=== PATIENT | male | born 1950 | race Caucasian/White ===

== ENCOUNTER → 2018-04-09 08:14 | Outpatient (CLI) | payer MEDICARE, SELFPAY ==
[2018-04-09 09:29] LABS: Hemoglobin A1C% w Est Avg Glu 6.9 % (4.0-6.0)
[2018-04-09 09:39] LABS: BUN Creatinine Ratio 12.2 (6-22); Blood Urea Nitrogen 11 mg/dL (9-20); Calcium 8.7 mg/dL (8.4-10.2); Carbon Dioxide 27 mmol/L (22-32); Chloride 101 mmol/L (98-107); Estimated Glomerular Filt Rate > 60.0 mL/min (>60); Glucose 79 mg/dL (80-110); HEMOLYSIS < 15 (0-50); Potassium 4.1 mmol/L (3.4-5.1); Sodium 143 mmol/L (137-145)
== END ==
PROVIDERS: Family Provider Internal Medicine; PCP Internal Medicine; Visit Provider Internal Medicine
DX: E11.65 Type 2 diabetes mellitus with hyperglycemia (principal)
CPT/HCPCS: 36415; 80048; 83036

== ENCOUNTER → 2018-09-01 11:26 | Outpatient (CLI) | payer MEDICARE, SELFPAY ==
[2018-09-01 12:55] LABS: BUN Creatinine Ratio 13.3 (6-22); Blood Urea Nitrogen 12 mg/dL (9-20); Calcium 8.3 mg/dL (8.4-10.2); Carbon Dioxide 25 mmol/L (22-32); Chloride 100 mmol/L (98-107); Estimated Glomerular Filt Rate > 60.0 mL/min (>60); Glucose 186 mg/dL (80-110); HEMOLYSIS < 15 (0-50); Potassium 4.6 mmol/L (3.4-5.1); Sodium 140 mmol/L (137-145)
[2018-09-01 13:03] LABS: Hemoglobin A1C% w Est Avg Glu 9.8 % (4.0-6.0)
[2018-09-01 14:58] LABS: Creatinine Urine Random 202.5 mg/dL
[2018-09-01 15:00] LABS: Microalbumi Creatinin Ratio Ur 30.6 ug/mg CR (<30); Microalbumin Urine Random 6.2 mg/dL (0-1.6)
== END ==
PROVIDERS: PCP Internal Medicine; Visit Provider Internal Medicine
DX: E11.65 Type 2 diabetes mellitus with hyperglycemia (principal); E78.2 Mixed hyperlipidemia; I10 Essential (primary) hypertension; Z79.4 Long term (current) use of insulin
CPT/HCPCS: 36415; 80048; 82043; 82570; 83036

== ENCOUNTER → 2018-09-10 09:29 | Outpatient (CLI) | payer MEDICARE, SELFPAY ==
--- NOTE | 2018-09-10 09:31 | DI.ECHO.S_ITS ---
[facility] +---------+ : : [address] : : : : [id number] : : : : Phone: [phone]---------+ Echocardiogram Report + + :Name: CHRISTOPHE COBOS Study Date: 09/10/2018 Height: 66 in : :[facility] Exam Location: [place] Weight: 205 lb : : Gender: Male BSA: 2.0 m2 : :: 1950 Age: 67 yrs BP: 110/76 mmHg: :Reason For Study: ARRHYTHMIA : :Ordering Physician: Dr. Franco : :Megan Performed By: Dawna Norton : :Referring: DANIELLE TRUJILLO R : + + Interpretation Summary 1) Moderately dilated left ventricle with mildly to moderately reduced systolic function (EF about 40%). 2) Normal right ventricular size and function. 3) Moderate biatrial enlargement. 4) A patent foramen ovale is suspected (apical windows). 5) No significant valvular abnormalities. 6) Aortic root is mildly enlarged at 4.3 cm. The ascending aorta is mild- moderately enlarged at 4.3cm. The aortic arch is mildly enlarged at 3.6cm. 7) Compared to the Echo done 04/04/2015, no significant change. Procedure: A two-dimensional transthoracic echocardiogram with color flow and Doppler was performed. The study quality was technically adequate. Comparison is made with the echocardiogram of 04/04/15. The patient was in normal sinus rhythm during the exam. The patient had frequent PVCs during the exam. Left Ventricle: Proximal septal thickening is noted. The left ventricle is moderately dilated. Left ventricular systolic function is mild to moderately reduced. Left ventricular ejection fraction is estimated to be 40 +/- 5%. There is mild to moderate global hypokinesis of the left ventricle. Diastolic function could not be accurately assessed due to contradictory data. Right Ventricle: The right ventricle is normal in size and function. Atria: The left atrium is moderately dilated. The right atrium is moderately dilated. The atrial septum is aneurysmal. A patent foramen ovale is suspected. Mitral Valve: The mitral valve leaflets appear mildly thickened, but open well. There is mild mitral regurgitation. There are multiple regurgitant jets present. Aortic Valve: The aortic valve is normal in structure and function. There is trace aortic regurgitation. Tricuspid Valve: The tricuspid valve is normal. There is trace tricuspid regurgitation. The right ventricular systolic pressure is estimated to be at least 22 mmHg based on an estimated right atrial pressure of 3 mm Hg. Pulmonic Valve: The pulmonic valve is not well seen, but is grossly normal. There is trace pulmonic regurgitation. Great Vessels: The aortic root is mildly dilated. The ascending aorta is mild-moderately enlarged. The aortic arch is mildly enlarged. The pulmonary artery is normal size. The IVC is of normal diameter and collapses greater than 50% with a sniff. This suggests a low right atrial pressure of 3 mm Hg. Pericardium/ Pleura There is no pericardial effusion. There is no pleural effusion. MMode/2D Measurements & Calculations LVIDd: 6.4 cm LVOT diam: 2.2 cm LVIDs: 5.1 cm Ao root diam: 4.3 cm FS: 19.4 % asc Aorta Diam: 4.3 cm EPSS: 1.6 cm Ao Arch Diam (Prox Trans): 3.6 cm IVSd: 1.1 cm LVPWd: 0.97 cm LV thompson. diameter/BSA (cm/m^2): 3.1 LV sys. diameter/BSA (cm/m^2): 2.5 LA A2 area: 25.9 cm2 RA long axis: 4.8 cm LA A4 area: 23.1 cm2 RA area: 20.9 cm2 LA length (vol): 5.5 cm RA vol: 76.8 ml LA vol: 91.4 ml RA : 38.0 ml/m2 LA vol index: 45.2 ml/m2 IVC diam: 1.9 cm RVD1 (basal): 5.1 cm RVD2 (mid): 2.8 cm TAPSE: 2.3 cm Doppler Measurements & Calculations Ao V2 max: 85.5 cm/sec LVOT Max Ozzie: 73.5 cm/sec Ao V2 mean: 58.1 cm/sec LV V1 max P.2 mmHg Ao max P.9 mmHg LV V1 VTI: 12.4 cm Ao mean P.6 mmHg ADAM(I,D): 3.1 cm2 Ao V2 VTI: 15.1 cm ADAM(V,D): 3.2 cm2 sev ratio: 0.82 ADAM indexed to BSA (cm^2/m^2): 1.5 MV E max ozzie: 94.4 cm/sec TR max ozzie: 218.2 cm/sec TR max P.0 mmHg PA V2 max: 66.1 cm/sec PA V2 mean: 40.6 cm/sec PA mean P.76 mmHg PA pr(Accel): 44.1 mmHg Reading Physician:07:28 PM
== END ==
PROVIDERS: PCP Internal Medicine; Visit Provider Internal Medicine
DX: I34.0 Nonrheumatic mitral (valve) insufficiency (principal); I49.9 Cardiac arrhythmia, unspecified; I77.810 Thoracic aortic ectasia
CPT/HCPCS: 93306

== ENCOUNTER → 2018-09-10 10:17 | Outpatient (CLI) | payer MEDICARE, SELFPAY ==
--- NOTE | 2018-09-28 16:31 | PM.CARDMON.1 ---
[employer] Report Referral & Results Date Patient Seen: 09/10/18 Requesting provider: Salvador Guzman Indication: Arrhythmia Duration of monitoring (days): 4 Diary information: There were 5 diary entries associated with sinus rhythm and PVCs There are 2 patient triggered events associated with sinus rhythm and PVCs Data: Minimum heart rate was 65 beats per minute at 09:42 on 09/11/2018 Maximum heart rate was 132 beats per minute at 23:36 on 09/11/2018 and was sinus tach Less than 1% of identified beats were PVCs however 2.9% of identified beats were PACs Impression: This change agent shows both PACs and PVCs with PACs being more frequent. Patient's symptoms may be attributable to PVCs however based on his diary events and triggered events No other more serious dysrhythmias identified on this study
== END ==
PROVIDERS: PCP Internal Medicine; Visit Provider Internal Medicine
DX: I49.9 Cardiac arrhythmia, unspecified (principal)
CPT/HCPCS: 0296T; 0298T

== ENCOUNTER → 2019-01-15 11:40 | Outpatient (CLI) | payer MEDICARE, SELFPAY ==
[2019-01-15 12:26] LABS: Hemoglobin A1C% w Est Avg Glu 7.8 % (4.0-6.0)
[2019-01-15 12:32] LABS: Alanine Aminotransferase 70 IU/L (21-72); Albumin 4.4 g/dL (3.5-5.0); Albumin Globulin Ratio 1.3 (1.0-2.8); Alkaline Phosphatase 54 U/L (38-126); Aspartate Aminotransferase 63 IU/L (17-59); BUN Creatinine Ratio 10.9 (6-22); Bilirubin Total 0.6 mg/dL (0.2-1.3); Blood Urea Nitrogen 12 mg/dL (9-20); Calcium 8.5 mg/dL (8.4-10.2); Carbon Dioxide 25 mmol/L (22-32); Chloride 102 mmol/L (98-107); Estimated Glomerular Filt Rate > 60.0 mL/min (>60); Globulin 3.3 g/dL (1.7-4.1); Glucose 95 mg/dL (80-110); HEMOLYSIS < 15 (0-50); Potassium 3.9 mmol/L (3.4-5.1); Sodium 140 mmol/L (137-145); Total Protein 7.7 g/dL (6.3-8.2)
== END ==
PROVIDERS: PCP Internal Medicine; Visit Provider Internal Medicine
DX: E11.65 Type 2 diabetes mellitus with hyperglycemia (principal); I10 Essential (primary) hypertension; Z79.4 Long term (current) use of insulin
CPT/HCPCS: 36415; 80053; 83036

== ENCOUNTER → 2019-03-30 15:59 | Outpatient (CLI) | payer MEDICARE, SELFPAY ==
--- NOTE | 2019-03-30 | DI.ECHO.S_ITS ---
[facility]---------+ [facility] +---------+ : : [address] : [address] : : : : [id number] : : : : Phone: [phone]---------+ Echocardiogram Report + + :Name: CHRISTOPHE COBOS Study Date: 03/30/2019 Height: 66 in : :[facility] Exam Location: IS Weight: 203 lb : : Gender: Male BSA: 2.0 m2 : :: 1950 Age: 68 yrs BP: 120/80 mmHg: :Reason For Study: Cardiomyopathy : :Ordering Physician: Armando : :Yasmine Patino Performed By: Michelle Page : :Referring: CASSI CANTU : + + Interpretation Summary Left ventricular ejection fraction is estimated to be 35 +/- 5%. This is unchanged compared to the previous study. There is moderate global hypokinesis of the left ventricle. The best contractility is in the lateral wall. Diastolic parameters suggest a relaxation abnormality of the left ventricle, consistent with probable normal filling pressures. However, the tissue Doppler velocities of the mitral annulus are abnormal. The right ventricle is normal in size and function. Both atria are normal in size. The atrial septum is aneurysmal. There is no Doppler evidence for an interatrial shunt. Pulmonary artery pressures cannot be estimated because of the lack of a measurable TR jet velocity. Comparison is made with the echocardiogram of 09/10/2018. There is no significant change. Procedure: A two-dimensional transthoracic echocardiogram with color flow and Doppler was performed. The study quality was technically adequate. Comparison is made with the echocardiogram of 09/10/2018. The heart rate ranged between 87-104 bpm during the study. Left Ventricle: The left ventricle is normal in size. There is moderate asymmetric left ventricular hypertrophy. This is unchanged compared to the previous study. Left ventricular ejection fraction is estimated to be 35 +/- 5%. There is moderate global hypokinesis of the left ventricle. The best contractility is in the lateral wall. Diastolic parameters suggest a relaxation abnormality of the left ventricle, consistent with probable normal filling pressures. However, the tissue Doppler velocities of the mitral annulus are abnormal. Right Ventricle: The right ventricle is normal in size and function. Atria: Both atria are normal in size. There is no Doppler evidence for an interatrial shunt. The atrial septum is aneurysmal. Mitral Valve: The mitral valve leaflets appear mildly thickened, but open well. There is trace mitral regurgitation. Aortic Valve: The aortic valve is trileaflet. The aortic valve opens well. There is no aortic valve stenosis. There is trace aortic regurgitation. Tricuspid Valve: The tricuspid valve is normal in structure and function. There is trace tricuspid regurgitation. Pulmonary artery pressures cannot be estimated because of the lack of a measurable TR jet velocity. Pulmonic Valve: The pulmonic valve is not well seen, but is grossly normal. There is trace pulmonic regurgitation. Great Vessels: The aortic root is mildly dilated. The ascending aorta is mild-moderately enlarged. This is unchanged compared to the previous study. The pulmonary artery is not well visualized, but is probably normal size. The IVC is of normal diameter and collapses greater than 50% with a sniff. This suggests a low right atrial pressure of 3 mm Hg. Pericardium/ Pleura There is no pericardial effusion. There is no pleural effusion. MMode/2D Measurements & Calculations LVIDd: 5.5 cm Ao root diam: 4.1 cm LVIDs: 4.9 cm asc Aorta Diam: 4.3 cm FS: 11.8 % EPSS: 1.3 cm IVSd: 0.63 cm LVPWd: 1.4 cm LV thompson. diameter/BSA (cm/m^2): 2.8 LV sys. diameter/BSA (cm/m^2): 2.4 LA A2 area: 16.7 cm2 RA long axis: 8.0 cm LA A4 area: 24.4 cm2 RA area: 18.6 cm2 LA length (vol): 5.5 cm RA vol: 36.8 ml LA vol: 62.9 ml RA : 18.3 ml/m2 LA vol index: 31.2 ml/m2 IVC diam: 1.8 cm RVD1 (basal): 4.2 cm LVAd ap4: 34.1 cm2 RVD2 (mid): 3.0 cm LVAs ap4: 26.0 cm2 TAPSE: 2.4 cm LVLs ap4: 7.1 cm LVAd ap2: 22.3 cm2 LVLd ap2: 7.7 cm LVAs ap2: 16.6 cm2 LVLs ap2: 6.4 cm Doppler Measurements & Calculations Ao V2 max: 106.1 cm/sec LVOT Max Ozzie: 41.8 cm/sec Ao V2 mean: 76.3 cm/sec LV V1 max P.70 mmHg Ao max P.5 mmHg LV V1 VTI: 7.6 cm Ao mean P.6 mmHg sev ratio: 0.45 Ao V2 VTI: 16.9 cm MV E max ozzie: 38.7 cm/sec TR max ozzie: 157.9 cm/sec MV A max ozzie: 68.8 cm/sec TR max P.0 mmHg MV E/A: 0.56 PA V2 max: 60.8 cm/sec Med Peak E' Ozzie: 4.3 cm/sec PA V2 mean: 34.7 cm/sec E/E' med: 8.9 PA mean P.59 mmHg Lat Peak E' Ozzie: 4.9 cm/sec PA Accel Time: 0.09 sec E/E' lat: 8.0 E/e' average: 8.4 MV dec time: 0.08 sec Electronically signed by: Armando Underwood M.D. on Reading Physician:03/31/2019 09:01 AM
== END ==
PROVIDERS: PCP Internal Medicine; Visit Provider Internal Medicine Cardiovascular Disease
DX: I42.9 Cardiomyopathy, unspecified (principal); I77.89 Other specified disorders of arteries and arterioles
CPT/HCPCS: 93306

== ENCOUNTER → 2019-04-15 10:27 | Outpatient (CLI) | payer MEDICARE, SELFPAY ==
[2019-04-15 11:44] LABS: Hemoglobin A1C% w Est Avg Glu 7.8 % (4.0-6.0)
[2019-04-15 12:00] LABS: Alanine Aminotransferase 59 IU/L (21-72); Albumin 4.1 g/dL (3.5-5.0); Albumin Globulin Ratio 1.4 (1.0-2.8); Alkaline Phosphatase 64 U/L (38-126); Aspartate Aminotransferase 54 IU/L (17-59); BUN Creatinine Ratio 12.2 (6-22); Bilirubin Total 0.5 mg/dL (0.2-1.3); Blood Urea Nitrogen 11 mg/dL (9-20); Calcium 8.9 mg/dL (8.4-10.2); Carbon Dioxide 26 mmol/L (22-32); Chloride 99 mmol/L (98-107); Estimated Glomerular Filt Rate > 60.0 mL/min (>60); Glucose 110 mg/dL (80-110); HEMOLYSIS < 15 (0-50); Potassium 4.3 mmol/L (3.4-5.1); Sodium 137 mmol/L (137-145); Total Protein 7.1 g/dL (6.3-8.2)
== END ==
PROVIDERS: PCP Internal Medicine; Visit Provider Internal Medicine
DX: E11.65 Type 2 diabetes mellitus with hyperglycemia (principal); E78.2 Mixed hyperlipidemia; I10 Essential (primary) hypertension; Z79.4 Long term (current) use of insulin
CPT/HCPCS: 36415; 80053; 83036

== ENCOUNTER → 2019-07-08 10:39 | Outpatient (CLI) | payer MEDICARE, SELFPAY ==
[2019-07-08 12:24] LABS: Hemoglobin A1C% w Est Avg Glu 8.3 % (4.0-6.0)
[2019-07-08 13:13] LABS: Alanine Aminotransferase 49 IU/L (21-72); Albumin 4.3 g/dL (3.5-5.0); Albumin Globulin Ratio 1.4 (1.0-2.8); Alkaline Phosphatase 59 U/L (38-126); Aspartate Aminotransferase 50 IU/L (17-59); Bilirubin Total 0.7 mg/dL (0.2-1.3); Blood Urea Nitrogen 12 mg/dL (9-20); Calcium 8.6 mg/dL (8.4-10.2); Carbon Dioxide 25 mmol/L (22-32); Chloride 101 mmol/L (98-107); Estimated Glomerular Filt Rate > 60.0 mL/min (>60); Glucose 76 mg/dL (80-110); HEMOLYSIS < 15 (0-50); Sodium 140 mmol/L (137-145); Total Protein 7.3 g/dL (6.3-8.2)
== END ==
PROVIDERS: PCP Internal Medicine; Visit Provider Internal Medicine
DX: E11.65 Type 2 diabetes mellitus with hyperglycemia (principal); I10 Essential (primary) hypertension; Z79.4 Long term (current) use of insulin
CPT/HCPCS: 36415; 80053; 83036

== ENCOUNTER → 2019-09-20 15:45 | Outpatient (CLI) | payer MEDICARE, SELFPAY ==
[2019-09-20 16:49] LABS: BUN Creatinine Ratio 11.1 (6-22); Blood Urea Nitrogen 10 mg/dL (9-20); Calcium 9.5 mg/dL (8.4-10.2); Carbon Dioxide 27 mmol/L (22-32); Chloride 101 mmol/L (98-107); Estimated Glomerular Filt Rate > 60.0 mL/min (>60); Glucose 213 mg/dL (80-110); HEMOLYSIS < 15 (0-50); Potassium 4.6 mmol/L (3.4-5.1); Sodium 138 mmol/L (137-145)
[2019-09-20 17:00] LABS: Erythrocyte Sedimentation Rate 37 MM/HR (0-15)
== END ==
PROVIDERS: PCP Internal Medicine; Visit Provider Internal Medicine
DX: E11.9 Type 2 diabetes mellitus without complications (principal); H49.22 Sixth [abducent] nerve palsy, left eye; R51 Headache
CPT/HCPCS: 36415; 80048; 85651

== ENCOUNTER → 2019-09-22 12:52 | Outpatient (CLI) | payer MEDICARE, SELFPAY ==
--- NOTE | 2019-09-22 12:55 | DI.CT.S_ITS ---
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 After the administration of intravenous contrast, 1 mm thick sections acquired from the aortic arch through the [place] of Krishna. Post-contrast 4.5 mm thick sections then re-acquired from the foramen magnum to the vertex. 3-dimensional dqdsuce-yparphqvt-ijkagvahyr (MIP) and/or volume rendering reformats were acquired of the central intracranial vasculature and neck separately. COMPARISON: [facility], , ANGIO HEAD WITHOUT CONTRAST, 06/03/2012, 11:45. FINDINGS: Image quality: Excellent. BRAIN: CSF spaces: Ventricles are normal in size and shape. Basal cisterns are patent. No extra-axial fluid collections. Brain: No midline shift. No intracranial bleeds or masses. [place]-white matter interface appears intact. Skull and face: Calvarium and facial bones appear intact, without suspicious lesions. Orbits appear normal. Sinuses: Sinuses and mastoids are clear. HEAD CT ANGIOGRAPHY: Anterior circulation: Intracranial internal carotid arteries are normal in size and flow. The flow within the paired anterior cerebral arteries is normal and symmetric. The flow within the middle cerebral arteries is normal and symmetric. The anterior communicating artery is seen. No aneurysms are seen. Posterior circulation: There is focal calcification seen involving the distal left vertebral artery (segment V4) with near complete occlusion. The vertebral arteries join to form a normal appearing basilar artery. There is a prominent right posterior communicating artery seen, with an accompanying diminutive right P1 segment. This is attributed to a type origin of the right posterior cerebral artery, which is considered to be a normal developmental variant of typically no clinical consequence. Flow within the posterior cerebral arteries is normal and symmetric. No aneurysms are seen. NECK CT ANGIOGRAPHY: Carotid system: The great vessels demonstrate a conventional anatomy as they arise from the aortic arch. The origins of the common carotid arteries appear patent. The common carotid arteries demonstrate normal caliber and courses. The bifurcation regions are both widely patent. The internal carotid arteries demonstrate normal calibers and courses. Posterior circulation: The origins of the vertebral arteries both appear widely patent. The more superior extracranial portions of both vertebral arteries also demonstrate normal courses. Narrowing of V4 can be seen, as described above. They join to form a normal appearing basilar artery. Soft tissues: Visualized neck soft tissues demonstrate no suspicious abnormalities. Bones: No suspicious bony lesions. Visualized cervical spine appears normally aligned. Age-appropriate bony degenerative changes are seen, including moderate disc space narrowing at the C5-C6 level. IMPRESSION: No intracranial aneurysms are seen. There is focal prominent calcification seen involving the distal left vertebral artery (segment V4) with subtotal occlusion. Otherwise, no significant narrowings can be seen. Any quantitative measurements of stenosis were performed using NASCET criteria. Dictated by: Moo Gottlieb M.D. on 09/22/2019 at 13:21 Approved by: Moo Gottlieb M.D. on 09/22/2019 at 13:27
== END ==
PROVIDERS: PCP Internal Medicine; Visit Provider Internal Medicine
DX: I65.02 Occlusion and stenosis of left vertebral artery (principal); R51 Headache; H49.22 Sixth [abducent] nerve palsy, left eye; E11.9 Type 2 diabetes mellitus without complications
CPT/HCPCS: 70496; 70498; Q9967

== ENCOUNTER → 2019-10-06 13:15 | Outpatient (CLI) | payer MEDICARE, SELFPAY ==
[2019-10-06 13:47] LABS: BUN Creatinine Ratio 11.1 (6-22); Blood Urea Nitrogen 10 mg/dL (9-20); Calcium 8.4 mg/dL (8.4-10.2); Carbon Dioxide 26 mmol/L (22-32); Chloride 102 mmol/L (98-107); Estimated Glomerular Filt Rate > 60.0 mL/min (>60); Glucose 126 mg/dL (80-110); HEMOLYSIS < 15 (0-50); Potassium 4.3 mmol/L (3.4-5.1); Sodium 138 mmol/L (137-145)
[2019-10-06 15:45] LABS: Hemoglobin A1C% w Est Avg Glu 7.5 % (4.0-6.0)
== END ==
PROVIDERS: PCP Internal Medicine; Visit Provider Internal Medicine
DX: E11.65 Type 2 diabetes mellitus with hyperglycemia (principal); Z79.4 Long term (current) use of insulin
CPT/HCPCS: 36415; 80048; 83036

== ENCOUNTER → 2020-01-05 12:48 | Outpatient (CLI) | payer MEDICARE, SELFPAY ==
[2020-01-05 13:30] LABS: Hemoglobin A1C% w Est Avg Glu 7.6 % (4.0-6.0)
[2020-01-05 13:37] LABS: BUN Creatinine Ratio 16.7 (6-22); Blood Urea Nitrogen 15 mg/dL (9-20); Calcium 9.9 mg/dL (8.4-10.2); Carbon Dioxide 26 mmol/L (22-32); Chloride 99 mmol/L (98-107); Estimated Glomerular Filt Rate > 60.0 mL/min (>60); Glucose 161 mg/dL (80-110); HEMOLYSIS < 15 (0-50); Potassium 4.6 mmol/L (3.4-5.1); Sodium 138 mmol/L (137-145)
== END ==
PROVIDERS: PCP Internal Medicine; Referring Provider Internal Medicine; Visit Provider Internal Medicine
DX: E11.65 Type 2 diabetes mellitus with hyperglycemia (principal); I10 Essential (primary) hypertension; Z79.4 Long term (current) use of insulin
CPT/HCPCS: 36415; 80048; 83036

== ENCOUNTER → 2020-04-12 09:17 | Outpatient (CLI) | payer MEDICARE, SELFPAY ==
[2020-04-12 10:22] LABS: Hemoglobin A1C% w Est Avg Glu 8.3 % (4.0-6.0)
[2020-04-12 10:32] LABS: BUN Creatinine Ratio 14.1 (6-22); Blood Urea Nitrogen 12 mg/dL (9-20); Carbon Dioxide 21 mmol/L (22-32); Chloride 102 mmol/L (98-107); Estimated Glomerular Filt Rate > 60.0 mL/min (>60); Glucose 265 mg/dL (80-110); HEMOLYSIS < 15 (0-50); Potassium 4.4 mmol/L (3.4-5.1); Sodium 136 mmol/L (137-145)
== END ==
PROVIDERS: PCP Internal Medicine; Referring Provider Internal Medicine; Visit Provider Internal Medicine
DX: E11.65 Type 2 diabetes mellitus with hyperglycemia (principal); I10 Essential (primary) hypertension; Z79.4 Long term (current) use of insulin
CPT/HCPCS: 36415; 80048; 83036

== ENCOUNTER → 2020-07-25 10:57 | Outpatient (CLI) | payer MEDICARE, SELFPAY ==
[2020-07-25 11:57] LABS: Hemoglobin A1C% w Est Avg Glu 7.4 % (4.0-6.0)
[2020-07-25 12:08] LABS: BUN Creatinine Ratio 14.6 (6-22); Blood Urea Nitrogen 13 mg/dL (9-20); Calcium 8.9 mg/dL (8.4-10.2); Carbon Dioxide 21 mmol/L (22-32); Chloride 104 mmol/L (98-107); Estimated Glomerular Filt Rate > 60.0 mL/min (>60); Glucose 115 mg/dL (80-110); HEMOLYSIS < 15 (0-50); Potassium 4.5 mmol/L (3.4-5.1); Sodium 138 mmol/L (137-145)
== END ==
PROVIDERS: PCP Internal Medicine; Referring Provider Internal Medicine; Visit Provider Internal Medicine
DX: E11.65 Type 2 diabetes mellitus with hyperglycemia (principal); I42.8 Other cardiomyopathies; Z79.4 Long term (current) use of insulin; Z95.810 Presence of automatic (implantable) cardiac defibrillator
CPT/HCPCS: 36415; 80048; 83036

== ENCOUNTER → 2020-10-18 08:42 | Outpatient (CLI) | payer MEDICARE, SELFPAY ==
[2020-10-18 10:04] LABS: Hemoglobin A1C% w Est Avg Glu 7.8 % (4.0-6.0)
[2020-10-18 10:35] LABS: BUN Creatinine Ratio 16.8 (6-22); Blood Urea Nitrogen 16 mg/dL (9-20); Calcium 8.7 mg/dL (8.4-10.2); Carbon Dioxide 25 mmol/L (22-32); Chloride 102 mmol/L (98-107); Estimated Glomerular Filt Rate > 60.0 mL/min (>60); Glucose 135 mg/dL (80-110); HEMOLYSIS < 15 (0-50); Sodium 138 mmol/L (137-145)
== END ==
PROVIDERS: PCP Internal Medicine; Referring Provider Internal Medicine; Visit Provider Internal Medicine
DX: E11.9 Type 2 diabetes mellitus without complications (principal); E78.2 Mixed hyperlipidemia; I10 Essential (primary) hypertension
CPT/HCPCS: 36415; 80048; 83036

== ENCOUNTER → 2020-10-20 12:15 | Outpatient (CLI) | payer MEDICARE, SELFPAY ==
--- NOTE | 2020-10-20 12:17 | DI.CT.S_ITS ---
PROCEDURE: CT KIDNEY URETER BLADDER (KUB) INDICATIONS: Left Flank Pain TECHNIQUE: Noncontrast 5 mm thick sections acquired from the diaphragms to the symphysis. 5 mm thick coronal and sagittal reformats were then performed. For radiation dose reduction, the following was used: automated exposure control, adjustment of mA and/or kV according to patient size. COMPARISON: None. FINDINGS: Image quality: Excellent. Lung bases: Lung bases are clear. Heart size is normal. Urinary system: Both kidneys are normal in size. No kidney stones. No hydronephrosis or perinephric fat stranding. Both ureters appear non-dilated throughout their expected courses. Bladder wall thickness is normal; no calcified bladder stones. Other solid organs: Liver is normal in size. Gallbladder appears in normal, partially contracted . Pancreas is normal in contours. Spleen is normal in size. No adrenal nodules. Peritoneum and bowel: Unenhanced bowel loops demonstrate normal wall thickness and caliber. No free fluid or air. Nodes and vessels: No retroperitoneal or mesenteric adenopathy by size criteria. Aorta and inferior vena cava are normal in caliber. Abdominal wall: No ventral hernias. Pelvis: No free pelvic fluid. No inguinal hernias or adenopathy. Bones: No suspicious bony lesions. No vertebral body compression fractures. IMPRESSION: No hydronephrosis or nephrolithiasis is found. No inflammatory changes seen along the renal margins or ureters. A source of asymmetric left-sided predominant flank pain is not identified. Diverticulitis also is not seen. Dictated by: Tee Kidd M.D. on 10/20/2020 at 16:32 Approved by: Tee Kidd M.D. on 10/20/2020 at 16:33
== END ==
PROVIDERS: PCP Internal Medicine; Referring Provider Internal Medicine; Visit Provider Internal Medicine
DX: R10.9 Unspecified abdominal pain (principal)
CPT/HCPCS: 74176

== ENCOUNTER → 2020-11-14 11:35 | Outpatient (CLI) | payer MEDICARE, SELFPAY ==
[2020-11-14 13:26] LABS: BUN Creatinine Ratio 18.4 (6-22); Blood Urea Nitrogen 16 mg/dL (9-20); Calcium 9.4 mg/dL (8.4-10.2); Carbon Dioxide 25 mmol/L (22-32); Chloride 100 mmol/L (98-107); Cholesterol 166 mg/dL (140-199); Estimated Glomerular Filt Rate > 60.0 mL/min (>60); Glucose 183 mg/dL (80-110); HDL Cholesterol 34 mg/dL (40-60); HEMOLYSIS 18 (0-50); Magnesium 1.1 mg/dL (1.6-2.3); Potassium 4.2 mmol/L (3.4-5.1); Sodium 136 mmol/L (137-145); Triglycerides 500 mg/dL (35-150)
== END ==
PROVIDERS: PCP Internal Medicine; Referring Provider Nurse Practitioner; Visit Provider Nurse Practitioner
DX: I10 Essential (primary) hypertension (principal); E78.5 Hyperlipidemia, unspecified; I42.0 Dilated cardiomyopathy; Z95.810 Presence of automatic (implantable) cardiac defibrillator; R00.0 Tachycardia, unspecified
CPT/HCPCS: 36415; 80048; 80061; 83735

== ENCOUNTER → 2021-01-12 14:45 | Outpatient (CLI) | payer MEDICARE, SELFPAY ==
[2021-01-12] MEDS: COVID-19 VACC, Ad26(JANSSEN)/PF 0.5 ML IM (14:50)
== END ==
PROVIDERS: PCP Internal Medicine; Visit Provider Internal Medicine
DX: Z23 Encounter for immunization (principal)
CPT/HCPCS: 0031A; 91303

== ENCOUNTER → 2021-01-17 12:19 | Outpatient (CLI) | payer MEDICARE, SELFPAY ==
[2021-01-17 13:30] LABS: Hemoglobin A1C% w Est Avg Glu 8.6 % (4.0-6.0)
[2021-01-17 13:42] LABS: BUN Creatinine Ratio 17.8 (6-22); Blood Urea Nitrogen 13 mg/dL (9-20); Calcium 8.9 mg/dL (8.4-10.2); Carbon Dioxide 21 mmol/L (22-32); Chloride 101 mmol/L (98-107); Estimated Glomerular Filt Rate > 60.0 mL/min (>60); Glucose 95 mg/dL (80-110); HEMOLYSIS 28 (0-50); Potassium 4.3 mmol/L (3.4-5.1); Sodium 135 mmol/L (137-145)
== END ==
PROVIDERS: PCP Internal Medicine; Referring Provider Internal Medicine; Visit Provider Internal Medicine
DX: E11.65 Type 2 diabetes mellitus with hyperglycemia (principal); I10 Essential (primary) hypertension; Z79.4 Long term (current) use of insulin
CPT/HCPCS: 36415; 80048; 83036

== ENCOUNTER → 2021-02-08 10:36 | Outpatient (CLI) | payer MEDICARE, SELFPAY ==
[2021-02-08 11:39] LABS: BUN Creatinine Ratio 15.3 (6-22); Blood Urea Nitrogen 15 mg/dL (9-20); Calcium 9.6 mg/dL (8.4-10.2); Carbon Dioxide 21 mmol/L (22-32); Chloride 101 mmol/L (98-107); Cholesterol 138 mg/dL (140-199); Estimated Glomerular Filt Rate > 60.0 mL/min (>60); Glucose 259 mg/dL (80-110); HDL Cholesterol 31 mg/dL (40-60); HEMOLYSIS < 15 (0-50); LDL Cholesterol Calculated 27 mg/dL (<100); Potassium 4.3 mmol/L (3.4-5.1); Sodium 134 mmol/L (137-145); Triglycerides 400 mg/dL (35-150)
[2021-02-08 12:43] LABS: Magnesium 0.9 mg/dL (1.6-2.3)
== END ==
PROVIDERS: PCP Internal Medicine; Referring Provider Nurse Practitioner; Visit Provider Nurse Practitioner
DX: E78.5 Hyperlipidemia, unspecified (principal); I10 Essential (primary) hypertension; Z95.810 Presence of automatic (implantable) cardiac defibrillator; R00.0 Tachycardia, unspecified
CPT/HCPCS: 36415; 80048; 80061; 83735

== ENCOUNTER → 2021-03-19 12:44 | Outpatient (CLI) | payer MEDICARE, SELFPAY ==
[2021-03-19 13:47] LABS: Hemoglobin A1C% w Est Avg Glu 7.5 % (4.0-6.0)
[2021-03-19 13:52] LABS: BUN Creatinine Ratio 17.8 (6-22); Blood Urea Nitrogen 16 mg/dL (9-20); Calcium 9.5 mg/dL (8.4-10.2); Carbon Dioxide 22 mmol/L (22-32); Chloride 103 mmol/L (98-107); Estimated Glomerular Filt Rate > 60.0 mL/min (>60); Glucose 173 mg/dL (80-110); HEMOLYSIS < 15 (0-50); Potassium 4.5 mmol/L (3.4-5.1); Sodium 136 mmol/L (137-145)
== END ==
PROVIDERS: PCP Internal Medicine; Referring Provider Internal Medicine; Visit Provider Internal Medicine
DX: E11.65 Type 2 diabetes mellitus with hyperglycemia (principal); I10 Essential (primary) hypertension; Z79.4 Long term (current) use of insulin
CPT/HCPCS: 36415; 80048; 83036

== ENCOUNTER → 2021-06-13 11:59 | Outpatient (CLI) | payer MEDICARE, SELFPAY ==
[2021-06-13 13:01] LABS: Hemoglobin A1C% w Est Avg Glu 7.2 % (4.0-6.0)
[2021-06-13 13:40] LABS: BUN Creatinine Ratio 11.5 (6-22); Blood Urea Nitrogen 12 mg/dL (9-20); Calcium 8.9 mg/dL (8.4-10.2); Carbon Dioxide 24 mmol/L (22-32); Chloride 104 mmol/L (98-107); Estimated Glomerular Filt Rate > 60.0 mL/min (>60); Glucose 77 mg/dL (80-110); HEMOLYSIS < 15 (0-50); Magnesium 1.3 mg/dL (1.6-2.3); Potassium 4.5 mmol/L (3.4-5.1); Sodium 137 mmol/L (137-145)
== END ==
PROVIDERS: PCP Internal Medicine; Referring Provider Internal Medicine; Visit Provider Internal Medicine
DX: E83.42 Hypomagnesemia (principal); E11.65 Type 2 diabetes mellitus with hyperglycemia; E78.2 Mixed hyperlipidemia; Z79.4 Long term (current) use of insulin; I10 Essential (primary) hypertension
CPT/HCPCS: 36415; 80048; 83036; 83735

== ENCOUNTER 2021-07-06 00:54 | Observation (INO) | payer MEDICARE, SELFPAY ==
[2021-07-06] VITALS (12 sets, daily range): BP systolic 131–175; BP diastolic 68–100; PULSE 67–96; RESP 16–23; TEMP 36.1–36.6; O2SAT 96–98; BMI 32.2
--- NOTE | 2021-07-06 01:04 | DI.CT.S_ITS ---
PROCEDURE: CT STROKE INDICATIONS: left facial weakness TECHNIQUE: Noncontrast 4.5 mm thick angled axial sections acquired from the foramen magnum to the vertex, with coronal reformats. For radiation dose reduction, the following was used: automated exposure control, adjustment of mA and/or kV according to patient size. COMPARISON: None. FINDINGS: Image quality: Excellent. CSF spaces: Basal cisterns are patent. No extra-axial fluid collections. The ventricles are symmetric in size and shape. Brain: No intracranial bleeds or masses. 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 There is cerebral volume loss for age, with resultant ventricular and sulcal prominence. There are periventricular and deep white matter chronic small vessel ischemic changes. There is intracranial internal carotid artery atherosclerosis. Skull and face: Calvarium and visualized facial bones appear intact, without suspicious lesions. Sinuses: Visualized sinuses and mastoids are clear. IMPRESSION: No acute intracranial disease process. This study fulfills neurological imaging criteria for inclusion or exclusion of acute stroke therapies based on available published neurological guidelines. Dictated by: Mima Reece MD, PhD on 07/06/2021 at 7:14 Approved by: Mima Reece MD, PhD on 07/06/2021 at 7:15
--- NOTE | 2021-07-06 01:05 | DI.CT.S_ITS ---
PROCEDURE: CT ANGIO HEAD AND NECK INDICATIONS: Stroke, left facial weakness TECHNIQUE: After the administration of intravenous contrast, 1 mm thick sections acquired from the aortic arch through the [place] of Krishna. Post-contrast 4.5 mm thick sections then re-acquired from the foramen magnum to the vertex. 3-dimensional cspqdix-txpbruscs-xzmyxcfmid (MIP) and/or volume rendering reformats were acquired of the central intracranial vasculature and neck separately. COMPARISON: [facility], CT, CT STROKE, 07/06/2021, 1:12. FINDINGS: Image quality: Excellent. BRAIN: CSF spaces: Ventricles are normal in size and shape. Basal cisterns are patent. No extra-axial fluid collections. Brain: No midline shift. No intracranial bleeds. Densely calcified 7 x 3 millimeter left temporal extra-axial lesion noted which may represent a dural ossification or less likely calcified meningioma. Chronic right rivas radiata lacunar infarct. There is mild, diffuse cerebral volume loss. There are moderate periventricular and subcortical white matter chronic microvascular ischemic changes. [place]-white matter interface appears intact. Skull and face: Calvarium and facial bones appear intact, without suspicious lesions. Orbits appear normal. Sinuses: Sinuses and mastoids are clear. HEAD CT ANGIOGRAPHY: Anterior circulation: Intracranial internal carotid arteries are normal in size and flow. The flow within the paired anterior cerebral arteries is normal and symmetric. The flow within the middle cerebral arteries is normal and symmetric. The anterior communicating artery is seen. No aneurysms are seen. Posterior circulation: Atherosclerotic calcification noted in the V4 segment of the left vertebral artery which causes high-grade stenosis to near occlusion of the vessel. Intracranial right vertebral artery is fully patent. Normal flow noted in the basilar artery. Flow within the posterior cerebral arteries is normal and symmetric. Right posterior cerebral artery has a origin. No aneurysms are seen. Dural sinuses demonstrate normal postcontrast enhancement. NECK CT ANGIOGRAPHY: Carotid system: The great vessels demonstrate a conventional anatomy as they arise from the aortic arch. The origins of the common carotid arteries appear patent. The common carotid arteries demonstrate normal caliber and courses. Origin of the right internal carotid artery is fully patent. Atherosclerotic plaque noted in the origin of the left internal carotid artery which causes less than 50% stenosis of the vessel. Posterior circulation: Soft atherosclerotic plaque noted in the origin of the right vertebral artery which causes high-grade stenosis to near occlusion of the vessel. There is opacification of the right vertebral artery distal to the stenosis in the origin of the vessel. Origin of the left vertebral artery is fully patent. The more superior extracranial portions of both vertebral arteries also demonstrate normal courses and calibers. They join to form a normal appearing basilar artery. Soft tissues: Visualized neck soft tissues demonstrate no suspicious abnormalities. Left chest wall cardiac pacer. Visualized lungs are clear. Bones: No suspicious bony lesions. Visualized cervical spine appears normally aligned. IMPRESSION: 1. No acute intracranial disease process. 2. No large vessel occlusion, vascular dissection or aneurysm. 3. 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 4. Right internal carotid artery origin fully patent. Less than 50% stenosis of the origin of the left internal carotid artery. Any quantitative measurements of stenosis were performed using NASCET criteria. Dictated by: Mima Reece MD, PhD on 07/06/2021 at 8:08 Approved by: Mima Reece MD, PhD on 07/06/2021 at 8:18
--- NOTE | 2021-07-06 01:14 | ED_ITS ---
HPI - Neuro Symptoms/Deficit General Chief Complaint: Neuro Symptoms/Deficit Stated Complaint: loss of muscular control left side of face Time Seen by Provider: 07/06/21 00:57 Source: patient Mode of arrival: Ambulatory Limitations: no limitations History of Present Illness HPI Narrative: 70-year-old male occasional smoker with history of type 2 diabetes with use of insulin, hypertension, hyperlipidemia, GERD, cardiomyopathy with pacemaker presents with a chief complaint of left-sided facial numbness and weakness that started at 11:30 p.m.. He states that he was in his normal state of health throughout the course of the day and has no other symptoms leading into this. He noticed left-sided facial weakness when he was trying to drink at about 11 30 and was drooling out of his mouth. Additionally his only complaint otherwise is of an inability to close his left eye. He denies any trouble with speech, balance nor extremity numbness, tingling or weakness. He does not take any blood thinners. At registration he was complaining of neck discomfort and talking about its relationship to his facial symptoms and was therefore not recognized as code stroke until brought into the emergency department. He has no chest pain or shortness of breath. He has no nausea, vomiting or diarrhea. Upon arrival in the emergency department quickly was converted to a code stroke and taken to CT for evaluation, images pushed and tele stroke contacted Related Data Home Medications Medication Instructions Recorded Confirmed ivabradine 5 mg tablet 5 mg PO BID 04/12/20 06/19/21 magnesium oxide 400 mg (241.3 mg 400 mg PO DAILY 03/20/21 06/19/21 magnesium) tablet Previous Rx's Medication Instructions Recorded carvedilol 25 mg tablet (Coreg) 25 mg PO BID #180 tab 10/12/19 losartan 100 mg tablet (Cozaar) 100 mg PO QDAY #90 tab 10/12/19 simvastatin 40 mg tablet (Zocor) 20 mg PO DAILY #45 tab 10/12/19 spironolactone 25 mg tablet 25 mg PO QDAY #90 tab 10/12/19 Glucose: Test Strips #500 each 07/28/20 insulin NPH-regular 70-30 U-100 See Rx Instructions SUBCUT 08/30/20 insulin 100 unit/mL subcutaneous .COMPLEX #200 ml pen (Humulin 70/30 U-100 Jeane) tamsulosin 0.4 mg capsule 0.4 mg PO DAILY #90 cap 02/01/21 trazodone 50 mg tablet 50 mg PO HS #90 tabs 12/04/20 glipizide 10 mg tablet 10 mg PO BID #180 tab 01/02/21 metformin 500 mg tablet,extended 1,000 mg PO BID #360 tab 02/05/21 release 24 hr (Glucophage XR) gabapentin 300 mg capsule 300 mg PO BEDTIME #90 cap 04/30/21 nortriptyline 50 mg capsule See Rx Instructions PO HS #180 cap 04/30/21 omeprazole 20 mg capsule,delayed 20 mg PO Q DAY #90 cap 04/30/21 release flash glucose scanning reader #1 ea 06/19/21 (FreeStyle Tara 14 Day [place]) flash glucose sensor (FreeStyle #1 ea 06/19/21 Tara 14 Day Sensor) Allergies Allergy/AdvReac Type Severity Reaction Status Date / Time No Known Allergies Allergy Uncoded 06/19/21 10:28 Review of Systems Review of Systems Narrative: GENERAL: Denies chills, fatigue, malaise, fever, sweats. HEENT: Denies sinus pain, ear pain, sore throat, difficulty swallowing, dizziness. RESPIRATORY: Denies dyspnea, cough, wheezing, hemoptysis, sputum. CARDIOVASCULAR: Denies chest pain, palpitations, orthopnea, edema, GASTROINTESTINAL: Denies nausea, vomiting, abdominal pain, diarrhea, constipation, melena. : Denies dysuria, frequency, incontinence, hematuria, urinary retention. MUSCULOSKELETAL: denies weakness, joint pain, or bony pain SKIN: Denies rash, skin lesions, or other NEUROLOGIC: See HPI PSYCHIATRIC: No concerning psychosocial issues. 12 point review of systems is negative except for those stated above Patient History Medical History Automatic implantable cardiac defibrillator in situ (~07/2019) Degeneration of intervertebral disc of cervical region Diabetic peripheral neuropathy (07/25/15) Essential hypertension retirement current use of insulin (08/20/16) Mixed hyperlipidemia Nonischemic cardiomyopathy (09/09/16) Type 2 diabetes mellitus with hyperglycemia, with long-term current use of insulin Type 2 diabetes mellitus without complication Social History marital status: unmarried,single number of children: 0 household members: none lives independently: Yes caregiver/support person: Yes housing: house pets and animals: Yes education level: other (Bachelor's Degree) occupational status: other (Retired) current occupational exposures/hazards: No 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/yazidi: Religious travel history: recent leisure activities: music, reading and other (Hiking.) Smoking Status: Never smoker quit status: quit date established second hand exposure: No alcohol intake: current (1-2 drinks a day) substance use type: does not use Smoking Status: Never smoker alcohol intake frequency: a few times a month Substance Use Type: does not use Exam Narrative Exam Narrative: GENERAL: [70] year old patient appears stated age. Well- developed patient, in mild distress. HEAD: Atraumatic. Normocephalic. EYES: Pupils equal round and reactive. Extraocular motions intact. No scleral icterus. No injection or drainage. ENT: Nose without bleeding, purulent drainage. Throat without erythema, tonsillar hypertrophy or exudate. Airway patent. NECK: Trachea midline. Non tender CARDIOVASCULAR: Regular rate and rhythm without murmurs, gallops, or rubs. RESPIRATORY: Clear to auscultation. Breath sounds equal bilaterally. No wheezes, rales, or rhonchi. GASTROINTESTINAL: Abdomen soft, non-tender, nondistended. EXTREMITIES: No edema or joint tenderness. BACK: Nontender without deformity or crepitance. No flank tenderness. NEURO: AOx3. SKIN: No rash or erythema of visible areas Initial Vital Signs Initial Vital Signs: Vital Signs Temperature 97.9 F 07/06/21 01:07 Pulse Rate 96 H 07/06/21 01:07 Respiratory Rate 20 07/06/21 01:07 Blood Pressure 175/100 H 07/06/21 01:07 Pulse Oximetry 97 07/06/21 01:07 Scores NIH Stroke Scale Level of Conciousness: Alert, keenly responsive Ask month/age: Answers both questions correctly. Open/close eyes, close hand: Performs both tasks correctly Best gaze horizontal: Normal Visual schneider: No visual loss Facial palsy: Minor paralysis, flattened nasolabial fold, asymmetry on smiling Left arm drift: No drift for full 10 sec Right arm drift: No drift for full 10 sec Left leg drift: No drift for full 5 sec Right leg drift: No drift for full 5 sec Limb ataxia: Absent Sensory on face/arms/legs: Mild to moderate sensory loss, can tell touch Best language: Mild to moderate, slurs some words Dysarthria: Normal Extinction or inattention: No abnormality Total NIH Stroke scale score: 3 Course Orders Ordered: ED Orders 07/06/21 01:04 CT Stroke Stat Urine Drug Screen, Rapid Stat EKG-12 Lead Stat 07/06/21 01:05 CT angio head and neck Stat 07/06/21 01:10 Basic Metabolic Panel Stat Complete Blood Count AUTO DIFF Stat Troponin & CK Cardiac Panel Stat 07/06/21 01:20 Prothrombin Time INR Stat Sodium Chloride (Normal Saline 0.9%) 1,000 mls @ 150 mls/hr IV CONT REINA Discontinued Medications Aspirin (Aspirin 81 Mg Chew Tab) 324 mg PO NOW ONE Stop: 07/06/21 01:58 Consultations Consultation #1: call to TeleStroke. Patient has been evaluated at the bedside and discussed tPA with the patient who after receiving consent refused, stating that he felt the risk of a potential bad outcome from tPA was not worth the potential benefit. He understands that we have up until the 4.5 hour window to intervene and understands that if things worsen or he changes mind we can re visit the situation. Time: 01:13 Consultation #2: Dr. Guzman happy to accept on his service and will write his own orders. Vital Signs Vital signs: Vital Signs - 8 hr 07/06/21 01:07 07/06/21 01:27 07/06/21 01:30 Temperature 97.9 F Pulse Rate 96 H 86 85 Respiratory Rate 20 23 Blood Pressure 175/100 H 164/91 H 172/98 H Pulse Oximetry 97 97 96 MDM - Neuro Symptoms/Deficit Lab Data Result diagrams: 07/06/21 01:10 07/06/21 01:10 Labs: Lab Results 07/06/21 07/06/21 07/06/21 Range/Units 01:10 01:10 01:20 WBC 6.4 (4.5-11.0) X10^3/uL RBC 4.29 L (4.5-5.9) X10^6/uL Hgb 13.5 (13.5-17.5) g/dL Hct 39.5 L (41-53) % MCV 92.2 (80-100) fL MCH 31.5 (26-34) PG MCHC 34.2 (30-36) % RDW 14.0 (11.6-14.8) % Plt Count 157 (150-400) X10^3/uL Neut % (Auto) 50.3 (50-75) % Lymph % (Auto) 35.4 (25-40) % [place] % (Auto) 10.0 (3-14) % Eos % (Auto) 3.7 (2-4) % Baso % (Auto) 0.6 (0-2) % Neut # (Auto) 3200 (0469-8183) /uL Lymph # (Auto) 2300 (7841-8986) /uL [place] # (Auto) 600 (0-900) /uL Eos # (Auto) 200 (0-450) /uL Baso # (Auto) 0 (0-100) /uL PT 12.7 (10.1-12.7) SECONDS INR 1.1 (0.9-1.3) Sodium 138 (137-145) mmol/L Potassium 4.1 (3.4-5.1) mmol/L Chloride 104 (98-107) mmol/L Carbon Dioxide 22 (22-32) mmol/L BUN 11 (9-20) mg/dL Creatinine 0.82 (0.66-1.25) mg/dL Estimated GFR > 60.0 (>60) mL/min BUN/Creatinine Ratio 13.4 (6-22) Glucose 140 H (80-110) mg/dL Calcium 9.1 (8.4-10.2) mg/dL Total Creatine Kinase 278 H (55-170) U/L CK-MB (CK-2) 3.38 H (<2.37) ng/mL CK-MB (CK-2) Rel Index 1.2 L (1.5-5.0) % Troponin I 0.031 (0.01-0.034) ng/mL Point of Care Testing Glucose POC [address] scan - head: Radiologist's Impression: NAP CTA Head/Neck: Radiologist's Impression: No stenosis of right common carotid. No stenosis of left common carotid. Vertebral arteries are codominant. Wide patency of intracranial arterial circulation. MDM Narrative Medical decision making narrative: Patient will require hospitalization for further evaluation of his condition including ongoing neurologic exams, echoca rdiogram, stabilization and evaluation medications including appropriate discharge planning. Patient understands and is in agreement with the plan Discharge Plan Departure Patient Disposition: Admitted as Observation Clinical Impression: Cerebrovascular accident Admit Date/Time: 07/06/21 02:04 Admit Provider: Salvador Guzman
[2021-07-06 01:20] LABS: Add Manual Diff / Slide Review NO; Basophils Absolute Auto 0 /uL (0-100); Basophils Percent Auto 0.6 % (0-2); Eosinophils Absolute Auto 200 /uL (0-450); Eosinophils Percent Auto 3.7 % (2-4); Hematocrit 39.5 % (41-53); Hemoglobin 13.5 g/dL (13.5-17.5); Lymphocytes Absolute Auto 2300 /uL (1100-4500); Lymphocytes Percent Auto 35.4 % (25-40); Mean Corpuscular HGB Conc 34.2 % (30-36); Mean Corpuscular Hemoglobin 31.5 PG (26-34); Mean Corpuscular Volume 92.2 fL (80-100); Monocytes Absolute Auto 600 /uL (0-900); Neutrophils Absolute Auto 3200 /uL (1500-7000); Neutrophils Percent Auto 50.3 % (50-75); Platelet Count 157 X10^3/uL (150-400); Red Blood Cell Count 4.29 X10^6/uL (4.5-5.9); White Blood Cell Count 6.4 X10^3/uL (4.5-11.0)
[2021-07-06 01:30] LABS: BUN Creatinine Ratio 13.4 (6-22); Blood Urea Nitrogen 11 mg/dL (9-20); Calcium 9.1 mg/dL (8.4-10.2); Carbon Dioxide 22 mmol/L (22-32); Chloride 104 mmol/L (98-107); Creatine Kinase 278 U/L (55-170); Estimated Glomerular Filt Rate > 60.0 mL/min (>60); Glucose 140 mg/dL (80-110); Potassium 4.1 mmol/L (3.4-5.1); Sodium 138 mmol/L (137-145)
[2021-07-06 01:35] LABS: INR 1.1 (0.9-1.3); Prothrombin Time 12.7 SECONDS (10.1-12.7)
[2021-07-06 01:42] LABS: Troponin I 0.031 ng/mL (0.01-0.034)
[2021-07-06 01:46] LABS: CKMB % Relative Index 1.2 % (1.5-5.0); Creatine Kinase MB 3.38 ng/mL (<2.37); HEMOLYSIS 15 (0-50)
[2021-07-06] MEDS: ASPIRIN 81 MG CHEW TAB 324 MG PO (02:18)
[2021-07-06] MEDS: SODIUM CHLORIDE 0.9% 1,000 ML 150 ML IV (02:18)
--- NOTE | 2021-07-06 02:55 | DI.ECHO.S_ITS ---
[facility] +---------+ : : [address] : [place] : : : : [id number] : : : : Phone: [phone]+ Echocardiogram Report + + :Name: CHRISTOPHE COBOS Study Date: 07/06/2021 Height: 67 in : :[facility] ReadingLocation: Weight: 206 lb : : Gender: Male BSA: 2.0 m2 : :: 1950 Age: 70 yrs BP: 141/77 mmHg: :Reason For Study: Stroke : :Ordering Physician: CASSANDRA, : :DANIELLE Uribe Performed By: Wilian Mares : :Referring: DANIELLE TRUJILLO : + + Interpretation Summary Normal left ventricle size with ejection fraction 35 +/- 5% There is moderate global hypokinesis of the left ventricle. Grade I diastolic dysfunction. Mild aortic valve sclerosis. Mild mitral regurgitation. Mild tricuspid regurgitation. Mildly dilated aortic root and ascending aorta. Comparison is made with the echocardiogram of 03/30/2019, there has been no significant change. Procedure: A two-dimensional transthoracic echocardiogram with color flow and Doppler was performed. The study quality was technically adequate. Comparison is made with the echocardiogram of 03/30/2019. Left Ventricle: The left ventricle is normal in size and wall thickness. Left ventricular systolic function is moderately reduced. Left ventricular ejection fraction is estimated to be 35 +/- 5%. There is moderate global hypokinesis of the left ventricle. Diastolic parameters suggest a relaxation abnormality of the left ventricle, consistent with probable normal filling pressures. Right Ventricle: The right ventricle is normal in size and function. Atria: Both atria are normal in size. The atrial septum is aneurysmal. There is no Doppler evidence for an interatrial shunt. Mitral Valve: The mitral valve is normal in structure and function. There is mild mitral regurgitation. Aortic Valve: There is mild aortic valve sclerosis. There is trace aortic regurgitation. Tricuspid Valve: The tricuspid valve is normal in structure and function. There is mild tricuspid regurgitation. The right ventricular systolic pressure is estimated to be at least 26 mmHg based on an estimated right atrial pressure of 3 mm Hg. Pulmonic Valve: The pulmonic valve is normal in structure and function. There is no pulmonic valvular regurgitation. Great Vessels: The aortic root is mildly dilated. The ascending aorta is mildly enlarged. The IVC is of normal diameter and collapses greater than 50% with a sniff. This suggests a low right atrial pressure of 3 mm Hg. Pericardium/ Pleura There is no pericardial effusion. There is no pleural effusion. MMode/2D Measurements & Calculations LVIDd: 6.0 cm LVOT diam: 2.1 cm LVIDs: 5.0 cm Ao root diam: 4.0 cm FS: 16.2 % asc Aorta Diam: 4.1 cm IVSd: 1.1 cm LVPWd: 1.1 cm LV thompson. diameter/BSA (cm/m^2): 2.9 LV sys. diameter/BSA (cm/m^2): 2.4 LA A2 area: 14.3 cm2 RA long axis: 4.8 cm LA A4 area: 14.7 cm2 RA area: 15.0 cm2 LA length (vol): 4.9 cm RA vol: 39.9 ml LA vol: 36.2 ml RA : 19.5 ml/m2 LA vol index: 17.7 ml/m2 TAPSE: 1.8 cm Doppler Measurements & Calculations Ao V2 max: 115.4 cm/sec LVOT Max Ozzie: 75.6 cm/sec Ao V2 mean: 83.9 cm/sec LV V1 max P.3 mmHg Ao max P.3 mmHg LV V1 VTI: 12.9 cm Ao mean P.1 mmHg ADAM(I,D): 2.0 cm2 Ao V2 VTI: 22.5 cm ADAM(V,D): 2.3 cm2 sev ratio: 0.57 ADAM indexed to BSA (cm^2/m^2): 0.97 MV E max ozzie: 47.0 cm/sec TR max ozzie: 240.3 cm/sec MV A max ozzie: 81.5 cm/sec TR max P.1 mmHg MV E/A: 0.58 PA pr(Accel): 49.0 mmHg Med Peak E' Ozzie: 3.4 cm/sec E/E' med: 13.7 Lat Peak E' Ozzie: 3.4 cm/sec E/E' lat: 13.9 E/e' average: 13.8 MV dec time: 0.28 sec SV(LVOT): 44.7 ml Electronically signed by: Dimas Snider on Reading Physician:07/06/2021 03:20 PM
[2021-07-06 06:27] LABS: Ur Creatinine Normal (Normal); Ur Specific Gravity Normal (Normal); Urine Tetrahydrocannabinol Negative (Negative); Urine pH Normal (Normal)
[2021-07-06 06:28] LABS: UR Morphine/Opiate cutoff 300 Positive (Negative); Urine Amphetamines Negative (Negative); Urine Barbiturates Negative (Negative); Urine Benzodiazepines Negative (Negative); Urine Cocaine Negative (Negative); Urine MDMA Negative (Negative); Urine Methadone Negative (Negative); Urine Methamphetamines Negative (Negative); Urine Oxycodone Negative (Negative); Urine Phencyclidine Negative (Negative); Urine Tricyclic Antidepressant Positive (Negative)
--- NOTE | 2021-07-06 07:20 | PM.HP.1 ---
History of Present Illness History of Present Illness Date Patient Seen: 07/06/21 Time Patient Seen: 07:21 Chief complaint: loss of muscular control left side of face Narrative: 70-year-old male well known to me as I am his primary care physician. He presented to the emergency department with symptoms of left-sided facial drooping and or weakness beginning at about 23:30 on the 05 of July. Patient was evaluated in the emergency department felt to be having an acute CVA. Initial imaging workup was unremarkable. Tele stroke services were consulted and did recommend tPA but after consultation with patient patient elected to decline the tPA administration feeling as though the possible negative outcomes were worse than his current status. Patient was admitted for continued monitoring knowing the tPA could be administered if he worsened as well as further workup for possible etiology for his CVA Patient with multiple risk factors for stroke including his diabetes of course, his occasional smoking use, also he has a significant cardiomyopathy without evidence of ischemia status post implantable defibrillator placement. Patient is not on any anti-platelet therapy or blood thinners prior to this. Patient History Medical History Automatic implantable cardiac defibrillator in situ (~07/2019) Degeneration of intervertebral disc of cervical region Diabetic peripheral neuropathy (07/25/15) Essential hypertension intermediate frame tender current use of insulin (08/20/16) Mixed hyperlipidemia Nonischemic cardiomyopathy (09/09/16) Type 2 diabetes mellitus with hyperglycemia, with long-term current use of insulin Type 2 diabetes mellitus without complication Family & Social History Social History: household members none Prior Living Arrangements House lives independently Yes caregiver/support person Yes Safety & Behavioral: Feels Safe in Current Yes Environment Suicidal Ideation Description None Suicide Plan Description No Plan Tobacco & Substance use: Smoking Status Never smoker alcohol intake current alcohol intake frequency a few times a month Substance Use Type does not use Meds Home Medications and Allergies Home Medications Medication Instructions Recorded Confirmed Type carvedilol 25 mg tablet (Coreg) 25 mg PO BID #180 tab 10/12/19 06/19/21 Rx losartan 100 mg tablet (Cozaar) 100 mg PO QDAY #90 tab 10/12/19 06/19/21 Rx simvastatin 40 mg tablet (Zocor) 20 mg PO DAILY #45 tab 10/12/19 06/19/21 Rx spironolactone 25 mg tablet 25 mg PO QDAY #90 tab 10/12/19 06/19/21 Rx ivabradine 5 mg tablet 5 mg PO BID 04/12/20 06/19/21 History Glucose: Test Strips #500 each 07/28/20 06/19/21 Rx insulin NPH-regular 70-30 U-100 See Rx Instructions SUBCUT 08/30/20 06/19/21 Rx insulin 100 unit/mL subcutaneous .COMPLEX #200 ml pen (Humulin 70/30 U-100 KwikPen) tamsulosin 0.4 mg capsule 0.4 mg PO DAILY #90 cap 12/04/20 06/19/21 Rx trazodone 50 mg tablet 50 mg PO HS #90 tabs 12/04/20 06/19/21 Rx glipizide 10 mg tablet 10 mg PO BID #180 tab 01/02/21 06/19/21 Rx metformin 500 mg tablet,extended 1,000 mg PO BID #360 tab 02/05/21 06/19/21 Rx release 24 hr (Glucophage XR) magnesium oxide 400 mg (241.3 mg 400 mg PO DAILY 03/20/21 06/19/21 History magnesium) tablet gabapentin 300 mg capsule 300 mg PO BEDTIME #90 cap 04/30/21 06/19/21 Rx nortriptyline 50 mg capsule See Rx Instructions PO HS #180 cap 04/30/21 06/19/21 Rx omeprazole 20 mg capsule,delayed 20 mg PO Q DAY #90 cap 04/30/21 06/19/21 Rx release flash glucose scanning reader #1 ea 06/19/21 06/19/21 Rx (FreeStyle Tara 14 Day [place]) flash glucose sensor (FreeStyle #1 ea 06/19/21 06/19/21 Rx Tara 14 Day Sensor) Allergies Allergy/AdvReac Type Severity Reaction Status Date / Time No Known Allergies Allergy Uncoded 06/19/21 10:28 Review of Systems Constitutional Constitutional: Denies excessive sweating, Denies fever(s), Denies headache(s), Denies weakness, Denies weight gain and Denies weight loss Eyes Eyes: Denies change in vision, Denies itchy eyes, Denies loss of vision and Denies other visual disturbances ENT Ears, Nose, Mouth, and Throat: No change in voice, No dysphagia, No dizziness, No otalgia, No headache(s), No hoarseness, No lip swelling, No neck pain, No sore throat, No throat swelling and No tongue swelling Cardiovascular Cardiovascular: Denies chest pain, Denies syncope, Denies rapid heart rate, Denies irregular heart rhythm, Denies palpitations, Denies dyspnea, Denies dyspnea on exertion and Denies slow heart rate Respiratory Respiratory: Denies chest congestion, Denies cough, Denies hemoptysis, Denies dyspnea, Denies dyspnea on exertion, Denies stridor and Denies wheezing Gastrointestinal Gastrointestinal: Denies abdominal pain, Denies bloating, Denies change in bowel habits, Denies change in stool character, Denies dysphagia, Denies nausea, Denies vomiting and Denies hematemesis Genitourinary Genitourinary: Denies hematuria, Denies difficulty urinating and Denies urinary frequency Musculoskeletal Musculoskeletal: Denies abnormal gait, Denies myalgias, Denies arthralgias, Denies limited range of motion and Denies neck pain Integumentary/Breasts Skin/Breast: Denies bleeding lesions, Denies change in pigmentation, Denies changing lesions, Denies new lesions, Denies rash, Denies skin swelling, Denies sores and Denies jaundice Neurologic Neurologic: Denies abnormal gait, Denies behavioral changes, Denies confusion, Denies dizziness, Denies syncope, Denies headache(s), Denies loss of vision, Denies memory loss and Denies weakness Psychiatric Psychiatric: Denies behavioral changes, Denies change in appetite, Denies confusion, Denies difficulty concentrating, Denies auditory hallucinations, Denies memory loss, Denies mood swings and Denies suicidal ideation Endocrine Endocrine: Denies excessive sweating, Denies flushing, Denies polyuria and Denies palpitations Hematologic/Lymphatic Hematologic/Lymphatic: Denies easy bleeding, Denies easy bruising and Denies lymphadenopathy Allergic/Immunologic Allergic/Immunologic: Denies urticaria, Denies itchy eyes, Denies lip swelling, Denies throat swelling, Denies tongue swelling and Denies wheezing Exam Vital Signs (past 8 hours): - 07/06/21 01:07 07/06/21 01:27 07/06/21 01:30 Temperature 97.9 F Pulse Rate 96 H 86 85 Respiratory Rate 20 23 Blood Pressure 175/100 H 164/91 H 172/98 H Pulse Oximetry 97 97 96 07/06/21 02:55 Temperature 97.0 F L Pulse Rate 82 Respiratory Rate 16 Blood Pressure 144/82 H Pulse Oximetry 97 Oxygen Delivery Method Room Air Oxygen Flow Rate 0 Narrative Exam Narrative: Elderly male in no obvious distress lying in his hospital bed. Has obvious left facial drooping upon immediate inspection HEENT-normocephalic atraumatic PERRLA EOMs intact Neck-no lymphadenopathy no bruits Lungs-clear with good breath sounds Heart-regular rate and rhythm Abdomen-positive bowel tones Neuro-alert and oriented x3, weakness of left periorbital muscles as well as left facial drooping and slurred speech, moves all 4 extremities with 5/5 strength arms and legs bilaterally, no abnormal reflexes in his arms or legs, gait not tested Objective Labs Result Diagrams: 07/06/21 01:10 07/06/21 01:10 Labs: Laboratory Results - last 24 hr 07/06/21 07/06/21 07/06/21 01:10 01:10 01:20 WBC 6.4 RBC 4.29 L Hgb 13.5 Hct 39.5 L MCV 92.2 MCH 31.5 MCHC 34.2 RDW 14.0 Plt Count 157 Neut % (Auto) 50.3 Lymph % (Auto) 35.4 [place] % (Auto) 10.0 Eos % (Auto) 3.7 Baso % (Auto) 0.6 Neut # (Auto) 3200 Lymph # (Auto) 2300 [place] # (Auto) 600 Eos # (Auto) 200 Baso # (Auto) 0 PT 12.7 INR 1.1 Sodium 138 Potassium 4.1 Chloride 104 Carbon Dioxide 22 BUN 11 Creatinine 0.82 Estimated GFR > 60.0 BUN/Creatinine Ratio 13.4 Glucose 140 H Calcium 9.1 Total Creatine Kinase 278 H CK-MB (CK-2) 3.38 H CK-MB (CK-2) Rel Index 1.2 L Troponin I 0.031 U Opiates 300ng/mL cut Ur Oxycodone Screen Urine Methadone Screen Ur Barbiturates Screen U Tricyclic Antidepress Ur Phencyclidine Scrn Ur Amphetamines Screen U Methamphetamines Scrn Ur MDMA Scrn (Ecstasy) U Benzodiazepines Scrn Urine Cocaine Screen U Marijuana (THC) Screen 07/06/21 06:15 WBC RBC Hgb Hct MCV MCH MCHC RDW Plt Count Neut % (Auto) Lymph % (Auto) [place] % (Auto) Eos % (Auto) Baso % (Auto) Neut # (Auto) Lymph # (Auto) [place] # (Auto) Eos # (Auto) Baso # (Auto) PT INR Sodium Potassium Chloride Carbon Dioxide BUN Creatinine Estimated GFR BUN/Creatinine Ratio Glucose Calcium Total Creatine Kinase CK-MB (CK-2) CK-MB (CK-2) Rel Index Troponin I U Opiates 300ng/mL cut Positive H Ur Oxycodone Screen Negative Urine Methadone Screen Negative Ur Barbiturates Screen Negative U Tricyclic Antidepress Positive H Ur Phencyclidine Scrn Negative Ur Amphetamines Screen Negative U Methamphetamines Scrn Negative Ur MDMA Scrn (Ecstasy) Negative U Benzodiazepines Scrn Negative Urine Cocaine Screen Negative U Marijuana (THC) Screen Negative Assessment & Plan Assessment & Plan narrative: 1. Acute CVA-patient's CT angiography through the emergency department failed to show evidence of any intracranial or carotid issues. No evidence of hemorrhage on imaging either. Patient not a candidate for MRI given his implanted defibrillator. It appears patient's last echocardiogram was in 2019 will update that at this time. Also will obtain ultrasound of the carotids for confirmation of lack of disease in that location. I believe patient would benefit from anti-platelet therapy will be started on aspirin 325 mg daily. He would benefit from speech therapy and physical therapy. Unsure if he would benefit from occupational therapy at this point. At this point blood pressure is adequately although not perfectly controlled. No need for intervention for extreme hypertension as his sometime seen in the setting of a CVA. 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 Diabetes-patient takes a tremendous amount of insulin on a daily basis likely secondary to poor dietary compliance as well as his type 2 diabetes. Will go ahead and administer those doses here in the hospital careful monitoring as his diet will be better controlled here in the hospital etcetera. Will use short-acting insulin for hyperglycemia. Also continue his usual oral medications as well 3. Cardiac-continue patient's usual medications for his chronic severe nonischemic cardiomyopathy. 4. VTE prophylaxis-Lovenox has been ordered and will be employed Time Spent With Patient Critical Care time: I spent a total of [] minutes of critical care time on this patient's care today; this time is exclusive of procedural time.
[2021-07-06] MEDS: ASPIRIN EC 325 MG TABLET PO (08:31)
[2021-07-06] MEDS: ATORVASTATIN 20 MG TABLET 10 MG PO (08:31)
[2021-07-06] MEDS: carvediloL 12.5 MG TABLET 25 MG PO (08:32)
[2021-07-06] MEDS: glipiZIDE 5 MG TABLET 10 MG PO (08:33)
[2021-07-06] MEDS: ENOXAPARIN 40 MG/0.4 ML SYRINGE SUBCUT (08:33)
[2021-07-06] MEDS: PANTOPRAZOLE DR 20 MG TABLET PO (08:34)
[2021-07-06] MEDS: SPIRONOLACTONE 25 MG TABLET PO (08:34)
[2021-07-06] MEDS: TAMSULOSIN 0.4 MG CAPSULE PO (08:34)
[2021-07-06] MEDS: METFORMIN XR 500 MG TABLET 1000 MG PO (08:34)
[2021-07-06] MEDS: LOSARTAN 50 MG TABLET 100 MG PO (08:34)
[2021-07-06] MEDS: MAGNESIUM OXIDE 400 MG TABLET PO (08:34)
[2021-07-06 08:42] LABS: COVID19 -Nasal RAPID Negative (Negative)
[2021-07-06] MEDS: INSULIN NPH/REG 70-30 100 UNIT/ML 3ML VIAL 140 UNIT SUBCUT (08:49)
--- NOTE | 2021-07-06 11:35 | PT.IIE ---
Medical History (Last Reviewed 07/06/21 @ 08:17 by Salvador Guzman MD) Automatic implantable cardiac defibrillator in situ (~07/2019) Degeneration of intervertebral disc of cervical region Diabetic peripheral neuropathy (07/25/15) Essential hypertension jail current use of insulin (08/20/16) Mixed hyperlipidemia Nonischemic cardiomyopathy (09/09/16) Type 2 diabetes mellitus with hyperglycemia, with long-term current use of insulin Type 2 diabetes mellitus without complication Physical Therapy Inpatient Evaluation/Re-Eval M1 PT/OT-IP Prior Functional Status Start: 07/06/21 12:57 Freq: NEEDED Status: Active Protocol: Document 07/06/21 11:35 AB (Rec: 07/06/21 13:07 AB [email or web address]) Medical Review Prior Functional Status Medical History Reviewed Yes Communication able to make needs known Mobility and Gait pt stated that he is independent with all mobilities and ambulation without AD Social History Household Members none Living Arrangements House Number of Floors (Floors) Two Floors Number of Stairs To Enter/Railing? no steps to enter 12 steps R rail to 2nd level bedroom Home Environment Standard Height Toilet Home Equipment Crutches Additional Social History Comment pt stated that he does not have a working shower and only has a tub M2 PT-IP Current Condition Start: 07/06/21 12:57 Freq: NEEDED Status: Active Protocol: Document 07/06/21 11:35 AB (Rec: 07/06/21 13:07 AB [email or web address]) Physical Therapy Current Condition Current Condition Evaluation Date 07/06/21 Treatment Diagnosis CVA; weakness Onset Date 07/06/21 M3 PT-IP Subjective Start: 07/06/21 12:57 Freq: NEEDED Status: Active Protocol: Document 07/06/21 11:35 AB (Rec: 07/06/21 13:07 AB [email or web address]) Subjective Physical Therapy Visit Type Type Initial Evaluation Visit Start Time 11:35 Visit Stop Time 11:55 Total Visit Minutes 20 Number of MATERIALS SCHEDULER Visits 0 Physical Therapy Visit Comments Patient Comments pt is agreeable to do PT Therapy Pain Assessment Pain When Pain Assessed During Weight Bearing M4 PT-IP Mobility and Gait Start: 07/06/21 12:57 Freq: NEEDED Status: Active Protocol: Document 07/06/21 11:35 AB (Rec: 07/06/21 13:07 AB [email or web address]) PT-Bed Mobility Assessment Supine to Sit Supine to Sit Independent Sit to Supine Sit to Supine Independent PT-Transfer Assessment Sit to and From Stand Sit to and from Stand Independent Equipment Transfer Assistive Device None,Gait Belt Orthotic/Prosthetic Devices or Brace: No Transfers Transfer Destination Chair Transfer Technique ambulated without AD Transfer Ability Level of Assist Independent Gait Assessment Gait Gait Assistance Required: Standby Assistance Distance (Feet) 250 Able to Maintain Weight Bearing Status Yes During Gait Assistive Devices Assistive Device None,Gait Belt Orthotic/Prosthetic Devices or Brace: No Factors Limiting Gait Function Factors Limiting Gait Function Decreased Activity Tolerance Stair Climbing Assessment Evaluation Level of Assist On Stairs Standby Assistance Devices Stair Climbing Assistive Devices Right Railing Technique/Endurance Stair Climbing Direction Ascend and Descend Stair Climbing Technique Step Over Step Number of Steps Climbed 3 Query Text: Stair Climbing Set # Repetitions (reps) 2 PT-Balance Assessment Sitting Balance and Reactions Static Sitting Balance Ability Normal Dynamic Sitting Balance Ability Normal Standing Balance and Reactions Static Standing Balance Ability Good Dynamic Standing Balance Ability Good Device Used without AD M5 PT-IP Objective Assessments Start: 07/06/21 12:57 Freq: NEEDED Status: Active Protocol: Document 07/06/21 11:35 AB (Rec: 07/06/21 13:07 AB [id number]) Orientation Orientation/Cognition Level of Alertness Alert Orientation Name,Age,Birthday,Month,Date, Year,Day of Week,Place, Situation Language Function Ability No Deficits Noted Safety Awareness Understands Safety Issues Memory Description No Deficits Noted Gross Range of Motion Lower Extremity ROM Assessment Within Functional Limits Strength Lower Extremity Strength Assessment Within Functional Limits Sensation Assessment Comments Sensation Comments stated weakness on L side of face M6 PT-IP Treatment Start: 07/06/21 12:57 Freq: NEEDED Status: Active Protocol: Document 07/06/21 11:35 AB (Rec: 07/06/21 13:07 AB [id number]) Physical Therapy Treatment Education Education Provided Safety M7 PT-IP Assessment and Plan Start: 07/06/21 12:57 Freq: NEEDED Status: Active Protocol: Document 07/06/21 11:35 AB (Rec: 07/06/21 13:07 AB [email or web address]) PT Summary Assessment and Plan Potential Rehabilitation Potential Good Status of Condition at Evaluation Stable Summary Progress Towards Goals Safe For Discharge Assessment Summary PT eval completed and pt is independent with bed mobiity and transfers without AD. SBA provided for long distance ambulation without AD for safety during assessment but pt has no LOB. pt is at PLOF and no further PT intervention indicated at this time. 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 Frequency of Treatment Frequency Of Treatment Discharge Recommendations To Nursing Amount of Assist Needed Independent,Standby Assistance Discharge Recommendations PT Discharge Recommendations Home,Outpatient PT Transportation Needs at Discharge Private Vehicle
--- NOTE | 2021-07-06 12:29 | ST.IPIE ---
Visit Care Team Role Provider Type Khanh Ng DO Emergency Provider Physician Referring Provider Specialty: Emergency Medicine Address: [address] [place] [address], [address] Email: [email or web address] Salvador Guzman MD Admit Provider Physician Attending Provider Primary Care Provider Specialty: Internal Medicine Address: [address] [place] [address], [address], [place], [address] Email: [email or web address] Past Medical History (Last Reviewed 07/06/21 @ 08:17 by Salvador Guzman MD) Automatic implantable cardiac defibrillator in situ (Medical ~07/2019) Jul 19 2019 Degeneration of intervertebral disc of cervical region (Medical) Diabetic peripheral neuropathy (Medical 07/25/15) Essential hypertension (Medical) 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 Guzman Reason for Referral Loss of musculature following CVA. Setting Assessment Location Acute Care Visit Type Note Type Initial evaluation Patient Information Identification Type Name,Wristband History Per medical chart, Randolph is a 70 year old male who presented to the emergency department with symptoms of left-sided facial drooping and or weakness beginning at about 23 :30 on the 05 of July. He was evaluated in the emergency department felt to be having an acute CVA. Initial imaging workup was unremarkable. Tele stroke services were consulted and did recommend tPA but after consultation with patient, patient elected to decline the tPA administration feeling as though the possible negative outcomes were worse than his current status. Randolph presents with multiple risk factors for stroke including his diabetes, his occasional smoking use, and he has a significant cardiomyopathy without evidence of ischemia status post implantable defibrillator placement. Patient is not on any anti- platelet therapy or blood thinners prior to this. Subjective Observations Randolph was awake, alert, cooperative, and finishing breakfast when the clinician arrived. His nurse administered insulin after he finished breakfast. Reported by Patient Comment Randolph reported no difficulty with swallowing and some difficulty with chewing food as he left his partials at home and is currently missing many teeth. Current Diet Regular Baseline Feeding Method Independent in self-feeding Objective Assessment Mental Status Alert,Responsive,Cooperative Oral Integrity WFL Dentition Missing teeth,Upper dentures/ partials,Lower dentures/ partials Lip Function Mild impairment Observation of Lips at Rest Left sided weakness/Drooping Pucker Left sided weakness/drooping Lip Retraction Left sided weakness/Drooping Alternating Pucker/Lip Retraction Within normal limits Tongue Function Within normal limits Observations of Tongue at Rest Within normal limits Tongue Protrusion Within normal limits Tongue Lateralization Within normal limits Jaw Function Within normal limits Observations of Jaw at Rest Within normal limits Jaw Opening Within normal limits Jaw Closing Within normal limits Hard/Soft Palate Function Within normal limits Observations of Hard/Soft Palate Within normal limits Nasality Within normal limits Respiratory Sufficiency Within normal limits Comment Completed oral mechanism exam. Randolph presents with left facial weakness and a mild droop at rest. Left weakness also observed during lip retraction and pucker. Rapid and coordinated movement between lip retraction and pucker despite left weakness. Left weakness does not appear to impact feeding, swallowing, or speech. Missing dentition on top and bottom noted. Randolph stated his partials are at home, which makes it difficult to chew and may impact his speech. Other oral structures and functions appear within normal limits. Food and Liquid Trials Position During Assessment Slightly reclined,In bed Liquids Trialed Thin Solids Trialed Regular Administration Type Straw,Self-feeding Oral Impairment Within functional limits Oral Phase Comments Observed 4 trials with thin liquid (water, coffee) through straw and eating 2 slices of orange from breakfast. Prolonged mastication likely due to missing dentition. No oral residue or anterior loss of bolus. Pharyngeal Impairment Within normal limits Pharyngeal Phase Comments Hyolaryngeal elevation and excursion were timely and WNL. No overt signs/symptoms of aspiration noted and Randolph reported no difficulty while eating breakfast. Fatigue/Endurance Endurance WNL Comment No fatigue noted despite observation taking place after he finished breakfast. Findings Swallowing Function Within functional limits Severity of Swallow Impairment Within functional limits Contributing Factors to Swallow Mastication inefficiency Impairment Comments Mastication inefficiency due to missing partials. Prognosis Good Comment Patient presents with swallow function within normal limits. Speech therapy is not indicated at this time. Impact on Safety and Functioning No limitations Recommendations Instrumental Assessment No Swallowing Treatment No Recommended Solids Regular Recommended Liquids Thin Medication Recommendations As Tolerated Discharge Recommendations Home Education Patient/Caregiver Education Described results of evaluation,Patient expressed understanding of evaluation, Patient expressed agreement with goals & treatment plans, Patient expressed understanding of feeding recommendations
--- NOTE | 2021-07-06 13:51 | PC.NURSE ---
Patient A/O x 3, VSS, denies chest pain, SOB, numbness or tingling in extremities or weakness bilaterally. L facial droop still apparent, patient feels the L eye is improving. Tele on. Refusing SCD's. Up with SBA, denies dizziness. Tolerating diet. Voiding, BS active x 4, reports last BM 07/04. Saline locked in the R AC. ECHO completed bedside. Denies further needs at this time. Call light in reach.
--- NOTE | 2021-07-06 15:38 | CM.IDA ---
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 Patient lives at home , alone, states his brother Roscoe is his primary contact. Patient has neighbors he can call on as needed, but has been indp. and active at baseline and expects no needs from this COTTON DISPATCHER before DC. PT completed assessment and home w/outpatient PT is recommended. No needs expected from DC planning team although will remain available in case this changes before DC. ANGELIQUE Gallagher Discharge Planning/Care Management CM Discharge Assessment Start: 07/06/21 15:36 Freq: Status: Active Protocol: Document 07/06/21 15:36 NAIF (Rec: 07/06/21 15:38 NAIF [id number]) Discharge Planning Assessment Assigned Partner Manager ANGELIQUE Castaneda DPOA/Assigned Designee Name brother Gary Contact Information [phone] Advance Directives? No History Provided By Patient,Medical Record Prior Living Arrangements House Household Members none Type of transporation used prior to Drives own vehicle admit Independent with ADL's Yes Is patient alert and oriented? Yes Barriers to Discharge No Discharge Plan Home Transportation Arrangement Friend Referrals Initiated None needed
[2021-07-06] MEDS: ACETAMINOPHEN 325 MG TABLET 650 MG PO (15:40)
== END 2021-07-06 17:08 | disposition home or self-care (01) ==
LOC: ED 01:58 → AC 02:05
PROVIDERS: Admitting Provider Internal Medicine; Emergency Provider Emergency Medicine; PCP Internal Medicine; Referring Provider Emergency Medicine; Visit Provider Internal Medicine
DX: I63.9 Cerebral infarction, unspecified (principal); R20.0 Anesthesia of skin; R47.81 Slurred speech; R29.810 Facial weakness; R29.703 NIHSS score 3; E11.9 Type 2 diabetes mellitus without complications; Z79.4 Long term (current) use of insulin; I10 Essential (primary) hypertension; E78.5 Hyperlipidemia, unspecified; K21.9 Gastro-esophageal reflux disease without esophagitis; Z95.0 Presence of cardiac pacemaker; I42.8 Other cardiomyopathies; Z20.822 Contact with and (suspected) exposure to COVID-19
CPT/HCPCS: 36415; 36592; 70450; 70496; 70498; 80048; 80305; 82550; 82553; 82962; 84484; 85025; 85610; 87635; 92610; 93005; 93306; 96372; 97161; 99235; 99285; C9803; G0378; Q3014; J1650; J1815; Q9967

== ENCOUNTER 2021-07-30 00:21 | Observation (INO) | payer MEDICARE, SELFPAY ==
[2021-07-06 02:55] VITALS: BMI 32.2
[2021-07-30] VITALS (33 sets, daily range): BP systolic 117–223; BP diastolic 56–117; PULSE 66–123; RESP 13–36; TEMP 35.6–36.9; O2SAT 91–99; BMI 31.9
--- NOTE | 2021-07-30 00:33 | DI.RAD.S_ITS ---
PROCEDURE: XR CHEST 1V INDICATIONS: cough, sob TECHNIQUE: One view of the chest was acquired. COMPARISON: [facility], , CHEST 2 VIEW, 09/09/2016, 17:08. FINDINGS: Surgical changes and devices: Left-sided single lead pacemaker/defibrillator present. Lungs and pleura: Left basilar atelectasis and or infiltrate noted. Low lung volumes accentuate pulmonary interstitium and heart size. Mediastinum: Mediastinal contours appear normal. Heart size is normal. Atherosclerotic vascular calcification noted in the aortic arch. Bones and chest wall: No suspicious bony lesions. Overlying soft tissues appear unremarkable. IMPRESSION: Left basilar atelectasis and infiltrate accentuated by low lung volumes. Left-sided pacemaker/defibrillator without pneumothorax and Aortic atherosclerosis Approved by: Tae Flores M.D. on 07/30/2021 at 0:44
--- NOTE | 2021-07-30 00:35 | ED.SOB ---
HPI - SOB/Dyspnea General Chief Complaint: Shortness of Breath/Dyspnea Stated Complaint: fatigue chest congestion cough headache Time Seen by Provider: 07/30/21 00:25 Source: patient and old records reviewed Mode of arrival: Ambulatory Limitations: no limitations History of Present Illness HPI Narrative: This is a 70-year-old male comes emergency department complaint of feeling fatigued, under the weather as well as having a cough, some mild shortness of breath and chest congestion. Patient has had headache he states for a month with some left side of neck discomfort. He states that the left-sided headache and neck discomfort from a prior stroke or Easley's palsy he is unclear which. And that this has not changed or been new. He is unsure if he has had fevers but believes he may have. He has had some sweaty episodes. He has had some nausea but no vomiting he has had some abdominal discomfort but it states that he has been taking a lot of ibuprofen. He denies any changes to stools. No diarrhea, no black or bloody stools or constipation. No urinary dysuria urgency or frequency. He is not appreciate any swelling in his extremities. Patient states he is up-to-date on his COVID vaccinations. He does have a history of cardiomyopathy with an ICD in place, diabetes, hypertension and dyslipidemia. Patient is on aspirin 325 mg daily. He denies any known long history. He does not use inhalers. No tobacco, occasional alcohol, no illicit. He follows with Dr. 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 On the 06 of July for possible stroke and was admitted. Easley's palsy was in the differential but suspicion was stronger for stroke. Related Data Home Medications Medication Instructions Recorded Confirmed magnesium oxide 400 mg (241.3 mg 400 mg PO DAILY 03/20/21 07/19/21 magnesium) tablet Previous Rx's Medication Instructions Recorded carvedilol 25 mg tablet (Coreg) 25 mg PO BID #180 tab 10/12/19 losartan 100 mg tablet (Cozaar) 100 mg PO QDAY #90 tab 10/12/19 simvastatin 40 mg tablet (Zocor) 20 mg PO DAILY #45 tab 10/12/19 spironolactone 25 mg tablet 25 mg PO QDAY #90 tab 10/12/19 Glucose: Test Strips #500 each 07/28/20 insulin NPH-regular 70-30 U-100 See Rx Instructions SUBCUT 08/30/20 insulin 100 unit/mL subcutaneous .COMPLEX #200 ml pen (Humulin 70/30 U-100 KwikPen) tamsulosin 0.4 mg capsule 0.4 mg PO DAILY #90 cap 12/04/20 trazodone 50 mg tablet 50 mg PO HS #90 tabs 12/04/20 glipizide 10 mg tablet 10 mg PO BID #180 tab 01/02/21 metformin 500 mg tablet,extended 1,000 mg PO BID #360 tab 02/05/21 release 24 hr (Glucophage XR) gabapentin 300 mg capsule 300 mg PO BEDTIME #90 cap 04/30/21 nortriptyline 50 mg capsule See Rx Instructions PO HS #180 cap 04/30/21 omeprazole 20 mg capsule,delayed 20 mg PO Q DAY #90 cap 04/30/21 release flash glucose scanning reader #1 ea 06/19/21 (FreeStyle [place] 14 Day [place]) flash glucose sensor (FreeStyle #1 ea 06/19/21 Tara 14 Day Sensor) aspirin 325 mg tablet,delayed 325 mg PO DAILY #250 tab 07/06/21 release oxycodone 5 mg tablet 5 mg PO Q6H PRN #14 tab 07/16/21 Allergies Allergy/AdvReac Type Severity Reaction Status Date / Time No Known Drug Allergies Allergy Verified 07/19/21 10:18 Review of Systems Review of Systems ROS Unobtainable: All systems reviewed & are unremarkable except as noted in HPI and below Patient History Medical History Automatic implantable cardiac defibrillator in situ (~07/2019) Degeneration of intervertebral disc of cervical region Diabetic peripheral neuropathy (07/25/15) 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/holiness: Jainism travel history: recent leisure activities: music, reading and other (Hiking.) Smoking Status: Never smoker quit status: quit date established second hand exposure: No alcohol intake: current substance use type: does not use Smoking Status: Never smoker alcohol intake frequency: a few times a month Substance Use Type: does not use Exam Narrative Exam Narrative: GEN: chronically ill appearing male, alert and oriented x 3, patient appears to be in to mild distress. Patient is diaphoretic. HEENT: Atraumatic, pupils are equal round reactive to light, extraocular movements are intact, nares are clear, TMs are clear with no fluid, there is no conjunctival pallor. Throat is clear without any exudates, erythema, tonsillar enlargement or uvular deviation, normal speech. HEART: Slightly tachycardic but Regular rhythm without murmur, clicks, rubs. Pulses are equal in upper and lower extremities. No JVD. LUNGS:Lungs clear to auscultation, no wheezes, rales, crackles, chest moves symmetrically, mild tachypnea. Full speech. Dry cough intermittently. ABD:bowel sounds normal, soft, non-tender, no guarding, rebound, rigidity, no masses noted, no hepatosplenomegaly :No CVA tenderness MSCL: Non-tender, no muscle atrophy, muscles strength 5/5 upper and lower extremities, full range of motion, normal gait NEURO:CN 2-12 intact, sensation normal SKIN: Rash, erythema or skin changes noted. Initial Vital Signs Initial Vital Signs: Vital Signs Temperature 98.5 F 07/30/21 00:33 Pulse Rate 114 H 07/30/21 00:33 Respiratory Rate 26 H 07/30/21 00:33 Blood Pressure 223/117 H 07/30/21 00:33 Pulse Oximetry 98 07/30/21 00:33 Course Orders Ordered: ED Orders 07/30/21 00:33 XR chest 1V Stat EKG-12 Lead Stat 07/30/21 00:35 COVID19 -Nasal swab/Pre-Proc Stat 07/30/21 00:40 Complete Blood Count AUTO DIFF Stat Comprehensive Metabolic Panel Stat Lactate (Lactic Acid) Stat Lipase Stat NT-proBNP (BNP-Adult 18+) Stat Procalcitonin Stat Troponin & CK Cardiac Panel Stat 07/30/21 00:45 CT head/brain wo con Stat 07/30/21 01:00 Blood Culture Stat 07/30/21 01:23 CT angio chest PE protocol Stat 07/30/21 02:45 Troponin I Stat 07/30/21 02:50 Urine Culture Stat Urine Microscopic Stat 07/30/21 03:29 RT Consult Eval and Treat NOW Acetaminophen (Acetaminophen 325 Mg Tablet) 650 mg PO Q6HR PRN PRN Reason: Fever/Mild Pain (1-3) Dextrose (Dextrose 50 % In Water 25 Gm/50 Ml Syringe) 25 gm IV PRN PRN PRN Reason: Hypoglycemia Sodium Chloride (Normal Saline 0.9%) 1,000 mls @ 150 mls/hr IV CONT REINA Last Admin: 07/30/21 04:45 Dose: 150 mls/hr Documented by: Infusion: 07/30/21 04:05 Dose: 0 mls/hr Documented by: Admin: 07/30/21 00:58 Dose: 150 mls/hr Documented by: VIANNEY Insulin Human Lispro (Insulin Lispro 100 Unit/Ml 3ml Vial) 0 unit SUBCUT ACHS REINA; Protocol Nitroglycerin (Nitroglycerin 0.4 Mg Sl Tab) 0.4 mg SL [id number] PRN PRN Reason: Chest Pain Last Admin: 07/30/21 00:58 Dose: 0.4 mg Documented by: VIANNEY Ondansetron HCl (Ondansetron 4 Mg/2 Ml Inj) 4 mg IV Q4HR PRN PRN Reason: Nausea And Vomiting Discontinued Medications Albuterol (Albuterol 2.5 Mg/3 Ml Neb (Adult)) 2.5 mg INH NOW ONE Stop: 07/30/21 03:54 Last Admin: 07/30/21 03:58 Dose: 2.5 mg Documented by: PRANAV Aspirin (Aspirin 81 Mg Chew Tab) 324 mg PO NOW ONE Stop: 07/30/21 00:33 Last Admin: 07/30/21 00:58 Dose: 324 mg Documented by: VIANNEY Sodium Chloride (Normal Saline 0.9%) 1,000 mls @ 1,000 mls/hr IV BOLUS ONE Stop: 07/30/21 02:22 Last Admin: 07/30/21 04:05 Dose: Not Given Documented by: VIANNEY Metoprolol Tartrate (Metoprolol Tartrate 5 Mg/5 Ml Inj) 5 mg IV Q5M REINA Stop: 07/30/21 01:41 Last Admin: 07/30/21 04:32 Dose: Not Given Documented by: Admin: 07/30/21 04:32 Dose: Not Given Documented by: Admin: 07/30/21 04:32 Dose: Not Given Documented by: VIANNEY Reevaluation(s) Reevaluation #1: Patient felt better after nitro SL. He appears more comfortable. Time: 01:30 Reevaluation #2: Patient continues to have cough. On recheck he is not wheezy but attempted albuterol neb. patient does feel better than when he arrived but still feels somewhat unwell. After discussion his imaging and labs have improved as well as his hypertension but he still looks generally unwell and plan for observation. Time: 03:32 Consultations Consultation #1: Dr. Khalil, accepts for observation for Dr. Guzman. Plan for bridging orders. Vital Signs Vital signs: Vital Signs - 8 hr 07/30/21 00:33 07/30/21 00:48 07/30/21 01:00 Temperature 98.5 F Pulse Rate 114 H 104 H 111 H Respiratory Rate 26 H Blood Pressure 223/117 H Pulse Oximetry 98 96 96 07/30/21 01:03 07/30/21 01:06 07/30/21 01:10 Temperature Pulse Rate 123 H 123 H 119 H Respiratory Rate 24 Blood Pressure 139/77 150/84 H 166/77 H Pulse Oximetry 92 93 92 07/30/21 01:16 07/30/21 01:20 07/30/21 01:25 Temperature Pulse Rate 108 H 107 H 104 H Respiratory Rate 20 36 H Blood Pressure 180/89 H 182/89 H 169/85 H Pulse Oximetry 93 92 92 07/30/21 01:30 07/30/21 01:36 07/30/21 01:40 Temperature Pulse Rate 106 H 105 H 106 H Respiratory Rate Blood Pressure 175/84 H 164/92 H 190/91 H Pulse Oximetry 93 93 95 07/30/21 01:45 07/30/21 01:58 07/30/21 02:00 Temperature Pulse Rate 100 H 99 H 100 H Respiratory Rate Blood Pressure 117/56 L 183/90 H Pulse Oximetry 95 95 94 07/30/21 02:06 07/30/21 02:30 07/30/21 03:00 Temperature Pulse Rate 100 H 94 H 99 H Respiratory Rate 20 27 H Blood Pressure 171/91 H 178/89 H 189/91 H Pulse Oximetry 95 91 95 MDM - SOB/Dyspnea Lab Data Result diagrams: 07/30/21 00:40 07/30/21 00:40 Labs: Lab Results 07/30/21 07/30/21 07/30/21 Range/Units 00:35 00:40 00:40 WBC (4.5-11.0) X10^3/uL RBC (4.5-5.9) X10^6/uL Hgb (13.5-17.5) g/dL Hct (41-53) % MCV (80-100) fL MCH (26-34) PG MCHC (30-36) % RDW (11.6-14.8) % Plt Count (150-400) X10^3/uL Neut % (Auto) (50-75) % Lymph % (Auto) (25-40) % Barber % (Auto) (3-14) % Eos % (Auto) (2-4) % Baso % (Auto) (0-2) % Neut # (Auto) (7521-9931) /uL Lymph # (Auto) (0026-1055) /uL Barber # (Auto) (0-900) /uL Eos # (Auto) (0-450) /uL Baso # (Auto) (0-100) /uL Sodium (137-145) mmol/L Potassium (3.4-5.1) mmol/L Chloride (98-107) mmol/L Carbon Dioxide (22-32) mmol/L BUN (9-20) mg/dL Creatinine (0.66-1.25) mg/dL Estimated GFR (>60) mL/min BUN/Creatinine Ratio (6-22) Glucose (80-110) mg/dL Lactate 3.3 H (0.7-2.1) mmol/L Calcium (8.4-10.2) mg/dL Total Bilirubin (0.2-1.3) mg/dL AST (17-59) IU/L ALT (<50) IU/L Alkaline Phosphatase (38-126) U/L Total Creatine Kinase (55-170) U/L CK-MB (CK-2) (<2.37) ng/mL CK-MB (CK-2) Rel Index (1.5-5.0) % Troponin I (0.01-0.034) ng/mL NT-Pro-B Natriuret Pep 323 H (<125) pg/mL Total Protein (6.3-8.2) g/dL Albumin (3.5-5.0) g/dL Globulin (1.7-4.1) g/dL Albumin/Globulin Ratio (1.0-2.8) Lipase (23-300) U/L Procalcitonin 0.15 (<0.5) ng/mL Urine RBC (0-5/HPF) Urine WBC (0-5/HPF) Ur Squamous Epith Cells (0-5/HPF) Urine Bacteria (None) Ur Culture Indicated? SARS-CoV-2 (PCR) Negative (Negative) 07/30/21 07/30/21 07/30/21 Range/Units 00:40 00:40 02:45 WBC 7.2 (4.5-11.0) X10^3/uL RBC 4.29 L (4.5-5.9) X10^6/uL Hgb 13.3 L (13.5-17.5) g/dL Hct 39.5 L (41-53) % MCV 92.1 (80-100) fL MCH 31.1 (26-34) PG MCHC 33.7 (30-36) % RDW 13.8 (11.6-14.8) % Plt Count 146 L (150-400) X10^3/uL Neut % (Auto) 68.7 (50-75) % Lymph % (Auto) 20.1 L (25-40) % Barber % (Auto) 9.1 (3-14) % Eos % (Auto) 1.6 L (2-4) % Baso % (Auto) 0.5 (0-2) % Neut # (Auto) 4900 (9398-1476) /uL Lymph # (Auto) 1400 (4250-9818) /uL Barber # (Auto) 700 (0-900) /uL Eos # (Auto) 100 (0-450) /uL Baso # (Auto) 0 (0-100) /uL Sodium 135 L (137-145) mmol/L Potassium 3.7 (3.4-5.1) mmol/L Chloride 99 (98-107) mmol/L Carbon Dioxide 22 (22-32) mmol/L BUN 10 (9-20) mg/dL Creatinine 0.85 (0.66-1.25) mg/dL Estimated GFR > 60.0 (>60) mL/min BUN/Creatinine Ratio 11.8 (6-22) Glucose 298 H (80-110) mg/dL Lactate (0.7-2.1) mmol/L Calcium 9.6 (8.4-10.2) mg/dL Total Bilirubin 0.5 (0.2-1.3) mg/dL AST 34 (17-59) IU/L ALT 34 (<50) IU/L Alkaline Phosphatase 82 (38-126) U/L Total Creatine Kinase 303 H (55-170) U/L CK-MB (CK-2) 5.02 H (<2.37) ng/mL CK-MB (CK-2) Rel Index 1.7 (1.5-5.0) % Troponin I 0.030 0.031 (0.01-0.034) ng/mL NT-Pro-B Natriuret Pep (<125) pg/mL Total Protein 7.7 (6.3-8.2) g/dL Albumin 4.6 (3.5-5.0) g/dL Globulin 3.1 (1.7-4.1) g/dL Albumin/Globulin Ratio 1.5 (1.0-2.8) Lipase 393 H (23-300) U/L Procalcitonin (<0.5) ng/mL Urine RBC (0-5/HPF) Urine WBC (0-5/HPF) Ur Squamous Epith Cells (0-5/HPF) Urine Bacteria (None) Ur Culture Indicated? SARS-CoV-2 (PCR) (Negative) 07/30/21 07/30/21 Range/Units 02:48 02:50 WBC (4.5-11.0) X10^3/uL RBC (4.5-5.9) X10^6/uL Hgb (13.5-17.5) g/dL Hct (41-53) % MCV (80-100) fL MCH (26-34) PG MCHC (30-36) % RDW (11.6-14.8) % Plt Count (150-400) X10^3/uL Neut % (Auto) (50-75) % Lymph % (Auto) (25-40) % Barber % (Auto) (3-14) % Eos % (Auto) (2-4) % Baso % (Auto) (0-2) % Neut # (Auto) (3287-5033) /uL Lymph # (Auto) (7879-6990) /uL Barber # (Auto) (0-900) /uL Eos # (Auto) (0-450) /uL Baso # (Auto) (0-100) /uL Sodium (137-145) mmol/L Potassium (3.4-5.1) mmol/L Chloride (98-107) mmol/L Carbon Dioxide (22-32) mmol/L BUN (9-20) mg/dL Creatinine (0.66-1.25) mg/dL Estimated GFR (>60) mL/min BUN/Creatinine Ratio (6-22) Glucose (80-110) mg/dL Lactate 1.7 (0.7-2.1) mmol/L Calcium (8.4-10.2) mg/dL Total Bilirubin (0.2-1.3) mg/dL AST (17-59) IU/L ALT (<50) IU/L Alkaline Phosphatase (38-126) U/L Total Creatine Kinase (55-170) U/L CK-MB (CK-2) (<2.37) ng/mL CK-MB (CK-2) Rel Index (1.5-5.0) % Troponin I (0.01-0.034) ng/mL NT-Pro-B Natriuret Pep (<125) pg/mL Total Protein (6.3-8.2) g/dL Albumin (3.5-5.0) g/dL Globulin (1.7-4.1) g/dL Albumin/Globulin Ratio (1.0-2.8) Lipase (23-300) U/L Procalcitonin (<0.5) ng/mL Urine RBC None seen (0-5/HPF) Urine WBC None seen (0-5/HPF) Ur Squamous Epith Cells 1-5 /hpf (0-5/HPF) Urine Bacteria Few (2-10) H (None) Ur Culture Indicated? Culture not indicate SARS-CoV-2 (PCR) (Negative) Point of Care Testing Glucose POC 298 Urine Dip Bedside Urine Glucose 1000 mg/dl Bedside Urine Bilirubin - Negative Bedside Urine Ketone + 15 Urine Specific [place] 1.020 Bedside Urine Occult Blood ++ Bedside Urine pH 6.0 Bedside Urine Protein +++ 300 Bedside Urine Urobilinogen - Negative Bedside Urine Nitrite - Negative Bedside Urine Leukocytes - Negative Esterase Imaging Data Chest x-ray: Radiologist's Impression: [address] [address] XRay Report Signed Patient: Randolph Cisneros MR#: [id number] : 1950 Acct:[id number] Age/Sex: 70 / M Date of Service: 07/30/21 Loc: ED Accession Number: [id number] ?? Procedure: XR chest 1V Ordering Provider: Leela Lan D.O. PROCEDURE:? XR CHEST 1V ? INDICATIONS:? cough, sob ? TECHNIQUE:? One view of the chest was acquired.? ? COMPARISON:? [facility], , CHEST 2 VIEW, 09/09/2016, 17:08. ? FINDINGS:? ? Surgical changes and devices:? Left-sided single lead pacemaker/defibrillator present. ? Lungs and pleura:? Left basilar atelectasis and or infiltrate noted.? Low lung volumes accentuate pulmonary interstitium and heart size. ? Mediastinum:? Mediastinal contours appear normal.? Heart size is normal.? Atherosclerotic vascular calcification noted in the aortic arch. ? Bones and chest wall:? No suspicious bony lesions.? Overlying soft tissues appear unremarkable.? ? IMPRESSION:? ? Left basilar atelectasis and infiltrate accentuated by low lung volumes. Left-sided pacemaker/defibrillator without pneumothorax and Aortic atherosclerosis ? ? Approved by: Tae Flores M.D. on 07/30/2021 at 0:44? CT scan - chest: Radiologist's Impression: Launch?Image [address] [address] [address] Scan Report Signed Patient: Randolph Cisneros MR#: [id number] : 1950 Acct:[id number] Age/Sex: 70 / M Date of Service: 07/30/21 Loc: ED Accession Number: [id number] ?? Procedure: CT angio chest PE protocol Ordering Provider: Leela Lan D.O. PROCEDURE:? CT ANGIO CHEST PE PROTOCOL ? INDICATIONS:? chest pain, tachycardia ? TECHNIQUE:? After the administration of intravenous contrast, 2 mm thick sections acquired from the pulmonary apices to the posterior costophrenic angles.? For radiation dose reduction, the following was used:? automated exposure control, adjustment of mA and/or kV according to patient size.? ? COMPARISON:? [facility], CT, CT KIDNEY URETER BLADDER (KUB), 10/20/2020, 12:22.? [facility], CT, CT ANGIO HEAD AND NECK, 07/06/2021, 1:12.? [facility], CT, CT ANGIO HEAD AND NECK, 09/22/2019, 13:06. ? FINDINGS:? Image quality:? Excellent.? ? Pulmonary arteries:? Pulmonary arteries are normal in size, and demonstrate no intraluminal filling defects to suggest central pulmonary embolism.? ? Lungs and pleura:? Lungs are clear.? No pleural effusions or pneumothorax.? Central and peripheral airways are patent.? ? Mediastinum:? Heart size is normal, without pericardial effusion.? No mediastinal or hilar adenopathy.? Thoracic aorta is normal in caliber and enhancement.? Ring distal esophageal wall thickening and moderate hiatal hernia noted. ? Bones and chest wall:? No suspicious bony lesions.? Ribs and thoracic spine appear intact throughout.? Thyroid gland unremarkable as visualized.? No axillary or supraclavicular adenopathy.? ? Abdomen:? Unremarkable ? IMPRESSION:? ? 1. No evidence of pulmonary embolism, aortic dissection or aneurysm. ? 2. Moderate hiatal hernia with evidence of wall thickening of the hernia sac as well as distal esophagus consistent with esophagitis/gastritis ? Approved by: Tae Flores M.D. on 07/30/2021 at 1:09? CT scan - head: Radiologist's Impression: [address] [address] [address] Scan Report Signed Patient: Randolph Cisneros MR#: [id number] : 1950 Acct:[id number] Age/Sex: 70 / M Date of Service: 07/30/21 Loc: ED Accession Number: [id number] ?? Procedure: CT head/brain wo con Ordering Provider: Leela Lan D.O. PROCEDURE:? CT HEAD/BRAIN WO CON ? INDICATIONS:? headache, ? stroke 3 weeks ago, hypertension ? TECHNIQUE:? Noncontrast 4.5 mm thick angled axial sections acquired from the foramen magnum to the vertex, with coronal and sagittal reformats.? For radiation dose reduction, the following was used:? automated exposure control, adjustment of mA and/or kV according to patient size.? ? COMPARISON:? None. ? FINDINGS: ? Cerebrum, Cerebellum and Brainstem:? Moderate cerebral and cerebellar volume loss as well as moderate multifocal hypoattenuation in the deep and subcortical white matter present.? No acute hemorrhage or mass effect.? Lazcano-white distinction is preserved throughout the exam.? Basal cisterns and foramen magnum are clear. ? Ventricles:? Appropriate in size and position given the amount of cerebral atrophy.? No evidence of hydrocephalus. ? Skull Base:? The bony sella, pituitary gland and infundibulum are unremarkable.? Clivus and craniovertebral relationships are appropriate.? Visualized portions of external auditory canals and tympanic cavities are within normal limits. ? Calvarium and Scalp:? No scalp soft tissue swelling.? The underlying calvarium is intact without skull fracture or lytic lesion. ? Paranasal Sinuses:? Unremarkable as visualized.? No mucosal thickening or retention cyst noted. ? Mastoids:? Unremarkable as visualized.? No mastoid effusion present. ? Other:? Atherosclerotic calcification in the cavernous portions of the distal internal carotid and dense calcification intradural vertebral arteries are noted.? Bilateral intraocular lens replacements noted. ? IMPRESSION:? Moderate atrophy and multifocal white matter chronic ischemic change without acute hemorrhage or mass effect. ? ? ? Approved by: Tae Flores M.D. on 07/30/2021 at 1:02? ECG Data Attestation: I personally reviewed and interpreted this ECG as follows: Prior ECG tracings: available for review Interpretation: Determined rhythm, rate of 109 OH 176 QRS of 104 and QTC of 500. Likes axis deviation. Patient has prior EKG from 07/06/2021 with no acute EKG changes today. [facility] Narrative Medical decision making narrative: Is a 70-year-old male with complaint of cough chest congestion fatigue and headache that states he has just not been improving. Patient was quite hypertensive when he arrived. He had some improvement with nitro sublingual but did not resolve. Troponin x2 is negative, no acute EKG changes, BNP is only very mildly elevated. Chest x-ray shows possible atelectasis, CT of head and chest do not show any acute changes. Patient has chronic baseline anemia, platelets appear to be chronically low intermittently and he does not have a leukocytosis. Procalcitonin is negative. Blood cultures are pending. 3.3 and has normalized here in the department to 1.7 with minimal fluids. He does have slightly elevated glucose, ketones in his urine but CO2 is 22 but anion gap does calculated 14. Patient's lipase is slightly elevated at 393. Patient initial rapid COVID swab was negative. He hyper intention has improved in the seem to somewhat improve his symptoms but he does still have a significant cough. But does sound clear on exam. Patient was given 1 breathing treatment in the department and discussion with hospitalist about observing. Bridging orders were written for. Respiratory panel was sent as this will include PCR COVID for admission as well checking for other possible viral upper respiratory causes. Discharge Plan Departure Patient Disposition: Admitted as Observation Clinical Impression: Hypertensive urgency, Dyspnea, Cough Admit Date/Time: 07/30/21 03:32 Admit Provider: Sourav Khalil
--- NOTE | 2021-07-30 00:45 | DI.CT.S_ITS ---
PROCEDURE: CT HEAD/BRAIN WO CON INDICATIONS: headache, ? stroke 3 weeks ago, hypertension TECHNIQUE: Noncontrast 4.5 mm thick angled axial sections acquired from the foramen magnum to the vertex, with coronal and sagittal reformats. For radiation dose reduction, the following was used: automated exposure control, adjustment of mA and/or kV according to patient size. COMPARISON: None. FINDINGS: Cerebrum, Cerebellum and Brainstem: Moderate cerebral and cerebellar volume loss as well as moderate multifocal hypoattenuation in the deep and subcortical white matter present. No acute hemorrhage or mass effect. Lazcano-white distinction is preserved throughout the exam. Basal cisterns and foramen magnum are clear. Ventricles: Appropriate in size and position given the amount of cerebral atrophy. No evidence of hydrocephalus. Skull Base: The bony sella, pituitary gland and infundibulum are unremarkable. Clivus and craniovertebral relationships are appropriate. Visualized portions of external auditory canals and tympanic cavities are within normal limits. Calvarium and Scalp: No scalp soft tissue swelling. The underlying calvarium is intact without skull fracture or lytic lesion. Paranasal Sinuses: Unremarkable as visualized. No mucosal thickening or retention cyst noted. Mastoids: Unremarkable as visualized. No mastoid effusion present. Other: Atherosclerotic calcification in the cavernous portions of the distal internal carotid and dense calcification intradural vertebral arteries are noted. Bilateral intraocular lens replacements noted. IMPRESSION: Moderate atrophy and multifocal white matter chronic ischemic change without acute hemorrhage or mass effect. Approved by: Tae Flores M.D. on 07/30/2021 at 1:02
[2021-07-30 00:52] LABS: COVID19 -Nasal RAPID Negative (Negative)
[2021-07-30 00:56] LABS: Add Manual Diff / Slide Review NO; Basophils Absolute Auto 0 /uL (0-100); Basophils Percent Auto 0.5 % (0-2); Eosinophils Absolute Auto 100 /uL (0-450); Eosinophils Percent Auto 1.6 % (2-4); Hematocrit 39.5 % (41-53); Hemoglobin 13.3 g/dL (13.5-17.5); Lymphocytes Absolute Auto 1400 /uL (1100-4500); Lymphocytes Percent Auto 20.1 % (25-40); Mean Corpuscular HGB Conc 33.7 % (30-36); Mean Corpuscular Hemoglobin 31.1 PG (26-34); Mean Corpuscular Volume 92.1 fL (80-100); Monocytes Absolute Auto 700 /uL (0-900); Monocytes Percent Auto 9.1 % (3-14); Neutrophils Absolute Auto 4900 /uL (1500-7000); Neutrophils Percent Auto 68.7 % (50-75); Platelet Count 146 X10^3/uL (150-400); Red Blood Cell Count 4.29 X10^6/uL (4.5-5.9); Red Cell Distribution Width 13.8 % (11.6-14.8); White Blood Cell Count 7.2 X10^3/uL (4.5-11.0)
[2021-07-30] MEDS: ASPIRIN 81 MG CHEW TAB 324 MG PO (00:58)
[2021-07-30] MEDS: SODIUM CHLORIDE 0.9% 1,000 ML 150 ML IV ×2 (00:58→04:45)
[2021-07-30] MEDS: NITROGLYCERIN 0.4 MG SL TAB SL (00:58)
[2021-07-30 01:06] LABS: Alanine Aminotransferase 34 IU/L (<50); Albumin 4.6 g/dL (3.5-5.0); Albumin Globulin Ratio 1.5 (1.0-2.8); Alkaline Phosphatase 82 U/L (38-126); Aspartate Aminotransferase 34 IU/L (17-59); BUN Creatinine Ratio 11.8 (6-22); Bilirubin Total 0.5 mg/dL (0.2-1.3); Blood Urea Nitrogen 10 mg/dL (9-20); Calcium 9.6 mg/dL (8.4-10.2); Carbon Dioxide 22 mmol/L (22-32); Chloride 99 mmol/L (98-107); Creatine Kinase 303 U/L (55-170); Estimated Glomerular Filt Rate > 60.0 mL/min (>60); Globulin 3.1 g/dL (1.7-4.1); Glucose 298 mg/dL (80-110); HEMOLYSIS < 15 (0-50); Lipase 393 U/L (23-300); Potassium 3.7 mmol/L (3.4-5.1); Sodium 135 mmol/L (137-145); Total Protein 7.7 g/dL (6.3-8.2)
[2021-07-30 01:15] LABS: NT-proBNP (BNP-Adult 18+) 323 pg/mL (<125)
[2021-07-30 01:17] LABS: Lactate (Lactic Acid) 3.3 mmol/L (0.7-2.1)
[2021-07-30 01:22] LABS: CKMB % Relative Index 1.7 % (1.5-5.0); Creatine Kinase MB 5.02 ng/mL (<2.37)
[2021-07-30 01:23] LABS: Procalcitonin 0.15 ng/mL (<0.5)
--- NOTE | 2021-07-30 01:23 | DI.CT.S_ITS ---
PROCEDURE: CT ANGIO CHEST PE PROTOCOL INDICATIONS: chest pain, tachycardia TECHNIQUE: After the administration of intravenous contrast, 2 mm thick sections acquired from the pulmonary apices to the posterior costophrenic angles. For radiation dose reduction, the following was used: automated exposure control, adjustment of mA and/or kV according to patient size. COMPARISON: [facility], CT, CT KIDNEY URETER BLADDER (KUB), 10/20/2020, 12:22. [facility], CT, CT ANGIO HEAD AND NECK, 07/06/2021, 1:12. [facility], CT, CT ANGIO HEAD AND NECK, 09/22/2019, 13:06. FINDINGS: Image quality: Excellent. Pulmonary arteries: Pulmonary arteries are normal in size, and demonstrate no intraluminal filling defects to suggest central pulmonary embolism. Lungs and pleura: Lungs are clear. No pleural effusions or pneumothorax. Central and peripheral airways are patent. Mediastinum: Heart size is normal, without pericardial effusion. No mediastinal or hilar adenopathy. Thoracic aorta is normal in caliber and enhancement. Ring distal esophageal wall thickening and moderate hiatal hernia noted. Bones and chest wall: No suspicious bony lesions. Ribs and thoracic spine appear intact throughout. Thyroid gland unremarkable as visualized. No axillary or supraclavicular adenopathy. Abdomen: Unremarkable IMPRESSION: 1. No evidence of pulmonary embolism, aortic dissection or aneurysm. 2. Moderate hiatal hernia with evidence of wall thickening of the hernia sac as well as distal esophagus consistent with esophagitis/gastritis Approved by: Tae Flores M.D. on 07/30/2021 at 1:09
[2021-07-30 03:06] LABS: Reflexed Lactate in 2 Hours Y
[2021-07-30 03:15] LABS: Bacteria Urine Few (2-10); RBC Urine None Seen (0-5/HPF); Squamous Epithelial Cell Urine 1-5 /HPF (0-5/HPF); WBC Urine None Seen (0-5/HPF)
[2021-07-30 03:18] LABS: Troponin I 0.031 ng/mL (0.01-0.034)
[2021-07-30 03:18] LABS: Lactate 2HR (Lactic Acid Rflx) 1.7 mmol/L (0.7-2.1)
[2021-07-30] MEDS: ALBUTEROL 2.5 MG/3 ML NEB (ADULT) INH (03:58)
[2021-07-30 04:46] LABS: Adenovirus Not Detected (Not Detect); SARS- CoV-2 Not Detected (Not Detecte)
[2021-07-30 04:47] LABS: B. parapertussis Not Detected (Not Detecte); Bordetella pertussis Not Detected (Not Detecte); Chlamydophila pneumoniae Not Detected (Not Detect); Coronavirus 229E Not Detected (Not Detect); Coronavirus HKU1 Not Detected (Not Detect); Coronavirus NL 63 Not Detected (Not Detect); Coronavirus OC43 Not Detected (Not Detect); Human Metapneumovirus Not Detected (Not Detect); Human Rhinovirus/Enterovirus Not Detected (Not Detect); Influenza A Not Detected (Not Detect); Influenza B Not Detected (Not Detect); Mycoplasma pneumoniae Not Detected (Not Detect); Parainfluenza Virus 1 Not Detected (Not Detect); Parainfluenza Virus 2 Not Detected (Not Detect); Parainfluenza Virus 3 Not Detected (Not Detect); Parainfluenza Virus 4 Not Detected (Not Detect); Respiratory Syncytial Virus Not Detected (Not Detect)
--- NOTE | 2021-07-30 05:34 | PC.ADMIT ---
Addendum entered by Salvador Madrid R.N. 07/30/21 05:42: CBG 298 on admission to . Original Note: [email or web address] Admission Note: Patient admitted with hypertensive emergency. BP on admit 192/108, RR 22, HR 107, 95% on RA. Incentive spirometer up to 2500. Hacking cough present with scant, clear sputum; subsiding as admission progresses. Patient reports pain 5/10 at left head and neck, patient states they have been experiencing this for 1 month. Patient reports feeling anxiety following respiratory treatments, declines further treatments until they are able to have something to calm down. Post void residuals ~180 mL. Placed on Tele #10, sinus tach. Patient states they have been out of home medications for roughly one week, including carvedilol. Awaiting orders to further plan of care. The patient,Randolph Cisneros,70 y/o, was given written information regarding hospital policies, unit procedures and contact persons.
--- NOTE | 2021-07-30 06:28 | PC.NURSE ---
notified Sourav Khalil MD for orders for continued HTN and patient care needs: VS BP 190/104 MAP 104, HR 102, RR 20, 97% RA, C/O piN 5/10 Left head and neck, pt reports anxiety. Orders received 1 time Hydralazine 50 mg PO now and await further orders from Dr Guzman at 0700.
[2021-07-30] MEDS: HYDRALAZINE 25 MG TABLET 50 MG PO (06:40)
--- NOTE | 2021-07-30 07:43 | DI.ECHO.S_ITS ---
[facility]---------+ [facility] +---------+ : : [address] : [place] : : : : [id number] : : : : Phone: [phone]---------+ Echocardiogram Report + + :Name: CHRISTOPHE COBOS Study Date: 07/30/2021 Height: 67 in : :[facility]: Weight: 204 lb : : Gender: Male BSA: 2.0 m2 : :: 1950 Age: 70 yrs BP: 190/104 mmHg: :Referring: DANIELLE TRUJILLO R : + + Interpretation Summary Limited study. Mild concentric left ventricular hypertrophy with ejection fraction 35-40%. Comparison is made with the echocardiogram of 07/06/2021, there has been no significant change. Procedure: A two-dimensional transthoracic echocardiogram with color flow and Doppler was performed in limited views only to assess ejection fraction. The study quality was technically adequate. Comparison is made with the echocardiogram of 07/06/2021. Left Ventricle: There is mild concentric left ventricular hypertrophy. The estimated left ventricular end diastolic volume is 117 ml. The ejection fraction is estimated to be 35-40%. Right Ventricle: There is a pacemaker lead in the right ventricle. Atria: Both atria are normal in size. Great Vessels: The IVC is of normal diameter and collapses greater than 50% with a sniff. This suggests a low right atrial pressure of 3 mm Hg. Pericardium/ Pleura There is no pericardial effusion. There is no pleural effusion. MMode/2D Measurements & Calculations LVIDd: 6.0 cm LA A2 area: 21.7 cm2 LVIDs: 4.9 cm LA A4 area: 15.0 cm2 FS: 18.7 % LA length (vol): 4.3 cm IVSd: 1.3 cm LA vol: 64.1 ml LVPWd: 0.96 cm LA vol index: 31.4 ml/m2 LV thompson. diameter/BSA (cm/m^2): 2.9 LV sys. diameter/BSA (cm/m^2): 2.4 RA long axis: 5.2 cm RA area: 12.7 cm2 RA vol: 26.3 ml RA : 12.9 ml/m2 IVC diam: 1.3 cm Electronically signed by: Dimas Snider on Reading Physician:07/30/2021 05:50 PM
--- NOTE | 2021-07-30 07:46 | P.HP_ITS ---
History of Present Illness History of Present Illness Date Patient Seen: 07/30/21 Time Patient Seen: 07:47 Chief complaint: fatigue chest congestion cough headache Narrative: 70-year-old male recently hospitalized with probable stroke admitted by the emergency department after presenting early in the morning with symptoms of fatigue cough maybe some mild shortness of breath and symptomatic chest congestion. Also had a persistent headache with some left-sided neck discomfort which is been ongoing. Unsure about fevers but has felt sweaty at times. Some vague abdominal symptoms as well without specific nausea or vomiting. No change in stools. Denies any urinary tract symptoms such as frequency blood in the urine pain or burning with urination. In the ER he was found to be quite hypertensive and somewhat tachycardic with a sinus rhythm on EKG. Pulmonary workup was unremarkable including chest CT. EKG other than the tachycardia was unremarkable. His white blood cell count was normal, CPK and troponin normal. BNP minimally elevated. Procalcitonin normal but lactate was elevated at 3.3. Head CT was unremarkable including specific look at sinuses and mastoids. No source of infection in the area of his head and neck discomfort was noted. Some chronic white matter changes but no acute hemorrhage or mass effect noted either. This was done without contrast. He was admitted for control of blood pressure and continued evaluation. As I see him this morning he is having some mild nausea. Coughing seems to have made things worse. In addition he tells me that he did not get a refill of his carvedilol from his mail order pharmacy and has gone without that for least 2 days maybe longer. All of his other meds did arrive and he has been taking them without fail. Patient History Medical History Automatic implantable cardiac defibrillator in situ (~07/2019) Degeneration of intervertebral disc of cervical region Diabetic peripheral neuropathy (07/25/15) Essential hypertension [facility]CI current use of insulin (08/20/16) Mixed hyperlipidemia Nonischemic cardiomyopathy (09/09/16) Type 2 diabetes mellitus with hyperglycemia, with long-term current use of insulin Type 2 diabetes mellitus without complication Family & Social History Social History: household members none lives independently Yes caregiver/support person Yes Safety & Behavioral: Feels Safe in Current Yes Environment Tobacco & Substance use: Smoking Status Never smoker alcohol intake current alcohol intake frequency a few times a month Substance Use Type does not use Meds Home Medications and Allergies Home Medications Medication Instructions Recorded Confirmed Type carvedilol 25 mg tablet (Coreg) 25 mg PO BID #180 tab 10/12/19 07/19/21 Rx losartan 100 mg tablet (Cozaar) 100 mg PO QDAY #90 tab 10/12/19 07/19/21 Rx simvastatin 40 mg tablet (Zocor) 20 mg PO DAILY #45 tab 10/12/19 07/19/21 Rx spironolactone 25 mg tablet 25 mg PO QDAY #90 tab 10/12/19 07/19/21 Rx Glucose: Test Strips #500 each 07/28/20 07/19/21 Rx insulin NPH-regular 70-30 U-100 See Rx Instructions SUBCUT 08/30/20 07/19/21 Rx insulin 100 unit/mL subcutaneous .COMPLEX #200 ml pen (Humulin 70/30 U-100 KwikPen) tamsulosin 0.4 mg capsule 0.4 mg PO DAILY #90 cap 12/04/20 07/19/21 Rx trazodone 50 mg tablet 50 mg PO HS #90 tabs 12/04/20 07/19/21 Rx glipizide 10 mg tablet 10 mg PO BID #180 tab 01/02/21 07/19/21 Rx metformin 500 mg tablet,extended 1,000 mg PO BID #360 tab 02/05/21 07/19/21 Rx release 24 hr (Glucophage XR) magnesium oxide 400 mg (241.3 mg 400 mg PO DAILY 03/20/21 07/19/21 History magnesium) tablet gabapentin 300 mg capsule 300 mg PO BEDTIME #90 cap 04/30/21 07/19/21 Rx nortriptyline 50 mg capsule See Rx Instructions PO HS #180 cap 04/30/21 07/19/21 Rx omeprazole 20 mg capsule,delayed 20 mg PO Q DAY #90 cap 04/30/21 07/19/21 Rx release flash glucose scanning reader #1 ea 06/19/21 07/19/21 Rx (FreeStyle Tara 14 Day [place]) flash glucose sensor (FreeStyle #1 ea 06/19/21 07/19/21 Rx Tara 14 Day Sensor) aspirin 325 mg tablet,delayed 325 mg PO DAILY #250 tab 07/06/21 07/19/21 Rx release oxycodone 5 mg tablet 5 mg PO Q6H PRN #14 tab 07/16/21 07/19/21 Rx Allergies Allergy/AdvReac Type Severity Reaction Status Date / Time No Known Drug Allergies Allergy Verified 07/19/21 10:18 Review of Systems Constitutional Constitutional: Reports difficulty sleeping, Denies excessive sweating, Reports fever(s) ([place] sweaty anyway), Reports headache(s) (Left neck and ear behind ear), Reports weakness, Denies weight gain and Denies weight loss Eyes Eyes: Denies change in vision, Denies itchy eyes, Denies loss of vision and Denies other visual disturbances ENT Ears, Nose, Mouth, and Throat: No change in voice, No dysphagia, No dizziness, No otalgia, Yes headache(s) (Left neck and ear behind ear), No hoarseness, No lip swelling, Yes neck pain, No sore throat, No throat swelling and No tongue swelling Cardiovascular Cardiovascular: Denies chest pain, Denies syncope, Denies rapid heart rate, Denies irregular heart rhythm, Denies palpitations, Reports dyspnea, Reports dyspnea on exertion and Denies slow heart rate Respiratory Respiratory: Reports chest congestion, Reports cough, Denies hemoptysis, Reports dyspnea, Reports dyspnea on exertion, Denies stridor and Denies wheezing Gastrointestinal Gastrointestinal: Reports abdominal pain, Denies bloating, Denies change in bowel habits, Denies change in stool character, Denies dysphagia, Reports nausea, Denies vomiting and Denies hematemesis Genitourinary Genitourinary: Denies hematuria, Denies difficulty urinating and Denies urinary frequency Musculoskeletal Musculoskeletal: Denies abnormal gait, Denies myalgias, Denies arthralgias, Denies limited range of motion and Reports neck pain Integumentary/Breasts Skin/Breast: Denies bleeding lesions, Denies change in pigmentation, Denies changing lesions, Denies new lesions, Denies rash, Denies skin swelling, Denies sores and Denies jaundice Neurologic Neurologic: Denies abnormal speech, Denies abnormal gait, Denies behavioral changes, Denies confusion, Denies dizziness, Denies syncope, Reports headache(s) (Left neck and ear behind ear), Denies loss of vision, Denies memory loss, Denies seizure-like activity, Denies paresthesias and Reports weakness Psychiatric Psychiatric: Denies behavioral changes, Denies change in appetite, Denies confusion, Denies difficulty concentrating, Denies auditory hallucinations, Denies memory loss, Denies mood swings and Denies suicidal ideation Endocrine Endocrine: Denies excessive sweating, Denies flushing, Denies polyuria and Denies palpitations Hematologic/Lymphatic Hematologic/Lymphatic: Denies easy bleeding, Denies easy bruising and Denies lymphadenopathy Allergic/Immunologic Allergic/Immunologic: Denies urticaria, Denies itchy eyes, Denies lip swelling, Denies throat swelling, Denies tongue swelling and Denies wheezing Exam Vital Signs (past 8 hours): - 07/30/21 00:33 07/30/21 00:48 07/30/21 01:00 Temperature 98.5 F Pulse Rate 114 H 104 H 111 H Respiratory Rate 26 H Blood Pressure 223/117 H Pulse Oximetry 98 96 96 07/30/21 01:03 07/30/21 01:06 07/30/21 01:10 Temperature Pulse Rate 123 H 123 H 119 H Respiratory Rate 24 Blood Pressure 139/77 150/84 H 166/77 H Pulse Oximetry 92 93 92 07/30/21 01:16 07/30/21 01:20 07/30/21 01:25 Temperature Pulse Rate 108 H 107 H 104 H Respiratory Rate 20 36 H Blood Pressure 180/89 H 182/89 H 169/85 H Pulse Oximetry 93 92 92 07/30/21 01:30 07/30/21 01:36 07/30/21 01:40 Temperature Pulse Rate 106 H 105 H 106 H Respiratory Rate Blood Pressure 175/84 H 164/92 H 190/91 H Pulse Oximetry 93 93 95 07/30/21 01:45 07/30/21 01:58 07/30/21 02:00 Temperature Pulse Rate 100 H 99 H 100 H Respiratory Rate Blood Pressure 117/56 L 183/90 H Pulse Oximetry 95 95 94 07/30/21 02:06 07/30/21 02:30 07/30/21 03:00 Temperature Pulse Rate 100 H 94 H 99 H Respiratory Rate 20 27 H Blood Pressure 171/91 H 178/89 H 189/91 H Pulse Oximetry 95 91 95 07/30/21 03:59 07/30/21 04:00 07/30/21 04:02 Temperature Pulse Rate 106 H 110 H 104 H Respiratory Rate 13 Blood Pressure 197/108 H Pulse Oximetry 99 99 97 07/30/21 04:04 07/30/21 04:05 07/30/21 05:00 Temperature 96.1 F L Pulse Rate 102 H 100 H 107 H Respiratory Rate 19 22 22 Blood Pressure 206/96 H 192/108 H Pulse Oximetry 97 99 95 07/30/21 05:45 07/30/21 06:40 Temperature Pulse Rate 100 H 102 H Respiratory Rate 24 Blood Pressure 190/104 H Pulse Oximetry 99 Oxygen Delivery Method Room Air Narrative Exam Narrative: Elderly male in no obvious distress sitting on the edge of his bed. He looks to be at baseline with some low-level element of sort of looking disheveled, which is his baseline HEENT-normocephalic atraumatic PERRLA EOMs intact Neck-no lymphadenopathy no bruits Lungs-clear with good breath sounds although coughing interrupts an adequate exam Heart-regular rate and rhythm minimally tachycardic Abdomen-benign, positive bowel tones soft nontender nondistended Extremities-no cyanosis clubbing or edema Neuro-moves all 4 extremities. Able to stand without difficulty. Gait not specifically tested Objective Labs Result Diagrams: 07/30/21 00:40 07/30/21 00:40 Labs: Laboratory Results - last 24 hr 07/30/21 07/30/21 07/30/21 00:35 00:40 00:40 WBC RBC Hgb Hct MCV MCH MCHC RDW Plt Count Neut % (Auto) Lymph % (Auto) [place] % (Auto) Eos % (Auto) Baso % (Auto) Neut # (Auto) Lymph # (Auto) [place] # (Auto) Eos # (Auto) Baso # (Auto) Sodium Potassium Chloride Carbon Dioxide BUN Creatinine Estimated GFR BUN/Creatinine Ratio Glucose Lactate 3.3 H Calcium Total Bilirubin AST ALT Alkaline Phosphatase Total Creatine Kinase CK-MB (CK-2) CK-MB (CK-2) Rel Index Troponin I NT-Pro-B Natriuret Pep 323 H Total Protein Albumin Globulin Albumin/Globulin Ratio Lipase Procalcitonin 0.15 Urine RBC Urine WBC Ur Squamous Epith Cells Urine Bacteria Ur Culture Indicated? Chlamy pneumoniae PCR Adenovirus (PCR) B. pertussis DNA (PCR) B.parapertussis DNA PCR Coronavirus OC43 (PCR) Coronavirus HKU1 (PCR) Coronavirus 229E (PCR) SARS-CoV-2 (PCR) Negative Coronavirus NL63 (PCR) Human Metapneumovir PCR Influenza Type A (PCR) Influenza Type B (PCR) M. pneumoniae (PCR) Parainfluenza 1 (PCR) Parainfluenza 2 (PCR) Parainfluenza 3 (PCR) Parainfluenza 4 (PCR) RSV (PCR) Entero/Rhino (PCR) 07/30/21 07/30/21 07/30/21 00:40 00:40 02:45 WBC 7.2 RBC 4.29 L Hgb 13.3 L Hct 39.5 L MCV 92.1 MCH 31.1 MCHC 33.7 RDW 13.8 Plt Count 146 L Neut % (Auto) 68.7 Lymph % (Auto) 20.1 L [place] % (Auto) 9.1 Eos % (Auto) 1.6 L Baso % (Auto) 0.5 Neut # (Auto) 4900 Lymph # (Auto) 1400 [place] # (Auto) 700 Eos # (Auto) 100 Baso # (Auto) 0 Sodium 135 L Potassium 3.7 Chloride 99 Carbon Dioxide 22 BUN 10 Creatinine 0.85 Estimated GFR > 60.0 BUN/Creatinine Ratio 11.8 Glucose 298 H Lactate Calcium 9.6 Total Bilirubin 0.5 AST 34 ALT 34 Alkaline Phosphatase 82 Total Creatine Kinase 303 H CK-MB (CK-2) 5.02 H CK-MB (CK-2) Rel Index 1.7 Troponin I 0.030 0.031 NT-Pro-B Natriuret Pep Total Protein 7.7 Albumin 4.6 Globulin 3.1 Albumin/Globulin Ratio 1.5 Lipase 393 H Procalcitonin Urine RBC Urine WBC Ur Squamous Epith Cells Urine Bacteria Ur Culture Indicated? Chlamy pneumoniae PCR Adenovirus (PCR) B. pertussis DNA (PCR) B.parapertussis DNA PCR Coronavirus OC43 (PCR) Coronavirus HKU1 (PCR) Coronavirus 229E (PCR) SARS-CoV-2 (PCR) Coronavirus NL63 (PCR) Human Metapneumovir PCR Influenza Type A (PCR) Influenza Type B (PCR) M. pneumoniae (PCR) Parainfluenza 1 (PCR) Parainfluenza 2 (PCR) Parainfluenza 3 (PCR) Parainfluenza 4 (PCR) RSV (PCR) Entero/Rhino (PCR) 07/30/21 07/30/21 07/30/21 02:48 02:50 03:40 WBC RBC Hgb Hct MCV MCH MCHC RDW Plt Count Neut % (Auto) Lymph % (Auto) [place] % (Auto) Eos % (Auto) Baso % (Auto) Neut # (Auto) Lymph # (Auto) [place] # (Auto) Eos # (Auto) Baso # (Auto) Sodium Potassium Chloride Carbon Dioxide BUN Creatinine Estimated GFR BUN/Creatinine Ratio Glucose Lactate 1.7 Calcium Total Bilirubin AST ALT Alkaline Phosphatase Total Creatine Kinase CK-MB (CK-2) CK-MB (CK-2) Rel Index Troponin I NT-Pro-B Natriuret Pep Total Protein Albumin Globulin Albumin/Globulin Ratio Lipase Procalcitonin Urine RBC None seen Urine WBC None seen Ur Squamous Epith Cells 1-5 /hpf Urine Bacteria Few (2-10) H Ur Culture Indicated? Culture not indicate Chlamy pneumoniae PCR Not detected Adenovirus (PCR) Not detected B. pertussis DNA (PCR) Not detected B.parapertussis DNA PCR Not detected Coronavirus OC43 (PCR) Not detected Coronavirus HKU1 (PCR) Not detected Coronavirus 229E (PCR) Not detected SARS-CoV-2 (PCR) Not detected Coronavirus NL63 (PCR) Not detected Human Metapneumovir PCR Not detected Influenza Type A (PCR) Not detected Influenza Type B (PCR) Not detected M. pneumoniae (PCR) Not detected Parainfluenza 1 (PCR) Not detected Parainfluenza 2 (PCR) Not detected Parainfluenza 3 (PCR) Not detected Parainfluenza 4 (PCR) Not detected RSV (PCR) Not detected Entero/Rhino (PCR) Not detected Assessment & Plan Assessment & Plan narrative: 1. Hypertension-patient with hypertension and tachycardia likely secondary to his sudden discontinuation of his carvedilol. I put him back on it at a slightly higher dose. In addition I have added amlodipine to the regimen. For tunately his troponin and CPK were normal. Given his persistent tachycardia lack of other findings and his known cardiomyopathy I think it is worth performing at least in limited echocardiogram knowing that he had a full echocardiogram done on the 06 of July with his previous admission for his CVA. 2. Infectious disease-no clear evidence of an infectious disease at this point. Patient with negative respiratory panel for viral etiology negative procalcitonin although did have elevated lactate. I think we can explain his abnormal vitals on the basis of his sudden discontinuation of his beta-whitley therapy. Does have some minor GI symptoms and for the sake being thorough incomplete I am going to order an abdominal CT to look for evidence of an infectious etiology or other etiology within his abdomen to explain his symptoms 3. Respiratory-patient with some prominent respiratory symptoms but frankly he is not hypoxic he had a normal CT angiogram of the chest without evidence of infiltrate or pulmonary embolism. Normal white blood cell count and he is afebrile. There is perhaps a cardiac source of symptoms again a reason to do at least a limited echocardiogram I believe. Do not have any other particular etiology for patient's respiratory symptoms or his cough etcetera. 4. Neuro-patient's seems to have improved weakness of the left side of his face even beyond where was when I saw him in the office on the 19 of July. 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 Unable to perform MRI at this institution given his pacemaker/ICD. I am not sure that would change his current outcome. I can not really explain his ongoing left-sided head and neck symptoms. Specifically there is no evidence of infectious etiology on CT imaging in any of the usual locations including his sinuses and mastoids. Time of admission on the 06 of July with his CVA and no significant abnormality of the left carotid system was identified. Probable significant occlusion of the left vertebral. I am not sure again how to explain his symptoms in the face of lack of findings 5. Diabetes-continue patient's usual insulin and oral meds, and cover with sliding scale insulin as necessary 6. VTE prophylaxis-Lovenox makes sense and will initiate that 7. Code status-patient should be a full code in the event of sudden cardiac or respiratory arrest as per his request. Time Spent With Patient Critical Care time: I spent a total of [] minutes of critical care time on this patient's care today; this time is exclusive of procedural time.
[2021-07-30] MEDS: ASPIRIN EC 325 MG TABLET PO (08:17)
[2021-07-30] MEDS: AMLODIPINE 5 MG TABLET 7.5 MG PO (08:17)
[2021-07-30] MEDS: glipiZIDE 5 MG TABLET 10 MG PO (08:18)
[2021-07-30] MEDS: LOSARTAN 50 MG TABLET 100 MG PO (08:18)
[2021-07-30] MEDS: TAMSULOSIN 0.4 MG CAPSULE PO (08:18)
[2021-07-30] MEDS: carvediloL 12.5 MG TABLET 50 MG PO ×2 (08:18→21:45)
[2021-07-30] MEDS: SPIRONOLACTONE 25 MG TABLET PO (08:18)
[2021-07-30] MEDS: INSULIN LISPRO 100 UNIT/ML 3ML VIAL SUBCUT ×2 (08:19→11:56)
[2021-07-30] MEDS: MAGNESIUM OXIDE 400 MG TABLET PO (08:19)
[2021-07-30] MEDS: METFORMIN XR 500 MG TABLET 1000 MG PO (08:19)
--- NOTE | 2021-07-30 08:21 | DI.CT.S_ITS ---
PROCEDURE: CT ABDOMEN PELVIS W CON INDICATIONS: abd pain TECHNIQUE: After the administration of oral and intravenous contrast, axial sections were acquired from the lung bases to the pubic symphysis. Coronal and sagittal reformats were performed. For radiation dose reduction, the following was used: automated exposure control, adjustment of mA and/or kV according to patient size. COMPARISON:None. FINDINGS: Image quality: Excellent. Lung bases: Moderate to market circumferential wall thickening of the distal esophagus and mild hyperemia of the mucosa. No hiatal hernia. Lung bases are clear. Heart: Mild cardiomegaly with pacemaker leads present. ABDOMEN: Liver: Moderate hepatomegaly measuring 22.4 cm in length. Mild diffuse hepatic steatosis. No focal masses or cysts. Gallbladder: No wall thickening or calcified stones. Biliary ducts: Nondilated. Pancreas: Occasional scattered punctate calcifications. No ductal dilatation or pancreatic enlargement. Spleen: Normal. Adrenal Glands: No nodules. Kidneys and Ureters: Unremarkable. Stomach and Bowel: Stomach is distended, filled with ingested contrast material. The 2nd portion of the duodenum demonstrates mild circumferential wall thickening. Remainder of the small bowel and colon are normal. Normal appendix. Peritoneum: No abnormal intraperitoneal fluid. No free air. Ventral Wall: No hernia. Abdominal Nodes: No retroperitoneal or mesenteric adenopathy by size criteria. Vessels: Aorta and inferior vena cava are normal in size. Mild abdominal aortic atherosclerotic calcification. PELVIS: Pelvic Organs: Moderate prostatomegaly. Bladder: Mild urinary bladder wall thickening. Pelvic Nodes: No enlarged lymph nodes. Miscellaneous: No inguinal hernias are seen. Bones: Moderate degenerative changes in both hip joints. IMPRESSION: 1. Findings of distal esophagitis and duodenitis. 2. Hepatomegaly and hepatic steatosis. 3. Prostatomegaly and probable urinary bladder wall thickening secondary to chronic outlet obstruction. Dictated by: Lucrecia Tapia M.D. on 07/30/2021 at 10:09 Approved by: Lucrecia Tapia M.D. on 07/30/2021 at 10:18
[2021-07-30] MEDS: PANTOPRAZOLE DR 20 MG TABLET PO (08:38)
[2021-07-30] MEDS: ONDANSETRON 4 MG/2 ML INJ IV ×3 (08:38→21:56)
[2021-07-30] MEDS: OXYCODONE IR 5 MG TABLET PO (08:38)
[2021-07-30] MEDS: ENOXAPARIN 40 MG/0.4 ML SYRINGE SUBCUT (08:53)
[2021-07-30] MEDS: INSULIN NPH/REG 70-30 100 UNIT/ML 3ML VIAL 140 UNIT SUBCUT (08:53)
--- NOTE | 2021-07-30 16:42 | CM.DANOTE ---
DCP/Assessment: Reviewed chart. Patient is a 70yr old male admitted [facility] with Chest fatigue. PCP is Dr. Guzman. Primary payor is 1)Medicare 2)[facility]. Met with patient this afternoon, explained CM/SW role. Patient alert and oriented at time of visit with flat affect. Patient reports that he resides alone in [place] and plans to return home when medically stable. Patient reports that he is completely I with all ADL's. Patient does drive at baseline and reports that his car is in the parking lot. Notified patient that CM team would continue to follow if d/c planning needs were to arise. P: Home when stable. ANGELIQUE Cabrera Discharge Planning/Care Management CM Discharge Assessment Start: 07/30/21 16:38 Freq: Status: Active Protocol: Document 07/30/21 16:38 KJS (Rec: 07/30/21 16:41 [id number]) Discharge Planning Assessment Assigned Therapy Teacher ANGELIQUE Cabrera Contact Information Roscoe Cisneros (brother) ph# [phone] Advance Directives? No History Provided By Patient,Medical Record Prior Living Arrangements House Household Members none Type of transporation used prior to Drives own vehicle admit Independent with ADL's Yes Is patient alert and oriented? Yes Caregiver for Another No Barriers to Discharge No Discharge Plan Home Transportation Arrangement Patient reports that he has automobile in [facility] parking lot . Referrals Initiated None needed Whiteboard Updated in Patient Room with Yes name and ext. # of Therapy Teacher Review Status In Process Next Review Type Continued Stay Review
[2021-07-30] MEDS: MAGNESIUM HYDROXIDE 30 ML UDC PO (17:04)
[2021-07-30] MEDS: NORTRIPTYLINE HCL 25 MG CAPSULE 50 MG PO (21:45)
[2021-07-30] MEDS: GABAPENTIN 300 MG CAPSULE PO (21:46)
[2021-07-30] MEDS: DOCUSATE 100 MG CAPSULE 200 MG PO (21:46)
[2021-07-30] MEDS: ATORVASTATIN 20 MG TABLET 10 MG PO (21:47)
[2021-07-30] MEDS: SENNOSIDES 8.6 MG TABLET PO (21:47)
[2021-07-30] MEDS: TRAZODONE 50 MG TABLET PO (21:47)
[2021-07-30] MEDS: PANTOPRAZOLE DR 20 MG TABLET 40 MG PO (21:51)
[2021-07-31 00:20] VITALS: BP 119/57; PULSE 76; RESP 18; TEMP 37; O2SAT 98
[2021-07-31 03:17] VITALS: BMI 31.9
[2021-07-31 04:24] VITALS: BP 131/69; PULSE 88; RESP 18; TEMP 37.3; O2SAT 95
[2021-07-31 05:35] LABS: Add Manual Diff / Slide Review NO; Basophils Absolute Auto 0 /uL (0-100); Basophils Percent Auto 0.2 % (0-2); Eosinophils Absolute Auto 100 /uL (0-450); Eosinophils Percent Auto 1.1 % (2-4); Hematocrit 34.6 % (41-53); Hemoglobin 11.6 g/dL (13.5-17.5); Lymphocytes Absolute Auto 1400 /uL (1100-4500); Lymphocytes Percent Auto 17.2 % (25-40); Mean Corpuscular HGB Conc 33.6 % (30-36); Mean Corpuscular Hemoglobin 31.4 PG (26-34); Mean Corpuscular Volume 93.5 fL (80-100); Monocytes Absolute Auto 800 /uL (0-900); Monocytes Percent Auto 9.2 % (3-14); Neutrophils Absolute Auto 6000 /uL (1500-7000); Neutrophils Percent Auto 72.3 % (50-75); Platelet Count 138 X10^3/uL (150-400); Red Blood Cell Count 3.69 X10^6/uL (4.5-5.9); Red Cell Distribution Width 14.1 % (11.6-14.8); White Blood Cell Count 8.4 X10^3/uL (4.5-11.0)
[2021-07-31 05:41] LABS: Alanine Aminotransferase 25 IU/L (<50); Albumin 3.7 g/dL (3.5-5.0); Albumin Globulin Ratio 1.3 (1.0-2.8); Alkaline Phosphatase 57 U/L (38-126); Aspartate Aminotransferase 25 IU/L (17-59); BUN Creatinine Ratio 13.7 (6-22); Bilirubin Total 0.4 mg/dL (0.2-1.3); Blood Urea Nitrogen 13 mg/dL (9-20); Calcium 8.3 mg/dL (8.4-10.2); Carbon Dioxide 25 mmol/L (22-32); Chloride 102 mmol/L (98-107); Estimated Glomerular Filt Rate > 60.0 mL/min (>60); Globulin 2.8 g/dL (1.7-4.1); Glucose 192 mg/dL (80-110); HEMOLYSIS 17 (0-50); Potassium 3.7 mmol/L (3.4-5.1); Sodium 134 mmol/L (137-145); Total Protein 6.5 g/dL (6.3-8.2)
[2021-07-31] MEDS: PANTOPRAZOLE DR 20 MG TABLET 40 MG PO (06:13)
[2021-07-31 08:00] VITALS: BP 131/71; PULSE 80; RESP 20; TEMP 38.1; O2SAT 93
--- NOTE | 2021-07-31 08:15 | P.DS_ITS ---
History of Present Illness History of Present Illness Date Patient Seen: 07/31/21 Time Patient Seen: 08:15 Chief complaint: fatigue chest congestion cough headache Narrative: 70-year-old male recently hospitalized with probable stroke admitted by the emergency department after presenting early in the morning with symptoms of fatigue cough maybe some mild shortness of breath and symptomatic chest congestion. Also had a persistent headache with some left-sided neck discomfort which is been ongoing. Unsure about fevers but has felt sweaty at times. Some vague abdominal symptoms as well without specific nausea or vomiting. No change in stools. Denies any urinary tract symptoms such as frequency blood in the urine pain or burning with urination. In the ER he was found to be quite hypertensive and somewhat tachycardic with a sinus rhythm on EKG. Pulmonary workup was unremarkable including chest CT. EKG other than the tachycardia was unremarkable. His white blood cell count was normal, CPK and troponin normal. BNP minimally elevated. Procalcitonin normal but lactate was elevated at 3.3. Head CT was unremarkable including specific look at sinuses and mastoids. No source of infection in the area of his head and neck discomfort was noted. Some chronic white matter changes but no acute hemorrhage or mass effect noted either. This was done without contrast. He was admitted for control of blood pressure and continued evaluation. As I see him this morning he is having some mild nausea. Coughing seems to have made things worse. In addition he tells me that he did not get a refill of his carvedilol from his mail order pharmacy and has gone without that for least 2 days maybe longer. All of his other meds did arrive and he has been taking them without fail. Discharge Providers Provider Date of admission: 07/30/21 03:32 Discharge Date: 07/31/21 Primary care physician: Salvador Guzman MD Discharge provider: Salvador Guzman MD Summary Hospital Course Discharge Diagnosis: 1. Hypertensive urgency 2. Had pain 3. Type 2 diabetes, controlled 4. Cardiomyopathy, nonischemic 5. Mixed hyperlipidemia 6. Status post CVA Hospital Course: Patient was admitted to the hospital as noted in his history and physical. With reinstitution of his beta-whitley therapy at higher doses well as institution of amlodipine patient's blood pressure immediately became very well controlled heart rate was much much improved. CT of the abdomen was performed which revealed evidence of some esophagitis and possible duodenitis which may explain his very mild GI symptoms. Patient was started on appropriate high-dose proton pump inhibitor therapy. Patient had resolution of his GI symptoms in fact had an appetite. Patient was able to sleep with some additional medication and felt much improved by morning of discharge Repeat labs morning of discharge showed continued normal white blood cell count, vital signs were stable although perhaps very low-grade fever with most recent temperature noted at 99.2. Patient was completely asymptomatic. Very mild head pain. Overall patient was felt to be stable and ready for discharge. This hypertensive urgency was corrected in part by re-initiation of his beta-whitley therapy as well as additional medication. Patient already has an appointment to be seen in the outpatient clinic Status at Discharge Cognitive/behavioral status at discharge: at baseline, oriented Functional status at discharge: independent ambulation Overall status at discharge: patient is back to baseline Time Spent with Patient Time spent: Less than 30 minutes Exam Vital Signs (past 8 hours): - 07/31/21 00:20 07/31/21 04:24 Temperature 98.6 F 99.2 F Pulse Rate 76 88 Respiratory Rate 18 18 Blood Pressure 119/57 L 131/69 Pulse Oximetry 98 95 Oxygen Delivery Method Room Air Oxygen Flow Rate 0 Objective Labs Result Diagrams: 07/31/21 04:09 07/31/21 04:09 Labs: Laboratory Results - last 24 hr 07/31/21 07/31/21 04:09 04:09 WBC 8.4 RBC 3.69 L Hgb 11.6 L Hct 34.6 L MCV 93.5 MCH 31.4 MCHC 33.6 RDW 14.1 Plt Count 138 L Neut % (Auto) 72.3 Lymph % (Auto) 17.2 L [place] % (Auto) 9.2 Eos % (Auto) 1.1 L Baso % (Auto) 0.2 Neut # (Auto) 6000 Lymph # (Auto) 1400 [place] # (Auto) 800 Eos # (Auto) 100 Baso # (Auto) 0 Sodium 134 L Potassium 3.7 Chloride 102 Carbon Dioxide 25 BUN 13 Creatinine 0.95 Estimated GFR > 60.0 BUN/Creatinine Ratio 13.7 Glucose 192 H D Calcium 8.3 L Total Bilirubin 0.4 AST 25 ALT 25 Alkaline Phosphatase 57 Total Protein 6.5 Albumin 3.7 Globulin 2.8 Albumin/Globulin Ratio 1.3 [facility] Medical History Automatic implantable cardiac defibrillator in situ (~07/2019) Degeneration of intervertebral disc of cervical region Diabetic peripheral neuropathy (07/25/15) Essential hypertension [facility] current use of insulin (08/20/16) Mixed hyperlipidemia Nonischemic cardiomyopathy (09/09/16) Type 2 diabetes mellitus with hyperglycemia, with long-term current use of insulin Type 2 diabetes mellitus without complication Social History marital status: unmarried,single number of children: 0 household members: none lives independently: Yes caregiver/support person: Yes housing: house pets and animals: Yes education level: other (Bachelor's Degree) occupational status: other (Retired) current occupational exposures/hazards: No 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/caodaism: Buddhist travel history: recent leisure activities: music, reading and other (Hiking.) Smoking Status: Never smoker quit status: quit date established second hand exposure: No alcohol intake: current substance use type: does not use Discharge Assessment & Plan Assessment and Plan Plan of Treatment: Patient will keep his appointment to be seen by Dr. Guzman at [facility] on August 10, 2021 Patient will continue on change medication which includes a higher dose of carvedilol, the addition of amlodipine which required a switch to a atorvastatin from simvastatin. Patient also continue with limited numbers of oxycodone and meds for his GI tract including omeprazole at 40 mg b.i.d. plus senna due to the opiate narcotics. Discharge Plan Discharge Plan Patient Disposition: Home Discharge orders & Medications Prescriptions: New carvedilol 25 mg tablet 50 mg PO BID Qty: 120 RF: 4 omeprazole 40 mg capsule,delayed release(DR/EC) 40 mg PO BID Qty: 60 RF: 3 amlodipine 5 mg tablet 5 mg PO DAILY Qty: 30 RF: 3 atorvastatin 20 mg tablet 20 mg PO DAILY Qty: 30 RF: 3 sennosides [senna] 8.6 mg Tablet 8.6 mg PO BEDTIME Qty: 30 RF: 0 Continued Humulin 70/30 U-100 KwikPen 100 unit/mL (70-30) insulin pen See Rx Instructions SUBCUT .COMPLEX Qty: 200 RF: 10 trazodone 50 mg tablet 50 mg PO HS Qty: 90 RF: 3 tamsulosin 0.4 mg capsule 0.4 mg PO DAILY Qty: 90 RF: 3 glipizide 10 mg tablet 10 mg PO BID Qty: 180 RF: 3 metformin [Glucophage XR] 500 mg tablet extended release 24 hr 1,000 mg PO BID Qty: 360 RF: 3 nortriptyline 50 mg capsule See Rx Instructions PO HS Qty: 180 RF: 3 gabapentin 300 mg capsule 300 mg PO BEDTIME Qty: 90 RF: 3 magnesium oxide 400 mg (241.3 mg magnesium) tablet 400 mg PO DAILY RF: 0 losartan [Cozaar] 100 mg tablet 100 mg PO QDAY Qty: 90 RF: 3 spironolactone 25 mg tablet 25 mg PO QDAY Qty: 90 RF: 3 aspirin 325 mg Tablet,Delayed Release (Dr/Ec) 325 mg PO DAILY Qty: 250 RF: 0 oxycodone 5 mg tablet 5 mg PO Q6H PRN (Reason: pain) Qty: 30 RF: 0 Discontinued omeprazole 20 mg capsule,delayed release(DR/EC) 20 mg PO Q DAY Qty: 90 RF: 3 carvedilol [Coreg] 25 mg tablet 25 mg PO BID Qty: 180 RF: 3 simvastatin [Zocor] 40 mg tablet 20 mg PO DAILY Qty: 45 RF: 3 No Action (DME) Glucose: Test Strips 0 .Route .MEDSUPPLY Qty: 500 RF: 11 (DME) FreeStyle Tara 14 Day Sensor Kit See Rx Instructions .ROUTE .MEDSUPPLY Qty: 1 RF: 12 (DME) FreeStyle Tara 14 Day Bentley Misc See Rx Instructions .ROUTE .MEDSUPPLY Qty: 1 RF: 0 Follow up/Referrals: Salvador Guzman MD [Primary Care Provider] - (Keep August 10 2021 appointment) Discharge Health Status Multidrug resistant organism: No MDRO Diet/Activity/Treatments Diet: Diet as Tolerated, Regular and Carb-consistent/Diabetic Discharge Data Primary Care Provider: Salvador Guzman Attending Provider: Salvador Guzman
[2021-07-31] MEDS: INSULIN NPH/REG 70-30 100 UNIT/ML 3ML VIAL 140 UNIT SUBCUT (08:26)
[2021-07-31] MEDS: INSULIN LISPRO 100 UNIT/ML 3ML VIAL SUBCUT (08:26)
[2021-07-31 08:27] VITALS: TEMP 38.1
[2021-07-31] MEDS: LOSARTAN 50 MG TABLET 100 MG PO (08:27)
[2021-07-31] MEDS: ENOXAPARIN 40 MG/0.4 ML SYRINGE SUBCUT (08:27)
[2021-07-31] MEDS: DOCUSATE 100 MG CAPSULE 200 MG PO (08:27)
[2021-07-31] MEDS: ACETAMINOPHEN 325 MG TABLET 650 MG PO (08:27)
[2021-07-31] MEDS: carvediloL 12.5 MG TABLET 50 MG PO (08:27)
[2021-07-31] MEDS: METFORMIN XR 500 MG TABLET 1000 MG PO (08:27)
[2021-07-31] MEDS: TAMSULOSIN 0.4 MG CAPSULE PO (08:28)
[2021-07-31] MEDS: glipiZIDE 5 MG TABLET 10 MG PO (08:28)
[2021-07-31] MEDS: SPIRONOLACTONE 25 MG TABLET PO (08:28)
[2021-07-31] MEDS: ASPIRIN EC 325 MG TABLET PO (08:28)
[2021-07-31] MEDS: AMLODIPINE 5 MG TABLET 7.5 MG PO (08:28)
[2021-07-31] MEDS: MAGNESIUM OXIDE 400 MG TABLET PO (08:29)
[2021-07-31] MEDS: polyethylene glycoL 3350 17 GM POWD.PACK PO (08:29)
[2021-07-31 09:30] VITALS: TEMP 37.3
--- NOTE | 2021-07-31 11:45 | CM.DANOTE ---
Patient discharged home. Accompanied by ROMELIA Pardo, via wheelchair to private vehicle. All discharge instructions and information given to patient including new medications (Amlodipine, Senna, and Atorvastatin). Patient verbalized all understanding and denied any further questions. All belongings sent with patient.
== END 2021-07-31 11:47 | disposition home or self-care (01) ==
LOC: ED 00:32 → AC 03:33
PROVIDERS: Admitting Provider Family Medicine; Emergency Provider Emergency Medicine; PCP Internal Medicine; Visit Provider Internal Medicine
DX: I16.0 Hypertensive urgency (principal); R06.02 Shortness of breath; R00.0 Tachycardia, unspecified; R29.810 Facial weakness; R05 Cough; R51.9 Headache, unspecified; Z79.82 Long term (current) use of aspirin; E11.9 Type 2 diabetes mellitus without complications; Z79.4 Long term (current) use of insulin; I42.9 Cardiomyopathy, unspecified; Z95.0 Presence of cardiac pacemaker; E78.2 Mixed hyperlipidemia; Z20.822 Contact with and (suspected) exposure to COVID-19
CPT/HCPCS: 36415; 70450; 71045; 71275; 74177; 80053; 81003; 81015; 82550; 82553; 82962; 83605; 83690; 83880; 84145; 84484; 85025; 87040; 87070; 87077; 87086; 87147; 87186; 87205; 87633; 87635; 93005; 93010; 93307; 94640; 94762; 96361; 96372; 96374; 96376; 99217; 99219; 99285; C9803; G0378; J1650; J1815; J2405; J7613; Q9967

== ENCOUNTER 2021-08-15 01:39 | Inpatient (IN) | payer MEDICARE, SELFPAY ==
[2021-08-15] VITALS (10 sets, daily range): BP systolic 127–157; BP diastolic 66–87; PULSE 65–81; RESP 16–18; TEMP 36.1–36.6; O2SAT 95–97; BMI 31.1
--- NOTE | 2021-08-15 | DI.CT.S_ITS ---
PROCEDURE: CT ANGIO HEAD AND NECK INDICATIONS: WEAKNESS, SLURRED SPEECH TECHNIQUE: After the administration of intravenous contrast, 1 mm thick sections acquired from the aortic arch through the [place] of [place]. Post-contrast 4.5 mm thick sections then re-acquired from the foramen magnum to the vertex. 3-dimensional yujcowf-okmwiagrb-efsqalcyyo (MIP) and/or volume rendering reformats were acquired of the central intracranial vasculature and neck separately. COMPARISON: [facility], CT, CT HEAD/BRAIN WO CON, 08/15/2021, 1:48. [facility], CT, CT HEAD/BRAIN WO CON, 07/30/2021, 1:03. [facility], CT, CT STROKE, 07/06/2021, 1:12. [facility], CT, CT ANGIO HEAD AND NECK, 07/06/2021, 1:12. [facility], CT, CT ANGIO HEAD AND NECK, 09/22/2019, 13:06. FINDINGS: Image quality: Excellent. BRAIN: CSF spaces: Ventricles are normal in size and shape. Basal cisterns are patent. No extra-axial fluid collections. Brain: No midline shift. No intracranial bleeds. Small 9 millimeter in maximum diameter calcified left frontal-temporal convexity extra-axial mass is stable compared to prior examinations. Lazcano-white matter interface appears intact. Skull and face: Calvarium and facial bones appear intact, without suspicious lesions. Orbits appear normal. Sinuses: Sinuses and mastoids are clear. HEAD CT ANGIOGRAPHY: Anterior circulation: Intracranial internal carotid arteries are normal in flow. Atherosclerotic calcifications noted in the cavernous and clinoid segments of the left internal carotid artery which causes mild stenosis of the vessels. The flow within the paired anterior cerebral arteries is normal and symmetric. The flow within the middle cerebral arteries is normal and symmetric. The anterior communicating artery is seen. No aneurysms are seen. Posterior circulation: Atherosclerotic calcification noted in the V4 segment of the left vertebral artery which causes short segment, high-grade stenosis. Intracranial right vertebral artery is fully patent. There is normal flow in the basilar artery. Flow within the posterior cerebral arteries is normal and symmetric. No aneurysms are seen. NECK CT ANGIOGRAPHY: Carotid system: The great vessels demonstrate a conventional anatomy as they arise from the aortic arch. The origins of the common carotid arteries appear patent. The common carotid arteries demonstrate normal caliber and courses. Right internal carotid artery is fully patent. Mild plaque noted in the origin of the left internal carotid artery which causes less than 50% stenosis of the vessel. Posterior circulation: Atherosclerotic plaque noted in the origin of the right vertebral artery is causes high-grade stenosis. The origin left vertebral artery appears widely patent. The more superior extracranial portions of both vertebral arteries also demonstrate normal courses and calibers. They join to form a normal appearing basilar artery. Soft tissues: Visualized neck soft tissues demonstrate no suspicious abnormalities. Left-sided cardiac pacer is stable. Bones: No suspicious bony lesions. Spine degenerative disc disease and facet arthropathy. Visualized cervical spine appears normally aligned. IMPRESSION: 1. No acute intracranial disease process. 2. No large vessel occlusion, vascular dissection or aneurysm. 3. High-grade stenosis of the origin of the right vertebral artery and the V4 segment of the left vertebral artery. 4. No hemodynamically significant stenosis involving the internal carotid arteries. Any quantitative measurements of stenosis were performed using NASCET criteria. Dictated by: Mima Reece MD, PhD on 08/15/2021 at 8:16 Approved by: Mima Reece MD, PhD on 08/15/2021 at 8:20
--- NOTE | 2021-08-15 01:39 | DI.CT.S_ITS ---
PROCEDURE: CT HEAD/BRAIN WO CON INDICATIONS: weakness, slurred speech TECHNIQUE: Noncontrast 4.5 mm thick angled axial sections acquired from the foramen magnum to the vertex, with coronal and sagittal reformats. For radiation dose reduction, the following was used: automated exposure control, adjustment of mA and/or kV according to patient size. COMPARISON: [facility], CT, CT ANGIO HEAD AND NECK, 09/22/2019, 13:06. [facility], CT, CT STROKE, 07/06/2021, 1:12. [facility], CT, CT ANGIO HEAD AND NECK, 07/06/2021, 1:12. FINDINGS: Image quality: Excellent. CSF spaces: Basal cisterns are patent. No extra-axial fluid collections. The ventricles are symmetric in size and shape. Brain: No intracranial bleeds. 1.9 centimeter calcified right frontal temporal convexity extra-axial mass is stable compared to prior exams. Small chronic right rivas radiata lacunar infarct is stable. There is cerebral volume loss for age, with resultant ventricular and sulcal prominence. There are periventricular and deep white matter chronic small vessel ischemic changes. There is intracranial internal carotid artery and vertebral artery atherosclerosis. Skull and face: Calvarium and visualized facial bones appear intact, without suspicious lesions. Sinuses: Visualized sinuses and mastoids are clear. IMPRESSION: No acute intracranial disease process. Dictated by: iMma Reece MD, PhD on 08/15/2021 at 7:45 Approved by: Mima Reece MD, PhD on 08/15/2021 at 7:47
[2021-08-15] MEDS: ONDANSETRON 4 MG/2 ML INJ IV (02:05)
--- NOTE | 2021-08-15 02:06 | ED_ITS ---
HPI - Altered Mental Status General Chief Complaint: Neuro Symptoms/Deficit Stated Complaint: Alt LOC Time Seen by Provider: 08/15/21 01:45 History of Present Illness HPI narrative: 70-year-old male occasional smoker with history of type 2 diabetes with use of insulin, hypertension, hyperlipidemia, GERD, cardiomyopathy with pacemaker?presents by EMS for evaluation of altered mental status and weakness. He states that he went to bed it probably 7:00 p.m. and woke up just prior to his arrival and found that he could not move, he states it was his entire body, not one side or the other. He was recently seen and evaluated for left-sided stroke and admitted at our facility. He states that his symptoms never really resolved after that stroke. He states that he has largely been in his normal state of health including when he went to sleep last night. He denies any changes medications or diet. On arrival EMS found his blood sugar to be 67, he was given an amp of dextrose and by his arrival here there is very little if any change. Related Data Home Medications Medication Instructions Recorded Confirmed magnesium oxide 400 mg (241.3 mg 400 mg PO DAILY 03/20/21 08/10/21 magnesium) tablet Previous Rx's Medication Instructions Recorded losartan 100 mg tablet (Cozaar) 100 mg PO QDAY #90 tab 10/12/19 spironolactone 25 mg tablet 25 mg PO QDAY #90 tab 10/12/19 Glucose: Test Strips #500 each 07/28/20 insulin NPH-regular 70-30 U-100 See Rx Instructions SUBCUT 08/30/20 insulin 100 unit/mL subcutaneous .COMPLEX #200 ml pen (Humulin 70/30 U-100 AbhijitikPen) tamsulosin 0.4 mg capsule 0.4 mg PO DAILY #90 cap 12/04/20 trazodone 50 mg tablet 50 mg PO HS #90 tabs 12/04/20 glipizide 10 mg tablet 10 mg PO BID #180 tab 01/02/21 metformin 500 mg tablet,extended 1,000 mg PO BID #360 tab 02/05/21 release 24 hr (Glucophage XR) gabapentin 300 mg capsule 300 mg PO BEDTIME #90 cap 04/30/21 nortriptyline 50 mg capsule See Rx Instructions PO HS #180 cap 04/30/21 flash glucose scanning reader #1 ea 06/19/21 (FreeStyle Tara 14 Day [place]) flash glucose sensor (FreeStyle #1 ea 06/19/21 Tara 14 Day Sensor) aspirin 325 mg tablet,delayed 325 mg PO DAILY #250 tab 07/06/21 release sennosides 8.6 mg tablet (senna) 8.6 mg PO BEDTIME #30 tab 07/31/21 amlodipine 5 mg tablet 5 mg PO DAILY #90 tab 08/02/21 atorvastatin 20 mg tablet 20 mg PO DAILY #90 tab 08/02/21 carvedilol 25 mg tablet 50 mg PO BID #360 tab 08/02/21 omeprazole 40 mg capsule,delayed 40 mg PO BID #180 cap 08/02/21 release oxycodone 5 mg tablet 5 mg PO Q6H PRN #60 tab 08/10/21 Allergies Allergy/AdvReac Type Severity Reaction Status Date / Time No Known Drug Allergies Allergy Verified 08/10/21 14:38 Review of Systems Review of Systems Narrative: GENERAL: Denies chills, fatigue, malaise, fever, sweats. HEENT: Denies sinus pain, ear pain, sore throat, difficulty swallowing, dizziness. RESPIRATORY: Denies dyspnea, cough, wheezing, hemoptysis, sputum. CARDIOVASCULAR: Denies chest pain, palpitations, orthopnea, edema, GASTROINTESTINAL: Denies nausea, vomiting, abdominal pain, diarrhea, constipation, melena. : Denies dysuria, frequency, incontinence, hematuria, urinary retention. MUSCULOSKELETAL: denies weakness, joint pain, or bony pain SKIN: Denies rash, skin lesions, or other NEUROLOGIC: Denies weakness, headache, numbness, change in speech, confusion, seizures, incoordination. PSYCHIATRIC: No concerning psychosocial issues. 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/church: [employer] travel history: recent leisure activities: music, reading and other (Hiking.) Smoking Status: Never smoker quit status: quit date established second hand exposure: No alcohol intake: current substance use type: does not use Smoking Status: Never smoker alcohol intake frequency: a few times a month Substance Use Type: does not use Exam Narrative Exam Narrative: GENERAL: [70] year old patient appears stated age. Well- developed patient, in mild distress. HEAD: Atraumatic. Normocephalic. EYES: Pupils equal round and reactive. Extraocular motions intact. No scleral icterus. No injection or drainage. ENT: Nose without bleeding, purulent drainage. Throat without erythema, tonsillar hypertrophy or exudate. Airway patent. NECK: Trachea midline. Non tender CARDIOVASCULAR: Regular rate and rhythm without murmurs, gallops, or rubs. RESPIRATORY: Clear to auscultation. Breath sounds equal bilaterally. No wheezes, rales, or rhonchi. GASTROINTESTINAL: Abdomen soft, non-tender, nondistended. EXTREMITIES: No edema or joint tenderness. BACK: Nontender without deformity or crepitance. No flank tenderness. NEURO: AOx3. SKIN: No rash or erythema of visible areas Initial Vital Signs Initial Vital Signs: Vital Signs Temperature 97.5 F L 08/15/21 01:41 Pulse Rate 65 08/15/21 01:41 Respiratory Rate 18 08/15/21 01:41 Blood Pressure 157/67 H 08/15/21 01:41 Pulse Oximetry 97 08/15/21 01:41 Scores NIH Stroke Scale Level of Conciousness: Alert, keenly responsive Ask month/age: Answers both questions correctly. Open/close eyes, close hand: Performs both tasks correctly Best gaze horizontal: Normal Visual schneider: No visual loss Facial palsy: Minor paralysis, flattened nasolabial fold, asymmetry on smiling Left arm drift: Drifts down, not to bed Right arm drift: No drift for full 10 sec Left leg drift: Some effort against gravity, cannot maintain, drifts down to bed Right leg drift: No drift for full 5 sec Limb ataxia: Absent Sensory on face/arms/legs: Mild to moderate sensory loss, can tell touch Best language: No aphasia, normal Dysarthria: Mild to mod,some slurring Extinction or inattention: No abnormality Total NIH Stroke scale score: 6 Course Orders Ordered: ED Orders 08/15/21 CT angio head and neck Stat 08/15/21 01:15 Basic Metabolic Panel Stat Complete Blood Count AUTO DIFF Stat 08/15/21 01:39 CT head/brain wo con Stat 08/15/21 02:01 Urine Drug Screen, Rapid Stat EKG-12 Lead Stat Sodium Chloride (Normal Saline 0.9%) 1,000 mls @ 150 mls/hr IV CONT REINA Last Infusion: 08/15/21 05:29 Dose: 150 mls/hr Documented by: Admin: 08/15/21 02:24 Dose: 150 mls/hr Documented by: PRINCE Discontinued Medications Ondansetron HCl (Ondansetron 4 Mg/2 Ml Inj) 4 mg IV NOW ONE Stop: 08/15/21 02:02 Last Admin: 08/15/21 02:05 Dose: 4 mg Documented by: CASTRO Vital Signs Vital signs: Vital Signs - 8 hr 08/15/21 01:41 Temperature 97.5 F L Pulse Rate 65 Respiratory Rate 18 Blood Pressure 157/67 H Pulse Oximetry 97 MDM - Altered Mental Status Lab Data Result diagrams: 08/15/21 01:15 08/15/21 01:15 Labs: Lab Results 08/15/21 08/15/21 Range/Units 01:15 01:15 WBC 6.3 (4.5-11.0) X10^3/uL RBC 4.30 L (4.5-5.9) X10^6/uL Hgb 13.3 L (13.5-17.5) g/dL Hct 40.2 L (41-53) % MCV 93.4 (80-100) fL MCH 30.9 (26-34) PG MCHC 33.0 (30-36) % RDW 13.5 (11.6-14.8) % Plt Count 203 (150-400) X10^3/uL Neut % (Auto) 77.7 H (50-75) % Lymph % (Auto) 12.1 L (25-40) % [place] % (Auto) 7.0 (3-14) % Eos % (Auto) 2.7 (2-4) % Baso % (Auto) 0.5 (0-2) % Neut # (Auto) 4900 (4832-3287) /uL Lymph # (Auto) 800 L (0477-6685) /uL [place] # (Auto) 400 (0-900) /uL Eos # (Auto) 200 (0-450) /uL Baso # (Auto) 0 (0-100) /uL Sodium 139 (137-145) mmol/L Potassium 4.4 (3.4-5.1) mmol/L Chloride 103 (98-107) mmol/L Carbon Dioxide 23 (22-32) mmol/L BUN 30 H (9-20) mg/dL Creatinine 1.24 (0.66-1.25) mg/dL Estimated GFR 57.5 L (>60) mL/min BUN/Creatinine Ratio 24.2 H (6-22) Glucose 75 L (80-110) mg/dL Calcium 9.6 (8.4-10.2) mg/dL Point of Care Testing Glucose POC [address] scan - head: Radiologist's Impression: no hemorrhage or mass effect MDM Narrative Medical decision making narrative: Patient with relatively recent left-sided stroke had been at home for the past month or so in doing quite well. He is normally ambulatory and had some residual symptoms from stroke but could care for himself. He went to bed in his normal state of health at about 7 or 8:00 p.m. and arrived to the emergency department at about 140 a.m.. Patient was not activated as a code stroke given his symptoms outside of any tPA window and LAMS score of 3. Patient has been hypoglycemic and denies any change in his diabetic regimen. This does not seem to be the single contributor to his weakness tonight as his left leg is certainly more weak than the right and did not seem to have any symptoms earlier today. Patient will require hospitalization for further evaluation Discharge Plan Departure Patient Disposition: Admitted as Observation Clinical Impression: Stroke, Hypoglycemia Admit Date/Time: 08/15/21 03:35 Admit Provider: Salvador Guzman
[2021-08-15 02:08] LABS: Add Manual Diff / Slide Review NO; Basophils Absolute Auto 0 /uL (0-100); Basophils Percent Auto 0.5 % (0-2); Eosinophils Absolute Auto 200 /uL (0-450); Eosinophils Percent Auto 2.7 % (2-4); Hematocrit 40.2 % (41-53); Hemoglobin 13.3 g/dL (13.5-17.5); Lymphocytes Absolute Auto 800 /uL (1100-4500); Lymphocytes Percent Auto 12.1 % (25-40); Mean Corpuscular Hemoglobin 30.9 PG (26-34); Mean Corpuscular Volume 93.4 fL (80-100); Monocytes Absolute Auto 400 /uL (0-900); Neutrophils Absolute Auto 4900 /uL (1500-7000); Neutrophils Percent Auto 77.7 % (50-75); Platelet Count 203 X10^3/uL (150-400); Red Cell Distribution Width 13.5 % (11.6-14.8); White Blood Cell Count 6.3 X10^3/uL (4.5-11.0)
[2021-08-15 02:13] LABS: BUN Creatinine Ratio 24.2 (6-22); Blood Urea Nitrogen 30 mg/dL (9-20); Calcium 9.6 mg/dL (8.4-10.2); Carbon Dioxide 23 mmol/L (22-32); Chloride 103 mmol/L (98-107); Estimated Glomerular Filt Rate 57.5 mL/min (>60); Glucose 75 mg/dL (80-110); HEMOLYSIS 27 (0-50); Potassium 4.4 mmol/L (3.4-5.1); Sodium 139 mmol/L (137-145)
[2021-08-15] MEDS: SODIUM CHLORIDE 0.9% 1,000 ML 150 ML IV (02:24)
[2021-08-15 05:12] LABS: COVID19 - ADMIT (NP swab/PCR) Negative (Negative)
--- NOTE | 2021-08-15 07:00 | P.HP_ITS ---
History of Present Illness History of Present Illness Date Patient Seen: 08/15/21 Time Patient Seen: 07:00 Chief complaint: Alt LOC Narrative: 70-year-old, well known to me, with diabetes, who was recently admitted with stroke-like symptoms resulting in left-sided facial drooping as well as some left hand changes followed by an admission for a hypertensive emergency likely due to sudden discontinuation of his beta-whitley therapy now presents with increased left-sided weakness particularly of his leg. Patient reports he woke up after falling asleep in his chair and could not move his body. He somehow managed to get his cellphone out of his pocket after he falling remembered that he had in his pocket. Somehow was able to dial 911. He said his speech was very difficult slurred but the absorber operator understood him in sent medics. By the time medics arrived he was improved still could not really move or stand. They had to break the door down to get into his home. He was evaluated found to have a blood sugar of 67 given some IV dextrose with really n o subjective change. He was helped down stairs by medics and then put on a gurney and transported to the hospital. By the time he arrived at the hospital his speech was much better he was able to least move everything although still globally weak and difficulty with coordination with his hands etcetera He was evaluated in our ER felt to have progression of stroke and admitted for further evaluation. CT scan of the head and CT angiography of the head neck were unremarkable unchanged from previous showing a right vertebral stenosis/occlusion but really nothing new. In addition patient had been evaluated by his dentist on Friday the found to have a fractured tooth with evidence of infection was started on amoxicillin and Flagyl apparently per the dentist and given tramadol to take instead of oxycodone apparently took 1 tramadol on the but none on the 12th day of admission. Has been using oxycodone for his pain instead Patient is not a candidate for MRI given of implanted defibrillator. CT imaging is thus far been unremarkable including angiography. Patient was started on aspirin during last admission which he has not been taking previously. 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 (08/20/16) Mixed hyperlipidemia Nonischemic cardiomyopathy (09/09/16) Type 2 diabetes mellitus with hyperglycemia, with long-term current use of insulin Type 2 diabetes mellitus without complication Family & Social History Social History: household members none Prior Living Arrangements House lives independently Yes caregiver/support person Yes Safety & Behavioral: Feels Safe in Current Yes Environment Been Physically Hurt or No Threatened By a Person Suicidal Ideation Description None Suicide Plan Description No Plan Tobacco & Substance use: Smoking Status Never smoker alcohol intake current alcohol intake frequency a few times a week Substance Use Type does not use Meds Home Medications and Allergies Home Medications Medication Instructions Recorded Confirmed Type losartan 100 mg tablet (Cozaar) 100 mg PO QDAY #90 tab 10/12/19 08/10/21 Rx spironolactone 25 mg tablet 25 mg PO QDAY #90 tab 10/12/19 08/10/21 Rx Glucose: Test Strips #500 each 07/28/20 08/10/21 Rx insulin NPH-regular 70-30 U-100 See Rx Instructions SUBCUT 08/30/20 08/10/21 Rx insulin 100 unit/mL subcutaneous .COMPLEX #200 ml pen (Humulin 70/30 U-100 KwikPen) tamsulosin 0.4 mg capsule 0.4 mg PO DAILY #90 cap 12/04/20 08/10/21 Rx trazodone 50 mg tablet 50 mg PO HS #90 tabs 12/04/20 08/10/21 Rx glipizide 10 mg tablet 10 mg PO BID #180 tab 01/02/21 08/10/21 Rx metformin 500 mg tablet,extended 1,000 mg PO BID #360 tab 02/05/21 08/10/21 Rx release 24 hr (Glucophage XR) magnesium oxide 400 mg (241.3 mg 400 mg PO DAILY 03/20/21 08/10/21 History magnesium) tablet gabapentin 300 mg capsule 300 mg PO BEDTIME #90 cap 04/30/21 08/10/21 Rx nortriptyline 50 mg capsule See Rx Instructions PO HS #180 cap 04/30/21 08/10/21 Rx flash glucose scanning reader #1 ea 06/19/21 08/10/21 Rx (FreeStyle Tara 14 Day [place]) flash glucose sensor (FreeStyle #1 ea 06/19/21 08/10/21 Rx Tara 14 Day Sensor) aspirin 325 mg tablet,delayed 325 mg PO DAILY #250 tab 07/06/21 08/10/21 Rx release sennosides 8.6 mg tablet (senna) 8.6 mg PO BEDTIME #30 tab 07/31/21 08/10/21 Rx amlodipine 5 mg tablet 5 mg PO DAILY #90 tab 08/02/21 08/10/21 Rx atorvastatin 20 mg tablet 20 mg PO DAILY #90 tab 08/02/21 08/10/21 Rx carvedilol 25 mg tablet 50 mg PO BID #360 tab 08/02/21 08/10/21 Rx omeprazole 40 mg capsule,delayed 40 mg PO BID #180 cap 08/02/21 08/10/21 Rx release oxycodone 5 mg tablet 5 mg PO Q6H PRN #60 tab 08/10/21 08/10/21 Rx Allergies Allergy/AdvReac Type Severity Reaction Status Date / Time No Known Drug Allergies Allergy Verified 08/10/21 14:38 Review of Systems Constitutional Constitutional: Denies excessive sweating, Denies fever(s), Denies headache(s), Reports weakness, Denies weight gain and Denies weight loss Eyes Eyes: Denies change in vision, Denies itchy eyes, Denies loss of vision and Denies other visual disturbances ENT Ears, Nose, Mouth, and Throat: No change in voice, No dysphagia, No dizziness, No otalgia, No headache(s), No hoarseness, No lip swelling, No neck pain, No sore throat, No throat swelling and No tongue swelling Cardiovascular Cardiovascular: Denies chest pain, Denies syncope, Denies rapid heart rate, Denies irregular heart rhythm, Denies palpitations, Denies dyspnea, Denies dyspn ea on exertion and Denies slow heart rate Respiratory Respiratory: Denies chest congestion, Denies cough, Denies hemoptysis, Denies dyspnea, Denies dyspnea on exertion, Denies stridor and Denies wheezing Gastrointestinal Gastrointestinal: Denies abdominal pain, Denies bloating, Denies change in bowel habits, Denies change in stool character, Denies dysphagia, Denies nausea, Denies vomiting and Denies hematemesis Genitourinary Genitourinary: Denies hematuria, Denies difficulty urinating and Denies urinary frequency Musculoskeletal Musculoskeletal: Denies abnormal gait, Denies myalgias, Denies arthralgias, Denies limited range of motion and Denies neck pain Neurologic Neurologic: Denies abnormal gait, Denies behavioral changes, Denies confusion, D enies dizziness, Denies syncope, Denies headache(s), Denies loss of vision, Denies memory loss and Reports weakness Psychiatric Psychiatric: Denies behavioral changes, Denies change in appetite, Denies confusion, Denies difficulty concentrating, Denies auditory hallucinations, Denies memory loss, Denies mood swings and Denies suicidal ideation Endocrine Endocrine: Denies excessive sweating and Denies palpitations Hematologic/Lymphatic Hematologic/Lymphatic: Denies easy bleeding, Denies easy bruising and Denies lymphadenopathy Allergic/Immunologic Allergic/Immunologic: Denies itchy eyes, Denies lip swelling, Denies throat swelling, Denies tongue swelling and Denies wheezing Exam Vital Signs (past 8 hours): - 08/15/21 01:41 08/15/21 05:49 Temperature 97.5 F L 97.2 F L Pulse Rate 65 81 Respiratory Rate 18 16 Blood Pressure 157/67 H 155/87 H Pulse Oximetry 97 97 Oxygen Delivery Method Room Air Narrative Exam Narrative: Non acutely ill-appearing male who appears his normal self with continued improvement in his left facial droop lying in his hospital bed HEENT-normocephalic atraumatic. Left facial droop unchanged from when seen as an outpatient on the 10 of August Lungs-clear with good breath sounds Heart-regular rate and rhythm Abdomen-benign Extremities-no cyanosis clubbing or edema Neuro-moves all 4 extremities, 3/5 strength left hand, 4/5 strength right hand, no dysdiadochokinesis, 5/5 strength at the feet did not stand or test gait on patient, no abnormal reflexes Objective Labs Result Diagrams: 08/15/21 01:15 08/15/21 01:15 Labs: Laboratory Results - last 24 hr 08/15/21 08/15/21 08/15/21 01:15 01:15 04:13 WBC 6.3 RBC 4.30 L Hgb 13.3 L Hct 40.2 L MCV 93.4 MCH 30.9 MCHC 33.0 RDW 13.5 Plt Count 203 Neut % (Auto) 77.7 H Lymph % (Auto) 12.1 L [place] % (Auto) 7.0 Eos % (Auto) 2.7 Baso % (Auto) 0.5 Neut # (Auto) 4900 Lymph # (Auto) 800 L [place] # (Auto) 400 Eos # (Auto) 200 Baso # (Auto) 0 Sodium 139 Potassium 4.4 Chloride 103 Carbon Dioxide 23 BUN 30 H Creatinine 1.24 Estimated GFR 57.5 L BUN/Creatinine Ratio 24.2 H Glucose 75 L Calcium 9.6 SARS-CoV-2 (PCR) Negative Assessment & Plan Assessment & Plan narrative: 1. Weakness- patient with possible progression of stroke probably related to the same distribution of his previous stroke. His symptoms really are quite atypical he has got symptoms in all 4 extremities at some point including some persistent symptoms in both right arm and hand as well as left arm and hand which are more greatly affected. This does not really fit a neurologic distrib ution. I do not believe this is related to his medication either the antibiotics or the tramadol he took once at least 24 hours prior to his admission. I do not find any better etiology then progression of stroke. He is Not a candidate for advanced imaging but seems unlikely we would find anything based on lack of findings over a series of CT scan images, as has already been done. This does not appear to be large vessel process (such as MCA infarct) or I would assume we would have seen something by now on CT imaging. Patient will continue with anti-platelet therapy and have clopidogrel added to his regimen of aspirin as well. Do not believe that more aggressive anticoagulation would be appropriate at this time unless we find some cardiac dysrhythmia such as atrial fibrillation. Patient had echocardiogram during previous admission for CVA that will not need to be repeated at this time. Patient has not had to head and neck CT angiography exam is performed I do not believe there would be benefit to performing carotid ultrasound in addition to this. Patient will need physical therapy occupational therapy and speech therapy evaluations and discharge planning based on patient's ability or disabilities. Hopefully he will be able to return home 2. Diabetes-patient with rather poor control. Patient obviously was some dietary indiscretion requiring rather large doses of insulin for management. I doubt that his modest hypoglycemia had any role in any of this but is possible. I will continue his long-acting insulin at a slightly lower dose discontinue his glipizide which may be contributing factor to the hypoglycemia but continue his metformin. Obviously needs to continue on diabetic diet and will have dietary see him as well. 3. Hypertension-patient's blood pressure actually fairly well controlled for him at this time. Continue his usual antihypertensives 4. Hyperlipidemia-continue with atorvastatin for vascular risk reduction 5. Cardiomyopathy, nonischemic- asymptomatic at this time. Continue usual medications. This is why he has a defibrillator placed which is preventing an MRI as above 6. Code status-patient should be full code in the event of sudden cardiac or respiratory arrest per his request 7. 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 GI-patient presented with some prominent GI symptoms during his last admission. Found to have evidence maybe esophagitis and duodenitis. Has been on proton pump inhibitor sense with improvement in GI symptoms. Not complaining of anything at this time. Continue with proton pump inhibitors for now. 9. Dental infection-I will continue patient on oral antibiotics. I am going to choose penicillin without the Flagyl at this time. I suppose patient could be having a reaction to the Flagyl which is a common antibiotic for reactions to occur with although I have never seen or heard of this particular kind of reaction. He will need to have a visit with an oral surgeon to definitively address this issue of course in the future. Overall patient deserves inpatient hospitalization for evaluation of his stroke syndrome. He has had a stuttering course over the last several weeks. Unfortunately and not sure there is anything more definitive we can do to reverse this course at this time. He will likely be in the hospital greater than 48 hours to span 2 separate midnights as we evaluate and treat. Time Spent With Patient Critical Care time: I spent a total of [] minutes of critical care time on this patient's care today; this time is exclusive of procedural time.
[2021-08-15] MEDS: METFORMIN XR 500 MG TABLET 1000 MG PO ×2 (08:16→20:58)
[2021-08-15] MEDS: TAMSULOSIN 0.4 MG CAPSULE PO (08:16)
[2021-08-15] MEDS: ATORVASTATIN 20 MG TABLET PO (08:17)
[2021-08-15] MEDS: OXYCODONE IR 5 MG TABLET PO ×3 (08:17→20:57)
[2021-08-15] MEDS: AMLODIPINE 5 MG TABLET PO (08:17)
[2021-08-15] MEDS: carvediloL 12.5 MG TABLET 50 MG PO ×2 (08:17→20:57)
[2021-08-15] MEDS: ASPIRIN EC 325 MG TABLET PO (08:17)
[2021-08-15] MEDS: LOSARTAN 50 MG TABLET 100 MG PO (08:17)
[2021-08-15] MEDS: CLOPIDOGREL 75 MG TABLET PO (08:17)
[2021-08-15] MEDS: ENOXAPARIN 40 MG/0.4 ML SYRINGE SUBCUT (08:18)
[2021-08-15] MEDS: SPIRONOLACTONE 25 MG TABLET PO (08:18)
[2021-08-15] MEDS: MAGNESIUM OXIDE 400 MG TABLET PO (08:18)
[2021-08-15] MEDS: PANTOPRAZOLE DR 40 MG TABLET PO (09:06)
[2021-08-15] MEDS: INSULIN NPH/REG 70-30 100 UNIT/ML 3ML VIAL 120 UNIT SUBCUT (10:00)
--- NOTE | 2021-08-15 10:47 | PT.IIE ---
Medical History (Last Reviewed 08/15/21 @ 07:02 by Salvador Guzman MD) Automatic implantable cardiac defibrillator in situ (~07/2019) Degeneration of intervertebral disc of cervical region Diabetic peripheral neuropathy (07/25/15) Essential hypertension USP current use of insulin (08/20/16) Mixed hyperlipidemia Nonischemic cardiomyopathy (09/09/16) Type 2 diabetes mellitus with hyperglycemia, with long-term current use of insulin Type 2 diabetes mellitus without complication Physical Therapy Inpatient Evaluation/Re-Eval M1 PT/OT-IP Prior Functional Status Start: 08/15/21 11:57 Freq: NEEDED Status: Active Protocol: Document 08/15/21 10:47 AB (Rec: 08/15/21 12:09 AB [email or web address]) Medical Review Prior Functional Status Medical History Reviewed Yes Communication able to make needs known Mobility and Gait pt stated that he is independent with all mobilities and ambulation without AD Social History Household Members none Living Arrangements House Number of Floors (Floors) Two Floors Number of Stairs To Enter/Railing? no steps to enter but has 12 steps R rail ascending to get to main level of the house Home Environment Standard Height Toilet Additional Social History Comment pt does not have a shower but uses his tub to take a bath M2 PT-IP Current Condition Start: 08/15/21 11:57 Freq: NEEDED Status: Active Protocol: Document 08/15/21 10:47 AB (Rec: 08/15/21 12:09 AB [email or web address]) Physical Therapy Current Condition Current Condition Evaluation Date 08/15/21 Treatment Diagnosis hypoglycemia; CVA; weakness Onset Date 08/15/21 Precautions Other Precautions falls M3 PT-IP Subjective Start: 08/15/21 11:57 Freq: NEEDED Status: Active Protocol: Document 08/15/21 10:47 AB (Rec: 08/15/21 12:09 AB [email or web address]) Subjective Physical Therapy Visit Type Type Initial Evaluation Visit Start Time 10:47 Visit Stop Time 11:25 Total Visit Minutes 38 Number of VERIFICATION MANAGER Visits 0 Physical Therapy Visit Comments Patient Comments agreeable to do PT; continues to c/o weakness M4 PT-IP Mobility and Gait Start: 08/15/21 11:57 Freq: NEEDED Status: Active Protocol: Document 08/15/21 10:47 AB (Rec: 08/15/21 12:09 AB [email or web address]) PT-Bed Mobility Assessment Supine to Sit Supine to Sit Standby Assistance PT-Transfer Assessment Sit to and From Stand Sit to and from Stand Minimal Assistance,1 Person Assistance,Use of Upper Extremities Equipment Transfer Assistive Device Gait Belt,Front Wheeled Walker Orthotic/Prosthetic Devices or Brace: No Transfers Transfer Destination Chair Transfer Technique ambulated using FWW Transfer Ability Level of Assist Moderate Assistance,1 Person Assistance,Use of Upper Extremities Comments Mobility Comments completed supine to sit SBA. able to sit on EOB SBA. completed sit to stand min A and cues and ambulated in room using FWW mod A ~ 50 ft. presents with unsteady gait with narrow BRISEIDA. pt tends to tense up UE/trunk affecting balance and use of FWW. pt agreed to sit on chair. positioned on chair. call light and table placed within reach. Gait Assessment Gait Gait Assistance Required: Moderate Assistance Distance (Feet) 50 Able to Maintain Weight Bearing Status Yes During Gait Assistive Devices Assistive Device Gait Belt,Front Wheeled Walker Orthotic/Prosthetic Devices or Brace: No Gait Deviations General Gait Pattern Ataxic,Decreased Stride Length ,Decreased Feet Clearance, Narrow Based Gait Factors Limiting Gait Function Factors Limiting Gait Function Decreased Activity Tolerance, Decreased Sensation,Decreased Strength,Poor Balance,Poor Safety Awareness PT-Balance Assessment Sitting Balance and Reactions Static Sitting Balance Ability Good Dynamic Sitting Balance Ability Good Standing Balance and Reactions Static Standing Balance Ability Fair Dynamic Standing Balance Ability Poor Device Used FWW M5 PT-IP Objective Assessments Start: 08/15/21 11:57 Freq: NEEDED Status: Active Protocol: Document 08/15/21 10:47 AB (Rec: 08/15/21 12:09 [email or web address]) Orientation Orientation/Cognition Level of Alertness Alert Orientation Name,Place,Situation Language Function Ability No Deficits Noted Safety Awareness Understands Safety Issues Memory Description No Deficits Noted Gross Range of Motion Lower Extremity ROM Assessment Within Functional Limits Strength Comments Strength Comments L hip: 3+/5 L knee: 4-/5 R hip 4-/5 R knee: 3+/5 Sensation Assessment Sensation Gross Sensation Right LE Impaired,Left LE Impaired Light Touch Impaired Proprioception (Position) Impaired Sensation Description Burning Comments Sensation Comments chronic neuropathyon B feet with burning sensation Muscle Tone Muscle Tone WNL Yes M6 PT-IP Treatment Start: 08/15/21 11:57 Freq: NEEDED Status: Active Protocol: Document 08/15/21 10:47 AB (Rec: 08/15/21 12:09 AB [id number]) Physical Therapy Treatment Education Education Provided Safety M7 PT-IP Assessment and Plan Start: 08/15/21 11:57 Freq: NEEDED Status: Active Protocol: Document 08/15/21 10:47 AB (Rec: 08/15/21 12:09 AB [id number]) PT Summary Assessment and Plan Potential Rehabilitation Potential Fair Status of Condition at Evaluation Evolving Summary Impairments Pain,ROM,Strength,Balance, Coordination,Sensation,Tone, Cognition,Bed Mobility, Transfers,Gait,Activity Tolerance Assessment Summary pt requiring mod A with mobility and ambulation using FWW. presents with unsteady gait. pt will require 24/7 assist at this time and will benefit from SNF rehab. will continue to assess progress. Goals Bed Mobility Goal Independent Transfer Goal Standby Assistance,Front Wheeled Walker Gait Goal Standby Assistance,Front Wheel Walker Gait Distance 150 Other Goals ambulation without AD 150 ft SBA up/down 12 steps R rail SBA Days to Meet Goals 10 Frequency of Treatment Frequency Of Treatment Once a Day Treatment Plan Physical Therapy Treatment Plan Bed Mobility Training,Transfer Training,Gait Training, Therapeutic Exercise,Balance Retraining,Discharge Planning, Hot or Cold Pack,Neuromuscular Re-ed,Coordination Retraining Precautions Other Precautions falls Recommendations To Nursing Amount of Assist Needed 1 Person Assist Discharge Recommendations PT Discharge Recommendations SNF Rehab Transportation Needs at Discharge Wheelchair/Cabulance
--- NOTE | 2021-08-15 11:13 | ST.IPSCREEN ---
Order for speech and swallowing secondary to CVA. Saw pt in his room in his bed. Introduced self and purpose for visit. Pt denied speech and swallowing difficulties. Pt observed to drink water without s/sx aspiration. He reported no difficulty with breakfast today. He stated that chewing has not been a problem and that he has made dietary adjustments at home on his own (i.e., taking smaller bites, chewing longer etc.). Pt was able to hold air in cheeks against pressure and diadochokinetics was WNL. Very slight slur observed; intelligibility was @ 100%. No ST indicated at this time. will s/c order.
--- NOTE | 2021-08-15 11:41 | CM.DANOTE ---
DCP: Case received, EMR reviewed and met with patient. Introduced self and role. Was able to obtain information regarding patient's baseline activity status prior to his hospitalization. DCP assessment completed with information currently available. Patient is a 70 year old male who admitted early this morning to the care of the hospitalist team. PCP: Dr. Guzman. Payer: confirmed: Medicare/[employer]. Patient came to the hospital via ambulance secondary to having some weakness, and some difficulty with some numbness, and facial droop. Patient had been here recently with left sided CVA, and returned home with no issues. Patient can't have MRI due to his having a defibrillator. He was also noted to have hypoglycemia, patient has history of diabetes. Spoke to patient in his room. He was sitting up in bed, alert and oriented, pleasant. He confirmed that he resides alone here in [place]. At his baseline, he indicated that he has not used any DME, and is driving. He indicated that he was taking a nap, woke up, and had difficulty standing and talking. He was able to call 911. He currently indicated, he can't walk now. He has not yet worked with the therapy team. Confirmed with UR that patient should make inpatient status. Went ahead and placed a referral to [facility] for April to review, in case he needs shelter. Will also see how he does with P.T. P: DCP to continue to follow for needs. Yari Kapadia RN/Excellence Consultant Discharge Planning/Care Management CM Discharge Assessment Start: 08/15/21 11:36 Freq: Status: Active Protocol: Document 08/15/21 11:37 (Rec: 08/15/21 11:40 [id number]) Discharge Planning Assessment Assigned Corporate Planning Manager Yari Kapadia RN/Excellence Consultant Advance Directives? No History Provided By Patient,Medical Record Prior Living Arrangements House Household Members none Type of transporation used prior to Drives own vehicle admit Independent with ADL's Yes Is patient alert and oriented? Yes Caregiver for Another No Barriers to Discharge Yes Comment Lives alone, will see how he does with P.T. Discharge Plan Home Transportation Arrangement Self or facility, if he goes to skilled facility Referrals Initiated None needed Whiteboard Updated in Patient Room with Yes name and ext. # of Corporate Planning Manager Review Status In Process Next Review Type Continued Stay Review
--- NOTE | 2021-08-15 12:16 | OT.IP.EVAL ---
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 (08/20/16) Mixed hyperlipidemia Nonischemic cardiomyopathy (09/09/16) Type 2 diabetes mellitus with hyperglycemia, with long-term current use of insulin Type 2 diabetes mellitus without complication Occupational Therapy Inpatient Evaluation/Re-Eval M1 PT/OT-IP Prior Functional Status Start: 08/15/21 11:57 Freq: NEEDED Status: Active Protocol: Document 08/15/21 14:02 [facility] (Rec: 08/15/21 14:30 [facility] [id number]) Medical Review Prior Functional Status Medical History Reviewed Yes Communication able to make needs known Mobility and Gait pt stated that he is independent with all mobilities and ambulation without AD Activities of Daily Living and IADL's Completely independent for all ADl , IADl's, drives and takes care of his elderly pets who are 17 years old. Social History Household Members none Living Arrangements House Number of Floors (Floors) Two Floors Number of Stairs To Enter/Railing? no steps to enter but has 12 steps R rail ascending to get to main level of the house Home Environment Standard Height Toilet Additional Social History Comment pt does not have a shower but uses his tub to take a bath M2 OT-IP Current Condition Start: 08/15/21 14:01 Freq: Status: Active Protocol: Document 08/15/21 14:02 [facility] (Rec: 08/15/21 14:30 [facility] [id number]) Occupational Therapy Current Condition Current Condition Evaluation Date 08/15/21 Treatment Diagnosis CVA, decreased mobility Diagnosis Onset Date 08/15/21 M3 OT- IP Subjective and Pain Start: 08/15/21 14:01 Freq: Status: Active Protocol: Document 08/15/21 14:02 [facility] (Rec: 08/15/21 14:30 [facility] [id number]) OT- Subjective Occupational Therapy Visit Type Type Initial Evaluation Visit Start Time 11:23 Visit Stop Time 12:16 Total Visit Minutes 53 Occupational Therapy Visit Comments Patient Comments Pt agreed to work with OT. Patient/Caregiver Goals To go home. OT Pain Assessment Pain When Pain Assessed At Rest Pain Present Pain Present Denied Pain M4 OT- IP ADL's Start: 08/15/21 14:01 Freq: Status: Active Protocol: Document 08/15/21 14:02 [facility] (Rec: 08/15/21 14:30 [facility] [id number]) OT [id number] Comments OT Self-Feeding Comments Pt relies on his right hand more to assist for set-up needs. OT ADL-Grooming General Evaluation Grooming Ability Standby Assistance OT ADL-Dressing General Eval Lower Body Dressing Ability Moderate Assistance Comments OT Dressing Comments MODA for balance and safety while standing and leaning on the bed to socorro/doff his socks . OT ADL-Toileting Comments OT Toileting Comments Pt did not have to go. OT ADL-Bathing Comments OT Bathing Comments NOt at this time. M5 OT- IP IADL's Start: 08/15/21 14:01 Freq: Status: Active Protocol: Document 08/15/21 14:02 [facility] (Rec: 08/15/21 14:30 [facility] [id number]) OT-Instrumental Activities of Daily Living Deficits IADL Deficits Identified Deficits Home Safety Awareness Awareness of Need for Assistance at Home Good Awareness Ability to Problem Solve Emergency Able to Problem Solve Situations Medication Management Medication Management Comments Pt states has multiple pill bottles that he lines up and take his medications at home. Money Management Money Management Comments Pt states does automatic bill payment. Meal Preparation Meal Preparation Comments Pt states mainly just microwaves his meals. Cemetery Laborer Cemetery Laborer Comments At this time due to his decreased static and dynamic balance, pt will need assist for IADL needs as pt is a high risk of falls at this time. Driving Driving Comments Suggested not at this time. M6 OT- IP Functional Cognition Start: 08/15/21 14:01 Freq: Status: Active Protocol: Document 08/15/21 14:02 [facility] (Rec: 08/15/21 14:30 [facility] [id number]) Cognitive Factors Limiting Selfcare Function Cognitive Ability Level of Alertness Alert Patient Orientation Name,Age,Birthday,Month,Date, Year,Day of Week,Place, Situation Attention Span Ability Capable of Focused Attention, Capable of Sustained Attention Ability to Follow Commands Able to Follow Multi-Step Commands Problem Solving Ability No deficits Noted Cognitive Comments Cognitive Assessment Comments Pt scored 128seconds on [place] Making Part B which implies significant impairments for visual attention, task switching, speed of processing , executive functioning, and mental flexibility and suggested that pt not drive at this time. Pt able to recall the instructions but having a hard time to find and scan the numbers and letters. To assess pt with SLUMS/ACL tomorrow. OT- Vision and Hearing OT- Hearing Assessment OT- Hearing Assessment WFL OT- Vision Assessment Vision History Blurred Vision Visual Attentiveness WFL Occular Pursuits WFL Visual Andersen WFL Diplopia Present Vision Assessment Comments Pt states has blurred vision at time with left eye, especially when he is tired. Pt's left eye lags slightly during visual scanning. M7 OT- IP Mobility and Balance Start: 08/15/21 14:01 Freq: Status: Active Protocol: Document 08/15/21 14:02 [facility] (Rec: 08/15/21 14:30 [facility] [id number]) OT-Transfer Assessment Sit to and From Stand Sit to and from Stand Contact Guard Assistance Transfers Transfer Ability Minimal Assistance,Moderate Assistance Technique Transfer Destination Bed,Chair Transfer Technique Stand Step Pivot Devices Transfer Assistive Devices Gait Belt,Front Wheeled Walker Comments Mobility Comments Pt tend to lean to the left when up on his feet with FWW and needing DAREN for balance. Had pt take a few steps to the bed and needing MODA for balance. OT- Gait Assessment Comments Gait Ability Comments DAREN with FWW. OT- Balance Assessment Sitting Balance and Reactions Static Sitting Balance Ability Good Dynamic Sitting Balance Ability Fair Standing Balance and Reactions Static Standing Balance Ability Fair Dynamic Standing Balance Ability Poor M8 OT- IP Objective Assessments Start: 08/15/21 14:01 Freq: Status: Active Protocol: Document 08/15/21 14:02 [facility] (Rec: 08/15/21 14:30 [facility] [id number]) OT Gross Range of Motion Upper Extremity Range of Motion Assessment Within Functional Limits OT Strength Upper Extremity Strength Assessment Left Impaired Shoulder 4-/5 Elbow 4-/5 Hand 4/5 Comments Strength Comments RUE 4/5 OT- Coordination Assessment Upper Extremity Finger to Nose Test Within Functional Limits Comments Coordination Comments Right hand 25 seconds for 9 hole peg approx 75% for his age and Left hand approx 25% for his age. Pt states has difficulty with buttons and zippers with his hands. OT-Muscle Tone Assessment Muscle Tone WNL Yes OT Sensation Assessment Comments Summary Comments Intact for sensation however increased time and processing for left arm kinesthesia and proprioception. M9 OT- IP Assessment and Plan Start: 08/15/21 14:01 Freq: Status: Active Protocol: Document 08/15/21 14:02 [facility] (Rec: 08/15/21 14:30 [facility] [id number]) OT Summary Assessment and Plan Potential Rehabilitation Potential Excellent Analytic Complexity at Evaluation Moderate Summary OT Impairments Balance,Coordination, Functional Cognition, Functional Mobility,Grooming, Dressing,Toileting,Bathing, Toilet Transfers,Shower Transfers Progress Towards Goals Progressing Toward Goals Assessment Summary Pt MOD compexity and here due to possible progression of CVA probably related to the same distribution of his previous CVA, per Dr Guzman. Pt main barriers are steps, balance, decreased coordination and weakness in left hand, decreased executive functioning, left eye blurred vision and now needing use of FWW and assist for mobility needs. Prior pt lives alone and was completely independent for all needs. Pt is very motivated, cooperative and is a good candidate for acute rehab to work on increasing his balance, coordination, speed of processing ,and left eye vision so able to get back to taking care of his elderly pets at home. Goals Self-Feeding Goal Independent Grooming Goal Independent Dressing Goal Independent Toileting Goal Independent Bathing Goal Independent Toilet Transfer Goal Independent Shower Transfer Goal Independent Days to Meet Goals 15 Frequency of Treatment Frequency Of Treatment Once a Day Treatment Plan OT Treatment Plan ADL Training,Functional Cognition Training,Functional Mobility,Vision Retraining, Patient/Family Education, Discharge Planning Other Treatment Recommendations and Next ACL/SLUMS, shower Treatment Focus Discharge Recommendations OT Discharge Recommendations SNF vs Acute Rehab Home Equipment Needs FWW Transportation Needs at Discharge Private Vehicle,Wheelchair/ Cabulance
[2021-08-15] MEDS: PENICILLIN VK 250 MG TABLET 500 MG PO ×3 (12:57→21:39)
[2021-08-15] MEDS: INSULIN LISPRO 100 UNIT/ML 3ML VIAL SUBCUT (12:57)
--- NOTE | 2021-08-15 15:22 | CM.DPNOTE ---
Faxed initial referral packet per Elana to inpt rehab and received fax conf. Sara Cordova CM Asst.
[2021-08-15] MEDS: DEXTROSE 50 % IN WATER 25 GM/50 ML SYRINGE IV (17:11)
[2021-08-15 17:33] LABS: Glucose 37 mg/dL (80-110)
--- NOTE | 2021-08-15 19:29 | PC.NURSE ---
at 1615 pt reports feeling slightly nauseated but refused treatment. Patient is a&o x4 and very talkative. Patient reports at 1630 he believes his blood sugar is getting low. Patient's CBG was checked by aid and machine read Lower then 38. Patient was given 2 orange juices with sugar packets with peanut butter and crackers. Patient denies any hypoglycemic sxs. Call placed to Dr. Duarte Stat blood draw was ordered, NPH was held, but cont. with sliding scale insulin. Critical lab reported for 37, provider aware. 1/2 ampule of glucose given. B 30 min post admin. Patient cont. to deny sxs of hypoglycemia.
[2021-08-15] MEDS: NORTRIPTYLINE HCL 25 MG CAPSULE 50 MG PO (20:57)
[2021-08-15] MEDS: GABAPENTIN 300 MG CAPSULE PO (20:58)
[2021-08-15] MEDS: SENNOSIDES 8.6 MG TABLET PO (21:38)
[2021-08-15] MEDS: TRAZODONE 50 MG TABLET PO (21:39)
[2021-08-16] VITALS (10 sets, daily range): BP systolic 105–137; BP diastolic 63–76; PULSE 59–80; RESP 16; TEMP 36–36.8; O2SAT 93–97
[2021-08-16 00:44] LABS: UR Morphine/Opiate cutoff 300 Negative (Negative); Ur Creatinine 20 (Normal); Ur Specific Gravity 1.015 (Normal); Urine Amphetamines Negative (Negative); Urine Barbiturates Negative (Negative); Urine Cocaine Negative (Negative); Urine MDMA Negative (Negative); Urine Methamphetamines Negative (Negative); Urine Phencyclidine Negative (Negative); Urine Tetrahydrocannabinol Negative (Negative); Urine pH 5 (Normal)
[2021-08-16 00:45] LABS: Urine Benzodiazepines Negative (Negative); Urine Methadone Negative (Negative); Urine Oxycodone Positive (Negative); Urine Tricyclic Antidepressant Positive (Negative)
[2021-08-16] MEDS: PANTOPRAZOLE DR 40 MG TABLET PO (06:13)
--- NOTE | 2021-08-16 08:13 | PM.PN.1 ---
Subjective Subjective Date Patient Seen: 08/16/21 Time Patient Seen: 08:13 Interval history: Patient asleep this morning. I will come up. Low bit of slurred speech that rapidly resolved once he became more awake Struggle with some hypoglycemia yesterday including a low of 87. His evening dose insulin was held Was seen by PT an OT both of whom recommend either custodial placement or inpatient rehabilitation Struggle to walk with a walker but was able to do so. No issues from speech therapy Blood pressure has been well controlled. No dysrhythmias on telemetry Exam Vital Signs (past 8 hours): - 08/16/21 00:30 08/16/21 04:14 Temperature 97.6 F 97.5 F L Pulse Rate 59 L 72 Respiratory Rate 16 16 Blood Pressure 129/67 137/76 Pulse Oximetry 97 95 Oxygen Delivery Method Room Air Oxygen Flow Rate 0 Objective Labs Result Diagrams: 08/15/21 01:15 08/15/21 17:05 Labs: Laboratory Results - last 24 hr 08/15/21 08/16/21 17:05 00:15 Glucose 37 L* U Opiates 300ng/mL cut Negative Ur Oxycodone Screen Positive H Urine Methadone Screen Negative Ur Barbiturates Screen Negative U Tricyclic Antidepress Positive H Ur Phencyclidine Scrn Negative Ur Amphetamines Screen Negative U Methamphetamines Scrn Negative Ur MDMA Scrn (Ecstasy) Negative U Benzodiazepines Scrn Negative Urine Cocaine Screen Negative U Marijuana (THC) Screen Negative [facility] Medical History Automatic implantable cardiac defibrillator in situ (~07/2019) Degeneration of intervertebral disc of cervical region Diabetic peripheral neuropathy (07/25/15) Essential hypertension 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 Weakness-at this point I have to assume CVA is the source of his weakness. No evidence of an infectious process or other abnormality noted. Continue with skilled therapies and I agree patient would certainly benefit from placement in inpatient rehab verses maybe as a 2nd choice custodial. 2. Diabetes-patient with rather dramatic hypoglycemia here despite the fact that I reduced his insulin dose from his home dose. I think this illustrates the degree of dietary indiscretion patient has at home. While the concept does not surprising the degree of hypoglycemia despite cutting back on insulin is fairly surprising. I further reduced his insulin to 50% of his normal home doses and we will continue to monitor carefully. 3. Hypertension-patient's blood pressure very well controlled no active issues here no change in medication 4. GI-patient continues to report no active GI symptoms. Continue with proton pump inhibitors 5. Dental infection-continue with oral penicillin Overall patient is stable I do believe he has probably had progression of a stroke the maybe was in more of a stuttering fashion causing his global weakness at this point. Do not have a different etiology at this point. Continue to work with skilled therapies and work on placement either to custodial or in-patient rehab unless there some sort of dramatic improvement in his functional ability through the course of the next 24-48 hours Note: Greater than 30 minutes total time was spent on day of service, evaluating the patient on the floor, including examining the patient, discussing clinical course with clinical and nursing staff, reviewing clinical course in the computer, preparing documentation and writing orders for continued management of care, discussing status with family as appropriate, reviewing plans for the next 24 hours with both patient/family and nursing staff as appropriate. Time Spent With Patient Critical Care time: I spent a total of [] minutes of critical care time on this patient's care today; this time is exclusive of procedural time.
[2021-08-16] MEDS: TAMSULOSIN 0.4 MG CAPSULE PO (08:48)
[2021-08-16] MEDS: METFORMIN XR 500 MG TABLET 1000 MG PO ×2 (08:48→21:00)
[2021-08-16] MEDS: PENICILLIN VK 250 MG TABLET 500 MG PO ×4 (08:48→20:57)
[2021-08-16] MEDS: ENOXAPARIN 40 MG/0.4 ML SYRINGE SUBCUT (08:48)
[2021-08-16] MEDS: CLOPIDOGREL 75 MG TABLET PO (08:48)
[2021-08-16] MEDS: LOSARTAN 50 MG TABLET 100 MG PO (08:48)
[2021-08-16] MEDS: ATORVASTATIN 20 MG TABLET PO (08:48)
[2021-08-16] MEDS: MAGNESIUM OXIDE 400 MG TABLET PO (08:49)
[2021-08-16] MEDS: OXYCODONE IR 5 MG TABLET PO ×3 (08:49→20:54)
[2021-08-16] MEDS: AMLODIPINE 5 MG TABLET PO (08:49)
[2021-08-16] MEDS: ASPIRIN EC 325 MG TABLET PO (08:49)
[2021-08-16] MEDS: SPIRONOLACTONE 25 MG TABLET PO (08:50)
[2021-08-16] MEDS: carvediloL 12.5 MG TABLET 50 MG PO ×2 (08:50→20:55)
--- NOTE | 2021-08-16 10:47 | DIET.PN1 ---
Dietary Progress Note [facility] Retail Pharmacist to see patient today for consult. Ht: 170.18 cm Wt: 90 kg BMI: 31.1 UBW: Last BM: 08/15/21 (08/15/21 16:00) MNA: 9 Ashok Score: 22 Diet: 08/15/21 Breakfast Carbohydrate Consistent Diet Diet Modifications: Carbohydrate level: Large (4 CHO) Bedtime snack: Yes Nutrition Percent Meal Consumed 100% 08/16/21 10:29 Percent Meal Consumed 100% 08/15/21 18:22 Percent Meal Consumed 100% 08/15/21 09:42 Labs: RBC 4.30 X10^6/uL (4.5-5.9) L 08/15/21 01:15 Hgb 13.3 g/dL (13.5-17.5) L 08/15/21 01:15 Hct 40.2 % (41-53) L 08/15/21 01:15 Creatinine 1.24 mg/dL (0.66-1.25) 08/15/21 01:15 Electronically Signed by: Kiki Otoole 08/16/21 10:47 Clinical Diet[address] [address]
--- NOTE | 2021-08-16 11:14 | OT.IP.TRT ---
Current Diagnoses Cerebral infarction, unspecified (08/15/21) Occupational Therapy Treatment Note M2 OT-IP Current Condition Start: 08/15/21 14:01 Freq: Status: Active Protocol: Document 08/15/21 14:02 [facility] (Rec: 08/15/21 14:30 [facility] [id number]) Occupational Therapy Current Condition Current Condition Evaluation Date 08/15/21 Treatment Diagnosis CVA, decreased mobility Diagnosis Onset Date 08/15/21 M3 OT- IP Subjective and Pain Start: 08/15/21 14:01 Freq: Status: Active Protocol: Document 08/16/21 12:21 [facility] (Rec: 08/16/21 12:33 [facility] [id number]) OT- Subjective Occupational Therapy Visit Type Type Treatment Note Visit Start Time 10:25 Visit Stop Time 11:14 Total Visit Minutes 49 Occupational Therapy Visit Comments Patient Comments Pt agreed to shower. Patient/Caregiver Goals Pt wanting to go home to care for elderly pets but realizes that he is unsteady on his feet. OT Pain Assessment Pain When Pain Assessed At Rest Pain Present Pain Present Denied Pain M4 OT- IP ADL's Start: 08/15/21 14:01 Freq: Status: Active Protocol: Document 08/16/21 12:21 [facility] (Rec: 08/16/21 12:33 [facility] [id number]) OT [id number] Comments OT Self-Feeding Comments Not at meal time. OT ADL-Grooming Comments OT Grooming Comments NOt performed. OT ADL-Dressing General Eval Lower Body Dressing Ability Contact Guard Assistance Comments OT Dressing Comments CGA for balance while donning the brief over his hips. Pt having to sit initially to don his clothing. OT ADL-Toileting General Evaluation Toileting Ability Independent OT ADL-Bathing Bathing Type Bathing Type Shower General Evaluation Bathing Ability Minimal Assistance Areas Needing Assistance Wash/Dry Back Comments OT Bathing Comments Pt having to use grab bar for some steadying while washing pericare needs. Pt gets into his tub for bathes at home. M5 OT- IP IADL's Start: 08/15/21 14:01 Freq: Status: Active Protocol: Document 08/15/21 14:02 [facility] (Rec: 08/15/21 14:30 [facility] [id number]) OT-Instrumental Activities of Daily Living Deficits IADL Deficits Identified Deficits Home Safety Awareness Awareness of Need for Assistance at Home Good Awareness Ability to Problem Solve Emergency Able to Problem Solve Situations Medication Management Medication Management Comments Pt states has multiple pill bottles that he lines up and take his medications at home. Money Management Money Management Comments Pt states does automatic bill payment. Meal Preparation Meal Preparation Comments Pt states mainly just microwaves his meals. Director Quality Assurance Director Quality Assurance Comments At this time due to his decreased static and dynamic balance, pt will need assist for IADL needs as pt is a high risk of falls at this time. Driving Driving Comments Suggested not at this time. M6 OT- IP Functional Cognition Start: 08/15/21 14:01 Freq: Status: Active Protocol: Document 08/16/21 12:21 [facility] (Rec: 08/16/21 12:33 [facility] [id number]) Cognitive Factors Limiting Selfcare Function Cognitive Ability Level of Alertness Alert Patient Orientation Name,Age,Birthday,Month,Date, Year,Day of Week,Place, Situation Attention Span Ability Capable of Focused Attention, Capable of Sustained Attention Ability to Follow Commands Able to Follow Multi-Step Commands Problem Solving Ability Needs Assist to Identify Solutions Cognitive Comments Cognitive Assessment Comments Pt needing assist to help figure out how to turn off the water of the shower and also needing cues how to adjust the 4ww handle height. Pt trying to raise the handle higher versus lowering it. To continue to assess pt for higher level problem solving needs. M7 OT- IP Mobility and Balance Start: 08/15/21 14:01 Freq: Status: Active Protocol: Document 08/16/21 12:21 [facility] (Rec: 08/16/21 12:33 [facility] [id number]) OT-Transfer Assessment Sit to and From Stand Sit to and from Stand Standby Assistance Transfers Transfer Ability Contact Guard Assistance, Minimal Assistance Technique Transfer Destination Bed,Chair,Shower Stall,Toilet Transfer Technique Stand Step Pivot Devices Transfer Assistive Devices None,Gait Belt,Front Wheeled Walker,4 Wheeled Walker Comments Mobility Comments Pt still lean to the left with FWW and 4ww. Pt states feel the 4ww in too unsteady for him. Pt will need to have assist to be able to carry items and assist to take care of his pets if going home. Pt needing DAREN to take a few steps without the FWW. OT- Gait Assessment Comments Gait Ability Comments CGA with FWW especially when he tires. OT- Balance Assessment Sitting Balance and Reactions Static Sitting Balance Ability Normal Dynamic Sitting Balance Ability Good Standing Balance and Reactions Static Standing Balance Ability Fair Dynamic Standing Balance Ability Poor M8 OT- IP Objective Assessments Start: 08/15/21 14:01 Freq: Status: Active Protocol: Document 08/15/21 14:02 [facility] (Rec: 08/15/21 14:30 [facility] [id number]) OT Gross Range of Motion Upper Extremity Range of Motion Assessment Within Functional Limits OT Strength Upper Extremity Strength Assessment Left Impaired Shoulder 4-/5 Elbow 4-/5 Hand 4/5 Comments Strength Comments RUE 4/5 OT- Coordination Assessment Upper Extremity Finger to Nose Test Within Functional Limits Comments Coordination Comments Right hand 25 seconds for 9 hole peg approx 75% for his age and Left hadn approx 25% for his age. Pt states has difficulty with buttons and zippers with his hands. OT-Muscle Tone Assessment Muscle Tone WNL Yes OT Sensation Assessment Comments Summary Comments Intact for sensation however increased time andn processing for left arm kinesthesia and proprioception. M9 OT- IP Assessment and Plan Start: 08/15/21 14:01 Freq: Status: Active Protocol: Document 08/16/21 12:21 [facility] (Rec: 08/16/21 12:33 [facility] [id number]) OT Summary Assessment and Plan Potential Rehabilitation Potential Excellent Analytic Complexity at Evaluation Moderate Summary OT Impairments Balance,Coordination, Functional Cognition, Functional Mobility,Grooming, Dressing,Toileting,Bathing, Toilet Transfers,Shower Transfers Progress Towards Goals Progressing Toward Goals Assessment Summary Pt able to tolerate showering today but still having difficulty with dynamic balance and if going home would be a high fall risk to be able to take his dog out, do laundry, get his mail, etc... Pt now relies on the FWW for balance. Pt still needing some cues for high level problem solving. Pt would benefit from short acute rehab stay versus skilled rehab at this time. Goals Self-Feeding Goal Independent Grooming Goal Independent Dressing Goal Independent Toileting Goal Independent Bathing Goal Independent Toilet Transfer Goal Independent Shower Transfer Goal Independent Days to Meet Goals 14 Frequency of Treatment Frequency Of Treatment Once a Day Treatment Plan OT Treatment Plan ADL Training,Functional Cognition Training,Functional Mobility,Vision Retraining, Patient/Family Education, Discharge Planning Other Treatment Recommendations and Next ACL, redo Voltaire Making Part B Treatment Focus Discharge Recommendations OT Discharge Recommendations SNF vs Acute Rehab Home Equipment Needs FWW Transportation Needs at Discharge Private Vehicle,Wheelchair/ Cabulance
--- NOTE | 2021-08-16 11:56 | PT.IPTN ---
Current Diagnoses Cerebral infarction, unspecified (08/15/21) Physical Therapy Treatment Note M2 PT-IP Current Condition Start: 08/15/21 11:57 Freq: NEEDED Status: Active Protocol: Document 08/15/21 10:47 [facility] (Rec: 08/15/21 12:09 [facility] [id number]) Physical Therapy Current Condition Current Condition Evaluation Date 08/15/21 Treatment Diagnosis hypoglycemia; CVA; weakness Onset Date 08/15/21 Precautions Other Precautions falls M3 PT-IP Subjective Start: 08/15/21 11:57 Freq: NEEDED Status: Active Protocol: Document 08/16/21 11:36 [facility] (Rec: 08/16/21 13:09 [facility] [id number]) Subjective Physical Therapy Visit Type Type Treatment Note Visit Start Time 11:36 Visit Stop Time 11:56 Total Visit Minutes 20 Number of ESTIMATOR BINDING Visits 1 Physical Therapy Visit Comments Patient Comments agreeablet to do PT Therapy Pain Assessment Pain When Pain Assessed At Rest Pain Present Pain Present Denied Pain M4 PT-IP Mobility and Gait Start: 08/15/21 11:57 Freq: NEEDED Status: Active Protocol: Document 08/16/21 11:36 [facility] (Rec: 08/16/21 13:09 [facility] [id number]) PT-Transfer Assessment Sit to and From Stand Sit to and from Stand Contact Guard Assistance,1 Person Assistance,Use of Upper Extremities Equipment Transfer Assistive Device Gait Belt,Front Wheeled Walker Orthotic/Prosthetic Devices or Brace: No Transfers Transfer Destination Chair Transfer Technique ambulated using FWW Transfer Ability Level of Assist Standby Assistance,Contact Guard Assistance,1 Person Assistance,Use of Upper Extremities Comments Mobility Comments Pt stood from chair CGA and performed standing balance exercises. Pt ambulated in hills to therapy stairs climbing three stairs three times with bilateral hand rails SBA. Pt ambulated around [facility] before returning to room. Pt ambulated in room w/o AD CGA with unsteady gait and LOB, pt will benefit from continued use of FWW, pt states his neighbor Brad will get a walker from [facility] tomorrow. Pt returned to chair. Pt left in chair with all needs within reach. Gait Assessment Gait Gait Assistance Required: Standby Assistance,Contact Guard Assist,1 Person Assist Distance (Feet) 300 Able to Maintain Weight Bearing Status Yes During Gait Assistive Devices Assistive Device Gait Belt,Front Wheeled Walker Orthotic/Prosthetic Devices or Brace: No Gait Deviations General Gait Pattern Ataxic,Decreased Stride Length ,Decreased Feet Clearance, Narrow Based Gait Factors Limiting Gait Function Factors Limiting Gait Function Decreased Activity Tolerance, Decreased Sensation,Decreased Strength,Poor Balance,Poor Safety Awareness Comments Gait Comments Pt requiring SBA for gait with FWW. W/O AD pt was unsteady and would continue to benefit from use of FWW. Stair Climbing Assessment Evaluation Level of Assist On Stairs Standby Assistance,1 Person Assistance Devices Stair Climbing Assistive Devices Left Railing,Right Railing Technique/Endurance Stair Climbing Direction Ascend and Descend Stair Climbing Technique Step Over Step Number of Steps Climbed 3 Stair Climbing Set # Repetitions (reps) 3 Comments Stair Climbing Comments Pt able to climb steps SBA with use of bilateral rails. Pt kitchen is downstairs and bedroom and living room are upstairs, pt would benefit from FWW on each floor of home . PT-Balance Assessment Sitting Balance and Reactions Static Sitting Balance Ability Good Dynamic Sitting Balance Ability Good Standing Balance and Reactions Static Standing Balance Ability Fair Dynamic Standing Balance Ability Poor Device Used FWW M5 PT-IP Objective Assessments Start: 08/15/21 11:57 Freq: NEEDED Status: Active Protocol: Document 08/15/21 10:47 [facility] (Rec: 08/15/21 12:09 [facility] [id number]) Orientation Orientation/Cognition Level of Alertness Alert Orientation Name,Place,Situation Language Function Ability No Deficits Noted Safety Awareness Understands Safety Issues Memory Description No Deficits Noted Gross Range of Motion Lower Extremity ROM Assessment Within Functional Limits Strength Comments Strength Comments L hip: 3+/5 L knee: 4-/5 R hip 4-/5 R knee: 3+/5 Sensation Assessment Sensation Gross Sensation Right LE Impaired,Left LE Impaired Light Touch Impaired Proprioception (Position) Impaired Sensation Description Burning Comments Sensation Comments chronic neuropathyon B feet with burning sensation Muscle Tone Muscle Tone WNL Yes M6 PT-IP Treatment Start: 08/15/21 11:57 Freq: NEEDED Status: Active Protocol: Document 08/16/21 11:36 [facility] (Rec: 08/16/21 13:09 [facility] [id number]) Physical Therapy Treatment Other Treatments Other Treatment Performed Standing Balance: WBOS/NBOS EO ,EC Semi tandem stance EO, pt unable to stand tandem w/o UE support M7 PT-IP Assessment and Plan Start: 08/15/21 11:57 Freq: NEEDED Status: Active Protocol: Document 08/16/21 11:36 [facility] (Rec: 08/16/21 13:09 [facility] [id number]) PT Summary Assessment and Plan Potential Rehabilitation Potential Fair Status of Condition at Evaluation Evolving Summary Impairments Pain,ROM,Strength,Balance, Coordination,Sensation,Tone, Cognition,Bed Mobility, Transfers,Gait,Activity Tolerance Progress Towards Goals Progressing Toward Goals,Slow Progress due to Activity Tolerance Assessment Summary Pt improving with all mobility able to ambulate in hills ~ 300ft w/FWW/SBA but unable to ambulate SBA w/o AD. Pt able to climb stairs SBA with bilateral rails and would benefit from FWW on both floors of home for safety. Pt will require 24/7 assist for safety and will benefit from SNF rehab before returning home. Goals Bed Mobility Goal Independent Transfer Goal Standby Assistance,Front Wheeled Walker Gait Goal Standby Assistance,Front Wheel Walker Gait Distance 150 Other Goals ambulation without AD 150 ft SBA up/down 12 steps R rail SBA Days to Meet Goals 10 Frequency of Treatment Frequency Of Treatment Once a Day Treatment Plan Physical Therapy Treatment Plan Bed Mobility Training,Transfer Training,Gait Training, Therapeutic Exercise,Balance Retraining,Discharge Planning, Hot or Cold Pack,Neuromuscular Re-ed,Coordination Retraining Precautions Other Precautions falls Recommendations To Nursing Amount of Assist Needed 1 Person Assist Discharge Recommendations PT Discharge Recommendations SNF Rehab Transportation Needs at Discharge Private Vehicle,Wheelchair/ Cabulance
--- NOTE | 2021-08-16 11:57 | CM.DPC ---
Addendum entered by Yari Kapadia R.N. 08/16/21 13:57: Day at [facility] has received referral and is reviewing. She will update discharge planning if she can accept. Original Note: DCP Cont: Checked in with patient this morning. Mentioned skilled rehab before going home. Let him know that [facility] next door to the hospital can accept him, there is also a referral sent over to [facility]. Patient is reluctant to go to a skilled facility. He has obligations to his pets, and has to cancel a trip that he was going to do. Encouraged patient to consider skilled for safety purposes, for he lives alone, and would benefit with therapy needs. Have already spoken to Sarah at [facility] who confirmed acceptance. [facility], she will review patient as well. P: DCP to continue to follow for any needs. If patient goes to [facility], he would be eligible by Medicare standards by Friday. If he goes to [facility], and he is accepted, they could possibly take him tomorrow, but patient would have to be willing to go. Other option for him is home health P.T. Yari Kapadia RN/Repair Mechanic
[2021-08-16] MEDS: INSULIN NPH/REG 70-30 100 UNIT/ML 3ML VIAL 70 UNIT SUBCUT ×2 (12:43→21:13)
[2021-08-16] MEDS: INSULIN LISPRO 100 UNIT/ML 3ML VIAL SUBCUT ×2 (12:43→17:24)
--- NOTE | 2021-08-16 16:02 | DIET.PN1 ---
Dietary Progress Note Assessment: 70 y/o M c diabetes. Hypoglycemia of 38 mg/dL yesterday. Most fastings since admit <90 mg/dL. Glipizide was discontinued when admitted and NPH has been recently decreased by 50% appropriately. Elpidio reports a meal plan with mostly 30-60g CHO per meal plus 15-45g CHO for snacks at home. Given recent lows, he may be under reporting his intake-- endorses the possibility of eating more carbs at home than at the hospital. Currently on a 60g per meal diet here and has been having low blood sugars. Reports hypoglycemia 1-2 x per month at home. States he checks his blood sugars 3-4 x per day and readings often in range 100-150 mg/dL. Recent HgA1c 7.2% Seems likely that his carb intake and frequency is lower since admitted, resulting in hypoglycemia while admitted. Elpidio does not seem open to discussing this further today. He would like some rest before dinner. States he last had DM ed in the late . Was diagnosed in 1997. May be open to OP diabetes education refresher. Usual Diet Recall: 11a: breakfast bowl pre-made 1p: small bag chips or fruit 3p: sandwich with apple or orange 530p: frozen dinner or cooks eggs wit potatoes, sometimes pasta dinner HS snack: pretzels, depending on BG maybe a sandwich Beverages: water, unsweetened iced tea, ETOH 1-2 x per week Recent Blood glucose: 08/15: 87, 71, 109, 38, 87, 101 08/16: 80, 82, 204 H Current DM medications: Metformin 1000 mg BID NPH 70/30 70 u BID Lispro per protocol Home DM medications: NPH 70/30 140 u BID Metformin 1000 mg BID Glipizide 10 mg BID Ht: 170.18 cm Wt: 90 kg BMI: 31.1 Last BM: 08/15/21 (08/15/21 16:00) MNA: 9 Ashok Score: 22 Diet: 08/15/21 Breakfast Carbohydrate Consistent Diet Diet Modifications: Carbohydrate level: Large (4 CHO) Bedtime snack: Yes Nutrition Percent Meal Consumed 100% 08/16/21 14:03 Percent Meal Consumed 100% 08/16/21 10:29 Percent Meal Consumed 100% 08/15/21 18:22 Percent Meal Consumed 100% 08/15/21 09:42 Labs: RBC 4.30 X10^6/uL (4.5-5.9) L 08/15/21 01:15 Hgb 13.3 g/dL (13.5-17.5) L 08/15/21 01:15 Hct 40.2 % (41-53) L 08/15/21 01:15 Creatinine 1.24 mg/dL (0.66-1.25) 08/15/21 01:15 Nutrition Diagnosis: Predicted excessive CHO intake at home r/t stage of change and/or needing DM/nutrition education refresher aeb insulin dose from home causing hypoglycemia on 60g meal plan while admitted. Interventions: Discussed potential cause of lows and OP DM education as an option. Provided him my card. Provided him handout discussing how to treat a low blood sugar at home. Monitoring/Evaluations: BG, PO Electronically Signed by: Jhoana Knight 08/16/21 16:02 Clinical Dietitian [address] [address]
--- NOTE | 2021-08-16 17:56 | PC.NURSE ---
1645-Patient is in bed resting. He is alert and oriented to person, place, situation, date of and month. NIH is 0. He has slight drooping of the lower left lip which he reports was due to his prior stroke in July. He did report facial twitching in the left check, which is new as of earlier this week. He reports no pain in his teeth or anywhere else. Lung sounds are clear and equal throughout all bilateral schneider. Patient reports an AICD. Equal and strong radial and posterior tibial pulses. This student nurse and RN Shania assisted the patient up to the bathroom. Gait belt was applied. He walked without the use of a FWW and was steady on his feet with no apparent difficulty in ambulation. Oral care was performed independently and he went to the chair for dinner. Call light is within in reach.
--- NOTE | 2021-08-16 19:41 | PC.NURSE ---
Addendum entered by Shania Delgado R.N. 08/16/21 22:39: Majority of shift spent up in recliner watching television. Up to bathroom with standby assistance. Steady gait. No change in neurological status this evening shift. Returned to bed and bed alarm set. Has refused scd's. Dental pain managed with medications as per emar. Original Note: Pt awake, alert resting quietly in bed @ beginning of shift. NIH zero as pt reports left visual field deficit and left facial mouth droop present following stroke five weeks ago, not new with this event/hospitalization. Pt demonstrates steady gait when ambulatory to bathroom with staff attending and witnessing. Up in recliner for evening meal. Appropriate mentation and conversation. No focal deficits noted. Provides own oral care @ sink prior to dinner. Telemetry in place.
[2021-08-16] MEDS: GABAPENTIN 300 MG CAPSULE PO (20:54)
[2021-08-16] MEDS: NORTRIPTYLINE HCL 25 MG CAPSULE 50 MG PO (20:54)
[2021-08-16] MEDS: SENNOSIDES 8.6 MG TABLET PO (20:54)
[2021-08-16] MEDS: TRAZODONE 50 MG TABLET PO (20:57)
[2021-08-16] MEDS: SODIUM CHLORIDE 0.9% FLUSH 10 ML IV (20:58)
[2021-08-17] VITALS (12 sets, daily range): BP systolic 98–135; BP diastolic 48–79; PULSE 64–85; RESP 14–18; TEMP 36.1–36.3; O2SAT 92–97
[2021-08-17] MEDS: DEXTROSE 50 % IN WATER 25 GM/50 ML SYRINGE IV (03:44)
[2021-08-17] MEDS: OXYCODONE IR 5 MG TABLET PO ×3 (03:56→20:12)
--- NOTE | 2021-08-17 07:31 | PC.NURSE ---
At 0342 pt glucose checked, returned 32 mg/dL. Asymptomatic. Given OJ and amp of d50 per protocol. Rechecked at 0348, 258 mg/dL. Both machines testing WNL, recalibrated. Rechecked at 0412, GLU 157 mg/dL. Pt remains asymptomatic.
--- NOTE | 2021-08-17 07:51 | CM.DPNOTE ---
Faxed [facility] 08/16 PN and received fax conf. Sara Cordova CM Asst.
--- NOTE | 2021-08-17 08:33 | P.PN_ITS ---
Subjective Subjective Date Patient Seen: 08/17/21 Time Patient Seen: 08:33 Interval history: Patient reports feeling much stronger. He has been up with out a walker in his room he says. Had low blood sugar again overnight. 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 alondra/anabaptism: Islam travel history: recent leisure activities: music, reading and other (Hiking.) Smoking Status: Never smoker quit status: quit date established second hand exposure: No alcohol intake: current substance use type: does not use Assessment & Plan Assessment & Plan narrative: 1. CVA-continue with dual anti-platelet therapy and skilled therapies regarding his weakness etcetera. By report he is much improved. I hope that is true and if so he would be okay to go home with home health services. If he is not then he will need to think about either long-term placement for rehabilitation or true inpatient rehab. Both these options are still open to him. Will see what physical therapy and occupational therapy think about his progress today. 2. Diabetes-obviously patient's diet is nothing like a diabetic diet at home. That is why he is on such tremendous amounts of insulin as well as the oral meds. I have cut back his insulin significantly here to better match what his caloric intake looks like. We will decrease evening insulin because of the overnight hypoglycemia on 2 occasions now 3. Cardiomyopathy-stable no active issues their 4. Hypertension-stable no active issues there continue current meds 5. Dental infection-continue with penicillin including upon discharge Overall patient does appear to be improved. He looks like he is better feels stronger etcetera. If that proves true when working with physical and occupational therapy today than he likely be able to go home with home health services potentially as early as tomorrow the 18 of August Note: Greater than 30 minutes total time was spent on day of service, evaluating the patient on the floor, including examining the patient, discussing clinical course with clinical and nursing staff, reviewing clinical course in the computer, preparing documentation and writing orders for continued management of care, discussing status with family as appropriate, reviewing plans for the next 24 hours with both patient/family and nursing staff as appropriate. Time Spent With Patient Critical Care time: I spent a total of [] minutes of critical care time on this patient's care today; this time is exclusive of procedural time.
[2021-08-17] MEDS: carvediloL 12.5 MG TABLET 50 MG PO ×2 (09:02→20:43)
[2021-08-17] MEDS: CLOPIDOGREL 75 MG TABLET PO (09:02)
[2021-08-17] MEDS: ATORVASTATIN 20 MG TABLET PO (09:02)
[2021-08-17] MEDS: MAGNESIUM OXIDE 400 MG TABLET PO (09:02)
[2021-08-17] MEDS: SPIRONOLACTONE 25 MG TABLET PO (09:02)
[2021-08-17] MEDS: LOSARTAN 50 MG TABLET 100 MG PO (09:02)
[2021-08-17] MEDS: TAMSULOSIN 0.4 MG CAPSULE PO (09:03)
[2021-08-17] MEDS: AMLODIPINE 5 MG TABLET PO (09:03)
[2021-08-17] MEDS: PANTOPRAZOLE DR 40 MG TABLET PO (09:03)
[2021-08-17] MEDS: METFORMIN XR 500 MG TABLET 1000 MG PO ×2 (09:03→20:43)
[2021-08-17] MEDS: PENICILLIN VK 250 MG TABLET 500 MG PO ×4 (09:03→20:43)
[2021-08-17] MEDS: ENOXAPARIN 40 MG/0.4 ML SYRINGE SUBCUT (09:03)
[2021-08-17] MEDS: ASPIRIN EC 325 MG TABLET PO (09:03)
[2021-08-17] MEDS: INSULIN NPH/REG 70-30 100 UNIT/ML 3ML VIAL 70 UNIT SUBCUT (09:18)
[2021-08-17] MEDS: SODIUM CHLORIDE 0.9% FLUSH 10 ML IV ×2 (09:21→20:46)
--- NOTE | 2021-08-17 11:47 | CM.DPC ---
Addendum entered by Yari Kapadia R.N. 08/17/21 15:38: Spoke to Day at [facility], and she confirmed that they can accept patient. She is not sure if they can accept over the week-end due to staffing, but hope to have this resolved, and may be able to accept tomorrow. Patient is not wanting to go to skilled rehab or acute inpatient due to his concerns over his pets at home. Will keep referral in case patient changes his mind tomorrow. Will need to arrange transportation for patient if he does go to [facility]. Addendum entered by Yari Kapadia R.N. 08/17/21 12:37: Went ahead and completed a PASSR in case patient changes his mind and will go to [facility]. Will see how he does with P.T. today. Original Note: DCP Cont: Spoke to patient today about longterm/Acute Inpatient Rehab. Patient indicated, he does not want to go to any rehab, he wants to go home. [facility] could have taken him tomorrow. He is semi-opened to home health. He has not had home health before, and would have no preferences upon agencies. [facility] is on the calendar for today. Had Dr Guzman sign face to face today. P: Will go ahead and fax over orders to [facility], and will update Shahida at [facility] about discharge tomorrow. Will send over H&P, P.T. notes, orders and face to face. Upon discharge, they will just need DC Summary. Did get in touch with Shahida at [facility] and let her know about referral. P: Patient will discharge with [facility] most likely tomorrow, for he refuses longterm or acute inpatient rehab. He has mentioned, he has a neighbor to look in on him. [facility] can still accept him as well. Yari Kapadia RN/[employer]
--- NOTE | 2021-08-17 11:50 | OT.IP.TRT ---
Current Diagnoses Cerebral infarction, unspecified (08/15/21) Occupational Therapy Treatment Note M2 OT-IP Current Condition Start: 08/15/21 14:01 Freq: Status: Active Protocol: Document 08/15/21 14:02 [facility] (Rec: 08/15/21 14:30 [facility] [id number]) Occupational Therapy Current Condition Current Condition Evaluation Date 08/15/21 Treatment Diagnosis CVA, decreased mobility Diagnosis Onset Date 08/15/21 M3 OT- IP Subjective and Pain Start: 08/15/21 14:01 Freq: Status: Active Protocol: Document 08/17/21 11:10 [facility] (Rec: 08/17/21 13:32 [facility] [id number]) OT- Subjective Occupational Therapy Visit Type Type Treatment Note Visit Start Time 11:10 Visit Stop Time 11:50 Total Visit Minutes 40 Occupational Therapy Visit Comments Patient Comments Pt wanting to go home and not open to going to skilled rehab or acute rehab if authorized. Pt also not keen on having any home health at this time as well. Patient/Caregiver Goals To go home. OT Pain Assessment Pain When Pain Assessed At Rest Pain Present Pain Present Denied Pain M5 OT- IP IADL's Start: 08/15/21 14:01 Freq: Status: Active Protocol: Document 08/15/21 14:02 [facility] (Rec: 08/15/21 14:30 [facility] [id number]) OT-Instrumental Activities of Daily Living Deficits IADL Deficits Identified Deficits Home Safety Awareness Awareness of Need for Assistance at Home Good Awareness Ability to Problem Solve Emergency Able to Problem Solve Situations Medication Management Medication Management Comments Pt states has multiple pill bottles that he lines up and take his medications at home. Money Management Money Management Comments Pt states does automatic bill payment. Meal Preparation Meal Preparation Comments Pt states mainly just microwaves his meals. Data Processing Mechanic Data Processing Mechanic Comments At this time due to his decreased static and dynamic balance, pt will need assist for IADL needs as pt at risk of falls at this time. Driving Driving Comments Suggested not at this time. M6 OT- IP Functional Cognition Start: 08/15/21 14:01 Freq: Status: Active Protocol: Document 08/17/21 11:10 [facility] (Rec: 08/17/21 13:32 [facility] [id number]) Cognitive Factors Limiting Selfcare Function Cognitive Ability Level of Alertness Alert Patient Orientation Name,Age,Birthday,Month,Date, Year,Day of Week,Place, Situation Attention Span Ability Capable of Focused Attention, Capable of Sustained Attention Ability to Follow Commands Able to Follow One Step Commands Memory Description Short Term Impaired Safety Awareness Underestimates Need for Assistance Problem Solving Ability Needs Assist to Identify Solutions Executive Function Ability Unable to Remember Details Cognitive Tests ACL Pt scored 4.4 out of 6.0 which implies pt should live with someone who does a daily check on the environment and remove any safety hazzards and solves any new problems. Pt may be alone for part of the day with procedure to obtain assist as needed. May need daily medication provided and assist with finances. A score on 5.[address] Cognitive Comments Cognitive Assessment Comments Pt scored 163 second on [place] Making Part B which is slower than his 128 seconds in Friday which still implies which implies significant impairments for visual attention, task switching, speed of processing, executive functioning, and mental flexibility and suggested that pt not drive at this time. Pt having trouble to convert 2 minutes and 43 seconds into seconds and thought that 60 seconds were is a minute. During ACL, pt not recalling the directions and needing to point out his mistakes before pt able to make corrections. Pt agrees that he is not thinking as well but insistent that he will go home to take care of his elderly pets. M7 OT- IP Mobility and Balance Start: 08/15/21 14:01 Freq: Status: Active Protocol: Document 08/17/21 11:10 [facility] (Rec: 08/17/21 13:32 [facility] [id number]) OT-Transfer Assessment Sit to and From Stand Sit to and from Stand Independent Transfers Transfer Ability Standby Assistance Technique Transfer Destination Bed,Chair Devices Transfer Assistive Devices None,Gait Belt Comments Mobility Comments Pt SBA to close SBA to be able to walk without a device but occasionally leans to the left and able to self correct on level surfaces. Pt will still benefit from a device FWW/4ww for dynamic balance and to be able to help carry items. OT- Balance Assessment Sitting Balance and Reactions Static Sitting Balance Ability Normal Dynamic Sitting Balance Ability Normal Standing Balance and Reactions Static Standing Balance Ability Good Dynamic Standing Balance Ability Poor M9 OT- IP Assessment and Plan Start: 08/15/21 14:01 Freq: Status: Active Protocol: Document 08/17/21 11:10 [facility] (Rec: 08/17/21 13:32 [facility] [id number]) OT Summary Assessment and Plan Potential Rehabilitation Potential Excellent Analytic Complexity at Evaluation Moderate Summary OT Impairments Balance,Coordination, Functional Cognition, Functional Mobility,Grooming, Dressing,Toileting,Bathing, Toilet Transfers,Shower Transfers Progress Towards Goals Progressing Toward Goals Assessment Summary Pt still having difficulty with higher level cognitive needs however has improved with his mobility and able to walk without a device on level surfaces in the room with SBA , however still leans outside of his base of support at times. Pt still far from his baseline of completely independent with any devices. Pt insistent on going home and not wanting to go to skilled rehab or acute rehab. If pt going home suggest will benefit from / available assist and home health. Goals Dressing Goal Independent Toileting Goal Independent Bathing Goal Independent Toilet Transfer Goal Independent Shower Transfer Goal Independent OT-Other Goals All goals without a device used. Days to Meet Goals 14 Frequency of Treatment Frequency Of Treatment Once a Day Treatment Plan OT Treatment Plan ADL Training,Functional Cognition Training,Functional Mobility,Vision Retraining, Patient/Family Education, Discharge Planning Discharge Recommendations OT Discharge Recommendations Home with 24/ Assist Available,Home Health,SNF Rehab,Acute Rehab Home Equipment Needs FWW/4ww Transportation Needs at Discharge Private Vehicle,Wheelchair/ Cabulance
--- NOTE | 2021-08-17 12:15 | PT.IPTN ---
Current Diagnoses Cerebral infarction, unspecified (08/15/21) Physical Therapy Treatment Note M2 PT-IP Current Condition Start: 08/15/21 11:57 Freq: NEEDED Status: Active Protocol: Document 08/15/21 10:47 [facility] (Rec: 08/15/21 12:09 [facility] [id number]) Physical Therapy Current Condition Current Condition Evaluation Date 08/15/21 Treatment Diagnosis hypoglycemia; CVA; weakness Onset Date 08/15/21 Precautions Other Precautions falls M3 PT-IP Subjective Start: 08/15/21 11:57 Freq: NEEDED Status: Active Protocol: Document 08/17/21 11:56 [facility] (Rec: 08/17/21 12:36 [facility] [id number]) Subjective Physical Therapy Visit Type Type Treatment Note Visit Start Time 11:56 Visit Stop Time 12:15 Total Visit Minutes 19 Number of [place] Visits 2 Physical Therapy Visit Comments Patient Comments agreeablet to do PT Therapy Pain Assessment Pain When Pain Assessed At Rest Pain Present Pain Present Denied Pain M4 PT-IP Mobility and Gait Start: 08/15/21 11:57 Freq: NEEDED Status: Active Protocol: Document 08/17/21 11:56 [facility] (Rec: 08/17/21 12:36 [facility] [id number]) PT-Transfer Assessment Sit to and From Stand Sit to and from Stand Standby Assistance,1 Person Assistance Equipment Transfer Assistive Device None,Gait Belt Orthotic/Prosthetic Devices or Brace: No Transfers Transfer Destination Chair Transfer Technique Stand Step Pivot Transfer Ability Level of Assist Standby Assistance,1 Person Assistance Comments Mobility Comments Pt stood and GB donned. Pt ambulated in hills ~ 250ft w/o AD/CGA with initial LOB with turning right out of room but able to self correct. Pt able to climb stairs SBA with bilateral rails. Pt will benefit from use of FWW during mobility if home alone but would recommend / for safety at this time. Gait Assessment Gait Gait Assistance Required: Contact Guard Assist,1 Person Assist Distance (Feet) 250 Able to Maintain Weight Bearing Status Yes During Gait Assistive Devices Assistive Device None,Gait Belt Gait Deviations General Gait Pattern Ataxic,Decreased Stride Length ,Decreased Feet Clearance, Narrow Based Gait Factors Limiting Gait Function Factors Limiting Gait Function Decreased Activity Tolerance, Decreased Sensation,Decreased Strength,Poor Balance,Poor Safety Awareness Comments Gait Comments Pt requiring CGA for gait w/o AD and would benefit from use of FWW if home alone. Stair Climbing Assessment Evaluation Level of Assist On Stairs Standby Assistance,1 Person Assistance Devices Stair Climbing Assistive Devices Left Railing,Right Railing Technique/Endurance Stair Climbing Direction Ascend and Descend Stair Climbing Technique Step Over Step Number of Steps Climbed 3 Stair Climbing Set # Repetitions (reps) 3 PT-Balance Assessment Sitting Balance and Reactions Static Sitting Balance Ability Good Dynamic Sitting Balance Ability Good Standing Balance and Reactions Static Standing Balance Ability Fair Dynamic Standing Balance Ability Poor Device Used FWW M5 PT-IP Objective Assessments Start: 08/15/21 11:57 Freq: NEEDED Status: Active Protocol: Document 08/15/21 10:47 [facility] (Rec: 08/15/21 12:09 [facility] [id number]) Orientation Orientation/Cognition Level of Alertness Alert Orientation Name,Place,Situation Language Function Ability No Deficits Noted Safety Awareness Understands Safety Issues Memory Description No Deficits Noted Gross Range of Motion Lower Extremity ROM Assessment Within Functional Limits Strength Comments Strength Comments L hip: 3+/5 L knee: 4-/5 R hip 4-/5 R knee: 3+/5 Sensation Assessment Sensation Gross Sensation Right LE Impaired,Left LE Impaired Light Touch Impaired Proprioception (Position) Impaired Sensation Description Burning Comments Sensation Comments chronic neuropathyon B feet with burning sensation Muscle Tone Muscle Tone WNL Yes M6 PT-IP Treatment Start: 08/15/21 11:57 Freq: NEEDED Status: Active Protocol: Document 08/16/21 11:36 [facility] (Rec: 08/16/21 13:09 [facility] [id number]) Physical Therapy Treatment Other Treatments Other Treatment Performed Standing Balance: WBOS/NBOS EO ,EC Semi tandem stance EO, pt unable to stand tandem w/o UE support M7 PT-IP Assessment and Plan Start: 08/15/21 11:57 Freq: NEEDED Status: Active Protocol: Document 08/17/21 11:56 [facility] (Rec: 08/17/21 12:36 [facility] [id number]) PT Summary Assessment and Plan Potential Rehabilitation Potential Fair Status of Condition at Evaluation Evolving Summary Impairments Pain,ROM,Strength,Balance, Coordination,Sensation,Tone, Cognition,Bed Mobility, Transfers,Gait,Activity Tolerance Progress Towards Goals Progressing Toward Goals Assessment Summary Pt will benefit from use of FWW as pt requires CGA during ambulation w/o AD. Pt wants to return home and understands he would benefit from assist at home and need to use FWW. Pt states his neighbor will assist him in purchasing FWW and did not want one dispensed to him upon d/c. Pt will benefit from 26/05 assist and HH but pt does not want HH services. Goals Bed Mobility Goal Independent Transfer Goal Standby Assistance,Front Wheeled Walker Gait Goal Standby Assistance,Front Wheel Walker Gait Distance 150 Other Goals ambulation without AD 150 ft SBA up/down 12 steps R rail SBA Days to Meet Goals 10 Frequency of Treatment Frequency Of Treatment Once a Day Treatment Plan Physical Therapy Treatment Plan Bed Mobility Training,Transfer Training,Gait Training, Therapeutic Exercise,Balance Retraining,Discharge Planning, Hot or Cold Pack,Neuromuscular Re-ed,Coordination Retraining Precautions Other Precautions falls Recommendations To Nursing Amount of Assist Needed 1 Person Assist Discharge Recommendations PT Discharge Recommendations Home with 24/7 Assist Available,Home Health Transportation Needs at Discharge Private Vehicle
[2021-08-17] MEDS: INSULIN LISPRO 100 UNIT/ML 3ML VIAL SUBCUT (13:14)
--- NOTE | 2021-08-17 16:59 | DIET.PN1 ---
Dietary Progress Note Assessment: Another low last night <50 mg/dL. Low of 32 mg/dL at 342am today. Another low at 8am of 61 mg/dL. MAR indicates NPH after meals. May benefit from taking NPH prior to meals. NPH dose currently 70u BID. Discussed with Elpidio treatment of lows in detail today for home education. Also reviewed impact of diet on BG and amount of insulin he is needing. Reviewed how lifestyle changes could potentially decrease insulin needs and therefore amt he spends on insulin. Discussed the role of an HS snack prn, but not to eat to perpetually keep BG up. If inconsistencies continue with NPH, would likely benefit from Basal/bolus. Ht: 170.18 cm Wt: 90.5 kg BMI: 31.1 UBW: Last BM: 08/17/21 (08/17/21 13:00) MNA: 9 Ashok Score: 20 Diet: 08/15/21 Breakfast Carbohydrate Consistent Diet Diet Modifications: Carbohydrate level: Large (4 CHO) Bedtime snack: Yes Nutrition Percent Meal Consumed 100% 08/17/21 13:00 Percent Meal Consumed 75% 08/17/21 09:00 Percent Meal Consumed 100% 08/16/21 18:00 Percent Meal Consumed 100% 08/16/21 14:03 Percent Meal Consumed 100% 08/16/21 10:29 Percent Meal Consumed 100% 08/15/21 18:22 Labs: RBC 4.30 X10^6/uL (4.5-5.9) L 08/15/21 01:15 Hgb 13.3 g/dL (13.5-17.5) L 08/15/21 01:15 Hct 40.2 % (41-53) L 08/15/21 01:15 Creatinine 1.24 mg/dL (0.66-1.25) 08/15/21 01:15 Nutrition Diagnosis: Nutrition and food related knowledge deficit r/t high carb intake hx aeb 60g meals resulting in lows. Interventions: Hypoglycemia education, Diabetes education around carb intake and insulin needs, encouraged DM ed OP Monitoring/Evaluations: consult prn Electronically Signed by: Jhoana Knight 08/17/21 16:59 Clinical Dietitian [address] [id number]
[2021-08-17] MEDS: GABAPENTIN 300 MG CAPSULE PO (17:54)
[2021-08-17] MEDS: NORTRIPTYLINE HCL 25 MG CAPSULE 50 MG PO (20:43)
[2021-08-17] MEDS: TRAZODONE 50 MG TABLET PO (20:43)
[2021-08-18 00:43] VITALS: BP 141/51; PULSE 75; RESP 14; TEMP 36.1; O2SAT 95
--- NOTE | 2021-08-18 03:38 | PC.NURSE ---
Patient is alert and oriented with NIH of 0. Breath sounds CTA with RA sat of 95%. HRR with telemetry reading of SR w/1st degree AVB. Denies nausea. BT present and abdomen is soft. Voided per urinal; urine clear marjorie; denies dysuria, frequency or urgency. Is able to move himself in bed. Ambulated to bathroom with SBA and no assistive device; appears steady on feet and denies weakness. Declines to wear SCD's so reminded to ankle wave. Denied pain. Fall risk score is moderate and bed alarm is activated. CBG was 178.
[2021-08-18 05:44] VITALS: BP 139/66; PULSE 76; RESP 12; TEMP 36.3; O2SAT 95
[2021-08-18] MEDS: OXYCODONE IR 5 MG TABLET PO (05:50)
[2021-08-18] MEDS: PANTOPRAZOLE DR 40 MG TABLET PO (06:20)
[2021-08-18 07:35] VITALS: O2SAT 96
--- NOTE | 2021-08-18 08:58 | OT.IP.TRT ---
Current Diagnoses Cerebral infarction, unspecified (08/15/21) Occupational Therapy Treatment Note M2 OT-IP Current Condition Start: 08/15/21 14:01 Freq: Status: Active Protocol: Document 08/15/21 14:02 [facility] (Rec: 08/15/21 14:30 [facility] [id number]) Occupational Therapy Current Condition Current Condition Evaluation Date 08/15/21 Treatment Diagnosis CVA, decreased mobility Diagnosis Onset Date 08/15/21 M3 OT- IP Subjective and Pain Start: 08/15/21 14:01 Freq: Status: Active Protocol: Document 08/18/21 09:10 [facility] (Rec: 08/18/21 09:17 [facility] [id number]) OT- Subjective Occupational Therapy Visit Type Type Treatment Note Visit Start Time 08:45 Visit Stop Time 08:59 Total Visit Minutes 14 Occupational Therapy Visit Comments Patient Comments Pt not open to doing anymore cognitive testing and agree to do Dupree Balance test. Patient/Caregiver Goals To go home. OT Pain Assessment Pain When Pain Assessed At Rest Pain Present Pain Present Denied Pain M7 OT- IP Mobility and Balance Start: 08/15/21 14:01 Freq: Status: Active Protocol: Document 08/18/21 09:10 [facility] (Rec: 08/18/21 09:17 [facility] [id number]) OT-Transfer Assessment Sit to and From Stand Sit to and from Stand Independent Transfers Transfer Ability Independent Technique Transfer Destination Bed,Chair Transfer Technique Stand Step Pivot Devices Transfer Assistive Devices None Comments Mobility Comments Pt is independent in the room without a device. OT- Gait Assessment Comments Gait Ability Comments Independent in the room without a device. OT- Balance Assessment Sitting Balance and Reactions Static Sitting Balance Ability Normal Dynamic Sitting Balance Ability Normal Standing Balance and Reactions Static Standing Balance Ability Normal Dynamic Standing Balance Ability Fair Comments Other Balance Tests/Deviations/Treatment Pt score 48/56 on the Dupree : Functional Balance Scale which implies safe ambulation no assistive device/less likely to fall , However needing a score of 50 for outdoors and community- therefore may benefit from possible a walking stick that he has or 4WW. M9 OT- IP Assessment and Plan Start: 08/15/21 14:01 Freq: Status: Active Protocol: Document 08/18/21 09:10 [facility] (Rec: 08/18/21 09:17 [facility] [id number]) OT Summary Assessment and Plan Potential Rehabilitation Potential Excellent Analytic Complexity at Evaluation Moderate Summary OT Impairments Balance,Coordination, Functional Cognition, Functional Mobility,Grooming, Dressing,Toileting,Bathing, Toilet Transfers,Shower Transfers Progress Towards Goals Progressing Toward Goals Assessment Summary Pt improving with mobility needs and not wanting to do anymore cognitive needs and states wanting to go home to his elderly pets. Pt would still benefit from home health . and assist as needed for higher level cognitive needs. Goals Bathing Goal Independent OT-Other Goals Pt to be able to carry his laundry with good balance. Days to Meet Goals 10 Frequency of Treatment Frequency Of Treatment Once a Day Treatment Plan OT Treatment Plan ADL Training,Functional Cognition Training,Functional Mobility,Vision Retraining, Patient/Family Education, Discharge Planning Discharge Recommendations OT Discharge Recommendations Home with 24/7 Assist Available,Home Health Home Equipment Needs 4ww/walking stick Transportation Needs at Discharge Private Vehicle
[2021-08-18 08:59] VITALS: BP 126/66; PULSE 62
[2021-08-18] MEDS: MAGNESIUM OXIDE 400 MG TABLET PO (08:59)
[2021-08-18] MEDS: TAMSULOSIN 0.4 MG CAPSULE PO (08:59)
[2021-08-18] MEDS: SPIRONOLACTONE 25 MG TABLET PO (08:59)
[2021-08-18] MEDS: carvediloL 12.5 MG TABLET 50 MG PO (08:59)
[2021-08-18] MEDS: CLOPIDOGREL 75 MG TABLET PO (08:59)
[2021-08-18] MEDS: ASPIRIN EC 325 MG TABLET PO (08:59)
[2021-08-18 09:00] VITALS: BP 126/66; PULSE 62; RESP 12; TEMP 35.9; O2SAT 95
[2021-08-18] MEDS: ATORVASTATIN 20 MG TABLET PO (09:00)
[2021-08-18] MEDS: LOSARTAN 50 MG TABLET 100 MG PO (09:00)
[2021-08-18] MEDS: ENOXAPARIN 40 MG/0.4 ML SYRINGE SUBCUT (09:01)
[2021-08-18] MEDS: PENICILLIN VK 250 MG TABLET 500 MG PO (09:01)
[2021-08-18] MEDS: METFORMIN XR 500 MG TABLET 1000 MG PO (09:01)
[2021-08-18] MEDS: AMLODIPINE 5 MG TABLET PO (09:01)
[2021-08-18 09:25] VITALS: O2SAT 94
[2021-08-18] MEDS: INSULIN LISPRO 100 UNIT/ML 3ML VIAL SUBCUT (09:30)
[2021-08-18] MEDS: INSULIN NPH/REG 70-30 100 UNIT/ML 3ML VIAL 70 UNIT SUBCUT (09:31)
[2021-08-18] MEDS: SODIUM CHLORIDE 0.9% FLUSH 10 ML IV (09:59)
--- NOTE | 2021-08-18 10:24 | P.DS_ITS ---
History of Present Illness History of Present Illness Date Patient Seen: 08/18/21 Time Patient Seen: 09:30 Chief complaint: Alt LOC Narrative: 70-year-old, well known to me, with diabetes, who was recently admitted with stroke-like symptoms resulting in left-sided facial drooping as well as some left hand changes followed by an admission for a hypertensive emergency likely due to sudden discontinuation of his beta-whitley therapy now presents with increased left-sided weakness particularly of his leg. Patient reports he woke up after falling asleep in his chair and could not move his body. He somehow managed to get his cellphone out of his pocket after he falling remembered that he had in his pocket. Somehow was able to dial 911. He said his speech was very difficult slurred but the head end desizing machine operator understood him in sent medics. By the time medics arrived he was improved still could not really move or stand. They had to break the door down to get into his home. He was evaluated found to have a blood sugar of 67 given some IV dextrose with really no subjective change. He was helped down stairs by medics and then put on a gurney and transported to the hospital. By the time he arrived at the hospital his speech was much better he was able to least move everything although still globally weak and difficulty with coordination with his hands etcetera He was evaluated in our ER felt to have progression of stroke and admitted for further evaluation. CT scan of the head and CT angiography of the head neck were unremarkable unchanged from previous showing a right vertebral stenosis/occlusion but really nothing new. In addition patient had been evaluated by his dentist on Friday the found to have a fractured tooth with evidence of infection was started on amoxicillin and Flagyl apparently per the dentist and given tramadol to take instead of oxycodone apparently took 1 tramadol on the but none on the 12th day of admission. Has been using oxycodone for his pain instead Patient is not a candidate for MRI given of implanted defibrillator. CT imaging is thus far been unremarkable including angiography. Patient was started on aspirin during last admission which he has not been taking previously. Patient had improved but not return to baseline prior to the onset of these new symptoms Discharge Providers Provider Date of admission: 08/15/21 03:35 Discharge Date: 08/18/21 Primary care physician: Salvador Guzman MD Consults: 08/15/21 06:53 Consult to Discharge Planning Routine Comment: Consult to Occupational Therapy Evaluate & Treat Comment: Physician Instructions: Evaluate and treat Consult to Physical Therapy Evaluate & Treat Comment: Physician Instructions: Evaluate and Treat Consult to Speech Therapy Evaluate & Treat Comment: Physician Instructions: Evaluate and treat 08/15/21 06:55 Consult to Dietitian, Adult Routine Comment: Reason For Exam: DM, poor control 08/17/21 11:57 Consult to Home Health Routine Comment: Reason For Exam: Home Health RN, P.T, O.T. Discharge provider: Ashley Duarte MD Summary Hospital Course Discharge Diagnosis: Weakness CVA DM Type 2 Hypertension GERD Dental infection Hospital Course: The patient presented with weakness, particularly of his left leg. He had recently been admitted for stroke-like symptoms in addition to hypertensive emergency. CT was negative an MRI could not be obtained due to an implanted defibrillator. His symptoms at presentation were thought to be due to progression of his stroke. Physical and occupational therapy met with the patient while he is in the hospital, and the patient regained his normal level of strength. While in the hospital, the patient did have significant hypog lycemia on his normal insulin regimen. This was thought to be due to dietary indiscretion when the patient is at home. His insulin levels were decreased significantly while he was in the hospital. These were increased slightly at discharge due to the likely dietary changes at home, however were not returned to their prior level. He will be discharged on 70 units of 70/30 twice a day. At the time of discharge, the patient was ambulating with a walker. SNF and rehab were discussed with the patient, but he declined both. He will be discharged with home health services. The patient was started on Plavix while he was in the hospital and will continue on such at home. He is already on a s tatin medication. Status at Discharge Cognitive/behavioral status at discharge: oriented Functional status at discharge: uses cane/walker Overall status at discharge: patient is back to baseline Exam Vital Signs (past 8 hours): - 08/18/21 05:44 08/18/21 07:35 08/18/21 08:59 Temperature 97.3 F L Pulse Rate 76 62 Respiratory Rate 12 Blood Pressure 139/66 126/66 Pulse Oximetry 95 96 08/18/21 09:00 08/18/21 09:25 Temperature Pulse Rate Respiratory Rate Blood Pressure 126/66 Pulse Oximetry 94 Oxygen Delivery Method Room Air Oxygen Flow Rate 0 Narrative Exam Narrative: General: No acute distress, sitting comfortably in bed, appears well, pleasantly conversant. CV: Regular rate and rhythm no murmurs Respiratory: Clear to auscultation bilaterally no wheezes or crackles Abdomen: Soft, nontender, nondistended, normoactive bowel sounds Objective Labs Result Diagrams: 08/15/21 01:15 08/15/21 17:05 [facility] Medical History Automatic implantable cardiac defibrillator in situ (~07/2019) Degeneration of intervertebral disc of cervical region Diabetic peripheral neuropathy (07/25/15) Essential hypertension emt intermediate current use of insulin (08/20/16) Mixed hyperlipidemia Nonischemic cardiomyopathy (09/09/16) Type 2 diabetes mellitus with hyperglycemia, with long-term current use of insulin Type 2 diabetes mellitus without complication Social History marital status: unmarried,single number of children: 0 household members: none lives independently: Yes caregiver/support person: Yes housing: house pets and animals: Yes education level: other (Bachelor's Degree) occupational status: other (Retired) current occupational exposures/hazards: No 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/hoahaoism: Taoist travel history: recent leisure activities: music, reading and other (Hiking.) Smoking Status: Never smoker quit status: quit date established second hand exposure: No alcohol intake: current substance use type: does not use Discharge Plan Discharge Plan Patient Disposition: Home Health Service Discharge orders & Medications Prescriptions: New penicillin V potassium 250 mg Tablet 500 mg PO ACHS Qty: 40 RF: 0 clopidogrel 75 mg Tablet 75 mg PO DAILY Qty: 30 RF: 3 pantoprazole 40 mg Tablet,Delayed Release (Dr/Ec) 40 mg PO DAILY@0700 Qty: 30 RF: 2 Continued trazodone 50 mg tablet 50 mg PO HS Qty: 90 RF: 3 tamsulosin 0.4 mg capsule 0.4 mg PO DAILY Qty: 90 RF: 3 metformin [Glucophage XR] 500 mg tablet extended release 24 hr 1,000 mg PO BID Qty: 360 RF: 3 nortriptyline 50 mg capsule See Rx Instructions PO HS Qty: 180 RF: 3 gabapentin 300 mg capsule 300 mg PO BEDTIME Qty: 90 RF: 3 amlodipine 5 mg tablet 5 mg PO DAILY Qty: 90 RF: 1 carvedilol 25 mg tablet 50 mg PO BID Qty: 360 RF: 1 atorvastatin 20 mg tablet 20 mg PO DAILY Qty: 90 RF: 1 (DME) Glucose: Test Strips 0 .Route .MEDSUPPLY Qty: 500 RF: 11 magnesium oxide 400 mg (241.3 mg magnesium) tablet 400 mg PO DAILY RF: 0 oxycodone 5 mg tablet 5 mg PO Q6H PRN (Reason: pain) Qty: 60 RF: 0 losartan [Cozaar] 100 mg tablet 100 mg PO QDAY Qty: 90 RF: 3 spironolactone 25 mg tablet 25 mg PO QDAY Qty: 90 RF: 3 (DME) FreeStyle Tara 14 Day Sensor Kit See Rx Instructions .ROUTE .MEDSUPPLY Qty: 1 RF: 12 (DME) FreeStyle Tara 14 Day [place] Misc See Rx Instructions .ROUTE .MEDSUPPLY Qty: 1 RF: 0 aspirin 325 mg Tablet,Delayed Release (Dr/Ec) 325 mg PO DAILY Qty: 250 RF: 0 sennosides [senna] 8.6 mg Tablet 8.6 mg PO BEDTIME Qty: 30 RF: 0 Changed Humulin 70/30 U-100 KwikPen 100 unit/mL (70-30) insulin pen 70 unit SUBCUT BID Qty: 200 RF: 10 Discontinued glipizide 10 mg tablet 10 mg PO BID Qty: 180 RF: 3 omeprazole 40 mg capsule,delayed release(DR/EC) 40 mg PO BID Qty: 180 RF: 1 Follow up/Referrals: Salvador Guzman MD [Primary Care Provider] - 2 Weeks Diet/Activity/Treatments Diet: Diet as Tolerated, Carb-consistent/Diabetic and Low-sodium Visit Report/Discharge Packet Instructions: Progress in Stroke Prevention, Strokes: Prevention (Alternative Therapy), How to Prevent Falls Visit Report Forms: Patient Portal/API, Stroke Signs & Symptoms Discharge Data Primary Care Provider: Salvador Guzman
--- NOTE | 2021-08-18 11:30 | PT.IPTN ---
Current Diagnoses Cerebral infarction, unspecified (08/15/21) Physical Therapy Treatment Note M2 PT-IP Current Condition Start: 08/15/21 11:57 Freq: NEEDED Status: Discharge Protocol: Document 08/15/21 10:47 [facility] (Rec: 08/15/21 12:09 [facility] Physical Therapy Current Condition Current Condition Evaluation Date 08/15/21 Treatment Diagnosis hypoglycemia; CVA; weakness Onset Date 08/15/21 Precautions Other Precautions falls M3 PT-IP Subjective Start: 08/15/21 11:57 Freq: NEEDED Status: Discharge Protocol: Document 08/18/21 11:30 [facility] (Rec: 08/18/21 13:00 [facility] Subjective Physical Therapy Visit Type Type Treatment Note Visit Start Time 11:30 Visit Stop Time 11:40 Total Visit Minutes 10 Number of SENIOR VICE PRESIDENT AND CHIEF INFORMATION OFFICER Visits 0 Physical Therapy Visit Comments Patient Comments agreeable to do PT M4 PT-IP Mobility and Gait Start: 08/15/21 11:57 Freq: NEEDED Status: Discharge Protocol: Document 08/18/21 11:30 [facility] (Rec: 08/18/21 13:00 [facility] PT-Transfer Assessment Sit to and From Stand Sit to and from Stand Standby Assistance Equipment Transfer Assistive Device None Orthotic/Prosthetic Devices or Brace: No Transfer Ability Level of Assist Independent Comments Mobility Comments pt stated that he is feeling much better and ambulating better. agreed to do PT. completed sit to stand SBA and ambulated ~ 150 ft without AD SBA. presents with antalgic gait but without LOB. completed up/down steps using B rails SBA and ambulated back to his room. pt stated that he feels good walking without AD but will borrow a FWW when he gets home for outdoor mobility. Pt is independent for indoor mobility and SBA for outdoor for safety. Gait Assessment Gait Gait Assistance Required: Standby Assistance Distance (Feet) 150 Able to Maintain Weight Bearing Status Yes During Gait Assistive Devices Assistive Device None Orthotic/Prosthetic Devices or Brace: No Gait Deviations General Gait Pattern Antalgic Stair Climbing Assessment Evaluation Level of Assist On Stairs Standby Assistance Devices Stair Climbing Assistive Devices Left Railing,Right Railing Technique/Endurance Stair Climbing Direction Ascend and Descend Stair Climbing Technique Step Over Step Number of Steps Climbed 3 M5 PT-IP Objective Assessments Start: 08/15/21 11:57 Freq: NEEDED Status: Discharge Protocol: Document 08/15/21 10:47 [facility] (Rec: 08/15/21 12:09 [facility] [id number]) Orientation Orientation/Cognition Level of Alertness Alert Orientation Name,Place,Situation Language Function Ability No Deficits Noted Safety Awareness Understands Safety Issues Memory Description No Deficits Noted Gross Range of Motion Lower Extremity ROM Assessment Within Functional Limits Strength Comments Strength Comments L hip: 3+/5 L knee: 4-/5 R hip 4-/5 R knee: 3+/5 Sensation Assessment Sensation Gross Sensation Right LE Impaired,Left LE Impaired Light Touch Impaired Proprioception (Position) Impaired Sensation Description Burning Comments Sensation Comments chronic neuropathyon B feet with burning sensation Muscle Tone Muscle Tone WNL Yes M6 PT-IP Treatment Start: 08/15/21 11:57 Freq: NEEDED Status: Discharge Protocol: Document 08/18/21 11:30 [facility] (Rec: 08/18/21 13:00 [facility] [id number]) Physical Therapy Treatment Education Education Provided Safety M7 PT-IP Assessment and Plan Start: 08/15/21 11:57 Freq: NEEDED Status: Discharge Protocol: Document 08/18/21 11:30 [facility] (Rec: 08/18/21 13:00 [facility] [id number]) PT Summary Assessment and Plan Potential Rehabilitation Potential Good Summary Impairments Pain,ROM,Strength,Balance, Coordination,Sensation,Tone, Cognition,Bed Mobility, Transfers,Gait,Activity Tolerance Progress Towards Goals Progressing Toward Goals Assessment Summary pt is doing well with mobility and is independent with ambulation without AD indoors, SBA for outdoor mobility for safety. pt plans to go home today. Frequency of Treatment Frequency Of Treatment Discharge Recommendations To Nursing Amount of Assist Needed Independent Discharge Recommendations PT Discharge Recommendations Home
--- NOTE | 2021-08-18 11:34 | PC.NURSE ---
Day shift: Paperwork signed and all questions answered. Pt has all personal belongings. scripts sent to Pt's pharmacy electronic. Pt taken to car that his friend is driving in a WC at approx 1200.
--- NOTE | 2021-08-18 16:30 | CM.DPNOTE ---
DC Note Patient DC home today, friend to transport. Patient agreeable to HH. Confirmed w/ [facility] and faxed patient's DC Summary JW
== END 2021-08-18 12:10 | disposition home health service (06) | DRG 65 ==
LOC: ED 02:42 → AC 08:22
PROVIDERS: Admitting Provider Internal Medicine; Emergency Provider Emergency Medicine; PCP Internal Medicine; Referring Provider Emergency Medicine; Visit Provider Internal Medicine
DX: I63.9 Cerebral infarction, unspecified (principal); I42.9 Cardiomyopathy, unspecified; K04.7 Periapical abscess without sinus; E11.649 Type 2 diabetes mellitus with hypoglycemia without coma; G83.14 Monoplegia of lower limb affecting left nondominant side; I10 Essential (primary) hypertension; E78.5 Hyperlipidemia, unspecified; K21.9 Gastro-esophageal reflux disease without esophagitis; R29.705 NIHSS score 5; R29.700 NIHSS score 0; Z20.822 Contact with and (suspected) exposure to COVID-19; Z95.810 Presence of automatic (implantable) cardiac defibrillator; Z79.4 Long term (current) use of insulin; Z79.84 Long term (current) use of oral hypoglycemic drugs
CPT/HCPCS: 36415; 70450; 70496; 70498; 80048; 80305; 82947; 82962; 85025; 87635; 93005; 93010; 94760; 96361; 96374; 97116; 97129; 97130; 97162; 97166; 97530; 97535; 99223; 99233; 99238; 99284; 99285; C9803; J1650; J1815; J2405; Q9967

== ENCOUNTER → 2021-09-12 11:19 | Outpatient (CLI) | payer MEDICARE, SELFPAY ==
[2021-08-15 05:54] VITALS: BMI 31.1
[2021-09-12 12:35] LABS: Hemoglobin A1C% w Est Avg Glu 6.7 % (4.0-6.0)
[2021-09-12 13:43] LABS: Alanine Aminotransferase 20 IU/L (<50); Albumin 4.5 g/dL (3.5-5.0); Albumin Globulin Ratio 1.6 (1.0-2.8); Alkaline Phosphatase 70 U/L (38-126); Aspartate Aminotransferase 33 IU/L (17-59); BUN Creatinine Ratio 13.1 (6-22); Bilirubin Total 0.7 mg/dL (0.2-1.3); Blood Urea Nitrogen 17 mg/dL (9-20); Calcium 9.2 mg/dL (8.4-10.2); Carbon Dioxide 25 mmol/L (22-32); Chloride 100 mmol/L (98-107); Cholesterol 105 mg/dL (140-199); Estimated Glomerular Filt Rate 54.4 mL/min (>60); Globulin 2.8 g/dL (1.7-4.1); Glucose 194 mg/dL (80-110); HDL Cholesterol 32 mg/dL (40-60); HEMOLYSIS < 15 (0-50); LDL Cholesterol Calculated 12 mg/dL (<100); Potassium 4.3 mmol/L (3.4-5.1); Sodium 136 mmol/L (137-145); Total Protein 7.3 g/dL (6.3-8.2); Triglycerides 306 mg/dL (35-150)
== END ==
PROVIDERS: PCP Internal Medicine; Referring Provider Internal Medicine; Visit Provider Internal Medicine
DX: E11.65 Type 2 diabetes mellitus with hyperglycemia (principal); E78.2 Mixed hyperlipidemia; I10 Essential (primary) hypertension; Z79.4 Long term (current) use of insulin
CPT/HCPCS: 36415; 80053; 80061; 83036

== ENCOUNTER → 2021-11-19 11:50 | Outpatient (CLI) | payer MEDICARE, SELFPAY ==
[2021-08-15 05:54] VITALS: BMI 31.1
[2021-11-19 13:31] LABS: Alanine Aminotransferase 19 IU/L (<50); Albumin 4.4 g/dL (3.5-5.0); Albumin Globulin Ratio 1.5 (1.0-2.8); Alkaline Phosphatase 90 U/L (38-126); Aspartate Aminotransferase 25 IU/L (17-59); Bilirubin Total 0.7 mg/dL (0.2-1.3); Blood Urea Nitrogen 13 mg/dL (9-20); Carbon Dioxide 24 mmol/L (22-32); Chloride 102 mmol/L (98-107); Glucose 243 mg/dL (80-110); HEMOLYSIS < 15 (0-50); Potassium 4.6 mmol/L (3.4-5.1); Sodium 136 mmol/L (137-145); Total Protein 7.4 g/dL (6.3-8.2)
[2021-11-19 13:32] LABS: BUN Creatinine Ratio 12.3 (6-22); Estimated Glomerular Filt Rate > 60.0 mL/min (>60)
== END ==
PROVIDERS: PCP Internal Medicine; Referring Provider Nurse Practitioner; Visit Provider Nurse Practitioner
DX: I42.0 Dilated cardiomyopathy (principal); I10 Essential (primary) hypertension
CPT/HCPCS: 36415; 80053

== ENCOUNTER → 2021-12-13 11:39 | Outpatient (CLI) | payer MEDICARE, SELFPAY ==
[2021-08-15 05:54] VITALS: BMI 31.1
[2021-12-13 13:07] LABS: Hemoglobin A1C% w Est Avg Glu 9.5 % (4.0-6.0)
[2021-12-13 13:36] LABS: Alanine Aminotransferase 19 IU/L (<50); Albumin 4.1 g/dL (3.5-5.0); Albumin Globulin Ratio 1.4 (1.0-2.8); Alkaline Phosphatase 80 U/L (38-126); Aspartate Aminotransferase 19 IU/L (17-59); BUN Creatinine Ratio 17.5 (6-22); Bilirubin Total 0.6 mg/dL (0.2-1.3); Blood Urea Nitrogen 21 mg/dL (9-20); Calcium 9.4 mg/dL (8.4-10.2); Carbon Dioxide 22 mmol/L (22-32); Chloride 102 mmol/L (98-107); Estimated Glomerular Filt Rate 59.5 mL/min (>60); Globulin 2.9 g/dL (1.7-4.1); Glucose 273 mg/dL (80-110); HEMOLYSIS < 15 (0-50); Potassium 4.3 mmol/L (3.4-5.1); Sodium 135 mmol/L (137-145)
== END ==
PROVIDERS: PCP Internal Medicine; Referring Provider Internal Medicine; Visit Provider Internal Medicine
DX: E11.9 Type 2 diabetes mellitus without complications (principal); E78.2 Mixed hyperlipidemia; I10 Essential (primary) hypertension; Z79.4 Long term (current) use of insulin
CPT/HCPCS: 36415; 80053; 83036

== ENCOUNTER → 2022-03-14 09:32 | Outpatient (CLI) | payer MEDICARE, SELFPAY ==
[2021-08-15 05:54] VITALS: BMI 31.1
[2022-03-14 10:57] LABS: BUN Creatinine Ratio 16.7 (6-22); Blood Urea Nitrogen 13 mg/dL (9-20); Estimated Glomerular Filt Rate > 60 mL/min (>60)
[2022-03-14 10:58] LABS: Hemoglobin A1C% w Est Avg Glu 6.8 % (4.0-6.0)
== END ==
PROVIDERS: PCP Internal Medicine; Referring Provider Internal Medicine; Visit Provider Internal Medicine
DX: E11.65 Type 2 diabetes mellitus with hyperglycemia (principal); I10 Essential (primary) hypertension; Z79.4 Long term (current) use of insulin
CPT/HCPCS: 36415; 82565; 83036; 84520

== ENCOUNTER 2022-05-16 12:07 | Inpatient (IN) | payer MEDICARE, SELFPAY ==
[2021-08-15 05:54] VITALS: BMI 31.1
[2022-05-16] VITALS (23 sets, daily range): BP systolic 103–144; BP diastolic 42–70; PULSE 52–68; RESP 15–26; TEMP 35.9–36.8; O2SAT 95–100; BMI 29.2
--- NOTE | 2022-05-16 12:31 | ED.GIBLEED ---
HPI - GI Bleed General Chief complaint: GI Bleed Stated complaint: stomache problems, diarrhea, sent by clinic Time Seen by Provider: 05/16/22 12:10 Source: patient Mode of arrival: Wheelchair History of Present Illness HPI Narrative: 71-year-old male nonsmoker with history of hypertension hyperlipidemia presents from the walk-in clinic for evaluation of dark and tarry stools for about the past 2 weeks. He occasionally has generalized abdominal pain but denies any specific location, obvious provocation or palliation. He is not a big drinker and has never had any issues with withdrawals, or blood in his vomit. He is never been told he has liver failure and denies any history of endoscopy or abnormal colonoscopy. He does not take any blood thinners but does take aspirin daily. He feels dizzy, weak and lightheaded and become short of breath with exertion. Related Data Home Medications Medication Instructions Recorded Confirmed magnesium oxide 400 mg (241.3 mg 400 mg PO DAILY 03/20/21 03/19/22 magnesium) tablet carvedilol 25 mg tablet 25 mg PO BID 03/19/22 03/19/22 sacubitril 24 mg-valsartan 26 mg 1 tab PO BID 03/19/22 03/19/22 tablet (Entresto) Previous Rx's Medication Instructions Recorded spironolactone 25 mg tablet 25 mg PO QDAY #90 tabs 10/12/19 nortriptyline 50 mg capsule See Rx Instructions PO HS #180 caps 04/30/21 flash glucose scanning reader #1 ea 06/19/21 (FreeStyle Tara 14 Day [place]) flash glucose sensor (FreeStyle #1 ea 06/19/21 Tara 14 Day Sensor kit) aspirin 325 mg tablet,delayed 325 mg PO DAILY #250 tabs 07/06/21 release sennosides 8.6 mg tablet (senna) 8.6 mg PO BEDTIME #30 tabs 07/31/21 amlodipine 5 mg tablet 5 mg PO DAILY #90 tabs 08/02/21 atorvastatin 20 mg tablet 20 mg PO DAILY #90 tabs 08/02/21 penicillin V potassium 250 mg 500 mg PO ACHS #40 tabs 08/17/21 tablet Glucose: Test Strips #500 ea 08/27/21 blood-glucose meter (Blood Glucose #1 ea 08/27/21 Monitoring kit) insulin NPH-regular 70-30 U-100 70 unit (0.7 mL) SUBCUT BID #200 mL 09/24/21 insulin 100 unit/mL subcutaneous pen (Humulin 70/30 U-100 KwikPen) ivabradine 5 mg tablet 5 mg PO BID #180 tabs 11/05/21 metformin 500 mg tablet,extended 1,000 mg PO BID #360 tabs 12/03/21 release 24 hr tamsulosin 0.4 mg capsule 0.4 mg PO DAILY #90 caps 12/03/21 clopidogrel 75 mg tablet 75 mg PO DAILY #90 tabs 01/02/22 oxycodone 5 mg tablet 5 mg PO Q6H PRN pain #60 tabs 02/15/22 pantoprazole 40 mg tablet,delayed 40 mg PO DAILY@0700 #90 tabs 02/28/22 release gabapentin 300 mg capsule 300 mg PO BEDTIME #90 caps 05/07/22 Allergies Allergy/AdvReac Type Severity Reaction Status Date / Time No Known Drug Allergies Allergy Verified 05/16/22 12:17 Review of Systems Review of Systems Narrative: GENERAL: See HPI HEENT: Denies sinus pain, ear pain, sore throat, difficulty swallowing, dizziness. RESPIRATORY: Denies dyspnea, cough, wheezing, hemoptysis, sputum. CARDIOVASCULAR: Denies chest pain, palpitations, orthopnea, edema, GASTROINTESTINAL: See HPI : Denies dysuria, frequency, incontinence, hematuria, urinary retention. MUSCULOSKELETAL: denies weakness, joint pain, or bony pain SKIN: Denies rash, skin lesions, or other NEUROLOGIC: Denies weakness, headache, numbness, change in speech, confusion, seizures, incoordination. PSYCHIATRIC: No concerning psychosocial issues. 12 point review of systems is negative except for those stated above Patient History Medical History Automatic implantable cardiac defibrillator in situ (~07/2019) Cerebrovascular accident Degeneration of intervertebral disc of cervical region Diabetic peripheral neuropathy (07/25/15) Essential hypertension FDC current use of insulin (08/20/16) Mixed hyperlipidemia Nonischemic cardiomyopathy (09/09/16) Type 2 diabetes mellitus with hyperglycemia, with long-term current use of insulin Type 2 diabetes mellitus without complication Social History marital status: unmarried,single number of children: 0 household members: none lives independently: Yes caregiver/support person: Yes housing: house pets and animals: Yes education level: other (Bachelor's Degree) occupational status: other (Retired) current occupational exposures/hazards: No 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/sikhism: Zoroastrianism travel history: recent leisure activities: music, reading and other (Hiking.) Smoking Status: Never smoker quit status: quit date established second hand exposure: No alcohol intake: current substance use type: does not use Smoking Status: Never smoker alcohol intake frequency: 3 or more drinks per day Alcohol type: hard liquor Substance Use Type: does not use Exam Narrative Exam Narrative: GENERAL: [71] year old patient appears stated age. Well-developed patient, in mild distress. HEAD: Atraumatic. Normocephalic. EYES: Pupils equal round and reactive. Extraocular motions intact. No scleral icterus. No injection or drainage. ENT: Nose without bleeding, purulent drainage. Throat without erythema, tonsillar hypertrophy or exudate. Airway patent. NECK: Trachea midline. Non tender CARDIOVASCULAR: Regular rate and rhythm without murmurs, gallops, or rubs. RESPIRATORY: Clear to auscultation. Breath sounds equal bilaterally. No wheezes, rales, or rhonchi. GASTROINTESTINAL: Abdomen soft, non-tender, nondistended. EXTREMITIES: No edema or joint tenderness. BACK: Nontender without deformity or crepitance. No flank tenderness. NEURO: AOx3. 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 Guzman happy to accept on his service, requests we notify Gen Surg Consultation #2: Dr. Estrada happy to be involved in consultation Vital Signs Vital signs: Vital Signs - 8 hr 05/16/22 12:13 05/16/22 12:12 05/16/22 12:13 Temperature 98.2 F Pulse Rate 61 64 64 Respiratory Rate 18 Blood Pressure 123/59 L Pulse Oximetry 98 98 98 Oxygen Delivery Method Room Air 05/16/22 12:13 05/16/22 12:15 05/16/22 12:15 Temperature Pulse Rate 62 Respiratory Rate 19 Blood Pressure 123/59 L 131/63 Pulse Oximetry 99 Oxygen Delivery Method 05/16/22 12:30 05/16/22 12:30 05/16/22 12:45 Temperature Pulse Rate 60 Respiratory Rate 15 Blood Pressure 109/57 L 111/57 L Pulse Oximetry 98 Oxygen Delivery Method 05/16/22 12:45 05/16/22 13:39 05/16/22 13:59 Temperature 98.0 F 97.6 F Pulse Rate 57 L 56 L 56 L Respiratory Rate 17 26 H 16 Blood Pressure 120/59 L 124/59 L Pulse Oximetry 99 Oxygen Delivery Method 05/16/22 13:00 05/16/22 13:01 05/16/22 13:01 Temperature Pulse Rate 58 L 56 L Respiratory Rate 18 16 Blood Pressure 116/59 L Pulse Oximetry 99 99 Oxygen Delivery Method 05/16/22 13:15 05/16/22 13:15 05/16/22 13:30 Temperature Pulse Rate 57 L Respiratory Rate 20 Blood Pressure 113/55 L 120/59 L Pulse Oximetry 98 Oxygen Delivery Method 05/16/22 13:30 05/16/22 13:39 05/16/22 13:39 Temperature Pulse Rate 57 L 56 L Respiratory Rate 18 19 Blood Pressure 138/63 Pulse Oximetry 97 98 Oxygen Delivery Method 05/16/22 13:45 05/16/22 13:45 05/16/22 14:00 Temperature Pulse Rate 68 Respiratory Rate 20 Blood Pressure 144/70 H 124/59 L Pulse Oximetry 99 Oxygen Delivery Method 05/16/22 14:00 05/16/22 14:15 05/16/22 14:15 Temperature Pulse Rate 54 L 54 L Respiratory Rate 15 15 Blood Pressure 120/58 L Pulse Oximetry 99 98 Oxygen Delivery Method MDM - GI Bleed Lab Data Result diagrams: 05/16/22 12:26 05/16/22 12:26 Labs: Lab Results 05/16/22 05/16/22 05/16/22 Range/Units 12:26 12:26 12:26 WBC 5.6 (4.5-11.0) X10^3/uL RBC 2.40 L (4.5-5.9) X10^6/uL Hgb 7.2 L (13.5-17.5) g/dL Hct 20.7 L* (41-53) % MCV 86.3 (80-100) fL MCH 29.9 (26-34) PG MCHC 34.7 (30-36) % RDW 15.3 H (11.6-14.8) % Plt Count 224 (150-400) X10^3/uL Neut % (Auto) 68.8 (50-75) % Lymph % (Auto) 19.9 L (25-40) % [place] % (Auto) 10.2 (3-14) % Eos % (Auto) 0.8 L (2-4) % Baso % (Auto) 0.3 (0-2) % Neut # (Auto) 3800 (4444-3295) /uL Lymph # (Auto) 1100 (2872-4504) /uL [place] # (Auto) 600 (0-900) /uL Eos # (Auto) 0 (0-450) /uL Baso # (Auto) 0 (0-100) /uL PT 14.2 H (10.1-12.7) SECONDS INR 1.3 (0.9-1.3) Sodium 138 (137-145) mmol/L Potassium 3.1 L (3.4-5.1) mmol/L Chloride 107 (98-107) mmol/L Carbon Dioxide 21 L (22-32) mmol/L BUN 17 (9-20) mg/dL Creatinine 0.96 (0.66-1.25) mg/dL Estimated GFR > 60 (>60) mL/min BUN/Creatinine Ratio 17.7 (6-22) Glucose 65 L (80-110) mg/dL Lactate (0.7-2.1) mmol/L Calcium 9.5 (8.4-10.2) mg/dL Magnesium (1.6-2.3) mg/dL Total Bilirubin 0.7 (0.2-1.3) mg/dL AST 29 (17-59) IU/L ALT 23 (<50) IU/L Alkaline Phosphatase 73 (38-126) U/L Total Creatine Kinase (55-170) U/L CK-MB (CK-2) CK-MB (CK-2) Rel Index Troponin I (0.01-0.034) ng/mL NT-Pro-B Natriuret Pep (<125) pg/mL Total Protein 6.9 (6.3-8.2) g/dL Albumin 4.1 (3.5-5.0) g/dL Globulin 2.8 (1.7-4.1) g/dL Albumin/Globulin Ratio 1.5 (1.0-2.8) Lipase (23-300) U/L SARS-CoV-2 (PCR) (Negative) Blood Type Antibody Screen Crossmatch 05/16/22 05/16/22 05/16/22 Range/Units 12:26 12:26 12:26 WBC (4.5-11.0) X10^3/uL RBC (4.5-5.9) X10^6/uL Hgb (13.5-17.5) g/dL Hct (41-53) % MCV (80-100) fL MCH (26-34) PG MCHC (30-36) % RDW (11.6-14.8) % Plt Count (150-400) X10^3/uL Neut % (Auto) (50-75) % Lymph % (Auto) (25-40) % [place] % (Auto) (3-14) % Eos % (Auto) (2-4) % Baso % (Auto) (0-2) % Neut # (Auto) (9535-8639) /uL Lymph # (Auto) (5981-3997) /uL [place] # (Auto) (0-900) /uL Eos # (Auto) (0-450) /uL Baso # (Auto) (0-100) /uL PT (10.1-12.7) SECONDS INR (0.9-1.3) Sodium (137-145) mmol/L Potassium (3.4-5.1) mmol/L Chloride (98-107) mmol/L Carbon Dioxide (22-32) mmol/L BUN (9-20) mg/dL Creatinine (0.66-1.25) mg/dL Estimated GFR (>60) mL/min BUN/Creatinine Ratio (6-22) Glucose (80-110) mg/dL Lactate 1.3 (0.7-2.1) mmol/L Calcium (8.4-10.2) mg/dL Magnesium 1.6 (1.6-2.3) mg/dL Total Bilirubin (0.2-1.3) mg/dL AST (17-59) IU/L ALT (<50) IU/L Alkaline Phosphatase (38-126) U/L Total Creatine Kinase 42 L (55-170) U/L CK-MB (CK-2) TNP CK-MB (CK-2) Rel Index TNP Troponin I < 0.012 (0.01-0.034) ng/mL NT-Pro-B Natriuret Pep 187 H (<125) pg/mL Total Protein (6.3-8.2) g/dL Albumin (3.5-5.0) g/dL Globulin (1.7-4.1) g/dL Albumin/Globulin Ratio (1.0-2.8) Lipase 66 (23-300) U/L SARS-CoV-2 (PCR) (Negative) Blood Type O Positive Antibody Screen Negative Crossmatch See Detail 05/16/22 Range/Units 12:40 WBC (4.5-11.0) X10^3/uL RBC (4.5-5.9) X10^6/uL Hgb (13.5-17.5) g/dL Hct (41-53) % MCV (80-100) fL MCH (26-34) PG MCHC (30-36) % RDW (11.6-14.8) % Plt Count (150-400) X10^3/uL Neut % (Auto) (50-75) % Lymph % (Auto) (25-40) % [place] % (Auto) (3-14) % Eos % (Auto) (2-4) % Baso % (Auto) (0-2) % Neut # (Auto) (2087-2101) /uL Lymph # (Auto) (3115-7753) /uL [place] # (Auto) (0-900) /uL Eos # (Auto) (0-450) /uL Baso # (Auto) (0-100) /uL PT (10.1-12.7) SECONDS INR (0.9-1.3) Sodium (137-145) mmol/L Potassium (3.4-5.1) mmol/L Chloride (98-107) mmol/L Carbon Dioxide (22-32) mmol/L BUN (9-20) mg/dL Creatinine (0.66-1.25) mg/dL Estimated GFR (>60) mL/min BUN/Creatinine Ratio (6-22) Glucose (80-110) mg/dL Lactate (0.7-2.1) mmol/L Calcium (8.4-10.2) mg/dL Magnesium (1.6-2.3) mg/dL Total Bilirubin (0.2-1.3) mg/dL AST (17-59) IU/L ALT (<50) IU/L Alkaline Phosphatase (38-126) U/L Total Creatine Kinase (55-170) U/L CK-MB (CK-2) CK-MB (CK-2) Rel Index Troponin I (0.01-0.034) ng/mL NT-Pro-B Natriuret Pep (<125) pg/mL Total Protein (6.3-8.2) g/dL Albumin (3.5-5.0) g/dL Globulin (1.7-4.1) g/dL Albumin/Globulin Ratio (1.0-2.8) Lipase (23-300) U/L SARS-CoV-2 (PCR) Negative (Negative) Blood Type Antibody Screen Crossmatch Imaging Data US - abdomen: Radiologist's Impression: [address] [id number] ReportSigned Patient: Angela Lyon CMR#: [id number]: 7Acct:[id number]/Sex: 64 / FDate of Service: 05/16/22Loc: EDAccession Number: [id number] Procedure: XR chest 1V Ordering Provider: Khanh Ng D.O. PROCEDURE: XR CHEST 1V INDICATIONS: chest pain TECHNIQUE: One view of the chest was acquired. COMPARISON: None. FINDINGS: Surgical changes and devices: None. Lungs and pleura: There is mild right hemidiaphragm elevation. Mildly increased pulmonary vascularity. No pleural effusions or pneumothorax. Mediastinum: Mediastinal contours appear normal. Heart size is normal. Bones and chest wall: No suspicious bony lesions. Overlying soft tissues appear unremarkable. IMPRESSION: 1. Mildly increased pulmonary vascularity may be secondary to inadequate expansion or mild pulmonary edema. Command clinical correlation. Dictated by: Nicole Parada M.D. on 05/16/2022 at 12:39 Approved by: Nicole Parada M.D. on 05/16/2022 at 12:41 Discharge Plan Departure Patient Disposition: Admitted As Inpatient Clinical Impression: Acute GI bleeding, Anemia
[2022-05-16 12:38] LABS: Add Manual Diff / Slide Review NO; Basophils Absolute Auto 0 /uL (0-100); Basophils Percent Auto 0.3 % (0-2); Eosinophils Absolute Auto 0 /uL (0-450); Eosinophils Percent Auto 0.8 % (2-4); Hemoglobin 7.2 g/dL (13.5-17.5); Lymphocytes Absolute Auto 1100 /uL (1100-4500); Lymphocytes Percent Auto 19.9 % (25-40); Mean Corpuscular HGB Conc 34.7 % (30-36); Mean Corpuscular Hemoglobin 29.9 PG (26-34); Mean Corpuscular Volume 86.3 fL (80-100); Monocytes Absolute Auto 600 /uL (0-900); Monocytes Percent Auto 10.2 % (3-14); Neutrophils Absolute Auto 3800 /uL (1500-7000); Neutrophils Percent Auto 68.8 % (50-75); Platelet Count 224 X10^3/uL (150-400); Red Cell Distribution Width 15.3 % (11.6-14.8); White Blood Cell Count 5.6 X10^3/uL (4.5-11.0)
[2022-05-16] MEDS: PANTOPRAZOLE 40 MG VIAL IV ×2 (12:40→20:54)
--- NOTE | 2022-05-16 12:44 | DI.US.S_ITS ---
PROCEDURE: US ABDOMEN LIMITED INDICATIONS: epigastric and RUQ pain TECHNIQUE: Real-time focused scanning was performed of the abdomen, with image documentation. COMPARISON: [facility], CT, CT ABDOMEN PELVIS W CON, 07/30/2021, 9:44. FINDINGS: The liver demonstrates enlarged size. The liver demonstrates generalized mildly increased echogenicity. This decreases ultrasound sensitivity for detection of hepatic masses. The main portal vein demonstrates normal size and demonstrates normal appearing, hepatopetal flow. No findings of gallstones or sludge are seen. The gallbladder wall is not thickened, measuring 3 mm or less. No specific pericholecystic fluid is seen. The sonographic Steward sign is negative. The common bile duct is mildly enlarged at 8 mm. No obstructing stones are seen. The pancreas is not seen, secondary overlying bowel gas. IMPRESSION: Normal appearing gallbladder. The common bile duct is mildly enlarged at 8 mm. No stones or other cause of obstruction can be seen. If clinically appropriate, an MRCP could be considered for further evaluation (assuming that there is no contraindication to MRI). Enlarged, fatty liver. Dictated by: Moo Gottlieb M.D. on 05/16/2022 at 13:18 Approved by: Moo Gottlieb M.D. on 05/16/2022 at 13:19
[2022-05-16 12:46] LABS: INR 1.3 (0.9-1.3); Prothrombin Time 14.2 SECONDS (10.1-12.7)
[2022-05-16 12:48] LABS: Hematocrit 20.7 % (41-53)
[2022-05-16 12:53] LABS: Creatine Kinase 42 U/L (55-170); Lactate (Lactic Acid) 1.3 mmol/L (0.7-2.1); Lipase 66 U/L (23-300); Magnesium 1.6 mg/dL (1.6-2.3)
[2022-05-16 12:54] LABS: Alanine Aminotransferase 23 IU/L (<50); Albumin 4.1 g/dL (3.5-5.0); Albumin Globulin Ratio 1.5 (1.0-2.8); Alkaline Phosphatase 73 U/L (38-126); Aspartate Aminotransferase 29 IU/L (17-59); BUN Creatinine Ratio 17.7 (6-22); Bilirubin Total 0.7 mg/dL (0.2-1.3); Blood Urea Nitrogen 17 mg/dL (9-20); Calcium 9.5 mg/dL (8.4-10.2); Carbon Dioxide 21 mmol/L (22-32); Chloride 107 mmol/L (98-107); Estimated Glomerular Filt Rate > 60 mL/min (>60); Globulin 2.8 g/dL (1.7-4.1); Glucose 65 mg/dL (80-110); HEMOLYSIS < 15 (0-50); Potassium 3.1 mmol/L (3.4-5.1); Sodium 138 mmol/L (137-145); Total Protein 6.9 g/dL (6.3-8.2)
[2022-05-16 13:01] LABS: COVID19 -Nasal RAPID Negative (Negative)
[2022-05-16 13:05] LABS: NT-proBNP (BNP-Adult 18+) 187 pg/mL (<125); Troponin I < 0.012 ng/mL (0.01-0.034)
--- NOTE | 2022-05-16 14:01 | CM.IDA ---
Initial Discharge Assessment Patient is 71 y/o male who present to ED via [facility] due to GI concerns. Patient has hx of Hypertension, type 2 diabetes, and mixed hyperlipidemia Patient's PCP is Dr. Salvador Guzman, patient has upcoming f/u appt on 06/18/22. Patient has Medicare and AARP insurance. SCOW CAPTAIN enters room to meet with patient. Patient presents as A/Ox3. Patient endorses independence with ADLs at home, states he lives alone in [place]. Patient was brought in by his neighbor, it is reported that he has neighbors, friends and family as supports. Patient denies concerns at home. Neighbor Brad endorses that she can plan to picker and packer patient upon d/c to home (Ph. # [phone]). In EMR, patient's next of kin is his brother in [place]. Patient endorses he used a cane for walking when he had hip pain but states he can walk independently. Patient denies need for HH referral and denies DCP needs upon d/c at this time. Patient endorses interest in knowing how long his hospital stay will be, patient is informed by RN that it is undetermined at this time. Per ED provider Dr. Ng, patient is in need of blood transfusion and further medical observation to identify to cause of patient's GI symptoms (black tarry stools). Plan: patient to be admitted to acute care, DCP to f/u with POC. 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 No History Provided By Patient,Medical Record Has Patient been admitted in last 30 No days? Prior Living Arrangements House Household Members none Type of transporation used prior to Drives own vehicle admit Comment Patient's neighbor drove him to Walk in clinic which led to ED visit. Neighbor states she can pick patient up upon discharge Independent with ADL's Yes Is patient alert and oriented? Yes DME Already Rented / Owned Cane Comment Patient states that he used a cane when he was having hip pain and now he no longer uses it. Comment Patient declines interest in Home Health Discharge Plan Home Transportation Arrangement Self or facility, if he goes to skilled facility Referrals Initiated None needed Review Status In Process Please Provide Date Initial DC 05/16/22 Assessment Was Performed Next Review Type Continued Stay Review
--- NOTE | 2022-05-16 15:06 | PM.HP.1 ---
History of Present Illness History of Present Illness Date Patient Seen: 05/16/22 Time Patient Seen: 15:07 Chief complaint: stomache problems, diarrhea, sent by clinic Narrative: Patient has had some vague abdominal symptoms mostly in the upper abdomen for the last couple of weeks. He is had some diminished appetite as well. Just not feeling himself. He had some diarrhea that was not frankly bloody or dark to begin with although in the last couple of days that is changed over to dark-colored stool. He presented initially to the walk-in clinic send him to the emergency department and we have subsequently admitted him No cold or flu symptoms, No real shortness of breath no chest pain no other associated symptoms feeling kind of run down and weak perhaps when closely question ER evaluation revealed his anemia and obvious guaiac-positive melanotic stool. He was hemodynamically stable and is admitted for transfusion and evaluation for source of bleeding presumably upper GI based on his symptoms and clinical picture Patient is on Plavix and aspirin for prevention of stroke with a positive history of a stroke in the past. He is also diabetic hypertensive and has an idiopathic cardiomyopathy, with a defibrillator in place because of risk of sudden cardiac . When he was seen by his bibliographic services specialist on the 08 of May was found to be modestly hypotensive and so had his amlodipine discontinued. It was after that that he began to have black-colored stool. 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 (08/20/16) Mixed hyperlipidemia Nonischemic cardiomyopathy (09/09/16) Type 2 diabetes mellitus with hyperglycemia, with long-term current use of insulin Type 2 diabetes mellitus without complication Family & Social History Social History: household members none Prior Living Arrangements House lives independently Yes caregiver/support person Yes Safety & Behavioral: Feels Safe in Current Yes Environment Been Physically Hurt or No Threatened By a Person Tobacco & Substance use: Smoking Status Never smoker alcohol intake current alcohol intake frequency 3 or more drinks per day Substance Use Type does not use Meds Home Medications and Allergies Home Medications Medication Instructions Recorded Confirmed Type spironolactone 25 mg tablet 25 mg PO QDAY #90 tabs 10/12/19 03/19/22 Rx magnesium oxide 400 mg (241.3 mg 400 mg PO DAILY 03/20/21 03/19/22 History magnesium) tablet nortriptyline 50 mg capsule See Rx Instructions PO HS #180 caps 04/30/21 03/19/22 Rx flash glucose scanning reader #1 ea 06/19/21 03/19/22 Rx (FreeStyle Tara 14 Day [place]) flash glucose sensor (FreeStyle #1 ea 06/19/21 03/19/22 Rx Tara 14 Day Sensor kit) aspirin 325 mg tablet,delayed 325 mg PO DAILY #250 tabs 07/06/21 03/19/22 Rx release sennosides 8.6 mg tablet (senna) 8.6 mg PO BEDTIME #30 tabs 07/31/21 03/19/22 Rx amlodipine 5 mg tablet 5 mg PO DAILY #90 tabs 08/02/21 03/19/22 Rx atorvastatin 20 mg tablet 20 mg PO DAILY #90 tabs 08/02/21 03/19/22 Rx penicillin V potassium 250 mg 500 mg PO ACHS #40 tabs 08/17/21 03/19/22 Rx tablet Glucose: Test Strips #500 ea 08/27/21 03/19/22 Rx blood-glucose meter (Blood Glucose #1 ea 08/27/21 03/19/22 Rx Monitoring kit) insulin NPH-regular 70-30 U-100 70 unit (0.7 mL) SUBCUT BID #200 mL 09/24/21 03/19/22 Rx insulin 100 unit/mL subcutaneous pen (Humulin 70/30 U-100 [place]) ivabradine 5 mg tablet 5 mg PO BID #180 tabs 11/05/21 03/19/22 Rx metformin 500 mg tablet,extended 1,000 mg PO BID #360 tabs 12/03/21 03/19/22 Rx release 24 hr tamsulosin 0.4 mg capsule 0.4 mg PO DAILY #90 caps 12/03/21 03/19/22 Rx clopidogrel 75 mg tablet 75 mg PO DAILY #90 tabs 01/02/22 03/19/22 Rx oxycodone 5 mg tablet 5 mg PO Q6H PRN pain #60 tabs 02/15/22 03/19/22 Rx pantoprazole 40 mg tablet,delayed 40 mg PO DAILY@0700 #90 tabs 02/28/22 03/19/22 Rx release carvedilol 25 mg tablet 25 mg PO BID 03/19/22 03/19/22 History sacubitril 24 mg-valsartan 26 mg 1 tab PO BID 03/19/22 03/19/22 History tablet (Entresto) gabapentin 300 mg capsule 300 mg PO BEDTIME #90 caps 05/07/22 Rx Allergies Allergy/AdvReac Type Severity Reaction Status Date / Time No Known Drug Allergies Allergy Verified 05/16/22 12:17 Review of Systems Review of Systems ROS: Yes All systems reviewed with the patient and are negative except as otherwise documented Exam Vital Signs (past 8 hours): - 05/16/22 12:13 05/16/22 12:12 05/16/22 12:13 Temperature 98.2 F Pulse Rate 61 64 64 Respiratory Rate 18 Blood Pressure 123/59 L Pulse Oximetry 98 98 98 Oxygen Delivery Method Room Air 05/16/22 12:13 05/16/22 12:15 05/16/22 12:15 Temperature Pulse Rate 62 Respiratory Rate 19 Blood Pressure 123/59 L 131/63 Pulse Oximetry 99 Oxygen Delivery Method 05/16/22 12:30 05/16/22 12:30 05/16/22 12:45 Temperature Pulse Rate 60 Respiratory Rate 15 Blood Pressure 109/57 L 111/57 L Pulse Oximetry 98 Oxygen Delivery Method 05/16/22 12:45 05/16/22 13:39 05/16/22 13:59 Temperature 98.0 F 97.6 F Pulse Rate 57 L 56 L 56 L Respiratory Rate 17 26 H 16 Blood Pressure 120/59 L 124/59 L Pulse Oximetry 99 Oxygen Delivery Method 05/16/22 13:00 05/16/22 13:01 05/16/22 13:01 Temperature Pulse Rate 58 L 56 L Respiratory Rate 18 16 Blood Pressure 116/59 L Pulse Oximetry 99 99 Oxygen Delivery Method 05/16/22 13:15 05/16/22 13:15 05/16/22 13:30 Temperature Pulse Rate 57 L Respiratory Rate 20 Blood Pressure 113/55 L 120/59 L Pulse Oximetry 98 Oxygen Delivery Method 05/16/22 13:30 05/16/22 13:39 05/16/22 13:39 Temperature Pulse Rate 57 L 56 L Respiratory Rate 18 19 Blood Pressure 138/63 Pulse Oximetry 97 98 Oxygen Delivery Method 05/16/22 13:45 05/16/22 13:45 05/16/22 14:00 Temperature Pulse Rate 68 Respiratory Rate 20 Blood Pressure 144/70 H 124/59 L Pulse Oximetry 99 Oxygen Delivery Method 05/16/22 14:00 05/16/22 14:15 05/16/22 14:15 Temperature Pulse Rate 54 L 54 L Respiratory Rate 15 15 Blood Pressure 120/58 L Pulse Oximetry 99 98 Oxygen Delivery Method Oxygen Delivery Method Room Air Narrative Exam Narrative: Elderly male in no obvious distress lying in hospital bed HEENT unremarkable Lungs-clear with good breath sounds Heart-regular rate and rhythm Abdomen-positive bowel tones soft minimal tenderness to deep palpation midepigastrium without rebound or guarding no organomegaly Extremities-no cyanosis clubbing or edema Neuro-alert and oriented x3 no focal findings Objective Labs Result Diagrams: 05/17/22 05:26 05/17/22 05:26 Labs: Laboratory Results - last 24 hr 05/16/22 05/16/22 05/16/22 12:26 12:26 12:26 WBC 5.6 RBC 2.40 L Hgb 7.2 L Hct 20.7 L* MCV 86.3 MCH 29.9 MCHC 34.7 RDW 15.3 H Plt Count 224 Neut % (Auto) 68.8 Lymph % (Auto) 19.9 L [place] % (Auto) 10.2 Eos % (Auto) 0.8 L Baso % (Auto) 0.3 Neut # (Auto) 3800 Lymph # (Auto) 1100 [place] # (Auto) 600 Eos # (Auto) 0 Baso # (Auto) 0 PT 14.2 H INR 1.3 Sodium 138 Potassium 3.1 L Chloride 107 Carbon Dioxide 21 L BUN 17 Creatinine 0.96 Estimated GFR > 60 BUN/Creatinine Ratio 17.7 Glucose 65 L Lactate Calcium 9.5 Magnesium Total Bilirubin 0.7 AST 29 ALT 23 Alkaline Phosphatase 73 Total Creatine Kinase CK-MB (CK-2) CK-MB (CK-2) Rel Index Troponin I NT-Pro-B Natriuret Pep Total Protein 6.9 Albumin 4.1 Globulin 2.8 Albumin/Globulin Ratio 1.5 Lipase SARS-CoV-2 (PCR) Blood Type Antibody Screen Crossmatch 05/16/22 05/16/22 05/16/22 12:26 12:26 12:26 WBC RBC Hgb Hct MCV MCH MCHC RDW Plt Count Neut % (Auto) Lymph % (Auto) [place] % (Auto) Eos % (Auto) Baso % (Auto) Neut # (Auto) Lymph # (Auto) [place] # (Auto) Eos # (Auto) Baso # (Auto) PT INR Sodium Potassium Chloride Carbon Dioxide BUN Creatinine Estimated GFR BUN/Creatinine Ratio Glucose Lactate 1.3 Calcium Magnesium 1.6 Total Bilirubin AST ALT Alkaline Phosphatase Total Creatine Kinase 42 L CK-MB (CK-2) TNP CK-MB (CK-2) Rel Index TNP Troponin I < 0.012 NT-Pro-B Natriuret Pep 187 H Total Protein Albumin Globulin Albumin/Globulin Ratio Lipase 66 SARS-CoV-2 (PCR) Blood Type O Positive Antibody Screen Negative Crossmatch See Detail 05/16/22 12:40 WBC RBC Hgb Hct MCV MCH MCHC RDW Plt Count Neut % (Auto) Lymph % (Auto) [place] % (Auto) Eos % (Auto) Baso % (Auto) Neut # (Auto) Lymph # (Auto) [place] # (Auto) Eos # (Auto) Baso # (Auto) PT INR Sodium Potassium Chloride Carbon Dioxide BUN Creatinine Estimated GFR BUN/Creatinine Ratio Glucose Lactate Calcium Magnesium Total Bilirubin AST ALT Alkaline Phosphatase Total Creatine Kinase CK-MB (CK-2) CK-MB (CK-2) Rel Index Troponin I NT-Pro-B Natriuret Pep Total Protein Albumin Globulin Albumin/Globulin Ratio Lipase SARS-CoV-2 (PCR) Negative Blood Type Antibody Screen Crossmatch Assessment & Plan Assessment & Plan narrative: 1. Acute GI bleeding with acute blood loss anemia-at this point does seem like patient more than likely than not has an upper GI bleed. Is given Protonix IV in the emergency department. Patient is chronically on Protonix orally. Will continue with parental Protonix for now until he can be evaluated with upper endoscopy. If that is negative that would pursue lower endoscopy although that seems less likely to be necessary Need to have his aspirin and Plavix held until we can establishes source of bleeding. Patient to be kept NPO until he can be seen by General surgery although I anticipate upper endoscopy probably will not happen till tomorrow. He can probably be on a liquid diet of some sort overnight, but I will leave that to surgery 2. Diabetes-patient will be kept NPO will limit his insulin for now use some IV fluids if necessary to support blood sugars while evaluating him for source of bleeding as above. 3. Nonischemic cardiomyopathy-continue patient's usual medications including his Entresto etcetera. He will need to stay off aspirin. 4. History of stroke-patient will need to be off his Plavix and aspirin until we can identify a source of bleeding in determine if it would be safe or not to resume some sort of anti-platelet therapy for stroke risk reduction 5. VTE prophylaxis-sequential compression devices appropriate any sort of anticoagulation contraindicated given his GI bleeding 6. Code status-patient appropriate for full code status 7. Hypokalemia-patient minimally hypokalemic. Will recheck after his blood transfusion which should help to raise it some Patient deserves inpatient hospitalization will likely be in the hospital greater than 48 hours to include 2 separate midnights he has significant anemia and evidence of significant GI bleeding with significant comorbidities including diabetes and is significant cardiomyopathy that increase his risk related to his bleeding and anemia. He is best monitored in hospital inpatient setting Time Spent With Patient Critical Care time: I spent a total of [] minutes of critical care time on this patient's care today; this time is exclusive of procedural time.
--- NOTE | 2022-05-16 15:26 | PC.NURSE ---
RBCs running at time of transport to inpatient rm 216. Report given to Kristin.
[2022-05-16] MEDS: DEXTROSE 10 % IN WATER 250 ML 999 ML IV (16:45)
--- NOTE | 2022-05-16 18:52 | PC.NURSE ---
Unable to complete med req, pt states, does not know what medications he takes at home and does not have a list, lives alone and doesn't have anyone that keeps track of what he takes.
--- NOTE | 2022-05-16 18:54 | PC.NURSE ---
16:05 Pt states feeling dizzy and has not had anything to eat all day, pt has history of type 2 diabetes mellitus. 16:10 Blood glucose finger stick 48 mg/dl. 16:26 Blood glucose finger stick rechecked 68 mg/dl. Dextrose IV started per provider Dr Megan das, see JAN.
--- NOTE | 2022-05-16 19:37 | PC.NURSE ---
Addendum entered by Kristin Kwon R.N. 05/17/22 17:54: Pt states, neighbor confirmed with him that she has his watch. Original Note: 15:45 Pt states that, he had a gold and silver watch when he was in the emergency room that he thinks they removed from him and gave to his neighbor. Pt does not have watch with his when he arrived to acute care unit now. Spoke to Vinicius from ED to see if they have his watch he states, checked with nurse and they have not seen it.
[2022-05-16] MEDS: METFORMIN XR 500 MG TABLET 1000 MG PO (20:43)
[2022-05-16] MEDS: GABAPENTIN 300 MG CAPSULE PO (20:43)
[2022-05-17] VITALS (17 sets, daily range): BP systolic 120–156; BP diastolic 56–73; PULSE 57–79; RESP 16–18; TEMP 35.9–36.3; O2SAT 96–99
[2022-05-17 06:21] LABS: Hematocrit 22.4 % (41-53); Hemoglobin 7.5 g/dL (13.5-17.5)
[2022-05-17 06:58] LABS: BUN Creatinine Ratio 14.8 (6-22); Blood Urea Nitrogen 13 mg/dL (9-20); Calcium 8.2 mg/dL (8.4-10.2); Carbon Dioxide 20 mmol/L (22-32); Chloride 109 mmol/L (98-107); Estimated Glomerular Filt Rate > 60 mL/min (>60); Glucose 78 mg/dL (80-110); HEMOLYSIS < 15 (0-50); Potassium 3.2 mmol/L (3.4-5.1); Sodium 139 mmol/L (137-145)
--- NOTE | 2022-05-17 07:57 | PM.PN.1 ---
Subjective Subjective Date Patient Seen: 05/17/22 Time Patient Seen: 07:57 Interval history: Patient with uneventful night Seen by General surgery this morning with plans for early afternoon endoscopy Repeat hemoglobin hematocrit show improvement but only minimal. Blood sugars have been okay Patient has remained NPO overnight Exam Vital Signs (past 8 hours): - 05/17/22 00:00 05/17/22 04:00 Temperature 96.6 F L 97.1 F L Pulse Rate 57 L 59 L Respiratory Rate 16 18 Blood Pressure 120/56 L 135/72 Pulse Oximetry 98 97 Oxygen Flow Rate 0 0 Oxygen Delivery Method Room Air Oxygen Flow Rate 0 Objective Labs Result Diagrams: 05/17/22 05:26 05/17/22 05:26 Labs: Laboratory Results - last 24 hr 05/16/22 05/16/22 05/16/22 12:26 12:26 12:26 WBC 5.6 RBC 2.40 L Hgb 7.2 L Hct 20.7 L* MCV 86.3 MCH 29.9 MCHC 34.7 RDW 15.3 H Plt Count 224 Neut % (Auto) 68.8 Lymph % (Auto) 19.9 L [place] % (Auto) 10.2 Eos % (Auto) 0.8 L Baso % (Auto) 0.3 Neut # (Auto) 3800 Lymph # (Auto) 1100 [place] # (Auto) 600 Eos # (Auto) 0 Baso # (Auto) 0 PT 14.2 H INR 1.3 Sodium 138 Potassium 3.1 L Chloride 107 Carbon Dioxide 21 L BUN 17 Creatinine 0.96 Estimated GFR > 60 BUN/Creatinine Ratio 17.7 Glucose 65 L Lactate Calcium 9.5 Magnesium Total Bilirubin 0.7 AST 29 ALT 23 Alkaline Phosphatase 73 Total Creatine Kinase CK-MB (CK-2) CK-MB (CK-2) Rel Index Troponin I NT-Pro-B Natriuret Pep Total Protein 6.9 Albumin 4.1 Globulin 2.8 Albumin/Globulin Ratio 1.5 Lipase SARS-CoV-2 (PCR) Blood Type Antibody Screen Crossmatch 05/16/22 05/16/22 05/16/22 12:26 12:26 12:26 WBC RBC Hgb Hct MCV MCH MCHC RDW Plt Count Neut % (Auto) Lymph % (Auto) [place] % (Auto) Eos % (Auto) Baso % (Auto) Neut # (Auto) Lymph # (Auto) [place] # (Auto) Eos # (Auto) Baso # (Auto) PT INR Sodium Potassium Chloride Carbon Dioxide BUN Creatinine Estimated GFR BUN/Creatinine Ratio Glucose Lactate 1.3 Calcium Magnesium 1.6 Total Bilirubin AST ALT Alkaline Phosphatase Total Creatine Kinase 42 L CK-MB (CK-2) TNP CK-MB (CK-2) Rel Index TNP Troponin I < 0.012 NT-Pro-B Natriuret Pep 187 H Total Protein Albumin Globulin Albumin/Globulin Ratio Lipase 66 SARS-CoV-2 (PCR) Blood Type O Positive Antibody Screen Negative Crossmatch See Detail 05/16/22 05/17/22 05/17/22 12:40 05:26 05:26 WBC RBC Hgb 7.5 L Hct 22.4 L MCV MCH MCHC RDW Plt Count Neut % (Auto) Lymph % (Auto) [place] % (Auto) Eos % (Auto) Baso % (Auto) Neut # (Auto) Lymph # (Auto) [place] # (Auto) Eos # (Auto) Baso # (Auto) PT INR Sodium 139 Potassium 3.2 L Chloride 109 H Carbon Dioxide 20 L BUN 13 Creatinine 0.88 Estimated GFR > 60 BUN/Creatinine Ratio 14.8 Glucose 78 L Lactate Calcium 8.2 L Magnesium Total Bilirubin AST ALT Alkaline Phosphatase Total Creatine Kinase CK-MB (CK-2) CK-MB (CK-2) Rel Index Troponin I NT-Pro-B Natriuret Pep Total Protein Albumin Globulin Albumin/Globulin Ratio Lipase SARS-CoV-2 (PCR) Negative Blood Type Antibody Screen Crossmatch [facility] Medical History Automatic implantable cardiac defibrillator in situ (~07/2019) Cerebrovascular accident Degeneration of intervertebral disc of cervical region Diabetic peripheral neuropathy (07/25/15) Essential hypertension 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 Presumed upper GI bleed with acute blood loss anemia-I think patient needs additional 2 units of packed red cells. Plan for endoscopy as noted. Continue with IV proton pump inhibitor until results of endoscopy available. Fortunately patient is minimally symptomatic and continues to be hemodynamically quite stable 2. Diabetes-patient's blood sugars adequately controlled. Has received smaller amounts of insulin because of his NPO status. Continue to monitor. 3. Nutrition/fluids-I am going to start some IV fluids given his extended duration of being NPO. I had intended actually probably to give him clear liquids overnight anticipation of a endoscopy early afternoon but does not appear surgery saw him until this morning 4. Hypokalemia-IV fluids will contain potassium and be receiving additional packed red cells. I anticipate this will drive his potassium up to some degree. Plan to recheck this as well 5. Cardiomyopathy-continue patient's usual medications Note: Greater than 30 minutes total time was spent on day of service, evaluating the patient on the floor, including examining the patient, discussing clinical course with clinical and nursing staff, reviewing clinical course in the computer, preparing documentation and writing orders for continued management of care, discussing status with family as appropriate, reviewing plans for the next 24 hours with both patient/family and nursing staff as appropriate. Quality VTE Deep Vein Thrombosis/Pulmonary Embolism Present on Admission: No
--- NOTE | 2022-05-17 09:18 | CM.DPC ---
DCP Cont: DCP spoke with pt this morning to discuss discharge needs. Pt initial assessment was done by ANGELIQUE Cooper in the ED yesterday. Per pt, pt lives in a 2 story home alone and has a neighbor, Brad, who assists him. Pt denies walker or cane and states that he still currently drives. Pt states that he has no needs at this time but will call DCP if any arise. White board updated with DCP contact information. Pt states that he had a gold watch with him when he arrived yesterday but now he is not sure where it went. DCP inquired about any one who assisted him to the ED. Pt states his neighbor, Brad, was there with him. DCP instructed to call neighbor to inquire if they may have it in their possession. RN aware and has been in contact with ED team. P: When pt medically stable for discharge, pt to discharge home via neighbor POV. Teagan Lopez RN/DCP
--- NOTE | 2022-05-17 09:28 | P.CONS_ITS ---
History of Present Illness Consult details Date Patient Seen: 05/17/22 Time Patient Seen: 09:28 Chief complaint: stomache problems, diarrhea, sent by clinic Reason for consult: severe anemia, postitive hemacult test Requesting provider: Khanh Ng Narrative: Weak and light headed. Labs show severe anemia and +hemacult of stool. No recall of blood in stool. Meds Home Medications and Allergies Home Medications Medication Instructions Recorded Confirmed Type spironolactone 25 mg tablet 25 mg PO QDAY #90 tabs 10/12/19 03/19/22 Rx magnesium oxide 400 mg (241.3 mg 400 mg PO DAILY 03/20/21 03/19/22 History magnesium) tablet nortriptyline 50 mg capsule See Rx Instructions PO HS #180 caps 04/30/21 Rx flash glucose scanning reader #1 ea 06/19/21 03/19/22 Rx (FreeStyle Tara 14 Day [place]) flash glucose sensor (FreeStyle #1 ea 06/19/21 03/19/22 Rx Tara 14 Day Sensor kit) aspirin 325 mg tablet,delayed 325 mg PO DAILY #250 tabs 07/06/21 03/19/22 Rx release sennosides 8.6 mg tablet (senna) 8.6 mg PO BEDTIME #30 tabs 07/31/21 03/19/22 Rx amlodipine 5 mg tablet 5 mg PO DAILY #90 tabs 08/02/21 03/19/22 Rx atorvastatin 20 mg tablet 20 mg PO DAILY #90 tabs 08/02/21 03/19/22 Rx penicillin V potassium 250 mg 500 mg PO ACHS #40 tabs 08/17/21 03/19/22 Rx tablet Glucose: Test Strips #500 ea 08/27/21 03/19/22 Rx blood-glucose meter (Blood Glucose #1 ea 08/27/21 03/19/22 Rx Monitoring kit) insulin NPH-regular 70-30 U-100 70 unit (0.7 mL) SUBCUT BID #200 mL 09/24/21 03/19/22 Rx insulin 100 unit/mL subcutaneous pen (Humulin 70/30 U-100 KwikPen) ivabradine 5 mg tablet 5 mg PO BID #180 tabs 11/05/21 03/19/22 Rx metformin 500 mg tablet,extended 1,000 mg PO BID #360 tabs 12/03/21 03/19/22 Rx release 24 hr tamsulosin 0.4 mg capsule 0.4 mg PO DAILY #90 caps 12/03/21 03/19/22 Rx clopidogrel 75 mg tablet 75 mg PO DAILY #90 tabs 01/02/22 03/19/22 Rx oxycodone 5 mg tablet 5 mg PO Q6H PRN pain #60 tabs 02/15/22 03/19/22 Rx pantoprazole 40 mg tablet,delayed 40 mg PO DAILY@0700 #90 tabs 02/28/22 03/19/22 Rx release carvedilol 25 mg tablet 25 mg PO BID 03/19/22 03/19/22 History sacubitril 24 mg-valsartan 26 mg 1 tab PO BID 03/19/22 03/19/22 History tablet (Entresto) gabapentin 300 mg capsule 300 mg PO BEDTIME #90 caps 05/07/22 Rx Allergies Allergy/AdvReac Type Severity Reaction Status Date / Time No Known Drug Allergies Allergy Verified 05/16/22 12:17 Review of Systems Review of Systems ROS: Yes All systems reviewed with the patient and are negative except as otherwise documented Exam Vital Signs (past 8 hours): - 05/17/22 04:00 05/17/22 08:00 05/17/22 08:30 Temperature 97.1 F L 97.2 F L 97.2 F L Pulse Rate 59 L 62 62 Respiratory Rate 18 17 17 Blood Pressure 135/72 123/57 L 123/57 L Pulse Oximetry 97 99 Oxygen Flow Rate 0 0 05/17/22 08:34 05/17/22 08:49 Temperature 97.2 F L 97.0 F L Pulse Rate 62 62 Respiratory Rate 17 18 Blood Pressure 123/57 L 120/63 Pulse Oximetry Oxygen Flow Rate Oxygen Delivery Method Room Air Oxygen Flow Rate 0 Const General: cooperative and disheveled Nutritional Appearance: average body habitus Orientation: alert and oriented x3 HENMT Head: normocephalic and atraumatic Eyes Alignment and Position: alignment normal Sclera: sclerae normal Neck Neck: trachea midline Chest Chest: normal inspection of the chest Resp Effort & Inspection: normal respiratory effort and able to speak in complete sentences Cardio Rate: regular rate Rhythm: regular rhythm GI Inspection: normal to inspection Palpation: soft Skin General: no rashes or lesions noted and turgor normal Neuro General: patient alert, patient awake and patient oriented x3 Extrem General: normal to inspection Psych Appearance: grossly normal Attitude: cooperative Judgment: judgment good Objective Labs Result Diagrams: 05/17/22 05:26 05/17/22 05:26 Labs: Laboratory Results - last 24 hr 05/16/22 05/16/22 05/16/22 12:26 12:26 12:26 WBC 5.6 RBC 2.40 L Hgb 7.2 L Hct 20.7 L* MCV 86.3 MCH 29.9 MCHC 34.7 RDW 15.3 H Plt Count 224 Neut % (Auto) 68.8 Lymph % (Auto) 19.9 L [place] % (Auto) 10.2 Eos % (Auto) 0.8 L Baso % (Auto) 0.3 Neut # (Auto) 3800 Lymph # (Auto) 1100 [place] # (Auto) 600 Eos # (Auto) 0 Baso # (Auto) 0 PT 14.2 H INR 1.3 Sodium 138 Potassium 3.1 L Chloride 107 Carbon Dioxide 21 L BUN 17 Creatinine 0.96 Estimated GFR > 60 BUN/Creatinine Ratio 17.7 Glucose 65 L Lactate Calcium 9.5 Magnesium Total Bilirubin 0.7 AST 29 ALT 23 Alkaline Phosphatase 73 Total Creatine Kinase CK-MB (CK-2) CK-MB (CK-2) Rel Index Troponin I NT-Pro-B Natriuret Pep Total Protein 6.9 Albumin 4.1 Globulin 2.8 Albumin/Globulin Ratio 1.5 Lipase SARS-CoV-2 (PCR) Blood Type Antibody Screen Crossmatch 05/16/22 05/16/22 05/16/22 12:26 12:26 12:26 WBC RBC Hgb Hct MCV MCH MCHC RDW Plt Count Neut % (Auto) Lymph % (Auto) [place] % (Auto) Eos % (Auto) Baso % (Auto) Neut # (Auto) Lymph # (Auto) [place] # (Auto) Eos # (Auto) Baso # (Auto) PT INR Sodium Potassium Chloride Carbon Dioxide BUN Creatinine Estimated GFR BUN/Creatinine Ratio Glucose Lactate 1.3 Calcium Magnesium 1.6 Total Bilirubin AST ALT Alkaline Phosphatase Total Creatine Kinase 42 L CK-MB (CK-2) TNP CK-MB (CK-2) Rel Index TNP Troponin I < 0.012 NT-Pro-B Natriuret Pep 187 H Total Protein Albumin Globulin Albumin/Globulin Ratio Lipase 66 SARS-CoV-2 (PCR) Blood Type O Positive Antibody Screen Negative Crossmatch See Detail 05/16/22 05/17/22 05/17/22 12:40 05:26 05:26 WBC RBC Hgb 7.5 L Hct 22.4 L MCV MCH MCHC RDW Plt Count Neut % (Auto) Lymph % (Auto) [place] % (Auto) Eos % (Auto) Baso % (Auto) Neut # (Auto) Lymph # (Auto) [place] # (Auto) Eos # (Auto) Baso # (Auto) PT INR Sodium 139 Potassium 3.2 L Chloride 109 H Carbon Dioxide 20 L BUN 13 Creatinine 0.88 Estimated GFR > 60 BUN/Creatinine Ratio 14.8 Glucose 78 L Lactate Calcium 8.2 L Magnesium Total Bilirubin AST ALT Alkaline Phosphatase Total Creatine Kinase CK-MB (CK-2) CK-MB (CK-2) Rel Index Troponin I NT-Pro-B Natriuret Pep Total Protein Albumin Globulin Albumin/Globulin Ratio Lipase SARS-CoV-2 (PCR) Negative Blood Type Antibody Screen Crossmatch [facility] Medical History Automatic implantable cardiac defibrillator in situ (~07/2019) Cerebrovascular accident Degeneration of intervertebral disc of cervical region Diabetic peripheral neuropathy (07/25/15) Essential hypertension residential current use of insulin (08/20/16) Mixed hyperlipidemia Nonischemic cardiomyopathy (09/09/16) Type 2 diabetes mellitus with hyperglycemia, with long-term current use of insulin Type 2 diabetes mellitus without complication Social History marital status: unmarried,single number of children: 0 household members: none lives independently: Yes caregiver/support person: Yes housing: house pets and animals: Yes education level: other (Bachelor's Degree) occupational status: other (Retired) current occupational exposures/hazards: No 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 will do EGD COVID-19 COVID-19 status: Negative Time Spent With Patient Time with patient: less than 30 minutes Critical Care time: I spent a total of [] minutes of critical care time on this patient's care today; this time is exclusive of procedural time.
--- NOTE | 2022-05-17 09:44 | PM.OP.COLON ---
Operative Date/Time/Diagnoses Date of procedure: 05/17/22 Time of procedure: 09:45 Pre-op diagnosis: Colon cancer screening Post-op diagnosis: same Procedure & Clinicians Study performed: Colonoscopy with moderate sedation Same procedure as scheduled: Yes Indications: Colon cancer screening Surgeon: Jenny Estrada Procedure Notes SCOAP/Timeout: Done Procedure in detail: Preop diagnosis: Colon cancer screening Postop diagnosis: Same Operative procedure: Colonoscopy with moderate sedation Anesthetic: Versed 5 mg, fentanyl 125 mcg Findings: Normal colonoscopy. No polyps no diverticuli Procedure: Patient placed in lateral position. Rectal exam performed showing normal tone no masses. Colonoscope inserted into the rectum and advanced to ileocecal valve with minimal difficulty. Insufflation extraction scope and the above findings. Retroflex was included in the rectum. Impression: Normal colonoscopy. Plan: Repeat colonoscopy in 10 years unless otherwise indicated by change in family history or clinical condition Sedation minutes: 14 Specimen(s): none sent Complications: none Impression: Normal colon. Post-procedure Recommendations: Colonoscopy in 10 years Follow up: as needed Disposition: PACU
[2022-05-17] MEDS: PANTOPRAZOLE 40 MG VIAL IV ×2 (11:01→20:48)
[2022-05-17] MEDS: SODIUM CHLORIDE 0.9% FLUSH 10 ML IV (11:01)
[2022-05-17] MEDS: ONDANSETRON 4 MG/2 ML INJ IV (11:44)
--- NOTE | 2022-05-17 11:55 | PM.EVENT ---
Event Note Date Patient Seen: 05/17/22 Time Patient Seen: 11:55 Event Note (Rapid Response, Code, or fall): Will postpone EGD until blood transfusions are complete and he has a good response. Plan now is Friday
--- NOTE | 2022-05-17 13:11 | PC.NURSE ---
Spoke to Dr. Guzman via phone, notified that pt is having increased nausea and unable to take his morning oral medications today. Per Dr. Guzman hold pts morning oral medications today.
[2022-05-17] MEDS: POTASSIUM CHLORIDE 30 MEQ in SODIUM CHLORIDE 0.45% 1,000 ML 100 MEQ IV (14:09)
[2022-05-17] MEDS: INSULIN LISPRO 100 UNIT/ML 3ML VIAL SUBCUT ×2 (17:06→20:59)
[2022-05-17 17:45] LABS: Hematocrit 30.2 % (41-53); Hemoglobin 10.5 g/dL (13.5-17.5)
[2022-05-17] MEDS: carvediloL 12.5 MG TABLET 25 MG PO (20:46)
[2022-05-17] MEDS: GABAPENTIN 300 MG CAPSULE PO (20:48)
[2022-05-17] MEDS: METFORMIN XR 500 MG TABLET 1000 MG PO (20:59)
[2022-05-17] MEDS: INSULIN NPH/REG 70-30 100 UNIT/ML 3ML VIAL 50 UNIT SUBCUT (21:01)
[2022-05-18] VITALS (12 sets, daily range): BP systolic 107–145; BP diastolic 44–73; PULSE 52–64; RESP 16–25; TEMP 35.6–36.4; O2SAT 94–99; BMI 28.5
--- NOTE | 2022-05-18 | PATH_ITS ---
[facility] Accession Number: [id number] . 01 Material submitted: . gastrointestinal site - ANTRAL BIOPSY . 01 Clinical history: . ANTRAL BIOPSY FOR H. PYLORI . 01 Diagnosis: Stomach, Antrum, Biopsy: Antral mucosa with no diagnostic abnormality. Negative for Helicobacter by immunohistochemistry. Negative for intestinal metaplasia. Negative for dysplasia and malignancy. [facility] 05/22/2022 0905 Local . 01 Electronically signed: . Magi Zapata MD, Pathologist NPI- [id number] . 01 Gross description: . ANTRAL BIOPSY: Received in formalin are 2 fragment(s) of merida, soft tissue measuring 0.2 x 0.2 x 0.1 cm to 0.3 x 0.2 x 0.2 cm submitted entirely in 1 cassette(s) /KARTHIKEYAN 05/20/2022 2014 Local . 01 Microscopic: . An immunohistochemical stain was performed to evaluate for Helicobacter organisms and is negative. The control stain showed appropriate reactivity. . * This test was developed and its performance characteristics determined by [facility]. It has not been cleared or approved by the U.S. Food and Drug Administration. The FDA has determined that such clearance or approval is not necessary. This test is used for clinical purposes. It should not be regarded as investigational or for research. . 01 Pathologist provided ICD-10: R10.9 . 01 CPT . 469151, P89781 Specimen Comment: A courtesy copy of this report has been sent to [phone] Performed at: 01 [facility] [address] [place] [address] [address], [place], [place] [id number] MD Yariel Jensen MD Phone: [phone]
[2022-05-18] MEDS: POTASSIUM CHLORIDE 30 MEQ in SODIUM CHLORIDE 0.45% 1,000 ML 100 MEQ IV (01:23)
[2022-05-18 06:36] LABS: Hematocrit 27.8 % (41-53); Hemoglobin 9.8 g/dL (13.5-17.5)
[2022-05-18 06:46] LABS: Blood Urea Nitrogen 10 mg/dL (9-20); Calcium 7.9 mg/dL (8.4-10.2); Carbon Dioxide 20 mmol/L (22-32); Chloride 111 mmol/L (98-107); Estimated Glomerular Filt Rate > 60 mL/min (>60); HEMOLYSIS < 15 (0-50); Potassium 3.5 mmol/L (3.4-5.1); Sodium 138 mmol/L (137-145)
[2022-05-18 07:06] LABS: Glucose 45 mg/dL (80-110)
[2022-05-18] MEDS: DEXTROSE 10 % IN WATER 250 ML 999 ML IV (07:11)
[2022-05-18] MEDS: PANTOPRAZOLE 40 MG VIAL IV (08:04)
--- NOTE | 2022-05-18 08:07 | PM.PN.1 ---
Subjective Subjective Date Patient Seen: 05/18/22 Time Patient Seen: 08:08 Interval history: Patient with no pain. Overall feeling well. Somewhat weak. Was given blood yesterday. Had 1 episode of pretty significant abdominal pain which has been not present since he got admitted. Did have persistent epigastric pain prior to admission. His sat had a bowel movement. Does not know if he has had black stool which he had prior to been admitted. Blood sugar was 45 this morning. Given juice now 150. Exam Vital Signs (past 8 hours): - 05/18/22 03:37 05/18/22 07:45 Temperature 97.5 F L 96.8 F L Pulse Rate 61 58 L Respiratory Rate 17 17 Blood Pressure 125/61 129/61 Pulse Oximetry 96 97 Oxygen Flow Rate 0 Oxygen Delivery Method Room Air Oxygen Flow Rate 0 Narrative Exam Narrative: Alert male mildly fatigued no acute distress. Bulbar conjunctiva was pink. Lungs are clear heart regular rate and rhythm abdomen is soft positive bowel sounds nontender Objective Labs Result Diagrams: 05/18/22 06:25 05/18/22 06:25 Labs: Laboratory Results - last 24 hr 05/16/22 05/17/22 05/18/22 12:26 17:24 06:25 Hgb 10.5 L 9.8 L Hct 30.2 L 27.8 L Sodium Potassium Chloride Carbon Dioxide BUN Creatinine Estimated GFR BUN/Creatinine Ratio Glucose Calcium Blood Type O Positive Antibody Screen Negative Crossmatch See Detail 05/18/22 06:25 Hgb Hct Sodium 138 Potassium 3.5 Chloride 111 H Carbon Dioxide 20 L BUN 10 Creatinine 0.83 Estimated GFR > 60 BUN/Creatinine Ratio 12.0 Glucose 45 L* Calcium 7.9 L Blood Type Antibody Screen Crossmatch [facility] Medical History Automatic implantable cardiac defibrillator in situ (~07/2019) Cerebrovascular accident Degeneration of intervertebral disc of cervical region Diabetic peripheral neuropathy (07/25/15) 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 hypertension 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 Probable upper. Given melanotic stools and upper abdominal pain. Patient with acute blood given yesterday. Hematocrit is at least stable at this point. EGD today appreciate surgeons input. Depending on that may be discharged today although I think safest would be for evaluation through the day and make sure stable over 24 hours. Will see what happens with EGD. Type 2 diabetes. Low blood sugar this morning. Will hold usual insulin. Probably secondary to NPO. Restart usual insulin this evening. Once he is taking food. Has been stable otherwise. Will follow. Continue sliding scale. Nutrition/fluids. Patient has been NPO. Will has been on fluid. Will continue with fluid until after procedure. Hypokalemia. 3.5 this morning. Recheck a.m.. Cardiomyopathy. Stable. Note: Greater than 30 minutes total time was spent on day of service, evaluating the patient on the floor, including examining the patient, discussing clinical course with clinical and nursing staff, reviewing clinical course in the computer, preparing documentation and writing orders for continued management of care, discussing status with family as appropriate, reviewing plans for the next 24 hours with both patient/family and nursing staff as appropriate. Time Spent With Patient Critical Care time: I spent a total of [] minutes of critical care time on this patient's care today; this time is exclusive of procedural time. Quality VTE Deep Vein Thrombosis/Pulmonary Embolism Present on Admission: No
--- NOTE | 2022-05-18 08:48 | PM.PREOP ---
Pre-operative Note COVID-19 COVID-19 status: Negative Criteria for continued procedure: Delay expected to result in less-positive ultimate med/surg outcome Interval Note History & Physical reviewed/Exam performed by Physician: Yes Changes to H&P: No
--- NOTE | 2022-05-18 10:42 | PM.OP.EGD ---
Operative Date/Time/Diagnoses Date of procedure: 05/18/22 Time of procedure: 10:43 Pre-op diagnosis: Upper GI bleed Post-op diagnosis: same Procedure & Clinicians Study performed: EGD with mucosal biopsy using cold forceps Same procedure as scheduled: Yes Indications: Upper GI bleed Surgeon: Jenny Estrada Procedure Notes SCOAP/Timeout: Done Procedure in detail: Prep diagnosis: Upper GI bleed Postop diagnosis: Same Operative procedure: EGD with MAC and mucosal biopsy of cold forceps Findings: Duodenal ulcer 1st portion without active bleeding. Mild gastritis, normal esophagus no hiatal hernia Anesthetic: Mac Procedure: Patient placed in a supine position. Scope inserted into the esophagus advanced to the stomach I identified the pylorus intubated and the duodenum. Insufflation extraction of the scope and the above findings. Retroflex was included in the stomach. Impression: Duodenal ulcer 1st portion posterior wall, not actively bleeding. Mild gastritis. Plan: Continue on PPI b.i.d. minimum of 8 weeks. Follow-up path findings for H.pylori and treat appropriately. Patient still needs a colonoscopy which can be done in the outpatient setting Findings: duodenal ulcer and gastritis Specimen(s): other (Antral mucosal biopsies for H pylori) Complications: none Impression: Duodenal ulcer Post-procedure Follow up: as needed Disposition: PACU
--- NOTE | 2022-05-18 11:24 | PC.NURSE ---
pt came back from OR, no pain. tolerating clear liquids.
--- NOTE | 2022-05-22 08:23 | PM.DS.1 ---
History of Present Illness History of Present Illness Date Patient Seen: 05/22/22 Time Patient Seen: 08:23 Chief complaint: stomache problems, diarrhea, sent by clinic Narrative: Admitted for severe anemia, weakness and dark stools. Discharge Providers Provider Date of admission: 05/16/22 14:46 Discharge Date: 05/18/22 Primary care physician: Salvador Guzman MD Consults: 05/16/22 12:37 Consult to POOL TABLE OPERATOR - Pharmacy Director Stat Comment: 05/16/22 16:27 Consult to Physician Routine Comment: Consulting Provider: Jenny Estrada Reason for consultation: gi bleed Has provider been notified: Yes Discharge provider: Jenny Estrada MD Summary Hospital Course Discharge Diagnosis: Transfused, placed on MVI with iron and underwent EGD and colonoscopy. No source found however dark stool at the ileocecal valve indicates UGI source. Stable for discharge with follow up at [facility] for further workup Status at Discharge Cognitive/behavioral status at discharge: at baseline, oriented Overall status at discharge: patient is back to baseline Time Spent with Patient Time spent: Less than 30 minutes Exam Vital Signs (past 8 hours): Oxygen Delivery Method Room Air Oxygen Flow Rate 0 Objective Labs Result Diagrams: 05/18/22 06:25 05/18/22 06:25 [facility] Medical History Automatic implantable cardiac defibrillator in situ (~07/2019) Cerebrovascular accident Degeneration of intervertebral disc of cervical region Diabetic peripheral neuropathy (07/25/15) Essential hypertension longterm current use of insulin (08/20/16) Mixed hyperlipidemia Nonischemic cardiomyopathy (09/09/16) Type 2 diabetes mellitus with hyperglycemia, with long-term current use of insulin Type 2 diabetes mellitus without complication Social History marital status: unmarried,single number of children: 0 household members: none lives independently: Yes caregiver/support person: Yes housing: house pets and animals: Yes education level: other (Bachelor's Degree) occupational status: other (Retired) current occupational exposures/hazards: No 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 You need an outpatient colonoscopy as well Discharge orders & Medications Prescriptions: New acetaminophen 325 mg Tablet 650 mg PO Q6HR PRN (Reason: Fever/Mild Pain (1-3)) Qty: 60 0RF oxycodone 5 mg Tablet 5 mg PO Q6H PRN (Reason: pain) Qty: 20 0RF pantoprazole [Protonix] [address] for susp in packet 40 mg PO BID Qty: 3 0RF Continued nortriptyline 50 mg capsule See Rx Instructions PO HS Qty: 180 3RF Dose Instruction: 1-2 caps PO HS; Rx Instructions: 1-2 caps PO HS; amlodipine 5 mg tablet 5 mg PO DAILY Qty: 90 1RF atorvastatin 20 mg tablet 20 mg PO DAILY Qty: 90 1RF Humulin 70/30 U-100 KwikPen 100 unit/mL (70-30) insulin pen 70 unit SUBCUT BID Qty: 200 10RF Rx Instructions: 70 units twice daily, SUBCUT ; tamsulosin 0.4 mg capsule 0.4 mg PO DAILY Qty: 90 3RF metformin 500 mg tablet extended release 24 hr 1,000 mg PO BID Qty: 360 3RF clopidogrel 75 mg tablet 75 mg PO DAILY Qty: 90 3RF oxycodone 5 mg tablet 5 mg PO Q6H PRN (Reason: pain) Qty: 60 0RF pantoprazole 40 mg tablet,delayed release (DR/EC) 40 mg PO DAILY@0700 Qty: 90 3RF gabapentin 300 mg capsule 300 mg PO BEDTIME Qty: 90 3RF Rx Instructions: patient requests this w/ dinner instead of HS magnesium oxide 400 mg (241.3 mg magnesium) tablet 400 mg PO DAILY ivabradine 5 mg tablet 5 mg PO BID Qty: 180 3RF Rx Instructions: must administer with a meal/food spironolactone 25 mg tablet 25 mg PO QDAY Qty: 90 3RF (DME) FreeStyle Tara 14 Day Sensor Kit See Rx Instructions .ROUTE .MEDSUPPLY Qty: 1 12RF Rx Instructions: As directed (DME) FreeStyle Tara 14 Day [place] Misc See Rx Instructions .ROUTE .MEDSUPPLY Qty: 1 0RF Rx Instructions: As directed (DME) blood-glucose meter [Blood Glucose Monitoring] Kit See Rx Instructions .ROUTE .MEDSUPPLY Qty: 1 0RF Rx Instructions: As directed (DME) Glucose: Test Strips 0 .Route .MEDSUPPLY Qty: 500 11RF Rx Instructions: Use as directed to check blood sugar up to 4 times daily Entresto 24-26 mg tablet 1 tab PO BID carvedilol 25 mg tablet 25 mg PO BID Rx Instructions: must administer with a meal/food penicillin V potassium 250 mg Tablet 500 mg PO ACHS Qty: 40 0RF aspirin 325 mg Tablet,Delayed Release (Dr/Ec) 325 mg PO DAILY Qty: 250 0RF sennosides [senna] 8.6 mg Tablet 8.6 mg PO BEDTIME Qty: 30 0RF Follow up/Referrals: Salvador Guzman MD [Primary Care Provider] - Diet/Activity/Treatments Diet: Diet as Tolerated Visit Report/Discharge Packet Instructions: Duodenal Ulcer, Upper GI Endoscopy, DI for Gastritis, DI for Gastric Ulcer, DI for Prescription Opioid Use, EGD Discharge Instructions Stand Alone Forms: EGD Result: [place] Surg Discharge Data Primary Care Provider: Salvador Guzman Quality VTE Deep Vein Thrombosis/Pulmonary Embolism Present on Admission: No
== END 2022-05-18 14:54 | disposition home or self-care (01) | DRG 378 ==
LOC: ED 14:38 → AC 14:47
PROVIDERS: Surgery; Admitting Provider Internal Medicine; Emergency Provider Emergency Medicine; PCP Internal Medicine; Referring Provider Emergency Medicine; Visit Provider Internal Medicine
PROC: 0DJ08ZZ Inspection of Upper Intestinal Tract, Via Natural or Artificial Opening Endoscopic (ICD-10-PCS; CPT 43235; principal; 2022-05-18 09:00)
DX: K26.4 Chronic or unspecified duodenal ulcer with hemorrhage (principal); D62 Acute posthemorrhagic anemia; I42.8 Other cardiomyopathies; E87.6 Hypokalemia; E11.9 Type 2 diabetes mellitus without complications; K29.70 Gastritis, unspecified, without bleeding; E78.5 Hyperlipidemia, unspecified; I10 Essential (primary) hypertension; Z20.822 Contact with and (suspected) exposure to COVID-19; Z86.73 Personal history of transient ischemic attack (TIA), and cerebral infarction without residual deficits; Z79.01 Long term (current) use of anticoagulants; Z79.84 Long term (current) use of oral hypoglycemic drugs; Z79.4 Long term (current) use of insulin
CPT/HCPCS: 36415; 36430; 43239; 76705; 80048; 80053; 82550; 82962; 83605; 83690; 83735; 83880; 84484; 85014; 85018; 85025; 85610; 86850; 86900; 86901; 87635; 93005; 93010; 96374; 99223; 99232; 99233; 99238; 99284; C9803; P9016; C9113; J1815; J2250; J2405; J2704; J3010; J3480; J7050

== ENCOUNTER → 2022-06-13 10:42 | Outpatient (CLI) | payer MEDICARE, SELFPAY ==
[2022-05-16 15:42] VITALS: BMI 29.2
[2022-06-13 12:32] LABS: BUN Creatinine Ratio 16.3 (6-22); Blood Urea Nitrogen 14 mg/dL (9-20); Calcium 8.5 mg/dL (8.4-10.2); Carbon Dioxide 23 mmol/L (22-32); Chloride 106 mmol/L (98-107); Estimated Glomerular Filt Rate > 60 mL/min (>60); Glucose 91 mg/dL (80-110); HEMOLYSIS < 15 (0-50); Potassium 4.3 mmol/L (3.4-5.1); Sodium 139 mmol/L (137-145)
[2022-06-13 12:33] LABS: Microalbumin Urine Random 6.2 mg/dL (0-1.6)
[2022-06-13 12:35] LABS: Creatinine Urine Random 162.7 mg/dL; Microalbumi Creatinin Ratio Ur 38.1 ug/mg CR (<30)
== END ==
PROVIDERS: PCP Internal Medicine; Referring Provider Internal Medicine; Visit Provider Internal Medicine
DX: E11.65 Type 2 diabetes mellitus with hyperglycemia (principal); I10 Essential (primary) hypertension; Z79.4 Long term (current) use of insulin
CPT/HCPCS: 36415; 80048; 82043; 82570; 83036

== ENCOUNTER → 2022-06-18 12:07 | Outpatient (CLI) | payer MEDICARE, SELFPAY ==
[2022-05-16 15:42] VITALS: BMI 29.2
--- NOTE | 2022-06-18 12:21 | DI.RAD.S_ITS ---
PROCEDURE: XR CHEST 2V INDICATIONS: DEFIBRILLATOR TECHNIQUE: 2 views of the chest were acquired. COMPARISON: Located Within [facility], , XR CHEST 1V, 07/30/2021, 1:01. FINDINGS: Surgical changes and devices: Single lead defibrillator is redemonstrated. Lungs and pleura: Lungs are clear. No pleural effusions or pneumothorax. Mediastinum: Mediastinal contours are normal. Heart size is normal. Bones and chest wall: No suspicious bony abnormalities. Soft tissues appear unremarkable. IMPRESSION: No acute cardiopulmonary findings. Dictated by: Taty Carvalho M.D. on 06/18/2022 at 16:44 Approved by: Taty Carvalho M.D. on 06/18/2022 at 16:44
== END ==
PROVIDERS: PCP Internal Medicine; Referring Provider Orthopaedic Surgery; Visit Provider Orthopaedic Surgery
DX: Z95.810 Presence of automatic (implantable) cardiac defibrillator (principal); Z09 Encounter for follow-up examination after completed treatment for conditions other than malignant neoplasm
CPT/HCPCS: 71046

== ENCOUNTER → 2022-09-12 11:48 | Outpatient (CLI) | payer MEDICARE, SELFPAY ==
[2022-05-16 15:42] VITALS: BMI 29.2
[2022-09-12 13:40] LABS: Hematocrit 33.2 % (41-53); Hemoglobin 10.9 g/dL (13.5-17.5)
[2022-09-12 14:01] LABS: Hemoglobin A1C% w Est Avg Glu 9.2 % (4.0-6.0)
[2022-09-12 14:15] LABS: Alanine Aminotransferase 17 IU/L (<50); Albumin Globulin Ratio 1.2 (1.0-2.8); Alkaline Phosphatase 72 U/L (38-126); Aspartate Aminotransferase 23 IU/L (17-59); BUN Creatinine Ratio 13.3 (6-22); Bilirubin Total 0.6 mg/dL (0.2-1.3); Blood Urea Nitrogen 11 mg/dL (9-20); Calcium 7.5 mg/dL (8.4-10.2); Carbon Dioxide 23 mmol/L (22-32); Chloride 100 mmol/L (98-107); Estimated Glomerular Filt Rate > 60 mL/min (>60); Globulin 3.3 g/dL (1.7-4.1); Glucose 189 mg/dL (80-110); HEMOLYSIS < 15 (0-50); Potassium 3.2 mmol/L (3.4-5.1); Sodium 135 mmol/L (137-145); Total Protein 7.3 g/dL (6.3-8.2)
== END ==
PROVIDERS: PCP Internal Medicine; Referring Provider Internal Medicine; Visit Provider Internal Medicine
DX: E11.65 Type 2 diabetes mellitus with hyperglycemia (principal); E78.2 Mixed hyperlipidemia; I10 Essential (primary) hypertension; Z79.4 Long term (current) use of insulin
CPT/HCPCS: 36415; 80053; 83036; 85014; 85018

== ENCOUNTER 2022-10-15 12:40 | Observation (INO) | payer MEDICARE, SELFPAY ==
[2022-05-16 15:42] VITALS: BMI 29.2
[2022-10-15] VITALS (15 sets, daily range): BP systolic 115–148; BP diastolic 58–71; PULSE 67–82; RESP 15–23; TEMP 35.8–36.7; O2SAT 94–99; BMI 29.0; BMI 29.8
--- NOTE | 2022-10-15 12:53 | DI.CT.S_ITS ---
PROCEDURE: CT HEAD/BRAIN WO CON INDICATIONS: tingling in arm/leg,slurred speech possible TECHNIQUE: Noncontrast 4.5 mm thick angled axial sections acquired from the foramen magnum to the vertex, with coronal and sagittal reformats. For radiation dose reduction, the following was used: automated exposure control, adjustment of mA and/or kV according to patient size. COMPARISON: [facility], CT, CT HEAD/BRAIN WO CON, 08/15/2021, 1:48. FINDINGS: Image quality: Excellent. CSF spaces: Basal cisterns are patent. No extra-axial fluid collections. Ventricles are normal in size and shape. Brain: No midline shift. No intracranial masses or hemorrhage. No area of hypodensity in a large vascular distribution to suggest acute infarction. Periventricular hypodensity consistent with chronic microvascular ischemic change. Atherosclerotic calcification within the V4 vertebral arteries. Terminal ICA atherosclerotic calcifications. Age-related parenchymal loss. Skull and face: Calvarium and visualized facial bones are intact, without suspicious lesions. Sinuses: Extensive mucosal thickening in the right maxillary sinus. Minimal mucosal thickening in the ethmoid sinuses. Mastoids are clear. IMPRESSION: No acute intracranial abnormality. Right maxillary sinusitis. Dictated by: Hugo Noland M.D. on 10/15/2022 at 13:41 Approved by: Hugo Noland M.D. on 10/15/2022 at 13:44
--- NOTE | 2022-10-15 12:54 | DI.US.S_ITS ---
PROCEDURE: US PERIPH VENOUS UP EXTREM LT INDICATIONS: swelling/tingling left extremities. TECHNIQUE: Real-time imaging, as well as color and pulse Doppler interrogation, was performed of the left upper extremity deep veins from the inferior neck to the antecubital fossa. COMPARISON: None. FINDINGS: The internal jugular vein, visualized portions of the subclavian vein, axillary, and brachial veins are free of intraluminal thrombus. Where physically possible, the veins are normally compressible. Color and pulse Doppler demonstrate normal intraluminal flow, with expected phasicity and pulsatility. Additional scanning of the cephalic and basilic veins of the superficial system demonstrate normal compressibility, without thrombus. IMPRESSION: No evidence of deep vein thrombosis involving the left upper extremity. Dictated by: Mima Reece MD, PhD on 10/15/2022 at 14:34 Approved by: Mima Reece MD, PhD on 10/15/2022 at 14:34
--- NOTE | 2022-10-15 12:54 | DI.US.S_ITS ---
PROCEDURE: US PERIPH VENOUS LOW EXTREM LT INDICATIONS: swelling/tingling left extremities. TECHNIQUE: Real-time imaging, as well as color and pulse Doppler interrogation, were performed of the left lower extremity deep veins from the inguinal ligament to the popliteal fossa. COMPARISON: None. FINDINGS: The common femoral, femoral and popliteal veins are normally compressible, and free of intraluminal thrombus. Color and pulse Doppler demonstrate normal phasic intraluminal flow. There is normal augmentation response to distal compression maneuver. IMPRESSION: No evidence of deep vein thrombosis involving the left lower extremity. Dictated by: Mima Reece MD, PhD on 10/15/2022 at 14:35 Approved by: Mima Reece MD, PhD on 10/15/2022 at 14:35
--- NOTE | 2022-10-15 12:54 | DI.RAD.S_ITS ---
PROCEDURE: XR CHEST 1V INDICATIONS: chest pain TECHNIQUE: One view of the chest was acquired. COMPARISON: [facility], CR, XR CHEST 1V, 07/30/2021, 1:01. FINDINGS: Surgical changes and devices: Stable cardiac pacer. Lungs and pleura: Lungs are clear. No pleural effusions or pneumothorax. Mediastinum: Mediastinal contours appear normal. Heart size is normal. Bones and chest wall: No suspicious bony lesions. Overlying soft tissues appear unremarkable. IMPRESSION: No acute cardiopulmonary disease process. Dictated by: Mima Reece MD, PhD on 10/15/2022 at 13:24 Approved by: Mima Reece MD, PhD on 10/15/2022 at 13:24
[2022-10-15 13:13] LABS: Add Manual Diff / Slide Review NO; Basophils Absolute Auto 0 /uL (0-100); Basophils Percent Auto 0.3 % (0-2); Eosinophils Absolute Auto 200 /uL (0-450); Eosinophils Percent Auto 4.5 % (2-4); Hematocrit 30.7 % (41-53); Hemoglobin 10.1 g/dL (13.5-17.5); Lymphocytes Absolute Auto 900 /uL (1100-4500); Lymphocytes Percent Auto 18.4 % (25-40); Mean Corpuscular Hemoglobin 26.3 PG (26-34); Mean Corpuscular Volume 79.8 fL (80-100); Monocytes Absolute Auto 400 /uL (0-900); Monocytes Percent Auto 8.6 % (3-14); Neutrophils Absolute Auto 3300 /uL (1500-7000); Neutrophils Percent Auto 68.2 % (50-75); Platelet Count 162 X10^3/uL (150-400); Red Blood Cell Count 3.85 X10^6/uL (4.5-5.9); Red Cell Distribution Width 16.1 % (11.6-14.8); White Blood Cell Count 4.8 X10^3/uL (4.5-11.0)
[2022-10-15 13:26] LABS: INR 1.1 (0.9-1.3); Prothrombin Time 12.6 SECONDS (10.1-12.7)
[2022-10-15 13:28] LABS: PTT Partial Thromboplastin Tim 29 SECONDS (26-36)
[2022-10-15 13:30] LABS: Alanine Aminotransferase 19 IU/L (<50); Albumin 4.1 g/dL (3.5-5.0); Albumin Globulin Ratio 1.3 (1.0-2.8); Alkaline Phosphatase 65 U/L (38-126); Aspartate Aminotransferase 25 IU/L (17-59); BUN Creatinine Ratio 16.7 (6-22); Bilirubin Total 0.4 mg/dL (0.2-1.3); Blood Urea Nitrogen 12 mg/dL (9-20); Calcium 7.7 mg/dL (8.4-10.2); Carbon Dioxide 18 mmol/L (22-32); Chloride 108 mmol/L (98-107); Creatine Kinase 201 U/L (55-170); Estimated Glomerular Filt Rate > 60 mL/min (>60); Globulin 3.1 g/dL (1.7-4.1); Glucose 108 mg/dL (80-110); HEMOLYSIS < 15 (0-50); Lipase 159 U/L (23-300); Potassium 3.8 mmol/L (3.4-5.1); Sodium 138 mmol/L (137-145); Total Protein 7.2 g/dL (6.3-8.2)
[2022-10-15 13:32] LABS: Magnesium 0.8 mg/dL (1.6-2.3)
[2022-10-15 13:42] LABS: Troponin I < 0.012 ng/mL (0.01-0.034)
[2022-10-15 13:46] LABS: CKMB % Relative Index 0.1 % (1.5-5.0); Creatine Kinase MB < 0.22 ng/mL (<2.37)
[2022-10-15] MEDS: MAGNESIUM SULFATE 2 GM/50 ML PIGGYBACK IV (17:01)
--- NOTE | 2022-10-15 19:46 | ED.NEUROSD ---
HPI - Neuro Symptoms/Deficit General Chief Complaint: Neuro Symptoms/Deficit Stated Complaint: thinks he is having a stroke Time Seen by Provider: 10/15/22 16:10 Source: patient Mode of arrival: Wheelchair History of Present Illness HPI Narrative: Patient here with neighbor. Neighbor brought patient here. At noon time today last well known 12:00 p.m.. Patient had sudden onset left-sided numbness weakness and arm and leg swelling. He called his neighbor and neighbor did notice some slow slurred speech for an hour and a half duration. This has resolved. Patient denies any headache. Chest pain palpitations. Patient states over the course the afternoon symptoms have resolved. Patient was here many hours prior to my arrival of starting my shift in seeing the patient. Patient has history of stroke in July 2021. Can not have MRI due to pacemaker. Patient is on aspirin and Plavix at home On Anticoagulants: No Related Data Home Medications Medication Instructions Recorded Confirmed magnesium oxide 400 mg (241.3 mg 400 mg PO DAILY 03/20/21 10/15/22 magnesium) tablet sacubitril 24 mg-valsartan 26 mg 1 tab PO BID 03/19/22 10/15/22 tablet (Entresto) pantoprazole 40 mg tablet,delayed 40 mg PO DAILY 09/17/22 10/15/22 release trazodone 50 mg tablet 50 mg PO BEDTIME 09/17/22 10/15/22 Previous Rx's Medication Instructions Recorded nortriptyline 50 mg capsule See Rx Instructions PO HS #180 caps 04/30/21 aspirin 325 mg tablet,delayed 325 mg PO DAILY #250 tabs 07/06/21 release Glucose: Test Strips #500 ea 08/27/21 blood-glucose meter (Blood Glucose #1 ea 08/27/21 Monitoring kit) insulin NPH-regular 70-30 U-100 70 unit (0.7 mL) SUBCUT BID #200 mL 09/24/21 insulin 100 unit/mL subcutaneous pen (Humulin 70/30 U-100 Jeane) ivabradine 5 mg tablet 5 mg PO BID #180 tabs 11/05/21 metformin 500 mg tablet,extended 1,000 mg PO BID #360 tabs 12/03/21 release 24 hr clopidogrel 75 mg tablet 75 mg PO DAILY #90 tabs 01/02/22 acetaminophen 325 mg tablet 650 mg PO Q6HR PRN Fever/Mild Pain 05/18/22 (1-3) #60 tabs amlodipine 5 mg tablet 5 mg PO DAILY #90 tabs 05/31/22 atorvastatin 20 mg tablet 20 mg PO DAILY #90 tabs 05/31/22 flash glucose scanning reader #1 ea 06/20/22 (FreeStyle Tara 14 Day Hector) flash glucose sensor (FreeStyle #1 ea 06/20/22 Tara 14 Day Sensor kit) blood-glucose meter,continuous #1 ea 06/26/22 (Dexcom G6 Degreaser misc) blood-glucose sensor (Dexcom G6 #3 ea 06/26/22 Sensor device) blood-glucose transmitter (Dexcom #1 ea 06/26/22 G6 Transmitter device) carvedilol 25 mg tablet 25 mg PO BID #180 tabs 09/02/22 gabapentin 300 mg capsule 600 mg PO QPM #180 caps 09/17/22 oxycodone 5 mg tablet 5 mg PO Q6H PRN pain #60 tabs 09/17/22 tamsulosin 0.4 mg capsule 0.4 mg PO DAILY #90 caps 10/14/22 Allergies Allergy/AdvReac Type Severity Reaction Status Date / Time No Known Drug Allergies Allergy Verified 10/15/22 12:45 Review of Systems Review of Systems Narrative: GENERAL: negative chills, fatigue, malaise, fever, sweats. HEENT: negative sinus pain, ear pain, sore throat RESPIRATORY: negative dyspnea, cough CARDIOVASCULAR: negative chest pain, palpitations GASTROINTESTINAL: negative nausea, vomiting, abdominal pain : negative dysuria, frequency, hematuria MUSCULOSKELETAL: negative muscle or bony pain SKIN: negative rash, skin lesions NEUROLOGIC: Positive weakness, numbness, slurred speech, negative facial droop ROS Unobtainable: All systems reviewed & are unremarkable except as noted in HPI and below Hematologic/Lymphatic On Anticoagulants: No Patient History Medical History Acute GI bleeding Automatic implantable cardiac defibrillator in situ (~07/2019) Cerebrovascular accident Degeneration of intervertebral disc of cervical region Diabetic peripheral neuropathy (07/25/15) Essential hypertension senior care current use of insulin (08/20/16) Mixed hyperlipidemia Nonischemic cardiomyopathy (09/09/16) Type 2 diabetes mellitus with hyperglycemia, with long-term current use of insulin Type 2 diabetes mellitus without complication Social History marital status: unmarried,single number of children: 0 household members: none lives independently: Yes caregiver/support person: Yes housing: house pets and animals: Yes education level: other (Bachelor's Degree) occupational status: other (Retired) current occupational exposures/hazards: No 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/yazdanism: Zoroastrian travel history: recent leisure activities: music, reading and other (Hiking.) Smoking Status: Never smoker quit status: quit date established second hand exposure: No alcohol intake: current substance use type: does not use Smoking Status: Never smoker alcohol intake frequency: a few times a week Alcohol type: hard liquor Substance Use Type: does not use Exam Narrative Exam Narrative: GENERAL: in no distress, not toxic not dyspneic HEAD: Normocephalic. EYES: Pupils equal round No scleral icterus. ENT: Mucous membranes moist. NECK: Trachea midline. CARDIOVASCULAR: Regular rate and rhythm without murmurs RESPIRATORY: Clear to auscultation. Breath sounds equal bilaterally. No wheezes, rales, or rhonchi. GASTROINTESTINAL: Abdomen soft, non-tender EXTREMITIES: No gross deformities. Slightly edematous left hand. BACK: No flank tenderness. NEURO: AOx4. Clear speech no facial droop light touch intact bilateral face and hands and legs. 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 Negative pronator drift. Finger-nose intact. SKIN: Warm and dry PSYCH: Not anxious, is cooperative Initial Vital Signs Initial Vital Signs: Vital Signs Temperature 96.4 F L 10/15/22 12:45 Pulse Rate 72 10/15/22 12:45 Respiratory Rate 15 10/15/22 12:45 Blood Pressure 115/59 L 10/15/22 12:45 Pulse Oximetry 98 10/15/22 12:45 Oxygen Delivery Method 10/15/22 12:45 Scores NIH Stroke Scale Level of Conciousness: Alert, keenly responsive Ask month/age: Answers both questions correctly. Open/close eyes, close hand: Performs both tasks correctly Best gaze horizontal: Normal Visual schneider: No visual loss Facial palsy: Normal symetrical movement Left arm drift: No drift for full 10 sec Right arm drift: No drift for full 10 sec Left leg drift: No drift for full 5 sec Right leg drift: No drift for full 5 sec Limb ataxia: Absent Sensory on face/arms/legs: Normal, no sensory loss Best language: No aphasia, normal Dysarthria: Normal Extinction or inattention: No abnormality Total NIH Stroke scale score: 0 Course Course Course Narrative: No new issues during course of stay Decision to Admit Date: 10/15/22 Decision to Admit time: 19:53 Orders Ordered: Acetaminophen (Acetaminophen 325 Mg Tablet) 650 mg PO Q6H PRN PRN Reason: Fever/Mild Pain (1-3) Amlodipine Besylate (Amlodipine 5 Mg Tablet) 5 mg PO DAILY [facility] Aspirin (Aspirin Ec 325 Mg Tablet) 325 mg PO DAILY [facility] Atorvastatin Calcium (Atorvastatin 20 Mg Tablet) 20 mg PO DAILY [facility] Carvedilol (Carvedilol 12.5 Mg Tablet) 25 mg PO BID [facility] Clopidogrel Bisulfate (Clopidogrel 75 Mg Tablet) 75 mg PO DAILY [facility] Dextrose (Dextrose 50 % In Water 25 Gm/50 Ml Syringe) 25 gm IV PRN PRN PRN Reason: Hypoglycemia Enoxaparin Sodium (Enoxaparin 40 Mg/0.4 Ml Syringe) 40 mg SUBCUT DAILY [facility] Gabapentin (Gabapentin 300 Mg Capsule) 600 mg PO QPM [facility] Influenza Virus Vaccine (Influenza Hd Vaccine 0.7 Ml Syringe) 0.7 ml IM .ONCE ONE Stop: 10/16/22 09:01 Insulin Human Isoph/Insulin Regular (Insulin Nph/Reg 70-30 100 Unit/Ml 3ml Vial) 70 unit SUBCUT BID [facility] Insulin Human Lispro (Insulin Lispro 100 Unit/Ml 3ml Vial) 0 unit SUBCUT [facility]; Protocol Last Admin: 10/15/22 21:57 Dose: Not Given Documented By: [facility] Magnesium Oxide (Magnesium Oxide 400 Mg Tablet) 400 mg PO BID [facility] Last Admin: 10/15/22 22:05 Dose: 400 mg Documented By: [facility] Metformin HCl (Metformin Xr 500 Mg Tablet) 1,000 mg PO BID [facility] Last Admin: 10/15/22 22:05 Dose: 1,000 mg Documented By: [facility] Naloxone HCl (Naloxone 0.4 Mg/Ml Vial) 0.2 mg IV Q2MIN PRN PRN Reason: Opiate Reversal Non-Formulary Medication (Ivabradine) 5 mg PO BID [facility] Last Admin: 10/15/22 21:58 Dose: Not Given Documented By: [facility] Non-Formulary Medication (Sacubitril-Valsartan [Entresto]) 1 tab PO BID [facility] Last Admin: 10/15/22 21:58 Dose: Not Given Documented By: RIMA Nortriptyline HCl (Nortriptyline Hcl 25 Mg Capsule) 50 mg PO BEDTIME [facility] Last Admin: 10/15/22 22:05 Dose: 50 mg Documented By: RIMA Oxycodone HCl (Oxycodone Ir 5 Mg Tablet) 5 mg PO Q6H PRN PRN Reason: pain Last Admin: 10/16/22 04:26 Dose: 5 mg Documented By: RIMA Pantoprazole Sodium (Pantoprazole Dr 40 Mg Tablet) 40 mg PO DAILY [facility] Sennosides (Sennosides 8.6 Mg Tablet) 8.6 mg PO BEDTIME [facility] Last Admin: 10/15/22 21:58 Dose: Not Given Documented By: RIMA Sodium Chloride (Sodium Chloride 0.9% Flush) 10 ml IV PRN PRN PRN Reason: Flush Sodium Chloride (Sodium Chloride 0.9% Flush) 10 ml IV BID [facility] Spironolactone (Spironolactone 25 Mg Tablet) 25 mg PO DAILY [facility] Tamsulosin HCl (Tamsulosin 0.4 Mg Capsule) 0.4 mg PO DAILY [facility] Trazodone HCl (Trazodone 50 Mg Tablet) 50 mg PO DAILY [facility] Discontinued Medications Magnesium Sulfate (Magnesium Sulfate) 2 gm in 50 mls @ 25 mls/hr IV NOW ONE Stop: 10/15/22 18:46 Last Infusion: 10/15/22 19:21 Dose: 0 mls/hr Documented By: RB Co-signed By: AP Admin: 10/15/22 17:01 Dose: 25 mls/hr Documented By: RB Co-signed By: ANN Sodium Chloride (Normal Saline 0.9%) 500 mls @ 1,000 mls/hr IV BOLUS ONE Stop: 10/15/22 20:17 Last Infusion: 10/15/22 20:55 Dose: 0 mls/hr Documented By: Admin: 10/15/22 20:19 Dose: 1,000 mls/hr Documented By: RB Reevaluation(s) Reevaluation #1: Reviewed results with patient. Patient understands he likely had a TIA/mini stroke. Symptoms resolved. Time: 19:56 Consultations Consultation #1: Spoke with Dr. Guzman, primary care on-call. He will admit patient. Agrees no neuro consult this time as symptoms have resolved. Time: 19:56 Vital Signs Vital signs: Vital Signs - 8 hr 10/15/22 12:45 10/15/22 15:15 10/15/22 16:12 Temperature 96.4 F L 97.8 F Pulse Rate 72 82 77 Respiratory Rate 15 Blood Pressure 115/59 L 117/59 L 120/62 Pulse Oximetry 98 98 99 Oxygen Delivery Method Room Air Room Air Room Air 10/15/22 16:08 10/15/22 16:10 10/15/22 16:10 Temperature Pulse Rate 82 71 Respiratory Rate 22 Blood Pressure 120/62 Pulse Oximetry 98 Oxygen Delivery Method 10/15/22 16:30 10/15/22 16:30 10/15/22 17:00 Temperature Pulse Rate 76 Respiratory Rate Blood Pressure 116/58 L 145/69 H Pulse Oximetry 97 Oxygen Delivery Method 10/15/22 17:00 10/15/22 17:30 10/15/22 17:30 Temperature Pulse Rate 79 67 Respiratory Rate 20 Blood Pressure 136/63 Pulse Oximetry 98 95 Oxygen Delivery Method 10/15/22 18:00 10/15/22 18:00 Temperature Pulse Rate 70 Respiratory Rate 20 Blood Pressure 125/59 L Pulse Oximetry 95 Oxygen Delivery Method MDM - Neuro Symptoms/Deficit Lab Data Result diagrams: 10/15/22 13:00 10/15/22 13:00 Labs: Lab Results 10/15/22 10/15/22 10/15/22 Range/Units 13:00 13:00 13:00 WBC 4.8 (4.5-11.0) X10^3/uL RBC 3.85 L (4.5-5.9) X10^6/uL Hgb 10.1 L (13.5-17.5) g/dL Hct 30.7 L (41-53) % MCV 79.8 L (80-100) fL MCH 26.3 (26-34) PG MCHC 33.0 (30-36) % RDW 16.1 H (11.6-14.8) % Plt Count 162 (150-400) X10^3/uL Neut % (Auto) 68.2 (50-75) % Lymph % (Auto) 18.4 L (25-40) % Brooks % (Auto) 8.6 (3-14) % Eos % (Auto) 4.5 H (2-4) % Baso % (Auto) 0.3 (0-2) % Neut # (Auto) 3300 (5263-2736) /uL Lymph # (Auto) 900 L (2341-7645) /uL Brooks # (Auto) 400 (0-900) /uL Eos # (Auto) 200 (0-450) /uL Baso # (Auto) 0 (0-100) /uL PT 12.6 (10.1-12.7) SECONDS INR 1.1 (0.9-1.3) APTT 29 (26-36) SECONDS Sodium 138 (137-145) mmol/L Potassium 3.8 (3.4-5.1) mmol/L Chloride 108 H (98-107) mmol/L Carbon Dioxide 18 L (22-32) mmol/L BUN 12 (9-20) mg/dL Creatinine 0.72 (0.66-1.25) mg/dL Estimated GFR > 60 (>60) mL/min BUN/Creatinine Ratio 16.7 (6-22) Glucose 108 (80-110) mg/dL Calcium 7.7 L (8.4-10.2) mg/dL Magnesium 0.8 L* (1.6-2.3) mg/dL Total Bilirubin 0.4 (0.2-1.3) mg/dL AST 25 (17-59) IU/L ALT 19 (<50) IU/L Alkaline Phosphatase 65 (38-126) U/L Total Creatine Kinase 201 H (55-170) U/L CK-MB (CK-2) < 0.22 (<2.37) ng/mL CK-MB (CK-2) Rel Index 0.1 L (1.5-5.0) % Troponin I < 0.012 (0.01-0.034) ng/mL Total Protein 7.2 (6.3-8.2) g/dL Albumin 4.1 (3.5-5.0) g/dL Globulin 3.1 (1.7-4.1) g/dL Albumin/Globulin Ratio 1.3 (1.0-2.8) Lipase 159 (23-300) U/L SARS-CoV-2 (PCR) (Negative) 10/15/22 Range/Units 19:49 WBC (4.5-11.0) X10^3/uL RBC (4.5-5.9) X10^6/uL Hgb (13.5-17.5) g/dL Hct (41-53) % MCV (80-100) fL MCH (26-34) PG MCHC (30-36) % RDW (11.6-14.8) % Plt Count (150-400) X10^3/uL Neut % (Auto) (50-75) % Lymph % (Auto) (25-40) % Brooks % (Auto) (3-14) % Eos % (Auto) (2-4) % Baso % (Auto) (0-2) % Neut # (Auto) (0256-1686) /uL Lymph # (Auto) (7582-4371) /uL Brooks # (Auto) (0-900) /uL Eos # (Auto) (0-450) /uL Baso # (Auto) (0-100) /uL PT (10.1-12.7) SECONDS INR (0.9-1.3) APTT (26-36) SECONDS Sodium (137-145) mmol/L Potassium (3.4-5.1) mmol/L Chloride (98-107) mmol/L Carbon Dioxide (22-32) mmol/L BUN (9-20) mg/dL Creatinine (0.66-1.25) mg/dL Estimated GFR (>60) mL/min BUN/Creatinine Ratio (6-22) Glucose (80-110) mg/dL Calcium (8.4-10.2) mg/dL Magnesium (1.6-2.3) mg/dL Total Bilirubin (0.2-1.3) mg/dL AST (17-59) IU/L ALT (<50) IU/L Alkaline Phosphatase (38-126) U/L Total Creatine Kinase (55-170) U/L CK-MB (CK-2) (<2.37) ng/mL CK-MB (CK-2) Rel Index (1.5-5.0) % Troponin I (0.01-0.034) ng/mL Total Protein (6.3-8.2) g/dL Albumin (3.5-5.0) g/dL Globulin (1.7-4.1) g/dL Albumin/Globulin Ratio (1.0-2.8) Lipase (23-300) U/L SARS-CoV-2 (PCR) Negative (Negative) Imaging Data Chest x-ray: Radiologist's Impression: [address] [address] XRay Report Signed Patient: Randolph Cisneros MR#: [id number] : 1950 Acct:[id number] Age/Sex: 71 / M Date of Service: 10/15/22 Loc: ED Accession Number: [id number] ?? Procedure: XR chest 1V Ordering Provider: Nilda Garcia D.O. PROCEDURE:? XR CHEST 1V ? INDICATIONS:? chest pain ? TECHNIQUE:? One view of the chest was acquired.? ? COMPARISON:? [facility], , XR CHEST 1V, 07/30/2021, 1:01. ? FINDINGS:? ? Surgical changes and devices:? Stable cardiac pacer. ? Lungs and pleura:? Lungs are clear.? No pleural effusions or pneumothorax.? ? Mediastinum:? Mediastinal contours appear normal.? Heart size is normal.? ? Bones and chest wall:? No suspicious bony lesions.? Overlying soft tissues appear unremarkable.? ? IMPRESSION:? No acute cardiopulmonary disease process. ? ? Dictated by: Mima Reece MD, PhD on 10/15/2022 at 13:24 ? ? Approved by: Mima Reece MD, PhD on 10/15/2022 at 13:24 ? CT scan - head: Radiologist's Impression: [address] [address] [address] Scan Report Signed Patient: Randolph Cisneros MR#: [id number] : 1950 Acct:[id number] Age/Sex: 71 / M Date of Service: 10/15/22 Loc: ED Accession Number: [id number] ?? Procedure: CT head/brain wo con Ordering Provider: Nilda Garcia D.O. PROCEDURE:? CT HEAD/BRAIN WO CON ? INDICATIONS:? tingling in arm/leg,slurred speech possible ? TECHNIQUE:? Noncontrast 4.5 mm thick angled axial sections acquired from the foramen magnum to the vertex, with coronal and sagittal reformats.? For radiation dose reduction, the following was used:? automated exposure control, adjustment of mA and/or kV according to patient size.? ? COMPARISON:? [facility], CT, CT HEAD/BRAIN WO CON, 08/15/2021, 1:48. ? FINDINGS:? Image quality:? Excellent.? ? CSF spaces:? Basal cisterns are patent.? No extra-axial fluid collections.? Ventricles are normal in size and shape.? ? Brain:? No midline shift.? No intracranial masses or hemorrhage.? No area of hypodensity in a large vascular distribution to suggest acute infarction. Periventricular hypodensity consistent with chronic microvascular ischemic change.? Atherosclerotic calcification within the V4 vertebral arteries.? Terminal ICA atherosclerotic calcifications.? Age-related parenchymal loss. ? Skull and face:? Calvarium and visualized facial bones are intact, without suspicious lesions.? ? Sinuses:? Extensive mucosal thickening in the right maxillary sinus.? Minimal mucosal thickening in the ethmoid sinuses.? Mastoids are clear. ? IMPRESSION:? No acute intracranial abnormality. ? Right maxillary sinusitis. ? ? Dictated by: Hugo Noland M.D. on 10/15/2022 at 13:41 ? ? Approved by: Hugo Noland M.D. on 10/15/2022 at 13:44 ? US - DVT: Radiologist's Impression: [place] [address] Ultrasound Report Signed Patient: Randolph Cisneros MR#: [id number] : 1950 Acct:[id number] Age/Sex: 71 / M Date of Service: 10/15/22 Loc: ED Accession Number: [id number] ?? Procedure: US periph venous up extrem lt Ordering Provider: Nilda Garcia D.O. PROCEDURE:? US PERIPH VENOUS UP EXTREM LT ? INDICATIONS:? swelling/tingling left extremities. ? TECHNIQUE:? Real-time imaging, as well as color and pulse Doppler interrogation, was performed of the left upper extremity deep veins from the inferior neck to the antecubital fossa.? ? COMPARISON:? None. ? FINDINGS:? The internal jugular vein, visualized portions of the subclavian vein, axillary, and brachial veins are free of intraluminal thrombus.? Where physically possible, the veins are normally compressible.? Color and pulse Doppler demonstrate normal intraluminal flow, with expected phasicity and pulsatility.? Additional scanning of the cephalic and basilic veins of the superficial system demonstrate normal compressibility, without thrombus.? ? IMPRESSION:? No evidence of deep vein thrombosis involving the left upper extremity. ? ? Dictated by: Mima Reece MD, PhD on 10/15/2022 at 14:34 ? ? Approved by: Mima Reece MD, PhD on 10/15/2022 at 14:34 ? Vascular ultrasound: Radiologist's Impression: [address] [address] Ultrasound Report Signed Patient: Randolph Cisneros MR#: [id number] : 1950 Acct:[id number] Age/Sex: 71 / M Date of Service: 10/15/22 Loc: ED Accession Number: [id number] ?? Procedure: periph venous low extrem lt Ordering Provider: Nilda Garcia D.O. PROCEDURE:? US PERIPH VENOUS LOW EXTREM LT ? INDICATIONS:? swelling/tingling left extremities. ? TECHNIQUE:? Real-time imaging, as well as color and pulse Doppler interrogation, were performed of the left lower extremity deep veins from the inguinal ligament to the popliteal fossa.? ? COMPARISON:? None. ? FINDINGS:? The common femoral, femoral and popliteal veins are normally compressible, and free of intraluminal thrombus.? Color and pulse Doppler demonstrate normal phasic intraluminal flow.? There is normal augmentation response to distal compression maneuver. ? ? IMPRESSION:? No evidence of deep vein thrombosis involving the left lower extremity. ? ? Dictated by: Mima Reece MD, PhD on 10/15/2022 at 14:35 ? ? Approved by: Mima Reece MD, PhD on 10/15/2022 at 14:35 ? ECG Data Interpretation: Sinus rhythm with PVC. Rate 67. No ST elevation or depression MDM Narrative Medical decision making narrative: Appropriate for admission. Reviewed with patient and primary care and agrees for admit for balance workup for TIA. Patient can not have MRI due to pacemaker. No neurology consult this time as symptoms have resolved and outside window for any tPA. Stroke Core Measures Exclusion Criteria TPA in CVA: Symptom Onset >3 or 4.5 Hours Discharge Plan Departure Patient Disposition: Admitted as Observation Clinical Impression: Transient cerebral ischemia Admit Date/Time: 10/15/22 20:00 Admit Provider: Salvador Guzman
--- NOTE | 2022-10-15 19:48 | DI.CT.S_ITS ---
PROCEDURE: CT ANGIO HEAD AND NECK INDICATIONS: Left-sided weakness TECHNIQUE: After the administration of intravenous contrast, 1 mm thick sections acquired from the aortic arch through the [place]. Post-contrast 4.5 mm thick sections then re-acquired from the foramen magnum to the vertex. 3-dimensional iewrpeb-svqlelatn-zkpuvfydho (MIP) and/or volume rendering reformats were acquired of the central intracranial vasculature and neck separately. For radiation dose reduction, the following was used: automated exposure control, adjustment of mA and/or kV according to patient size. COMPARISON: [facility], CT, CT HEAD/BRAIN WO CON, 08/15/2021, 1:48. [facility], CT, CT HEAD/BRAIN WO CON, 10/15/2022, 13:23. [facility], CT, CT ANGIO HEAD AND NECK, 08/15/2021, 1:48. FINDINGS: Image quality: There is motion artifact limiting evaluation. Metallic streak artifact from patient's dental hardware is also present limiting evaluation. BRAIN: CSF spaces: Basal cisterns are patent. No extra-axial fluid collections. There is mild cerebral volume loss, with resultant ventricular and sulcal prominence. Brain: No intracranial hemorrhage, mass, or mass effect. There are subcortical, periventricular and deep white matter hypodensities consistent with moderate chronic small vessel ischemic changes. The velez-white matter junction appears preserved. No abnormal intracranial enhancement. Skull and face: Calvarium and facial bones appear intact, without suspicious lesions. Orbits appear normal. Sinuses: There is sinus mucosal thickening within the right maxillary and ethmoid sinuses with an air-fluid level in the right maxillary sinus suggestive of acute sinusitis. Mastoid air cells are clear. HEAD CT ANGIOGRAPHY: Anterior circulation: Intracranial internal carotid arteries are normal in size and appear patent bilaterally. There is mild atherosclerotic calcification along the cavernous segments of the internal carotid arteries. The paired anterior cerebral arteries appear patent bilaterally. The anterior communicating artery also appears patent. The middle cerebral arteries appear patent bilaterally. No high-grade stenosis, occlusion, or filling defects. No cerebral aneurysms identified. Posterior circulation: Visualized portions of the vertebral arteries demonstrate bilateral calcified plaque within the distal vertebral arteries with a short segment of moderate to severe stenosis on the left. There is mild narrowing within the distal right vertebral artery. These join to form a patent basilar artery. There is calcified plaque within the proximal basilar artery with associated moderate to severe narrowing. The posterior cerebral arteries are patent bilaterally. There is persistent circulation on the right, with the right posterior cerebral artery supplied by a posterior communicating artery. NECK CT ANGIOGRAPHY: Carotid system: The great vessels demonstrate a conventional anatomy as they arise from the aortic arch. The origins of the common carotid arteries appear patent. The common carotid arteries demonstrate normal caliber and courses. The bifurcation regions are both widely patent. The internal carotid arteries demonstrate normal calibers and courses. Posterior circulation: The origins of the vertebral arteries both appear patent. The more superior extracranial portions of both vertebral arteries also appear patent with narrowing of the distal vertebral arteries as described above. Soft tissues: Visualized neck soft tissues demonstrate no suspicious abnormalities. Bones: No suspicious bony lesions. Visualized cervical spine demonstrates straightening of the cervical lordosis. There is multilevel degenerative disc disease and facet joint arthropathy. IMPRESSION: 1. No high-grade stenosis or occlusion of the central intracranial arteries. 2. Short segment moderate to severe stenosis within the distal left vertebral artery. Moderate to severe focal narrowing also demonstrated within the proximal basilar artery. 3. Carotid bulbs appear widely patent. Any quantitative measurements of stenosis were performed using NASCET criteria. Dictated by: Yariel Sheppard M.D. on 10/15/2022 at 20:56 Approved by: Yariel Sheppard M.D. on 10/15/2022 at 21:02
[2022-10-15] MEDS: SODIUM CHLORIDE 0.9% 500 ML 1000 ML IV (20:19)
[2022-10-15 20:31] LABS: COVID19 -Nasal RAPID Negative (Negative)
[2022-10-15] MEDS: MAGNESIUM OXIDE 400 MG TABLET PO (22:05)
[2022-10-15] MEDS: NORTRIPTYLINE HCL 25 MG CAPSULE 50 MG PO (22:05)
[2022-10-15] MEDS: METFORMIN XR 500 MG TABLET 1000 MG PO (22:05)
--- NOTE | 2022-10-16 00:48 | PC.ADMIT ---
[email or web address] Admission Note: The patient,Randolph Cisneros,71 y/o, was given written information regarding hospital policies, unit procedures and contact persons. Patient's smoking status: Never smoker. Vital Signs - 8 hr 10/15/22 17:00 10/15/22 17:00 10/15/22 17:30 Temperature Pulse Rate 79 Respiratory Rate Blood Pressure 145/69 H 136/63 Pulse Oximetry 98 Oxygen Delivery Method Oxygen Flow Rate 10/15/22 17:30 10/15/22 18:00 10/15/22 18:00 Temperature Pulse Rate 67 70 Respiratory Rate 20 20 Blood Pressure 125/59 L Pulse Oximetry 95 95 Oxygen Delivery Method Oxygen Flow Rate 10/15/22 18:30 10/15/22 18:30 10/15/22 19:00 Temperature Pulse Rate 76 Respiratory Rate 23 Blood Pressure 141/67 H 148/71 H Pulse Oximetry 97 Oxygen Delivery Method Oxygen Flow Rate 10/15/22 19:00 10/15/22 19:35 10/15/22 20:21 Temperature Pulse Rate 79 74 Respiratory Rate Blood Pressure Pulse Oximetry 97 97 Oxygen Delivery Method Oxygen Flow Rate 10/15/22 20:30 10/15/22 21:33 10/16/22 00:00 Temperature 98.1 F Pulse Rate 76 78 Respiratory Rate 21 19 Blood Pressure 148/70 H Pulse Oximetry 96 94 Oxygen Delivery Method Room Air Oxygen Flow Rate 0 Patient admitted to room 210 from ER per stretcher but ambulated in room to bathroom and then to bed. Is alert and oriented. Breath sounds CTA with RA sat of 94%. HRR; placed on telemetry. Denied nausea. BT present and abdomen is soft; reports having had diarrhea earlier prior to admit. Voided clear yellow urine and denies dysuria, frequency or urgency and is continent. Is able to ambulate with cane but states he has some difficulty related to a diagnosed spinal cyst that is putting pressure in the lumbar area of his spine which causes pain to radiate into left hip/leg. Is able to reposition himself in bed. Instructed to call for SBA when getting out of bed as fall risk score came out as high. CBG was 105; patient was provided sandwich and applesauce as had not eaten since prior to arrival in ER. NIH was 0 and on repeat was again at 0. Does have chronic numbness in bilateral feet. Oriented to orders, activity, call light and bed controls.
[2022-10-16 03:38] VITALS: BP 133/70; PULSE 75; RESP 18; TEMP 36.6; O2SAT 94
[2022-10-16] MEDS: OXYCODONE IR 5 MG TABLET PO ×2 (04:26→10:04)
[2022-10-16 07:00] VITALS: BP 121/81; PULSE 89; RESP 18; TEMP 36.7
--- NOTE | 2022-10-16 07:00 | DI.ECHO.S_ITS ---
[facility]---------+ [facility] +---------+ : : [address] : : : : [id number] : : : : Phone: [phone]+ Echocardiogram Report + + :Name: CHRISTOPHE COBOS Study Date: 10/16/2022 Height: 67 in : :[facility] ReadingLocation: Weight: 190 lb : : Gender: Male BSA: 2.0 m2 : :: 1950 Age: 71 yrs BP: 148/70 mmHg: :Reason For Study: TIA : :Ordering Physician: CASSANDRA, : :DANIELLE Uribe Performed By: Crista Warner : :Referring: DANIELLE TRUJILLO : + + Interpretation Summary 1) Mildly enlarged left ventricular size with mildly to moderately reduced systolic function (EF 40-45%). 2) Mildly enlarged right ventricular size with normal function.There is a pacemaker lead in the right ventricle. 3) No significant valvular abnormalities. 4) The ascending aorta is mildly enlarged at 4.3cm. 5) Compared to the Echo done 07/30/2021, LVEF has improved slightly from 35-40% to 40-45% on this study. Procedure: A two-dimensional transthoracic echocardiogram with color flow and Doppler was performed. The study quality was technically adequate. Comparison is made with the echocardiogram of 07/30/2021. The patient was in sinus rhythm with heart rates between 65-90 bpm during the exam. Left Ventricle: The left ventricle is mildly dilated. There is normal left ventricular wall thickness. The ejection fraction is estimated to be 40-45%. There is mild to moderate global hypokinesis of the left ventricle. Right Ventricle: There is a pacemaker lead in the right ventricle. The right ventricle is mildly dilated. The right ventricular systolic function is normal. Atria: The left atrium is severely dilated. There is a catheter/pacemaker lead seen in the right atrium. The right atrium is moderately dilated. There is no Doppler evidence for an interatrial shunt. The atrial septum is aneurysmal. Mitral Valve: The mitral valve is normal in structure and function. There is mild mitral regurgitation. Aortic Valve: The aortic valve is trileaflet. The aortic valve opens well. There is no aortic valve stenosis. There is mild aortic regurgitation. Tricuspid Valve: The tricuspid valve is normal in structure and function. There is mild tricuspid regurgitation. Pulmonic Valve: The pulmonic valve leaflets are thin and pliable; valve motion is normal. There is trace pulmonic regurgitation. Great Vessels: The aortic root is mildly dilated. The ascending aorta is mildly enlarged. The IVC is of normal diameter and collapses greater than 50% with a sniff. This suggests a low right atrial pressure of 3 mm Hg. Pericardium/ Pleura There is no pericardial effusion. There is no pleural effusion. MMode/2D Measurements & Calculations LVIDd: 5.9 cm LVOT diam: 2.3 cm LVIDs: 4.4 cm Ao root diam: 4.1 cm FS: 25.1 % asc Aorta Diam: 4.3 cm EPSS: 1.3 cm Ao Arch Diam (Prox Trans): 2.6 cm IVSd: 0.94 cm LVPWd: 1.1 cm LV thompson. diameter/BSA (cm/m^2): 3.0 LV sys. diameter/BSA (cm/m^2): 2.2 LA A2 area: 29.9 cm2 RA long axis: 6.0 cm LA A4 area: 23.0 cm2 RA area: 24.3 cm2 LA length (vol): 5.6 cm RA vol: 83.1 ml LA vol: 104.8 ml RA : 42.0 ml/m2 LA vol index: 53.0 ml/m2 IVC diam: 1.4 cm RVD1 (basal): 4.2 cm RVD2 (mid): 3.3 cm TAPSE: 2.3 cm Doppler Measurements & Calculations Ao V2 max: 141.0 cm/sec LVOT Max Ozzie: 80.3 cm/sec Ao V2 mean: 91.0 cm/sec LV V1 max P.6 mmHg Ao max P.0 mmHg LV V1 VTI: 17.4 cm Ao mean P.8 mmHg ADAM(I,D): 2.6 cm2 Ao V2 VTI: 27.7 cm ADAM(V,D): 2.4 cm2 sev ratio: 0.63 ADAM indexed to BSA (cm^2/m^2): 1.3 MV E max ozzie: 66.3 cm/sec TR max ozzie: 250.1 cm/sec MV A max ozzie: 78.2 cm/sec TR max P.0 mmHg MV E/A: 0.85 PA V2 max: 89.1 cm/sec Med Peak E' Ozzie: 7.3 cm/sec PA V2 mean: 63.2 cm/sec E/E' med: 9.1 PA mean P.8 mmHg Lat Peak E' Ozzie: 7.6 cm/sec PA pr(Accel): 49.9 mmHg E/E' lat: 8.7 E/e' average: 8.9 MV dec time: 0.29 sec SV(LVOT): 72.8 ml Reading Physician:08:54 AM
--- NOTE | 2022-10-16 07:00 | DI.US.S_ITS ---
PROCEDURE: US CAROTID DOPPLER BI INDICATIONS: TRANSIENT ISCHEMIC ATTACK TECHNIQUE: Color and pulse Doppler interrogation was performed of both carotid systems, with image documentation and velocity measurements. COMPARISON: [facility], CT, CT ANGIO HEAD AND NECK, 10/15/2022, 20:09. FINDINGS: Stenosis calculations are based on SRU (Society of Radiologists in Ultrasound) criteria. Right side: Brachial blood pressure: 140/72 mm Hg. Common carotid artery peak systolic velocity: 94 cm/sec. Internal carotid artery peak systolic velocity: 76 cm/sec. Internal carotid artery end diastolic velocity: 18 cm/sec. External carotid artery peak systolic velocity: 116 cm/sec. ICA/CCA peak systolic ratio: 0.8. [place]cano scale imaging description: Minimal plaquing Percent internal carotid artery stenosis: Less than 50%. Vertebral artery: Flow direction is antegrade. Left side: Brachial blood pressure: 139/70 mm Hg. Common carotid artery peak systolic velocity: 96 cm/sec. Internal carotid artery peak systolic velocity: 72 cm/sec. Internal carotid artery end diastolic velocity: 17 cm/sec. External carotid artery peak systolic velocity: 95 cm/sec. ICA/CCA peak systolic ratio: 0.8. [place]azcano scale imaging description: Minimal plaquing Percent internal carotid artery stenosis: Less than 50%. Vertebral artery: Flow direction is antegrade. IMPRESSION: 1. Less than 50% internal carotid artery stenosis bilaterally. 2. Antegrade vertebral artery flow. Dictated by: Nicole Parada M.D. on 10/16/2022 at 9:06 Approved by: Nicole Parada M.D. on 10/16/2022 at 9:09
--- NOTE | 2022-10-16 07:15 | P.HP_ITS ---
History of Present Illness History of Present Illness Date Patient Seen: 10/16/22 Time Patient Seen: 07:15 Chief complaint: thinks he is having a stroke Narrative: 71-year-old male diabetic well known to me admitted via emergency department after a TIA Apparently began having symptoms characterized primarily of swelling of his left hand I swelling of his left foot and then some tingling ensued. He thought maybe he was having a reaction to some shrimp that he had just been eating although he would had the same shrimp the night before without any symptoms and has never had a reaction to shrimp or shellfish of any sort. I contacted his neighbor who came over and together they elected to come the emergency department. Apparently neighbor noticed that his speech seemed to be somewhat slurred and altered although patient himself is not aware of that. They came to the ER which was overwhelmed with patient's and there was quite a delay before he could be seen. During that time he developed some numbness in his right foot and then sort of on all of a sudden basis everything seem to get better and resolved and he as not had any additional symptoms since that time ER evaluation was pretty much unremarkable. He was evaluated for possible venous thrombosis in his upper and lower extremity on the left side which was not present based on ultrasound. He was evaluated for new stroke but essentially unremarkable workup He was admitted for continued evaluation and management. Did sustain a stroke with primarily left leg symptoms in August 2021. At that time he also had some significant hypertension. This time he did not have any hypertension and symptoms completely resolved Patient History Medical History Acute GI bleeding Automatic implantable cardiac defibrillator in situ (~07/2019) Cerebrovascular accident Degeneration of intervertebral disc of cervical region Diabetic peripheral neuropathy (07/25/15) Essential hypertension terminal gauger current use of insulin (08/20/16) Mixed hyperlipidemia Nonischemic cardiomyopathy (09/09/16) Type 2 diabetes mellitus with hyperglycemia, with long-term current use of i nsulin Type 2 diabetes mellitus without complication Family & Social History Social History: household members none Prior Living Arrangements House lives independently Yes caregiver/support person Yes Safety & Behavioral: Feels Safe in Current Yes Environment Been Physically Hurt or No Threatened By a Person Tobacco & Substance use: Smoking Status Never smoker alcohol intake current alcohol intake frequency a few times a week Substance Use Type does not use Meds Home Medications and Allergies Home Medications Medication Instructions Recorded Confirmed Type nortriptyline 50 mg capsule See Rx Instructions PO HS #180 caps 04/30/21 10/15/22 Rx aspirin 325 mg tablet,delayed 325 mg PO DAILY #250 tabs 07/06/21 10/15/22 Rx release Glucose: Test Strips #500 ea 08/27/21 10/16/22 Rx blood-glucose meter (Blood Glucose #1 ea 08/27/21 10/16/22 Rx Monitoring kit) insulin NPH-regular 70-30 U-100 70 unit (0.7 mL) SUBCUT BID #200 mL 09/24/21 10/15/22 Rx insulin 100 unit/mL subcutaneous pen (Humulin 70/30 U-100 KwikPen) ivabradine 5 mg tablet 5 mg PO BID #180 tabs 11/05/21 10/15/22 Rx metformin 500 mg tablet,extended 1,000 mg PO BID #360 tabs 12/03/21 10/15/22 Rx release 24 hr clopidogrel 75 mg tablet 75 mg PO DAILY #90 tabs 01/02/22 10/15/22 Rx sacubitril 24 mg-valsartan 26 mg 1 tab PO BID 03/19/22 10/15/22 History tablet (Entresto) acetaminophen 325 mg tablet 650 mg PO Q6HR PRN Fever/Mild Pain 05/18/22 10/15/22 Rx (1-3) #60 tabs amlodipine 5 mg tablet 5 mg PO DAILY #90 tabs 05/31/22 10/15/22 Rx atorvastatin 20 mg tablet 20 mg PO DAILY #90 tabs 05/31/22 10/15/22 Rx flash glucose scanning reader #1 ea 06/20/22 10/16/22 Rx (FreeStyle Tara 14 Day [place]) flash glucose sensor (FreeStyle #1 ea 06/20/22 10/16/22 Rx Tara 14 Day Sensor kit) blood-glucose meter,continuous #1 ea 06/26/22 10/16/22 Rx (Dexcom G6 [employer] misc) blood-glucose sensor (Dexcom G6 #3 ea 06/26/22 10/16/22 Rx Sensor device) blood-glucose transmitter (Dexcom #1 ea 06/26/22 10/16/22 Rx G6 Transmitter device) gabapentin 300 mg capsule 600 mg PO QPM #180 caps 09/17/22 10/15/22 Rx oxycodone 5 mg tablet 5 mg PO Q6H PRN pain #60 tabs 09/17/22 10/15/22 Rx pantoprazole 40 mg tablet,delayed 40 mg PO DAILY 09/17/22 10/15/22 History release trazodone 50 mg tablet 50 mg PO BEDTIME 09/17/22 10/15/22 History tamsulosin 0.4 mg capsule 0.4 mg PO DAILY #90 caps 10/14/22 10/15/22 Rx carvedilol 25 mg tablet 25 mg PO BID #180 tabs 10/16/22 Rx magnesium oxide 400 mg (241.3 mg 400 mg PO BID #180 tabs 10/16/22 Rx magnesium) tablet Allergies Allergy/AdvReac Type Severity Reaction Status Date / Time No Known Drug Allergies Allergy Verified 10/15/22 12:45 Review of Systems Review of Systems ROS: Yes All systems reviewed with the patient and are negative except as otherwise documented Exam Vital Signs (past 8 hours): - 10/16/22 00:00 10/16/22 03:38 Temperature 97.9 F Pulse Rate 75 Respiratory Rate 18 Blood Pressure 133/70 Pulse Oximetry 94 Oxygen Delivery Method Room Air Oxygen Flow Rate 0 Oxygen Delivery Method Room Air Oxygen Flow Rate 0 Narrative Exam Narrative: Older than stated age appearing male in no obvious distress lying in his hospital bed HEENT-unremarkable, normocephalic atraumatic Neck-no lymphadenopathy no bruits Lungs-clear anteriorly and posteriorly no wheezes no crackles good breath sounds Heart-regular rate and rhythm, no murmur, rub, or gallop. normal S1-S2 Abdomen-positive bowel tones, soft, nontender, nondistended, no hepatosplenomegaly, no masses palpable Neuro-normal to screening exam, gait not tested Extremities-no cyanosis clubbing or edema Objective Labs Result Diagrams: 10/15/22 13:00 10/15/22 13:00 Labs: Laboratory Results - last 24 hr 10/15/22 10/15/22 10/15/22 13:00 13:00 13:00 WBC 4.8 RBC 3.85 L Hgb 10.1 L Hct 30.7 L MCV 79.8 L MCH 26.3 MCHC 33.0 RDW 16.1 H Plt Count 162 Neut % (Auto) 68.2 Lymph % (Auto) 18.4 L [place] % (Auto) 8.6 Eos % (Auto) 4.5 H Baso % (Auto) 0.3 Neut # (Auto) 3300 Lymph # (Auto) 900 L [place] # (Auto) 400 Eos # (Auto) 200 Baso # (Auto) 0 PT 12.6 INR 1.1 APTT 29 Sodium 138 Potassium 3.8 Chloride 108 H Carbon Dioxide 18 L BUN 12 Creatinine 0.72 Estimated GFR > 60 BUN/Creatinine Ratio 16.7 Glucose 108 Calcium 7.7 L Magnesium 0.8 L* Total Bilirubin 0.4 AST 25 ALT 19 Alkaline Phosphatase 65 Total Creatine Kinase 201 H CK-MB (CK-2) < 0.22 CK-MB (CK-2) Rel Index 0.1 L Troponin I < 0.012 Total Protein 7.2 Albumin 4.1 Globulin 3.1 Albumin/Globulin Ratio 1.3 Lipase 159 SARS-CoV-2 (PCR) 10/15/22 19:49 WBC RBC Hgb Hct MCV MCH MCHC RDW Plt Count Neut % (Auto) Lymph % (Auto) [place] % (Auto) Eos % (Auto) Baso % (Auto) Neut # (Auto) Lymph # (Auto) [place] # (Auto) Eos # (Auto) Baso # (Auto) PT INR APTT Sodium Potassium Chloride Carbon Dioxide BUN Creatinine Estimated GFR BUN/Creatinine Ratio Glucose Calcium Magnesium Total Bilirubin AST ALT Alkaline Phosphatase Total Creatine Kinase CK-MB (CK-2) CK-MB (CK-2) Rel Index Troponin I Total Protein Albumin Globulin Albumin/Globulin Ratio Lipase SARS-CoV-2 (PCR) Negative Assessment & Plan Assessment & Plan narrative: 1. TIA-patient with presenting symptoms consistent with a TIA. Unable to obtain MRI because of his implanted cardiac device. ER evaluation including CT angiography of the head and neck is essentially unchanged from previous evaluation done in August 2021. Does show some vertebral artery stenosis but his presenting symptoms really are not in that distribution in my opinion. Most likely culprit in this setting is small-vessel disease secondary to a combination of his diabetes and hypertension. Blood pressure has been very well controlled and is okay here today diabetes has been less so over time. He is no lingering deficits that I can identify that are new. He is already on dual anti-platelet therapy and at this point there is no indication for more aggressive anticoagulation in my opinion given lack of findings clear source of thrombotic emboli. He would benefit from repeat echo cardiography does have a known nonischemic cardiomyopathy and last echo was over year ago, just prior to his stroke in August 2021. Repeat carotid ultrasound again looking for source of clot would make sense as well so will have both of those studies obtained during this admission/hospitalization. Continue to monitor for rhythm disturbance as another potential source clot 2. Diabetes-continue patient's usual regimen. Anticipate blood sugar control be far better here in the hospital than at home as likely his diet will be far better controlled here in the hospital than at home 3. Cardiomyopathy-continue patient's chronic medications. He has been relatively asymptomatic from a cardiac standpoint over longer period of time 4. 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 Hypertension-patient's blood pressure is well controlled at this point. Continue patient's chronic medications 6. Hyperlipidemia-patient is chronically on statin therapy continue that in effort to overall reduce his vascular risk etcetera COVID-19 COVID-19 status: Negative Result date/Date tested (Pos, Neg/Pending): 10/15/22 Scores NIHSS Level of Conciousness: Alert, keenly responsive Ask month/age: Answers both questions correctly. Open/close eyes, close hand: Performs both tasks correctly Best gaze horizontal: Normal Visual schneider: No visual loss Facial palsy: Normal symetrical movement Left arm drift: No drift for full 10 sec Right arm drift: No drift for full 10 sec Left leg drift: No drift for full 5 sec Right leg drift: No drift for full 5 sec Limb ataxia: Absent Sensory on face/arms/legs: Normal, no sensory loss Best language: No aphasia, normal Dysarthria: Normal Extinction or inattention: No abnormality Total NIH Stroke scale score: 0
[2022-10-16 08:00] VITALS: O2SAT 95
[2022-10-16 09:10] VITALS: BP 141/78; PULSE 91; RESP 18; TEMP 35.9; O2SAT 95
[2022-10-16] MEDS: METFORMIN XR 500 MG TABLET 1000 MG PO (09:59)
[2022-10-16] MEDS: SPIRONOLACTONE 25 MG TABLET PO (09:59)
[2022-10-16] MEDS: PANTOPRAZOLE DR 40 MG TABLET PO (09:59)
[2022-10-16 10:00] VITALS: BP 141/78; PULSE 91
[2022-10-16] MEDS: CLOPIDOGREL 75 MG TABLET PO (10:00)
[2022-10-16] MEDS: ATORVASTATIN 20 MG TABLET PO (10:00)
[2022-10-16] MEDS: carvediloL 12.5 MG TABLET 25 MG PO (10:00)
[2022-10-16] MEDS: ASPIRIN EC 325 MG TABLET PO (10:00)
[2022-10-16] MEDS: TRAZODONE 50 MG TABLET PO (10:00)
[2022-10-16] MEDS: TAMSULOSIN 0.4 MG CAPSULE PO (10:00)
[2022-10-16] MEDS: ENOXAPARIN 40 MG/0.4 ML SYRINGE SUBCUT (10:00)
[2022-10-16] MEDS: MAGNESIUM OXIDE 400 MG TABLET PO (10:00)
[2022-10-16] MEDS: INFLUENZA HD VACCINE 0.7 ML SYRINGE IM (10:01)
[2022-10-16] MEDS: AMLODIPINE 5 MG TABLET PO (10:01)
== END 2022-10-16 10:44 | disposition home or self-care (01) ==
LOC: ED 20:00 → AC 20:00
PROVIDERS: Emergency Medicine; Admitting Provider Internal Medicine; Emergency Provider Emergency Medicine; PCP Internal Medicine; Visit Provider Internal Medicine
DX: R20.0 Anesthesia of skin (principal); R53.1 Weakness; M79.89 Other specified soft tissue disorders; R29.700 NIHSS score 0; E11.9 Type 2 diabetes mellitus without complications; I42.8 Other cardiomyopathies; M47.892 Other spondylosis, cervical region; I10 Essential (primary) hypertension; E78.5 Hyperlipidemia, unspecified; Z95.0 Presence of cardiac pacemaker; Z86.73 Personal history of transient ischemic attack (TIA), and cerebral infarction without residual deficits; Z79.4 Long term (current) use of insulin; Z79.84 Long term (current) use of oral hypoglycemic drugs; Z20.822 Contact with and (suspected) exposure to COVID-19; Z23 Encounter for immunization
CPT/HCPCS: 36415; 70450; 70496; 70498; 71045; 80053; 82550; 82553; 82962; 83690; 83735; 84484; 85025; 85610; 85730; 87635; 90471; 90662; 93005; 93010; 93306; 93880; 93971; 96365; 96366; 96372; 99284; C9803; G0378; J1650; J3475; Q9967

== ENCOUNTER → 2022-12-17 09:24 | Outpatient (CLI) | payer MEDICARE, SELFPAY ==
[2022-10-15 21:21] VITALS: BMI 29.8
[2022-12-17 10:21] LABS: Hemoglobin A1C% w Est Avg Glu 6.6 % (4.0-6.0)
[2022-12-17 10:30] LABS: BUN Creatinine Ratio 19.4 (6-22); Blood Urea Nitrogen 14 mg/dL (9-20); Calcium 8.9 mg/dL (8.4-10.2); Carbon Dioxide 23 mmol/L (22-32); Chloride 102 mmol/L (98-107); Estimated Glomerular Filt Rate > 60 mL/min (>60); Glucose 165 mg/dL (80-110); HEMOLYSIS < 15 (0-50); Potassium 3.6 mmol/L (3.4-5.1); Sodium 137 mmol/L (137-145)
== END ==
PROVIDERS: PCP Internal Medicine; Referring Provider Internal Medicine Cardiovascular Disease; Visit Provider Internal Medicine Cardiovascular Disease
DX: E11.9 Type 2 diabetes mellitus without complications (principal); I50.22 Chronic systolic (congestive) heart failure; I10 Essential (primary) hypertension; Z79.4 Long term (current) use of insulin
CPT/HCPCS: 36415; 80048; 83036

== ENCOUNTER → 2022-12-20 16:29 | Outpatient (CLI) | payer MEDICARE, SELFPAY ==
[2022-10-15 21:21] VITALS: BMI 29.8
[2022-12-20 17:08] LABS: Add Manual Diff / Slide Review NO; Basophils Absolute Auto 0 /uL (0-100); Basophils Percent Auto 0.2 % (0-2); Eosinophils Absolute Auto 200 /uL (0-450); Eosinophils Percent Auto 3.8 % (2-4); Hematocrit 33.4 % (41-53); Hemoglobin 11.3 g/dL (13.5-17.5); Lymphocytes Absolute Auto 1300 /uL (1100-4500); Lymphocytes Percent Auto 22.7 % (25-40); Mean Corpuscular HGB Conc 33.9 % (30-36); Mean Corpuscular Hemoglobin 27.9 PG (26-34); Mean Corpuscular Volume 82.4 fL (80-100); Monocytes Absolute Auto 500 /uL (0-900); Monocytes Percent Auto 9.7 % (3-14); Neutrophils Absolute Auto 3600 /uL (1500-7000); Neutrophils Percent Auto 63.6 % (50-75); Platelet Count 166 X10^3/uL (150-400); Red Blood Cell Count 4.05 X10^6/uL (4.5-5.9); Red Cell Distribution Width 16.7 % (11.6-14.8); White Blood Cell Count 5.7 X10^3/uL (4.5-11.0)
[2022-12-20 17:14] LABS: Alanine Aminotransferase 26 IU/L (<50); Albumin 4.5 g/dL (3.5-5.0); Albumin Globulin Ratio 1.3 (1.0-2.8); Alkaline Phosphatase 97 U/L (38-126); Aspartate Aminotransferase 27 IU/L (17-59); Bilirubin Total 0.7 mg/dL (0.2-1.3); Bilirubin Unconjugated 0.3 mg/dL (0.0-1.1); Globulin 3.4 g/dL (1.7-4.1); HEMOLYSIS < 15 (0-50); Iron 40 ug/dL (49-181); Total Protein 7.9 g/dL (6.3-8.2)
[2022-12-20 17:24] LABS: Percent Iron Saturation 7 % (20-50); Total Iron Binding Capacity 584 ug/dL (261-462); Transferrin 402 mg/dL (206-381)
[2022-12-20 17:57] LABS: Erythrocyte Sedimentation Rate 17 MM/HR (0-15)
== END ==
PROVIDERS: PCP Internal Medicine; Referring Provider Internal Medicine; Visit Provider Internal Medicine
DX: E78.2 Mixed hyperlipidemia (principal); D64.9 Anemia, unspecified; I10 Essential (primary) hypertension; R63.4 Abnormal weight loss
CPT/HCPCS: 36415; 80076; 83540; 83550; 85025; 85651

== ENCOUNTER → 2023-01-07 11:05 | Outpatient (CLI) | payer MEDICARE, SELFPAY ==
[2022-10-15 21:21] VITALS: BMI 29.8
[2023-01-07 11:55] LABS: BUN Creatinine Ratio 16.4 (6-22); Blood Urea Nitrogen 11 mg/dL (9-20); Calcium 8.9 mg/dL (8.4-10.2); Carbon Dioxide 22 mmol/L (22-32); Chloride 103 mmol/L (98-107); Estimated Glomerular Filt Rate > 60 mL/min (>60); Glucose 116 mg/dL (80-110); HEMOLYSIS < 15 (0-50); Sodium 137 mmol/L (137-145)
== END ==
PROVIDERS: PCP Internal Medicine; Referring Provider Internal Medicine Cardiovascular Disease; Visit Provider Internal Medicine Cardiovascular Disease
DX: I50.22 Chronic systolic (congestive) heart failure (principal)
CPT/HCPCS: 36415; 80048

== ENCOUNTER 2023-01-26 12:11 | Emergency (ER) | payer MEDICARE, SELFPAY ==
[2022-10-15 21:21] VITALS: BMI 29.8
[2023-01-26] VITALS (7 sets, daily range): BP systolic 128–148; BP diastolic 74–76; PULSE 61–72; RESP 16; TEMP 35.9; O2SAT 96–98
[2023-01-26 12:37] LABS: Add Manual Diff / Slide Review NO; Basophils Absolute Auto 0 /uL (0-100); Basophils Percent Auto 0.3 % (0-2); Eosinophils Absolute Auto 100 /uL (0-450); Eosinophils Percent Auto 0.8 % (2-4); Hematocrit 39.4 % (41-53); Hemoglobin 13.3 g/dL (13.5-17.5); Lymphocytes Absolute Auto 1300 /uL (1100-4500); Lymphocytes Percent Auto 20.5 % (25-40); Mean Corpuscular HGB Conc 33.6 % (30-36); Mean Corpuscular Hemoglobin 29.5 PG (26-34); Mean Corpuscular Volume 87.8 fL (80-100); Monocytes Absolute Auto 600 /uL (0-900); Monocytes Percent Auto 9.5 % (3-14); Neutrophils Absolute Auto 4300 /uL (1500-7000); Neutrophils Percent Auto 68.9 % (50-75); Platelet Count 150 X10^3/uL (150-400); Red Blood Cell Count 4.49 X10^6/uL (4.5-5.9); Red Cell Distribution Width 18.7 % (11.6-14.8); White Blood Cell Count 6.3 X10^3/uL (4.5-11.0)
--- NOTE | 2023-01-26 12:37 | ED_ITS ---
HPI - Altered Mental Status General Chief Complaint: Diabetic Problem Stated Complaint: Diabetic, having issues Time Seen by Provider: 01/26/23 12:18 Mode of arrival: Wheelchair History of Present Illness HPI narrative: Patient 72-year-old male history of diabetes, hypertension hyperlipidemia, nonischemic cardiomyopathy presenting today with decrease in appetite weakness and he fell 2 days ago. He reports that he fell 2 days ago going down multiple stairs he is not sure how he fell. Was able to get himself up. He has some knee pain bilaterally but is able to ambulate any difficulty. He is not on any anticoagulation medication he is not had any nausea or vomiting. He thinks that his glucose is low but accu check in ED is 309. He denies any fever or chills. He is no chest pain palpitations shortness of breath. He has had generally decrease in appetite which according to records and his PCP no 12/20/2022 he had had significant decrease in appetite than. He is here with his neighbor who says he is mostly a pretty sharp this week he is noted he is a little bit more confused. His family lives in [place], no one is close by. Related Data Home Medications Medication Instructions Recorded Confirmed sacubitril 24 mg-valsartan 26 mg 1 tab PO BID 03/19/22 12/20/22 tablet (Entresto) pantoprazole 40 mg tablet,delayed 40 mg PO DAILY 09/17/22 12/20/22 release trazodone 50 mg tablet 50 mg PO BEDTIME 09/17/22 12/20/22 Previous Rx's Medication Instructions Recorded nortriptyline 50 mg capsule See Rx Instructions PO HS #180 caps 04/30/21 aspirin 325 mg tablet,delayed 325 mg PO DAILY #250 tabs 07/06/21 release Glucose: Test Strips #500 ea 08/27/21 blood-glucose meter (Blood Glucose #1 ea 08/27/21 Monitoring kit) clopidogrel 75 mg tablet 75 mg PO DAILY #90 tabs 01/02/22 acetaminophen 325 mg tablet 650 mg PO Q6HR PRN Fever/Mild Pain 05/18/22 (1-3) #60 tabs flash glucose scanning reader #1 ea 06/20/22 (FreeStyle Tara 14 Day [place]) flash glucose sensor (FreeStyle #1 ea 06/20/22 Tara 14 Day Sensor kit) blood-glucose meter,continuous #1 ea 06/26/22 (Dexcom G6 Numerical Control Machine Tool Operator) blood-glucose sensor (Dexcom G6 #3 ea 06/26/22 Sensor device) blood-glucose transmitter (Dexcom #1 ea 06/26/22 G6 Transmitter device) gabapentin 300 mg capsule 600 mg PO QPM #180 caps 09/17/22 tamsulosin 0.4 mg capsule 0.4 mg PO DAILY #90 caps 10/14/22 carvedilol 25 mg tablet 25 mg PO BID #180 tabs 10/16/22 magnesium oxide 400 mg (241.3 mg 400 mg PO BID #180 tabs 10/16/22 magnesium) tablet insulin NPH-regular 70-30 U-100 70 unit (0.7 mL) SUBCUT BID #200 mL 11/11/22 insulin 100 unit/mL subcutaneous pen (Humulin 70/30 U-100 KwikPen) amlodipine 5 mg tablet 5 mg PO DAILY #90 tabs 12/19/22 ivabradine 5 mg tablet 5 mg PO BID #180 tabs 12/20/22 oxycodone 5 mg tablet 5 mg PO Q6H PRN pain #60 tabs 12/27/22 atorvastatin 20 mg tablet 20 mg PO DAILY #90 tabs 01/03/23 metformin 500 mg tablet,extended 1,000 mg PO BID #360 tabs 01/06/23 release 24 hr Allergies Allergy/AdvReac Type Severity Reaction Status Date / Time No Known Drug Allergies Allergy Verified 01/26/23 12:25 Review of Systems Review of Systems ROS Unobtainable: All systems reviewed & are unremarkable except as noted in HPI and below Patient History Medical History Acute GI bleeding Automatic implantable cardiac defibrillator in situ (~07/2019) Cerebrovascular accident Degeneration of intervertebral disc of cervical region Diabetic peripheral neuropathy (07/25/15) 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/muslim: Sabianism travel history: recent leisure activities: music, reading and other (Hiking.) Smoking Status: Never smoker quit status: quit date established second hand exposure: No alcohol intake: current substance use type: does not use Smoking Status: Never smoker alcohol intake frequency: a few times a week Alcohol type: hard liquor Substance Use Type: does not use Exam Initial Vital Signs Initial Vital Signs: Vital Signs Temperature 96.6 F L 01/26/23 12:23 Pulse Rate 72 01/26/23 12:23 Respiratory Rate 16 01/26/23 12:23 Blood Pressure 148/76 H 01/26/23 12:23 Pulse Oximetry 97 01/26/23 12:23 Oxygen Delivery Method Room Air 01/26/23 12:23 GENERAL: Alert pleasant 72-year-old male mildly disheveled HEENT: Head atraumatic,EOMI, pupils reactive, face symmetric, moist mucous membranes CARDIOVASCULAR: Regular rate and rhythm without murmurs, rubs or gallops. RESPIRATORY: Breath sounds equal bilaterally, no wheezes rales or rhonchi. ABDOMEN: Soft, nontender. Normoactive bowel sounds all 4 quadrants. No guarding or rebound. EXTREMITIES: Normal range of motion, no clubbing or edema. Neurovascularly intact NEUROLOGICAL: Alert and oriented x4.Normal gait and speech. Cranial nerves II through XII grossly intact. Good [id number], good [id number], strength equal bilaterally, no dysarthria or aphasia, sensation in tact to soft touch bilaterally, no visual changes, no facial droop SKIN: Warm, dry, no laceration, no petechiae, no rashes or lesions. Scores NIH Stroke Scale Level of Conciousness: Alert, keenly responsive Ask month/age: Answers both questions correctly. Open/close eyes, close hand: Performs both tasks correctly Best gaze horizontal: Normal Visual schneider: No visual loss Facial palsy: Normal symetrical movement Left arm drift: No drift for full 10 sec Right arm drift: No drift for full 10 sec Left leg drift: No drift for full 5 sec Right leg drift: No drift for full 5 sec Limb ataxia: Absent Sensory on face/arms/legs: Normal, no sensory loss Best language: No aphasia, normal Dysarthria: Normal Extinction or inattention: No abnormality Total NIH Stroke scale score: 0 Course Orders Ordered: ED Orders 01/26/23 12:20 Acetaminophen Stat CBC Auto Diff [Complete Blood Count AUTO DIFF] Stat CMP [Comprehensive Metabolic Panel] Stat ETOH [Ethanol (ETOH)] Stat Ketones (Beta-Hydroxybutyrate) Stat Lactate (Lactic Acid) Stat Procalcitonin Stat Salicylate Stat Troponin & CK Cardiac Panel Stat UA Complete [Urinalysis and Microscopic] Stat Urine Drug Screen, Rapid Stat 01/26/23 12:22 EKG-12 Lead Stat 01/26/23 12:30 pH VBG Stat 01/26/23 12:45 CT cervical spine wo con Stat CT head/brain wo con Stat 01/26/23 13:09 Chest [XR chest 1V] Stat 01/26/23 13:15 Blood Culture Stat Discontinued Medications Sodium Chloride (Normal Saline 0.9%) 1,000 mls @ 1,000 mls/hr IV BOLUS ONE Stop: 01/26/23 14:29 Last Infusion: 01/26/23 14:37 Dose: 0 mls/hr Documented By: Admin: 01/26/23 13:39 Dose: 1,000 mls/hr Documented By: DANE Vital Signs Vital signs: Vital Signs - 8 hr 01/26/23 12:23 01/26/23 12:27 01/26/23 12:32 Temperature 96.6 F L Pulse Rate 72 71 70 Respiratory Rate 16 Blood Pressure 148/76 H Pulse Oximetry 97 97 98 Oxygen Delivery Method Room Air 01/26/23 13:03 01/26/23 13:30 01/26/23 14:00 Temperature Pulse Rate 61 62 70 Respiratory Rate Blood Pressure Pulse Oximetry 98 96 97 Oxygen Delivery Method 01/26/23 14:30 Temperature Pulse Rate 63 Respiratory Rate Blood Pressure 128/74 Pulse Oximetry 98 Oxygen Delivery Method MDM - Altered Mental Status Lab Data 01/26/23 12:20 01/26/23 12:20 Labs: Lab Results 01/26/23 01/26/23 01/26/23 Range/Units 12:20 12:20 12:20 WBC 6.3 (4.5-11.0) X10^3/uL RBC 4.49 L (4.5-5.9) X10^6/uL Hgb 13.3 L (13.5-17.5) g/dL Hct 39.4 L (41-53) % MCV 87.8 (80-100) fL MCH 29.5 (26-34) PG MCHC 33.6 (30-36) % RDW 18.7 H (11.6-14.8) % Plt Count 150 (150-400) X10^3/uL Neut % (Auto) 68.9 (50-75) % Lymph % (Auto) 20.5 L (25-40) % [place] % (Auto) 9.5 (3-14) % Eos % (Auto) 0.8 L (2-4) % Baso % (Auto) 0.3 (0-2) % Neut # (Auto) 4300 (2261-7953) /uL Lymph # (Auto) 1300 (5093-9895) /uL [place] # (Auto) 600 (0-900) /uL Eos # (Auto) 100 (0-450) /uL Baso # (Auto) 0 (0-100) /uL VBG pH (7.33-7.43) Sodium 133 L (137-145) mmol/L Potassium 4.0 (3.4-5.1) mmol/L Chloride 104 (98-107) mmol/L Carbon Dioxide 19 L (22-32) mmol/L BUN 26 H (9-20) mg/dL Creatinine 0.79 (0.66-1.25) mg/dL Estimated GFR > 60 (>60) mL/min BUN/Creatinine Ratio 32.9 H (6-22) Glucose 330 H (80-110) mg/dL Lactate 1.6 (0.7-2.1) mmol/L Calcium 9.2 (8.4-10.2) mg/dL Total Bilirubin 1.2 (0.2-1.3) mg/dL AST 54 (17-59) IU/L ALT 56 H (<50) IU/L Alkaline Phosphatase 94 (38-126) U/L Total Creatine Kinase 248 H (55-170) U/L CK-MB (CK-2) 0.86 (<2.37) ng/mL CK-MB (CK-2) Rel Index 0.3 L (1.5-5.0) % Troponin I < 0.012 (0.01-0.034) ng/mL Total Protein 7.2 (6.3-8.2) g/dL Albumin 4.1 (3.5-5.0) g/dL Globulin 3.1 (1.7-4.1) g/dL Albumin/Globulin Ratio 1.3 (1.0-2.8) Procalcitonin (<0.5) ng/mL Urine Color Urine Appearance Urine pH (4.5-8.0) Ur Specific [place] (1.000-1.035) Urine Protein (Negative) Urine Glucose (UA) (Negative) g/dL Urine Ketones (NEGATIVE) Urine Occult Blood (Negative) Urine Nitrate (Negative) Urine Bilirubin (NEGATIVE) Urine Urobilinogen (0.2) E.U./dL Ur Leukocyte Esterase (NEGATIVE) Urine RBC (0-5/HPF) Urine WBC (0-5/HPF) Urine Bacteria (None) Urine Mucus (Negative) Ur Culture Indicated? Salicylates (<20) mg/dL U Opiates 300ng/mL cut (Negative) Ur Oxycodone Screen (Negative) Urine Methadone Screen (Negative) Acetaminophen (10-30) ug/mL Ur Barbiturates Screen (Negative) U Tricyclic Antidepress (Negative) Ur Phencyclidine Scrn (Negative) Ur Amphetamines Screen (Negative) U Methamphetamines Scrn (Negative) Ur MDMA Scrn (Ecstasy) (Negative) U Benzodiazepines Scrn (Negative) Urine Cocaine Screen (Negative) U Marijuana (THC) Screen (Negative) Ethyl Alcohol ( - 10) mg/dL Ketones 0.18 (<0.27) mmol/L 01/26/23 01/26/23 01/26/23 Range/Units 12:20 12:20 12:20 WBC (4.5-11.0) X10^3/uL RBC (4.5-5.9) X10^6/uL Hgb (13.5-17.5) g/dL Hct (41-53) % MCV (80-100) fL MCH (26-34) PG MCHC (30-36) % RDW (11.6-14.8) % Plt Count (150-400) X10^3/uL Neut % (Auto) (50-75) % Lymph % (Auto) (25-40) % [place] % (Auto) (3-14) % Eos % (Auto) (2-4) % Baso % (Auto) (0-2) % Neut # (Auto) (7419-1398) /uL Lymph # (Auto) (5874-3759) /uL [place] # (Auto) (0-900) /uL Eos # (Auto) (0-450) /uL Baso # (Auto) (0-100) /uL VBG pH (7.33-7.43) Sodium (137-145) mmol/L Potassium (3.4-5.1) mmol/L Chloride (98-107) mmol/L Carbon Dioxide (22-32) mmol/L BUN (9-20) mg/dL Creatinine (0.66-1.25) mg/dL Estimated GFR (>60) mL/min BUN/Creatinine Ratio (6-22) Glucose (80-110) mg/dL Lactate (0.7-2.1) mmol/L Calcium (8.4-10.2) mg/dL Total Bilirubin (0.2-1.3) mg/dL AST (17-59) IU/L ALT (<50) IU/L Alkaline Phosphatase (38-126) U/L Total Creatine Kinase (55-170) U/L CK-MB (CK-2) (<2.37) ng/mL CK-MB (CK-2) Rel Index (1.5-5.0) % Troponin I (0.01-0.034) ng/mL Total Protein (6.3-8.2) g/dL Albumin (3.5-5.0) g/dL Globulin (1.7-4.1) g/dL Albumin/Globulin Ratio (1.0-2.8) Procalcitonin 0.07 (<0.5) ng/mL Urine Color Yellow Urine Appearance Clear Urine pH 5.5 (4.5-8.0) Ur Specific [place] >=1.030 H (1.000-1.035) Urine Protein 1+ H (Negative) Urine Glucose (UA) 2+ H (Negative) g/dL Urine Ketones Negative (NEGATIVE) Urine Occult Blood Negative (Negative) Urine Nitrate Negative (Negative) Urine Bilirubin Negative (NEGATIVE) Urine Urobilinogen 4.0 H (0.2) E.U./dL Ur Leukocyte Esterase Negative (NEGATIVE) Urine RBC None seen (0-5/HPF) Urine WBC 0-1/hpf (0-5/HPF) Urine Bacteria None seen (None) Urine Mucus 1+ H (Negative) Ur Culture Indicated? Cult not indicated Salicylates < 1.0 (<20) mg/dL U Opiates 300ng/mL cut (Negative) Ur Oxycodone Screen (Negative) Urine Methadone Screen (Negative) Acetaminophen < 10 (10-30) ug/mL Ur Barbiturates Screen (Negative) U Tricyclic Antidepress (Negative) Ur Phencyclidine Scrn (Negative) Ur Amphetamines Screen (Negative) U Methamphetamines Scrn (Negative) Ur MDMA Scrn (Ecstasy) (Negative) U Benzodiazepines Scrn (Negative) Urine Cocaine Screen (Negative) U Marijuana (THC) Screen (Negative) Ethyl Alcohol < 10 ( - 10) mg/dL Ketones (<0.27) mmol/L 01/26/23 01/26/23 Range/Units 12:20 12:30 WBC (4.5-11.0) X10^3/uL RBC (4.5-5.9) X10^6/uL Hgb (13.5-17.5) g/dL Hct (41-53) % MCV (80-100) fL MCH (26-34) PG MCHC (30-36) % RDW (11.6-14.8) % Plt Count (150-400) X10^3/uL Neut % (Auto) (50-75) % Lymph % (Auto) (25-40) % [place] % (Auto) (3-14) % Eos % (Auto) (2-4) % Baso % (Auto) (0-2) % Neut # (Auto) (4117-5539) /uL Lymph # (Auto) (8709-6389) /uL [place] # (Auto) (0-900) /uL Eos # (Auto) (0-450) /uL Baso # (Auto) (0-100) /uL VBG pH 7.47 H (7.33-7.43) Sodium (137-145) mmol/L Potassium (3.4-5.1) mmol/L Chloride (98-107) mmol/L Carbon Dioxide (22-32) mmol/L BUN (9-20) mg/dL Creatinine (0.66-1.25) mg/dL Estimated GFR (>60) mL/min BUN/Creatinine Ratio (6-22) Glucose (80-110) mg/dL Lactate (0.7-2.1) mmol/L Calcium (8.4-10.2) mg/dL Total Bilirubin (0.2-1.3) mg/dL AST (17-59) IU/L ALT (<50) IU/L Alkaline Phosphatase (38-126) U/L Total Creatine Kinase (55-170) U/L CK-MB (CK-2) (<2.37) ng/mL CK-MB (CK-2) Rel Index (1.5-5.0) % Troponin I (0.01-0.034) ng/mL Total Protein (6.3-8.2) g/dL Albumin (3.5-5.0) g/dL Globulin (1.7-4.1) g/dL Albumin/Globulin Ratio (1.0-2.8) Procalcitonin (<0.5) ng/mL Urine Color Urine Appearance Urine pH (4.5-8.0) Ur Specific [place] (1.000-1.035) Urine Protein (Negative) Urine Glucose (UA) (Negative) g/dL Urine Ketones (NEGATIVE) Urine Occult Blood (Negative) Urine Nitrate (Negative) Urine Bilirubin (NEGATIVE) Urine Urobilinogen (0.2) E.U./dL Ur Leukocyte Esterase (NEGATIVE) Urine RBC (0-5/HPF) Urine WBC (0-5/HPF) Urine Bacteria (None) Urine Mucus (Negative) Ur Culture Indicated? Salicylates (<20) mg/dL U Opiates 300ng/mL cut Negative (Negative) Ur Oxycodone Screen Negative (Negative) Urine Methadone Screen Negative (Negative) Acetaminophen (10-30) ug/mL Ur Barbiturates Screen Negative (Negative) U Tricyclic Antidepress Negative (Negative) Ur Phencyclidine Scrn Negative (Negative) Ur Amphetamines Screen Negative (Negative) U Methamphetamines Scrn Negative (Negative) Ur MDMA Scrn (Ecstasy) Negative (Negative) U Benzodiazepines Scrn Negative (Negative) Urine Cocaine Screen Negative (Negative) U Marijuana (THC) Screen Positive H (Negative) Ethyl Alcohol ( - 10) mg/dL Ketones (<0.27) mmol/L Point of Care Testing Glucose POC 309 Imaging Data Chest x-ray: Radiologist's Impression: PROCEDURE:? XR CHEST 1V ? INDICATIONS:? confusion ? TECHNIQUE:? One view of the chest was acquired.? ? COMPARISON:? [facility], CR, XR CHEST 1V, 10/15/2022, 13:08. ? FINDINGS:? ? Surgical changes and devices:? Left-sided pacer. ? Lungs and pleura:? Lungs are clear.? No pleural effusions or pneumothorax.? ? Mediastinum:? Mediastinal contours appear normal.? Heart size is normal.? ? Bones and chest wall:? No suspicious bony lesions.? Overlying soft tissues appear unremarkable.? ? IMPRESSION:? No acute process. ? ? Dictated by: Zia Velázquez M.D. on 01/26/2023 at 13:23 ? CT scan - head: Radiologist's Impression: PROCEDURE:? CT HEAD/BRAIN WO CON ? INDICATIONS:? fall ? TECHNIQUE:? Noncontrast 4.5 mm thick angled axial sections acquired from the foramen magnum to the vertex, with coronal and sagittal reformats.? For radiation dose reduction, the following was used:? automated exposure control, adjustment of mA and/or kV according to patient size.? ? COMPARISON:? [facility], CT, CT HEAD/BRAIN WO CON, 10/15/2022, 13:23. ? FINDINGS:? Image quality:? Excellent.? ? CSF spaces:? Basal cisterns are patent.? No extra-axial fluid collections.? The ventricles are symmetric in size and shape.? ? Brain:? No intracranial bleeds or masses.? There is cerebral volume loss for age, with resultant ventricular and sulcal prominence.? There are periventricular and deep white matter chronic small vessel ischemic changes.? There is intracranial internal carotid artery atherosclerosis.? ? Skull and face:? Calvarium and visualized facial bones appear intact, without suspicious lesions.? ? Sinuses:? Visualized sinuses and mastoids are clear.? ? IMPRESSION:? No acute intracranial abnormalities. ? ? Dictated by: Zia Velázquez M.D. on 01/26/2023 at 13:09 ? ECG Data Interpretation: Normal sinus rhythm rate 69 GA interval 170 QRS [address] changes T-wave inversion persistently noted in lead 3 with Q-waves inferiorly that remain unchanged from previous EKGs MDM Narrative Medical decision making narrative: Patient 72 year old male who presents with possible confusion and hypoglycemia. He is not found to be hypoglycemic or in DKA. Although mildly acidotic with a bicarb of 19. Anion gap 10 pH 7.4, no DKA. Renal function is BUN slightly elevated at 26 previously 11 creatinine 0.79 no significant electrolyte abnormalities no leukocytosis. No evidence of UTI or pneumonia. CT head and neck are also negative they were done secondary to fall. Patient has an NIH stroke scale of 0 he has no slurring of speech he really is able to give me history I do not appreciate any significant confusion, TIA/CVA were considered however I think less likely. He is given 1 L of fluid with slightly elevated BUN and bicarb. He seems alert oriented in with it although neighbor reports that he is slightly slower. At this time I have no indication to keep him in the hospital. Discharge Plan Departure Patient Disposition: Home Clinical Impression: Diabetes Instructions: DI for Diabetes Type 2 Activity Restrictions/Additional Instructions: *You have been diagnosed with diabetes *What to do: At this time no evidence of infection. Increase fluid intake. *Continue to take medications as directed *Follow up with your primary care provider in 2-3 days or call [phone] *Return to ER if you should have increased confusion weakness numbness tingling chest pain or any new, worsening or concerning symptoms Prescriptions: No Action nortriptyline 50 mg capsule See Rx Instructions PO HS Qty: 180 3RF Dose Instruction: 1-2 caps PO HS; Rx Instructions: 1-2 caps PO HS; clopidogrel 75 mg tablet 75 mg PO DAILY Qty: 90 3RF tamsulosin 0.4 mg capsule 0.4 mg PO DAILY Qty: 90 3RF Humulin 70/30 U-100 KwikPen 100 unit/mL (70-30) insulin pen 70 unit SUBCUT BID Qty: 200 10RF Rx Instructions: 85 units twice daily, SUBCUT ; amlodipine 5 mg tablet 5 mg PO DAILY Qty: 90 1RF ivabradine 5 mg tablet 5 mg PO BID Qty: 180 3RF Rx Instructions: must administer with a meal/food oxycodone 5 mg tablet 5 mg PO Q6H PRN (Reason: pain) Qty: 60 0RF atorvastatin 20 mg tablet 20 mg PO DAILY Qty: 90 1RF metformin 500 mg tablet extended release 24 hr 1,000 mg PO BID Qty: 360 3RF (DME) FreeStyle Tara 14 Day [place] Misc See Rx Instructions .ROUTE .MEDSUPPLY Qty: 1 0RF Rx Instructions: USE FOR CONTINUOUS BLOOD GLUCOSE MONITORING. REPLACE EVERY YEAR. (DME) FreeStyle Tara 14 Day Sensor Kit See Rx Instructions .ROUTE .MEDSUPPLY Qty: 1 12RF Rx Instructions: USE FOR CONTINUOUS GLUCOSE MONITORING. REPLACE EVERY 30 DAYS. (DME) Dexcom G6 Sensor Device See Rx Instructions .Route Qty: 3 3RF Rx Instructions: As directed (DME) Dexcom G6 Numerical Control Machine Tool Operator Misc See Rx Instructions .Route Qty: 1 0RF Rx Instructions: As directed ([facility]) Dexcom G6 Transmitter Device See Rx Instructions .Route Qty: 1 0RF Rx Instructions: As directed ([facility]) blood-glucose meter [Blood Glucose Monitoring] Kit See Rx Instructions .ROUTE .MEDSUPPLY Qty: 1 0RF Rx Instructions: As directed ([facility] [place]) Glucose: Test Strips 0 .Route .MEDSUPPLY Qty: 500 11RF Rx Instructions: Use as directed to check blood sugar up to 4 times daily Entresto 24-26 mg tablet 1 tab PO BID pantoprazole 40 mg tablet,delayed release (DR/EC) 40 mg PO DAILY trazodone 50 mg tablet 50 mg PO BEDTIME gabapentin 300 mg capsule 600 mg PO QPM Qty: 180 3RF Rx Instructions: patient requests this w/ dinner instead of HS magnesium oxide 400 mg (241.3 mg magnesium) tablet 400 mg PO BID Qty: 180 3RF carvedilol 25 mg tablet 25 mg PO BID Qty: 180 3RF Rx Instructions: must administer with a meal/food aspirin 325 mg Tablet,Delayed Release (Dr/Ec) 325 mg PO DAILY Qty: 250 0RF acetaminophen 325 mg Tablet 650 mg PO Q6HR PRN (Reason: Fever/Mild Pain (1-3)) Qty: 60 0RF Referrals: Salvador Guzman MD [Primary Care Provider] - Stand Alone Forms: Patient Portal/API
--- NOTE | 2023-01-26 12:45 | DI.CT.S_ITS ---
PROCEDURE: CT CERVICAL SPINE WO CON INDICATIONS: fall TECHNIQUE: Noncontrast 3 mm thick sections acquired from the skull base to the T4 level. Sagittal and coronal reformats were then constructed. For radiation dose reduction, the following was used: automated exposure control, adjustment of mA and/or kV according to patient size. COMPARISON: None. FINDINGS: Image quality: Excellent. Bones: No fractures or dislocations. Visualized superior ribs are intact. Soft tissues: Prevertebral soft tissues are normal in thickness. No paravertebral hematomas. No apical pneumothoraces. IMPRESSION: No fracture. Dictated by: Zia Velázquez M.D. on 01/26/2023 at 13:10 Approved by: Zia Velázquez M.D. on 01/26/2023 at 13:11
--- NOTE | 2023-01-26 12:45 | DI.CT.S_ITS ---
PROCEDURE: CT HEAD/BRAIN WO CON INDICATIONS: fall TECHNIQUE: Noncontrast 4.5 mm thick angled axial sections acquired from the foramen magnum to the vertex, with coronal and sagittal reformats. For radiation dose reduction, the following was used: automated exposure control, adjustment of mA and/or kV according to patient size. COMPARISON: [facility], CT, CT HEAD/BRAIN WO CON, 10/15/2022, 13:23. FINDINGS: Image quality: Excellent. CSF spaces: Basal cisterns are patent. No extra-axial fluid collections. The ventricles are symmetric in size and shape. Brain: No intracranial bleeds or masses. There is cerebral volume loss for age, with resultant ventricular and sulcal prominence. There are periventricular and deep white matter chronic small vessel ischemic changes. There is intracranial internal carotid artery atherosclerosis. Skull and face: Calvarium and visualized facial bones appear intact, without suspicious lesions. Sinuses: Visualized sinuses and mastoids are clear. IMPRESSION: No acute intracranial abnormalities. Dictated by: Zia Velázquez M.D. on 01/26/2023 at 13:09 Approved by: Zia Velázquez M.D. on 01/26/2023 at 13:09
[2023-01-26 12:46] LABS: pH VBG 7.47 (7.33-7.43)
[2023-01-26 12:51] LABS: Appearance Urine UA CLEAR; Bilirubin Urine UA NEGATIVE (NEGATIVE); Color Urine UA YELLOW; Glucose Urine UA 2+ g/dL (Negative); Ketones Urine UA NEGATIVE (NEGATIVE); Leukocyte Esterase Urine UA NEGATIVE (NEGATIVE); Nitrite Urine UA NEGATIVE (Negative); Occult Blood Urine UA NEGATIVE (Negative); Protein Urine UA 1+ (Negative); Specific Gravity Urine UA >=1.030 (1.000-1.035); pH Urine UA 5.5 (4.5-8.0)
[2023-01-26 12:53] LABS: Lactate (Lactic Acid) 1.6 mmol/L (0.7-2.1)
[2023-01-26 12:55] LABS: Alanine Aminotransferase 56 IU/L (<50); Albumin 4.1 g/dL (3.5-5.0); Albumin Globulin Ratio 1.3 (1.0-2.8); Alkaline Phosphatase 94 U/L (38-126); Aspartate Aminotransferase 54 IU/L (17-59); BUN Creatinine Ratio 32.9 (6-22); Bilirubin Total 1.2 mg/dL (0.2-1.3); Blood Urea Nitrogen 26 mg/dL (9-20); Calcium 9.2 mg/dL (8.4-10.2); Carbon Dioxide 19 mmol/L (22-32); Chloride 104 mmol/L (98-107); Creatine Kinase 248 U/L (55-170); Estimated Glomerular Filt Rate > 60 mL/min (>60); Globulin 3.1 g/dL (1.7-4.1); Glucose 330 mg/dL (80-110); Sodium 133 mmol/L (137-145); Total Protein 7.2 g/dL (6.3-8.2)
[2023-01-26 12:57] LABS: Ketones (Beta-Hydroxybutyrate) 0.18 mmol/L (<0.27)
[2023-01-26 13:01] LABS: Bacteria Urine None Seen; Culture Indicated Urine Cult Not Indicated; Mucus Urine 1+ (Negative); RBC Urine None Seen (0-5/HPF); WBC Urine 0-1/HPF (0-5/HPF)
[2023-01-26 13:04] LABS: Acetaminophen < 10 ug/mL (10-30); Ethanol (ETOH) < 10 mg/dL; Salicylate < 1.0 mg/dL (<20)
[2023-01-26 13:09] LABS: Troponin I < 0.012 ng/mL (0.01-0.034)
--- NOTE | 2023-01-26 13:09 | DI.RAD.S_ITS ---
PROCEDURE: XR CHEST 1V INDICATIONS: confusion TECHNIQUE: One view of the chest was acquired. COMPARISON: [facility], CR, XR CHEST 1V, 10/15/2022, 13:08. FINDINGS: Surgical changes and devices: Left-sided pacer. Lungs and pleura: Lungs are clear. No pleural effusions or pneumothorax. Mediastinum: Mediastinal contours appear normal. Heart size is normal. Bones and chest wall: No suspicious bony lesions. Overlying soft tissues appear unremarkable. IMPRESSION: No acute process. Dictated by: Zia Velázquez M.D. on 01/26/2023 at 13:23 Approved by: Zia Velázquez M.D. on 01/26/2023 at 13:23
[2023-01-26 13:10] LABS: CKMB % Relative Index 0.3 % (1.5-5.0); Creatine Kinase MB 0.86 ng/mL (<2.37); HEMOLYSIS 18 (0-50)
[2023-01-26 13:14] LABS: Procalcitonin 0.07 ng/mL (<0.5)
[2023-01-26 13:22] LABS: Ur Creatinine Normal (Normal); Ur Specific Gravity Normal (Normal); Urine pH Normal (Normal)
[2023-01-26 13:23] LABS: UR Morphine/Opiate cutoff 300 Negative (Negative); Urine Amphetamines Negative (Negative); Urine Barbiturates Negative (Negative); Urine Benzodiazepines Negative (Negative); Urine Cocaine Negative (Negative); Urine MDMA Negative (Negative); Urine Methadone Negative (Negative); Urine Methamphetamines Negative (Negative); Urine Oxycodone Negative (Negative); Urine Phencyclidine Negative (Negative); Urine Tetrahydrocannabinol Positive (Negative); Urine Tricyclic Antidepressant Negative (Negative)
[2023-01-26] MEDS: SODIUM CHLORIDE 0.9% 1,000 ML 1000 ML IV (13:39)
== END 2023-01-26 14:45 | disposition home or self-care (01) ==
PROVIDERS: Emergency Provider Emergency Medicine; PCP Internal Medicine
DX: R41.0 Disorientation, unspecified (principal); E11.649 Type 2 diabetes mellitus with hypoglycemia without coma; R07.9 Chest pain, unspecified
CPT/HCPCS: 36415; 70450; 71045; 72125; 80053; 80305; 80320; 80329; 81001; 82009; 82550; 82553; 82962; 83605; 83986; 84145; 84484; 85025; 87040; 93005; 93010; 96360; 99284; G0480

== ENCOUNTER → 2023-01-30 11:37 | Outpatient (CLI) | payer MEDICARE, SELFPAY ==
[2022-10-15 21:21] VITALS: BMI 29.8
[2023-01-30 13:00] LABS: Add Manual Diff / Slide Review NO; Basophils Absolute Auto 0 /uL (0-100); Basophils Percent Auto 0.2 % (0-2); Eosinophils Absolute Auto 100 /uL (0-450); Eosinophils Percent Auto 2.4 % (2-4); Hemoglobin 12.8 g/dL (13.5-17.5); Lymphocytes Absolute Auto 1200 /uL (1100-4500); Lymphocytes Percent Auto 21.3 % (25-40); Mean Corpuscular HGB Conc 33.8 % (30-36); Mean Corpuscular Hemoglobin 29.5 PG (26-34); Mean Corpuscular Volume 87.4 fL (80-100); Monocytes Absolute Auto 500 /uL (0-900); Monocytes Percent Auto 8.2 % (3-14); Neutrophils Absolute Auto 3900 /uL (1500-7000); Neutrophils Percent Auto 67.9 % (50-75); Platelet Count 135 X10^3/uL (150-400); Red Blood Cell Count 4.34 X10^6/uL (4.5-5.9); Red Cell Distribution Width 18.4 % (11.6-14.8); White Blood Cell Count 5.8 X10^3/uL (4.5-11.0)
[2023-01-30 13:05] LABS: Appearance Urine UA CLEAR; Bilirubin Urine UA NEGATIVE (NEGATIVE); Color Urine UA YELLOW; Glucose Urine UA NEGATIVE (Negative); Ketones Urine UA TRACE (NEGATIVE); Leukocyte Esterase Urine UA NEGATIVE (NEGATIVE); Nitrite Urine UA NEGATIVE (Negative); Occult Blood Urine UA NEGATIVE (Negative); Protein Urine UA TRACE (Negative); Specific Gravity Urine UA 1.025 (1.000-1.035)
[2023-01-30 13:18] LABS: RBC Urine None Seen (0-5/HPF); Squamous Epithelial Cell Urine 1-5 /HPF (0-5/HPF); WBC Urine 1-5/HPF (0-5/HPF)
[2023-01-30 13:19] LABS: Bacteria Urine None Seen; Culture Indicated Urine Cult Not Indicated; Mucus Urine 2+ (Negative)
[2023-01-30 13:43] LABS: HEMOLYSIS < 15 (0-50); Potassium 3.9 mmol/L (3.4-5.1)
[2023-01-30 13:44] LABS: Alanine Aminotransferase 66 IU/L (<50); Albumin 3.7 g/dL (3.5-5.0); Albumin Globulin Ratio 1.2 (1.0-2.8); Alkaline Phosphatase 137 U/L (38-126); Aspartate Aminotransferase 42 IU/L (17-59); BUN Creatinine Ratio 14.1 (6-22); Bilirubin Total 0.3 mg/dL (0.2-1.3); Blood Urea Nitrogen 11 mg/dL (9-20); Carbon Dioxide 25 mmol/L (22-32); Chloride 105 mmol/L (98-107); Estimated Glomerular Filt Rate > 60 mL/min (>60); Glucose 142 mg/dL (80-110); Sodium 138 mmol/L (137-145); Total Protein 6.7 g/dL (6.3-8.2)
[2023-01-30 13:57] LABS: Prolactin 12.3 ng/mL (3.7-17.9)
[2023-01-30 14:26] LABS: TSH w/ Reflex to FT4 1.45 uIU/mL (0.47-4.68)
== END ==
PROVIDERS: PCP Internal Medicine; Referring Provider Internal Medicine; Visit Provider Internal Medicine
DX: E11.9 Type 2 diabetes mellitus without complications (principal); I10 Essential (primary) hypertension; R63.4 Abnormal weight loss; R56.9 Unspecified convulsions
CPT/HCPCS: 36415; 80053; 81001; 84146; 84443; 85025

== ENCOUNTER → 2023-02-04 10:56 | Outpatient (CLI) | payer MEDICARE, SELFPAY ==
[2022-10-15 21:21] VITALS: BMI 29.8
--- NOTE | 2023-02-04 13:02 | DI.CT.S_ITS ---
PROCEDURE: CT HEAD/BRAIN WO CON INDICATIONS: Slurred Speech/TIA TECHNIQUE: Noncontrast 4.5 mm thick angled axial sections acquired from the foramen magnum to the vertex, with coronal and sagittal reformats. For radiation dose reduction, the following was used: automated exposure control, adjustment of mA and/or kV according to patient size. COMPARISON: [facility], CT, CT ABDOMEN PELVIS W CON, 02/04/2023, 13:17. [facility], CT, CT HEAD/BRAIN WO CON, 10/15/2022, 13:23. [facility], CT, CT HEAD/BRAIN WO CON, 01/26/2023, 12:54. FINDINGS: Image quality: Excellent. CSF spaces: There is a small amount of low-density fluid seen adjacent to the left frontal lobe, which is best appreciated on coronal images, as on series 4, image 23, measuring 4 mm in thickness. Basal cisterns are patent. The ventricles are symmetric in size and shape. Brain: No intracranial masses. There is cerebral volume loss for age, with resultant ventricular and sulcal prominence. There are periventricular and deep white matter chronic small vessel ischemic changes. There is intracranial internal carotid artery atherosclerosis. Skull and face: Calvarium and visualized facial bones appear intact, without suspicious lesions. Sinuses: Visualized sinuses and mastoids are clear. IMPRESSION: A small amount of low-density, chronic appearing left extra-axial fluid can be seen. No acute features are seen. This has the appearance of a chronic subdural fluid collection. However, it is new compared to the most recent CT dated 01/26/2023. Otherwise, unremarkable noncontrast head CT for age, without a cause of the patient's presenting symptoms identified. If there is strong clinical suspicion for an acute stroke, please consider a brain MRI for further evaluation, as it is more sensitive (assuming that there is no contraindication to MRI). Note: Dr. Guzman was not available to discuss this case at the time of this dictation. Findings relayed to him via his staff, Mell, at 1:21 p.m. [place] time on 02/04/2023. Dr. Guzman will call back if there are any questions. Dictated by: Moo Gottlieb M.D. on 02/04/2023 at 13:12 Approved by: Moo Gottlieb M.D. on 02/04/2023 at 13:22
--- NOTE | 2023-02-04 13:03 | DI.CT.S_ITS ---
PROCEDURE: CT ABDOMEN PELVIS W CON INDICATIONS: Hepatitis TECHNIQUE: After the administration of oral and intravenous contrast, axial sections were acquired from the lung bases to the pubic symphysis. Coronal and sagittal reformats were performed. For radiation dose reduction, the following was used: automated exposure control, adjustment of mA and/or kV according to patient size. COMPARISON:[facility], CT, CT ABDOMEN PELVIS W CON, 07/30/2021, 9:44. FINDINGS: Image quality: Good Lower chest: Scattered scarring/atelectasis. There is fluid is distal esophagus, as well as mild to moderate wall, slightly decreased from prior imaging. Partially seen cardiac electrode leads, coronary calcifications, and biatrial enlargement. Solid organs: Possible hepatic steatosis. Borderline hepatomegaly, measuring 20-21 cm. Gallbladder is unremarkable. No pathologic dilation of the biliary tree or pancreatic duct. No splenomegaly. No adrenal nodules. No hydronephrosis. Bosniak 1 and 2 renal lesions are present, for which no dedicated followup is necessary per 2019 proposed guidelines. Vessels and lymph nodes: No abdominal aortic aneurysm. The main portal vein is patent. No pathologic adenopathy by size criteria. Bowel and peritoneum: No evidence of small bowel obstruction. Moderate colorectal stool burden is present. Body wall: Fat stranding symmetrically in the ventral body wall, similar to prior. Pelvis: Heterogeneous, mildly enlarged prostate. Mild bladder wall thickening. These findings are not well assessed on CT, but are stable. Bones: No acute or suspicious osseous finding. There is scattered degenerative changes. IMPRESSION: Mild, borderline hepatomegaly measuring 20-21 cm, as well as possible hepatic steatosis. No acute changes compared to prior. Esophageal wall thickening partially seen, has decreased, most commonly due to reflux esophagitis, consider endoscopy correlation if needed. Mild bladder wall thickening, commonly due to bladder outlet obstruction in the setting of enlarged prostate, consider also correlation with urinalysis and PSA if necessary. Other findings as above. Dictated by: Miguelito Liriano M.D. on 02/04/2023 at 15:34 Approved by: Miguelito Liriano M.D. on 02/04/2023 at 15:40
== END ==
PROVIDERS: PCP Internal Medicine; Referring Provider Internal Medicine; Visit Provider Internal Medicine
DX: R47.81 Slurred speech (principal); G45.9 Transient cerebral ischemic attack, unspecified; K75.9 Inflammatory liver disease, unspecified; N40.0 Benign prostatic hyperplasia without lower urinary tract symptoms; I25.10 Atherosclerotic heart disease of native coronary artery without angina pectoris
CPT/HCPCS: 70450; 74177; Q9967

== ENCOUNTER → 2023-02-14 06:37 | Outpatient (CLI) | payer MEDICARE, SELFPAY ==
[2022-10-15 21:21] VITALS: BMI 29.8
--- NOTE | 2023-02-14 | DI.ECHO.S_ITS ---
[facility] +---------+ [facility] +---------+ : : [address] [place] : : : : [phone] : : : : Phone: [phone] Echocardiogram Report + + :Name: CHRISTOPHE COBOS Study Date: 02/14/2023 Height: 26.5 in: :[facility] ReadingLocation: Weight: 185 lb : : Gender: Male BSA: 1.00 m2 : :: 1950 Age: 72 yrs BP: 107/57 mmHg: :Reason For Study: Cardiomyopathy : : Performed By: Huong Gary : :Referring: ABDULAZIZ AGUILERA : + + Interpretation Summary The left ventricle is normal in size and wall thickness. The ejection fraction is estimated to be 45-50%. Previous LVEF 40 to 45%. The right ventricle is normal in size and function. There is a pacemaker lead in the right ventricle. There is mild aortic regurgitation. Compared to the prior echo study, there has been no change in the severity of aortic regurgitation. There is mild tricuspid regurgitation. Compared to the prior echo exam, there has been no change in TR severity. The IVC is of normal diameter and collapses greater than 50% with a sniff. This suggests a low right atrial pressure of 3 mm Hg. The ascending aorta is mild-moderately enlarged. 4.2 cm in diameter. Previously 4.3 cm in diameter. The aortic arch is mildly enlarged. Procedure: A two-dimensional transthoracic echocardiogram with color flow and Doppler was performed. The study quality was technically adequate. Comparison is made with the echocardiogram of 10/16/2022. The patient was in normal sinus rhythm during the exam. Left Ventricle: The left ventricle is normal in size and wall thickness. There is no thrombus. The ejection fraction is estimated to be 45-50%. There is mild global hypokinesis of the left ventricle. Diastolic parameters suggest a relaxation abnormality of the left ventricle, consistent with probable normal filling pressures. Right Ventricle: The right ventricle is normal in size and function. There is a pacemaker lead in the right ventricle. Atria: Both atria are severely dilated. The left atrium has remained unchanged in size since the prior echo exam. The right atrium has mildly increased in size since the prior echo exam. There is no Doppler evidence for an interatrial shunt. Mitral Valve: The mitral valve leaflets are slightly calcified. There is trace mitral regurgitation. Previously mild mitral regurgitation. Aortic Valve: The aortic valve is trileaflet. The aortic valve is mildly calcified. There is no aortic valve stenosis. There is mild aortic regurgitation. Compared to the prior echo study, there has been no change in the severity of aortic regurgitation. Tricuspid Valve: The tricuspid valve is normal. There is mild tricuspid regurgitation. The right ventricular systolic pressure is estimated to be at least 19 mmHg based on an estimated right atrial pressure of 3 mm Hg. Compared to the prior echo exam, there has been no change in TR severity. Pulmonic Valve: The pulmonic valve is not well seen, but is grossly normal. There is a trace or physiologic amount of pulmonic regurgitation. Great Vessels: The aortic root is normal size. The ascending aorta is mild- moderately enlarged. The aortic arch is mildly enlarged. The IVC is of normal diameter and collapses greater than 50% with a sniff. This suggests a low right atrial pressure of 3 mm Hg. Pericardium/ Pleura There is no pericardial effusion. MMode/2D Measurements & Calculations LVIDd: 5.3 cm LVOT diam: 2.3 cm LVIDs: 3.5 cm Ao root diam: 3.7 cm FS: 34.7 % asc Aorta Diam: 4.2 cm EPSS: 1.3 cm Ao Arch Diam (Prox Trans): 3.7 cm IVSd: 0.90 cm LVPWd: 1.1 cm LV thompson. diameter/BSA (cm/m^2): 5.3 LV sys. diameter/BSA (cm/m^2): 3.5 LA A2 area: 20.8 cm2 RA long axis: 6.5 cm LA A4 area: 21.6 cm2 RA area: 24.1 cm2 LA length (vol): 5.4 cm RA vol: 76.3 ml LA vol: 70.7 ml RA : 76.7 ml/m2 LA vol index: 71.0 ml/m2 IVC diam: 1.7 cm RVD1 (basal): 3.9 cm TAPSE: 1.7 cm Doppler Measurements & Calculations Ao V2 max: 110.5 cm/sec LVOT Max Ozzie: 63.2 cm/sec Ao V2 mean: 82.1 cm/sec LV V1 max P.6 mmHg Ao max P.9 mmHg LV V1 VTI: 13.9 cm Ao mean P.0 mmHg ADAM(I,D): 2.6 cm2 Ao V2 VTI: 23.4 cm ADAM(V,D): 2.5 cm2 sev ratio: 0.59 ADAM indexed to BSA (cm^2/m^2): 2.6 AI P1/2t: 652.5 msec AI dec slope: 114.0 cm/sec2 MV E max ozzie: 44.3 cm/sec TR max ozzie: 197.8 cm/sec MV A max ozzie: 49.9 cm/sec TR max P.6 mmHg MV E/A: 0.89 PA V2 max: 60.2 cm/sec Med Peak E' Ozzie: 4.2 cm/sec PA V2 mean: 39.1 cm/sec E/E' med: 10.5 PA mean P.71 mmHg Lat Peak E' Ozzie: 6.6 cm/sec PA pr(Accel): 44.7 mmHg E/E' lat: 6.7 E/e' average: 8.6 MV dec time: 0.43 sec SV(LVOT): 59.9 ml Reading Physician:04:23 PM
== END ==
PROVIDERS: PCP Internal Medicine; Referring Provider Internal Medicine Cardiovascular Disease; Visit Provider Internal Medicine Cardiovascular Disease
DX: I77.89 Other specified disorders of arteries and arterioles (principal); I42.8 Other cardiomyopathies; R47.81 Slurred speech; I08.2 Rheumatic disorders of both aortic and tricuspid valves; Z95.0 Presence of cardiac pacemaker
CPT/HCPCS: 93306

== ENCOUNTER 2023-02-25 14:04 | Inpatient (IN) | payer MEDICARE, SELFPAY ==
[2022-10-15 21:21] VITALS: BMI 29.8
[2023-02-25] VITALS (15 sets, daily range): BP systolic 121–166; BP diastolic 59–76; PULSE 69–88; RESP 17–20; TEMP 36.2–36.5; O2SAT 95–100; BMI 27.3; BMI 26.0
[2023-02-25 15:25] LABS: Add Manual Diff / Slide Review NO; Basophils Absolute Auto 0 /uL (0-100); Basophils Percent Auto 0.2 % (0-2); Eosinophils Absolute Auto 0 /uL (0-450); Eosinophils Percent Auto 0.5 % (2-4); Hematocrit 34.3 % (41-53); Hemoglobin 11.9 g/dL (13.5-17.5); Lymphocytes Absolute Auto 1500 /uL (1100-4500); Lymphocytes Percent Auto 19.1 % (25-40); Mean Corpuscular HGB Conc 34.7 % (30-36); Mean Corpuscular Hemoglobin 30.3 PG (26-34); Mean Corpuscular Volume 87.2 fL (80-100); Monocytes Absolute Auto 800 /uL (0-900); Monocytes Percent Auto 10.8 % (3-14); Neutrophils Absolute Auto 5300 /uL (1500-7000); Neutrophils Percent Auto 69.4 % (50-75); Platelet Count 164 X10^3/uL (150-400); Red Blood Cell Count 3.93 X10^6/uL (4.5-5.9); Red Cell Distribution Width 18.7 % (11.6-14.8); White Blood Cell Count 7.7 X10^3/uL (4.5-11.0)
[2023-02-25 15:38] LABS: Alanine Aminotransferase 31 IU/L (<50); Albumin 3.8 g/dL (3.5-5.0); Albumin Globulin Ratio 1.4 (1.0-2.8); Alkaline Phosphatase 83 U/L (38-126); Aspartate Aminotransferase 24 IU/L (17-59); BUN Creatinine Ratio 41.2 (6-22); Bilirubin Total 0.9 mg/dL (0.2-1.3); Blood Urea Nitrogen 35 mg/dL (9-20); Calcium 8.7 mg/dL (8.4-10.2); Carbon Dioxide 21 mmol/L (22-32); Chloride 100 mmol/L (98-107); Estimated Glomerular Filt Rate > 60 mL/min (>60); Globulin 2.8 g/dL (1.7-4.1); Glucose 188 mg/dL (80-110); HEMOLYSIS < 15 (0-50); Lipase 373 U/L (23-300); Potassium 3.4 mmol/L (3.4-5.1); Sodium 131 mmol/L (137-145); Total Protein 6.6 g/dL (6.3-8.2)
--- NOTE | 2023-02-25 18:59 | ED.GENADULT ---
HPI - General Adult General Chief complaint: Diabetic Problem Stated complaint: weakness,P/t is Diabetic had no meds in 3 days Time Seen by Provider: 02/25/23 14:50 Source: patient Mode of arrival: Ambulatory History of Present Illness HPI narrative: Patient is a 72-year-old male. He is an insulin-dependent diabetic. Also has a pacemaker in place. Who is here for evaluation of 3 days of weakness. He states that he does not have chest pain or fevers or shortness of breath or abdominal pain. No nausea. He has been having some loose stools that are black in color. He states he has been so fatigued that he can not get up off the bed. Has not had any of his medicines since yesterday. He states he has been urinating himself because he so fatigued that he could not get up go to the bathroom. Related Data Home Medications Medication Instructions Recorded Confirmed sacubitril 24 mg-valsartan 26 mg 1 tab PO BID 03/19/22 01/30/23 tablet (Entresto) pantoprazole 40 mg tablet,delayed 40 mg PO DAILY 09/17/22 01/30/23 release trazodone 50 mg tablet 50 mg PO BEDTIME 09/17/22 01/30/23 Previous Rx's Medication Instructions Recorded nortriptyline 50 mg capsule See Rx Instructions PO HS #180 caps 04/30/21 aspirin 325 mg tablet,delayed 325 mg PO DAILY #250 tabs 07/06/21 release Glucose: Test Strips #500 ea 08/27/21 blood-glucose meter (Blood Glucose #1 ea 08/27/21 Monitoring kit) clopidogrel 75 mg tablet 75 mg PO DAILY #90 tabs 01/02/22 acetaminophen 325 mg tablet 650 mg PO Q6HR PRN Fever/Mild Pain 05/18/22 (1-3) #60 tabs flash glucose scanning reader #1 ea 06/20/22 (FreeStyle Tara 14 Day Hewitt) flash glucose sensor (FreeStyle #1 ea 06/20/22 Tara 14 Day Sensor kit) blood-glucose meter,continuous #1 ea 06/26/22 (Dexcom G6 Polysilicon Preparation Worker) blood-glucose sensor (Dexcom G6 #3 ea 06/26/22 Sensor device) blood-glucose transmitter (Dexcom #1 ea 06/26/22 G6 Transmitter device) gabapentin 300 mg capsule 600 mg PO QPM #180 caps 09/17/22 tamsulosin 0.4 mg capsule 0.4 mg PO DAILY #90 caps 10/14/22 carvedilol 25 mg tablet 25 mg PO BID #180 tabs 10/16/22 magnesium oxide 400 mg (241.3 mg 400 mg PO BID #180 tabs 10/16/22 magnesium) tablet insulin NPH-regular 70-30 U-100 70 unit (0.7 mL) SUBCUT BID #200 mL 11/11/22 insulin 100 unit/mL subcutaneous pen (Humulin 70/30 U-100 KwikPen) amlodipine 5 mg tablet 5 mg PO DAILY #90 tabs 12/19/22 ivabradine 5 mg tablet 5 mg PO BID #180 tabs 12/20/22 atorvastatin 20 mg tablet 20 mg PO DAILY #90 tabs 01/03/23 metformin 500 mg tablet,extended 1,000 mg PO BID #360 tabs 01/06/23 release 24 hr oxycodone 5 mg tablet 5 mg PO Q6H PRN pain #60 tabs 02/09/23 Allergies Allergy/AdvReac Type Severity Reaction Status Date / Time No Known Drug Allergies Allergy Verified 02/25/23 18:42 Review of Systems Review of Systems ROS Unobtainable: All systems reviewed & are unremarkable except as noted in HPI and below Patient History Medical History Acute GI bleeding Automatic implantable cardiac defibrillator in situ (~07/2019) Cerebrovascular accident Degeneration of intervertebral disc of cervical region Diabetic peripheral neuropathy (07/25/15) Essential hypertension emt intermediate current use of insulin (08/20/16) Mixed hyperlipidemia Nonischemic cardiomyopathy (09/09/16) Type 2 diabetes mellitus with hyperglycemia, with long-term current use of insulin Type 2 diabetes mellitus without complication Social History marital status: unmarried,single number of children: 0 household members: none lives independently: Yes caregiver/support person: Yes housing: house pets and animals: Yes education level: other (Bachelor's Degree) occupational status: other (Retired) current occupational exposures/hazards: No 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 alondra/latter day: Hinduism travel history: recent leisure activities: music, reading and other (Hiking.) Smoking Status: Never smoker quit status: quit date established second hand exposure: No alcohol intake: current substance use type: does not use Smoking Status: Never smoker alcohol intake frequency: a few times a week Alcohol type: hard liquor Substance Use Type: does not use Exam Initial Vital Signs Initial Vital Signs: Vital Signs Temperature 97.7 F 02/25/23 14:22 Pulse Rate 76 02/25/23 14:22 Respiratory Rate 18 02/25/23 14:22 Blood Pressure 121/67 02/25/23 14:22 Pulse Oximetry 98 02/25/23 14:22 Oxygen Delivery Method Room Air 02/25/23 14:22 Const General: cooperative and comfortable HENMT Head: normal to inspection and normocephalic Resp Effort & Inspection: normal respiratory effort Auscultation: clear to auscultation bilaterally Cardio Rate: regular rate Rhythm: regular rhythm GI Inspection: non-distended Skin General: no rashes or lesions noted Neuro General: patient alert, patient awake and moves all extremities Course Orders Ordered: ED Orders 02/25/23 19:00 XR chest 1V Stat EKG-12 Lead Stat 02/25/23 20:00 Ethanol (ETOH) Stat Troponin & CK Cardiac Panel Stat 02/25/23 20:45 Urinalysis and Microscopic Stat 02/25/23 20:59 Hemoglobin and Hematocrit Stat 02/25/23 21:29 Consult to General Surgery Stat 02/25/23 21:50 COVID19 -Nasal RAPID Stat Acetaminophen (Acetaminophen 325 Mg Tablet) 650 mg PO Q6H PRN PRN Reason: Fever/Mild Pain (1-3) Amlodipine Besylate (Amlodipine 5 Mg Tablet) 5 mg PO DAILY [facility] Atorvastatin Calcium (Atorvastatin 20 Mg Tablet) 20 mg PO DAILY [facility] Carvedilol (Carvedilol 12.5 Mg Tablet) 25 mg PO BID [facility] Dextrose (Dextrose 50 % In Water 25 Gm/50 Ml Syringe) 25 gm IV PRN PRN PRN Reason: Hypoglycemia Gabapentin (Gabapentin 300 Mg Capsule) 600 mg PO QPM REINA Lactated Ringer's (Lactated Ringers) 1,000 mls @ 100 mls/hr IV CONT REINA Last Admin: 02/25/23 23:56 Dose: 100 mls/hr Documented By: AGW Insulin Human Lispro (Insulin Lispro 100 Unit/Ml 3ml Vial) 0 unit SUBCUT ACHS REINA; Protocol Magnesium Oxide (Magnesium Oxide 400 Mg Tablet) 400 mg PO BID [facility] Naloxone HCl (Naloxone 0.4 Mg/Ml Vial) 0.2 mg IV Q2MIN PRN PRN Reason: Opiate Reversal Non-Form: Ivabradine (5 Mg Tablet) 5 mg PO BID [facility] Non-Form: Entresto ( Sacubitril-Valsartan 24-26 Mg Tablet) 1 tab PO BID [facility] Oxycodone HCl (Oxycodone Ir 5 Mg Tablet) 5 mg PO Q6H PRN PRN Reason: pain Pantoprazole Sodium (Pantoprazole 40 Mg Vial) 40 mg IV BID [facility] Tamsulosin HCl (Tamsulosin 0.4 Mg Capsule) 0.4 mg PO DAILY [facility] Discontinued Medications Sodium Chloride (Normal Saline 0.9%) 1,000 mls @ 1,000 mls/hr IV BOLUS ONE Stop: 02/25/23 20:40 Last Infusion: 02/25/23 22:43 Dose: 0 mls/hr Documented By: Admin: 02/25/23 19:58 Dose: 1,000 mls/hr Documented By: KALEY Ondansetron HCl (Ondansetron 4 Mg/2 Ml Inj) 4 mg IV NOW PRN PRN Reason: Nausea And Vomiting Last Admin: 02/25/23 20:31 Dose: 4 mg Documented By: SIMEON Pantoprazole Sodium (Pantoprazole 40 Mg Vial) 40 mg IV NOW ONE Stop: 02/25/23 21:31 Last Admin: 02/25/23 21:41 Dose: 40 mg Documented By: SIMEON Vital Signs Vital signs: Vital Signs - 8 hr 02/25/23 18:39 02/25/23 18:40 02/25/23 18:40 Pulse Rate 77 76 Respiratory Rate 18 Blood Pressure 133/67 Pulse Oximetry 97 99 Oxygen Delivery Method Room Air 02/25/23 19:00 02/25/23 19:00 02/25/23 19:30 Pulse Rate 85 Respiratory Rate Blood Pressure 140/76 135/66 Pulse Oximetry 100 Oxygen Delivery Method 02/25/23 19:30 02/25/23 20:00 02/25/23 20:01 Pulse Rate 78 69 72 Respiratory Rate 17 Blood Pressure Pulse Oximetry 98 98 98 Oxygen Delivery Method Room Air 02/25/23 20:01 02/25/23 20:30 02/25/23 20:30 Pulse Rate 77 Respiratory Rate Blood Pressure 135/66 146/75 H Pulse Oximetry 99 Oxygen Delivery Method Room Air 02/25/23 20:47 02/25/23 20:47 02/25/23 21:00 Pulse Rate 80 Respiratory Rate Blood Pressure 166/74 H 127/59 L Pulse Oximetry 97 Oxygen Delivery Method 02/25/23 21:00 Pulse Rate 75 Respiratory Rate Blood Pressure Pulse Oximetry 96 Oxygen Delivery Method Medical Decision Making Lab Data Lab results reviewed: Yes I reviewed the patient's lab results. 02/25/23 20:59 02/25/23 15:08 Labs: Lab Results 02/25/23 02/25/23 02/25/23 Range/Units 15:08 15:08 20:00 WBC 7.7 (4.5-11.0) X10^3/uL RBC 3.93 L (4.5-5.9) X10^6/uL Hgb 11.9 L (13.5-17.5) g/dL Hct 34.3 L (41-53) % MCV 87.2 (80-100) fL MCH 30.3 (26-34) PG MCHC 34.7 (30-36) % RDW 18.7 H (11.6-14.8) % Plt Count 164 (150-400) X10^3/uL Neut % (Auto) 69.4 (50-75) % Lymph % (Auto) 19.1 L (25-40) % [place] % (Auto) 10.8 (3-14) % Eos % (Auto) 0.5 L (2-4) % Baso % (Auto) 0.2 (0-2) % Neut # (Auto) 5300 (0940-8811) /uL Lymph # (Auto) 1500 (5712-9683) /uL [place] # (Auto) 800 (0-900) /uL Eos # (Auto) 0 (0-450) /uL Baso # (Auto) 0 (0-100) /uL Sodium 131 L (137-145) mmol/L Potassium 3.4 (3.4-5.1) mmol/L Chloride 100 (98-107) mmol/L Carbon Dioxide 21 L (22-32) mmol/L BUN 35 H (9-20) mg/dL Creatinine 0.85 (0.66-1.25) mg/dL Estimated GFR > 60 (>60) mL/min BUN/Creatinine Ratio 41.2 H (6-22) Glucose 188 H (80-110) mg/dL Calcium 8.7 (8.4-10.2) mg/dL Total Bilirubin 0.9 (0.2-1.3) mg/dL AST 24 (17-59) IU/L ALT 31 (<50) IU/L Alkaline Phosphatase 83 (38-126) U/L Total Creatine Kinase 88 (55-170) U/L CK-MB (CK-2) TNP CK-MB (CK-2) Rel Index TNP Troponin I < 0.012 (0.01-0.034) ng/mL Total Protein 6.6 (6.3-8.2) g/dL Albumin 3.8 (3.5-5.0) g/dL Globulin 2.8 (1.7-4.1) g/dL Albumin/Globulin Ratio 1.4 (1.0-2.8) Lipase 373 H (23-300) U/L Urine Color Urine Appearance Urine pH (4.5-8.0) Ur Specific [place] (1.000-1.035) Urine Protein (Negative) Urine Glucose (UA) (Negative) g/dL Urine Ketones (NEGATIVE) Urine Occult Blood (Negative) Urine Nitrate (Negative) Urine Bilirubin (NEGATIVE) Urine Urobilinogen (0.2) E.U./dL Ur Leukocyte Esterase (NEGATIVE) Urine RBC (0-5/HPF) Urine WBC (0-5/HPF) Urine Bacteria (None) Ur Culture Indicated? Ethyl Alcohol < 10 ( - 10) mg/dL 02/25/23 02/25/23 Range/Units 20:45 20:59 WBC (4.5-11.0) X10^3/uL RBC (4.5-5.9) X10^6/uL Hgb 11.3 L (13.5-17.5) g/dL Hct 32.2 L (41-53) % MCV (80-100) fL MCH (26-34) PG MCHC (30-36) % RDW (11.6-14.8) % Plt Count (150-400) X10^3/uL Neut % (Auto) (50-75) % Lymph % (Auto) (25-40) % [place] % (Auto) (3-14) % Eos % (Auto) (2-4) % Baso % (Auto) (0-2) % Neut # (Auto) (6824-1892) /uL Lymph # (Auto) (7636-0325) /uL [place] # (Auto) (0-900) /uL Eos # (Auto) (0-450) /uL Baso # (Auto) (0-100) /uL Sodium (137-145) mmol/L Potassium (3.4-5.1) mmol/L Chloride (98-107) mmol/L Carbon Dioxide (22-32) mmol/L BUN (9-20) mg/dL Creatinine (0.66-1.25) mg/dL Estimated GFR (>60) mL/min BUN/Creatinine Ratio (6-22) Glucose (80-110) mg/dL Calcium (8.4-10.2) mg/dL Total Bilirubin (0.2-1.3) mg/dL AST (17-59) IU/L ALT (<50) IU/L Alkaline Phosphatase (38-126) U/L Total Creatine Kinase (55-170) U/L CK-MB (CK-2) CK-MB (CK-2) Rel Index Troponin I (0.01-0.034) ng/mL Total Protein (6.3-8.2) g/dL Albumin (3.5-5.0) g/dL Globulin (1.7-4.1) g/dL Albumin/Globulin Ratio (1.0-2.8) Lipase (23-300) U/L Urine Color Yellow Urine Appearance Clear Urine pH 6.0 (4.5-8.0) Ur Specific [place] 1.020 (1.000-1.035) Urine Protein Negative (Negative) Urine Glucose (UA) Negative (Negative) g/dL Urine Ketones 1+ H (NEGATIVE) Urine Occult Blood Negative (Negative) Urine Nitrate Negative (Negative) Urine Bilirubin Negative (NEGATIVE) Urine Urobilinogen 1.0 (0.2) E.U./dL Ur Leukocyte Esterase Negative (NEGATIVE) Urine RBC None seen (0-5/HPF) Urine WBC None seen (0-5/HPF) Urine Bacteria None seen (None) Ur Culture Indicated? Cult not indicated Ethyl Alcohol ( - 10) mg/dL Imaging Data Chest x-ray: Radiologist's Impression: PROCEDURE:? XR CHEST 1V ? INDICATIONS:? SOB ? TECHNIQUE:? One view of the chest was acquired.? ? COMPARISON:? [facility], CR, XR CHEST 1V, 01/26/2023, 13:07. ? FINDINGS:? ? Surgical changes and devices:? There is a cardiac pacemaker with a single lead in expected position.? ? Lungs and pleura:? Lungs are clear.? No pleural effusions or pneumothorax.? ? Mediastinum:? Mediastinal contours appear normal.? Heart size is normal.? ? Bones and chest wall:? No suspicious bony lesions.? Overlying soft tissues appear unremarkable.? ? IMPRESSION:? No acute cardiopulmonary disease. ECG Data Attestation: I personally reviewed and interpreted this ECG as follows: Interpretation: Sinus rhythm Ventricular rate is 79 Occasional PVC Left axis deviation QRS [address] T wave changes MDM Narrative Medical decision making narrative: Patient does not appear to have an obvious infectious source for his symptoms. He is not in DKA. Low suspicion for ACS. I have low suspicion for CVA as he does not have focal neurologic deficit. Patient has been having dark-colored stools over the past couple days and his H&H today has dropped from approximately 1 month ago. A repeat H&H is somewhat lower than initial. Given his presentation, his lack of ability to stand, his decreasing H&H in the concern for GI bleed patient does require admission to the hospital. I did discuss the case with Dr. Guzman who is the patient's primary doctor who will admit for further evaluation and treatment. I also discussed the case with Dr. Wei on-call for General surgery who states he be happy to see the patient after admission. Discharge Plan Departure Patient Disposition: Admitted as Observation Clinical Impression: Fatigue, GI bleeding Admit Date/Time: 02/25/23 21:29 Admit Provider: Salvador Guzman
--- NOTE | 2023-02-25 19:00 | DI.RAD.S_ITS ---
PROCEDURE: XR CHEST 1V INDICATIONS: SOB TECHNIQUE: One view of the chest was acquired. COMPARISON: [facility], CR, XR CHEST 1V, 01/26/2023, 13:07. FINDINGS: Surgical changes and devices: There is a cardiac pacemaker with a single lead in expected position. Lungs and pleura: Lungs are clear. No pleural effusions or pneumothorax. Mediastinum: Mediastinal contours appear normal. Heart size is normal. Bones and chest wall: No suspicious bony lesions. Overlying soft tissues appear unremarkable. IMPRESSION: No acute cardiopulmonary disease. Dictated by: Nicole Parada M.D. on 02/25/2023 at 20:07 Approved by: Nicole Parada M.D. on 02/25/2023 at 20:07
[2023-02-25] MEDS: SODIUM CHLORIDE 0.9% 1,000 ML 1000 ML IV (19:58)
[2023-02-25] MEDS: ONDANSETRON 4 MG/2 ML INJ IV (20:31)
[2023-02-25 20:38] LABS: Creatine Kinase 88 U/L (55-170); Ethanol (ETOH) < 10 mg/dL
[2023-02-25 20:51] LABS: Troponin I < 0.012 ng/mL (0.01-0.034)
[2023-02-25 21:09] LABS: Hematocrit 32.2 % (41-53); Hemoglobin 11.3 g/dL (13.5-17.5)
[2023-02-25 21:19] LABS: Appearance Urine UA CLEAR; Bilirubin Urine UA NEGATIVE (NEGATIVE); Color Urine UA YELLOW; Glucose Urine UA NEGATIVE (Negative); Ketones Urine UA 1+ (NEGATIVE); Leukocyte Esterase Urine UA NEGATIVE (NEGATIVE); Nitrite Urine UA NEGATIVE (Negative); Occult Blood Urine UA NEGATIVE (Negative); Protein Urine UA NEGATIVE (Negative)
[2023-02-25 21:38] LABS: Bacteria Urine None Seen; Culture Indicated Urine Cult Not Indicated; RBC Urine None Seen (0-5/HPF); WBC Urine None Seen (0-5/HPF)
[2023-02-25] MEDS: PANTOPRAZOLE 40 MG VIAL IV (21:41)
[2023-02-25 22:07] LABS: COVID19 -Nasal RAPID Negative (Negative)
[2023-02-25] MEDS: LACTATED RINGERS 1,000 ML 100 ML IV (23:56)
[2023-02-26] VITALS (10 sets, daily range): BP systolic 116–130; BP diastolic 50–70; PULSE 60–68; RESP 14–19; TEMP 36.3–36.6; O2SAT 94–99
--- NOTE | 2023-02-26 06:33 | PM.HP.1 ---
History of Present Illness History of Present Illness Date Patient Seen: 02/26/23 Time Patient Seen: 06:33 Chief complaint: weakness,P/t is Diabetic had no meds in 3 days Narrative: 72-year-old male, well known to me, presented to the emergency department with several days of weakness to the point where he was unable to get up and take his medications including his insulin, been unable to get up off the bed and in fact has been completely incontinent of urine as he is unable to get to the bathroom because of his global weakness. Patient reports this began with hiccups that have been unrelenting since that time. No other respiratory symptoms does not feel short of breath not coughing. He really has not had anything to eat for at least 2 days he is thinking maybe closer to 4 he is kind of lost track of time. No fever chills. No orthopnea no PND no palpitations No neurologic symptoms per se (been recently admitted a couple of times with neurologic symptoms/TIA). Denies any real shortness of breath abdominal pain chest pain palpitations. He has implanted defibrillator has not had any discharges. Does report some loose stools that been very dark if not black in color. Patient also reports dark-colored emesis ER evaluation was mostly unremarkable. Was minimally anemic with the slowly drifting down hemoglobin/hematocrit. Apparently guaiac positive per ER physician Admitted for possible slow GI bleed Patient was admitted in May of 2022 with evidence of a more active GI bleed. At that time he underwent upper and lower endoscopy that failed to reveal an etiology for his bleed although evidence of blood was seen above the cecum so felt to be an upper GI source of bleeding. His count stabilized and he was subsequently not refer to gastroenterology for further evaluation (given the presentation with his neurologic symptoms etcetera, the GI issues were felt to be less critical). He recently has had his neurologic events as above and has been started on dual anti-platelet therapy with low-dose aspirin and Plavix which may be an etiology to this ongoing bleed Patient also dealing with chronic back pain issues was to have spinal surgery but that has been delayed because of his neurologic events until he can see Neurology which is currently scheduled for March 13 [facility] Medical History Acute GI bleeding Automatic implantable cardiac defibrillator in situ (~07/2019) Cerebrovascular accident Degeneration of intervertebral disc of cervical region Diabetic peripheral neuropathy (07/25/15) Essential hypertension FPC current use of insulin (08/20/16) Mixed hyperlipidemia Nonischemic cardiomyopathy (09/09/16) Type 2 diabetes mellitus with hyperglycemia, with long-term current use of insulin Type 2 diabetes mellitus without complication Social History marital status: unmarried,single number of children: 0 household members: none lives independently: Yes caregiver/support person: Yes housing: house pets and animals: Yes education level: other (Bachelor's Degree) occupational status: other (Retired) current occupational exposures/hazards: No 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 travel history: recent leisure activities: music, reading and other ([employer] Smoking Status: Never smoker quit status: quit date established second hand exposure: No alcohol intake: current substance use type: does not use Meds Home Medications and Allergies Home Medications Medication Instructions Recorded Confirmed Type nortriptyline 50 mg capsule See Rx Instructions PO HS #180 caps 04/30/21 01/30/23 Rx aspirin 325 mg tablet,delayed 325 mg PO DAILY #250 tabs 07/06/21 01/30/23 Rx release Glucose: Test Strips #500 ea 08/27/21 01/30/23 Rx blood-glucose meter (Blood Glucose #1 ea 08/27/21 01/30/23 Rx Monitoring kit) clopidogrel 75 mg tablet 75 mg PO DAILY #90 tabs 01/02/22 01/30/23 Rx sacubitril 24 mg-valsartan 26 mg 1 tab PO BID 03/19/22 01/30/23 History tablet (Entresto) acetaminophen 325 mg tablet 650 mg PO Q6HR PRN Fever/Mild Pain 05/18/22 01/30/23 Rx (1-3) #60 tabs flash glucose scanning reader #1 ea 06/20/22 01/30/23 Rx (FreeStyle Tara 14 Day [place]) flash glucose sensor (FreeStyle #1 ea 06/20/22 01/30/23 Rx Tara 14 Day Sensor kit) blood-glucose meter,continuous #1 ea 06/26/22 01/30/23 Rx (Dexcom G6 [employer]) blood-glucose sensor (Dexcom G6 #3 ea 06/26/22 01/30/23 Rx Sensor device) blood-glucose transmitter (Dexcom #1 ea 06/26/22 01/30/23 Rx G6 Transmitter device) gabapentin 300 mg capsule 600 mg PO QPM #180 caps 09/17/22 01/30/23 Rx pantoprazole 40 mg tablet,delayed 40 mg PO DAILY 09/17/22 01/30/23 History release trazodone 50 mg tablet 50 mg PO BEDTIME 09/17/22 01/30/23 History tamsulosin 0.4 mg capsule 0.4 mg PO DAILY #90 caps 10/14/22 01/30/23 Rx carvedilol 25 mg tablet 25 mg PO BID #180 tabs 10/16/22 01/30/23 Rx magnesium oxide 400 mg (241.3 mg 400 mg PO BID #180 tabs 10/16/22 01/30/23 Rx magnesium) tablet insulin NPH-regular 70-30 U-100 70 unit (0.7 mL) SUBCUT BID #200 mL 11/11/22 01/30/23 Rx insulin 100 unit/mL subcutaneous pen (Humulin 70/30 U-100 KwikPen) amlodipine 5 mg tablet 5 mg PO DAILY #90 tabs 12/19/22 01/30/23 Rx ivabradine 5 mg tablet 5 mg PO BID #180 tabs 12/20/22 01/30/23 Rx atorvastatin 20 mg tablet 20 mg PO DAILY #90 tabs 01/03/23 01/30/23 Rx metformin 500 mg tablet,extended 1,000 mg PO BID #360 tabs 01/06/23 01/30/23 Rx release 24 hr oxycodone 5 mg tablet 5 mg PO Q6H PRN pain #60 tabs 02/09/23 Rx Allergies Allergy/AdvReac Type Severity Reaction Status Date / Time No Known Drug Allergies Allergy Verified 02/25/23 18:42 Review of Systems Review of Systems ROS: Yes All systems reviewed with the patient and are negative except as otherwise documented Exam Vital Signs (past 8 hours): - 02/25/23 23:06 02/26/23 04:16 02/25/23 22:37 Temperature 97.1 F L 97.5 F L Pulse Rate 80 64 Respiratory Rate 20 19 Blood Pressure 127/61 116/50 L Pulse Oximetry 98 95 Oxygen Delivery Method Room Air Oxygen Flow Rate 0 0 Oxygen Delivery Method Room Air Oxygen Flow Rate 0 Narrative Exam Narrative: Older than stated age appearing male who appears somewhat lethargic but in no obvious distress HEENT-unremarkable Lungs-clear good breath sounds Heart-regular rate and rhythm Abdomen-positive bowel tones although rare soft nontender nondistended no guarding or rebound no hepatosplenomegaly Extremities-no cyanosis clubbing or edema Neuro-alert orient x3, no focal findings, muscle strength 5/5 upper and lower extremities gait not tested, no abnormal reflexes noted Objective Labs 02/26/23 07:18 02/26/23 07:18 Labs: Laboratory Results - last 24 hr 02/25/23 02/25/23 02/25/23 15:08 15:08 20:00 WBC 7.7 RBC 3.93 L Hgb 11.9 L Hct 34.3 L MCV 87.2 MCH 30.3 MCHC 34.7 RDW 18.7 H Plt Count 164 Neut % (Auto) 69.4 Lymph % (Auto) 19.1 L Mason % (Auto) 10.8 Eos % (Auto) 0.5 L Baso % (Auto) 0.2 Neut # (Auto) 5300 Lymph # (Auto) 1500 Mason # (Auto) 800 Eos # (Auto) 0 Baso # (Auto) 0 Sodium 131 L Potassium 3.4 Chloride 100 Carbon Dioxide 21 L BUN 35 H Creatinine 0.85 Estimated GFR > 60 BUN/Creatinine Ratio 41.2 H Glucose 188 H Calcium 8.7 Total Bilirubin 0.9 AST 24 ALT 31 Alkaline Phosphatase 83 Total Creatine Kinase 88 CK-MB (CK-2) TNP CK-MB (CK-2) Rel Index TNP Troponin I < 0.012 Total Protein 6.6 Albumin 3.8 Globulin 2.8 Albumin/Globulin Ratio 1.4 Lipase 373 H Urine Color Urine Appearance Urine pH Ur Specific [place] [employer] Urine Protein Urine Glucose (UA) Urine Ketones Urine Occult Blood Urine Nitrate Urine Bilirubin Urine Urobilinogen Ur Leukocyte Esterase Urine RBC Urine WBC Urine Bacteria Ur Culture Indicated? Ethyl Alcohol < 10 SARS-CoV-2 (PCR) 02/25/23 02/25/23 02/25/23 20:45 20:59 21:50 WBC RBC Hgb 11.3 L Hct 32.2 L MCV MCH MCHC RDW Plt Count Neut % (Auto) Lymph % (Auto) Mason % (Auto) Eos % (Auto) Baso % (Auto) Neut # (Auto) Lymph # (Auto) Mason # (Auto) Eos # (Auto) Baso # (Auto) Sodium Potassium Chloride Carbon Dioxide BUN Creatinine Estimated GFR BUN/Creatinine Ratio Glucose Calcium Total Bilirubin AST ALT Alkaline Phosphatase Total Creatine Kinase CK-MB (CK-2) CK-MB (CK-2) Rel Index Troponin I Total Protein Albumin Globulin Albumin/Globulin Ratio Lipase Urine Color Yellow Urine Appearance Clear Urine pH 6.0 Ur Specific [place] 1.020 Urine Protein Negative Urine Glucose (UA) Negative Urine Ketones 1+ H Urine Occult Blood Negative Urine Nitrate Negative Urine Bilirubin Negative Urine Urobilinogen 1.0 Ur Leukocyte Esterase Negative Urine RBC None seen Urine WBC None seen Urine Bacteria None seen Ur Culture Indicated? Cult not indicated Ethyl Alcohol SARS-CoV-2 (PCR) Negative Assessment & Plan Assessment & Plan narrative: 1. GI bleed-based on above evidence seems likely patient has a slow GI bleed ongoing. Perhaps small-bowel source given his previous evidence of more active bleeding and yet failure to find a source. However patient also reporting some coffee-ground like emesis and has been somewhat recently started on dual anti-platelet therapy which included aspirin so a gastric source would seemingly be a bit more likely in my opinion. At this point his blood counts are not low enough for me to consider blood transfusion and frankly not low enough for me to think there responsible for his ongoing generalized weakness etcetera. Whether not he needs repeat endoscopic evaluation does not exactly clear. I guess with the reported coffee-ground emesis and the recent addition of aspirin to his regimen an upper endoscopy to evaluate for the gastric source of bleeding would make sense. I do not believe he needs additional colonoscopy at this time given his negative colonoscopy in May. At some point if we do not find a source I think an evaluation for a small-bowel source of bleeding would be entirely appropriate, done via GI consultation. For now I will of course hold his Plavix, hold his aspirin, continue monitor his blood counts and transfuse if hemoglobin/hematocrit drops low level where hematocrit is 27-28 % or so given his known cardiac disease. 2. Diabetes-patient normally on high dose insulin therapy with 70/30 insulin. Not had much in the way of oral intake given his profound weakness and he is not taking his usual medications. For now will hold off on long-acting insulin and use coverage insulin alone. Hold his oral diabetic medications as well. 3. Neuro-patient with recent neurologic symptoms consistent entirely with a TIA (primarily slurred speech and other cranial nerve findings) but no evidence of any significant vascular disease or actual CVA noted on imaging. However we are unable to obtain an MRI because of his implanted device. Does have an upcoming appointment with Neurology in early March. At this point however given the active bleeding as noted above he will need to have his dual antiplatelet therapy discontinued. Continue to control blood pressure and other factors as able to minimize his risk of future events. Continue with lipid lowering therapy also in effort to lower risk 4. Cardiac-patient with known significant nonischemic cardiomyopathy, status post implantable defibrillator in 2019. No recent evidence of active cardiac disease. Patient is not really giving active symptoms a cardiac source or nature such as orthopnea PND etcetera. At this point continue patient's usual medications as his vital signs are entirely stable etcetera 5. Weakness-unclear as to the etiology of patient's ongoing weakness. Certainly would not expect someone to be bed-bound based on a hemoglobin/hematocrit of 11/32 which is the lowest number we seen at this point. Patient does not have any focal neurologic findings to suggest recurrent CVA etcetera. Evidence of an infectious etiology such as UTI or pneumonia. Will have Physical and Occupational therapy see him for evaluation and initiate care, and he may well require placement in some sort of longterm facility 6. Disposition-patient's home setting is apparently quite chaotic and unorganized which is chronic for him. He has very little in the way of support or actual caregivers. Whether not he is able to take medication appropriately, whether not he has access to appropriate nutrition, etcetera is entirely unclear. He does appear unkempt and disorganized much of the time, however this again is chronic. He may well benefit from evaluation for placement in assisted living if he does not require longterm rehabilitation as above. I have asked care management team to assess his status and provide assistance in this fashion as well 7. VTE prophylaxis-given the evidence of GI bleed above patient not appropriate for any sort of anticoagulation. SCDs will be employed. 8. Code status-patient be entirely appropriate for full code status which is ordered. COVID-19 COVID-19 status: Negative Result date/Date tested (Pos, Neg/Pending): 02/25/23 Quality VTE Deep Vein Thrombosis/Pulmonary Embolism Present on Admission: No
--- NOTE | 2023-02-26 06:54 | PC.NURSE ---
Admit/NOC Shift Note- Patient arrived to room via wheelchair from ER at 2345. Patient alert and oriented and able to make needs known to staff. admit questions done, nedications reviewed as much as possible, physical assessment done, and skin check completed. patient oriented to bed and bed controls, room, lights, phone, menu,and call wilkerson/tv remote. safetuy ,easures in place. bed alarm activated. patient agrees to call for assistance. call wilkerson and phone within reach. will continue to monitor.
[2023-02-26] MEDS: LACTATED RINGERS 1,000 ML 100 ML IV ×2 (06:58→16:03)
[2023-02-26 07:44] LABS: Add Manual Diff / Slide Review NO; Basophils Absolute Auto 0 /uL (0-100); Basophils Percent Auto 0.2 % (0-2); Eosinophils Absolute Auto 0 /uL (0-450); Eosinophils Percent Auto 0.7 % (2-4); Hematocrit 28.2 % (41-53); Hemoglobin 9.9 g/dL (13.5-17.5); Lymphocytes Absolute Auto 1300 /uL (1100-4500); Lymphocytes Percent Auto 23.7 % (25-40); Mean Corpuscular HGB Conc 35.2 % (30-36); Mean Corpuscular Hemoglobin 30.9 PG (26-34); Mean Corpuscular Volume 87.9 fL (80-100); Monocytes Absolute Auto 600 /uL (0-900); Monocytes Percent Auto 10.9 % (3-14); Neutrophils Absolute Auto 3600 /uL (1500-7000); Neutrophils Percent Auto 64.5 % (50-75); Platelet Count 132 X10^3/uL (150-400); Red Blood Cell Count 3.21 X10^6/uL (4.5-5.9); Red Cell Distribution Width 18.5 % (11.6-14.8); White Blood Cell Count 5.6 X10^3/uL (4.5-11.0)
[2023-02-26 07:54] LABS: BUN Creatinine Ratio 32.4 (6-22); Blood Urea Nitrogen 23 mg/dL (9-20); Calcium 8.1 mg/dL (8.4-10.2); Carbon Dioxide 21 mmol/L (22-32); Chloride 104 mmol/L (98-107); Estimated Glomerular Filt Rate > 60 mL/min (>60); Glucose 127 mg/dL (80-110); HEMOLYSIS < 15 (0-50); Potassium 3.4 mmol/L (3.4-5.1); Sodium 133 mmol/L (137-145)
--- NOTE | 2023-02-26 08:29 | PM.CALLCOV.1 ---
Call Coverage Note Note Date of Patient Contact: 02/26/23 Time of Patient Contact: 08:29 Narrative of Care Provided: 72-year-old man admitted with a GI bleed. Coffee-ground emesis. Hemodynamically stable on aspirin and Plavix. Hematocrit 28. Schedule for EGD tomorrow NPO after midnight
--- NOTE | 2023-02-26 08:30 | DI.CT.S_ITS ---
PROCEDURE: CT ANGIO CHEST PE PROTOCOL INDICATIONS: r/o PE sob TECHNIQUE: After the administration of intravenous contrast, 2 mm thick sections acquired from the pulmonary apices to the posterior costophrenic angles. 3-dimensional maximum intensity projection (MIP) coronal and sagittal reformats were then acquired through the thorax. For radiation dose reduction, the following was used: automated exposure control, adjustment of mA and/or kV according to patient size. COMPARISON: [facility], CT, CT ANGIO CHEST PE PROTOCOL, 07/30/2021, 1:03. FINDINGS: Image quality: Good Lungs and pleura: Scattered scarring and atelectasis. No pleural effusions. Mild bronchial wall thickening. Mediastinum, heart, and esophagus: No acute pulmonary embolism. There are coronary calcifications, including the left main. Cardiomegaly. Left chest wall pulse generator with electrode leads in place. No pathologic adenopathy by size criteria. There is moderate esophageal wall thickening, fluid distension, and possible hiatal hernia. Chest wall and thyroid: There is gynecomastia. Upper abdomen: No gross abnormality on these arterial phase images. Borderline splenomegaly at about 12 cm. Bones: No acute or suspicious osseous finding. IMPRESSION: No acute pulmonary embolism identified. No significant airspace disease. Mild bronchial wall thickening, likely bronchitis, with associated atelectasis and scarring downstream. As before, there might be a small hiatal hernia and moderate esophageal wall thickening with fluid distension, correlate with symptoms and if necessary, endoscopy. Dictated by: Miguelito Liriano M.D. on 02/26/2023 at 8:48 Approved by: Miguelito Liriano M.D. on 02/26/2023 at 8:54
[2023-02-26] MEDS: TAMSULOSIN 0.4 MG CAPSULE PO (08:49)
[2023-02-26] MEDS: PANTOPRAZOLE 40 MG VIAL IV ×2 (08:49→20:22)
[2023-02-26] MEDS: AMLODIPINE 5 MG TABLET PO (08:50)
[2023-02-26] MEDS: carvediloL 12.5 MG TABLET 25 MG PO (08:50)
[2023-02-26] MEDS: ATORVASTATIN 20 MG TABLET PO (08:50)
[2023-02-26] MEDS: MAGNESIUM OXIDE 400 MG TABLET PO ×2 (08:50→20:21)
[2023-02-26] MEDS: POTASSIUM CHLORIDE 20 MEQ TAB 40 MEQ PO (09:47)
--- NOTE | 2023-02-26 11:40 | OT.IP.EVAL ---
Past Medical History (Last Reviewed 02/26/23 @ 06:36 by Salvador Guzman MD) Acute GI bleeding Automatic implantable cardiac defibrillator in situ (~07/2019) Cerebrovascular accident Degeneration of intervertebral disc of cervical region Diabetic peripheral neuropathy (07/25/15) Essential hypertension [facility] current use of insulin (08/20/16) Mixed hyperlipidemia Nonischemic cardiomyopathy (09/09/16) Type 2 diabetes mellitus with hyperglycemia, with long-term current use of insulin Type 2 diabetes mellitus without complication Occupational Therapy Inpatient Evaluation/Re-Eval M1 PT/OT-IP Prior Functional Status Start: 02/26/23 12:00 Freq: NEEDED Status: Active Protocol: Document 02/26/23 12:00 ES (Rec: 02/26/23 12:18 ES [id number]) Medical Review Prior Functional Status Medical History Reviewed Yes Communication WFL Mobility and Gait Indep without AD indoors, indep with cane outdoors. Activities of Daily Living and IADL's Indep Social History Household Members none Living Arrangements House Number of Floors (Floors) Two Floors Number of Stairs To Enter/Railing? 0 Home Equipment Straight Cane Employment Status Retired Additional Social History Comment Has full flight of stairs up to bedroom/bathroom. Has supportive neighbors who are available to assist. Has been driving but recently misplaced his keys. M2 OT-IP Current Condition Start: 02/26/23 14:07 Freq: Status: Active Protocol: Document 02/26/23 10:56 [facility] (Rec: 02/26/23 14:46 [facility] [id number]) Occupational Therapy Current Condition Current Condition Evaluation Date 02/26/23 Treatment Diagnosis GI bleed , weakness. M3 OT- IP Subjective and Pain Start: 02/26/23 14:07 Freq: Status: Active Protocol: Document 02/26/23 10:56 [facility] (Rec: 02/26/23 14:46 [facility] [id number]) OT- Subjective Occupational Therapy Visit Type Type Initial Evaluation Visit Start Time 10:56 Visit Stop Time 11:40 Total Visit Minutes 44 Occupational Therapy Visit Comments Patient Comments Pt on trying to walk out of the bathroom on his own when OT came in. Patient/Caregiver Goals TO go home. OT Pain Assessment Pain When Pain Assessed At Rest Pain Present Pain Present Denied Pain M4 OT- IP ADL's Start: 02/26/23 14:07 Freq: Status: Active Protocol: Document 02/26/23 10:56 [facility] (Rec: 02/26/23 14:46 [facility] [id number]) OT [id number] Comments OT Self-Feeding Comments Not at meal time. OT ADL-Grooming General Evaluation Grooming Ability Standby Assistance Areas Needing Assistance Retrieving/Set-up of Grooming Items Comments OT Grooming Comments Pt able to brush his teeth, wash his face and brush his hair while standing the sink with the FWW. OT ADL-Oral Care General Eval Oral Care Ability Independent OT ADL-Dressing General Eval Lower Body Dressing Ability Contact Guard Assistance Comments OT Dressing Comments Pt assist to help get the brief over his feet and up over his hips. OT ADL-Toileting Comments OT Toileting Comments Pt already used the toilet when OT came in. OT ADL-Bathing Comments OT Bathing Comments Pt too tired to perform at this time. M5 OT- IP IADL's Start: 02/26/23 14:07 Freq: Status: Active Protocol: Document 02/26/23 10:56 [facility] (Rec: 02/26/23 14:46 [facility] [id number]) OT-Instrumental Activities of Daily Living Home Safety Awareness Home Safety Comments Pt a very tired and forgetful and states has had more difficulty with his short term memory since his stroke like symptoms on his admit from . Medication Management Medication Management Comments Pt states his neighbor assist with his medications. Money Management Money Management Comments Pt states able to do on his own. Meal Preparation Meal Preparation Comments Pt states mainly just microwaves meals or eats at his neighbor house. Asphalt Patcher Asphalt Patcher Comments Pt states does not really do much at home. Driving Driving Concerns Identified Regarding Safety M6 OT- IP Functional Cognition Start: 02/26/23 14:07 Freq: Status: Active Protocol: Document 02/26/23 10:56 [facility] (Rec: 02/26/23 14:46 [facility] [id number]) Cognitive Factors Limiting Selfcare Function Cognitive Ability Level of Alertness Alert Patient Orientation Name,Place,Situation Attention Span Ability Capable of Focused Attention, Capable of Sustained Attention Ability to Follow Commands Able to Follow One Step Commands Memory Description Short Term Impaired Cognitive Comments Cognitive Assessment Comments Pt able to follow commands but forgetting to use the FWW at times. Pt very tired and states has not been eating for the past few days. OT- Vision and Hearing OT- Hearing Assessment OT- Hearing Assessment WFL OT- Vision Assessment Vision Assessment Comments Pt's left eye slight delay during scanning. Pt appears to have decreased peripheral vision left greater than right side. M7 OT- IP Mobility and Balance Start: 02/26/23 14:07 Freq: Status: Active Protocol: Document 02/26/23 10:56 [facility] (Rec: 02/26/23 14:46 [facility] [id number]) OT- Bed Mobility Assessment Sit to Supine Sit to Supine Assist Minimal Assistance OT-Transfer Assessment Sit to and From Stand Sit to and from Stand Contact Guard Assistance Transfers Transfer Ability Contact Guard Assistance, Minimal Assistance Technique Transfer Destination Bed,Chair Transfer Technique Stand Step Pivot Devices Transfer Assistive Devices Gait Belt,Straight Cane,Front Wheeled Walker Comments Mobility Comments CGA to stand and DAVID for balance when using the cane and CGA with FWW. Pt tends to lean to the right. OT- Balance Assessment Sitting Balance and Reactions Static Sitting Balance Ability Normal Dynamic Sitting Balance Ability Good Standing Balance and Reactions Static Standing Balance Ability Good Dynamic Standing Balance Ability Fair M8 OT- IP Objective Assessments Start: 02/26/23 14:07 Freq: Status: Active Protocol: Document 02/26/23 10:56 [facility] (Rec: 02/26/23 14:46 [facility] [id number]) OT Gross Range of Motion Upper Extremity Range of Motion ROM Impairments RUE decreased due to rotator cuff issues. Pt was to see outpt PT today. OT- Coordination Assessment Upper Extremity Finger to Nose Test Bilateral UE Impaired Comments Coordination Comments both fingers slightly off L > R M9 OT- IP Assessment and Plan Start: 02/26/23 14:07 Freq: Status: Active Protocol: Document 02/26/23 10:56 [facility] (Rec: 02/26/23 14:46 [facility] [id number]) OT Summary Assessment and Plan Potential Rehabilitation Potential Good Analytic Complexity at Evaluation Moderate Summary OT Impairments Strength,Balance,Functional Cognition,Functional Mobility, Dressing,Toileting,Bathing, Toilet Transfers,Shower Transfers,Activity Tolerance Progress Towards Goals Slow Progress due to Pain,Slow Progress due to Medical Issues,Slow Progress due to Activity Tolerance Assessment Summary Pt MOD complexity and main barriers are steps, decreased activity tolerance, strength, and now needing one person assist for ADL and mobility needs as a little unsteady on his feet. Pt pending progress may benefit from home health. Pt lives alone but has supportive neighbors to assist . Goals Self-Feeding Goal Independent Grooming Goal Independent Dressing Goal Independent Toileting Goal Independent Bathing Goal Independent Toilet Transfer Goal Independent Shower Transfer Goal Independent Days to Meet Goals 10 Frequency of Treatment Frequency Of Treatment Once a Day Treatment Plan OT Treatment Plan ADL Training,Functional Cognition Training,Functional Mobility,Patient/Family Education,Discharge Planning Other Treatment Recommendations and Next shower/slums Treatment Focus Discharge Recommendations OT Discharge Recommendations Home with Assistance,Home Health,Home vs SNF Other Discharge Recommendations pending progress and assistance for needs at home home with home health versus possibly SNF Home Equipment Needs FWW Transportation Needs at Discharge Private Vehicle
[2023-02-26] MEDS: INSULIN LISPRO 100 UNIT/ML 3ML VIAL SUBCUT ×3 (12:14→20:22)
--- NOTE | 2023-02-26 12:18 | PT.IIE ---
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 Activities of Daily Living and IADL's Indep Social History Household Members none Living Arrangements House Number of Floors (Floors) Two Floors Number of Stairs To Enter/Railing? 0 Home Equipment Straight Cane Employment Status Retired Additional Social History Comment Has full flight of stairs up to bedroom/bathroom. Has supportive neighbors who are available to assist. Has been driving but recently misplaced his keys. M2 PT-IP Current Condition Start: 02/26/23 12:00 Freq: NEEDED Status: Active Protocol: Document 02/26/23 12:00 ES (Rec: 02/26/23 12:18 ES [id number]) Physical Therapy Current Condition Current Condition Evaluation Date 02/26/23 Treatment Diagnosis GI bleed, weakness Onset Date 02/25/23 M3 PT-IP Subjective Start: 02/26/23 12:00 Freq: NEEDED Status: Active Protocol: Document 02/26/23 12:00 ES (Rec: 02/26/23 12:18 ES [id number]) Subjective Physical Therapy Visit Type Type Initial Evaluation Visit Start Time 11:13 Visit Stop Time 11:30 Total Visit Minutes 17 Physical Therapy Visit Comments Patient Comments Patient reported still feeling weak and tired. Patient had been working with OT prior to visit. Patient agreeable to work with PT. Therapy Pain Assessment Pain Present Pain Present Denied Pain M4 PT-IP Mobility and Gait Start: 02/26/23 12:00 Freq: NEEDED Status: Active Protocol: Document 02/26/23 12:00 ES (Rec: 02/26/23 12:18 ES [id number]) PT-Bed Mobility Assessment Supine to Sit Supine to Sit Minimal Assistance Sit to Supine Sit to Supine Standby Assistance Scooting Scooting to Edge of Bed Standby Assistance Scooting Up and Down in Bed Standby Assistance PT-Transfer Assessment Sit to and From Stand Sit to and from Stand Standby Assistance,Use of Upper Extremities Equipment Transfer Assistive Device Gait Belt,Front Wheeled Walker Transfers Transfer Destination Chair Transfer Technique Stand Step Pivot Transfer Ability Level of Assist Standby Assistance,Use of Upper Extremities Comments Mobility Comments Cued for hand placement for safety with FWW. Gait Assessment Gait Gait Assistance Required: Contact Guard Assist Distance (Feet) 30 Assistive Devices Assistive Device Gait Belt,Front Wheeled Walker Gait Deviations General Gait Pattern Decreased Stride Length, Decreased Feet Clearance, Flexed Trunk,Lateral Trunk Lean,Wide Based Gait Factors Limiting Gait Function Factors Limiting Gait Function Decreased Strength,Pain,Poor Balance Comments Gait Comments Decreased cintia and velocity noted. Denied increased lightheadedness/dizziness. Ambulated in room only due to soft BP. PT-Balance Assessment Sitting Balance and Reactions Static Sitting Balance Ability Good Dynamic Sitting Balance Ability Good Standing Balance and Reactions Static Standing Balance Ability Good Dynamic Standing Balance Ability Fair Device Used FWW M5 PT-IP Objective Assessments Start: 02/26/23 12:00 Freq: NEEDED Status: Active Protocol: Document 02/26/23 12:00 ES (Rec: 02/26/23 12:18 ES [id number]) Orientation Orientation/Cognition Level of Alertness Alert Language Function Ability No Deficits Noted Safety Awareness Understands Safety Issues Memory Description No Deficits Noted Gross Range of Motion Upper Extremity ROM Assessment Within Functional Limits Lower Extremity ROM Assessment Within Functional Limits Strength Lower Extremity Strength Assessment Within Functional Limits Coordination Assessment Gross Coordination Gross Coordination WNL M6 PT-IP Treatment Start: 02/26/23 12:00 Freq: NEEDED Status: Active Protocol: Document 02/26/23 12:00 ES (Rec: 02/26/23 12:18 ES [id number]) Physical Therapy Treatment Education Education Provided Safety M7 PT-IP Assessment and Plan Start: 02/26/23 12:00 Freq: NEEDED Status: Active Protocol: Document 02/26/23 12:00 ES (Rec: 02/26/23 12:18 ES [id number]) PT Summary Assessment and Plan Potential Rehabilitation Potential Good Status of Condition at Evaluation Evolving Summary Impairments Strength,Balance,Bed Mobility, Transfers,Gait,Activity Tolerance Assessment Summary Patient is a 72 year old male who presents with impaired functional mobility due to the above problems. His BP was low with standing though asymptomatic. He was able to transfer and ambulate using FWW with CGA; according to OT patient was unsteady with cane . Patient was returned to bed at end of tx per nursing request. Patient appears to be below his baseline level of function and would benefit from further skilled PT to increase safety and independence with mobility prior to d/c home. Goals Bed Mobility Goal Independent Transfer Goal Independent,Cane,Front Wheeled Walker Gait Goal Independent,Cane,Front Wheel Walker Gait Distance 300 Other Goals Patient will be able to ascend /descend full flight of stairs with LRAD independently. Days to Meet Goals 5 Frequency of Treatment Frequency Of Treatment Once a Day Treatment Plan Physical Therapy Treatment Plan Bed Mobility Training,Transfer Training,Gait Training, Therapeutic Exercise,Balance Retraining,Discharge Planning Other Recommendations and Next Treatment Progress strength, transfers, Focus gait, and stairs with FWW progressing cane if appropriate. Recommendations To Nursing Amount of Assist Needed 1 Person Assist Discharge Recommendations PT Discharge Recommendations Home Health Equipment Needed for Home Before Possibly FWW Discharge Transportation Needs at Discharge Private Vehicle
--- NOTE | 2023-02-26 12:21 | CM.DANOTE ---
Addendum entered by Yari Kapadia R.N. 02/26/23 15:46: Checked in with patient regarding home health, and the services they provide. He does not feel that he needs it. Let him know that DC Supervisor [employer] can check in again with him upon discharge to see if he changes his mind. Addendum entered by Yari Kapadia R.N. 02/26/23 14:57: Spoke to physical therapist, Mitzi, who is currently recommending home health. Was going to discuss with patient, but was on the phone. Patient would benefit with nursing, P.T, and O.T, as long as he is homebound, can add SHORE WORKING SUPERVISOR for any type of in home resources needed, such as meals on wheels, or if patient eventually needs to think about long term care social worker care. Original Note: DCP: Case received, EMR reviewed and met with patient. Introduced self and role. Was able to obtain information regarding patient's baseline activity status prior to hospitalization. DCP assessment completed with information currently available. Patient is a 72 year old male who admitted yesterday evening to the care of the hospitalist team. PCP: Dr. Guzman. Payer: confirmed: Medicare/[employer]. Patient came to the hospital via private vehicle secondary to having 3 days of weakness. Patient is an insulin diabetic. He did complain of some loose stools black in color. He has also been incontinent of urine, too fatigued to use the bathroom. Patient did note decreased H&H, concern for GI bleed. Notes also indicate that patient was scheduled for back surgery, but due to neurological events, has been postponed. His neurology appointment is on March 13. Met with patient in his room. He is alert, flat effect, is alert and oriented. Confirmed that he resides here in [place], alone. He has a brother that resides in [place], and his friend is his neighbot, Ham [place]. Asked him if hs is still driving, nodded his head. He does have a cane for home use if needed. He had noted increased weakness lately. He is to be working with the therapy team today. O.T. did state, patient was having balance issues. May be a candidate for home health versus alf. Will need to check inpatient status. P: DCP to continue to follow for needs. Patient may benefit with home health, will have to see how he does with P.T. as well, and to see if he is a alf candidate. Yari Kapadia RN/Hearing Impaired Itinerant Teacher Discharge Planning/Care Management Advanced directive, confirm from FAMILY Start: 02/25/23 23:34 Freq: Q24H Status: Active Protocol: Document 02/25/23 23:34 AGW (Rec: 02/25/23 23:34 AGW [id number]) Advance Directive, confirm on record Time 23:34 Person contacted patient Copy received No CM Discharge Assessment Start: 02/26/23 12:19 Freq: Status: Active Protocol: Document 02/26/23 12:20 VM (Rec: 02/26/23 12:21 [id number]) Discharge Planning Assessment Assigned Tube Laser Operator Yari Kapadia RN/Hearing Impaired Itinerant Teacher Advance Directives? No Advance Directives on File No History Provided By Patient,Medical Record Prior Living Arrangements House Household Members none Type of transporation used prior to Drives own vehicle admit Independent with ADL's Yes Is patient alert and oriented? Yes Caregiver for Another No DME Already Rented / Owned Other Comment Patient states that he used a cane when he was having hip pain and now he no longer uses it. Patient/Family Preference Fdc Facility,Home with Home Health Barriers to Discharge Yes Comment Lives alone, weakness. Discharge Plan Home Transportation Arrangement Self or facility, if he goes to skilled facility Referrals Initiated Other Additional Comment Will have to check with P.T. Whiteboard Updated in Patient Room with Yes name and ext. # of Tube Laser Operator Review Status In Process Next Review Type Continued Stay Review
[2023-02-26] MEDS: GABAPENTIN 300 MG CAPSULE 600 MG PO (17:13)
[2023-02-26 18:23] LABS: Hematocrit 28.3 % (41-53); Hemoglobin 9.9 g/dL (13.5-17.5)
[2023-02-27] VITALS (24 sets, daily range): BP systolic 80–133; BP diastolic 37–67; PULSE 52–82; RESP 14–23; TEMP 36.1–36.8; O2SAT 95–99; BMI 26.0
--- NOTE | 2023-02-27 | PATH_ITS ---
[facility] Accession Number: [id number] No. of containers..02 Tissue . 01 Material submitted: . PART A: stomach - ANTRUM PART B: esophagus - DISTAL ESOPHAGUS . 01 Diagnosis: A. Antrum, Biopsy: Gastric antral mucosa with mild features of reactive gastropathy. Negative for Helicobacter organisms by immunohistochemistry. Negative for intestinal metaplasia. Negative for dysplasia or malignancy. . B. Distal Esophagus, Biopsy: Proximal gastric-type mucosa with ulcer and specialized intestinal metaplasia, consistent with Vaughn's esophagus. Negative for fungal organisms on AB/PAS stain. Negative for cytomegalovirus or herpes simplex virus inclusions by immunohistochemistry. Negative for dysplasia or malignancy. MRV 03/05/2023 1448 Local . 01 Electronically signed: . Paul Ivy MD, PhD, Pathologist NPI- [id number] . 01 Gross description: . Part A: ANTRUM: Received in formalin are 4 fragment(s) of merida, soft tissue measuring 0.1 x 0.1 x 0.1 cm to 0.3 x 0.3 x 0.2 cm submitted entirely in 1 cassette(s) Part B: DISTAL ESOPHAGUS: Received in formalin are multiple fragment(s) of merida, soft tissue measuring 0.1 x 0.1 x 0.1 cm to 0.3 x 0.2 x 0.2 cm submitted entirely in 1 cassette(s) /KARTHIKEYAN 03/03/2023 2228 Local . 01 Microscopic: . A. An immunohistochemical stain was performed to evaluate for Helicobacter organisms and is negative. The control stain showed appropriate reactivity. . B. An AB/PAS stain is performed to evaluate for fungal organisms and is negative. Immunohistochemical stains are negative for cytomegalovirus or herpes simplex virus inclusions, respectively. Control stains show appropriate reactivity. . * This test was developed and its performance characteristics determined by [facility]. It has not been cleared or approved by the U.S. Food and Drug Administration. The FDA has determined that such clearance or approval is not necessary. This test is used for clinical purposes. It should not be regarded as investigational or for research. . 01 Pathologist provided ICD-10: K29.60, K22.70, K22.10 . 01 CPT . 365953, 911392, E09559, A62688, 004757 Specimen Comment: A courtesy copy of this report has been sent to [phone] Performed at: 01 [facility] [address] [place] [address], [place], [place] [id number] MD Yariel Jensen MD Phone: [phone]
[2023-02-27] MEDS: LACTATED RINGERS 1,000 ML 100 ML IV (00:32)
[2023-02-27 05:46] LABS: Add Manual Diff / Slide Review NO; Basophils Absolute Auto 0 /uL (0-100); Basophils Percent Auto 0.1 % (0-2); Eosinophils Absolute Auto 0 /uL (0-450); Eosinophils Percent Auto 1.1 % (2-4); Hematocrit 26.5 % (41-53); Hemoglobin 9.3 g/dL (13.5-17.5); Lymphocytes Absolute Auto 1000 /uL (1100-4500); Lymphocytes Percent Auto 21.2 % (25-40); Mean Corpuscular Hemoglobin 30.5 PG (26-34); Monocytes Absolute Auto 500 /uL (0-900); Monocytes Percent Auto 10.5 % (3-14); Neutrophils Absolute Auto 3100 /uL (1500-7000); Neutrophils Percent Auto 67.1 % (50-75); Platelet Count 109 X10^3/uL (150-400); Red Blood Cell Count 3.04 X10^6/uL (4.5-5.9); White Blood Cell Count 4.6 X10^3/uL (4.5-11.0)
[2023-02-27 05:50] LABS: BUN Creatinine Ratio 20.3 (6-22); Blood Urea Nitrogen 13 mg/dL (9-20); Calcium 7.9 mg/dL (8.4-10.2); Carbon Dioxide 22 mmol/L (22-32); Chloride 106 mmol/L (98-107); Estimated Glomerular Filt Rate > 60 mL/min (>60); Glucose 169 mg/dL (80-110); HEMOLYSIS 19 (0-50); Potassium 3.5 mmol/L (3.4-5.1); Sodium 134 mmol/L (137-145)
[2023-02-27] MEDS: ATORVASTATIN 20 MG TABLET PO (08:21)
[2023-02-27] MEDS: carvediloL 12.5 MG TABLET 25 MG PO (08:21)
[2023-02-27] MEDS: MAGNESIUM OXIDE 400 MG TABLET PO ×2 (08:21→20:52)
[2023-02-27] MEDS: AMLODIPINE 5 MG TABLET PO (08:21)
[2023-02-27] MEDS: PANTOPRAZOLE 40 MG VIAL IV ×2 (08:22→20:54)
[2023-02-27] MEDS: TAMSULOSIN 0.4 MG CAPSULE PO (08:22)
--- NOTE | 2023-02-27 08:30 | PM.PN.1 ---
Subjective Subjective Date Patient Seen: 02/27/23 Time Patient Seen: 08:31 Interval history: Patient with a pretty good day yesterday. He said by evening he felt like he was doing well feel like it is energy and strength back. Was up with both physical therapy and occupational therapy yesterday both felt like he was actually fairly independent No other additional symptoms Vital signs have been stable Hemoglobin hematocrit have drifted down with hematocrit of 26% this morning Blood sugars have been elevated consistently Exam Vital Signs (past 8 hours): - 02/27/23 03:55 02/27/23 07:35 02/27/23 08:21 Temperature 97.7 F 97.4 F L Pulse Rate 79 82 82 Respiratory Rate 16 18 Blood Pressure 106/58 L 116/59 L 116/59 L Pulse Oximetry 97 98 Oxygen Flow Rate 0 Oxygen Delivery Method Room Air Oxygen Flow Rate 0 Objective Labs 02/27/23 05:07 02/27/23 05:07 Labs: Laboratory Results - last 24 hr 02/26/23 02/27/23 02/27/23 18:10 05:07 05:07 WBC 4.6 RBC 3.04 L Hgb 9.9 L 9.3 L Hct 28.3 L 26.5 L MCV 87.0 MCH 30.5 MCHC 35.0 RDW 18.0 H Plt Count 109 L Neut % (Auto) 67.1 Lymph % (Auto) 21.2 L [place] % (Auto) 10.5 Eos % (Auto) 1.1 L Baso % (Auto) 0.1 Neut # (Auto) 3100 Lymph # (Auto) 1000 L [place] # (Auto) 500 Eos # (Auto) 0 Baso # (Auto) 0 Sodium 134 L Potassium 3.5 Chloride 106 Carbon Dioxide 22 BUN 13 Creatinine 0.64 L Estimated GFR > 60 BUN/Creatinine Ratio 20.3 Glucose 169 H Calcium 7.9 L [facility] Medical History Acute GI bleeding Automatic implantable cardiac defibrillator in situ (~07/2019) Cerebrovascular accident Degeneration of intervertebral disc of cervical region Diabetic peripheral neuropathy (07/25/15) Essential hypertension [facility] current use of insulin (08/20/16) Mixed hyperlipidemia Nonischemic cardiomyopathy (09/09/16) Type 2 diabetes mellitus with hyperglycemia, with long-term current use of insulin Type 2 diabetes mellitus without complication Social History marital status: unmarried,single number of children: 0 household members: none lives independently: Yes caregiver/support person: Yes housing: house pets and animals: Yes education level: other (Bachelor's Degree) occupational status: other (Retired) current occupational exposures/hazards: No 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 GI bleed-patient for upper endoscopy today. I think this is entirely appropriate to help establish what may or may not be going on in effort to better triage next steps in evaluation and management. He is had enough blood loss but I think he would benefit from transfusion as well given that his presenting diagnosis was weakness will go ahead and give him 2 units of packed red cells 2. Acute blood loss anemia-as above transfuse 2 units in effort to improve his overall clinical status his energy level strength etcetera 3. Diabetes-patient is off all of his diabetic medications including his 70 30 insulin. I am going to go ahead and give him some Lantus this morning and continue with coverage insulin as necessary in effort to better improve blood sugars 4. Cardiac-patient with a nonischemic cardiomyopathy is stable on current medications. No evidence of cardiac issues/congestive heart failure at this time. Continue usual medications. 5. Back pain-continue with increased activity which I think will help with his back pain. Unfortunately his computer based preop orders for surgery that was previously scheduled for March 03 were activated early this morning and so he got a dose of preoperative antibiotics etcetera. I have discontinued all inappropriate orders at this point. 6. Weakness-patient actually did quite well with PT and OT. Continue with those therapies as able today around the timing of his endoscopy. I want to ensure he is stable and safe to go home when ready for discharge. Patient yesterday was not feeling as though he required any additional assistance at home in the form of home health etcetera. I am not quite sure that is 100% true given his presentation. However will continue to have this dialogue. He likely be ready for discharge tomorrow unless there some unexpected new clinical finding or occurrence Quality VTE Deep Vein Thrombosis/Pulmonary Embolism Present on Admission: No
[2023-02-27] MEDS: INSULIN GLARGINE 100 UNIT/ML 3ML PEN 30 UNIT SUBCUT (10:22)
--- NOTE | 2023-02-27 10:37 | PT.IPTN ---
Current Diagnoses Gastrointestinal hemorrhage, unspecified (02/25/23) Surgery Performed Operation Date: 02/27/23 14:15 <No data on this case meets the specified criteria> Physical Therapy Treatment Note M2 PT-IP Current Condition Start: 02/26/23 12:00 Freq: NEEDED Status: Active Protocol: Document 02/26/23 12:00 ES (Rec: 02/26/23 12:18 ES [id number]) Physical Therapy Current Condition Current Condition Evaluation Date 02/26/23 Treatment Diagnosis GI bleed, weakness Onset Date 02/25/23 M3 PT-IP Subjective Start: 02/26/23 12:00 Freq: NEEDED Status: Active Protocol: Document 02/27/23 10:19 KS (Rec: 02/27/23 13:01 KS [id number]) Subjective Physical Therapy Visit Type Type Treatment Note Visit Start Time 10:19 Visit Stop Time 10:37 Total Visit Minutes 18 Number of CATERING SALES MANAGER Visits 1 Physical Therapy Visit Comments Patient Comments Pt agreeable to work w/ PT. M4 PT-IP Mobility and Gait Start: 02/26/23 12:00 Freq: NEEDED Status: Active Protocol: Document 02/27/23 10:19 KS (Rec: 02/27/23 13:01 KS [id number]) PT-Bed Mobility Assessment Supine to Sit Supine to Sit Standby Assistance Sit to Supine Sit to Supine Standby Assistance Scooting Scooting to Edge of Bed Standby Assistance Scooting Up and Down in Bed Standby Assistance PT-Transfer Assessment Sit to and From Stand Sit to and from Stand Standby Assistance,Use of Upper Extremities Equipment Transfer Assistive Device Gait Belt,Front Wheeled Walker Transfers Transfer Destination Bed Transfer Technique pt ambulated Transfer Ability Level of Assist Standby Assistance,Use of Upper Extremities Comments Mobility Comments Cued for hand placement for safety with FWW. Gait Assessment Gait Gait Assistance Required: Contact Guard Assist Distance (Feet) 60 Assistive Devices Assistive Device Gait Belt,Front Wheeled Walker Gait Deviations General Gait Pattern Decreased Stride Length, Decreased Feet Clearance, Flexed Trunk,Lateral Trunk Lean,Wide Based Gait Factors Limiting Gait Function Factors Limiting Gait Function Decreased Strength,Pain,Poor Balance Comments Gait Comments Good use of FWW, no LOB but states he feels safer using FWW. Asking friend to obtain FWW from [employer], but may need one dispensed. Stair Climbing Assessment Comments Stair Climbing Comments Did not assess. PT-Balance Assessment Sitting Balance and Reactions Static Sitting Balance Ability Good Dynamic Sitting Balance Ability Good Standing Balance and Reactions Static Standing Balance Ability Good Dynamic Standing Balance Ability Fair Device Used FWW M5 PT-IP Objective Assessments Start: 02/26/23 12:00 Freq: NEEDED Status: Active Protocol: Document 02/26/23 12:00 ES (Rec: 02/26/23 12:18 ES [id number]) Orientation Orientation/Cognition Level of Alertness Alert Language Function Ability No Deficits Noted Safety Awareness Understands Safety Issues Memory Description No Deficits Noted Gross Range of Motion Upper Extremity ROM Assessment Within Functional Limits Lower Extremity ROM Assessment Within Functional Limits Strength Lower Extremity Strength Assessment Within Functional Limits Coordination Assessment Gross Coordination Gross Coordination WNL M6 PT-IP Treatment Start: 02/26/23 12:00 Freq: NEEDED Status: Active Protocol: Document 02/27/23 10:19 KS (Rec: 02/27/23 13:01 KS [id number]) Physical Therapy Treatment Exercises Exercises Ankle Pumps Education Education Provided Safety M7 PT-IP Assessment and Plan Start: 02/26/23 12:00 Freq: NEEDED Status: Active Protocol: Document 02/27/23 10:19 KS (Rec: 02/27/23 13:01 KS [id number]) PT Summary Assessment and Plan Potential Rehabilitation Potential Good Summary Impairments Strength,Balance,Bed Mobility, Transfers,Gait,Activity Tolerance Progress Towards Goals Progressing Toward Goals Assessment Summary Pt safest when using FWW to ambulate. Able to walk 60 ft w / FWW. Wants FWW for home use and is asking his friend to pick up worker FWW from [employer] tomorrow but if he is not able to obtain one then pt would like one dispensed from hospital. He will need to complete stair training prior to d/c. Goals Bed Mobility Goal Independent Transfer Goal Independent,Cane,Front Wheeled Walker Gait Goal Independent,Cane,Front Wheel Walker Gait Distance 300 Other Goals Patient will be able to ascend /descend full flight of stairs with LRAD independently. Days to Meet Goals 5 Frequency of Treatment Frequency Of Treatment Once a Day Treatment Plan Physical Therapy Treatment Plan Bed Mobility Training,Transfer Training,Gait Training, Therapeutic Exercise,Balance Retraining,Discharge Planning Other Recommendations and Next Treatment Progress strength, transfers, Focus gait, and stairs with FWW progressing cane if appropriate. Recommendations To Nursing Amount of Assist Needed 1 Person Assist Discharge Recommendations PT Discharge Recommendations Home Health Equipment Needed for Home Before Possibly FWW Discharge Transportation Needs at Discharge Private Vehicle
--- NOTE | 2023-02-27 10:56 | OT.IPNOTE ---
Attempted to see patient at 10:50 a.m.; patient with NSG and unavailable for treatment. Will be having procedure in afternoon. OT to attempt to see patient at an alternative time in the afternoon.
--- NOTE | 2023-02-27 12:41 | CM.DPC ---
DCP Cont: Per MD, pt seems to be making some improvements but has continued to have signs of blood loss and to have transfusion and also scope today to determine if active bleed and source. Pt to continue with PT/OT as well to r/o need for HH as pt currently declines need for HH. ANGELIQUE Mccall
--- NOTE | 2023-02-27 13:36 | OT.IPNOTE ---
Pt just completing transfusion and states feeling better and agreed to try showering tomorrow for OT session.
--- NOTE | 2023-02-27 14:27 | PM.CN ---
History of Present Illness Consult details Chief complaint: weakness,P/t is Diabetic had no meds in 3 days Narrative: Elpidio is a 72-year-old man who presents with weakness and was found to be anemic. He reports that he may have had black stools recently. He had an EGD by Dr. Estrada last summer and was found to have a duodenal ulcer. Meds Home Medications and Allergies Home Medications Medication Instructions Recorded Confirmed Type nortriptyline 50 mg capsule See Rx Instructions PO HS #180 caps 04/30/21 02/26/23 Rx aspirin 325 mg tablet,delayed 325 mg PO DAILY #250 tabs 07/06/21 02/26/23 Rx release Glucose: Test Strips #500 ea 08/27/21 02/26/23 Rx blood-glucose meter (Blood Glucose #1 ea 08/27/21 02/26/23 Rx Monitoring kit) acetaminophen 325 mg tablet 650 mg PO Q6HR PRN Fever/Mild Pain 05/18/22 02/26/23 Rx (1-3) #60 tabs flash glucose scanning reader #1 ea 06/20/22 02/26/23 Rx (FreeStyle Tara 14 Day [place]) flash glucose sensor (FreeStyle #1 ea 06/20/22 02/26/23 Rx Tara 14 Day Sensor kit) blood-glucose meter,continuous #1 ea 06/26/22 02/26/23 Rx (Dexcom G6 Donkey Ride Operator) blood-glucose sensor (Dexcom G6 #3 ea 06/26/22 02/26/23 Rx Sensor device) blood-glucose transmitter (Dexcom #1 ea 06/26/22 02/26/23 Rx G6 Transmitter device) gabapentin 300 mg capsule 600 mg PO QPM #180 caps 09/17/22 02/26/23 Rx tamsulosin 0.4 mg capsule 0.4 mg PO DAILY #90 caps 10/14/22 02/26/23 Rx carvedilol 25 mg tablet 25 mg PO BID #180 tabs 10/16/22 02/26/23 Rx magnesium oxide 400 mg (241.3 mg 400 mg PO BID #180 tabs 10/16/22 02/26/23 Rx magnesium) tablet insulin NPH-regular 70-30 U-100 70 unit (0.7 mL) SUBCUT BID #200 mL 11/11/22 02/26/23 Rx insulin 100 unit/mL subcutaneous pen (Humulin 70/30 U-100 KwikPen) amlodipine 5 mg tablet 5 mg PO DAILY #90 tabs 12/19/22 02/26/23 Rx atorvastatin 20 mg tablet 20 mg PO DAILY #90 tabs 01/03/23 02/26/23 Rx metformin 500 mg tablet,extended 1,000 mg PO BID #360 tabs 01/06/23 02/26/23 Rx release 24 hr oxycodone 5 mg tablet 5 mg PO Q6H PRN pain #60 tabs 02/09/23 02/26/23 Rx Allergies Allergy/AdvReac Type Severity Reaction Status Date / Time No Known Drug Allergies Allergy Verified 02/25/23 18:42 Exam Vital Signs (past 8 hours): - 02/27/23 07:35 02/27/23 08:21 02/27/23 07:00 Temperature 97.4 F L Pulse Rate 82 82 Respiratory Rate 18 Blood Pressure 116/59 L 116/59 L Pulse Oximetry 98 98 Oxygen Delivery Method Room Air Oxygen Flow Rate 0 02/27/23 10:51 02/27/23 11:07 02/27/23 13:42 Temperature 97.4 F L 97 F L 97.2 F L Pulse Rate 59 L 57 L 58 L Respiratory Rate 14 15 15 Blood Pressure 109/53 L 111/51 L 114/52 L Pulse Oximetry Oxygen Delivery Method Oxygen Flow Rate 02/27/23 13:55 Temperature 97.0 F L Pulse Rate 58 L Respiratory Rate 16 Blood Pressure 132/67 Pulse Oximetry 98 Oxygen Delivery Method Room Air Oxygen Flow Rate Oxygen Delivery Method Room Air Oxygen Flow Rate 0 Const General: disheveled Objective Labs 02/27/23 05:07 02/27/23 05:07 Labs: Laboratory Results - last 24 hr 02/26/23 02/27/23 02/27/23 18:10 05:07 05:07 WBC 4.6 RBC 3.04 L Hgb 9.9 L 9.3 L Hct 28.3 L 26.5 L MCV 87.0 MCH 30.5 MCHC 35.0 RDW 18.0 H Plt Count 109 L Neut % (Auto) 67.1 Lymph % (Auto) 21.2 L Rooks % (Auto) 10.5 Eos % (Auto) 1.1 L Baso % (Auto) 0.1 Neut # (Auto) 3100 Lymph # (Auto) 1000 L Rooks # (Auto) 500 Eos # (Auto) 0 Baso # (Auto) 0 Sodium 134 L Potassium 3.5 Chloride 106 Carbon Dioxide 22 BUN 13 Creatinine 0.64 L Estimated GFR > 60 BUN/Creatinine Ratio 20.3 Glucose 169 H Calcium 7.9 L Blood Type Antibody Screen Crossmatch 02/27/23 08:50 WBC RBC Hgb Hct MCV MCH MCHC RDW Plt Count Neut % (Auto) Lymph % (Auto) Rooks % (Auto) Eos % (Auto) Baso % (Auto) Neut # (Auto) Lymph # (Auto) Rooks # (Auto) Eos # (Auto) Baso # (Auto) Sodium Potassium Chloride Carbon Dioxide BUN Creatinine Estimated GFR BUN/Creatinine Ratio Glucose Calcium Blood Type O Positive Antibody Screen Negative Crossmatch See Detail [facility] Medical History Acute GI bleeding Automatic implantable cardiac defibrillator in situ (~07/2019) Cerebrovascular accident Degeneration of intervertebral disc of cervical region Diabetic peripheral neuropathy (07/25/15) Essential hypertension 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
--- NOTE | 2023-02-27 15:08 | PM.OP.EGD ---
Operative Date/Time/Diagnoses Date of procedure: 02/27/23 Time of procedure: 15:08 Pre-op diagnosis: Melena and anemia Post-op diagnosis: same Procedure & Clinicians Study performed: Esophagogastroduodenoscopy Same procedure as scheduled: Yes Surgeon: Raj Ramos Procedure Notes Procedure in detail: Surgeon: Raj Ramos MD Anesthesia: Dilip Ansari timeout was performed. A bite blocked was placed. The patient was positioned in the left lateral decubitus position. Anesthesia was administered. The endoscope was inserted through the bite block and passed through the esophagus and stomach and into the duodenum. The duodenal mucosa appeared normal. The scope was withdrawn into the duodenal bulb and no ulcers were seen. The scope was withdrawn into the stomach. Were multiple small shallow ulcers in the antrum and random biopsies were taken. The rest of the stomach was normal. The scope was retroflexed and no hiatal hernia was seen. The scope was withdrawn into the esophagus and there were salmon colored patches of mucosa extending into the esophagus at least 2 cm in length. Multiple biopsies were taken. The remainder of the esophagus was normal. The scope was withdrawn. The patient was awakened and brought to recovery. Sedation time: 13 minutes Findings: Multiple small shallow antral ulcers and distal esophagitis Post-procedure Disposition: PACU
[2023-02-27] MEDS: GABAPENTIN 300 MG CAPSULE 600 MG PO (16:32)
[2023-02-27] MEDS: INSULIN GLARGINE 100 UNIT/ML 3ML PEN 50 UNIT SUBCUT (20:51)
[2023-02-27] MEDS: INSULIN LISPRO 100 UNIT/ML 3ML VIAL SUBCUT (20:55)
[2023-02-27 22:03] LABS: Hematocrit 36.7 % (41-53); Hemoglobin 12.8 g/dL (13.5-17.5)
[2023-02-28 03:10] VITALS: BP 142/67; PULSE 56; RESP 18; TEMP 36.1; O2SAT 93
[2023-02-28 05:25] LABS: Hematocrit 34.3 % (41-53); Hemoglobin 12.1 g/dL (13.5-17.5)
[2023-02-28 05:43] LABS: BUN Creatinine Ratio 15.9 (6-22); Blood Urea Nitrogen 10 mg/dL (9-20); Calcium 8.1 mg/dL (8.4-10.2); Carbon Dioxide 24 mmol/L (22-32); Chloride 104 mmol/L (98-107); Estimated Glomerular Filt Rate > 60 mL/min (>60); Glucose 114 mg/dL (80-110); HEMOLYSIS < 15 (0-50); Potassium 3.1 mmol/L (3.4-5.1); Sodium 133 mmol/L (137-145)
[2023-02-28 08:28] VITALS: O2SAT 97
--- NOTE | 2023-02-28 08:45 | PM.DS.1 ---
History of Present Illness History of Present Illness Date Patient Seen: 02/28/23 Time Patient Seen: 08:46 Chief complaint: weakness,P/t is Diabetic had no meds in 3 days Narrative: 72-year-old male, well known to me, presented to the emergency department with several days of weakness to the point where he was unable to get up and take his medications including his insulin, been unable to get up off the bed and in fact has been completely incontinent of urine as he is unable to get to the bathroom because of his global weakness. Patient reports this began with hiccups that have been unrelenting since that time. No other respiratory symptoms does not feel short of breath not coughing. He really has not had anything to eat for at least 2 days he is thinking maybe closer to 4 he is kind of lost track of time. No fever chills. No orthopnea no PND no palpitations No neurologic symptoms per se (been recently admitted a couple of times with neurologic symptoms/TIA). Denies any real shortness of breath abdominal pain chest pain palpitations. He has implanted defibrillator has not had any discharges. Does report some loose stools that been very dark if not black in color. Patient also reports dark-colored emesis ER evaluation was mostly unremarkable. Was minimally anemic with the slowly drifting down hemoglobin/hematocrit. Apparently guaiac positive per ER physician Admitted for possible slow GI bleed Patient was admitted in May of 2022 with evidence of a more active GI bleed. At that time he underwent upper and lower endoscopy that failed to reveal an etiology for his bleed although evidence of blood was seen above the cecum so felt to be an upper GI source of bleeding. His count stabilized and he was subsequently not refer to gastroenterology for further evaluation (given the presentation with his neurologic symptoms etcetera, the GI issues were felt to be less critical). He recently has had his neurologic events as above and has been started on dual anti-platelet therapy with low-dose aspirin and Plavix which may be an etiology to this ongoing bleed Patient also dealing with chronic back pain issues was to have spinal surgery but that has been delayed because of his neurologic events until he can see Neurology which is currently scheduled for March 13 Discharge Providers Provider Date of admission: 02/25/23 21:29 Discharge Date: 02/28/23 Primary care physician: Salvador Guzman MD Consults: 02/25/23 21:29 Consult to General Surgery Stat Comment: Consulting Provider: Fortunato Wei Reason for consultation: GI bleed Has provider been notified: Yes 02/25/23 22:46 Consult to Discharge Planning Routine Comment: Consult to Occupational Therapy Evaluate & Treat Comment: Physician Instructions: Evaluate and treat Consult to Physical Therapy Evaluate & Treat Comment: Physician Instructions: Evaluate and Treat Discharge provider: Salvador Guzman MD Summary Hospital Course Discharge Diagnosis: 1. Gastric ulcers 2. Esophagitis 3. GI bleed from an upper source 4. Persistent hiccuping 5. Type 2 diabetes on long-term insulin 6. Nonischemic cardiomyopathy 7. Acute blood loss anemia secondary to GI bleed 8. Severe neck and back pain Hospital Course: Patient was admitted as above to the hospital with generalized weakness and evidence of active GI bleed. His hemoglobin/hematocrit slowly drifted down to the point where he was felt to benefit from transfusion which was given. His counts remained stable following that. He did undergo upper endoscopy which revealed several shallow ulcers in the antrum as well as some esophagitis in the distal esophagus. No active bleeding was noted. Patient has been placed on a proton pump inhibitor upon admission that will be continued as an outpatient Patient's gastric issues likely least in part secondary to his active therapy with aspirin and clopidogrel in effort to prevent recurrent vascular based neurologic events. These medications will have to be discontinued at least in the short term Patient did have persistent hiccuping upon admission CT scan of the chest failed to reveal any evidence of any abnormality. I suppose it is possible with hiccups or coming from his gastric irritation. In any event the hiccuping seem to come and go it was gone for least 24 hours then recurred. No clear etiology for this was elucidated or able to be treated Patient was up with physical and occupational therapy felt to be doing well. This happen right away therefore unclear as to the exact etiology of patient's lethargy and inability to function in the home setting Patient was seen in consultation by discharge planning staff he was offered home health services including physical therapy and occupational therapy. He declined all of the above although in the end did accept nursing only services in the home setting. Patient's cardiac issues are stable he continue on his usual cardiac medications there were no active issues their Patient's diabetes was rather poorly controlled in part because we held his oral diabetic medications as well as altered his diet significantly. However in the 24 hours prior to discharge his blood sugars were improved and he will return to his usual regimen at home which most recently has resulted in hemoglobin A1c of less than 6 Status at Discharge Cognitive/behavioral status at discharge: oriented Functional status at discharge: uses cane/walker Overall status at discharge: patient is progressing back to baseline Exam Vital Signs (past 8 hours): - 02/28/23 03:10 02/28/23 08:28 Temperature 96.9 F L Pulse Rate 56 L Respiratory Rate 18 Blood Pressure 142/67 H Pulse Oximetry 93 97 Oxygen Delivery Method Room Air Oxygen Flow Rate 0 Oxygen Delivery Method Room Air Oxygen Flow Rate 0 Objective Labs 02/28/23 04:56 02/28/23 04:56 Labs: Laboratory Results - last 24 hr 02/27/23 02/27/23 02/28/23 08:50 21:52 04:56 Hgb 12.8 L 12.1 L Hct 36.7 L 34.3 L Sodium Potassium Chloride Carbon Dioxide BUN Creatinine Estimated GFR BUN/Creatinine Ratio Glucose Calcium Blood Type O Positive Antibody Screen Negative Crossmatch See Detail 02/28/23 04:56 Hgb Hct Sodium 133 L Potassium 3.1 L Chloride 104 Carbon Dioxide 24 BUN 10 Creatinine 0.63 L Estimated GFR > 60 BUN/Creatinine Ratio 15.9 Glucose 114 H Calcium 8.1 L Blood Type Antibody Screen Crossmatch [facility] Medical History Acute GI bleeding Automatic implantable cardiac defibrillator in situ (~07/2019) Cerebrovascular accident Degeneration of intervertebral disc of cervical region Diabetic peripheral neuropathy (07/25/15) Essential hypertension [facility] current use of insulin (08/20/16) Mixed hyperlipidemia Nonischemic cardiomyopathy (09/09/16) Type 2 diabetes mellitus with hyperglycemia, with long-term current use of insulin Type 2 diabetes mellitus without complication Social History marital status: unmarried,single number of children: 0 household members: none lives independently: Yes caregiver/support person: Yes housing: house pets and animals: Yes education level: other (Bachelor's Degree) occupational status: other (Retired) current occupational exposures/hazards: No 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: [employer] travel history: recent leisure activities: music, reading and other (Hiking.) Smoking Status: Never smoker quit status: quit date established second hand exposure: No alcohol intake: current substance use type: does not use Discharge Plan Discharge Plan Patient Disposition: Home Health Service Provider Discharge Comment: Patient agrees to home health nursing, not PT/OT Discharge orders & Medications Prescriptions: New ivabradine 5 mg Tablet 5 mg PO BID Qty: 180 3RF sacubitril-valsartan 24-26 mg Tablet 1 tab PO BID Qty: 180 3RF omeprazole 40 mg capsule,delayed release(DR/EC) 40 mg PO BID Qty: 60 3RF Continued nortriptyline 50 mg capsule See Rx Instructions PO HS Qty: 180 3RF Dose Instruction: 1-2 caps PO HS; Rx Instructions: 1-2 caps PO HS; tamsulosin 0.4 mg capsule 0.4 mg PO DAILY Qty: 90 3RF Humulin 70/30 U-100 KwikPen 100 unit/mL (70-30) insulin pen 70 unit SUBCUT BID Qty: 200 10RF Rx Instructions: 85 units twice daily, SUBCUT ; amlodipine 5 mg tablet 5 mg PO DAILY Qty: 90 1RF atorvastatin 20 mg tablet 20 mg PO DAILY Qty: 90 1RF metformin 500 mg tablet extended release 24 hr 1,000 mg PO BID Qty: 360 3RF oxycodone 5 mg tablet 5 mg PO Q6H PRN (Reason: pain) Qty: 60 0RF (DME) FreeStyle Tara 14 Day [place] Misc See Rx Instructions .ROUTE .MEDSUPPLY Qty: 1 0RF Rx Instructions: USE FOR CONTINUOUS BLOOD GLUCOSE MONITORING. REPLACE EVERY YEAR. (DME) FreeStyle Tara 14 Day Sensor Kit See Rx Instructions .ROUTE .MEDSUPPLY Qty: 1 12RF Rx Instructions: USE FOR CONTINUOUS GLUCOSE MONITORING. REPLACE EVERY 30 DAYS. (DME) Dexcom G6 Sensor Device See Rx Instructions .Route Qty: 3 3RF Rx Instructions: As directed (DME) Dexcom G6 Product Grader Misc See Rx Instructions .Route Qty: 1 0RF Rx Instructions: As directed (DME) Dexcom G6 Transmitter Device See Rx Instructions .Route Qty: 1 0RF Rx Instructions: As directed (DME) blood-glucose meter [Blood Glucose Monitoring] Kit See Rx Instructions .ROUTE .MEDSUPPLY Qty: 1 0RF Rx Instructions: As directed (DME) Glucose: Test Strips 0 .Route .MEDSUPPLY Qty: 500 11RF Rx Instructions: Use as directed to check blood sugar up to 4 times daily gabapentin 300 mg capsule 600 mg PO QPM Qty: 180 3RF Rx Instructions: patient requests this w/ dinner instead of HS magnesium oxide 400 mg (241.3 mg magnesium) tablet 400 mg PO BID Qty: 180 3RF carvedilol 25 mg tablet 25 mg PO BID Qty: 180 3RF Rx Instructions: must administer with a meal/food acetaminophen 325 mg Tablet 650 mg PO Q6HR PRN (Reason: Fever/Mild Pain (1-3)) Qty: 60 0RF Discontinued aspirin 325 mg Tablet,Delayed Release (Dr/Ec) 325 mg PO DAILY Qty: 250 0RF Follow up/Referrals: Salvador Guzman MD [Primary Care Provider] - 2 Weeks Diet/Activity/Treatments Diet: Diet as Tolerated and Carb-consistent/Diabetic Visit Report/Discharge Packet Instructions: DI for Gastritis, DI for Gastric Ulcer Stand Alone Forms: Patient Portal/API, Stroke Signs & Symptoms, EGD Result: [facility] Surg Discharge Data Primary Care Provider: Salvador Guzman Quality VTE Deep Vein Thrombosis/Pulmonary Embolism Present on Admission: No
--- NOTE | 2023-02-28 08:51 | OT.IPNOTE ---
Therapist approached patient for shower; patient not agreeable to shower. Patient expressed that he would like 'to wait until he gets home'. Report of platform bath in the home w/ availability of 1 grab bar. Report of sitting on edge of the bath and swinging legs over to enter and exit. Patient stated that he told his MD that he was agreeable to HH 1 x a week. OT to follow-up.
[2023-02-28 09:12] VITALS: BP 137/57; PULSE 56; RESP 16; TEMP 36.4; O2SAT 98
[2023-02-28] MEDS: POTASSIUM CHLORIDE 20 MEQ TAB 40 MEQ PO (09:13)
[2023-02-28] MEDS: ATORVASTATIN 20 MG TABLET PO (09:14)
[2023-02-28] MEDS: carvediloL 12.5 MG TABLET 25 MG PO (09:14)
[2023-02-28] MEDS: AMLODIPINE 5 MG TABLET PO (09:14)
[2023-02-28] MEDS: TAMSULOSIN 0.4 MG CAPSULE PO (09:15)
[2023-02-28] MEDS: MAGNESIUM OXIDE 400 MG TABLET PO (09:15)
[2023-02-28] MEDS: PANTOPRAZOLE 40 MG VIAL IV (09:17)
--- NOTE | 2023-02-28 09:29 | CM.DPC ---
DCP Discharge Home with HH Per MD, pt is medically stable to d/c home today with outpt follow up and no identified barriers to discharge and pt now agreeable with HH but only with RN to start and had no HH preference. SW made [facility] referral based on [facility] calendar and faxed clinicals for review along with d/c summ, F2F, and HH orders. Plan: Patient to d/c home today with [facility] to follow to start HH RN services after discharge. ANGELIQUE Mccall
--- NOTE | 2023-02-28 09:45 | OT.IP.TRT ---
Current Diagnoses Gastrointestinal hemorrhage, unspecified (02/25/23) Other fatigue (02/25/23) Surgery Performed Operation Date: 02/27/23 14:15 Actual Procedures p Esophagogastroduodenoscopy W/ BIOPSIES - Raj Ramos MD Occupational Therapy Treatment Note M2 OT-IP Current Condition Start: 02/26/23 14:07 Freq: Status: Discharge Protocol: Document 02/26/23 10:56 [facility] (Rec: 02/26/23 14:46 [facility] [id number]) Occupational Therapy Current Condition Current Condition Evaluation Date 02/26/23 Treatment Diagnosis GI bleed , weakness. M3 OT- IP Subjective and Pain Start: 02/26/23 14:07 Freq: Status: Discharge Protocol: Document 02/28/23 09:22 [facility] (Rec: 02/28/23 11:52 [facility] [id number]) OT- Subjective Occupational Therapy Visit Type Type Treatment Note Visit Start Time 09:22 Visit Stop Time 09:45 Total Visit Minutes 23 Occupational Therapy Visit Comments Patient Comments Pt not wanting to shower and just wanting to get dressed so that he can go home. Patient/Caregiver Goals To go home. OT Pain Assessment Pain When Pain Assessed At Rest Pain Present Pain Present Pain Reported Location Buttock Description Burning M4 OT- IP ADL's Start: 02/26/23 14:07 Freq: Status: Discharge Protocol: Document 02/28/23 09:22 [facility] (Rec: 02/28/23 11:52 [facility] [id number]) OT NTA-Eymn-Qsxogef Comments OT Self-Feeding Comments Not at meal time. OT ADL-Grooming Comments OT Grooming Comments Pt refusing and nursing aid trying to assist pt for needs. OT ADL-Oral Care Comments Oral Care Comments Pt refusing. OT ADL-Dressing General Eval Lower Body Dressing Ability Contact Guard Assistance Comments OT Dressing Comments CGA when pt trying to pull up his pants due to unsteady on his feet. Pt needing cues for orientation of clothing. OT ADL-Toileting General Evaluation Toileting Ability Minimal Assistance Areas Needing Assistance Perform Perineal Hygiene Comments OT Toileting Comments Pt disregarding his hygiene after after use of backroom and noticed redness and pt complaining of burning skin especially, on the top on the crack. Nursing notified and also nursing aid able to put barrier cream on him. OT ADL-Bathing Comments OT Bathing Comments Pt refused and agreed to sponge off and needing cues to initiate the task and follow through. M5 OT- IP IADL's Start: 02/26/23 14:07 Freq: Status: Discharge Protocol: Document 02/28/23 09:22 [facility] (Rec: 02/28/23 11:52 [facility] [id number]) OT-Instrumental Activities of Daily Living Deficits IADL Deficits Identified Deficits Home Safety Awareness Awareness of Need for Assistance at Home Decreased Awareness Ability to Problem Solve Emergency Unable to Problem Solve Situations Home Safety Comments Pt having poor insight to his needs especially for his hygiene needs. Pt would benefit from assist at home. M6 OT- IP Functional Cognition Start: 02/26/23 14:07 Freq: Status: Discharge Protocol: Document 02/28/23 09:22 [facility] (Rec: 02/28/23 11:52 [facility] [id number]) Cognitive Factors Limiting Selfcare Function Cognitive Ability Level of Alertness Alert Patient Orientation Name,Place,Situation Attention Span Ability Capable of Focused Attention, Capable of Sustained Attention Ability to Follow Commands Able to Follow One Step Commands Memory Description Short Term Impaired,Working Impaired Cognitive Comments Cognitive Assessment Comments Pt needing increased time for clothing orientation for his shirt. Pt is insistent on going home and not open to going to skilled rehab. M7 OT- IP Mobility and Balance Start: 02/26/23 14:07 Freq: Status: Discharge Protocol: Document 02/28/23 09:22 [facility] (Rec: 02/28/23 11:52 [facility] [id number]) OT-Transfer Assessment Sit to and From Stand Sit to and from Stand Standby Assistance,Contact Guard Assistance Transfers Transfer Ability Standby Assistance,Contact Guard Assistance Technique Transfer Destination Bed,Chair,Toilet Transfer Technique Stand Step Pivot Devices Transfer Assistive Devices Gait Belt,Front Wheeled Walker Comments Mobility Comments Pt unsteady on his feet and needing occasional CGA as pt trying to walk on his own. With use of FWW a bit safer. Pt states will try to get a fww for home use. OT- Balance Assessment Sitting Balance and Reactions Static Sitting Balance Ability Normal Dynamic Sitting Balance Ability Good Standing Balance and Reactions Static Standing Balance Ability Fair Dynamic Standing Balance Ability Poor M8 OT- IP Objective Assessments Start: 02/26/23 14:07 Freq: Status: Discharge Protocol: Document 02/26/23 10:56 [facility] (Rec: 02/26/23 14:46 [facility] [id number]) OT Gross Range of Motion Upper Extremity Range of Motion ROM Impairments RUE decreased due to rotaor cuff issues. Pt was to see outpt PT today. OT- Coordination Assessment Upper Extremity Finger to Nose Test Bilateral UE Impaired Comments Coordination Comments both fingers slightly off L > R M9 OT- IP Assessment and Plan Start: 02/26/23 14:07 Freq: Status: Discharge Protocol: Document 02/28/23 09:22 [facility] (Rec: 02/28/23 11:52 [facility] [id number]) OT Summary Assessment and Plan Potential Rehabilitation Potential Good Analytic Complexity at Evaluation Moderate Summary OT Impairments Strength,Balance,Functional Cognition,Functional Mobility, Dressing,Toileting,Bathing, Toilet Transfers,Shower Transfers,Activity Tolerance Progress Towards Goals Slow Progress due to Medical Issues,Slow Progress due to Activity Tolerance,Slow Progress due to Cognition Assessment Summary Pt still unsteady on his feet and having poor awareness of his hygiene and safety. pt insisting on going home and not open to going to skilled rehab. Pt is a high fall risk and for skin breakdown as noted his bottom is already raw and red- nursing aware and nursing aid able to assist to wash and put barrier cream on him. Pt however open to home health. pt is a high fall risk due to decrease safety awareness and unsteadiness on his feet. Goals Self-Feeding Goal Independent Grooming Goal Independent Dressing Goal Independent Toileting Goal Independent Bathing Goal Independent Toilet Transfer Goal Independent Shower Transfer Goal Independent Days to Meet Goals 9 Frequency of Treatment Frequency Of Treatment Once a Day Treatment Plan OT Treatment Plan ADL Training,Functional Cognition Training,Functional Mobility,Patient/Family Education,Discharge Planning Discharge Recommendations OT Discharge Recommendations SNF Rehab,Home vs SNF Other Discharge Recommendations Pt refusing SNF, therefore pt needing at least home with assist with home health Home Equipment Needs FWW, shower chair Transportation Needs at Discharge Wheelchair/Cabulance
--- NOTE | 2023-02-28 10:50 | PC.NURSE ---
Day shift: Paperwork signed and all questions answered. Pt has all personal belongings. Friend is driving him home. LEft unit via WC at approx 1050. scripts sent electronic tp Pt's pharmacy. Pt has meds that were in down in pharmacy as well (locked up ones).
== END 2023-02-28 10:54 | disposition home or self-care (01) | DRG 377 ==
LOC: ED 21:29 → AC 22:46
PROVIDERS: Emergency Medicine; Surgery; Admitting Provider Internal Medicine; Emergency Provider Emergency Medicine; PCP Internal Medicine; Visit Provider Internal Medicine
PROC: 0DJ08ZZ Inspection of Upper Intestinal Tract, Via Natural or Artificial Opening Endoscopic (ICD-10-PCS; CPT 43235; principal; 2023-02-27 14:15)
DX: K25.4 Chronic or unspecified gastric ulcer with hemorrhage (principal); K20.91 Esophagitis, unspecified with bleeding; D62 Acute posthemorrhagic anemia; I42.8 Other cardiomyopathies; E11.9 Type 2 diabetes mellitus without complications; R06.6 Hiccough; M54.9 Dorsalgia, unspecified; M54.2 Cervicalgia; E78.2 Mixed hyperlipidemia; I10 Essential (primary) hypertension; Z79.4 Long term (current) use of insulin; Z79.02 Long term (current) use of antithrombotics/antiplatelets; Z95.810 Presence of automatic (implantable) cardiac defibrillator
CPT/HCPCS: 36415; 36430; 43239; 71045; 71275; 80048; 80053; 80320; 81001; 82550; 82962; 83690; 84484; 85014; 85018; 85025; 86850; 86900; 86901; 87635; 93005; 93010; 96374; 96375; 97116; 97161; 97166; 97530; 97535; 99232; 99233; 99238; 99284; C9803; P9016; C9113; J1815; J2405; J2704; Q9967

== ENCOUNTER → 2023-03-14 12:11 | Outpatient (CLI) | payer MEDICARE, SELFPAY ==
[2023-02-25 22:37] VITALS: BMI 26.0
[2023-03-14 13:30] LABS: Add Manual Diff / Slide Review NO; Basophils Absolute Auto 0 /uL (0-100); Basophils Percent Auto 0.3 % (0-2); Eosinophils Absolute Auto 100 /uL (0-450); Eosinophils Percent Auto 1.6 % (2-4); Hemoglobin 11.8 g/dL (13.5-17.5); Lymphocytes Absolute Auto 1100 /uL (1100-4500); Lymphocytes Percent Auto 22.4 % (25-40); Mean Corpuscular HGB Conc 34.6 % (30-36); Mean Corpuscular Hemoglobin 30.7 PG (26-34); Mean Corpuscular Volume 88.7 fL (80-100); Monocytes Absolute Auto 500 /uL (0-900); Monocytes Percent Auto 9.6 % (3-14); Neutrophils Absolute Auto 3300 /uL (1500-7000); Neutrophils Percent Auto 66.1 % (50-75); Platelet Count 168 X10^3/uL (150-400); Red Blood Cell Count 3.83 X10^6/uL (4.5-5.9); Red Cell Distribution Width 16.9 % (11.6-14.8); White Blood Cell Count 4.9 X10^3/uL (4.5-11.0)
[2023-03-14 13:53] LABS: Alanine Aminotransferase 18 IU/L (<50); Albumin 3.3 g/dL (3.5-5.0); Albumin Globulin Ratio 1.2 (1.0-2.8); Alkaline Phosphatase 101 U/L (38-126); Aspartate Aminotransferase 18 IU/L (17-59); Bilirubin Total 0.5 mg/dL (0.2-1.3); Blood Urea Nitrogen 12 mg/dL (9-20); Calcium 8.3 mg/dL (8.4-10.2); Carbon Dioxide 22 mmol/L (22-32); Chloride 104 mmol/L (98-107); Estimated Glomerular Filt Rate > 60 mL/min (>60); Globulin 2.8 g/dL (1.7-4.1); Glucose 123 mg/dL (80-110); HEMOLYSIS < 15 (0-50); Sodium 137 mmol/L (137-145); Total Protein 6.1 g/dL (6.3-8.2)
[2023-03-14 14:06] LABS: Prolactin 9.9 ng/mL (3.7-17.9)
[2023-03-15 09:51] LABS: x Labcorp Estim. Avg Glu (eAG) 151 mg/dL (.); x Labcorp Hemoglobin A1c 6.9 % (4.8-5.6)
== END ==
PROVIDERS: PCP Internal Medicine; Referring Provider Internal Medicine; Visit Provider Internal Medicine
DX: I10 Essential (primary) hypertension (principal); K92.2 Gastrointestinal hemorrhage, unspecified; R56.9 Unspecified convulsions; E11.9 Type 2 diabetes mellitus without complications
CPT/HCPCS: 36415; 80053; 83036; 84146; 85025

== ENCOUNTER 2023-03-24 13:34 | Emergency (ER) | payer MEDICARE, SELFPAY ==
[2023-02-25 22:37] VITALS: BMI 26.0
[2023-03-24] VITALS (60 sets, daily range): BP systolic 65–135; BP diastolic 41–81; PULSE 0–90; RESP 12–34; TEMP 36.4; O2SAT 91–100; BMI 26.6
--- NOTE | 2023-03-24 13:38 | DI.RAD.S_ITS ---
PROCEDURE: XR CHEST 1V INDICATIONS: weak, syncope TECHNIQUE: One view of the chest was acquired. COMPARISON: [facility], CR, XR CHEST 1V, 02/25/2023, 19:13. [facility], CR, XR CHEST 1V, 01/26/2023, 13:07. FINDINGS: Surgical changes and devices: Cardiac lead projects over the appropriate positions. Lungs and pleura: Lungs are clear. No pleural effusions or pneumothorax. Mediastinum: Mediastinal contours appear normal. Heart size is normal. Bones and chest wall: No suspicious bony lesions. Overlying soft tissues appear unremarkable. IMPRESSION: No acute cardiopulmonary process. Dictated by: Panda Moreira M.D. on 03/24/2023 at 13:21 Approved by: Panda Moreira M.D. on 03/24/2023 at 13:21
--- NOTE | 2023-03-24 13:38 | DI.CT.S_ITS ---
PROCEDURE: CT HEAD/BRAIN WO CON INDICATIONS: altered mental status TECHNIQUE: Noncontrast 4.5 mm thick angled axial sections acquired from the foramen magnum to the vertex, with coronal and sagittal reformats. For radiation dose reduction, the following was used: automated exposure control, adjustment of mA and/or kV according to patient size. COMPARISON: [facility], CT, CT HEAD/BRAIN WO CON, 02/04/2023, 13:11. FINDINGS: Image quality: Excellent. CSF spaces: Basal cisterns are patent. Interval progression. There is increase in a chronic component of subdural hematoma in the left posterior temporoparietal region which has a maximum thickness currently of 10 mm. Additionally, there is now a subacute component to the subdural hematoma in the left temporal region, which now measures 5 mm. The ventricles are symmetric in size and shape. There is mild contralateral subfalcine shift measuring 5 mm. Brain: No intracranial bleeds or masses. There is cerebral volume loss for age, with resultant ventricular and sulcal prominence. There are moderate to severe periventricular and deep white matter chronic small vessel ischemic changes. There is intracranial internal carotid artery atherosclerosis. Dense bilateral distal vertebral artery atherosclerotic calcifications. Skull and face: Calvarium and visualized facial bones appear intact, without suspicious lesions. Sinuses: Visualized sinuses and mastoids are clear. IMPRESSION: 1. Interval increase in left subdural hematoma with increased in chronic subdural fluid more posteriorly, now measuring 10 mm in diameter, and development of a subacute component of the subdural hematoma, measuring 5 mm. 2. Mild contralateral shift. 3. Age-related volume loss and moderate to severe small vessel ischemic change. Dictated by: Oliver Valdivia M.D. on 03/24/2023 at 15:22 Approved by: Oliver Valdivia M.D. on 03/24/2023 at 15:26
--- NOTE | 2023-03-24 13:42 | ED.GENADULT ---
HPI - General Adult General Chief complaint: Syncope Stated complaint: syncope Time Seen by Provider: 03/24/23 13:37 History of Present Illness HPI narrative: 72-year-old male nonsmoker with history of nonischemic cardiomyopathy, defibrillator pacer, diabetes, hypertension, hyperlipidemia, seizures, peripheral neuropathy presents by EMS for evaluation of syncopal episode. He was added outpatient clinic visit to evaluate chronic shoulder pain and was at the desk checking in and the reporting alliance party states that he looked a bit confused and sick and bystanders helped ease him to the floor. There was no seizure-like activity or reported complete syncope but he was certainly quite confused and pale. On arrival EMS found initial blood pressure to be in the low 70s. He was given an IV and fluids in route and admittedly does feel better. He has an EKG noting the occasional PVC in mild bradycardia. He denies any recent illness such as fever chills. He is had no chest pain or shortness of breath. He denies nausea, vomiting or diarrhea. He is not take blood thinners and denies any dark and tarry stools. He denies any change in his medications or diet Related Data Home Medications Medication Instructions Recorded Confirmed levetiracetam 500 mg tablet 250 mg PO BID 03/14/23 03/14/23 Previous Rx's Medication Instructions Recorded nortriptyline 50 mg capsule See Rx Instructions PO HS #180 caps 04/30/21 Glucose: Test Strips #500 ea 08/27/21 blood-glucose meter (Blood Glucose #1 ea 08/27/21 Monitoring kit) acetaminophen 325 mg tablet 650 mg PO Q6HR PRN Fever/Mild Pain 05/18/22 (1-3) #60 tabs flash glucose scanning reader #1 ea 06/20/22 (FreeStyle Tara 14 Day [place]) flash glucose sensor (FreeStyle #1 ea 06/20/22 Tara 14 Day Sensor kit) blood-glucose meter,continuous #1 ea 06/26/22 (Dexcom G6 Mercury Recoverer) blood-glucose sensor (Dexcom G6 #3 ea 06/26/22 Sensor device) blood-glucose transmitter (Dexcom #1 ea 06/26/22 G6 Transmitter device) gabapentin 300 mg capsule 600 mg PO QPM #180 caps 09/17/22 tamsulosin 0.4 mg capsule 0.4 mg PO DAILY #90 caps 10/14/22 carvedilol 25 mg tablet 25 mg PO BID #180 tabs 10/16/22 magnesium oxide 400 mg (241.3 mg 400 mg PO BID #180 tabs 10/16/22 magnesium) tablet insulin NPH-regular 70-30 U-100 70 unit (0.7 mL) SUBCUT BID #200 mL 11/11/22 insulin 100 unit/mL subcutaneous pen (Humulin 70/30 U-100 KwikPen) amlodipine 5 mg tablet 5 mg PO DAILY #90 tabs 12/19/22 atorvastatin 20 mg tablet 20 mg PO DAILY #90 tabs 01/03/23 metformin 500 mg tablet,extended 1,000 mg PO BID #360 tabs 01/06/23 release 24 hr oxycodone 5 mg tablet 5 mg PO Q6H PRN pain #60 tabs 02/09/23 ivabradine 5 mg tablet 5 mg PO BID #180 tabs 02/28/23 omeprazole 40 mg capsule,delayed 40 mg PO BID #60 caps 02/28/23 release sacubitril 24 mg-valsartan 26 mg 1 tab PO BID #180 tabs 02/28/23 tablet doxycycline hyclate 100 mg tablet 100 mg PO BID #28 tabs 03/14/23 pen needle, diabetic 31 gauge x #100 ea 03/14/2303/18 (1st Tier Unifine Pentips) Allergies Allergy/AdvReac Type Severity Reaction Status Date / Time No Known Drug Allergies Allergy Verified 03/14/23 11:24 Review of Systems Review of Systems Narrative: GENERAL: See HPI HEENT: Denies sinus pain, ear pain, sore throat, difficulty swallowing, dizziness. RESPIRATORY: Denies dyspnea, cough, wheezing, hemoptysis, sputum. CARDIOVASCULAR: See HPI GASTROINTESTINAL: Denies nausea, vomiting, abdominal pain, diarrhea, constipation, melena. : Denies dysuria, frequency, incontinence, hematuria, urinary retention. MUSCULOSKELETAL: denies weakness, joint pain, or bony pain SKIN: Denies rash, skin lesions, or other NEUROLOGIC: See HPI PSYCHIATRIC: No concerning psychosocial issues. 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/mandaeism: Spiritism travel history: recent leisure activities: music, reading and other (Hiking.) Smoking Status: Never smoker quit status: quit date established second hand exposure: No alcohol intake: current substance use type: does not use Smoking Status: Never smoker alcohol intake frequency: a few times a week Alcohol type: hard liquor Substance Use Type: does not use Exam Narrative Exam Narrative: GENERAL: [72] year old patient appears older than stated age. Well-developed patient, in mild distress. Thin HEAD: Atraumatic. Normocephalic. EYES: Pupils equal round and reactive. Extraocular motions intact. No scleral icterus. No injection or drainage. ENT: Relatively dry mucous membranes, poor dentition throughout Nose without bleeding, purulent drainage. Throat without erythema, tonsillar hypertrophy or exudate. Airway patent. NECK: Trachea midline. Non tender CARDIOVASCULAR: Regular rate and rhythm without murmurs, gallops, or rubs. RESPIRATORY: Clear to auscultation. Breath sounds equal bilaterally. No wheezes, rales, or rhonchi. GASTROINTESTINAL: Abdomen soft, non-tender, nondistended. EXTREMITIES: No edema or joint tenderness. BACK: Nontender without deformity or crepitance. No flank tenderness. NEURO: AOx3. Sluggish but purposeful and accurate responses SKIN: No rash or erythema of visible areas Initial Vital Signs Initial Vital Signs: Vital Signs Temperature 97.6 F 03/24/23 13:39 Pulse Rate 60 03/24/23 13:39 Respiratory Rate 16 03/24/23 13:39 Blood Pressure 104/59 L 03/24/23 13:39 Pulse Oximetry 94 03/24/23 13:39 Oxygen Delivery Method Room Air 03/24/23 13:39 Procedures Intubation Time out performed: Yes sedative: Etomidate Mg Given: 23 paralytic: Rocuronium Mg Given: 46 Laryngoscope: other (glidescope) ET Tube Size: 7 ET Tube Uncuffed: Yes Tube Secured Depth (cm): 24 Tube Secured Location: teeth Tube Placement Confirmation: Visualized tube passing through cords, Equal breath sounds bilaterally, No breath sounds over epigastrium, Confirmation by capnometry and Chest Xray Patient Tolerated Procedure: Well Course Orders Ordered: Discontinued Medications Etomidate (Etomidate 2 Mg/Ml 10 Ml Vial) 23.1 mg 0.3 mg/kg (23.1 mg) IV NOW ONE Stop: 03/24/23 17:34 Last Admin: 03/24/23 17:53 Dose: 23.1 mg Documented By: KATYA Fentanyl (Fentanyl 100 Mcg/2 Ml Inj) 75 mcg 1 mcg/kg (75 mcg) IV NOW ONE Stop: 03/24/23 17:34 Last Admin: 03/24/23 17:53 Dose: 75 mcg Documented By: KATYA Sodium Chloride (Normal Saline 0.9%) 1,000 mls @ 1,000 mls/hr IV BOLUS ONE Stop: 03/24/23 14:36 Last Infusion: 03/24/23 15:59 Dose: 0 mls/hr Documented By: Admin: 03/24/23 14:40 Dose: 1,000 mls/hr Documented By: KATYA Magnesium Sulfate (Magnesium Sulfate) 2 gm in 50 mls @ 25 mls/hr IV NOW ONE Stop: 03/24/23 16:18 Last Infusion: 03/24/23 16:24 Dose: 0 mls/hr Documented By: KATYA Co-signed By: MELANIE Admin: 03/24/23 14:40 Dose: 25 mls/hr Documented By: KATYA Co-signed By: MELANIE Sodium Chloride (Normal Saline 0.9%) 1,000 mls @ 1,000 mls/hr IV BOLUS ONE Stop: 03/24/23 18:25 Last Infusion: 03/24/23 18:51 Dose: 0 mls/hr Documented By: Admin: 03/24/23 17:54 Dose: 1,000 mls/hr Documented By: KATYA Levetiracetam 1,000 mg/ Sodium (Chloride) 110 mls @ 440 mls/hr IV NOW ONE Stop: 03/24/23 17:27 Last Infusion: 03/24/23 18:09 Dose: 0 mls/hr Documented By: Admin: 03/24/23 17:54 Dose: 440 mls/hr Documented By: CTS Propofol (Propofol) 1,000 mg in 100 mls @ 2.313 mls/hr IV TITRATE REINA; Protocol Last Titration: 03/24/23 18:22 Dose: 0 mcg/kg/min, 0 mls/hr Documented By: Titration: 03/24/23 18:10 Dose: 10 mcg/kg/min, 4.627 mls/hr Documented By: Admin: 03/24/23 18:00 Dose: 5 mcg/kg/min, 2.313 mls/hr Documented By: CTS NOREPINEPHRINE BITARTRATE/D5W (Levophed) 4 mg in 250 mls @ 30 mls/hr IV TITRATE REINA; Protocol Last Titration: 03/24/23 19:00 Dose: 8 mcg/min, 30 mls/hr Documented By: Admin: 03/24/23 18:52 Dose: 8 mcg/min, 30 mls/hr Documented By: CTS Potassium Chloride (Potassium Chloride 20 Meq/15 Ml Udc) 40 meq PO NOW ONE Stop: 03/24/23 14:20 Last Admin: 03/24/23 14:46 Dose: 40 meq Documented By: CTS Rocuronium [place] (Rocuronium 50 Mg/5 Ml Inj) 46 mg 0.6 mg/kg (46 mg) IV NOW ONE Stop: 03/24/23 17:34 Last Admin: 03/24/23 17:53 Dose: 46 mg Documented By: CTS Reevaluation(s) Reevaluation #1: went to evaluate patient to discuss transfer he had alteration in mental status, staring up and to the right, repeat head CT ordered, Keppra 1g ordered. Will move to Trauma 1 Time: 17:30 Reevaluation #2: patient appears to be seizing, patient will be intubated for airway protection Consultations Consultation #1: discussed with Dr. Thibodeaux ([facility] Neurosurgery) requests patient be sent to [facility] Vital Signs Vital signs: Vital Signs - 8 hr 03/24/23 13:39 03/24/23 13:40 03/24/23 13:40 Temperature 97.6 F Pulse Rate 60 57 L Respiratory Rate 16 26 H Blood Pressure 104/59 L 101/56 L Pulse Oximetry 94 96 Oxygen Delivery Method Room Air 03/24/23 13:56 03/24/23 13:56 03/24/23 14:00 Temperature Pulse Rate 90 60 Respiratory Rate 34 H 24 Blood Pressure 108/57 L Pulse Oximetry 96 95 Oxygen Delivery Method 03/24/23 14:30 03/24/23 15:00 03/24/23 15:15 Temperature Pulse Rate 56 L 57 L 60 Respiratory Rate 22 19 20 Blood Pressure Pulse Oximetry 98 99 97 Oxygen Delivery Method 03/24/23 15:30 03/24/23 15:45 03/24/23 15:46 Temperature Pulse Rate 60 60 60 Respiratory Rate 23 21 22 Blood Pressure Pulse Oximetry 98 96 96 Oxygen Delivery Method 03/24/23 15:46 03/24/23 15:50 03/24/23 15:50 Temperature Pulse Rate 58 L Respiratory Rate 24 Blood Pressure 107/55 L 102/52 L Pulse Oximetry 94 Oxygen Delivery Method 03/24/23 16:00 03/24/23 16:00 03/24/23 16:10 Temperature Pulse Rate 57 L 58 L Respiratory Rate 25 H 26 H Blood Pressure 110/58 L Pulse Oximetry 94 91 Oxygen Delivery Method 03/24/23 16:10 03/24/23 16:15 03/24/23 16:20 Temperature Pulse Rate 59 L 58 L Respiratory Rate 25 H 24 Blood Pressure 94/53 L Pulse Oximetry 95 92 Oxygen Delivery Method 03/24/23 16:20 03/24/23 16:30 03/24/23 16:30 Temperature Pulse Rate 58 L Respiratory Rate 25 H Blood Pressure 93/52 L 99/55 L Pulse Oximetry 93 Oxygen Delivery Method 03/24/23 16:40 03/24/23 16:40 03/24/23 16:45 Temperature Pulse Rate 64 58 L Respiratory Rate 22 27 H Blood Pressure 127/60 Pulse Oximetry 95 95 Oxygen Delivery Method 03/24/23 16:50 03/24/23 16:50 03/24/23 16:53 Temperature Pulse Rate 57 L 59 L Respiratory Rate 27 H 24 Blood Pressure 96/50 L Pulse Oximetry 93 92 Oxygen Delivery Method 03/24/23 16:53 03/24/23 17:00 03/24/23 17:00 Temperature Pulse Rate 59 L Respiratory Rate 27 H Blood Pressure 95/50 L 99/56 L Pulse Oximetry 92 Oxygen Delivery Method 03/24/23 17:10 03/24/23 17:10 03/24/23 17:15 Temperature Pulse Rate 58 L 58 L Respiratory Rate 28 H 28 H Blood Pressure 100/57 L Pulse Oximetry 92 92 Oxygen Delivery Method 03/24/23 17:20 03/24/23 17:20 Temperature Pulse Rate 57 L Respiratory Rate 27 H Blood Pressure 95/54 L Pulse Oximetry 92 Oxygen Delivery Method Room Air Medical Decision Making Lab Data 03/24/23 13:35 03/24/23 13:35 Labs: Lab Results 03/24/23 03/24/23 03/24/23 Range/Units 13:35 13:35 13:35 WBC 5.8 (4.5-11.0) X10^3/uL RBC 4.45 L (4.5-5.9) X10^6/uL Hgb 13.7 (13.5-17.5) g/dL Hct 39.3 L (41-53) % MCV 88.3 (80-100) fL MCH 30.9 (26-34) PG MCHC 35.0 (30-36) % RDW 15.8 H (11.6-14.8) % Plt Count 141 L (150-400) X10^3/uL Neut % (Auto) 66.3 (50-75) % Lymph % (Auto) 24.4 L (25-40) % Bowman % (Auto) 7.6 (3-14) % Eos % (Auto) 1.3 L (2-4) % Baso % (Auto) 0.4 (0-2) % Neut # (Auto) 3800 (7845-2848) /uL Lymph # (Auto) 1400 (9466-7785) /uL Bowman # (Auto) 400 (0-900) /uL Eos # (Auto) 100 (0-450) /uL Baso # (Auto) 0 (0-100) /uL PT (10.1-12.7) SECONDS INR (0.9-1.3) Sodium 136 L (137-145) mmol/L Potassium 3.2 L (3.4-5.1) mmol/L Chloride 102 (98-107) mmol/L Carbon Dioxide 22 (22-32) mmol/L BUN 25 H (9-20) mg/dL Creatinine 0.87 (0.66-1.25) mg/dL Estimated GFR > 60 (>60) mL/min BUN/Creatinine Ratio 28.7 H (6-22) Glucose 99 (80-110) mg/dL Lactate 1.8 (0.7-2.1) mmol/L Calcium 8.5 (8.4-10.2) mg/dL Magnesium (1.6-2.3) mg/dL Total Bilirubin 1.1 (0.2-1.3) mg/dL AST 27 (17-59) IU/L ALT 21 (<50) IU/L Alkaline Phosphatase 93 (38-126) U/L Total Creatine Kinase (55-170) U/L CK-MB (CK-2) CK-MB (CK-2) Rel Index Troponin I (0.01-0.034) ng/mL NT-Pro-B Natriuret Pep (<125) pg/mL Total Protein 7.2 (6.3-8.2) g/dL Albumin 4.1 (3.5-5.0) g/dL Globulin 3.1 (1.7-4.1) g/dL Albumin/Globulin Ratio 1.3 (1.0-2.8) Lipase (23-300) U/L Ethyl Alcohol < 10 ( - 10) mg/dL SARS-CoV-2 (PCR) (Negative) 03/24/23 03/24/23 03/24/23 Range/Units 13:35 13:35 17:25 WBC (4.5-11.0) X10^3/uL RBC (4.5-5.9) X10^6/uL Hgb (13.5-17.5) g/dL Hct (41-53) % MCV (80-100) fL MCH (26-34) PG MCHC (30-36) % RDW (11.6-14.8) % Plt Count (150-400) X10^3/uL Neut % (Auto) (50-75) % Lymph % (Auto) (25-40) % Bowman % (Auto) (3-14) % Eos % (Auto) (2-4) % Baso % (Auto) (0-2) % Neut # (Auto) (1950-5494) /uL Lymph # (Auto) (7400-3978) /uL Bowman # (Auto) (0-900) /uL Eos # (Auto) (0-450) /uL Baso # (Auto) (0-100) /uL PT 15.0 H (10.1-12.7) SECONDS INR 1.3 (0.9-1.3) Sodium (137-145) mmol/L Potassium (3.4-5.1) mmol/L Chloride (98-107) mmol/L Carbon Dioxide (22-32) mmol/L BUN (9-20) mg/dL Creatinine (0.66-1.25) mg/dL Estimated GFR (>60) mL/min BUN/Creatinine Ratio (6-22) Glucose (80-110) mg/dL Lactate (0.7-2.1) mmol/L Calcium (8.4-10.2) mg/dL Magnesium 1.2 L (1.6-2.3) mg/dL Total Bilirubin (0.2-1.3) mg/dL AST (17-59) IU/L ALT (<50) IU/L Alkaline Phosphatase (38-126) U/L Total Creatine Kinase 58 (55-170) U/L CK-MB (CK-2) TNP CK-MB (CK-2) Rel Index TNP Troponin I < 0.012 (0.01-0.034) ng/mL NT-Pro-B Natriuret Pep 97 (<125) pg/mL Total Protein (6.3-8.2) g/dL Albumin (3.5-5.0) g/dL Globulin (1.7-4.1) g/dL Albumin/Globulin Ratio (1.0-2.8) Lipase 431 H (23-300) U/L Ethyl Alcohol ( - 10) mg/dL SARS-CoV-2 (PCR) Positive H (Negative) Point of Care Testing Glucose POC 117 Point of care testing: Point of Care Testing Glucose POC 117 MDM Narrative Medical decision making narrative: 72-year-old male with multiple chronic medical problems presents by EMS for evaluation of a syncopal or near syncopal event without any trauma as he was eased to the ground. He was initially found to be hypotensive and initial syncope workup included widespread labs which found subtle electrolyte abnormalities have been addressed. Head CT was ordered which noted acute on chronic subdural with midline shift. Images were pushed to [facility] and shortly after my discussion with Neurosurgery and our agreement on plan to transfer I presented to the patient's bedside at which point he suddenly became unresponsive with a blank stare upwards into the right, likely seizure activity, at this point ketamine was ordered, patient was taken to CT for a repeat and he was taken to our Trauma [place] where he was intubated for airway protection. First pass success with placement of endotracheal tube and use of fentanyl, etomidate and rocuronium with ongoing sedation they propofol drip. Patient is subsequently found to be COVID positive, these updates related to both [facility] and [facility] as well as patient's primary care provider Dr. Guzman. Critical Care Time Critical Care Time Critical Care Time: Yes Total Critical Care Time: 45 Attestation: The high probability of a clinically significant, sudden or life threatening deterioration of the [[place]] system(s) required my full and direct attention, intervention and personal management. The aggregate critical care time was [45] minutes. This time is in addition to time spent performing reported procedures but includes the following: [x] Data Review and interpretation [x] Patient assessment and monitoring of vital signs [x] Documentation [x] Medication orders and management Discharge Plan Departure Patient Disposition: [facility] Clinical Impression: Acute subdural hematoma, Acute alteration in mental status, Seizure, COVID-19, Hypomagnesemia, Acute hypokalemia, Syncope and collapse Prescriptions: No Action nortriptyline 50 mg capsule See Rx Instructions PO HS Qty: 180 3RF Dose Instruction: 1-2 caps PO HS; Rx Instructions: 1-2 caps PO HS; tamsulosin 0.4 mg capsule 0.4 mg PO DAILY Qty: 90 3RF Humulin 70/30 U-100 KwikPen 100 unit/mL (70-30) insulin pen 70 unit SUBCUT BID Qty: 200 10RF Rx Instructions: 85 units twice daily, SUBCUT ; amlodipine 5 mg tablet 5 mg PO DAILY Qty: 90 1RF atorvastatin 20 mg tablet 20 mg PO DAILY Qty: 90 1RF metformin 500 mg tablet extended release 24 hr 1,000 mg PO BID Qty: 360 3RF oxycodone 5 mg tablet 5 mg PO Q6H PRN (Reason: pain) Qty: 60 0RF (DME) FreeStyle Tara 14 Day [place] Misc See Rx Instructions .ROUTE .MEDSUPPLY Qty: 1 0RF Rx Instructions: USE FOR CONTINUOUS BLOOD GLUCOSE MONITORING. REPLACE EVERY YEAR. (DME) FreeStyle Tara 14 Day Sensor Kit See Rx Instructions .ROUTE .MEDSUPPLY Qty: 1 12RF Rx Instructions: USE FOR CONTINUOUS GLUCOSE MONITORING. REPLACE EVERY 30 DAYS. (DME) Dexcom G6 Sensor Device See Rx Instructions .Route Qty: 3 3RF Rx Instructions: As directed (DME) Dexcom G6 Mercury Recoverer Misc See Rx Instructions .Route Qty: 1 0RF Rx Instructions: As directed ([facility] [place]) Dexcom G6 Transmitter Device See Rx Instructions .Route Qty: 1 0RF Rx Instructions: As directed levetiracetam 500 mg tablet 250 mg PO BID Rx Instructions: 250 PO BID for 2 weeks, then increase to 500mg BID. doxycycline hyclate 100 mg tablet 100 mg PO BID Qty: 28 1RF (DME) pen needle, diabetic [1st Tier Unifine Pentips] 31 gauge x 5/16 needle See Rx Instructions .Route Qty: 100 3RF Rx Instructions: Use to test blood sugars QID or as prescribed by PCP (DME) blood-glucose meter [Blood Glucose Monitoring] Kit See Rx Instructions .ROUTE .MEDSUPPLY Qty: 1 0RF Rx Instructions: As directed (DME) Glucose: Test Strips 0 .Route .MEDSUPPLY Qty: 500 11RF Rx Instructions: Use as directed to check blood sugar up to 4 times daily gabapentin 300 mg capsule 600 mg PO QPM Qty: 180 3RF Rx Instructions: patient requests this w/ dinner instead of HS magnesium oxide 400 mg (241.3 mg magnesium) tablet 400 mg PO BID Qty: 180 3RF carvedilol 25 mg tablet 25 mg PO BID Qty: 180 3RF Rx Instructions: must administer with a meal/food acetaminophen 325 mg Tablet 650 mg PO Q6HR PRN (Reason: Fever/Mild Pain (1-3)) Qty: 60 0RF ivabradine 5 mg Tablet 5 mg PO BID Qty: 180 3RF sacubitril-valsartan 24-26 mg Tablet 1 tab PO BID Qty: 180 3RF omeprazole 40 mg capsule,delayed release(DR/EC) 40 mg PO BID Qty: 60 3RF Referrals: Salvador Guzman MD [Primary Care Provider] -
[2023-03-24 13:50] LABS: Add Manual Diff / Slide Review NO; Basophils Absolute Auto 0 /uL (0-100); Basophils Percent Auto 0.4 % (0-2); Eosinophils Absolute Auto 100 /uL (0-450); Eosinophils Percent Auto 1.3 % (2-4); Hematocrit 39.3 % (41-53); Hemoglobin 13.7 g/dL (13.5-17.5); Lymphocytes Absolute Auto 1400 /uL (1100-4500); Lymphocytes Percent Auto 24.4 % (25-40); Mean Corpuscular Hemoglobin 30.9 PG (26-34); Mean Corpuscular Volume 88.3 fL (80-100); Monocytes Absolute Auto 400 /uL (0-900); Monocytes Percent Auto 7.6 % (3-14); Neutrophils Absolute Auto 3800 /uL (1500-7000); Neutrophils Percent Auto 66.3 % (50-75); Platelet Count 141 X10^3/uL (150-400); Red Blood Cell Count 4.45 X10^6/uL (4.5-5.9); Red Cell Distribution Width 15.8 % (11.6-14.8); White Blood Cell Count 5.8 X10^3/uL (4.5-11.0)
[2023-03-24 13:52] LABS: INR 1.3 (0.9-1.3)
[2023-03-24 14:08] LABS: Alanine Aminotransferase 21 IU/L (<50); Albumin 4.1 g/dL (3.5-5.0); Albumin Globulin Ratio 1.3 (1.0-2.8); Alkaline Phosphatase 93 U/L (38-126); Aspartate Aminotransferase 27 IU/L (17-59); BUN Creatinine Ratio 28.7 (6-22); Bilirubin Total 1.1 mg/dL (0.2-1.3); Blood Urea Nitrogen 25 mg/dL (9-20); Calcium 8.5 mg/dL (8.4-10.2); Carbon Dioxide 22 mmol/L (22-32); Chloride 102 mmol/L (98-107); Creatine Kinase 58 U/L (55-170); Estimated Glomerular Filt Rate > 60 mL/min (>60); Ethanol (ETOH) < 10 mg/dL; Globulin 3.1 g/dL (1.7-4.1); Glucose 99 mg/dL (80-110); HEMOLYSIS < 15 (0-50); Lactate (Lactic Acid) 1.8 mmol/L (0.7-2.1); Lipase 431 U/L (23-300); Magnesium 1.2 mg/dL (1.6-2.3); Potassium 3.2 mmol/L (3.4-5.1); Sodium 136 mmol/L (137-145); Total Protein 7.2 g/dL (6.3-8.2)
[2023-03-24 14:19] LABS: NT-proBNP (BNP-Adult 18+) 97 pg/mL (<125); Troponin I < 0.012 ng/mL (0.01-0.034)
[2023-03-24] MEDS: MAGNESIUM SULFATE 2 GM/50 ML PIGGYBACK IV (14:40)
[2023-03-24] MEDS: SODIUM CHLORIDE 0.9% 1,000 ML 1000 ML IV ×2 (14:40→17:54)
[2023-03-24] MEDS: POTASSIUM CHLORIDE 20 MEQ/15 ML UDC 40 MEQ PO (14:46)
--- NOTE | 2023-03-24 15:23 | PC.NURSE ---
Pacemaker [facility]. Interrogated and report given to Dr Ng.
--- NOTE | 2023-03-24 17:26 | DI.CT.S_ITS ---
PROCEDURE: CT HEAD/BRAIN WO CON INDICATIONS: change in mental status TECHNIQUE: Noncontrast 4.5 mm thick angled axial sections acquired from the foramen magnum to the vertex, with coronal and sagittal reformats. For radiation dose reduction, the following was used: automated exposure control, adjustment of mA and/or kV according to patient size. COMPARISON: [facility], CT, CT HEAD/BRAIN WO CON, 03/24/2023, 13:54. FINDINGS: Image quality: Good CSF spaces: Basal cisterns are patent. Lateral ventricles are symmetric. Local sulcal effacement adjacent to the left subdural hematoma. Volume: Vascular calcifications. Periventricular white matter disease is commonly seen with chronic microangiopathy. Volume loss is present. These findings are moderate Brain: Similar lacunar infarct. Mixed density left subdural hematoma, mostly with older hypoattenuating fluid measures a thickness of 9 mm (coronal image /34). This is similar to immediate prior imaging. Craniofacial structures: No displaced fracture. Sinuses are clear. Orbits are intact. IMPRESSION: Similar thickness of left mixed density subdural hematoma compared to same day CT from 4 hours ago. There is local sulcal effacement. Basal cisterns are patent at this time. Dictated by: Miguelito Liriano M.D. on 03/24/2023 at 17:49 Approved by: Miguelito Liriano M.D. on 03/24/2023 at 17:52
[2023-03-24 17:42] LABS: COVID19 -Nasal RAPID POSITIVE (Negative)
[2023-03-24] MEDS: ETOMIDATE 2 MG/ML 10 ML VIAL 23.1 MG IV (17:53)
[2023-03-24] MEDS: ROCURONIUM 50 MG/5 ML INJ 46 MG IV (17:53)
[2023-03-24] MEDS: fentaNYL 100 MCG/2 ML INJ 75 MCG IV (17:53)
[2023-03-24] MEDS: levETIRAcetam 1,000 MG in SODIUM CHLORIDE 0.9% 100 ML 440 MG IV (17:54)
--- NOTE | 2023-03-24 17:55 | DI.RAD.S_ITS ---
PROCEDURE: XR CHEST 1V INDICATIONS: tube placement TECHNIQUE: One view of the chest was acquired. COMPARISON: [facility], CR, XR CHEST 1V, 03/24/2023, 13:36. [facility], CR, XR CHEST 1V, 02/25/2023, 19:13. FINDINGS: Surgical changes and devices: ET tube terminates in appropriate position. Left chest wall pulse generator with defibrillator lead in place. Enteric tube terminates in the stomach. Lungs and pleura: Low lung volumes. No dense consolidation or pleural effusion. Mediastinum: Mediastinal contours appear normal. Heart size is normal. Bones and chest wall: No suspicious bony lesions. Overlying soft tissues appear unremarkable. IMPRESSION: ETT projects over the trachea. Enteric tube terminates in the stomach. Dictated by: Miguelito Liriano M.D. on 03/24/2023 at 18:24 Approved by: Miguelito Liriano M.D. on 03/24/2023 at 18:25
[2023-03-24] MEDS: propofoL 1,000 MG/100 ML VIAL 2.313 MG IV (18:00)
[2023-03-24] MEDS: NOREPINEPHRINE BITARTRATE/D5W 4 MG/250 ML PLAST..BAG 30 MG IV (18:52)
--- NOTE | 2023-03-24 19:11 | PC.NURSE ---
BP trending downward into 90's systolic. This RN noted at 1730 a change in mental status of patient. Eyes were wide open, not blinking, sluggish corneal reflexes, unable to follow simple commands. Appeared to be having absence seizure like activity. Noted to have loss of bladder. Dr Ng at bedside. Order for repeat stat head CT. Pt taken to and from head CT and returned to room 1. Room set up for emergent intubation. RT called to bedside. SPO2 remained >94% RA. BP 100/systolic and HR 50's. Lab called with COVID+ result. Precautions taken. Pt starting with snoring RR. RT pre-oxygenating with jaw thrust maneuver. Pt received RSI medications and pt was successfully intubated at 1800 with 7.0 ETT 26 at lip. +bilateral breath sounds, + color change, ETCO2 28. HOB elevated 30 degrees. Vent setting 500/30/16/5, ETCO2 noted to be 22 and RR rate decreased to 12bpm. 18 F OG placed successfully and XR at bedside to confirm tube and OG placement. [place] ETA 1845. 16F temp love placed draining pink clear urine. Propofol infusion started. BP decreased to 70's/systolic and Dr Ng at bedside and administering push dose epi. [place] in department at [address] Decision by SARATH and Dr Ng to hang levophed. Levophed pulled and scanned and started at bedside by SARATH. Report given to SARATH RN. Care relinquished at 1900. Pt's wallet, shoes, dentures given to friend/roommate
--- NOTE | 2023-03-26 10:25 | PC.NURSE ---
Sharron Rn took report on positive blood culture. Dr. Lan aware. results faxed to [facility].
== END 2023-03-24 19:00 | disposition short-term general hospital (02) ==
PROVIDERS: Emergency Provider Emergency Medicine; PCP Internal Medicine
DX: S06.5X0A Traumatic subdural hemorrhage without loss of consciousness, initial encounter (principal); U07.1 COVID-19; E83.42 Hypomagnesemia; E87.6 Hypokalemia; R41.82 Altered mental status, unspecified; R56.9 Unspecified convulsions; Z79.899 Other long term (current) drug therapy; R55 Syncope and collapse
CPT/HCPCS: 31500; 36415; 70450; 71045; 80053; 80320; 82550; 83605; 83690; 83735; 83880; 84484; 85025; 85610; 87040; 87077; 87147; 87186; 87635; 93005; 93010; 94799; 96361; 96365; 96366; 96375; 99285; 99291; 99292; C9803; J1953; J2704; J3010; J3475

== ENCOUNTER → 2023-04-07 14:07 | Outpatient (CLI) | payer MEDICARE, SELFPAY ==
[2023-02-25 22:37] VITALS: BMI 26.0
[2023-03-24 18:11] VITALS: PULSE 55; RESP 16; O2SAT 100
== END ==
PROVIDERS: PCP Internal Medicine; Referring Provider Internal Medicine; Visit Provider Surgery
DX: S80.811A Abrasion, right lower leg, initial encounter (principal); E11.628 Type 2 diabetes mellitus with other skin complications
CPT/HCPCS: 97597; 99203; 99213

== ENCOUNTER → 2023-04-14 14:53 | Outpatient (CLI) | payer MEDICARE, SELFPAY ==
[2023-02-25 22:37] VITALS: BMI 26.0
[2023-03-24 18:11] VITALS: PULSE 55; RESP 16; O2SAT 100
== END ==
PROVIDERS: PCP Internal Medicine; Referring Provider Internal Medicine; Visit Provider Surgery
DX: S80.811A Abrasion, right lower leg, initial encounter (principal); G40.89 Other seizures
CPT/HCPCS: 99213

== ENCOUNTER → 2023-05-28 09:02 | Outpatient (CLI) | payer MEDICARE, SELFPAY ==
[2023-02-25 22:37] VITALS: BMI 26.0
[2023-03-24 18:11] VITALS: PULSE 55; RESP 16; O2SAT 100
[2023-05-28 10:20] LABS: Add Manual Diff / Slide Review NO; Basophils Absolute Auto 0 /uL (0-100); Basophils Percent Auto 0.3 % (0-2); Eosinophils Absolute Auto 200 /uL (0-450); Eosinophils Percent Auto 4.2 % (2-4); Hematocrit 37.3 % (41-53); Hemoglobin 12.9 g/dL (13.5-17.5); Lymphocytes Absolute Auto 1200 /uL (1100-4500); Lymphocytes Percent Auto 29.4 % (25-40); Mean Corpuscular HGB Conc 34.6 % (30-36); Mean Corpuscular Hemoglobin 32.5 PG (26-34); Monocytes Absolute Auto 300 /uL (0-900); Monocytes Percent Auto 7.4 % (3-14); Neutrophils Absolute Auto 2500 /uL (1500-7000); Neutrophils Percent Auto 58.7 % (50-75); Platelet Count 123 X10^3/uL (150-400); Red Blood Cell Count 3.96 X10^6/uL (4.5-5.9); Red Cell Distribution Width 14.2 % (11.6-14.8); White Blood Cell Count 4.2 X10^3/uL (4.5-11.0)
[2023-05-28 10:39] LABS: BUN Creatinine Ratio 19.7 (6-22); Blood Urea Nitrogen 13 mg/dL (9-20); Calcium 8.4 mg/dL (8.4-10.2); Carbon Dioxide 24 mmol/L (22-32); Chloride 104 mmol/L (98-107); Estimated Glomerular Filt Rate > 60 mL/min (>60); Glucose 162 mg/dL (80-110); HEMOLYSIS < 15 (0-50); Potassium 3.9 mmol/L (3.4-5.1); Sodium 137 mmol/L (137-145)
[2023-05-29 07:43] LABS: x Labcorp Estim. Avg Glu (eAG) 163 mg/dL (.); x Labcorp Hemoglobin A1c 7.3 % (4.8-5.6)
== END ==
PROVIDERS: PCP Internal Medicine; Referring Provider Orthopaedic Surgery Orthopaedic Surgery of the Spine; Visit Provider Orthopaedic Surgery Orthopaedic Surgery of the Spine
DX: M54.00 Panniculitis affecting regions of neck and back, site unspecified (principal); E11.9 Type 2 diabetes mellitus without complications; Z01.812 Encounter for preprocedural laboratory examination
CPT/HCPCS: 36415; 80048; 83036; 85025

== ENCOUNTER 2023-07-03 12:42 | Inpatient (IN) | payer MEDICARE, SELFPAY ==
[2023-02-25 22:37] VITALS: BMI 26.0
[2023-03-24 18:11] VITALS: PULSE 55; RESP 16; O2SAT 100
[2023-06-17 09:06] VITALS: BMI 27.2
[2023-07-03] VITALS (14 sets, daily range): BP systolic 128–182; BP diastolic 47–107; PULSE 53–74; RESP 10–19; TEMP 35.8–36.3; O2SAT 90–98; BMI 27.2
[2023-07-03] MEDS: LACTATED RINGERS 1,000 ML 42 ML IV ×2 (12:53→17:32)
[2023-07-03] MEDS: ACETAMINOPHEN 325 MG TABLET 975 MG PO (12:54)
[2023-07-03] MEDS: GABAPENTIN 300 MG CAPSULE PO ×2 (12:55→22:00)
--- NOTE | 2023-07-03 14:36 | PM.PREOP ---
Pre-operative Note COVID-19 Criteria for continued procedure: Expected advancement of disease process, Possibility delay results in more complex future surgery or treatment, Increased loss of function, Continuing or worsening of significant or severe pain, Deterioration of the patient's condition or overall health and Delay expected to result in less-positive ultimate med/surg outcome Interval Note History & Physical reviewed/Exam performed by Physician: Yes Changes to H&P: No
--- NOTE | 2023-07-03 15:03 | SUR.OPER ---
Prone on spine table, head in foam head support, padded chest and pelvic supports, gel pad at knees, lower legs supported by pillows; nipples, genitalia and toes free of pressure, arms secured on foam padded arm boards at <90 degrees abduction. Tape over blanket at thigh secured to table.
--- NOTE | 2023-07-03 15:20 | P.OP_ITS ---
Operative Date/Time/Diagnoses Date of procedure: 07/03/23 Time of procedure: 15:20 Pre-op diagnosis: 1. L4-5 spinal stenosis 2. Lumbar radiculopathy Post-op diagnosis: same Procedure & Clinicians Procedure: 1. L4-5 Postero-lateral and posterior interbody fusion 2. L4-5 interbody cage placement. 3. L4-5 decompressive laminectomy with bilateral facetecomies 4. L4-5 Posterior non-segmental instrumentation 5. [place] of bone marrow from iliac crest 6. Utilization of microsurgical technique and operating microscope Same procedure as scheduled: Yes Indications: Patient has been having chronic back pain and worsening lumbar radiculopathy. Patient failed multiple conservative management with worsening pain weakness and numbness in his lower extremity. Patient has been having difficulty performing activity of daily living. After discussing risks benefits of treatment options, patient elected proceed with surgery. Surgeon: Edmar Hanson Workshop Manager: Natlay Honeycutt Click Yes if Unassisted: No Anesthesia Type: General Operative Notes Closure Type: primary Specimen(s): none sent Estimated Blood Loss (mL): 50 Procedure in detail: Patient was seen in the preoperative area. Risks and benefits of the surgery was discussed with the patient. Informed consent was obtained from the patient and placed in the chart. Surgical site was marked. Patient was taken to the operative room. General anesthesia was administered. Prophylactic antibiotic was given to the patient less than 30 min before the incision was made. Patient was placed into a prone position on the Mehul table. Patient's back was then prepped and draped in the sterile fashion. Time-out was performed at this time. Using AP and lateral C-arm imaging the interval between L4-5 was identified and marked on patient's back. A 2 inch incision 2 in from midline was made on the left side first. The fascia was incised in line with skin incision. Globus MARS retractors was placed inside the incision and docked onto the L4 lamina. Using microsurgical technique and operating microscope, a L4 laminectomy and L4-5 facetectomy was performed using a Kerrison rongeur. The laminectomy and facetectomy was performed in order to decompress patient's cauda equina as well as the nerve roots exiting at the L4-5 level. The disc space at L4-5 was alicja ntified. And a total diskectomy was performed at L4-5 level. The endplates were decorticated using a rasp and shaver. The total diskectomy and decortication was performed at L4-5 level in order to to accomplish a L4-5 fusion. The local bone from the laminectomy and facetectomy was saved for local bone grafting. After the total diskectomy and decortication was completed, Trifecta bone graft material was combined with local bone that was harvested earlier. At this time, a separate skin is incision was made over the iliac crest. A Jamshidi needle was inserted into the iliac crest through a separate skin incision. 5 cc of bone marrow aspiration was obtained through the separate skin incision using a Jamshidi needle from the iliac crest. The bone marrow aspiration was combined with local bone and the Trifecta bone grafting material. The bone grafting material was placed into the L4-5 interbody space along with a expandable cage. The cage was expanded to its maximum height using the torque limiting screwdriver. At this time a mirror image incision was made on the right side. The fascia was incised in line with the skin incision. Globus MARS retractor was inserted and docked onto the L4-5 posterolateral gutter. Using the power drill, posterior- lateral decortication was performed at L4-5 level until bleeding cortical bone was identified. The remaining bone grafting material was placed into the L4-5 posterior lateral gutter he order to accomplish posterolateral fusion at the L4- 5 level. Using the double C-arm technique, pedicle screws were placed into the L4-5 pedicles bilaterally. This was done by placing the Jamshidi needle into the pedicles, then placing the guidewires over the Jamshidi needle, and finally placing the cannulated screws over the guidewires bilaterally. After the pedicle screws were placed, 2 titanium rods was locked into the heads of the pedicle screws using locking caps and torque limiting screwdriver. After all the hardware was placed, and confirmed with AP and lateral C-arm imaging, the wound was then irrigated with sterile normal saline and packed with Ray-Ernesto gauze for 3 min to accomplish hemostasis. After the gauze was removed the deep fascia was closed with #1 Vicryl suture. The subcutaneous layer was closed with 2-0 Vicryl. The skin was closed with skin chato. Patient tolerated the procedure well. There were no complications. Complications: none Post-operative Condition: stable Disposition: PACU Plan for aftercare: Admit to inpatient hospital
[2023-07-03] MEDS: CEFAZOLIN 2 GM/100 ML PREMIX 100 ML IV ×2 (15:31→22:45)
[2023-07-03] MEDS: BUPIVACAINE 0.25% (PF) 30 ML, EPINEPHrine 0.15 MG INJ (15:56)
[2023-07-03] MEDS: BUPIVACAINE LIPOSOME 266 MG/20 ML VIAL INJ (17:17)
--- NOTE | 2023-07-03 17:19 | DI.RAD.S_ITS ---
PROCEDURE: XR LUMBAR SPINE 2-3V INDICATIONS: L4-5 TLIF TECHNIQUE: 2 fluoroscopic spot films were obtained intraoperatively COMPARISON: None. FINDINGS: Low resolution intraoperative spot films shows L4-5 interbody graft placement and associated posterior tiffany and screw instrumentation all in good position IMPRESSION: Fluoroscopic guidance Approved by: Tae Flores M.D. on 07/03/2023 at 18:04
[2023-07-03] MEDS: hydrOXYzine pamoate 25 MG CAPSULE PO (17:33)
[2023-07-03] MEDS: OXYCODONE IR 5 MG TABLET PO ×2 (17:33→18:05)
[2023-07-03] MEDS: HYDROMORPHONE 1 MG INJ IV ×2 (17:33→17:39)
[2023-07-03] MEDS: HYDROMORPHONE 0.5 MG INJ IV ×2 (18:45→22:55)
[2023-07-03] MEDS: carvediloL 12.5 MG TABLET 25 MG PO (18:48)
--- NOTE | 2023-07-03 19:03 | PC.NURSE ---
Day shift: Notified MD Hanson regarding high BP. 182/105. Margie ok'ed giving carvedilol early. Gave at 1845 with 0.5mg IV dilaudid for pain. Pt rating pain 05/12. Dressing CDI. BG checked - 177. Pt reports he wants to eat this evening. Notified pharmacy to request insulin dose for this evening to cover BG and meal. Gave report to night LURDES Helms regarding BP, BG + insulin, pacer, history of seizures, and questionable history of CHF. This RN was told from [facility] that patient has history of CHF. Not listed in chart. LRUDES Helms said she would follow up. Will continue to monitor.
[2023-07-03] MEDS: LACTATED RINGERS 1,000 ML 125 ML IV (19:15)
[2023-07-03] MEDS: METOPROLOL TARTRATE 5 MG/5 ML INJ IV (20:15)
[2023-07-03] MEDS: INSULIN LISPRO 100 UNIT/ML 3ML VIAL SUBCUT (22:00)
[2023-07-03] MEDS: NORTRIPTYLINE HCL 25 MG CAPSULE 50 MG PO (22:00)
[2023-07-03] MEDS: METFORMIN XR 500 MG TABLET 1000 MG PO (22:00)
[2023-07-03] MEDS: levETIRAcetam 250 MG TABLET PO (22:00)
[2023-07-03] MEDS: PANTOPRAZOLE DR 40 MG TABLET PO (22:00)
[2023-07-03] MEDS: MAGNESIUM OXIDE 400 MG TABLET PO (22:00)
[2023-07-03] MEDS: SENNOSIDES 8.6 MG TABLET 17.2 MG PO (22:00)
[2023-07-03] MEDS: OXYCODONE IR 10 MG TABLET PO (22:11)
[2023-07-03] MEDS: DOCUSATE 100 MG CAPSULE PO (22:21)
[2023-07-03] MEDS: INSULIN GLARGINE 100 UNIT/ML 3ML PEN 20 UNIT SUBCUT (22:25)
[2023-07-04] MEDS: OXYCODONE IR 10 MG TABLET PO ×4 (02:55→15:33)
[2023-07-04] MEDS: hydrOXYzine pamoate 25 MG CAPSULE PO (02:55)
[2023-07-04 03:04] VITALS: BP 151/86; PULSE 67; RESP 16; TEMP 36.1; O2SAT 94
--- NOTE | 2023-07-04 05:18 | PC.NURSE ---
pt bladder scanned for 1000 ml. pt was unable to void. Using a 14 fr coude tip catherter this Rn performed a straight cath for 1100 ml clear marjorie UOP . no trauma or pain experienced by patient who tolerated procedure well.
--- NOTE | 2023-07-04 06:37 | P.DS_ITS ---
History of Present Illness History of Present Illness Date Patient Seen: 07/04/23 Time Patient Seen: 06:37 Chief complaint: Lumbar TLIF Narrative: Operative Date/Time/Diagnoses Date of procedure: 07/03/23 Time of procedure: 15:20 Pre-op diagnosis: 1. L4-5 spinal stenosis 2. Lumbar radiculopathy Post-op diagnosis: same Procedure & Clinicians Procedure: 1. L4-5 Postero-lateral and posterior interbody fusion 2. L4-5 interbody cage placement. 3. L4-5 decompressive laminectomy with bilateral facetecomies 4. L4-5 Posterior non-segmental instrumentation 5. [place] of bone marrow from iliac crest 6. Utilization of microsurgical technique and operating microscope Same procedure as scheduled: Yes Indications: Patient has been having chronic back pain and worsening lumbar radiculopathy. Patient failed multiple conservative management with worsening pain weakness and numbness in his lower extremity.? Patient has been having difficulty performing activity of daily living.? After discussing risks benefits of treatment options, patient elected proceed with surgery. Surgeon: Edmar Hanson Business Manager College Or University: Nataly Honeycutt Click Yes if Unassisted: No Anesthesia Type: General Operative Notes Closure Type: primary Specimen(s): none sent Estimated Blood Loss (mL): 50 Discharge Providers Provider Date of admission: 07/03/23 12:42 Discharge Date: 07/04/23 Primary care physician: Salvador Guzman MD Consults: 07/03/23 18:16 Consult to Occupational Therapy Evaluate & Treat Comment: Physician Instructions: Evaluate and treat Consult to Physical Therapy Evaluate & Treat Comment: Physician Instructions: Evaluate and Treat Discharge provider: Nataly Honeycutt PA-C Summary Hospital Course Discharge Diagnosis: L4-5 spinal stenosis, Lumbar radiculopathy; s/p lumbar fusion Hospital Course: Mr Cisneros's hospital course was unremarkable. On the morning of POD# 1, he was feeling well and wanted to go home. He had to be catheterized overnight d/t urinary retention; this has been a problem for him in the past and he is on tamsulosin chronically. He is eating without difficulty. He had not yet been evaluated by PT. Exam Vital Signs (past 8 hours): - 07/03/23 23:21 07/04/23 03:04 07/04/23 04:16 Temperature 96.5 F L 96.9 F L Pulse Rate 65 67 Respiratory Rate 17 16 Blood Pressure 161/81 H 151/86 H Pulse Oximetry 97 94 Oxygen Delivery Method Nasal Cannula Oxygen Flow Rate 2 2 2 Oxygen Delivery Method Nasal Cannula Oxygen Flow Rate 2 Narrative Exam Narrative: 5/5 strength in hip flexors, quadriceps, hamstrings, DF, PF, EHL bilaterally. Sensation to light touch intact in BLE, calves soft and compressible. Dressing placed intraoperatively is CDI. Highest glucose since admission was 232. 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 F/u in office in 2 weeks as scheduled. Discharge Plan Discharge Plan Patient Disposition: Home Discharge orders & Medications Prescriptions: New oxycodone 5 mg tablet 5 mg PO Q4-6H PRN (Reason: pain, moderate) Qty: 60 0RF docusate sodium 100 mg Capsule 100 mg PO BID PRN (Reason: constipation) Qty: 60 1RF hydroxyzine pamoate 25 mg Capsule 25 mg PO Q4HR PRN (Reason: muscle spasm) Qty: 60 0RF Continued nortriptyline 50 mg capsule See Rx Instructions PO HS Qty: 180 3RF Dose Instruction: 1-2 caps PO HS; Rx Instructions: 1-2 caps PO HS; tamsulosin 0.4 mg capsule 0.4 mg PO DAILY Qty: 90 3RF metformin 500 mg tablet extended release 24 hr 1,000 mg PO BID Qty: 360 3RF (DME) pen needle, diabetic [1st Tier Unifine Pentips] 31 gauge x 5/16 needle See Rx Instructions .Route Qty: 100 3RF Rx Instructions: Use to administer insulin bid and as necessary atorvastatin 20 mg tablet 20 mg PO DAILY Qty: 90 3RF omeprazole 40 mg capsule,delayed release(DR/EC) 40 mg PO BID Qty: 60 3RF (DME) FreeStyle Tara 14 Day [place] Misc See Rx Instructions .ROUTE .MEDSUPPLY Qty: 1 0RF Rx Instructions: USE FOR CONTINUOUS BLOOD GLUCOSE MONITORING. REPLACE EVERY YEAR. (DME) FreeStyle Tara 14 Day Sensor Kit See Rx Instructions .ROUTE .MEDSUPPLY Qty: 1 12RF Rx Instructions: USE FOR CONTINUOUS GLUCOSE MONITORING. REPLACE EVERY 30 DAYS. (DME) Dexcom G6 Sensor Device See Rx Instructions .Route Qty: 3 3RF Rx Instructions: As directed (DME) Dexcom G6 Informatics Application Analyst Misc See Rx Instructions .Route Qty: 1 0RF Rx Instructions: As directed (DME) Dexcom G6 Transmitter Device See Rx Instructions .Route Qty: 1 0RF Rx Instructions: As directed levetiracetam 500 mg tablet 250 mg PO BID Rx Instructions: 250 PO BID for 2 weeks, then increase to 500mg BID. Humulin 70/30 U-100 KwikPen 100 unit/mL (70-30) insulin pen 25 unit SUBCUT BID Qty: 200 10RF Patient Comments: pt took 12 units this morning for surgery (only 1/2 his dose as instructed) Rx Instructions: 25 units twice daily, SUBCUT ; (DME) blood-glucose meter [Blood Glucose Monitoring] Kit See Rx Instructions .ROUTE .MEDSUPPLY Qty: 1 0RF Rx Instructions: As directed (DME) Glucose: Test Strips 0 .Route .MEDSUPPLY Qty: 500 11RF Rx Instructions: Use as directed to check blood sugar up to 4 times daily oxycodone 5 mg tablet 5 mg PO Q6H PRN (Reason: pain) Qty: 60 0RF magnesium oxide 400 mg (241.3 mg magnesium) tablet 400 mg PO BID Qty: 180 3RF carvedilol 25 mg tablet 25 mg PO BID Qty: 180 3RF Rx Instructions: must administer with a meal/food gabapentin 300 mg capsule 300 mg PO BID Rx Instructions: patient requests this w/ dinner instead of HS acetaminophen 325 mg Tablet 650 mg PO Q6HR PRN (Reason: Fever/Mild Pain (1-3)) Qty: 60 0RF ivabradine 5 mg Tablet 5 mg PO BID Qty: 180 3RF sacubitril-valsartan 24-26 mg Tablet 1 tab PO BID Qty: 180 3RF Follow up/Referrals: Edmar Hanson MD [Physician] - As previously scheduled (Follow up with Antony Yun PA-C, on 07/16/2023 @ 3:10 pm at [facility] in [place].) Salvador Guzman MD [Primary Care Provider] - Diet/Activity/Treatments Diet: Diet as Tolerated Activity: No deep bending or twisting at the waist. No lifting more than 10 pounds. Cold/Heat Therapy: Heating pad to low back as needed for pain. Skin/Wound/Dressing Care Report to your healthcare provider any signs of infection, such as:: chills, fever, night sweats, unusual drainage and unusual redness Dressing: May shower. Keep dressing as dry as possible. If dressing becomes wet or dirty, may remove and replace with clean, dry gauze. No bathing or otherwise soaking incisions. Do not apply any creams, lotions, or ointments to incisions. Visit Report/Discharge Packet Instructions: DI for Prescription Opioid Use, DI for Transforaminal Lumbar Interbody Fusion Stand Alone Forms: Patient Portal/API, Stroke Signs & Symptoms, Surgery Discharge Discharge Data Primary Care Provider: Salvador Guzman Quality VTE Deep Vein Thrombosis/Pulmonary Embolism Present on Admission: No
[2023-07-04] MEDS: CEFAZOLIN 2 GM/100 ML PREMIX 100 ML IV (07:00)
[2023-07-04 08:00] VITALS: BP 164/87; PULSE 76; RESP 16
[2023-07-04] MEDS: MAGNESIUM OXIDE 400 MG TABLET PO (08:22)
[2023-07-04] MEDS: levETIRAcetam 250 MG TABLET PO (08:22)
[2023-07-04] MEDS: DOCUSATE 100 MG CAPSULE PO (08:22)
[2023-07-04] MEDS: PANTOPRAZOLE DR 40 MG TABLET PO (08:23)
[2023-07-04] MEDS: METFORMIN XR 500 MG TABLET 1000 MG PO (08:23)
[2023-07-04] MEDS: GABAPENTIN 300 MG CAPSULE PO (08:23)
[2023-07-04] MEDS: ATORVASTATIN 20 MG TABLET PO (08:26)
[2023-07-04] MEDS: TAMSULOSIN 0.4 MG CAPSULE PO (08:26)
[2023-07-04] MEDS: carvediloL 12.5 MG TABLET 25 MG PO (08:29)
[2023-07-04] MEDS: INSULIN LISPRO 100 UNIT/ML 3ML VIAL SUBCUT ×2 (08:36→12:13)
[2023-07-04] MEDS: INSULIN GLARGINE 100 UNIT/ML 3ML PEN 20 UNIT SUBCUT (08:37)
--- NOTE | 2023-07-04 10:42 | OT.IP.EVAL ---
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 Activities of Daily Living and IADL's Pt able to do with pain and increased time. Social History Household Members none Living Arrangements House Number of Floors (Floors) Two Floors Number of Stairs To Enter/Railing? 1 step with right rail going up. One flight of steps to get to the second floor with right rail going up. Home Environment Standard Height Toilet Home Equipment Front Wheel Walker,Straight Cane,Sock Aid,Grab Bars Near Toilet Additional Social History Comment Pt states has a very supportive neighbor that assists him and is able to take a shower at his neighbor's house which is a tub /shower with shower chair. M2 OT-IP Current Condition Start: 07/04/23 10:23 Freq: Status: Active Protocol: Document 07/04/23 10:24 [facility] (Rec: 07/04/23 10:42 [facility] [id number]) Occupational Therapy Current Condition Current Condition Evaluation Date 07/04/23 Treatment Diagnosis S/p L4-5 TLIF Diagnosis Onset Date 07/03/23 Post Operative Precautions Lumbar Precautions Log Roll,No Twisting,Limit Bending,Lifting Restriction of 10 lbs,Gait Belt above Incisional Area M3 OT- IP Subjective and Pain Start: 07/04/23 10:23 Freq: Status: Active Protocol: Document 07/04/23 10:24 [facility] (Rec: 07/04/23 10:42 [facility] [id number]) OT- Subjective Occupational Therapy Visit Type Type Initial Evaluation Visit Start Time 08:25 Visit Stop Time 09:40 Total Visit Minutes 55 Notes Pt seen from [id number], [id number]. Occupational Therapy Visit Comments Patient Comments Pt agreed to get up and get dressed. Patient/Caregiver Goals To go home to be with his cat. OT Pain Assessment Pain When Pain Assessed During Mobility Pain Present Pain Present Pain Reported Location Right Hip Intensity 6 Scale Used Numeric (0 - 10) M4 OT- IP ADL's Start: 07/04/23 10:23 Freq: Status: Active Protocol: Document 07/04/23 10:24 [facility] (Rec: 07/04/23 10:42 [facility] [id number]) OT [id number] General Evaluation Self-Feeding Ability Independent OT ADL-Grooming General Evaluation Grooming Ability Independent Areas Needing Assistance Retrieving/Set-up of Grooming Items Comments OT Grooming Comments Able to do while standing at the sink with FWW. OT ADL-Oral Care General Eval Oral Care Ability Independent Areas of Assistance Managing Dentures OT ADL-Dressing General Eval Upper Body Dressing Ability Independent Lower Body Dressing Ability Standby Assistance Comments OT Dressing Comments VC to sit down and recommended to get a elementary spanish teacher to assist for LB dressing needs. Educated to dress his right leg first due to pain and take the RLE last. OT ADL-Toileting General Evaluation Toileting Ability Standby Assistance Comments OT Toileting Comments VC to sit down when tiring. Pt needing to be catheterized earlier due to retention. Educated bets to stand and wipe after a bowel movement. OT ADL-Bathing Comments OT Bathing Comments Not performed. Best to shower at his neighbor's house and have his friend assist home. M5 OT- IP IADL's Start: 07/04/23 10:23 Freq: Status: Active Protocol: Document 07/04/23 10:24 [facility] (Rec: 07/04/23 10:42 [facility] [id number]) OT-Instrumental Activities of Daily Living Deficits IADL Deficits Identified Deficits Home Safety Awareness Awareness of Need for Assistance at Home Decreased Awareness Home Safety Comments Pt is a bit impulsive and independent and emphasized to pt to ask for assist especially with IADL needs. Inpatient Services Director Inpatient Services Director Comments Pt agrees to get his neighbors to assist for IADl needs. Driving Driving Concerns Identified Regarding Safety M6 OT- IP Functional Cognition Start: 07/04/23 10:23 Freq: Status: Active Protocol: Document 07/04/23 10:24 [facility] (Rec: 07/04/23 10:42 [facility] [id number]) Cognitive Factors Limiting Selfcare Function Cognitive Ability Level of Alertness Alert Patient Orientation Name,Place,Situation Attention Span Ability Capable of Focused Attention, Capable of Sustained Attention Ability to Follow Commands Able to Follow One Step Commands with Increased Time, Able to Follow One Step Commands with Repetition Memory Description Short Term Impaired Safety Awareness Decreased Ability to Apply Precautions,Underestimates Need for Assistance Cognitive Comments Cognitive Assessment Comments Pt initially forgetful of his house set-up. Pt needing vc to incorporate his back precautions for his ADL and mobility needs. Pt is a bit impulsive and needing cues to slow down and use the FWW. OT- Vision and Hearing OT- Hearing Assessment OT- Hearing Assessment WFL OT- Vision Assessment Visual Acuity Glasses For Reading M7 OT- IP Mobility and Balance Start: 07/04/23 10:23 Freq: Status: Active Protocol: Document 07/04/23 10:24 [facility] (Rec: 07/04/23 10:42 [facility] [id number]) OT- Bed Mobility Assessment Supine to Sit Supine to Sit Assist Standby Assistance OT-Transfer Assessment Sit to and From Stand Sit to and from Stand Standby Assistance Transfers Transfer Ability Standby Assistance Technique Transfer Destination Bed,Chair,Toilet Transfer Technique Stand Step Pivot Devices Transfer Assistive Devices Gait Belt,Front Wheeled Walker Comments Mobility Comments SBA with FWW , At times pt no using the FWW and tends to hold onto surfaces and needing close SBA to occasional CGA. OT- Balance Assessment Sitting Balance and Reactions Static Sitting Balance Ability Normal Dynamic Sitting Balance Ability Good Standing Balance and Reactions Static Standing Balance Ability Good Dynamic Standing Balance Ability Fair Comments Other Balance Tests/Deviations/Treatment Good balance dynamically with : the FWW, fair without the FWW. Suggested pt get another fww or 4ww for upstairs use. M8 OT- IP Objective Assessments Start: 07/04/23 10:23 Freq: Status: Active Protocol: Document 07/04/23 10:24 [facility] (Rec: 07/04/23 10:42 [facility] [id number]) OT Gross Range of Motion Upper Extremity Range of Motion Assessment Right Impaired OT Strength Upper Extremity Strength Assessment Right Impaired OT-Muscle Tone Assessment Muscle Tone WNL Yes M9 OT- IP Assessment and Plan Start: 07/04/23 10:23 Freq: Status: Active Protocol: Document 07/04/23 10:24 [facility] (Rec: 07/04/23 10:42 [facility] [id number]) OT Summary Assessment and Plan Potential Rehabilitation Potential Good Analytic Complexity at Evaluation Low Summary OT Impairments Pain,Balance,Functional Cognition,Functional Mobility, Dressing,Toileting,Bathing, Toilet Transfers,Shower Transfers Progress Towards Goals Progressing Toward Goals Assessment Summary Pt low complexity and main barriers are pain, a bit impulsive and needing cues for his back precautions. Pt would benefit from someone to stay with him initially, but pt states has neighbors that will assist him at anytime. Pt also states can shower at his neighbor's house. Pt greatly benefit from 24/7 available assist. Goals Dressing Goal Independent Toileting Goal Independent Bathing Goal Standby Assistance Toilet Transfer Goal Independent Shower Transfer Goal Standby Assistance Patient/Caregiver Education Goal Demonstrate Post-Op Precautions Days to Meet Goals 5 Frequency of Treatment Frequency Of Treatment Once a Day Treatment Plan OT Treatment Plan ADL Training,Functional Cognition Training,Functional Mobility,Patient/Family Education,Discharge Planning Discharge Recommendations OT Discharge Recommendations Home with 24/7 Assist Available Home Equipment Needs Get a second FWW or 4ww for upstair use. Transportation Needs at Discharge Private Vehicle
--- NOTE | 2023-07-04 11:05 | PT.IIE ---
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 (08/20/16) Mixed hyperlipidemia Nonischemic cardiomyopathy (09/09/16) Type 2 diabetes mellitus with hyperglycemia, with long-term current use of insulin Type 2 diabetes mellitus without complication Physical Therapy Inpatient Evaluation/Re-Eval M1 PT/OT-IP Prior Functional Status Start: 07/04/23 10:23 Freq: NEEDED Status: Active Protocol: Document 07/04/23 11:05 DLDavid (Rec: 07/04/23 11:46 DL [id number]) Medical Review Prior Functional Status Medical History Reviewed Yes Diet/Fluid Consistency Regular Communication WFL, glasses Mobility and Gait Pt states prior to end april used a SPC , but lately has not needed one. He has history of falls when hiking on trails. He likes Activities of Daily Living and IADL's Pt able to do with pain and increased time. Social History Household Members none Living Arrangements House Number of Floors (Floors) Two Floors Number of Stairs To Enter/Railing? 1 step with right rail going up. One flight of steps to get to the second floor with right rail going up. Home Environment Standard Height Toilet Home Equipment Front Wheel Walker,Straight Cane,Sock Aid,Grab Bars Near Toilet Employment Status Retired Additional Social History Comment Pt states has a very supprotive neighbor that assist him and is able to take a shower at his neighbor's house which is a tub /shower with shower chair. M2 PT-IP Current Condition Start: 07/04/23 08:20 Freq: NEEDED Status: Active Protocol: Document 07/04/23 11:05 DLDavid (Rec: 07/04/23 11:46 DL [id number]) Physical Therapy Current Condition Current Condition Evaluation Date 07/04/23 Treatment Diagnosis L4-5 TLIF, impaired mobility with back pain Onset Date 07/03/23 M3 PT-IP Subjective Start: 07/04/23 08:20 Freq: NEEDED Status: Active Protocol: Document 07/04/23 11:05 [facility] (Rec: 07/04/23 11:46 [facility] [id number]) Subjective Physical Therapy Visit Type Type Initial Evaluation Visit Start Time 10:30 Visit Stop Time 11:05 Total Visit Minutes 35 Number of ORDAINED MINISTER Visits 0 Physical Therapy Visit Comments Patient Comments He wants to go home today. His Neighbor will help him at home. He wants to be able to return to hiking on the trails when he can. Patient Goals Discharge home Therapy Pain Assessment Pain When Pain Assessed After Treatment Pain Present Pain Present Pain Reported Location back Intensity 3 Scale Used Numeric (0 - 10) Description Aching,Tender,With Movement Pain Behaviors Guarding Pain Management Techniques Apply Cold,Re-positioning, Timing of Activity with Medications M4 PT-IP Mobility and Gait Start: 07/04/23 08:20 Freq: NEEDED Status: Active Protocol: Document 07/04/23 11:05 [facility] (Rec: 07/04/23 11:46 [facility] [id number]) PT-Bed Mobility Assessment Rolling Type of Rolling Log Rolling Level of Assist Independent Supine to Sit Supine to Sit Independent Sit to Supine Sit to Supine Independent Scooting Scooting to Edge of Bed Independent PT-Transfer Assessment Sit to and From Stand Sit to and from Stand Independent,Use of Upper Extremities Equipment Transfer Assistive Device Gait Belt,Front Wheeled Walker Transfers Transfer Destination Chair Transfer Technique Stand Step Pivot Transfer Ability Level of Assist Independent,Use of Upper Extremities Comments Mobility Comments Educated pt to use spine precautions during mobility. Gait Assessment Gait Gait Assistance Required: Independent Distance (Feet) 300 Able to Maintain Weight Bearing Status Yes During Gait Assistive Devices Assistive Device Gait Belt,Front Wheeled Walker Gait Deviations General Gait Pattern Decreased Stride Length Factors Limiting Gait Function Factors Limiting Gait Function Decreased Activity Tolerance, Limited Range of Motion,Pain Comments Gait Comments He demonstrates safe use of the FWW. Educated pt to use the FWW all the time and keep pace slow. Stair Climbing Assessment Evaluation Level of Assist On Stairs Independent Devices Stair Climbing Assistive Devices Right Railing Technique/Endurance Stair Climbing Direction Ascend and Descend Stair Climbing Technique Step to Step Number of Steps Climbed 3 Query Text: Stair Climbing Set # Repetitions (reps) 2 Comments Stair Climbing Comments he intermittently uses both hands on the one rail to get up the stairs, his ability to push up on LE's to get up the stairs improved on his second repetition PT-Balance Assessment Sitting Balance and Reactions Static Sitting Balance Ability Good Dynamic Sitting Balance Ability Good Standing Balance and Reactions Static Standing Balance Ability Good Dynamic Standing Balance Ability Good Device Used FWW M5 PT-IP Objective Assessments Start: 07/04/23 08:20 Freq: NEEDED Status: Active Protocol: Document 07/04/23 11:05 DL (Rec: 07/04/23 11:46 [facility] [id number]) Orientation Orientation/Cognition Level of Alertness Alert Orientation Name,Age,Birthday,Month,Date, Year,Day of Week,Place, Situation Language Function Ability No Deficits Noted Safety Awareness Decreased Safety Awareness Comments he reports a history of decreased memory, he is able to recall the education he had with OT earlier this morning Gross Range of Motion Upper Extremity ROM Assessment Within Functional Limits Impairments pain right shoulder Lower Extremity ROM Assessment Within Functional Limits Strength Upper Extremity Strength Assessment Within Functional Limits Lower Extremity Strength Assessment Within Functional Limits Comments Strength Comments back pain post-op with trunk and with functional LE strength Coordination Assessment Gross Coordination Gross Coordination WNL Sensation Assessment Sensation Gross Sensation Right LE Impaired,Left LE Impaired Sensation Description Numbness Comments Sensation Comments hx neuropathy in feet with numbness Muscle Tone Muscle Tone WNL Yes M6 PT-IP Treatment Start: 07/04/23 08:20 Freq: NEEDED Status: Active Protocol: Document 07/04/23 11:05 DL (Rec: 07/04/23 11:46 [facility] [id number]) Physical Therapy Treatment Exercises Exercises Ankle Pumps Education Education Provided Precautions,Post-Op Packet, Safety Other Treatments Other Treatment Performed spine precaution education provided, educated pt to decrease his fall risks M7 PT-IP Assessment and Plan Start: 07/04/23 08:20 Freq: NEEDED Status: Active Protocol: Document 07/04/23 11:05 DL (Rec: 07/04/23 11:46 [facility] [id number]) PT Summary Assessment and Plan Potential Rehabilitation Potential Good Status of Condition at Evaluation Evolving Summary Impairments Pain,ROM,Strength,Balance,Bed Mobility,Transfers,Gait, Activity Tolerance Progress Towards Goals Safe For Discharge,Goals Met Assessment Summary Elpidio is progressing well post- op day one. He tolerated gait well with the FWW. He describes stiffness in his back and thighs when up moving . He is able to go up/down steps as needed with a rail. He reports he has a supportive neighbor who plans to help him at discharge. Post-op training completed this visit. Requested nursing continue to reinforce safety issues while he is hospitalized to decrease his fall risks. Pt has been unable to void today with no urge to do so after mobility/gait. He appears to be safe for discharge home when medically cleared. Frequency of Treatment Frequency Of Treatment Discharge Treatment Plan Other Recommendations and Next Treatment training completed this visit Focus Precautions Lumbar Precautions Log Roll,No Twisting,Limit Bending,Lifting Restriction of 10 lbs,Gait Belt above Incisional Area Other Precautions fall risk, needs reinforcement for safety issues while at the hospital Recommendations To Nursing Amount of Assist Needed Standby Assistance Discharge Recommendations PT Discharge Recommendations Home with Assistance Other Discharge Recommendations has support of his Neighbor Transportation Needs at Discharge Private Vehicle
--- NOTE | 2023-07-04 11:11 | PM.CN ---
History of Present Illness Consult details Date Patient Seen: 07/04/23 Time Patient Seen: 11:13 Chief complaint: Lumbar TLIF Reason for consult: Medical management Narrative: Patient seen for medical management of his various comorbidities after spine surgery Patient is an insulin dependent diabetic with known significant nonischemic cardiomyopathy as well as recent diagnosis of seizure disorder. Meds Home Medications and Allergies Home Medications Medication Instructions Recorded Confirmed Type nortriptyline 50 mg capsule See Rx Instructions PO HS #180 caps 04/30/21 07/03/23 Rx Glucose: Test Strips #500 ea 08/27/21 07/04/23 Rx blood-glucose meter (Blood Glucose #1 ea 08/27/21 07/04/23 Rx Monitoring kit) acetaminophen 325 mg tablet 650 mg PO Q6HR PRN Fever/Mild Pain 05/18/22 07/03/23 Rx (1-3) #60 tabs flash glucose scanning reader #1 ea 06/20/22 07/04/23 Rx (FreeStyle Tara 14 Day [place]) flash glucose sensor (FreeStyle #1 ea 06/20/22 07/04/23 Rx Tara 14 Day Sensor kit) blood-glucose meter,continuous #1 ea 06/26/22 07/04/23 Rx (Dexcom G6 Principal Java Developer) blood-glucose sensor (Dexcom G6 #3 ea 06/26/22 07/04/23 Rx Sensor device) blood-glucose transmitter (Dexcom #1 ea 06/26/22 07/04/23 Rx G6 Transmitter device) tamsulosin 0.4 mg capsule 0.4 mg PO DAILY #90 caps 10/14/22 07/03/23 Rx carvedilol 25 mg tablet 25 mg PO BID #180 tabs 10/16/22 07/03/23 Rx magnesium oxide 400 mg (241.3 mg 400 mg PO BID #180 tabs 10/16/22 07/03/23 Rx magnesium) tablet metformin 500 mg tablet,extended 1,000 mg PO BID #360 tabs 01/06/23 07/03/23 Rx release 24 hr ivabradine 5 mg tablet 5 mg PO BID #180 tabs 02/28/23 07/03/23 Rx sacubitril 24 mg-valsartan 26 mg 1 tab PO BID #180 tabs 02/28/23 07/03/23 Rx tablet levetiracetam 500 mg tablet 250 mg PO BID 03/14/23 07/03/23 History insulin NPH-regular 70-30 U-100 25 unit (0.25 mL) SUBCUT BID #200 04/04/23 07/03/23 Rx insulin 100 unit/mL subcutaneous mL pen (Humulin 70/30 U-100 KwikPen) pen needle, diabetic 31 gauge x #100 ea 04/04/23 07/04/23 Rx 5/16 (1st Tier Unifine Pentips) gabapentin 300 mg capsule 300 mg PO BID 06/17/23 07/03/23 History oxycodone 5 mg tablet 5 mg PO Q6H PRN pain #60 tabs 06/27/23 07/03/23 Rx atorvastatin 20 mg tablet 20 mg PO DAILY #90 tabs 06/30/23 07/03/23 Rx omeprazole 40 mg capsule,delayed 40 mg PO BID #60 caps 06/30/23 07/03/23 Rx release docusate sodium 100 mg capsule 100 mg PO BID PRN constipation #60 07/04/23 Rx caps hydroxyzine pamoate 25 mg capsule 25 mg PO Q4HR PRN muscle spasm #60 07/04/23 Rx caps oxycodone 5 mg tablet 5 mg PO Q4-6H PRN pain, moderate 07/04/23 Rx #60 tabs Allergies Allergy/AdvReac Type Severity Reaction Status Date / Time No Known Drug Allergies Allergy Verified 07/03/23 13:06 Review of Systems Review of Systems ROS: Yes All systems reviewed with the patient and are negative except as otherwise documented Exam Vital Signs (past 8 hours): - 07/04/23 04:16 07/04/23 09:05 07/04/23 08:00 Pulse Rate 76 Respiratory Rate 16 Blood Pressure 164/87 H Oxygen Delivery Method Nasal Cannula Room Air Oxygen Flow Rate 2 0 Fraction of Inspired Oxygen 21 Fraction of Inspired Oxygen 21 Oxygen Delivery Method Room Air Oxygen Flow Rate 0 Narrative Exam Narrative: HEENT-unremarkable, normocephalic atraumatic Neck-no lymphadenopathy no bruits Lungs-clear anteriorly and posteriorly no wheezes no crackles good breath sounds Heart-regular rate and rhythm, no murmur, rub, or gallop. 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/hinduism: Evangelical travel history: recent leisure activities: music, reading and other (Hiking.) Tobacco & Substance Use Smoking Status: Never smoker quit status: quit date established second hand exposure: No alcohol intake: current substance use type: does not use Assessment & Plan Assessment & Plan narrative: 1. Status post spine surgery-as per Orthopedic/spine surgery. Continued rehab etcetera and probable discharge later today 2. Diabetes-patient should be on a carbohydrate consistent diet and on his usual medications. He should have coverage insulin at appropriate doses as well. These have been ordered by myself. 3. Nonischemic cardiomyopathy-seems stable from this standpoint. Continue patient's usual medications 4. Seizure disorder-seems stable-continue usual medication 5. Hypertension-seems stable continue usual medication
[2023-07-04 12:00] VITALS: BP 132/64; PULSE 72; RESP 16; O2SAT 94
--- NOTE | 2023-07-04 14:36 | PC.NURSE ---
Addendum entered by Ethel Ramos R.N. 07/04/23 16:26: Patient is educated on love catheter care and leg bag. He is escorted via w/ch to private vehicle with neighbor friend for discharge home this afternoon at 1537. Original Note: Patient received lying in bed A&OX4. He reports pain is well controlled with po oxycodone prn 10 mg. Dressing to back changed, (rolling up) chato c/d/i. Patient is able to tolerate meals and denies n/v. He is able to participate with PT/OT and cleared for discharge from their standpoint. patient unable to void, after a.m flomax administered by 11 a.m. (Night RN straight cath'd him at 0500) After lunch patient attempts to void several times and is able to void 100 cc. PVR Bladder scan at 1300 is 645ml. MD Hanson notified and per orders placed 16 canadian love catheter indwellling with coude for discharge home and contacted MD Guzman for urology referral. Pt verbalizes understanding of love care and transition to leg bag reviewed with patient. Patient also acknowledges understanding of surgery site care, s/sx of infection, activity limitations as well as discharge home medications, along with Ortho and Urology follow up appointments.
--- NOTE | 2023-07-04 15:38 | CM.DANOTE ---
Patient is a 72 yo male who was admitted on 07/03/23 for Lumbar TLIF. Pt has [facility] and AARP for insurance and his PCP is Dr. Salvador Guzman. EMR was reviewed. Per Ortho PA, pt tolerated procedure well and medically stable to d/c home after cleared by PT/OT today. Per PT/OT, pt was able to participate in therapies and stairs and CG training and recommending d/c home with HH due to pt's now new love cath management and learning DME. Per RN, pt had urinary retention so discharging home with love cath and has transport available and given d/c instructions and no further d/c needs and agreeable with letting pt know [facility] referral made. Due to triage needs, SW made [facility] referral based on [facility] Calendar and called [facility] with new referral and faxed clinicals along with d/c summ, HH orders, and F2F. They will follow up with pt this weekend. Plan: Patient to d/c home via family POV and outpt f/u with Ortho and new [facility] for love cath management and strengthening. ANGELIQUE Mccall Discharge Planning/Care Management Pre-Anesthesia Assessment Start: 06/17/23 09:06 Freq: Status: Active Protocol: Document 06/17/23 09:06 DEREK (Rec: 06/17/23 09:43 [place] [id number]) Pre-Anesthesia Assessment Preferred Name Edi Patient Information Reviewed Via Phone Assessment Assessment Completed With Patient Diagnostic Results BMP/CMP,CBC,EKG,PT/INR Primary Care Provider Salvador Guzman Medical Clearance Received No Seen Specialist in Last 12 Months Yes Specialist Seen [employer] Interleafer,Global Creative Chairman, Orthopedist,Other Comment neurologist Preferred Language Romanian Height 170.18 cm Weight 78.925 kg Body Mass Index (BMI) 27.2 Hearing Ability Normal Visual Impairment Partially Limited Visual Assist Glasses Dentition Type Partial- Upper Barriers to Learning None Other Aids No Hx Anesthesia Reactions No Hx Family Anesthesia Reaction No Hx Malignant Hyperthermia No Hx Blood Transfusions Yes Hx Blood Transfusion Reaction No Anesthesia Review Requested No Configuration Manager No alcohol intake current alcohol intake frequency a few times a week Smoking Status Never smoker Substance Use Type does not use Pain Present Pain Reported Comment Chronic left hip pain Musculoskeletal Symptoms Difficulty Walking,Joint Pain History of Falling (Recent or History of Yes ) Comment Balance issues, falling on trails per patient. Patient is completely paralyzed or No completely immobile Ambulatory Aid None/bed rest/nurse assist Gait/Transferring Normal/bedrest/immobile Mental Status Oriented to own ability Is patient on oxygen? No Does patient have MORGAN/SOB No Hx Sleep Apnea Yes CPAP/BIPAP use prescribed not used Will Bring CPAP/BIPAP DOS No Currently Taking a Beta Lupe Yes: Carvedilol Can You Climb a Flight of Stairs Without No SOB Hx Chest Pain No Hx SOB No Hx Syncope or Dizziness Yes: Seizures, last one 03/2023 -on Keppra Anti-Coagulant Therapy No Has a Carbon Paper Interleafer Yes Carbon Paper Interleafer name Dr. Mccabe Cardiac Testing Yes: EKG, Echo Hx Pacemaker/ICD Yes Pacemaker Rep Required? Yes Diet Type At Home Regular Dysphagia No Bladder Pattern Frequency Urinary Catheter Present No Hx Urinary Self Catheterization No Diabetes Yes HgbA1C 7.3 Date 05/28/23 Hx Drug Resistant Organism No Presence of External or Internal Medical Yes: AICD/Defibrillator Devices Have you had any close contact with No someone diagnosed with COVID-19? Are you experiencing any of these No symptoms symptoms? Received a COVID vaccine? Yes Comment Covid 03/24/23 Lives With none Current Living Arrangements House Number of Floors (Floors) One Floor Support System Friend(s) Does the Patient Have Assistance After Yes Surgery Patient Discharge Plan Description Return Home Comment Reported neighbor will be assisting him post-op Feels Safe in Current Environment Yes Been Physically Hurt or Threatened By a No Person in Current Environment Do you have thoughts of harming yourself None or others? Are you currently considering suicide? No Do you have a plan to hurt yourself or No Plan others? Do You Have Any Spiritual Beliefs That No May Affect Your HC Choices? Do You Have Any Cultural Practices That No May Affect Your HC Choices? Who Can We Speak to About Patient's Care Family, friends Identifying Code for Release of Patient declined Information Health Care Proxy/Next of Kin Ham Okeefe (ride) Health Care Proxy Emergency Contact Name Ham Okeefe Emergency Contact Advance Directives? No: in progress Advance Directives on File No Requested Patient Bring Advanced Yes Directives DOS Power of Acetylene Cutter No PAC Instructions Assistance for 24 hours post- op,Diabetes instructions,Do not shave/clip surgical site, Durable medical equipment, Medications to take/avoid, Nasal antibiotic,No ETOH/ petroleum product on skin DOS, NPO,Post-op transportation,Pre -surgical wash,Sensory aids, Sturdy shoes/comfortable clothes,Do not bring valuables and remove jewelry
== END 2023-07-04 15:37 | disposition home or self-care (01) | DRG 454 ==
PROVIDERS: Admitting Provider Orthopaedic Surgery Orthopaedic Surgery of the Spine; PCP Internal Medicine; Referring Provider Orthopaedic Surgery; Visit Provider Orthopaedic Surgery Orthopaedic Surgery of the Spine
PROC: 0SG00AJ Fusion of Lumbar Vertebral Joint with Interbody Fusion Device, Posterior Approach, Anterior Column, Open Approach (ICD-10-PCS; principal; 2023-07-03 14:15)
DX: M48.061 Spinal stenosis, lumbar region without neurogenic claudication (principal); I42.8 Other cardiomyopathies; M54.16 Radiculopathy, lumbar region; M48.07 Spinal stenosis, lumbosacral region; M71.38 Other bursal cyst, other site; E11.9 Type 2 diabetes mellitus without complications; G40.909 Epilepsy, unspecified, not intractable, without status epilepticus; I10 Essential (primary) hypertension; R33.9 Retention of urine, unspecified; E78.2 Mixed hyperlipidemia; Z95.0 Presence of cardiac pacemaker; Z79.4 Long term (current) use of insulin
CPT/HCPCS: 72100; 76000; 82962; 97162; 97165; 97530; 97535; C1776; C1713; C1831; C9290; J0171; J0330; J0690; J1100; J1170; J1815; J2405; J3010

== ENCOUNTER 2023-07-07 12:53 | Emergency (ER) | payer MEDICARE, SELFPAY ==
[2023-03-24 18:11] VITALS: PULSE 55; RESP 16; O2SAT 100
[2023-07-03 18:53] VITALS: BMI 27.2
[2023-07-07 13:10] VITALS: BP 113/69; PULSE 84; RESP 17; TEMP 36.3; O2SAT 95
--- NOTE | 2023-07-07 15:12 | CM.SWNOTE ---
ED PROFILER HAND Note Patient is 72 y/o male who presents to ED due to concern for post surgery pain, no appetite and concern for ADLs. PROFILER HAND receives consult due to concern for patient's living condition, friend reports concern for patient's hoarding situation. Patient was recently admitted to for TLIF fusion surgery by Dr. Hanson and discharged on 07/04/23 with [facility] referral and Catheter foly. Patient's PCP is Dr. Guzman, patient has AARP and Medicare insurance. PROFILER HAND enters room to meet with patient, present in room is patient's friend Sherman. Patient presents as A/Ox4, presents with love catheter, it is reported that patient can ambulate, patient endorses access to basic needs and food and water. Patient endorses he has two canes and FWW at home. It is reported that patient lives on top floor and can use stairs. Patient endorses concern for more DME. Patient's friend reports that he has DME list. Patient endorse access to bathroom and bathing. PROFILER HAND provides patient with list of 3 hoarder/deep cleaning providers in [facility]. PROFILER HAND provides patient with senior resource guide. PROFILER HAND calls [facility] and leaves VM regarding patient and recent referral, PROFILER HAND requests expedited intake appt. Patient's friend Sherman speaks with PROFILER HAND outside of room privately. Patient's friend reports concern for patient's decreased appetite, and concern for stacked up magazines on stairs, rodent feces and cat feces in house. Friend reports history of APS report but patient is A/Ox4 and independent in decision making. Friend states that he reported these concerns to patient's PCP. PROFILER HAND to make APS report due to concern for self neglect and patient's hoarding situation. APS Online Report Confirmation Number: [id number]. PROFILER HAND reviews patient with ED provider Renny Gonzales PA-C Plan: Patient to d/c to home with friend upon medical clearance, [facility] to f/u with patient, pending APS investigation, patient hasoutpatient post surgery f/u, patient to utilize senior resource guide and DME resources. JESUS RomeroSW
--- NOTE | 2023-07-07 15:30 | PC.NURSE ---
patient ambulatory to door with steady gait to the door of room 7. provider aware.
[2023-07-07 15:47] VITALS: BP 110/63; PULSE 80; RESP 16; O2SAT 99
--- NOTE | 2023-07-22 11:12 | ED_ITS ---
HPI - Back Pain/Injury <Renny Gonzales PA-C - Last Filed: 07/22/23 17:16> General Chief Complaint: Back Pain/Injury Stated Complaint: POST BACK SURGERY/no appetite/adls Time Seen by Provider: 07/07/23 13:41 Source: other History of Present Illness HPI Narrative: 72-year-old male brought in by his friend status post a back surgery for constipation. Patient has been taking oxycodone for the post surgery pain, patient has been constipated since he left the hospital. Patient was also prescribed a stool softener, which she has not been taking. Patient endorses anorexia due to being so constipated, denies vomiting or nausea. Patient denies abdominal pain. Patient states that his surgical incision seems to be healing well and that his pain is improving every day. Patient is able to walk. Patient also states that he would like some help with house cleaning. Related Data Home Medications Medication Instructions Recorded Confirmed levetiracetam 500 mg tablet 250 mg PO BID 03/14/23 07/29/23 Previous Rx's Medication Instructions Recorded nortriptyline 50 mg capsule See Rx Instructions PO HS #180 caps 04/30/21 Glucose: Test Strips #500 ea 08/27/21 blood-glucose meter (Blood Glucose #1 ea 08/27/21 Monitoring kit) acetaminophen 325 mg tablet 650 mg PO Q6HR PRN Fever/Mild Pain 05/18/22 (1-3) #60 tabs flash glucose scanning reader #1 ea 06/20/22 (FreeStyle Tara 14 Day [place]) flash glucose sensor (FreeStyle #1 ea 06/20/22 Tara 14 Day Sensor kit) blood-glucose meter,continuous #1 ea 06/26/22 (Dexcom G6 [employer]) blood-glucose sensor (Dexcom G6 #3 ea 06/26/22 Sensor device) blood-glucose transmitter (Dexcom #1 ea 06/26/22 G6 Transmitter device) carvedilol 25 mg tablet 25 mg PO BID #180 tabs 10/16/22 magnesium oxide 400 mg (241.3 mg 400 mg PO BID #180 tabs 10/16/22 magnesium) tablet metformin 500 mg tablet,extended 1,000 mg PO BID #360 tabs 01/06/23 release 24 hr ivabradine 5 mg tablet 5 mg PO BID #180 tabs 02/28/23 sacubitril 24 mg-valsartan 26 mg 1 tab PO BID #180 tabs 02/28/23 tablet insulin NPH-regular 70-30 U-100 25 unit (0.25 mL) SUBCUT BID #200 04/04/23 insulin 100 unit/mL subcutaneous mL pen (Humulin 70/30 U-100 KwikPen) pen needle, diabetic 31 gauge x #100 ea 04/04/2303/18 (1st Tier Unifine Pentips) oxycodone 5 mg tablet 5 mg PO Q6H PRN pain #60 tabs 06/27/23 atorvastatin 20 mg tablet 20 mg PO DAILY #90 tabs 06/30/23 omeprazole 40 mg capsule,delayed 40 mg PO BID #60 caps 06/30/23 release docusate sodium 100 mg capsule 100 mg PO BID PRN constipation #60 07/04/23 caps hydroxyzine pamoate 25 mg capsule 25 mg PO Q4HR PRN muscle spasm #60 07/04/23 caps oxycodone 5 mg tablet 5 mg PO Q4-6H PRN pain, moderate 07/04/23 #60 tabs clopidogrel 75 mg tablet 75 mg PO DAILY #90 tabs 07/15/23 gabapentin 300 mg capsule 300 mg PO BID #180 caps 07/15/23 fosfomycin tromethamine 3 gram 3 g PO ONCE #1 ea 07/21/23 oral packet (Monurol) tamsulosin 0.4 mg capsule 0.8 mg PO DAILY #180 caps 07/23/23 Allergies Allergy/AdvReac Type Severity Reaction Status Date / Time No Known Drug Allergies Allergy Verified 07/29/23 13:58 Review of Systems <Renny Gonzales PA-C - Last Filed: 07/22/23 17:16> Review of Systems ROS Unobtainable: All systems reviewed & are unremarkable except as noted in HPI and below Constitutional Constitutional: Denies chills, Denies fatigue, Denies fever(s), Denies frequent falls, Denies lethargy and Denies weakness Eyes Eyes: Denies change in vision, Denies eye discharge, Denies irritation and Denies loss of vision ENT Ears, Nose, Mouth, and Throat: Denies change in voice, Denies dizziness, Denies neck pain, Denies sore throat and Denies throat swelling Cardiovascular Cardiovascular: Denies chest pain, Denies irregular heart rhythm, Denies l ightheadedness, Denies palpitations, Denies dyspnea, Denies dyspnea on exertion and Denies orthopnea Respiratory Respiratory: Denies cough, Denies dyspnea, Denies dyspnea on exertion and Denies wheezing Gastrointestinal Gastrointestinal: Denies abdominal pain, Denies change in bowel habits, Reports constipation, Denies diarrhea, Denies nausea and Denies vomiting Genitourinary Genitourinary: Denies hematuria, Denies flank pain, Denies urinary incontinence and Denies urinary urgency Musculoskeletal Musculoskeletal: Denies back pain, Denies muscle weakness, Denies neck pain, Denies numbness and Denies tingling Integumentary/Breasts Skin/Breast: Denies pruritus, Denies erythema, Denies rash and Denies wounds Neurologic Neurologic: Denies behavioral changes, Denies confusion, Denies dizziness, Denies frequent falls, Denies loss of vision, Denies numbness, Denies tingling and Denies weakness Psychiatric Psychiatric: Denies anxiety, Denies behavioral changes, Denies confusion, Denies depression, Denies homicidal ideation and Denies suicidal ideation Endocrine Endocrine: Denies fatigue, Denies flushing and Denies palpitations Hematologic/Lymphatic Hematologic/Lymphatic: Denies easy bruising Allergic/Immunologic Allergic/Immunologic: Denies urticaria, Denies throat swelling and Denies wheezing Patient History <Renny Gonzales PA-C - Last Filed: 07/22/23 17:16> Medical History (Updated 07/29/23 @ 14:21 by Salvador Guzman MD) Acute GI bleeding Automatic implantable cardiac defibrillator in situ (~07/2019) Benign prostatic hyperplasia Bladder outlet obstruction Cerebrovascular accident Degeneration of intervertebral disc of cervical region Diabetic peripheral neuropathy (07/25/15) Essential hypertension History of depression History of pacemaker Hx of congestive heart failure Hx of skin cancer, basal cell Incomplete emptying of bladder emt intermediate current use of insulin (08/20/16) Lower urinary tract symptoms Mixed hyperlipidemia Nonischemic cardiomyopathy (09/09/16) Type 2 diabetes mellitus with hyperglycemia, with long-term current use of insulin Type 2 diabetes mellitus without complication Surgical History (Updated 07/29/23 @ 14:21 by Salvador Guzman MD) History of back surgery S/P lumbar fusion Social History marital status: number of children: 0 household members: none lives independently: Yes caregiver/support person: Yes housing: house pets and animals: Yes education level: other (Bachelor's Degree) occupational status: previously employed and other (Retired) current occupational exposures/hazards: No 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/buddhism: Taoist travel history: recent leisure activities: music, reading and other (Hiking.) Smoking Status: Never smoker quit status: quit date established second hand exposure: No alcohol intake: current substance use type: does not use caffeine: Yes Type(s) of exercise: walking frequency: 3-4 times per week Smoking Status: Never smoker alcohol intake frequency: a few times a week Alcohol type: hard liquor Substance Use Type: does not use Exam <Renny Gonzales PA-C - Last Filed: 07/22/23 17:16> Narrative Exam Narrative: Const General:?cooperative, healthy appearing and comfortable HENMT Head:?normal to inspection Ears:?hearing grossly normal bilaterally Nose:?external nose normal Face and sinus:?normal facial exam and sinuses nontender Mouth:?oral mucosae normal Throat:?posterior oropharynx normal Eyes General:?appearance normal, both eyes and all related structures Neck Neck:?normal visual inspection and no lymphadenopathy noted Resp Effort & Inspection:?normal respiratory effort Auscultation:?clear to auscultation bilaterally Cardio Rate:?regular rate Rhythm:?regular rhythm GI Abdomen is soft, nondistended, nontender to palpation. Integumentary Surgical incision appears to be healing well with no signs of infection. Neuro General:?patient alert, patient awake and patient oriented x3 Initial Vital Signs Initial Vital Signs: Vital Signs Temperature 97.4 F L 07/07/23 13:10 Pulse Rate 84 07/07/23 13:10 Respiratory Rate 17 07/07/23 13:10 Blood Pressure 113/69 07/07/23 13:10 Pulse Oximetry 95 07/07/23 13:10 Oxygen Delivery Method Room Air 07/07/23 13:10 <Leela Mata MD - Last Filed: 07/31/23 07:06> Initial Vital Signs Initial Vital Signs: Vital Signs Temperature 97.4 F L 07/07/23 13:10 Pulse Rate 84 07/07/23 13:10 Respiratory Rate 17 07/07/23 13:10 Blood Pressure 113/69 07/07/23 13:10 Pulse Oximetry 95 07/07/23 13:10 Oxygen Delivery Method Room Air 07/07/23 13:10 MDM - Back Pain/Injury <Renny Gonzales PA-C - Last Filed: 07/22/23 17:16> [facility] Narrative Medical decision making narrative: 72-year-old male brought in by his friend status post a back surgery for constipation. Patient's constipation is likely due to the oxycodone and not taking a stool softener. Recommend MiraLax and docusate as well as plenty of hydration. Recommend follow-up with Dr. Flynn for the postop check. Patient talked with our social scientist and obtained some house cleaning services. ED return precautions discussed with patient. Patient verbalized understanding. Medical records reviewed: Yes Discharge Plan Departure Patient Disposition: Home Clinical Impression: Constipation Instructions: DI for Constipation Activity Restrictions/Additional Instructions: You were evaluated in the ED today for constipation and loss of appetite. It is common to experience constipation when taking opioids such as oxycodone after a surgery. It is important that you take the stool softener docusate that has been prescribed for you. You may also take MiraLax nightly for regular bowel movements. Please ensure you drink plenty of water to stay hydrated. Your surgical incision is healing well with no signs of infection and your dressing was changed today. Please follow-up with Dr. Flynn as scheduled for a postop check. Return to the ED if you experience chest pain, shortness of breath, persistent vomiting. Prescriptions: No Action nortriptyline 50 mg capsule See Rx Instructions PO HS Qty: 180 3RF Dose Instruction: 1-2 caps PO HS; Rx Instructions: 1-2 caps PO HS; metformin 500 mg tablet extended release 24 hr 1,000 mg PO BID Qty: 360 3RF (DME) pen needle, diabetic [1st Tier Unifine Pentips] 31 gauge x 5/16 needle See Rx Instructions .Route Qty: 100 3RF Rx Instructions: Use to administer insulin bid and as necessary atorvastatin 20 mg tablet 20 mg PO DAILY Qty: 90 3RF omeprazole 40 mg capsule,delayed release(DR/EC) 40 mg PO BID Qty: 60 3RF gabapentin 300 mg capsule 300 mg PO BID Qty: 180 3RF Rx Instructions: patient requests this w/ dinner instead of HS clopidogrel 75 mg tablet 75 mg PO DAILY Qty: 90 3RF fosfomycin tromethamine [Monurol] 3 gram packet 3 g PO ONCE Qty: 1 0RF Rx Instructions: Take one tablet by mouth one day prior to procedure. tamsulosin 0.4 mg capsule 0.8 mg PO DAILY Qty: 180 3RF (DME) FreeStyle Tara 14 Day [place] Misc See Rx Instructions .ROUTE .MEDSUPPLY Qty: 1 0RF Rx Instructions: USE FOR CONTINUOUS BLOOD GLUCOSE MONITORING. REPLACE EVERY YEAR. (DME) FreeStyle Tara 14 Day Sensor Kit See Rx Instructions .ROUTE .MEDSUPPLY Qty: 1 12RF Rx Instructions: USE FOR CONTINUOUS GLUCOSE MONITORING. REPLACE EVERY 30 DAYS. (DME) Dexcom G6 Sensor Device See Rx Instructions .Route Qty: 3 3RF Rx Instructions: As directed (DME) Dexcom G6 [employer] Misc See Rx Instructions .Route Qty: 1 0RF Rx Instructions: As directed (DME) Dexcom G6 Transmitter Device See Rx Instructions .Route Qty: 1 0RF Rx Instructions: As directed levetiracetam 500 mg tablet 250 mg PO BID Rx Instructions: 250 PO BID for 2 weeks, then increase to 500mg BID. Humulin 70/30 U-100 KwikPen 100 unit/mL (70-30) insulin pen 25 unit SUBCUT BID Qty: 200 10RF Patient Comments: pt took 12 units this morning for surgery (only 1/2 his dose as instructed) Rx Instructions: 25 units twice daily, SUBCUT ; (DME) blood-glucose meter [Blood Glucose Monitoring] Kit See Rx Instructions .ROUTE .MEDSUPPLY Qty: 1 0RF Rx Instructions: As directed (DME) Glucose: Test Strips 0 .Route .MEDSUPPLY Qty: 500 11RF Rx Instructions: Use as directed to check blood sugar up to 4 times daily oxycodone 5 mg tablet 5 mg PO Q6H PRN (Reason: pain) Qty: 60 0RF magnesium oxide 400 mg (241.3 mg magnesium) tablet 400 mg PO BID Qty: 180 3RF carvedilol 25 mg tablet 25 mg PO BID Qty: 180 3RF Rx Instructions: must administer with a meal/food docusate sodium 100 mg Capsule 100 mg PO BID PRN (Reason: constipation) Qty: 60 1RF hydroxyzine pamoate 25 mg Capsule 25 mg PO Q4HR PRN (Reason: muscle spasm) Qty: 60 0RF oxycodone 5 mg tablet 5 mg PO Q4-6H PRN (Reason: pain, moderate) Qty: 60 0RF acetaminophen 325 mg Tablet 650 mg PO Q6HR PRN (Reason: Fever/Mild Pain (1-3)) Qty: 60 0RF ivabradine 5 mg Tablet 5 mg PO BID Qty: 180 3RF sacubitril-valsartan 24-26 mg Tablet 1 tab PO BID Qty: 180 3RF Referrals: Salvador Guzman MD [Primary Care Provider] - Stand Alone Forms: Patient Portal/API <Leela Mata MD - Last Filed: 07/31/23 07:06> Cosign ED Attending Cosignature Attestation: I did not see this patient. I was available all times for consultation.
== END 2023-07-07 15:48 | disposition home or self-care (01) ==
PROVIDERS: Emergency Provider Student in an Organized Health Care Education/Training Program; PCP Internal Medicine
DX: K59.03 Drug induced constipation (principal)
CPT/HCPCS: 99281

== ENCOUNTER 2023-07-14 12:28 | Emergency (ER) | payer MEDICARE, SELFPAY ==
[2023-03-24 18:11] VITALS: PULSE 55; RESP 16; O2SAT 100
[2023-07-03 18:53] VITALS: BMI 27.2
--- NOTE | 2023-07-14 12:36 | PC.NURSE ---
Called for triage [phone], no answer, not in WR.
[2023-07-14 13:25] VITALS: BP 135/59; PULSE 72; RESP 16; TEMP 36.4; O2SAT 96; BMI 26.6
--- NOTE | 2023-07-14 13:32 | PC.NURSE ---
Multiple attempts to triage pt, he is wandering around [facility]. Encouraged to stay in ED waiting area for triage.
--- NOTE | 2023-07-14 13:43 | PC.NURSE ---
Patient given extensive education on following up with Urology to have catheter removed and to increase his water consumption to 8 6-8oz of water a day to increase hydration status. Patient with concerns d/t spending time in bed, educated patient on getting self a pitcher for bedside from [employer] or other stores. Patient acknowledged all teaching regarding urology and water consumption. Patient drinking water in waiting room when brought back for bag change.
--- NOTE | 2023-07-14 13:56 | PC.NURSE ---
LURDES Leal changed catheter tubing and drainage bag
--- NOTE | 2023-07-14 16:59 | ED.RECABL ---
HPI - Recheck/Abnormal Lab/Rx <Renny Gonzales PA-C - Last Filed: 07/14/23 19:34> General Chief Complaint: Recheck/Abnormal Lab/Rx Stated Complaint: sent by Urology for cath/problem Time Seen by Provider: 07/14/23 13:54 Source: patient Mode of arrival: Ambulatory History of Present Illness HPI narrative: 72-year-old male status post a back surgery on 07/03/2023, had a urinary catheter inserted due to urinary retention after the procedure. Patient came to the ED today due to the urine bag leaking, and requests to have the tube and bag replaced. Patient denies fever, chills, nausea, vomiting. Patient states that he has not had the chance to see a urologist for evaluation of catheter removal and trial of voiding. Related Data Home Medications Medication Instructions Recorded Confirmed levetiracetam 500 mg tablet 250 mg PO BID 03/14/23 07/03/23 gabapentin 300 mg capsule 300 mg PO BID 06/17/23 07/03/23 Previous Rx's Medication Instructions Recorded nortriptyline 50 mg capsule See Rx Instructions PO HS #180 caps 04/30/21 Glucose: Test Strips #500 ea 08/27/21 blood-glucose meter (Blood Glucose #1 ea 08/27/21 Monitoring kit) acetaminophen 325 mg tablet 650 mg PO Q6HR PRN Fever/Mild Pain 05/18/22 (1-3) #60 tabs flash glucose scanning reader #1 ea 06/20/22 (FreeStyle Tara 14 Day [place]) flash glucose sensor (FreeStyle #1 ea 06/20/22 Tara 14 Day Sensor kit) blood-glucose meter,continuous #1 ea 06/26/22 (Dexcom G6 Boxing Inspector) blood-glucose sensor (Dexcom G6 #3 ea 06/26/22 Sensor device) blood-glucose transmitter (Dexcom #1 ea 06/26/22 G6 Transmitter device) tamsulosin 0.4 mg capsule 0.4 mg PO DAILY #90 caps 10/14/22 carvedilol 25 mg tablet 25 mg PO BID #180 tabs 10/16/22 magnesium oxide 400 mg (241.3 mg 400 mg PO BID #180 tabs 10/16/22 magnesium) tablet metformin 500 mg tablet,extended 1,000 mg PO BID #360 tabs 01/06/23 release 24 hr ivabradine 5 mg tablet 5 mg PO BID #180 tabs 02/28/23 sacubitril 24 mg-valsartan 26 mg 1 tab PO BID #180 tabs 02/28/23 tablet insulin NPH-regular 70-30 U-100 25 unit (0.25 mL) SUBCUT BID #200 04/04/23 insulin 100 unit/mL subcutaneous mL pen (Humulin 70/30 U-100 KwikPen) pen needle, diabetic 31 gauge x #100 ea 04/04/2303/18 (1st Tier Unifine Pentips) oxycodone 5 mg tablet 5 mg PO Q6H PRN pain #60 tabs 06/27/23 atorvastatin 20 mg tablet 20 mg PO DAILY #90 tabs 06/30/23 omeprazole 40 mg capsule,delayed 40 mg PO BID #60 caps 06/30/23 release docusate sodium 100 mg capsule 100 mg PO BID PRN constipation #60 07/04/23 caps hydroxyzine pamoate 25 mg capsule 25 mg PO Q4HR PRN muscle spasm #60 07/04/23 caps oxycodone 5 mg tablet 5 mg PO Q4-6H PRN pain, moderate 07/04/23 #60 tabs Allergies Allergy/AdvReac Type Severity Reaction Status Date / Time No Known Drug Allergies Allergy Verified 07/14/23 13:25 Review of Systems <Renny Gonzales PA-C - Last Filed: 07/14/23 19:34> Review of Systems ROS Unobtainable: All systems reviewed & are unremarkable except as noted in HPI and below Constitutional Constitutional: Denies chills, Denies fatigue, Denies fever(s), Denies frequent falls, Denies lethargy and Denies weakness Eyes Eyes: Denies change in vision, Denies eye discharge, Denies irritation and Denies loss of vision ENT Ears, Nose, Mouth, and Throat: Denies change in voice, Denies dizziness, Denies neck pain, Denies sore throat and Denies throat swelling Cardiovascular Cardiovascular: Denies chest pain, Denies irregular heart rhythm, Denies lightheadedness, Denies palpitations, Denies dyspnea, Denies dyspnea on exertion and Denies orthopnea Respiratory Respiratory: Denies cough, Denies dyspnea, Denies dyspnea on exertion and Denies wheezing Gastrointestinal Gastrointestinal: Denies abdominal pain, Denies change in bowel habits, Denies diarrhea, Denies nausea and Denies vomiting Genitourinary Genitourinary: Denies hematuria, Denies flank pain, Denies urinary incontinence and Denies urinary urgency Comments: Abbasi catheter bag leaking Musculoskeletal Musculoskeletal: Denies back pain, Denies muscle weakness, Denies neck pain, Denies numbness and Denies tingling Integumentary/Breasts Skin/Breast: Denies pruritus, Denies erythema, Denies rash and Denies wounds Neurologic Neurologic: Denies behavioral changes, Denies confusion, Denies dizziness, Denies frequent falls, Denies loss of vision, Denies numbness, Denies tingling and Denies weakness Psychiatric Psychiatric: Denies anxiety, Denies behavioral changes, Denies confusion, Denies depression, Denies homicidal ideation and Denies suicidal ideation Endocrine Endocrine: Denies fatigue, Denies flushing and Denies palpitations Hematologic/Lymphatic Hematologic/Lymphatic: Denies easy bruising Allergic/Immunologic Allergic/Immunologic: Denies urticaria, Denies throat swelling and Denies wheezing Patient History <Renny Gonzales PA-C - Last Filed: 07/14/23 19:34> Medical History Acute GI bleeding Automatic implantable cardiac defibrillator in situ (~07/2019) Cerebrovascular accident Degeneration of intervertebral disc of cervical region Diabetic peripheral neuropathy (07/25/15) Essential hypertension skilled nursing current use of insulin (08/20/16) Mixed hyperlipidemia Nonischemic cardiomyopathy (09/09/16) Type 2 diabetes mellitus with hyperglycemia, with long-term current use of insulin Type 2 diabetes mellitus without complication Social History marital status: unmarried,single number of children: 0 household members: none lives independently: Yes caregiver/support person: Yes housing: house pets and animals: Yes education level: other (Bachelor's Degree) occupational status: other (Retired) current occupational exposures/hazards: No 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/sikh: Bahai travel history: recent leisure activities: music, reading and other (Hiking.) Smoking Status: Never smoker quit status: quit date established second hand exposure: No alcohol intake: current substance use type: does not use Smoking Status: Never smoker alcohol intake frequency: a few times a week Alcohol type: hard liquor Substance Use Type: does not use Exam <CHLOÉ Verma Last Filed: 07/14/23 19:34> Narrative Exam Narrative: Const General:?cooperative, healthy appearing and comfortable [facility] Head:?normal to inspection Ears:?hearing grossly normal bilaterally Nose:?external nose normal Face and sinus:?normal facial exam and sinuses nontender Mouth:?oral mucosae normal Throat:?posterior oropharynx normal Eyes General:?appearance normal, both eyes and all related structures Neck Neck:?normal visual inspection and no lymphadenopathy noted Resp Effort & Inspection:?normal respiratory effort Auscultation:?clear to auscultation bilaterally Cardio Rate:?regular rate Rhythm:?regular rhythm Abbasi catheter in place and draining without problems. Bag and tubing were replaced in the ED Neuro General:?patient alert, patient awake and patient oriented x3 Initial Vital Signs Initial Vital Signs: Vital Signs Temperature 97.6 F 07/14/23 13:25 Pulse Rate 72 07/14/23 13:25 Respiratory Rate 16 07/14/23 13:25 Blood Pressure 135/59 L 07/14/23 13:25 Pulse Oximetry 96 07/14/23 13:25 Oxygen Delivery Method Room Air 07/14/23 13:25 <DO Marcus Tadeo Last Filed: 07/15/23 07:49> Initial Vital Signs Initial Vital Signs: Vital Signs Temperature 97.6 F 07/14/23 13:25 Pulse Rate 72 07/14/23 13:25 Respiratory Rate 16 07/14/23 13:25 Blood Pressure 135/59 L 07/14/23 13:25 Pulse Oximetry 96 07/14/23 13:25 Oxygen Delivery Method Room Air 07/14/23 13:25 Course <Renny Gonzales PA-C - Last Filed: 07/14/23 19:34> Orders Ordered: ED Orders 07/14/23 13:34 Consult to [facility] - Store Receiving Clerk Stat Vital Signs Vital signs: Vital Signs - 8 hr 07/14/23 13:25 Temperature 97.6 F Pulse Rate 72 Respiratory Rate 16 Blood Pressure 135/59 L Pulse Oximetry 96 Oxygen Delivery Method Room Air <DO Marcus Tadeo Last Filed: 07/15/23 07:49> Orders Ordered: ED Orders 07/14/23 13:34 Consult to [facility] [place] Store Receiving Clerk Stat Vital Signs Vital signs: Vital Signs - 8 hr 07/14/23 13:25 Temperature 97.6 F Pulse Rate 72 Respiratory Rate 16 Blood Pressure 135/59 L Pulse Oximetry 96 Oxygen Delivery Method Room Air MDM - Recheck/Abnormal Lab/Rx <Renny Gonzales PA-C - Last Filed: 07/14/23 19:34> MDM Narrative Medical decision making narrative: 72-year-old male status post a back surgery on 07/03/2023, had a urinary catheter inserted due to urinary retention after the procedure. Patient's urinary catheter tube and bag were replaced successfully. Recommend patient follow-up with [facility] for further evaluation of the catheter. Recommend follow-up with PCP Dr. Guzman as well. ED return precautions were discussed with patient. Patient verbalized understanding. Medical records reviewed: Yes Discharge Plan Departure Patient Disposition: Home Clinical Impression: Abbasi catheter problem Instructions: How to Care for Your Abbasi Catheter -- Male Activity Restrictions/Additional Instructions: You were evaluated in the ED today for a Abbasi catheter bag that was leaking. The bag and tubing was replaced successfully. You will need to follow-up with the urologist for further evaluation of the catheter and possible removal of catheter. You may follow-up with [facility] at [phone] and make an appointment. Please follow-up with your PCP Dr. Guzman as soon as possible as well. Return to the ED if your catheter fails to drain, you develop fever, chills, nausea, vomiting. Prescriptions: No Action nortriptyline 50 mg capsule See Rx Instructions PO HS Qty: 180 3RF Dose Instruction: 1-2 caps PO HS; Rx Instructions: 1-2 caps PO HS; tamsulosin 0.4 mg capsule 0.4 mg PO DAILY Qty: 90 3RF metformin 500 mg tablet extended release 24 hr 1,000 mg PO BID Qty: 360 3RF (DME) pen needle, diabetic [1st Tier Unifine Pentips] 31 gauge x 5/16 needle See Rx Instructions .Route Qty: 100 3RF Rx Instructions: Use to administer insulin bid and as necessary atorvastatin 20 mg tablet 20 mg PO DAILY Qty: 90 3RF omeprazole 40 mg capsule,delayed release(DR/EC) 40 mg PO BID Qty: 60 3RF (DME) FreeStyle Tara 14 Day [place] Misc See Rx Instructions .ROUTE .MEDSUPPLY Qty: 1 0RF Rx Instructions: USE FOR CONTINUOUS BLOOD GLUCOSE MONITORING. REPLACE EVERY YEAR. (DME) FreeStyle Tara 14 Day Sensor Kit See Rx Instructions .ROUTE .MEDSUPPLY Qty: 1 12RF Rx Instructions: USE FOR CONTINUOUS GLUCOSE MONITORING. REPLACE EVERY 30 DAYS. (DME) Dexcom G6 Sensor Device See Rx Instructions .Route Qty: 3 3RF Rx Instructions: As directed (DME) Dexcom G6 Boxing Inspector Misc See Rx Instructions .Route Qty: 1 0RF Rx Instructions: As directed (DME) Dexcom G6 Transmitter Device See Rx Instructions .Route Qty: 1 0RF Rx Instructions: As directed levetiracetam 500 mg tablet 250 mg PO BID Rx Instructions: 250 PO BID for 2 weeks, then increase to 500mg BID. Humulin 70/30 U-100 KwikPen 100 unit/mL (70-30) insulin pen 25 unit SUBCUT BID Qty: 200 10RF Patient Comments: pt took 12 units this morning for surgery (only 1/2 his dose as instructed) Rx Instructions: 25 units twice daily, SUBCUT ; (DME) blood-glucose meter [Blood Glucose Monitoring] Kit See Rx Instructions .ROUTE .MEDSUPPLY Qty: 1 0RF Rx Instructions: As directed ([facility] [place]) Glucose: Test Strips 0 .Route .MEDSUPPLY Qty: 500 11RF Rx Instructions: Use as directed to check blood sugar up to 4 times daily oxycodone 5 mg tablet 5 mg PO Q6H PRN (Reason: pain) Qty: 60 0RF magnesium oxide 400 mg (241.3 mg magnesium) tablet 400 mg PO BID Qty: 180 3RF carvedilol 25 mg tablet 25 mg PO BID Qty: 180 3RF Rx Instructions: must administer with a meal/food gabapentin 300 mg capsule 300 mg PO BID Rx Instructions: patient requests this w/ dinner instead of HS docusate sodium 100 mg Capsule 100 mg PO BID PRN (Reason: constipation) Qty: 60 1RF hydroxyzine pamoate 25 mg Capsule 25 mg PO Q4HR PRN (Reason: muscle spasm) Qty: 60 0RF oxycodone 5 mg tablet 5 mg PO Q4-6H PRN (Reason: pain, moderate) Qty: 60 0RF acetaminophen 325 mg Tablet 650 mg PO Q6HR PRN (Reason: Fever/Mild Pain (1-3)) Qty: 60 0RF ivabradine 5 mg Tablet 5 mg PO BID Qty: 180 3RF sacubitril-valsartan 24-26 mg Tablet 1 tab PO BID Qty: 180 3RF Referrals: Salvador Guzman MD [Primary Care Provider] - Stand Alone Forms: Patient Portal/API <Nilda Garcia DO - Last Filed: 07/15/23 07:49> Cosign ED Attending Jaature Attestation: I was immediately available in the department for consultation. Documentation has been reviewed.
== END 2023-07-14 14:25 | disposition home or self-care (01) ==
PROVIDERS: Emergency Provider Student in an Organized Health Care Education/Training Program; PCP Internal Medicine
DX: T83.9XXA Unspecified complication of genitourinary prosthetic device, implant and graft, initial encounter (principal)
CPT/HCPCS: 99281

== ENCOUNTER 2023-07-24 20:14 | Emergency (ER) | payer MEDICARE, SELFPAY ==
[2023-03-24 18:11] VITALS: PULSE 55; RESP 16; O2SAT 100
[2023-07-03 18:53] VITALS: BMI 27.2
[2023-07-24 20:19] VITALS: BP 153/68; PULSE 73; RESP 18; TEMP 36.6; O2SAT 98; BMI 26.6
--- NOTE | 2023-07-24 20:46 | PC.NURSE ---
Recent back surgery with need of urinary catheter placement after. Had catheter removed on the the . States last able to urinate last night.
[2023-07-24] MEDS: LIDOCAINE 2% (GLYDO) 6 ML GEL TOP (20:57)
--- NOTE | 2023-07-24 23:19 | ED_ITS ---
HPI - Male Genitourinary General Chief complaint: Urogenital-Male Stated complaint: urinary issues Time Seen by Provider: 07/24/23 23:11 Source: patient Mode of arrival: Ambulatory History of Present Illness HPI Narrative: Patient 72-year-old male status post lumbar TLIF on 07/03/2023 has since had ongoing urinary retention. He was seen by Urology 1 or 2 days ago where he finally has a catheter removed after it being in place for about 19 days. He had follow-up with Urology where he had a postvoid residual. However last night was the last time he urinated. No having difficulty with urination. He was seen here previously diagnosed with constipation was started on MiraLax reports that he does not feel constipated and he has yet to have a bowel movement. Related Data Home Medications Medication Instructions Recorded Confirmed levetiracetam 500 mg tablet 250 mg PO BID 03/14/23 07/22/23 Previous Rx's Medication Instructions Recorded nortriptyline 50 mg capsule See Rx Instructions PO HS #180 caps 04/30/21 Glucose: Test Strips #500 ea 08/27/21 blood-glucose meter (Blood Glucose #1 ea 08/27/21 Monitoring kit) acetaminophen 325 mg tablet 650 mg PO Q6HR PRN Fever/Mild Pain 05/18/22 (1-3) #60 tabs flash glucose scanning reader #1 ea 06/20/22 (FreeStyle Tara 14 Day [place]) flash glucose sensor (FreeStyle #1 ea 06/20/22 Tara 14 Day Sensor kit) blood-glucose meter,continuous #1 ea 06/26/22 (Dexcom G6 Support Teacher) blood-glucose sensor (Dexcom G6 #3 ea 06/26/22 Sensor device) blood-glucose transmitter (Dexcom #1 ea 06/26/22 G6 Transmitter device) carvedilol 25 mg tablet 25 mg PO BID #180 tabs 10/16/22 magnesium oxide 400 mg (241.3 mg 400 mg PO BID #180 tabs 10/16/22 magnesium) tablet metformin 500 mg tablet,extended 1,000 mg PO BID #360 tabs 01/06/23 release 24 hr ivabradine 5 mg tablet 5 mg PO BID #180 tabs 02/28/23 sacubitril 24 mg-valsartan 26 mg 1 tab PO BID #180 tabs 02/28/23 tablet insulin NPH-regular 70-30 U-100 25 unit (0.25 mL) SUBCUT BID #200 04/04/23 insulin 100 unit/mL subcutaneous mL pen (Humulin 70/30 U-100 KwikPen) pen needle, diabetic 31 gauge x #100 ea 04/04/2303/18 (1st Tier Unifine Pentips) oxycodone 5 mg tablet 5 mg PO Q6H PRN pain #60 tabs 06/27/23 atorvastatin 20 mg tablet 20 mg PO DAILY #90 tabs 06/30/23 omeprazole 40 mg capsule,delayed 40 mg PO BID #60 caps 06/30/23 release docusate sodium 100 mg capsule 100 mg PO BID PRN constipation #60 07/04/23 caps hydroxyzine pamoate 25 mg capsule 25 mg PO Q4HR PRN muscle spasm #60 07/04/23 caps oxycodone 5 mg tablet 5 mg PO Q4-6H PRN pain, moderate 07/04/23 #60 tabs clopidogrel 75 mg tablet 75 mg PO DAILY #90 tabs 07/15/23 gabapentin 300 mg capsule 300 mg PO BID #180 caps 07/15/23 fosfomycin tromethamine 3 gram 3 g PO ONCE #1 ea 07/21/23 oral packet (Monurol) tamsulosin 0.4 mg capsule 0.8 mg PO DAILY #180 caps 07/23/23 Allergies Allergy/AdvReac Type Severity Reaction Status Date / Time No Known Drug Allergies Allergy Verified 07/22/23 14:00 Review of Systems Review of Systems ROS Unobtainable: All systems reviewed & are unremarkable except as noted in HPI and below Patient History Medical History Acute GI bleeding Automatic implantable cardiac defibrillator in situ (~07/2019) Benign prostatic hyperplasia Bladder outlet obstruction Cerebrovascular accident Degeneration of intervertebral disc of cervical region Diabetic peripheral neuropathy (07/25/15) Essential hypertension History of depression History of pacemaker Hx of congestive heart failure Hx of skin cancer, basal cell Incomplete emptying of bladder senior living current use of insulin (08/20/16) Lower urinary tract symptoms Mixed hyperlipidemia Nonischemic cardiomyopathy (09/09/16) Type 2 diabetes mellitus with hyperglycemia, with long-term current use of insulin Type 2 diabetes mellitus without complication Urinary retention Surgical History History of back surgery Social History marital status: number of children: 0 household members: none lives independently: Yes caregiver/support person: Yes housing: house pets and animals: Yes education level: other (Bachelor's Degree) occupational status: previously employed and other (Retired) current occupational exposures/hazards: No 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 travel history: recent leisure activities: music, reading and other (Hiking.) Smoking Status: Never smoker quit status: quit date established second hand exposure: No alcohol intake: current substance use type: does not use caffeine: Yes Type(s) of exercise: walking frequency: 3-4 times per week Smoking Status: Never smoker alcohol intake frequency: a few times a week Alcohol type: hard liquor Substance Use Type: does not use Exam Initial Vital Signs Initial Vital Signs: Vital Signs Temperature 98 F 07/24/23 20:19 Pulse Rate 73 07/24/23 20:19 Respiratory Rate 18 07/24/23 20:19 Blood Pressure 153/68 H 07/24/23 20:19 Pulse Oximetry 98 07/24/23 20:19 Oxygen Delivery Method Room Air 07/24/23 20:19 GENERAL: Alert 72-year-old male CARDIOVASCULAR: peripheral pulses in tact, cap refill <2 sec RESPIRATORY: No respiratory distress, speaks in full sentences without difficulty : Abbasi catheter in place EXTREMITIES: Normal range of motion, no clubbing or edema. Neurovascularly intact NEUROLOGICAL: Cranial nerves II through XII grossly intact. Normal gait and speech. SKIN: Warm, dry, no petechiae, no rashes or lesions. Course Orders Ordered: Discontinued Medications Lidocaine HCl (Lidocaine 2% (Glydo) 6 Ml Gel) 6 ml TOP NOW ONE Stop: 07/24/23 20:34 Last Admin: 07/24/23 20:57 Dose: 6 ml Documented By: TD Vital Signs Vital signs: Vital Signs - 8 hr 07/24/23 23:42 Pulse Rate 76 Respiratory Rate 20 Blood Pressure 148/78 H Pulse Oximetry 100 Oxygen Delivery Method Room Air MDM - Male Genitourinary Lab Data Labs: Urine Dip Bedside Urine Glucose 100 mg/dl Bedside Urine Bilirubin - Negative Bedside Urine Ketone - Negative Urine Specific [place] 1.010 Bedside Urine Occult Blood - Negative Bedside Urine pH 6.0 Bedside Urine Protein - Negative Bedside Urine Urobilinogen - Negative Bedside Urine Nitrite - Negative Bedside Urine Leukocytes - Negative Esterase MDM Narrative Medical decision making narrative: Patient 72-year-old male recent lumbar fusion with postop urinary retention presenting today with urinary retention. Had Abbasi catheter removed 2 days ago is followed now by Urology. Abbasi catheter placed in ED he is had 2 L out overall feeling better. No fevers urinalysis has been reviewed and is negative. This time recommend outpatient follow-up with Urology he has a outpatient follow-up with Dr. Hanson next month Discharge Plan Departure Patient Disposition: Home Clinical Impression: Acute urinary retention Instructions: DI for Urinary Retention in Men Activity Restrictions/Additional Instructions: *You have been diagnosed with urinary retention *What to do: Please keep Abbasi catheter in place. Follow-up with Dr. Ivan *Continue to take medications as directed *Follow up with your primary care provider in 2-3 days or call [phone] Ivan tomorrow to schedule follow-up *Return to ER if you should have catheter not working, blood in urine or any new, worsening or concerning symptoms Prescriptions: No Action nortriptyline 50 mg capsule See Rx Instructions PO HS Qty: 180 3RF Dose Instruction: 1-2 caps PO HS; Rx Instructions: 1-2 caps PO HS; metformin 500 mg tablet extended release 24 hr 1,000 mg PO BID Qty: 360 3RF (DME) pen needle, diabetic [1st Tier Unifine Pentips] 31 gauge x 5/16 needle See Rx Instructions .Route Qty: 100 3RF Rx Instructions: Use to administer insulin bid and as necessary atorvastatin 20 mg tablet 20 mg PO DAILY Qty: 90 3RF omeprazole 40 mg capsule,delayed release(DR/EC) 40 mg PO BID Qty: 60 3RF gabapentin 300 mg capsule 300 mg PO BID Qty: 180 3RF Rx Instructions: patient requests this w/ dinner instead of HS clopidogrel 75 mg tablet 75 mg PO DAILY Qty: 90 3RF fosfomycin tromethamine [Monurol] 3 gram packet 3 g PO ONCE Qty: 1 0RF Rx Instructions: Take one tablet by mouth one day prior to procedure. tamsulosin 0.4 mg capsule 0.8 mg PO DAILY Qty: 180 3RF (DME) FreeStyle Tara 14 Day [place] Misc See Rx Instructions .ROUTE .MEDSUPPLY Qty: 1 0RF Rx Instructions: USE FOR CONTINUOUS BLOOD GLUCOSE MONITORING. REPLACE EVERY YEAR. (DME) FreeStyle Tara 14 Day Sensor Kit See Rx Instructions .ROUTE .MEDSUPPLY Qty: 1 12RF Rx Instructions: USE FOR CONTINUOUS GLUCOSE MONITORING. REPLACE EVERY 30 DAYS. (DME) Dexcom G6 Sensor Device See Rx Instructions .Route Qty: 3 3RF Rx Instructions: As directed (DME) Dexcom G6 Support Teacher Misc See Rx Instructions .Route Qty: 1 0RF Rx Instructions: As directed [place] [place] Dexcom G6 Transmitter Device See Rx Instructions .Route Qty: 1 0RF Rx Instructions: As directed levetiracetam 500 mg tablet 250 mg PO BID Rx Instructions: 250 PO BID for 2 weeks, then increase to 500mg BID. Humulin 70/30 U-100 KwikPen 100 unit/mL (70-30) insulin pen 25 unit SUBCUT BID Qty: 200 10RF Patient Comments: pt took 12 units this morning for surgery (only 1/2 his dose as instructed) Rx Instructions: 25 units twice daily, SUBCUT ; (DME) blood-glucose meter [Blood Glucose Monitoring] Kit See Rx Instructions .ROUTE .MEDSUPPLY Qty: 1 0RF Rx Instructions: As directed [place] [facility] [place] Glucose: Test Strips 0 .Route .MEDSUPPLY Qty: 500 11RF Rx Instructions: Use as directed to check blood sugar up to 4 times daily oxycodone 5 mg tablet 5 mg PO Q6H PRN (Reason: pain) Qty: 60 0RF magnesium oxide 400 mg (241.3 mg magnesium) tablet 400 mg PO BID Qty: 180 3RF carvedilol 25 mg tablet 25 mg PO BID Qty: 180 3RF Rx Instructions: must administer with a meal/food docusate sodium 100 mg Capsule 100 mg PO BID PRN (Reason: constipation) Qty: 60 1RF hydroxyzine pamoate 25 mg Capsule 25 mg PO Q4HR PRN (Reason: muscle spasm) Qty: 60 0RF oxycodone 5 mg tablet 5 mg PO Q4-6H PRN (Reason: pain, moderate) Qty: 60 0RF acetaminophen 325 mg Tablet 650 mg PO Q6HR PRN (Reason: Fever/Mild Pain (1-3)) Qty: 60 0RF ivabradine 5 mg Tablet 5 mg PO BID Qty: 180 3RF sacubitril-valsartan 24-26 mg Tablet 1 tab PO BID Qty: 180 3RF Referrals: Salvador Guzman MD [Primary Care Provider] - Stand Alone Forms: Patient Portal/API
[2023-07-24 23:42] VITALS: BP 148/78; PULSE 76; RESP 20; O2SAT 100
== END 2023-07-24 23:52 | disposition home or self-care (01) ==
PROVIDERS: Emergency Provider Emergency Medicine; PCP Internal Medicine
DX: R33.9 Retention of urine, unspecified (principal)
CPT/HCPCS: 51702; 51798; 81003; 99283

== ENCOUNTER → 2023-08-19 08:16 | Outpatient (CLI) | payer MEDICARE, SELFPAY ==
[2023-03-24 18:11] VITALS: PULSE 55; RESP 16; O2SAT 100
[2023-07-03 18:53] VITALS: BMI 27.2
[2023-08-19 10:00] LABS: Hemoglobin A1C% w Est Avg Glu 8.3 % (4.0-6.0)
[2023-08-19 10:29] LABS: Alanine Aminotransferase 15 IU/L (<50); Albumin Globulin Ratio 1.5 (1.0-2.8); Alkaline Phosphatase 87 U/L (38-126); Aspartate Aminotransferase 17 IU/L (17-59); BUN Creatinine Ratio 19.4 (6-22); Bilirubin Total 0.7 mg/dL (0.2-1.3); Blood Urea Nitrogen 12 mg/dL (9-20); Calcium 8.9 mg/dL (8.4-10.2); Carbon Dioxide 25 mmol/L (22-32); Chloride 101 mmol/L (98-107); Cholesterol 98 mg/dL (140-199); Estimated Glomerular Filt Rate > 60 mL/min (>60); Globulin 2.7 g/dL (1.7-4.1); Glucose 242 mg/dL (80-110); HDL Cholesterol 30 mg/dL (40-60); HEMOLYSIS < 15 (0-50); LDL Cholesterol Calculated 34 mg/dL (<100); Potassium 4.2 mmol/L (3.4-5.1); Sodium 135 mmol/L (137-145); Total Protein 6.7 g/dL (6.3-8.2); Triglycerides 171 mg/dL (35-150)
[2023-08-19 11:03] LABS: Creatinine Urine Random 108.3 mg/dL
[2023-08-19 11:10] LABS: Microalbumi Creatinin Ratio Ur 115.4 ug/mg CR (<30); Microalbumin Urine Random 12.5 mg/dL (0-1.6)
== END ==
PROVIDERS: PCP Internal Medicine; Referring Provider Internal Medicine; Visit Provider Internal Medicine
DX: E11.9 Type 2 diabetes mellitus without complications (principal); I10 Essential (primary) hypertension; E78.2 Mixed hyperlipidemia; R33.9 Retention of urine, unspecified; N32.0 Bladder-neck obstruction; R39.9 Unspecified symptoms and signs involving the genitourinary system
CPT/HCPCS: 36415; 51798; 80053; 80061; 81002; 82043; 82570; 83036; 87086

== ENCOUNTER → 2023-08-20 16:05 | Outpatient (CLI) | payer MEDICARE, SELFPAY ==
[2023-08-20 11:36] VITALS: PULSE 55; RESP 16; O2SAT 100; BMI 27.2
== END ==
PROVIDERS: PCP Internal Medicine; Visit Provider Urology
DX: Z97.8 Presence of other specified devices (principal); R33.9 Retention of urine, unspecified
CPT/HCPCS: 51702; 51798; 87086

== ENCOUNTER → 2023-09-03 14:49 | Outpatient (CLI) | payer MEDICARE, SELFPAY ==
[2023-08-20 11:36] VITALS: PULSE 55; RESP 16; O2SAT 100; BMI 27.2
== END ==
PROVIDERS: PCP Internal Medicine; Visit Provider Urology
DX: N40.1 Benign prostatic hyperplasia with lower urinary tract symptoms (principal); R39.9 Unspecified symptoms and signs involving the genitourinary system
CPT/HCPCS: 51798; 52000; 87086

== ENCOUNTER → 2023-09-17 09:35 | Outpatient (CLI) | payer MEDICARE, SELFPAY ==
[2023-08-20 11:36] VITALS: PULSE 55; RESP 16; O2SAT 100; BMI 27.2
== END ==
PROVIDERS: PCP Internal Medicine; Visit Provider Urology
DX: Z97.8 Presence of other specified devices (principal); R33.9 Retention of urine, unspecified; N32.0 Bladder-neck obstruction; R39.9 Unspecified symptoms and signs involving the genitourinary system
CPT/HCPCS: 51702; 76872; 87086

== ENCOUNTER → 2023-11-05 13:34 | Outpatient (CLI) | payer MEDICARE, SELFPAY ==
[2023-09-17 09:38] VITALS: PULSE 55; RESP 16; O2SAT 100; BMI 27.2
[2023-11-05 16:33] LABS: Add Manual Diff / Slide Review NO; Basophils Absolute Auto 0 /uL (0-100); Basophils Percent Auto 0.3 % (0-2); Eosinophils Absolute Auto 100 /uL (0-450); Eosinophils Percent Auto 2.1 % (2-4); Hematocrit 35.2 % (41-53); Hemoglobin 12.3 g/dL (13.5-17.5); Lymphocytes Absolute Auto 900 /uL (1100-4500); Mean Corpuscular Volume 91.6 fL (80-100); Monocytes Absolute Auto 500 /uL (0-900); Monocytes Percent Auto 10.9 % (3-14); Neutrophils Absolute Auto 3300 /uL (1500-7000); Neutrophils Percent Auto 67.7 % (50-75); Platelet Count 162 X10^3/uL (150-400); Red Blood Cell Count 3.85 X10^6/uL (4.5-5.9); Red Cell Distribution Width 13.9 % (11.6-14.8); White Blood Cell Count 4.9 X10^3/uL (4.5-11.0)
[2023-11-05 17:01] LABS: Alanine Aminotransferase 13 IU/L (<50); Albumin 3.5 g/dL (3.5-5.0); Albumin Globulin Ratio 1.1 (1.0-2.8); Alkaline Phosphatase 106 U/L (38-126); BUN Creatinine Ratio 17.5 (6-22); Bilirubin Total 0.8 mg/dL (0.2-1.3); Blood Urea Nitrogen 11 mg/dL (9-20); Calcium 7.3 mg/dL (8.4-10.2); Carbon Dioxide 25 mmol/L (22-32); Chloride 98 mmol/L (98-107); Estimated Glomerular Filt Rate > 60 mL/min (>60); Globulin 3.3 g/dL (1.7-4.1); Glucose 290 mg/dL (80-110); Potassium 3.7 mmol/L (3.4-5.1); Sodium 134 mmol/L (137-145); Total Protein 6.8 g/dL (6.3-8.2)
[2023-11-05 17:32] LABS: TSH w/ Reflex to FT4 1.55 uIU/mL (0.47-4.68)
[2023-11-07 15:54] LABS: HEMOLYSIS 24 (0-50)
[2023-11-07 15:55] LABS: Aspartate Aminotransferase 21 IU/L (17-59)
[2023-11-07 18:18] LABS: Hep C Virus Ab w/Reflex Quant NEGATIVE s/c (NEGATIVE)
== END ==
LOC: LAB 13:35
PROVIDERS: PCP Internal Medicine; Referring Provider Physician Assistant; Visit Provider Physician Assistant
DX: E11.65 Type 2 diabetes mellitus with hyperglycemia (principal); Z79.4 Long term (current) use of insulin
CPT/HCPCS: 36415; 80053; 84443; 85025; 86803

== ENCOUNTER → 2023-11-13 16:52 | Outpatient (CLI) | payer MEDICARE, SELFPAY ==
[2023-09-17 09:38] VITALS: PULSE 55; RESP 16; O2SAT 100; BMI 27.2
--- NOTE | 2023-11-13 17:09 | DI.RAD.S_ITS ---
PROCEDURE: XR ACUTE ABDOMEN SERIES INDICATIONS: abdominal pain/constipation TECHNIQUE: One view chest and two views of the abdomen were acquired. COMPARISON: , , ABDOMEN ACUTE SERIES, 12/31/2017, 17:06. FINDINGS: Surgical changes and devices: Left chest wall generator with cardiac lead. Interbody and posterior surgical fusion at L4-5. Chest: Lungs are clear. Heart size is normal. No pleural effusions. No pneumoperitoneum. Abdomen: Bowel gas pattern is normal. No suspicious calcifications. Visualized solid organ contours appear normal. Moderate colonic stool load. Bones: No suspicious bony lesions. IMPRESSION: No acute abnormality. Moderate colonic stool load. Dictated by: Panda Moreira M.D. on 11/14/2023 at 10:25 Approved by: Panda Moreira M.D. on 11/14/2023 at 10:26
[2023-11-13 19:25] LABS: Appearance Urine UA CLOUDY; Bilirubin Urine UA NEGATIVE (NEGATIVE); Color Urine UA YELLOW; Glucose Urine UA 1+ g/dL (Negative); Ketones Urine UA NEGATIVE (NEGATIVE); Leukocyte Esterase Urine UA 2+ (NEGATIVE); Nitrite Urine UA POSITIVE (Negative); Occult Blood Urine UA NEGATIVE (Negative); Protein Urine UA 1+ (Negative); Urobilinogen Urine UA 0.2 E.U./dL (0.2); pH Urine UA 5.5 (4.5-8.0)
[2023-11-13 20:17] LABS: Bacteria Urine Many (>30); Culture Indicated Urine Specimen Cultured; RBC Urine 0-1/HPF (0-5/HPF); Squamous Epithelial Cell Urine 0-1 /HPF (0-5/HPF); WBC Urine 30-100/HPF (0-5/HPF)
== END ==
PROVIDERS: PCP Internal Medicine; Referring Provider Internal Medicine; Visit Provider Internal Medicine
DX: R33.9 Retention of urine, unspecified (principal); K59.00 Constipation, unspecified; R10.9 Unspecified abdominal pain
CPT/HCPCS: 74022; 81001; 87077; 87086; 87186

== ENCOUNTER → 2023-11-15 12:41 | Outpatient (CLI) | payer MEDICARE, SELFPAY ==
[2023-09-17 09:38] VITALS: PULSE 55; RESP 16; O2SAT 100; BMI 27.2
[2023-11-17 14:42] LABS: Fecal Immunochemical Test Negative (Negative)
== END ==
LOC: LAB 12:43
PROVIDERS: PCP Internal Medicine; Referring Provider Internal Medicine; Visit Provider Physician Assistant
DX: E11.65 Type 2 diabetes mellitus with hyperglycemia (principal); Z79.4 Long term (current) use of insulin
CPT/HCPCS: 82274; 87177

== ENCOUNTER → 2023-11-25 08:47 | Outpatient (CLI) | payer MEDICARE, SELFPAY ==
[2023-09-17 09:38] VITALS: PULSE 55; RESP 16; O2SAT 100; BMI 27.2
[2023-11-25 10:47] LABS: BUN Creatinine Ratio 16.4 (6-22); Blood Urea Nitrogen 9 mg/dL (9-20); Calcium 8.2 mg/dL (8.4-10.2); Carbon Dioxide 27 mmol/L (22-32); Chloride 101 mmol/L (98-107); Estimated Glomerular Filt Rate > 60 mL/min (>60); Glucose 155 mg/dL (80-110); HEMOLYSIS < 15 (0-50); Potassium 3.1 mmol/L (3.4-5.1); Sodium 139 mmol/L (137-145)
[2023-11-25 10:52] LABS: Hemoglobin A1C% w Est Avg Glu 8.7 % (4.0-6.0)
== END ==
PROVIDERS: PCP Internal Medicine; Referring Provider Internal Medicine; Visit Provider Internal Medicine
DX: E11.65 Type 2 diabetes mellitus with hyperglycemia (principal); Z79.4 Long term (current) use of insulin
CPT/HCPCS: 36415; 80048; 83036

== ENCOUNTER → 2023-12-31 09:24 | Outpatient (CLI) | payer MEDICARE, SELFPAY ==
[2023-09-17 09:38] VITALS: PULSE 55; RESP 16; O2SAT 100; BMI 27.2
[2023-12-31 11:17] LABS: BUN Creatinine Ratio 20.7 (6-22); Blood Urea Nitrogen 12 mg/dL (9-20); Calcium 8.1 mg/dL (8.4-10.2); Carbon Dioxide 22 mmol/L (22-32); Chloride 102 mmol/L (98-107); Estimated Glomerular Filt Rate > 60 mL/min (>60); Glucose 268 mg/dL (80-110); HEMOLYSIS < 15 (0-50); Sodium 135 mmol/L (137-145)
[2023-12-31 11:19] LABS: Hemoglobin A1C% w Est Avg Glu 8.6 % (4.0-6.0)
[2023-12-31 15:03] LABS: Magnesium 0.7 mg/dL (1.6-2.3)
== END ==
LOC: LAB 09:25
PROVIDERS: PCP Internal Medicine; Referring Provider Internal Medicine; Visit Provider Internal Medicine
DX: E11.65 Type 2 diabetes mellitus with hyperglycemia (principal); Z79.4 Long term (current) use of insulin; I10 Essential (primary) hypertension
CPT/HCPCS: 36415; 80048; 83036; 83735

== ENCOUNTER → 2024-01-05 14:34 | Outpatient (CLI) | payer MEDICARE, SELFPAY ==
[2023-09-17 09:38] VITALS: PULSE 55; RESP 16; O2SAT 100; BMI 27.2
[2024-01-05 16:03] LABS: BUN Creatinine Ratio 13.6 (6-22); Blood Urea Nitrogen 9 mg/dL (9-20); Calcium 7.9 mg/dL (8.4-10.2); Carbon Dioxide 30 mmol/L (22-32); Chloride 103 mmol/L (98-107); Estimated Glomerular Filt Rate > 60 mL/min (>60); Glucose 262 mg/dL (80-110); HEMOLYSIS < 15 (0-50); Sodium 137 mmol/L (137-145)
== END ==
PROVIDERS: PCP Internal Medicine; Referring Provider Internal Medicine; Visit Provider Internal Medicine
DX: I10 Essential (primary) hypertension (principal); E87.6 Hypokalemia; E83.42 Hypomagnesemia
CPT/HCPCS: 36415; 80048; 83735

== ENCOUNTER 2024-02-05 21:02 | Inpatient (IN) | payer MEDICARE, SELFPAY ==
[2023-09-17 09:38] VITALS: PULSE 55; RESP 16; O2SAT 100; BMI 27.2
[2024-02-05] VITALS (9 sets, daily range): BP systolic 159–181; BP diastolic 81–86; PULSE 83–91; RESP 22–39; TEMP 37.2–39; O2SAT 91–96; BMI 25.0
--- NOTE | 2024-02-05 21:24 | DI.RAD.S_ITS ---
PROCEDURE: XR CHEST 1V INDICATIONS: suspected sepsis TECHNIQUE: One view of the chest was acquired. COMPARISON: [facility], CR, XR CHEST 1V, 03/24/2023, 17:50. FINDINGS: Surgical changes and devices: Pacemaker Lungs and pleura: Lungs are clear. No pleural effusions or pneumothorax. Mediastinum: Mediastinal contours appear normal. Heart size is normal. Bones and chest wall: No suspicious bony lesions. Overlying soft tissues appear unremarkable. IMPRESSION: No acute cardiopulmonary abnormality is seen. Dictated by: Oliver Valdivia M.D. on 02/05/2024 at 22:21 Approved by: Oliver Valdivia M.D. on 02/05/2024 at 22:22
[2024-02-05 21:39] LABS: INR 1.1 (0.9-1.3); Prothrombin Time 12.4 SECONDS (9.4-12.5)
[2024-02-05 21:41] LABS: PTT Partial Thromboplastin Tim 21 SECONDS (25.1-36.5)
--- NOTE | 2024-02-05 21:44 | ED_ITS ---
HPI - Weakness General Chief complaint: Weakness Stated complaint: weakness Time Seen by Provider: 02/05/24 21:08 Source: patient and other Mode of arrival: Wheelchair History of Present Illness HPI Narrative: 73-year-old male with history of BPH, pacemaker, congestive heart failure, CVA with no residual deficits, insulin-dependent diabetes presents by private vehicle from home for fever, generalized weakness. History is mostly obtained with help of his neighbor at bedside. Neighbor states that yesterday the patient appeared to be ill, but this evening the patient knocked on his door, shivering and stating that he felt ?terrible?. Patient noted to be febrile and tachycardic on arrival. Patient denying pain, simply stating that he felt poorly. Related Data Home Medications Medication Instructions Recorded Confirmed levetiracetam 500 mg tablet 250 mg PO BID 03/14/23 02/06/24 sacubitril 49 mg-valsartan 51 mg 1 tab PO BID 01/05/24 02/06/24 tablet (Entresto) Previous Rx's Medication Instructions Recorded nortriptyline 50 mg capsule See Rx Instructions PO HS #180 caps 04/30/21 Glucose: Test Strips #500 ea 08/27/21 blood-glucose meter (Blood Glucose #1 ea 08/27/21 Monitoring kit) acetaminophen 325 mg tablet 650 mg (2 x 325 mg) PO Q6HR PRN 05/18/22 Fever/Mild Pain (1-3) #60 tabs carvedilol 25 mg tablet 25 mg PO BID #180 tabs 10/16/22 ivabradine 5 mg tablet 5 mg PO BID #180 tabs 02/28/23 insulin NPH-regular 70-30 U-100 25 unit (0.25 mL) SUBCUT BID #200 04/04/23 insulin 100 unit/mL subcutaneous mL pen (Humulin 70/30 U-100 KwikPen) pen needle, diabetic 31 gauge x #100 ea 04/04/2303/18 (1st Tier Unifine Pentips) atorvastatin 20 mg tablet 20 mg PO DAILY #90 tabs 06/30/23 omeprazole 40 mg capsule,delayed 40 mg PO BID #60 caps 06/30/23 release tamsulosin 0.4 mg capsule 0.8 mg (2 x 0.4 mg) PO DAILY #180 07/23/23 caps finasteride 5 mg tablet 5 mg PO DAILY #90 tabs 08/20/23 magnesium oxide 400 mg (241.3 mg 400 mg PO BID #180 tabs 11/10/23 magnesium) tablet potassium chloride 10 mEq 10 meq PO DAILY #90 tabs 11/28/23 tablet,extended release gabapentin 300 mg capsule See Rx Instructions PO BID #270 01/05/24 caps oxycodone 5 mg tablet 5 mg PO Q4-6H PRN pain, moderate 01/05/24 #60 tabs metformin 500 mg tablet,extended 1,000 mg (2 x 500 mg) PO BID #360 01/19/24 release 24 hr tabs Allergies Allergy/AdvReac Type Severity Reaction Status Date / Time No Known Drug Allergies Allergy Verified 01/05/24 13:57 Review of Systems Review of Systems Narrative: See HPI Patient History Medical History Incomplete emptying of bladder Bladder outlet obstruction Benign prostatic hyperplasia Lower urinary tract symptoms History of pacemaker History of depression Hx of congestive heart failure Hx of skin cancer, basal cell Acute GI bleeding Cerebrovascular accident Automatic implantable cardiac defibrillator in situ (~07/2019) Nonischemic cardiomyopathy (09/09/16) longterm current use of insulin (08/20/16) Type 2 diabetes mellitus with hyperglycemia, with long-term current use of insulin Diabetic peripheral neuropathy (07/25/15) Degeneration of intervertebral disc of cervical region Essential hypertension Mixed hyperlipidemia Type 2 diabetes mellitus without complication Surgical History History of back surgery S/P lumbar fusion Social History marital status: number of children: 0 household members: none lives independently: Yes caregiver/support person: Yes housing: house pets and animals: Yes education level: other occupational status: previously employed and other current occupational exposures/hazards: No 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/mandaen: [employer] travel history: recent leisure activities: music, reading and other Smoking Status: Never smoker quit status: quit date established second hand exposure: No alcohol intake: current substance use type: does not use caffeine: Yes Type(s) of exercise: walking frequency: 3-4 times per week Smoking Status: Never smoker alcohol intake frequency: a few times a week Alcohol type: hard liquor Substance Use Type: does not use Exam Initial Vital Signs Initial Vital Signs: Vital Signs Temperature 99 F 02/05/24 21:19 Pulse Rate 91 H 02/05/24 21:19 Respiratory Rate 22 02/05/24 21:19 Blood Pressure 181/86 H 02/05/24 21:19 Pulse Oximetry 91 02/05/24 21:19 Oxygen Delivery Method Room Air 02/05/24 21:19 Const: Awake, ill-appearing, appears chronically unwell, frail Cardiac: regular rate, regular rhythm RESP: unlabored, mild tachypnea, no wheezing GI: Soft, left lower quadrant tenderness to deep palpation without rebound or guarding Skin: Warm, Dry, intact, poor skin turgor Neuro: AO x3, CN II-XII grossly intact, moves all extremities Course Orders Ordered: Acetaminophen (Acetaminophen 325 Mg Tablet) 650 mg PO Q6H PRN PRN Reason: Fever/Mild Pain (1-3) Hydrocodone Bitart/Acetaminophen (Hydrocodone/Acet 5/325 Tablet) 1 tab PO Q4H PRN PRN Reason: Pain, Moderate (4-6) Last Admin: 02/06/24 22:38 Dose: 1 tab Documented By: LALO Atorvastatin Calcium (Atorvastatin 20 Mg Tablet) 20 mg PO DAILY [facility] Last Admin: 02/06/24 09:00 Dose: 20 mg Documented By: HCW Bisacodyl (Bisacodyl 10 Mg Supp) 10 mg [place] DAILY PRN PRN Reason: Constipation Carvedilol (Carvedilol 12.5 Mg Tablet) 25 mg PO BID [facility] Last Admin: 02/06/24 21:26 Dose: 25 mg Documented By: Admin: 02/06/24 08:59 Dose: 25 mg Documented By: HCW Docusate Sodium (Docusate 100 Mg Capsule) 100 mg PO BID [facility] Last Admin: 02/06/24 21:27 Dose: 100 mg Documented By: Admin: 02/06/24 09:00 Dose: 100 mg Documented By: DIVINEW Finasteride (Finasteride 5 Mg Tablet) 5 mg PO DAILY [facility] Last Admin: 02/06/24 09:00 Dose: 5 mg Documented By: DIVINEW Gabapentin (Gabapentin 300 Mg Capsule) 300 mg PO DAILY [facility] Last Admin: 02/06/24 09:00 Dose: 300 mg Documented By: HCW Gabapentin (Gabapentin 300 Mg Capsule) 600 mg PO BEDTIME [facility] Last Admin: 02/06/24 21:27 Dose: 600 mg Documented By: LALO Dextrose (D10w) 100 mls @ 1,200 mls/hr IV PRN PRN PRN Reason: Hypoglycemia Ceftriaxone Sodium 1,000 mg/ (Sodium Chloride) 100 mls @ 200 mls/hr IV Q24H [facility] Last Admin: 02/06/24 22:40 Dose: 200 mls/hr Documented By: LALO Insulin Human Lispro (Insulin Lispro 100 Unit/Ml 3ml Vial) 0 unit SUBCUT ACHS [facility]; Protocol Last Admin: 02/06/24 21:22 Dose: 3 unit Documented By: LALO Co-signed By: PEDRO Admin: 02/06/24 17:32 Dose: 3 unit Documented By: HCW Co-signed By: LUCILLE Admin: 02/06/24 12:20 Dose: 7 unit Documented By: ADAM Co-signed By: HCW Admin: 02/06/24 08:56 Dose: 7 unit Documented By: HCW Co-signed By: LUCILLE Insulin Human NPH (Insulin Nph 100 Unit/Ml 10ml Vial) 15 unit SUBCUT BIDAC [facility] Last Admin: 02/06/24 17:33 Dose: 15 unit Documented By: HCW Co-signed By: LUCILLE Admin: 02/06/24 09:10 Dose: 15 unit Documented By: HCW Co-signed By: KASI Levetiracetam (Levetiracetam 250 Mg Tablet) 250 mg PO BID [facility] Last Admin: 02/06/24 21:27 Dose: 250 mg Documented By: Admin: 02/06/24 09:00 Dose: 250 mg Documented By: HCW Naloxone HCl (Naloxone 0.4 Mg/Ml Vial) 0.2 mg IV Q2MIN PRN PRN Reason: Opiate Reversal Non-Formulary Medication (Sacubitril-Valsartan [Entresto]) 1 tab PO BID [facility] Last Admin: 02/06/24 21:27 Dose: Not Given Documented By: Admin: 02/06/24 08:46 Dose: Not Given Documented By: HCW Non-Formulary Medication (Ivabradine) 5 mg PO BID [facility] Last Admin: 02/06/24 21:27 Dose: Not Given Documented By: Admin: 02/06/24 08:45 Dose: Not Given Documented By: HCW Ondansetron HCl (Ondansetron 4 Mg/2 Ml Inj) 4 mg IV Q8HR PRN PRN Reason: Nausea And Vomiting Ondansetron HCl (Ondansetron 4 Mg Odt) 4 mg PO Q8HR PRN PRN Reason: Nausea And Vomiting Pantoprazole Sodium (Pantoprazole Dr 40 Mg Tablet) 40 mg PO BIDAC [facility] Last Admin: 02/06/24 17:33 Dose: 40 mg Documented By: Admin: 02/06/24 06:06 Dose: 40 mg Documented By: SH Tamsulosin HCl (Tamsulosin 0.4 Mg Capsule) 0.8 mg PO DAILY [facility] Last Admin: 02/06/24 08:59 Dose: 0.8 mg Documented By: HCW Discontinued Medications Acetaminophen (Acetaminophen 325 Mg Tablet) 975 mg PO NOW ONE Stop: 02/05/24 21:27 Last Admin: 02/05/24 21:58 Dose: 975 mg Documented By: NASREEN Enoxaparin Sodium (Enoxaparin 40 Mg/0.4 Ml Syringe) 40 mg SUBCUT DAILY [facility] Last Admin: 02/06/24 08:58 Dose: 40 mg Documented By: HCW Gabapentin (Gabapentin 300 Mg Capsule) 300 mg PO NOW ONE Stop: 02/06/24 05:41 Last Admin: 02/06/24 06:07 Dose: 300 mg Documented By: LALO Sodium Chloride (Normal Saline 0.9%) 1,000 mls @ 1,000 mls/hr IV BOLUS ONE Stop: 02/05/24 22:23 Last Infusion: 02/05/24 23:11 Dose: Infused Documented By: Admin: 02/05/24 21:58 Dose: 1,000 mls/hr Documented By: NASREEN Sodium Chloride (Normal Saline 0.9%) 1,000 mls @ 1,000 mls/hr IV BOLUS ONE Stop: 02/05/24 23:55 Last Infusion: 02/06/24 00:26 Dose: Infused Documented By: Admin: 02/05/24 23:13 Dose: 1,000 mls/hr Documented By: NASREEN Ceftriaxone Sodium 2,000 mg/ (Sodium Chloride) 100 mls @ 200 mls/hr IV NOW ONE Stop: 02/05/24 22:57 Last Infusion: 02/05/24 23:43 Dose: Infused Documented By: Admin: 02/05/24 23:13 Dose: 200 mls/hr Documented By: NASREEN Insulin Human Regular (Insulin Regular 100 Unit/Ml 3 Ml Vial) 5 unit IV NOW ONE Stop: 02/06/24 01:19 Last Admin: 02/06/24 01:28 Dose: 5 unit Documented By: NASREEN Co-signed By: HNG Non-Formulary Medication (Carvedilol) 25 mg PO BID [facility] Non-Formulary Medication (Omeprazole) 40 mg PO BID [facility] Ondansetron HCl (Ondansetron 4 Mg/2 Ml Inj) 4 mg IV NOW PRN PRN Reason: Nausea And Vomiting Ondansetron HCl (Ondansetron 4 Mg Odt) 4 mg SL NOW PRN PRN Reason: Nausea And Vomiting Potassium Chloride (Potassium Chloride 20 Meq Tab) 40 meq PO NOW ONE Stop: 02/06/24 08:16 Last Admin: 02/06/24 08:58 Dose: 40 meq Documented By: HCW Vital Signs Vital signs: Vital Signs - 8 hr 02/05/24 21:19 02/05/24 21:23 02/05/24 21:27 Temperature 99 F 102.2 F H Pulse Rate 91 H 86 Respiratory Rate 22 37 H Blood Pressure 181/86 H Pulse Oximetry 91 94 Oxygen Delivery Method Room Air Oxygen Flow Rate 02/05/24 21:30 02/05/24 21:31 02/05/24 21:31 Temperature Pulse Rate 87 88 Respiratory Rate 31 H 39 H Blood Pressure 173/81 H Pulse Oximetry 95 94 Oxygen Delivery Method Room Air Oxygen Flow Rate 02/05/24 22:00 02/05/24 22:00 02/05/24 22:30 Temperature Pulse Rate 89 86 Respiratory Rate 37 H 35 H Blood Pressure 159/86 H Pulse Oximetry 94 96 Oxygen Delivery Method Room Air Oxygen Flow Rate 02/05/24 23:00 02/05/24 23:30 02/06/24 00:00 Temperature Pulse Rate 84 83 79 Respiratory Rate 32 H 33 H 30 H Blood Pressure Pulse Oximetry 93 94 94 Oxygen Delivery Method Nasal Cannula Oxygen Flow Rate 2 02/06/24 00:27 02/06/24 00:28 02/06/24 00:28 Temperature 98.2 F Pulse Rate 79 Respiratory Rate 23 Blood Pressure 138/65 Pulse Oximetry 94 Oxygen Delivery Method Room Air Oxygen Flow Rate 02/06/24 00:30 02/06/24 00:53 02/06/24 01:00 Temperature 98.2 F Pulse Rate 79 Respiratory Rate 17 Blood Pressure 132/66 Pulse Oximetry 94 Oxygen Delivery Method Oxygen Flow Rate 02/06/24 01:00 02/06/24 01:30 02/06/24 02:00 Temperature Pulse Rate 78 74 Respiratory Rate 22 30 H Blood Pressure 131/63 Pulse Oximetry 95 Oxygen Delivery Method Room Air Oxygen Flow Rate 02/06/24 02:00 02/06/24 03:00 Temperature Pulse Rate 76 74 Respiratory Rate 30 H 22 Blood Pressure 131/60 Pulse Oximetry 91 93 Oxygen Delivery Method Room Air Room Air Oxygen Flow Rate MDM - Weakness Lab Data 02/06/24 06:25 02/06/24 06:25 Labs: Lab Results 02/05/24 02/05/24 02/05/24 Range/Units 21:19 21:25 22:45 WBC 6.7 (4.5-11.0) X10^3/uL RBC 4.31 L (4.5-5.9) X10^6/uL Hgb 13.9 (13.5-17.5) g/dL Hct 39.1 L (41-53) % MCV 90.7 (80-100) fL MCH 32.1 (26-34) PG MCHC 35.4 (30-36) % RDW 13.9 (11.6-14.8) % Plt Count 124 L (150-400) X10^3/uL Neut % (Auto) 85.8 H (50-75) % Lymph % (Auto) 7.8 L (25-40) % [place] % (Auto) 5.9 (3-14) % Eos % (Auto) 0.3 L (2-4) % Baso % (Auto) 0.2 (0-2) % Neut # (Auto) 5800 (8207-1801) /uL Lymph # (Auto) 500 L (0600-8391) /uL [place] # (Auto) 400 (0-900) /uL Eos # (Auto) 0 (0-450) /uL Baso # (Auto) 0 (0-100) /uL PT 12.4 (9.4-12.5) SECONDS INR 1.1 (0.9-1.3) APTT 21 L (25.1-36.5) SECONDS ABG Sample Site ABG pH (7.35-7.45) ABG pCO2 (35-45) mmHg ABG pO2 (80-100) mmHg ABG HCO3 (23-27) mmol/L ABG Total CO2 (23-27) mmol/L ABG O2 Saturation (95-100) % ABG Base Excess (-2-3) mmol/L VBG pH 7.27 L (7.33-7.43) VBG pCO2 < 20.0 L (45-50) mmHg VBG pO2 133 H (35-45) mmHg VBG HCO3 3 L (24-28) mmol/L VBG Total CO2 < 5 L (24-29) mmol/L VBG O2 Saturation 99 H (70-75) % VBG Base Excess -24.0 L (0-4) mmol/L FiO2 21 Sodium 129 L (137-145) mmol/L Potassium 3.7 (3.4-5.1) mmol/L Chloride 99 (98-107) mmol/L Carbon Dioxide 18 L (22-32) mmol/L BUN 36 H (9-20) mg/dL Creatinine 1.01 (0.66-1.25) mg/dL Estimated GFR > 60 (>60) mL/min BUN/Creatinine Ratio 35.6 H (6-22) Glucose 341 H (80-110) mg/dL Lactate 1.9 (0.7-2.1) mmol/L Calcium 8.5 (8.4-10.2) mg/dL Total Bilirubin 1.9 H (0.2-1.3) mg/dL AST 52 (17-59) IU/L ALT 30 (<50) IU/L Alkaline Phosphatase 105 (38-126) U/L Total Protein 7.5 (6.3-8.2) g/dL Albumin 4.1 (3.5-5.0) g/dL Globulin 3.4 (1.7-4.1) g/dL Albumin/Globulin Ratio 1.2 (1.0-2.8) Lipase 178 (23-300) U/L Procalcitonin 2.66 H (<0.5) ng/mL Urine RBC (0-5/HPF) Urine WBC (0-5/HPF) Ur Squamous Epith Cells (0-5/HPF) Urine Bacteria (None) Ur Culture Indicated? Vol Urine Centrifuged A.calcoaceticus-baumannii cmplx PCR Not detected (Not Detect) Chlamy pneumoniae PCR Not detected (Not Detect) Adenovirus (PCR) Not detected (Not Detect) Bacteroides fragilis Not detected (Not Detect) B.parapertussis DNA PCR Not detected (Not Detecte) Kaylan albicans (PCR) Not detected (Not Detect) Kaylan auris (PCR) Not detected (Not Detect) C. glabrata (PCR) Not detected (Not Detect) C. krusei (PCR) Not detected (Not Detect) C. parapsilosis (PCR) Not detected (Not Detect) C. tropicalis (PCR) Not detected (Not Detect) Coronavirus OC43 (PCR) Not detected (Not Detect) Coronavirus HKU1 (PCR) Not detected (Not Detect) Coronavirus 229E (PCR) Not detected (Not Detect) SARS-CoV-2 (PCR) Not detected (Not Detecte) Coronavirus NL63 (PCR) Not detected (Not Detect) C. neoform/gattii (PCR) Not detected (Not Detect) Enterobacterales (PCR) Detected (Not Detect) E. cloacae complex PCR Not detected (Not Detect) Enterococc faecalis PCR Not detected (Not Detect) Enterococc faecium PCR Not detected (Not Detect) E. coli (PCR) Not detected (Not Detect) H. influenzae (PCR) Not detected (Not Detect) Human Metapneumovir PCR Not detected (Not Detect) Influenza Type A (PCR) Not detected (Not Detect) Influenza Type B (PCR) Not detected (Not Detect) Klebsiella aerogenes (PCR) Not detected (Not Detect) Klebsiella oxytoca PCR Not detected (Not Detect) Klebsiella pneumoniae Detected (Not Detect) List. monocytogenes PCR Not detected (Not Detect) M. pneumoniae (PCR) Not detected (Not Detect) N. meningitidis (PCR) Not detected (Not Detect) Parainfluenza 1 (PCR) Not detected (Not Detect) Parainfluenza 2 (PCR) Not detected (Not Detect) Parainfluenza 3 (PCR) Not detected (Not Detect) Parainfluenza 4 (PCR) Not detected (Not Detect) Proteus species (PCR) Not detected (Not Detect) RSV (PCR) Not detected (Not Detect) Entero/Rhino (PCR) Not detected (Not Detect) Salmonella spp. (PCR) Not detected (Not Detect) Serratia marcescens PCR Not detected (Not Detect) Staphylococcus sp PCR Not detected (Not Detect) Staph aureus (PCR) Not detected (Not Detect) mecA/C & MREJ Resist Gene Not applicable (Not Detect) mecA/C-Methicil Resis Gene Not applicable (Not Detect) mcr-1 Colistin Res Gene PCR Not detected (Not Detect) Staph epidermidis (PCR) Not detected (Not Detect) Staph lugdunensis PCR Not detected (Not Detect) S. maltophilia (PCR) Not detected (Not Detect) Streptococcus sp PCR Not detected (Not Detect) Group A Strep (PCR) Not detected (Not Detect) Strep agalactiae (PCR) Not detected (Not Detect) Strep pneumoniae (PCR) Not detected (Not Detect) P. aeruginosa (PCR) Not detected (Not Detect) Adriel/B-Vanco Res Genes Not applicable (Not Detect) blaIMP Car res Gene PCR Not detected (Not Detect) KPC-Carbap Res Gene PCR Not detected (Not Detect) blaNDM Car Res Gene PCR Not detected (Not Detect) OXA-48 Carbapenem Resis Gene (PCR) Not detected (Not Detect) blaVIM Car Res Gene PCR Not detected (Not Detect) CTX-M Gene Resistance (PCR) Not detected (Not Detect) 02/05/24 02/06/24 02/06/24 Range/Units 22:51 00:25 01:29 WBC (4.5-11.0) X10^3/uL RBC (4.5-5.9) X10^6/uL Hgb (13.5-17.5) g/dL Hct (41-53) % MCV (80-100) fL MCH (26-34) PG MCHC (30-36) % RDW (11.6-14.8) % Plt Count (150-400) X10^3/uL Neut % (Auto) (50-75) % Lymph % (Auto) (25-40) % [place] % (Auto) (3-14) % Eos % (Auto) (2-4) % Baso % (Auto) (0-2) % Neut # (Auto) (7283-2501) /uL Lymph # (Auto) (8943-0494) /uL [place] # (Auto) (0-900) /uL Eos # (Auto) (0-450) /uL Baso # (Auto) (0-100) /uL PT (9.4-12.5) SECONDS INR (0.9-1.3) APTT (25.1-36.5) SECONDS ABG Sample Site Left radial ABG pH 7.41 (7.35-7.45) ABG pCO2 27.6 L (35-45) mmHg ABG pO2 65 L (80-100) mmHg ABG HCO3 17 L (23-27) mmol/L ABG Total CO2 18 L (23-27) mmol/L ABG O2 Saturation 93 L (95-100) % ABG Base Excess -7.0 L (-2-3) mmol/L VBG pH (7.33-7.43) VBG pCO2 (45-50) mmHg VBG pO2 (35-45) mmHg VBG HCO3 (24-28) mmol/L VBG Total CO2 (24-29) mmol/L VBG O2 Saturation (70-75) % VBG Base Excess (0-4) mmol/L FiO2 21 Sodium 131 L (137-145) mmol/L Potassium 3.4 (3.4-5.1) mmol/L Chloride 104 (98-107) mmol/L Carbon Dioxide 17 L (22-32) mmol/L BUN 28 H (9-20) mg/dL Creatinine 0.84 (0.66-1.25) mg/dL Estimated GFR > 60 (>60) mL/min BUN/Creatinine Ratio 33.3 H (6-22) Glucose 289 H (80-110) mg/dL Lactate (0.7-2.1) mmol/L Calcium 7.5 L (8.4-10.2) mg/dL Total Bilirubin (0.2-1.3) mg/dL AST (17-59) IU/L ALT (<50) IU/L Alkaline Phosphatase (38-126) U/L Total Protein (6.3-8.2) g/dL Albumin (3.5-5.0) g/dL Globulin (1.7-4.1) g/dL Albumin/Globulin Ratio (1.0-2.8) Lipase (23-300) U/L Procalcitonin (<0.5) ng/mL Urine RBC 0-1/hpf (0-5/HPF) Urine WBC 10-30/hpf H (0-5/HPF) Ur Squamous Epith Cells 0-1 /hpf (0-5/HPF) Urine Bacteria Many (>30) H (None) Ur Culture Indicated? Cult not indicated Vol Urine Centrifuged 10ml (spun) A.calcoaceticus-baumannii cmplx PCR (Not Detect) Chlamy pneumoniae PCR (Not Detect) Adenovirus (PCR) (Not Detect) Bacteroides fragilis (Not Detect) B.parapertussis DNA PCR (Not Detecte) Kaylan albicans (PCR) (Not Detect) Kaylan auris (PCR) (Not Detect) C. glabrata (PCR) (Not Detect) C. krusei (PCR) (Not Detect) C. parapsilosis (PCR) (Not Detect) C. tropicalis (PCR) (Not Detect) Coronavirus OC43 (PCR) (Not Detect) Coronavirus HKU1 (PCR) (Not Detect) Coronavirus 229E (PCR) (Not Detect) SARS-CoV-2 (PCR) (Not Detecte) Coronavirus NL63 (PCR) (Not Detect) C. neoform/gattii (PCR) (Not Detect) Enterobacterales (PCR) (Not Detect) E. cloacae complex PCR (Not Detect) Enterococc faecalis PCR (Not Detect) Enterococc faecium PCR (Not Detect) E. coli (PCR) (Not Detect) H. influenzae (PCR) (Not Detect) Human Metapneumovir PCR (Not Detect) Influenza Type A (PCR) (Not Detect) Influenza Type B (PCR) (Not Detect) Klebsiella aerogenes (PCR) (Not Detect) Klebsiella oxytoca PCR (Not Detect) Klebsiella pneumoniae (Not Detect) List. monocytogenes PCR (Not Detect) M. pneumoniae (PCR) (Not Detect) N. meningitidis (PCR) (Not Detect) Parainfluenza 1 (PCR) (Not Detect) Parainfluenza 2 (PCR) (Not Detect) Parainfluenza 3 (PCR) (Not Detect) Parainfluenza 4 (PCR) (Not Detect) Proteus species (PCR) (Not Detect) RSV (PCR) (Not Detect) Entero/Rhino (PCR) (Not Detect) Salmonella spp. (PCR) (Not Detect) Serratia marcescens PCR (Not Detect) Staphylococcus sp PCR (Not Detect) Staph aureus (PCR) (Not Detect) mecA/C & MREJ Resist Gene (Not Detect) mecA/C-Methicil Resis Gene (Not Detect) mcr-1 Colistin Res Gene PCR (Not Detect) Staph epidermidis (PCR) (Not Detect) Staph lugdunensis PCR (Not Detect) S. maltophilia (PCR) (Not Detect) Streptococcus sp PCR (Not Detect) Group A Strep (PCR) (Not Detect) Strep agalactiae (PCR) (Not Detect) Strep pneumoniae (PCR) (Not Detect) P. aeruginosa (PCR) (Not Detect) Adriel/B-Vanco Res Genes (Not Detect) blaIMP Car res Gene PCR (Not Detect) KPC-Carbap Res Gene PCR (Not Detect) blaNDM Car Res Gene PCR (Not Detect) OXA-48 Carbapenem Resis Gene (PCR) (Not Detect) blaVIM Car Res Gene PCR (Not Detect) CTX-M Gene Resistance (PCR) (Not Detect) Point of Care Testing Glucose POC 270 Urine Dip Bedside Urine Glucose 1000 mg/dl Bedside Urine Bilirubin - Negative Bedside Urine Ketone +++ 80 Urine Specific [place] 1.010 Bedside Urine Occult Blood +++ Bedside Urine pH 6.0 Bedside Urine Protein ++ 100 Bedside Urine Urobilinogen +/- 1mg Bedside Urine Nitrite - Negative Bedside Urine Leukocytes ++ [address] scan - abdomen/pelvis: Radiologist Impression: PROCEDURE: CT ABDOMEN PELVIS W CON INDICATIONS: LLQ ABD PAIN, DIARRHEA, FEVER TECHNIQUE: After the administration of intravenous contrast, axial sections acquired from the lung bases to the pubic symphysis. Coronal and sagittal reformats were performed. For radiation dose reduction, the following was used: automated exposure control, adjustment of mA and/or kV according to patient size. COMPARISON: [facility], CT, CT ABDOMEN PELVIS W CON, 02/04/2023, 13:17. FINDINGS: Image quality: Diagnostic. Lower Chest: Cardiomegaly. ABDOMEN: Liver: Hepatomegaly, as was noted on the study from earlier on the same date. Gallbladder: No radiopaque gallstones or wall thickening. Biliary ducts: No biliary dilation. Pancreas: No ductal dilation. Spleen: Mild splenomegaly. Spleen measures 13.7 cm. Adrenal Glands: No adrenal nodules. Kidneys and Ureters: Development of mild left hydronephrosis since the earlier study from the same date with a suggestion of mild increased inflammatory change in the adjacent fat. The left ureter is now mildly dilated down to the level of the base of the bladder. It appears to enter a bladder diverticulum. The wall of the bladder may be slightly thicker than previously. There is some bladder trabeculations. Stomach and Bowel: Normal colonic caliber, without significant wall thickening. Peritoneum: No abnormal intraperitoneal fluid. No free air. Ventral Wall: No significant ventral hernia. Abdominal Nodes: No retroperitoneal or mesenteric adenopathy by size criteria. Vessels: Aorta and inferior vena cava are normal in size. PELVIS: Pelvic Organs: Prostatomegaly Bladder: Question slight increase in bladder wall thickening since the study from earlier today. There bladder wall trabeculations. The left ureter appears to enter a diverticulum of the bladder. Pelvic Nodes: No enlarged lymph nodes. Miscellaneous: No inguinal hernias are seen. Bones: No aggressive osseous abnormality. Remote lumbar surgery. Diffuse lumbar degenerative change. IMPRESSION: 1. Development of slight left hydronephrosis and inflammatory change adjacent to the left kidney with development of left ureteral dilatation. 2. The left ureter appears to enter into a bladder diverticulum. 3. Prostatomegaly. 4. Diffuse bladder wall thickening, potentially increased compared to earlier today. Question cystitis. There are bladder wall trabeculation suggesting chronic bladder outlet obstruction. 5. Hepatosplenomegaly. Dictated by: Oliver Valdivia M.D. on 02/05/2024 at 22:35 Approved by: Oliver Valdivia M.D. on 02/05/2024 at 22:43 [facility] Narrative Medical decision making narrative: Chronically unwell and acutely ill-appearing patient presenting for weakness and diarrhea, found to be quite febrile on arrival. Sepsis bundle ordered, however we will be cautious with fluids given patient's history of congestive heart failure. Laboratory work significant for WBC count 6.7, hemoglobin 13.9, platelet count 124. Patient seems to have intermittent thrombocytopenia, however this is within his previous limits. Chemistry panel significant for sodium 129, CO2 18, creatinine 1.01, glucose 341, lactic acid 1.9, protocol 2.66. Urinalysis positive for nitrites, WBCs, and many bacteria. CT shows perinephric stranding and significant bladder wall thickening concerning for pyelonephritis. After receiving IV fluids patient's repeat CO2 is 17, however ABG showed no acidosis and there was no elevation of anion gap. I do not believe that patient was in DKA at this time. Patient received 2 g of IV Rocephin, his fever was improved with Tylenol. Patient to be admitted for further management of his condition. Discharge Plan Departure Patient Disposition: Admitted As Inpatient Clinical Impression: Acute UTI, Hyperglycemia, Generalized weakness Sepsis Qualifiers: Sepsis type: sepsis due to unspecified organism Sepsis acute organ dysfunction status: without acute organ dysfunction Qualified Code(s): A41.9 - Sepsis, unspecified organism Admit Date/Time: 02/06/24 03:58 Admit Provider: Stephanie Eden
[2024-02-05 21:45] LABS: Add Manual Diff / Slide Review NO; Basophils Absolute Auto 0 /uL (0-100); Basophils Percent Auto 0.2 % (0-2); Eosinophils Absolute Auto 0 /uL (0-450); Eosinophils Percent Auto 0.3 % (2-4); Hematocrit 39.1 % (41-53); Hemoglobin 13.9 g/dL (13.5-17.5); Lactate (Lactic Acid) 1.9 mmol/L (0.7-2.1); Lymphocytes Absolute Auto 500 /uL (1100-4500); Lymphocytes Percent Auto 7.8 % (25-40); Mean Corpuscular HGB Conc 35.4 % (30-36); Mean Corpuscular Hemoglobin 32.1 PG (26-34); Mean Corpuscular Volume 90.7 fL (80-100); Monocytes Absolute Auto 400 /uL (0-900); Monocytes Percent Auto 5.9 % (3-14); Neutrophils Absolute Auto 5800 /uL (1500-7000); Neutrophils Percent Auto 85.8 % (50-75); Platelet Count 124 X10^3/uL (150-400); Red Blood Cell Count 4.31 X10^6/uL (4.5-5.9); Red Cell Distribution Width 13.9 % (11.6-14.8); White Blood Cell Count 6.7 X10^3/uL (4.5-11.0)
[2024-02-05 21:46] LABS: Alanine Aminotransferase 30 IU/L (<50); Albumin 4.1 g/dL (3.5-5.0); Albumin Globulin Ratio 1.2 (1.0-2.8); Alkaline Phosphatase 105 U/L (38-126); Aspartate Aminotransferase 52 IU/L (17-59); BUN Creatinine Ratio 35.6 (6-22); Bilirubin Total 1.9 mg/dL (0.2-1.3); Blood Urea Nitrogen 36 mg/dL (9-20); Calcium 8.5 mg/dL (8.4-10.2); Carbon Dioxide 18 mmol/L (22-32); Chloride 99 mmol/L (98-107); Estimated Glomerular Filt Rate > 60 mL/min (>60); Globulin 3.4 g/dL (1.7-4.1); Glucose 341 mg/dL (80-110); HEMOLYSIS 28 (0-50); Lipase 178 U/L (23-300); Potassium 3.7 mmol/L (3.4-5.1); Sodium 129 mmol/L (137-145); Total Protein 7.5 g/dL (6.3-8.2)
--- NOTE | 2024-02-05 21:55 | DI.CT.S_ITS ---
PROCEDURE: CT ABDOMEN PELVIS W CON INDICATIONS: LLQ ABD PAIN, DIARRHEA, FEVER TECHNIQUE: After the administration of intravenous contrast, axial sections acquired from the lung bases to the pubic symphysis. Coronal and sagittal reformats were performed. For radiation dose reduction, the following was used: automated exposure control, adjustment of mA and/or kV according to patient size. COMPARISON: [facility], CT, CT ABDOMEN PELVIS W CON, 02/04/2023, 13:17. FINDINGS: Image quality: Diagnostic. Lower Chest: Cardiomegaly. ABDOMEN: Liver: Hepatomegaly, as was noted on the study from earlier on the same date. Gallbladder: No radiopaque gallstones or wall thickening. Biliary ducts: No biliary dilation. Pancreas: No ductal dilation. Spleen: Mild splenomegaly. Spleen measures 13.7 cm. Adrenal Glands: No adrenal nodules. Kidneys and Ureters: Development of mild left hydronephrosis since the earlier study from the same date with a suggestion of mild increased inflammatory change in the adjacent fat. The left ureter is now mildly dilated down to the level of the base of the bladder. It appears to enter a bladder diverticulum. The wall of the bladder may be slightly thicker than previously. There is some bladder trabeculations. Stomach and Bowel: Normal colonic caliber, without significant wall thickening. Peritoneum: No abnormal intraperitoneal fluid. No free air. Ventral Wall: No significant ventral hernia. Abdominal Nodes: No retroperitoneal or mesenteric adenopathy by size criteria. Vessels: Aorta and inferior vena cava are normal in size. PELVIS: Pelvic Organs: Prostatomegaly Bladder: Question slight increase in bladder wall thickening since the study from earlier today. There bladder wall trabeculations. The left ureter appears to enter a diverticulum of the bladder. Pelvic Nodes: No enlarged lymph nodes. Miscellaneous: No inguinal hernias are seen. Bones: No aggressive osseous abnormality. Remote lumbar surgery. Diffuse lumbar degenerative change. IMPRESSION: 1. Development of slight left hydronephrosis and inflammatory change adjacent to the left kidney with development of left ureteral dilatation. 2. The left ureter appears to enter into a bladder diverticulum. 3. Prostatomegaly. 4. Diffuse bladder wall thickening, potentially increased compared to earlier today. Question cystitis. There are bladder wall trabeculation suggesting chronic bladder outlet obstruction. 5. Hepatosplenomegaly. Dictated by: Oliver Valdivia M.D. on 02/05/2024 at 22:35 Approved by: Oliver Valdivia M.D. on 02/05/2024 at 22:43
[2024-02-05] MEDS: SODIUM CHLORIDE 0.9% 1,000 ML 1000 ML IV ×2 (21:58→23:13)
[2024-02-05] MEDS: ACETAMINOPHEN 325 MG TABLET 975 MG PO (21:58)
[2024-02-05 22:02] LABS: Procalcitonin 2.66 ng/mL (<0.5)
[2024-02-05 22:51] LABS: Adenovirus Not Detected (Not Detect); B. parapertussis Not Detected (Not Detecte); Bordetella pertussis Not Detected (Not Detect); Chlamydophila pneumoniae Not Detected (Not Detect); Coronavirus 229E Not Detected (Not Detect); Coronavirus HKU1 Not Detected (Not Detect); Coronavirus NL 63 Not Detected (Not Detect); Coronavirus OC43 Not Detected (Not Detect); Human Metapneumovirus Not Detected (Not Detect); Human Rhinovirus/Enterovirus Not Detected (Not Detect); Influenza A Not Detected (Not Detect); Influenza B Not Detected (Not Detect); Mycoplasma pneumoniae Not Detected (Not Detect); Parainfluenza Virus 1 Not Detected (Not Detect); Parainfluenza Virus 2 Not Detected (Not Detect); Parainfluenza Virus 3 Not Detected (Not Detect); Parainfluenza Virus 4 Not Detected (Not Detect); Respiratory Syncytial Virus Not Detected (Not Detect); SARS- CoV-2 Not Detected (Not Detecte)
[2024-02-05 22:54] LABS: pH VBG 7.27 (7.33-7.43)
[2024-02-05 22:59] LABS: Fractionated Inspired Oxygen 21; HCO3 VBG 3 mmol/L (24-28); Oxygen Saturation VBG 99 % (70-75); Total CO2 VBG < 5 mmol/L (24-29)
[2024-02-05 23:01] LABS: PCO2 VBG < 20.0 mmHg (45-50); PO2 VBG 133 mmHg (35-45)
[2024-02-05] MEDS: cefTRIAXone 2,000 MG in SODIUM CHLORIDE 0.9% 100 ML 200 MG IV (23:13)
[2024-02-05 23:16] LABS: Bacteria Urine Many (>30); Culture Indicated Urine Cult Not Indicated; RBC Urine 0-1/HPF (0-5/HPF); Squamous Epithelial Cell Urine 0-1 /HPF (0-5/HPF); Urine Volume 10mL (spun); WBC Urine 10-30/HPF (0-5/HPF)
[2024-02-06] VITALS (16 sets, daily range): BP systolic 121–145; BP diastolic 59–71; PULSE 74–91; RESP 16–30; TEMP 36.6–37; O2SAT 91–97; BMI 25.9
--- NOTE | 2024-02-06 00:28 | PC.NURSE ---
Pt is much more responsive at this time. Requested to go to bathroom to have bowel movement. Pt was able to stand without assistance and is much improved from arrival. Pt ambulated to wheelchair and was taken to bathroom. Pt was able to use restroom well without assistance. Pt is now back in bed. Afebrile. tolerating PO intake well with water. Denies any complaints at this time. neighbor at bedside and denied any needs at this time as well. O2 nasal cannula removed as O2 sat was 94% on room air. Pt tolerating room air well.
[2024-02-06 01:09] LABS: BUN Creatinine Ratio 33.3 (6-22); Blood Urea Nitrogen 28 mg/dL (9-20); Calcium 7.5 mg/dL (8.4-10.2); Carbon Dioxide 17 mmol/L (22-32); Chloride 104 mmol/L (98-107); Estimated Glomerular Filt Rate > 60 mL/min (>60); Glucose 289 mg/dL (80-110); HEMOLYSIS < 15 (0-50); Potassium 3.4 mmol/L (3.4-5.1); Sodium 131 mmol/L (137-145)
[2024-02-06] MEDS: INSULIN REGULAR 100 UNIT/ML 3 ML VIAL IV (01:28)
[2024-02-06 01:44] LABS: Allen Test for ABG Passed? Yes, Passed; Blood Gas Collection Site Left Radial; Fractionated Inspired Oxygen 21; HCO3 ABG 17 mmol/L (23-27); Oxygen Saturation ABG 93 % (95-100); PCO2 ABG 27.6 mmHg (35-45); PO2 ABG 65 mmHg (80-100); TCO2 ABG 18 mmol/L (23-27); pH ABG 7.41 (7.35-7.45)
--- NOTE | 2024-02-06 04:05 | PC.NURSE ---
Pt denies any new symptoms and says he is feeling slightly better.
--- NOTE | 2024-02-06 04:29 | P.HP_ITS ---
History of Present Illness History of Present Illness Date Patient Seen: 02/06/24 Chief complaint: weakness Narrative: States that he has not felt well for 3-4 days, generalized weakness barely able to get out of bed. Now with fever, chills. Went to his neighbor given unwell feeling and they brought him in for further work up. States he had an UTI at last PCP evaluation that improved after antibx treatment, now again with urinary frequency and decreased volume output. At worse it can be 3 times an hour, at least once an hour for most of the day. Denies gross hematuria, dysuria. Last evaluation by Urologist was 10/2023 when he was able to have urinary catheter discontinued post back surgery complicated by urinary retention. Evaluated by PCP 3/4 for chronic conditions, urinary frequency and urgency with concern for urinary retention. ED evaluated and found to have pyuria, elevated procal with CT revealing left hydronephrosis, pernephric fat stranding. Concern for UTI, started on Ceftriaxone. Called PCP team for admission, unable to reach and consulted my team for admission. ED Medications Acetaminophen (Acetaminophen 325 Mg Tablet) 975 mg PO NOW ONE Stop: 02/05/24 21:27 Last Admin: 02/05/24 21:58 Dose: 975 mg Documented By: NASREEN Sodium Chloride (Normal Saline 0.9%) 1,000 mls @ 1,000 mls/hr IV BOLUS ONE Stop: 02/05/24 22:23 Last Infusion: 02/05/24 23:11 Dose: Infused Documented By: Admin: 02/05/24 21:58 Dose: 1,000 mls/hr Documented By: NASREEN Sodium Chloride (Normal Saline 0.9%) 1,000 mls @ 1,000 mls/hr IV BOLUS ONE Stop: 02/05/24 23:55 Last Infusion: 02/06/24 00:26 Dose: Infused Documented By: Admin: 02/05/24 23:13 Dose: 1,000 mls/hr Documented By: NASREEN Ceftriaxone Sodium 2,000 mg/ (Sodium Chloride) 100 mls @ 200 mls/hr IV NOW ONE Stop: 02/05/24 22:57 Last Infusion: 02/05/24 23:43 Dose: Infused Documented By: Admin: 02/05/24 23:13 Dose: 200 mls/hr Documented By: NASREEN Insulin Human Regular (Insulin Regular 100 Unit/Ml 3 Ml Vial) 5 unit IV NOW ONE Stop: 02/06/24 01:19 Last Admin: 02/06/24 01:28 Dose: 5 unit Documented By: NASREEN Co-signed By: TD Ondansetron HCl (Ondansetron 4 Mg/2 Ml Inj) 4 mg IV NOW PRN PRN Reason: Nausea And Vomiting Ondansetron HCl (Ondansetron 4 Mg Odt) 4 mg SL NOW PRN PRN Reason: Nausea And Vomiting PFSH Medical History Incomplete emptying of bladder Bladder outlet obstruction Benign prostatic hyperplasia Lower urinary tract symptoms History of pacemaker History of depression Hx of congestive heart failure Hx of skin cancer, basal cell Acute GI bleeding Cerebrovascular accident Automatic implantable cardiac defibrillator in situ (~07/2019) Nonischemic cardiomyopathy (09/09/16) half-way current use of insulin (08/20/16) Type 2 diabetes mellitus with hyperglycemia, with long-term current use of insulin Diabetic peripheral neuropathy (07/25/15) Degeneration of intervertebral disc of cervical region Essential hypertension Mixed hyperlipidemia Type 2 diabetes mellitus without complication Surgical History History of back surgery S/P lumbar fusion Social History marital status: number of children: 0 household members: none lives independently: Yes caregiver/support person: Yes housing: house pets and animals: Yes education level: other occupational status: previously employed and other current occupational exposures/hazards: No 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: [employer] travel history: recent leisure activities: music, reading and other Smoking Status: Never smoker quit status: quit date established second hand exposure: No alcohol intake: current substance use type: does not use caffeine: Yes Type(s) of exercise: walking frequency: 3-4 times per week Meds Home Medications and Allergies Home Medications Medication Instructions Recorded Confirmed Type nortriptyline 50 mg capsule See Rx Instructions PO HS #180 caps 04/30/21 02/06/24 Rx Glucose: Test Strips #500 ea 08/27/21 01/05/24 Rx blood-glucose meter (Blood Glucose #1 ea 08/27/21 01/05/24 Rx Monitoring kit) acetaminophen 325 mg tablet 650 mg (2 x 325 mg) PO Q6HR PRN 05/18/22 02/06/24 Rx Fever/Mild Pain (1-3) #60 tabs carvedilol 25 mg tablet 25 mg PO BID #180 tabs 10/16/22 02/06/24 Rx ivabradine 5 mg tablet 5 mg PO BID #180 tabs 02/28/23 02/06/24 Rx levetiracetam 500 mg tablet 250 mg PO BID 03/14/23 02/06/24 History insulin NPH-regular 70-30 U-100 25 unit (0.25 mL) SUBCUT BID #200 04/04/23 02/06/24 Rx insulin 100 unit/mL subcutaneous mL pen (Humulin 70/30 U-100 KwikPen) pen needle, diabetic 31 gauge x #100 ea 04/04/23 01/05/24 Rx 5/16 (1st Tier Unifine Pentips) atorvastatin 20 mg tablet 20 mg PO DAILY #90 tabs 06/30/23 02/06/24 Rx omeprazole 40 mg capsule,delayed 40 mg PO BID #60 caps 06/30/23 02/06/24 Rx release tamsulosin 0.4 mg capsule 0.8 mg (2 x 0.4 mg) PO DAILY #180 07/23/23 02/06/24 Rx caps finasteride 5 mg tablet 5 mg PO DAILY #90 tabs 08/20/23 02/06/24 Rx magnesium oxide 400 mg (241.3 mg 400 mg PO BID #180 tabs 11/10/23 02/06/24 Rx magnesium) tablet potassium chloride 10 mEq 10 meq PO DAILY #90 tabs 11/28/23 02/06/24 Rx tablet,extended release gabapentin 300 mg capsule See Rx Instructions PO BID #270 01/05/24 02/06/24 Rx caps oxycodone 5 mg tablet 5 mg PO Q4-6H PRN pain, moderate 01/05/24 02/06/24 Rx #60 tabs sacubitril 49 mg-valsartan 51 mg 1 tab PO BID 01/05/24 02/06/24 History tablet (Entresto) metformin 500 mg tablet,extended 1,000 mg (2 x 500 mg) PO BID #360 01/19/24 02/06/24 Rx release 24 hr tabs Allergies Allergy/AdvReac Type Severity Reaction Status Date / Time No Known Drug Allergies Allergy Verified 01/05/24 13:57 Review of Systems Review of Systems ROS: Yes All systems reviewed with the patient and are negative except as otherwise documented Exam Vital Signs (past 8 hours): - 02/05/24 21:19 02/05/24 21:23 02/05/24 21:27 Temperature 99 F 102.2 F H Pulse Rate 91 H 86 Respiratory Rate 22 37 H Blood Pressure 181/86 H Pulse Oximetry 91 94 Oxygen Delivery Method Room Air Oxygen Flow Rate 02/05/24 21:30 02/05/24 21:31 02/05/24 21:31 Temperature Pulse Rate 87 88 Respiratory Rate 31 H 39 H Blood Pressure 173/81 H Pulse Oximetry 95 94 Oxygen Delivery Method Room Air Oxygen Flow Rate 02/05/24 22:00 02/05/24 22:00 02/05/24 22:30 Temperature Pulse Rate 89 86 Respiratory Rate 37 H 35 H Blood Pressure 159/86 H Pulse Oximetry 94 96 Oxygen Delivery Method Room Air Oxygen Flow Rate 02/05/24 23:00 02/05/24 23:30 02/06/24 00:00 Temperature Pulse Rate 84 83 79 Respiratory Rate 32 H 33 H 30 H Blood Pressure Pulse Oximetry 93 94 94 Oxygen Delivery Method Nasal Cannula Oxygen Flow Rate 2 02/06/24 00:27 02/06/24 00:28 02/06/24 00:28 Temperature 98.2 F Pulse Rate 79 Respiratory Rate 23 Blood Pressure 138/65 Pulse Oximetry 94 Oxygen Delivery Method Room Air Oxygen Flow Rate 02/06/24 00:30 02/06/24 00:53 02/06/24 01:00 Temperature 98.2 F Pulse Rate 79 Respiratory Rate 17 Blood Pressure 132/66 Pulse Oximetry 94 Oxygen Delivery Method Oxygen Flow Rate 02/06/24 01:00 02/06/24 01:30 02/06/24 02:00 Temperature Pulse Rate 78 74 Respiratory Rate 22 30 H Blood Pressure 131/63 Pulse Oximetry 95 Oxygen Delivery Method Room Air Oxygen Flow Rate 02/06/24 02:00 02/06/24 03:00 02/06/24 04:00 Temperature Pulse Rate 76 74 76 Respiratory Rate 30 H 22 24 Blood Pressure 131/60 121/59 L Pulse Oximetry 91 93 93 Oxygen Delivery Method Room Air Room Air Room Air Oxygen Flow Rate 02/06/24 04:16 Temperature 98.2 F Pulse Rate Respiratory Rate Blood Pressure Pulse Oximetry Oxygen Delivery Method Oxygen Flow Rate Oxygen Delivery Method Room Air Oxygen Flow Rate 2 Narrative Exam Narrative: Telemedicine with audio and visual, stethoscope for evaluation Const General: cooperative and No acute distress [facility] Head: normal to inspection Eyes General: appearance normal, both eyes and all related structures Resp Effort & Inspection: normal respiratory effort Auscultation: clear to auscultation bilaterally Cardio Rate: regular rate Rhythm: regular rhythm Heart Sounds: no murmurs GI Palpation: tender Skin General: no rashes or lesions noted Neuro General: patient alert and patient oriented x3 Extrem General: normal to inspection Psych Appearance: grossly normal Objective Imaging CT scan - abdomen: My impression: Left hydronephrosis with perinephric fat stranding, dilated ureter Radiologist's impression: PROCEDURE: CT ABDOMEN PELVIS W CON INDICATIONS: LLQ ABD PAIN, DIARRHEA, FEVER TECHNIQUE: After the administration of intravenous contrast, axial sections acquired from the lung bases to the pubic symphysis. Coronal and sagittal reformats were performed. For radiation dose reduction, the following was used: automated exposure control, adjustment of mA and/or kV according to patient size. COMPARISON: [facility], CT, CT ABDOMEN PELVIS W CON, 02/04/2023, 13:17. FINDINGS: Image quality: Diagnostic. Lower Chest: Cardiomegaly. ABDOMEN: Liver: Hepatomegaly, as was noted on the study from earlier on the same date. Gallbladder: No radiopaque gallstones or wall thickening. Biliary ducts: No biliary dilation. Pancreas: No ductal dilation. Spleen: Mild splenomegaly. Spleen measures 13.7 cm. Adrenal Glands: No adrenal nodules. Kidneys and Ureters: Development of mild left hydronephrosis since the earlier study from the same date with a suggestion of mild increased inflammatory change in the adjacent fat. The left ureter is now mildly dilated down to the level of the base of the bladder. It appears to enter a bladder diverticulum. The wall of the bladder may be slightly thicker than previously. There is some bladder trabeculations. Stomach and Bowel: Normal colonic caliber, without significant wall thickening. Peritoneum: No abnormal intraperitoneal fluid. No free air. Ventral Wall: No significant ventral hernia. Abdominal Nodes: No retroperitoneal or mesenteric adenopathy by size criteria. Vessels: Aorta and inferior vena cava are normal in size. PELVIS: Pelvic Organs: Prostatomegaly Bladder: Question slight increase in bladder wall thickening since the study from earlier today. There bladder wall trabeculations. The left ureter appears to enter a diverticulum of the bladder. Pelvic Nodes: No enlarged lymph nodes. Miscellaneous: No inguinal hernias are seen. Bones: No aggressive osseous abnormality. Remote lumbar surgery. Diffuse lumbar degenerative change. IMPRESSION: 1. Development of slight left hydronephrosis and inflammatory change adjacent to the left kidney with development of left ureteral dilatation. 2. The left ureter appears to enter into a bladder diverticulum. 3. Prostatomegaly. 4. Diffuse bladder wall thickening, potentially increased compared to earlier today. Question cystitis. There are bladder wall trabeculation suggesting chronic bladder outlet obstruction. 5. Hepatosplenomegaly. Dictated by: Oliver Valdivia M.D. on 02/05/2024 at 22:35 Approved by: Oliver Valdivia M.D. on 02/05/2024 at 22:43 Chest x-ray: My impression: NAP Radiologist's impression: IMPRESSION: No acute cardiopulmonary abnormality is seen. Dictated by: Oliver Valdivia M.D. on 02/05/2024 at 22:21 Approved by: Oliver Valdivia M.D. on 02/05/2024 at 22:22 Labs 02/05/24 21:19 02/06/24 00:25 Labs: Laboratory Results - last 24 hr 02/05/24 02/05/24 02/05/24 21:19 21:25 22:45 WBC 6.7 RBC 4.31 L Hgb 13.9 Hct 39.1 L MCV 90.7 MCH 32.1 MCHC 35.4 RDW 13.9 Plt Count 124 L Neut % (Auto) 85.8 H Lymph % (Auto) 7.8 L [place] % (Auto) 5.9 Eos % (Auto) 0.3 L Baso % (Auto) 0.2 Neut # (Auto) 5800 Lymph # (Auto) 500 L [place] # (Auto) 400 Eos # (Auto) 0 Baso # (Auto) 0 PT 12.4 INR 1.1 APTT 21 L ABG Sample Site ABG pH ABG pCO2 ABG pO2 ABG HCO3 ABG Total CO2 ABG O2 Saturation ABG Base Excess VBG pH 7.27 L VBG pCO2 < 20.0 L VBG pO2 133 H VBG HCO3 3 L VBG Total CO2 < 5 L VBG O2 Saturation 99 H VBG Base Excess -24.0 L FiO2 21 Sodium 129 L Potassium 3.7 Chloride 99 Carbon Dioxide 18 L BUN 36 H Creatinine 1.01 Estimated GFR > 60 BUN/Creatinine Ratio 35.6 H Glucose 341 H Lactate 1.9 Calcium 8.5 Total Bilirubin 1.9 H AST 52 ALT 30 Alkaline Phosphatase 105 Total Protein 7.5 Albumin 4.1 Globulin 3.4 Albumin/Globulin Ratio 1.2 Lipase 178 Procalcitonin 2.66 H Urine RBC Urine WBC Ur Squamous Epith Cells Urine Bacteria Ur Culture Indicated? Vol Urine Centrifuged Chlamy pneumoniae PCR Not detected Adenovirus (PCR) Not detected B.parapertussis DNA PCR Not detected Coronavirus OC43 (PCR) Not detected Coronavirus HKU1 (PCR) Not detected Coronavirus 229E (PCR) Not detected SARS-CoV-2 (PCR) Not detected Coronavirus NL63 (PCR) Not detected Human Metapneumovir PCR Not detected Influenza Type A (PCR) Not detected Influenza Type B (PCR) Not detected M. pneumoniae (PCR) Not detected Parainfluenza 1 (PCR) Not detected Parainfluenza 2 (PCR) Not detected Parainfluenza 3 (PCR) Not detected Parainfluenza 4 (PCR) Not detected RSV (PCR) Not detected Entero/Rhino (PCR) Not detected 02/05/24 02/06/24 02/06/24 22:51 00:25 01:29 WBC RBC Hgb Hct MCV MCH MCHC RDW Plt Count Neut % (Auto) Lymph % (Auto) [place] % (Auto) Eos % (Auto) Baso % (Auto) Neut # (Auto) Lymph # (Auto) [place] # (Auto) Eos # (Auto) Baso # (Auto) PT INR APTT ABG Sample Site Left radial ABG pH 7.41 ABG pCO2 27.6 L ABG pO2 65 L ABG HCO3 17 L ABG Total CO2 18 L ABG O2 Saturation 93 L ABG Base Excess -7.0 L VBG pH VBG pCO2 VBG pO2 VBG HCO3 VBG Total CO2 VBG O2 Saturation VBG Base Excess FiO2 21 Sodium 131 L Potassium 3.4 Chloride 104 Carbon Dioxide 17 L BUN 28 H Creatinine 0.84 Estimated GFR > 60 BUN/Creatinine Ratio 33.3 H Glucose 289 H Lactate Calcium 7.5 L Total Bilirubin AST ALT Alkaline Phosphatase Total Protein Albumin Globulin Albumin/Globulin Ratio Lipase Procalcitonin Urine RBC 0-1/hpf Urine WBC 10-30/hpf H Ur Squamous Epith Cells 0-1 /hpf Urine Bacteria Many (>30) H Ur Culture Indicated? Cult not indicated Vol Urine Centrifuged 10ml (spun) Chlamy pneumoniae PCR Adenovirus (PCR) B.parapertussis DNA PCR Coronavirus OC43 (PCR) Coronavirus HKU1 (PCR) Coronavirus 229E (PCR) SARS-CoV-2 (PCR) Coronavirus NL63 (PCR) Human Metapneumovir PCR Influenza Type A (PCR) Influenza Type B (PCR) M. pneumoniae (PCR) Parainfluenza 1 (PCR) Parainfluenza 2 (PCR) Parainfluenza 3 (PCR) Parainfluenza 4 (PCR) RSV (PCR) Entero/Rhino (PCR) Assessment & Plan Assessment and plan (1) Sepsis: Qualifiers: Sepsis type: sepsis due to unspecified organism Sepsis acute organ dysfunction status: without acute organ dysfunction Qualified Code(s): A41.9 - Sepsis, unspecified organism Status: Acute (2) Pyelonephritis of left kidney: Status: Acute Plan: Temp 102.2, HR 91; WBC 6.7, LA 1.9, Procal 2.66, RR 17-39 with inaccurate charting, pH 7.41 UA with mild pyuria CT: Development of slight left hydronephrosis and inflammatory change adjacent to the left kidney with development of left ureteral dilatation. The left ureter appears to enter into a bladder diverticulum. Prostatomegaly. Diffuse bladder wall thickening, potentially increased compared to earlier today. Question cystitis. There are bladder wall trabeculation suggesting chronic bladder outlet obstruction. ---- SHARMA, no nephrolithiasis Started on Rocephin in ED, continue Antibx, UCx, BCx pending s/p 2L NS, no further fluids given HFrEF CIC prn continue home Finasteride, Flomax Plan for follow up with Urology (3) Bladder outlet obstruction: Status: Chronic (4) Benign prostatic hyperplasia: Qualifiers: Lower urinary tract symptom presence: symptoms present Lower urinary tract symptom detail: urinary retention Qualified Code(s): N40.1 - Benign prostatic hyperplasia with lower urinary tract symptoms; R33.8 - Other retention of urine Status: Chronic (5) Type 2 diabetes mellitus with hyperglycemia, with long-term current use of insulin: Status: Chronic Plan: Reduced basal insulin NPH 25 units BID to 15 units BID with SSI, hold home Metformin Last A1c 8.6 12/31 Hyperglycemia, UA without ketones, pH 7.41, no DKA continue home gabapentin, sparing use of opioids Assessment & Plan narrative: Chronic alcohol use with Hepatosplenomegaly on CT, Elevated bilirubin 1.9 with benign abdominal exam Thrombocytopenia, no indication for transfusion at this time, monitor Acute on chronic hyponatremia, mild, Na 131 from baseline 135, s/p IV fluids, monitor Chronic hypomagnesemia, Mag 0.7 12/31 on home oral replacement trending up complicated by SE of diarrhea, level pending NICM s/p ICD, HFrEF LVEF 45-50% 02/14/23 from previous 35%, monitor fluid status closely; continue home Entresto, Carvedilol Sinus tachycarida, continue home Ivabradine HTN, as above HLD, continue home statin therapy H/o TIA, not on ASA H/o SDH, chronic subdural hygroma following with Neurology Seizure disorder, continue home Keprra H/o GI bleed due to NSAID use with duodenol ulcer, continue home PPI BID H/o back surgery H/o tobacco use LEONARDO on CPAP Depression Time Spent With Patient Time with patient: 50 to 69 minutes with 50% spent counseling/coordinating care
[2024-02-06] MEDS: PANTOPRAZOLE DR 40 MG TABLET PO ×2 (06:06→17:33)
[2024-02-06] MEDS: GABAPENTIN 300 MG CAPSULE PO ×2 (06:07→09:00)
[2024-02-06 06:45] LABS: Add Manual Diff / Slide Review NO; Basophils Absolute Auto 0 /uL (0-100); Basophils Percent Auto 0.2 % (0-2); Eosinophils Absolute Auto 0 /uL (0-450); Hemoglobin 12.2 g/dL (13.5-17.5); Lymphocytes Absolute Auto 600 /uL (1100-4500); Lymphocytes Percent Auto 8.3 % (25-40); Mean Corpuscular HGB Conc 34.9 % (30-36); Mean Corpuscular Hemoglobin 31.9 PG (26-34); Mean Corpuscular Volume 91.5 fL (80-100); Monocytes Absolute Auto 800 /uL (0-900); Monocytes Percent Auto 10.3 % (3-14); Neutrophils Absolute Auto 6000 /uL (1500-7000); Neutrophils Percent Auto 81.2 % (50-75); Platelet Count 90 X10^3/uL (150-400); Red Blood Cell Count 3.83 X10^6/uL (4.5-5.9); Red Cell Distribution Width 13.4 % (11.6-14.8); White Blood Cell Count 7.4 X10^3/uL (4.5-11.0)
[2024-02-06 07:03] LABS: BUN Creatinine Ratio 33.8 (6-22); Blood Urea Nitrogen 24 mg/dL (9-20); Calcium 7.7 mg/dL (8.4-10.2); Carbon Dioxide 18 mmol/L (22-32); Chloride 103 mmol/L (98-107); Estimated Glomerular Filt Rate > 60 mL/min (>60); Glucose 288 mg/dL (80-110); HEMOLYSIS 22 (0-50); Potassium 3.5 mmol/L (3.4-5.1); Sodium 133 mmol/L (137-145)
--- NOTE | 2024-02-06 07:43 | P.PN_ITS ---
Subjective Subjective Date Patient Seen: 02/06/24 Time Patient Seen: 07:43 Interval history: Patient well known to me admitted to the hospitalist service overnight when ER was not able to contact physician covering for my service. Patient admitted with urosepsis. Obvious UTI and probable pyelonephritis. Patient was longstanding history of issues with bladder outlet obstructive kind of symptoms. Was catheterized post back surgery for quite some time was able to have his catheter removed in November of this year. Has had UTIs although those been associated with his catheterization most recently a Klebsiella organism and prior to that multiple other organisms. Patient's labs were reassuring fortunately. Normal white blood cell count renal function stable. Hyperglycemic as expected with his poorly controlled diabetes. He was given IV fluids IV antibiotics and admitted to the hospitalist service as above Exam Vital Signs (past 8 hours): - 02/06/24 00:00 02/06/24 00:27 02/06/24 00:28 Temperature 98.2 F Pulse Rate 79 Respiratory Rate 30 H Blood Pressure 138/65 Pulse Oximetry 94 Oxygen Delivery Method Oxygen Flow Rate 02/06/24 00:28 02/06/24 00:30 02/06/24 00:53 Temperature 98.2 F Pulse Rate 79 79 Respiratory Rate 23 17 Blood Pressure Pulse Oximetry 94 94 Oxygen Delivery Method Room Air Oxygen Flow Rate 02/06/24 01:00 02/06/24 01:00 02/06/24 01:30 Temperature Pulse Rate 78 74 Respiratory Rate 22 30 H Blood Pressure 132/66 Pulse Oximetry 95 Oxygen Delivery Method Room Air Oxygen Flow Rate 02/06/24 02:00 02/06/24 02:00 02/06/24 03:00 Temperature Pulse Rate 76 74 Respiratory Rate 30 H 22 Blood Pressure 131/63 131/60 Pulse Oximetry 91 93 Oxygen Delivery Method Room Air Room Air Oxygen Flow Rate 02/06/24 04:00 02/06/24 04:16 02/06/24 04:55 Temperature 98.2 F 97.9 F Pulse Rate 76 79 Respiratory Rate 24 16 Blood Pressure 121/59 L 139/70 Pulse Oximetry 93 97 Oxygen Delivery Method Room Air Oxygen Flow Rate 0 Oxygen Delivery Method Room Air Oxygen Flow Rate 0 Objective Labs 02/06/24 06:25 02/06/24 06:25 Labs: Laboratory Results - last 24 hr 02/05/24 02/05/24 02/05/24 21:19 21:25 22:45 WBC 6.7 RBC 4.31 L Hgb 13.9 Hct 39.1 L MCV 90.7 MCH 32.1 MCHC 35.4 RDW 13.9 Plt Count 124 L Neut % (Auto) 85.8 H Lymph % (Auto) 7.8 L [place] % (Auto) 5.9 Eos % (Auto) 0.3 L Baso % (Auto) 0.2 Neut # (Auto) 5800 Lymph # (Auto) 500 L [place] # (Auto) 400 Eos # (Auto) 0 Baso # (Auto) 0 PT 12.4 INR 1.1 APTT 21 L ABG Sample Site ABG pH ABG pCO2 ABG pO2 ABG HCO3 ABG Total CO2 ABG O2 Saturation ABG Base Excess VBG pH 7.27 L VBG pCO2 < 20.0 L VBG pO2 133 H VBG HCO3 3 L VBG Total CO2 < 5 L VBG O2 Saturation 99 H VBG Base Excess -24.0 L FiO2 21 Sodium 129 L Potassium 3.7 Chloride 99 Carbon Dioxide 18 L BUN 36 H Creatinine 1.01 Estimated GFR > 60 BUN/Creatinine Ratio 35.6 H Glucose 341 H Lactate 1.9 Calcium 8.5 Total Bilirubin 1.9 H AST 52 ALT 30 Alkaline Phosphatase 105 Total Protein 7.5 Albumin 4.1 Globulin 3.4 Albumin/Globulin Ratio 1.2 Lipase 178 Procalcitonin 2.66 H Urine RBC Urine WBC Ur Squamous Epith Cells Urine Bacteria Ur Culture Indicated? Vol Urine Centrifuged Chlamy pneumoniae PCR Not detected Adenovirus (PCR) Not detected B.parapertussis DNA PCR Not detected Coronavirus OC43 (PCR) Not detected Coronavirus HKU1 (PCR) Not detected Coronavirus 229E (PCR) Not detected SARS-CoV-2 (PCR) Not detected Coronavirus NL63 (PCR) Not detected Human Metapneumovir PCR Not detected Influenza Type A (PCR) Not detected Influenza Type B (PCR) Not detected M. pneumoniae (PCR) Not detected Parainfluenza 1 (PCR) Not detected Parainfluenza 2 (PCR) Not detected Parainfluenza 3 (PCR) Not detected Parainfluenza 4 (PCR) Not detected RSV (PCR) Not detected Entero/Rhino (PCR) Not detected 02/05/24 02/06/24 02/06/24 22:51 00:25 01:29 WBC RBC Hgb Hct MCV MCH MCHC RDW Plt Count Neut % (Auto) Lymph % (Auto) [place] % (Auto) Eos % (Auto) Baso % (Auto) Neut # (Auto) Lymph # (Auto) [place] # (Auto) Eos # (Auto) Baso # (Auto) PT INR APTT ABG Sample Site Left radial ABG pH 7.41 ABG pCO2 27.6 L ABG pO2 65 L ABG HCO3 17 L ABG Total CO2 18 L ABG O2 Saturation 93 L ABG Base Excess -7.0 L VBG pH VBG pCO2 VBG pO2 VBG HCO3 VBG Total CO2 VBG O2 Saturation VBG Base Excess FiO2 21 Sodium 131 L Potassium 3.4 Chloride 104 Carbon Dioxide 17 L BUN 28 H Creatinine 0.84 Estimated GFR > 60 BUN/Creatinine Ratio 33.3 H Glucose 289 H Lactate Calcium 7.5 L Total Bilirubin AST ALT Alkaline Phosphatase Total Protein Albumin Globulin Albumin/Globulin Ratio Lipase Procalcitonin Urine RBC 0-1/hpf Urine WBC 10-30/hpf H Ur Squamous Epith Cells 0-1 /hpf Urine Bacteria Many (>30) H Ur Culture Indicated? Cult not indicated Vol Urine Centrifuged 10ml (spun) Chlamy pneumoniae PCR Adenovirus (PCR) B.parapertussis DNA PCR Coronavirus OC43 (PCR) Coronavirus HKU1 (PCR) Coronavirus 229E (PCR) SARS-CoV-2 (PCR) Coronavirus NL63 (PCR) Human Metapneumovir PCR Influenza Type A (PCR) Influenza Type B (PCR) M. pneumoniae (PCR) Parainfluenza 1 (PCR) Parainfluenza 2 (PCR) Parainfluenza 3 (PCR) Parainfluenza 4 (PCR) RSV (PCR) Entero/Rhino (PCR) 02/06/24 06:25 WBC 7.4 RBC 3.83 L Hgb 12.2 L Hct 35.0 L MCV 91.5 MCH 31.9 MCHC 34.9 RDW 13.4 Plt Count 90 L Neut % (Auto) 81.2 H Lymph % (Auto) 8.3 L [place] % (Auto) 10.3 Eos % (Auto) 0.0 L Baso % (Auto) 0.2 Neut # (Auto) 6000 Lymph # (Auto) 600 L [place] # (Auto) 800 Eos # (Auto) 0 Baso # (Auto) 0 PT INR APTT ABG Sample Site ABG pH ABG pCO2 ABG pO2 ABG HCO3 ABG Total CO2 ABG O2 Saturation ABG Base Excess VBG pH VBG pCO2 VBG pO2 VBG HCO3 VBG Total CO2 VBG O2 Saturation VBG Base Excess FiO2 Sodium 133 L Potassium 3.5 Chloride 103 Carbon Dioxide 18 L BUN 24 H Creatinine 0.71 Estimated GFR > 60 BUN/Creatinine Ratio 33.8 H Glucose 288 H Lactate Calcium 7.7 L Total Bilirubin AST ALT Alkaline Phosphatase Total Protein Albumin Globulin Albumin/Globulin Ratio Lipase Procalcitonin Urine RBC Urine WBC Ur Squamous Epith Cells Urine Bacteria Ur Culture Indicated? Vol Urine Centrifuged Chlamy pneumoniae PCR Adenovirus (PCR) B.parapertussis DNA PCR Coronavirus OC43 (PCR) Coronavirus HKU1 (PCR) Coronavirus 229E (PCR) SARS-CoV-2 (PCR) Coronavirus NL63 (PCR) Human Metapneumovir PCR Influenza Type A (PCR) Influenza Type B (PCR) M. pneumoniae (PCR) Parainfluenza 1 (PCR) Parainfluenza 2 (PCR) Parainfluenza 3 (PCR) Parainfluenza 4 (PCR) RSV (PCR) Entero/Rhino (PCR) [facility] Medical History Incomplete emptying of bladder Bladder outlet obstruction Benign prostatic hyperplasia Lower urinary tract symptoms History of pacemaker History of depression Hx of congestive heart failure Hx of skin cancer, basal cell Acute GI bleeding Cerebrovascular accident Automatic implantable cardiac defibrillator in situ (~07/2019) Nonischemic cardiomyopathy (09/09/16) correction current use of insulin (08/20/16) Type 2 diabetes mellitus with hyperglycemia, with long-term current use of insulin Diabetic peripheral neuropathy (07/25/15) Degeneration of intervertebral disc of cervical region Essential hypertension Mixed hyperlipidemia Type 2 diabetes mellitus without complication Surgical History History of back surgery S/P lumbar fusion Social History marital status: number of children: 0 household members: none lives independently: Yes caregiver/support person: Yes housing: house pets and animals: Yes education level: other occupational status: previously employed and other current occupational exposures/hazards: No 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 Complicated UTI with possible pyelonephritis and sepsis-evidence of sepsis etcetera seems to have resolved with appropriate treatment overnight. He has been afebrile etcetera. Continue current antibiotic therapy until cultures from urine and blood have results. 2. Type 2 diabetes-continue patient on carb consistent diet with the usual insulin and coverage insulin as necessary. 3. History of chronic systolic congestive heart failure with cardiomyopathy- continue to monitor for worsening of same. Continue patient's usual medications including his Entresto and carvedilol. Monitor fluid balance carefully 4. Hypertension-continue patient's cardiac meds as above including his antihypertensives 5. Seizure disorder verses TIA-continue patient's home Keppra for what I presume to been seizures causing his neurologic symptoms in the more distant past now 6. History GI bleed secondary to NSAIDs use-continue patient's home PPI 7. Obstructive sleep apnea-continue with BiPAP/CPAP 8. Disposition-patient likely be able to go home once his infection has resolved. However patient does have a tenuous situation at home I think his ability to care for himself in the home setting is fairly marginal at best. Will consult with discharge planning as well for evaluation for additional resources we might be able to offer patient (he was remained fiercely independent despite the fact he is probably slowly failing over time)
[2024-02-06 07:57] LABS: C-Reactive Protein Quant 19.6 mg/dL (<1.0)
[2024-02-06] MEDS: INSULIN LISPRO 100 UNIT/ML 3ML VIAL SUBCUT ×4 (08:56→21:22)
[2024-02-06] MEDS: POTASSIUM CHLORIDE 20 MEQ TAB 40 MEQ PO (08:58)
[2024-02-06] MEDS: ENOXAPARIN 40 MG/0.4 ML SYRINGE SUBCUT (08:58)
[2024-02-06] MEDS: carvediloL 12.5 MG TABLET 25 MG PO ×2 (08:59→21:26)
[2024-02-06] MEDS: TAMSULOSIN 0.4 MG CAPSULE 0.8 MG PO (08:59)
[2024-02-06] MEDS: ATORVASTATIN 20 MG TABLET PO (09:00)
[2024-02-06] MEDS: FINASTERIDE 5 MG TABLET PO (09:00)
[2024-02-06] MEDS: levETIRAcetam 250 MG TABLET PO ×2 (09:00→21:27)
[2024-02-06] MEDS: DOCUSATE 100 MG CAPSULE PO ×2 (09:00→21:27)
[2024-02-06] MEDS: INSULIN NPH 100 UNIT/ML 10ML VIAL 15 UNIT SUBCUT ×2 (09:10→17:33)
--- NOTE | 2024-02-06 11:47 | CM.DANOTE ---
Patient is a 73 yo male who was admitted on 02/06/24 for Weakness. Pt has MCR and [employer] for insurance and his PCP is Dr. Salvador Guzman. EMR was reviewed. Per MD, pt with hx of some urinary retention and poorly controlled DM and admitted for Urosepsis and possible pyelonephritis. Pt getting IV-Abx and fluids and making improvements and likely stable for discharge in 1-2 days. Per RN, pt has been SBA to independent with ambulation in the room. SW met bedside with pt and his friend/DPOA Ham and explained role and pt confirms he lives at home in [place] alone but his friend/DPOA Ham lives nearby. Pt states he is independent with ADLs at baseline and has hx of hip surgery and lumbar surgery and has been able to get back to walking without DME for increasingly longer distances but still has some underlying chronic hip pain. Pt confirms that over the past couple weeks he has become increasingly weak and started getting confused/lethargic yesterday when Ham brought him to the hospital. Pt denies any hx of SNF or HH and no other supportive services in place. Pt states before , he went on a cruise to [place] from [place] where his brother and sister live and he was able to spend time with them before and after the cruise and then his brother unexpectedly right before 2022 a few months ago. Pt quite tearful but states he has been doing some grief work around his brother's . Pt declines any HH at this time and currently not interested in rodent exterminator care resources and his friend Ham confirms that he is agreeable to continue helping pt with coordinating his care needs. Pt's preference is to discharge home when medically stable and confirms he is feeling much better already. Plan: SW to follow closely for likely plan of discharge home in 1-2 days via friend Ham POV and any further identified discharge planning needs. SW to attempt again to see if pt open to any further LTC resources to remain in his home successfully. ANGELIQUE Mccall Discharge Planning/Care Management CM Discharge Assessment Start: 02/06/24 11:45 Freq: Status: Active Protocol: Document 02/06/24 11:46 BF (Rec: 02/06/24 11:47 BF [id number]) Discharge Planning Assessment Assigned Pediatrics Teacher ANGELIQUE Sims DPJIL/Assigned Designee Name friend Ham Okeefe Contact Information [phone] Advance Directives? Yes: polst Advance Directives on File Yes History Provided By Patient,Friend,Medical Record Has Patient been admitted in last 30 No days? Prior Living Arrangements House Household Members none Type of transporation used prior to Drives own vehicle admit Independent with ADL's Yes Is patient alert and oriented? Yes Needs Assistance With Home Chores / Shopping Caregiver for Another No Comment Patient states that he used a cane when he was having hip pain and now he no longer uses it. Comment SBA to indep with mobility, declining HH at this time Barriers to Discharge No Comment Lives alone, weakness. Discharge Plan Home Transportation Arrangement friend Ham confirms he can transport at d/c Referrals Initiated Other Additional Comment pt currently declining resources, will try again later today Whiteboard Updated in Patient Room with Yes name and ext. # of Pediatrics Teacher Review Status In Process Please Provide Date Initial DC 02/06/24 Assessment Was Performed Next Review Type Continued Stay Review
[2024-02-06 13:36] LABS: Acinetobacter calcoa-baumannii Not Detected (Not Detect); Bacteroides fragilis Not Detected (Not Detect); CTX-M Resistance Not Detected (Not Detect); Candida albicans Not Detected (Not Detect); Candida auris Not Detected (Not Detect); Candida glabrata Not Detected (Not Detect); Candida krusei Not Detected (Not Detect); Candida parapsilosis Not Detected (Not Detect); Candida tropicalis Not Detected (Not Detect); Cryptococcus neoformans/gatti Not Detected (Not Detect); Enterobacter cloacae complex Not Detected (Not Detect); Enterobacterales Detected (Not Detect); Enterococcus faecalis Not Detected (Not Detect); Enterococcus faecium Not Detected (Not Detect); Haemophilus influenzae Not Detected (Not Detect); IMP Resistance Not Detected (Not Detect); KPC Resistance Not Detected (Not Detect); Klebsiella aerogenes Not Detected (Not Detect); Listeria monocytogenes Not Detected (Not Detect); NDM Resistance Not Detected (Not Detect); Neisseria meningitidis Not Detected (Not Detect); OXA-48-like Resistance Not Detected (Not Detect); Proteus species Not Detected (Not Detect); Pseudomonas aeruginosa Not Detected (Not Detect); Salmonella species Not Detected (Not Detect); Serratia marcescens Not Detected (Not Detect); Staphylococcus epidermidis Not Detected (Not Detect); Staphylococcus lugdunensis Not Detected (Not Detect); Staphylococcus species Not Detected (Not Detect); Stenotrophomonas maltophilia Not Detected (Not Detect); Streptococcus agalactiae (Gr B Not Detected (Not Detect); Streptococcus pneumonia Not Detected (Not Detect); Streptococcus pyogenes (Gr A) Not Detected (Not Detect); Streptococcus species Not Detected (Not Detect); VIM Resistance Not Detected (Not Detect); mcr-1 Resistance Not Detected (Not Detect)
--- NOTE | 2024-02-06 14:28 | DIET.CONS ---
Dietary Consultation Note Admission Date: 02/06/2024 03:58 Assessment: 73 y M presenting with weakness. Nutrition consulted for diabetic diet. Met with pt at bedside. Reports not typically following any eating pattern to help BG. Has not been checking BG recently. Pt reports 40# (18 kg) loss or 16.5% loss (severe) from usual reported body weight of 200# (90 kg) since October 2023 due to decreased appetite and stress from multiple ongoing health issues. Noted STOPPERER ASSEMBLER note that pt's brother during this time. Noted per chart, pt's highest weight in last 6 months is 180# (81.647 kg) on 07/07/23. Pt reported UBW of 200# reflects pt's weight Oct 2022. Diet recall: B-[employer] cheese and ham breakfast sandwich L-sometimes 1/2-1 sandwich D-Various, meat, carb dish or will go out to eat Nutrition focused physical exam performed: Muscle wasting: -Mild loss in temporalis -No loss in interosseous -No loss in clavicle region Subcutaneous fat loss: -Mild loss in orbital fat pads -Mild loss in buccal fat pads Ht: 170.18 cm Wt: 75 kg BMI: 25.9 UBW: 90 kg per pt Oct 2023, 16.5% weight loss in 3 months Last BM: 02/05/24 (02/06/24 01:54) MNA: 14 Ashok Score: 20 Diet: 02/06/24 Breakfast Carbohydrate Consistent Diet Diet Modifications: Carbohydrate level: Medium (3 CHO) Bedtime snack: Yes Reflex DM orders: No Nutrition Percent Meal Consumed 75% 02/06/24 08:00 Labs: RBC 3.83 X10^6/uL (4.5-5.9) L 02/06/24 06:25 Hgb 12.2 g/dL (13.5-17.5) L 02/06/24 06:25 Hct 35.0 % (41-53) L 02/06/24 06:25 Creatinine 0.71 mg/dL (0.66-1.25) 02/06/24 06:25 Lactate 1.9 mmol/L (0.7-2.1) 02/05/24 21:19 Nutrition Diagnosis: Unintended weight loss r/t to decreased appetite likely due to stress/grief as evidenced by pt reports 16.5% weight loss within 6 months Interventions: 1. Recc max protein ensure to try to help maintain adequate intake with decrease appetite, will send up at meal 2. MNT for DM2 provided, cognizant of pt's current stress/grief EER: 8860-5102 kcals/day (25 kcals/kg per BMI) 85-95 g protein (1.2 g/kg) Monitoring/Evaluations: PO intakes, weight Electronically Signed by: Iris Espinoza 02/06/24 14:28 Clinical Diet[address] [id number]
--- NOTE | 2024-02-06 18:25 | PC.NURSE ---
mobility bob pt is only SBA, however, he is incontinent of bladder. He had a bowel movement today but was having difficulty wiping himself. pt needs constant queuing with ADLs.
[2024-02-06] MEDS: GABAPENTIN 300 MG CAPSULE 600 MG PO (21:27)
[2024-02-06] MEDS: HYDROCODONE/ACET 5/325 TABLET 1 TAB PO (22:38)
[2024-02-06] MEDS: cefTRIAXone 1,000 MG in SODIUM CHLORIDE 0.9% 100 ML 200 MG IV (22:40)
--- NOTE | 2024-02-06 22:51 | PC.NURSE ---
Pt assisted to bathroom by DISTRICT ASSOCIATE JUDGE. Pants were around ankles when patient stood up. Resistant to cueing by DISTRICT ASSOCIATE JUDGE to sit down for assistance, he became agitated, swearing and slamming walker against floor, when trying to get pants from around feet. When directed by this RN, patient agreed to sit and allow assistance to get pants from around feet.
[2024-02-07 00:03] VITALS: BP 115/49; PULSE 80; RESP 16; TEMP 36; O2SAT 92
[2024-02-07 04:29] VITALS: BP 140/70; PULSE 77; RESP 18; TEMP 36.3; O2SAT 95
[2024-02-07] MEDS: PANTOPRAZOLE DR 40 MG TABLET PO ×2 (06:05→17:20)
[2024-02-07 08:00] VITALS: BP 138/60; PULSE 73; RESP 16; TEMP 36.3; O2SAT 93
[2024-02-07] MEDS: INSULIN LISPRO 100 UNIT/ML 3ML VIAL SUBCUT ×3 (08:12→17:26)
[2024-02-07] MEDS: INSULIN NPH 100 UNIT/ML 10ML VIAL 15 UNIT SUBCUT ×2 (08:12→17:27)
[2024-02-07 08:18] VITALS: BP 138/60; PULSE 76
[2024-02-07] MEDS: carvediloL 12.5 MG TABLET 25 MG PO (08:18)
[2024-02-07] MEDS: FINASTERIDE 5 MG TABLET PO (08:18)
[2024-02-07] MEDS: TAMSULOSIN 0.4 MG CAPSULE 0.8 MG PO (08:18)
[2024-02-07] MEDS: GABAPENTIN 300 MG CAPSULE PO (08:18)
[2024-02-07] MEDS: levETIRAcetam 250 MG TABLET PO (08:18)
[2024-02-07] MEDS: DOCUSATE 100 MG CAPSULE PO (08:18)
[2024-02-07] MEDS: ATORVASTATIN 20 MG TABLET PO (08:18)
--- NOTE | 2024-02-07 10:35 | PM.DS.1 ---
History of Present Illness History of Present Illness Date Patient Seen: 02/07/24 Time Patient Seen: 10:35 Chief complaint: weakness Narrative: CC: UTI Pt feeling good today ate complete breakfast ambulating with almost out need for FWW gait stable. Still having some issues with incontinence but he is oriented and feels ready to go home. Has almost twenty year old cat Aron who requires his attention as well as numerous neighbors who are happy to check on him. Will plan on getting evening dose of rocephin then discharging home to f/up with PCP Dr. Guzman. Given he did have positive blood cultures will increase evening dose to 2g rocephin and discharge on cipro per conversation with pharmacy. Discharge Providers Provider Date of admission: 02/06/24 03:58 Discharge Date: 02/07/24 Primary care physician: Salvador Guzman MD Consults: 02/06/24 04:31 Consult to Dietitian, Adult Routine Comment: Reason For Exam: diabetic diet 02/06/24 07:42 Consult to Discharge Planning Routine Comment: resources for home, questionable home situation Discharge provider: Sourav Khalil MD Summary Hospital Course Discharge Diagnosis: #Complicated UTI with possible pyelonephritis and sepsis #bacteremia #Non insulin dependent type 2 diabetes #History of chronic systolic congestive heart failure with cardiomyopathy #Essential hypertension #Hx of Seizure disorder vs TIA #History of GI bleed secondary to NSAID use #Obstructive sleep apnea Hospital Course: Mr. Cisneros did well with fluids and antibiotics which were adjusted after bacteremia was discovered in his blood cultures. He was ambulating and eating well and fully oriented with no complaints on DoD. There is some concern for his support at home which will need outpatient follow up. Status at Discharge Cognitive/behavioral status at discharge: at baseline, oriented Functional status at discharge: independent ambulation Overall status at discharge: patient is progressing back to baseline Exam Vital Signs (past 8 hours): - 02/07/24 04:29 02/07/24 08:00 02/07/24 08:18 Temperature 97.4 F L 97.3 F L Pulse Rate 77 73 76 Respiratory Rate 18 16 Blood Pressure 140/70 138/60 138/60 Pulse Oximetry 95 93 Oxygen Flow Rate 0 Oxygen Delivery Method Room Air Oxygen Flow Rate 0 Narrative Exam Narrative: alert sitting up in bed Const Nutritional Appearance: average body habitus and underweight Other: matted hair HENMT Head: normocephalic and atraumatic Resp Effort & Inspection: normal respiratory effort and able to speak in complete sentences Auscultation: clear to auscultation bilaterally Cardio Rate: regular rate Heart Sounds: S1 normal and S2 normal GI Other: soft nontender nondistended Skin Rashes: no rashes Neuro General: patient alert, patient awake, patient oriented x3, gait normal and CN's II-XI intact bilaterally Objective Labs 02/06/24 06:25 02/06/24 06:25 Labs: Laboratory Results - last 24 hr 02/05/24 21:19 A.calcoaceticus-baumannii cmplx PCR Not detected Bacteroides fragilis Not detected Kaylan albicans (PCR) Not detected Kaylan auris (PCR) Not detected C. glabrata (PCR) Not detected C. krusei (PCR) Not detected C. parapsilosis (PCR) Not detected C. tropicalis (PCR) Not detected C. neoform/gattii (PCR) Not detected Enterobacterales (PCR) Detected E. cloacae complex PCR Not detected Enterococc faecalis PCR Not detected Enterococc faecium PCR Not detected E. coli (PCR) Not detected H. influenzae (PCR) Not detected Klebsiella aerogenes (PCR) Not detected Klebsiella oxytoca PCR Not detected Klebsiella pneumoniae Detected List. monocytogenes PCR Not detected N. meningitidis (PCR) Not detected Proteus species (PCR) Not detected Salmonella spp. (PCR) Not detected Serratia marcescens PCR Not detected Staphylococcus sp PCR Not detected Staph aureus (PCR) Not detected mecA/C & MREJ Resist Gene Not applicable mecA/C-Methicil Resis Gene Not applicable mcr-1 Colistin Res Gene PCR Not detected Staph epidermidis (PCR) Not detected Staph lugdunensis PCR Not detected S. maltophilia (PCR) Not detected Streptococcus sp PCR Not detected Group A Strep (PCR) Not detected Strep agalactiae (PCR) Not detected Strep pneumoniae (PCR) Not detected P. aeruginosa (PCR) Not detected Adriel/B-Vanco Res Genes Not applicable blaIMP Car res Gene PCR Not detected KPC-Carbap Res Gene PCR Not detected blaNDM Car Res Gene PCR Not detected OXA-48 Carbapenem Resis Gene (PCR) Not detected blaVIM Car Res Gene PCR Not detected CTX-M Gene Resistance (PCR) Not detected PFSH Medical History Incomplete emptying of bladder Bladder outlet obstruction Benign prostatic hyperplasia Lower urinary tract symptoms History of pacemaker History of depression Hx of congestive heart failure Hx of skin cancer, basal cell Acute GI bleeding Cerebrovascular accident Automatic implantable cardiac defibrillator in situ (~07/2019) Nonischemic cardiomyopathy (09/09/16) 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 use of insulin (08/20/16) Type 2 diabetes mellitus with hyperglycemia, with long-term current use of insulin Diabetic peripheral neuropathy (07/25/15) Degeneration of intervertebral disc of cervical region Essential hypertension Mixed hyperlipidemia Type 2 diabetes mellitus without complication Surgical History History of back surgery S/P lumbar fusion Social History marital status: number of children: 0 household members: none lives independently: Yes caregiver/support person: Yes housing: house pets and animals: Yes education level: other occupational status: previously employed and other current occupational exposures/hazards: No 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/roman catholic: Sikhism travel history: recent leisure activities: music, reading and other Smoking Status: Never smoker quit status: quit date established second hand exposure: No alcohol intake: current substance use type: does not use caffeine: Yes Type(s) of exercise: walking frequency: 3-4 times per week Discharge Assessment & Plan Assessment and Plan Assessment: #Complicated UTI with possible pyelonephritis and sepsis #bacteremia Sepsis resolved-evidence of sepsis etcetera seems to have resolved with appropriate treatment overnight. He has been afebrile etcetera. Per blood culture results we increased rocephin dose today and will dc on appropriate abx. #Non insulin dependent type 2 diabetes stable resume home regimen on discharge. #History of chronic systolic congestive heart failure with cardiomyopathy Stable, continue home meds #Essential hypertension Stable continue home meds #Hx of Seizure disorder vs TIA Stable continue home regimen this is past history #History of GI bleed secondary to NSAID use Stable no bleed today avoid NSAIDS and continue patient's home PPI #Obstructive sleep apnea Stable continue pressure support at night Dispo: home, would be appropriate for HH if amenable. Agree his home situation is tenuous and he is having some continence issues here and benefitting from prompting however he is adamant in desire to go home. If he will accept additional services he might benefit from them - regardless, stable to go home today to f/up with PCP as outpatient. PCP: Megan Discharge Plan Discharge Plan Patient Disposition: Home Health Service Discharge orders & Medications Prescriptions: New ciprofloxacin HCl 500 mg tablet 500 mg PO BID 7 Days Qty: 14 0RF Continued nortriptyline 50 mg capsule See Rx Instructions PO HS Qty: 180 3RF Dose Instruction: 1-2 caps PO HS; Rx Instructions: 1-2 caps PO HS; (DME) pen needle, diabetic [1st Tier Unifine Pentips] 31 gauge x 5/16 needle See Rx Instructions .Route Qty: 100 3RF Rx Instructions: Use to administer insulin bid and as necessary atorvastatin 20 mg tablet 20 mg PO DAILY Qty: 90 3RF omeprazole 40 mg capsule,delayed release(DR/EC) 40 mg PO BID Qty: 60 3RF tamsulosin 0.4 mg capsule 0.8 mg PO DAILY Qty: 180 3RF magnesium oxide 400 mg (241.3 mg magnesium) tablet 400 mg PO BID Qty: 180 3RF Hold Instructions: diarrhea metformin 500 mg tablet extended release 24 hr 1,000 mg PO BID Qty: 360 3RF levetiracetam 500 mg tablet 250 mg PO BID Rx Instructions: 250 PO BID for 2 weeks, then increase to 500mg BID. Humulin 70/30 U-100 KwikPen 100 unit/mL (70-30) insulin pen 25 unit SUBCUT BID Qty: 200 10RF Patient Comments: pt took 12 units this morning for surgery (only 1/2 his dose as instructed) Rx Instructions: 25 units twice daily, SUBCUT ; potassium chloride 10 mEq tablet extended release 10 meq PO DAILY Qty: 90 3RF Entresto 49-51 mg tablet 1 tab PO BID oxycodone 5 mg tablet 5 mg PO Q4-6H MDD 4 tabs PRN (Reason: pain, moderate) Qty: 60 0RF gabapentin 300 mg capsule See Rx Instructions PO BID Qty: 270 3RF Rx Instructions: take 1 in am, 2 caps in pm (DME) blood-glucose meter [Blood Glucose Monitoring] Kit See Rx Instructions .ROUTE .MEDSUPPLY Qty: 1 0RF Rx Instructions: As directed (DME) Glucose: Test Strips 0 .Route .MEDSUPPLY Qty: 500 11RF Rx Instructions: Use as directed to check blood sugar up to 4 times daily carvedilol 25 mg tablet 25 mg PO BID Qty: 180 3RF Rx Instructions: must administer with a meal/food acetaminophen 325 mg Tablet 650 mg PO Q6HR PRN (Reason: Fever/Mild Pain (1-3)) Qty: 60 0RF ivabradine 5 mg Tablet 5 mg PO BID Qty: 180 3RF finasteride 5 mg tablet 5 mg PO DAILY Qty: 90 3RF Follow up/Referrals: Salvador Guzman MD [Primary Care Provider] - Visit Report/Discharge Packet Stand Alone Forms: Patient Portal/API, Stroke Signs & Symptoms Discharge Data Primary Care Provider: Salvador Guzman
[2024-02-07 11:00] VITALS: BP 130/63; PULSE 78; RESP 16; TEMP 36.2; O2SAT 93
--- NOTE | 2024-02-07 12:11 | CM.DPC ---
DCP Cont. Reviewed EMR and team rounds for status updates. Met with Dr. Khalil while rounding. Plan is for pt to have one more dose of IV ABO's this afternoon, then d/c home after dinner. Simran recommended Home Health. Met with pt to clarify agency preference. Pt has opted for [facility]. Emailed [facility] and included the F/F form. Copy is in CM scanning folder. He has a friend that will transport him home once ready. No further d/c planning needs indicated at this time.
[2024-02-07 15:00] VITALS: BP 136/72; PULSE 82; RESP 16; TEMP 36.5; O2SAT 95
[2024-02-07] MEDS: cefTRIAXone 2,000 MG in SODIUM CHLORIDE 0.9% 100 ML 200 MG IV (17:20)
--- NOTE | 2024-02-07 18:37 | PC.NURSE ---
Pt discharged home by bella at 1825, escorted off floor in wheelchair, accompanied by hospital staff. IVs removed, discharge teaching completed including new medications, follow up appointments and worsening symptoms. Questions answered and concerns addressed. Patient left the floor with all belongings.
== END 2024-02-07 18:42 | disposition home health service (06) | DRG 872 ==
LOC: ED 21:12 → AC 02-06 01:55
PROVIDERS: Admitting Provider Internal Medicine; Emergency Provider Emergency Medicine; PCP Internal Medicine; Referring Provider Emergency Medicine; Visit Provider Internal Medicine
DX: A41.9 Sepsis, unspecified organism (principal); N10 Acute pyelonephritis; I50.22 Chronic systolic (congestive) heart failure; N40.1 Benign prostatic hyperplasia with lower urinary tract symptoms; R33.8 Other retention of urine; E11.65 Type 2 diabetes mellitus with hyperglycemia; I11.0 Hypertensive heart disease with heart failure; G47.33 Obstructive sleep apnea (adult) (pediatric); E78.2 Mixed hyperlipidemia; G40.909 Epilepsy, unspecified, not intractable, without status epilepticus; Z87.19 Personal history of other diseases of the digestive system; Z79.4 Long term (current) use of insulin; Z79.84 Long term (current) use of oral hypoglycemic drugs
CPT/HCPCS: 36415; 36600; 71045; 74177; 80048; 80053; 81003; 81015; 82805; 82962; 83605; 83690; 84145; 85025; 85610; 85730; 86140; 87040; 87077; 87086; 87154; 87186; 87633; 93005; 93010; 96365; 96375; 99232; 99285; J0696; J1650; J1815; Q9967

== ENCOUNTER → 2024-02-18 12:21 | Outpatient (CLI) | payer MEDICARE, SELFPAY ==
[2023-09-17 09:38] VITALS: PULSE 55; RESP 16; O2SAT 100; BMI 27.2
[2024-02-06 01:54] VITALS: BMI 25.9
--- NOTE | 2024-02-18 12:24 | DI.ECHO.S_ITS ---
[facility]+ [facility] : : [id number] : [place] : : [id number] : : Phone: [phone] Echocardiogram Report + + :Name: CHRISTOPHE COBOS Study Date: 02/18/2024 Height: 67 in : :[facility] ReadingLocation: Weight: 166 lb : : Gender: Male BSA: 1.9 m2 : :: 1950 Age: 73 yrs BP: 122/75 mmHg: :Reason For Study: CHEST PAIN : :Ordering Physician: MARY, : :HSEILA Performed By: Crista Warner : :Referring: SHEILA HERNANDEZ : + + Interpretation Summary The left ventricle is normal in size. The ejection fraction is estimated to be 45-50%. There has been no significant change in LVEF since the previous exam. The right ventricle is normal in size and function. There is a pacemaker lead in the right ventricle. There is mild to moderate mitral regurgitation. Previously mild MR. There is mild aortic regurgitation. Compared to the prior echo study, there has been no change in the severity of aortic regurgitation. There is mild to moderate tricuspid regurgitation. Previously mild TR. The right ventricular systolic pressure is estimated to be at least 26 mmHg based on an estimated right atrial pressure of 3 mm Hg. The ascending aorta is mild-moderately enlarged. 4.2 cm in diameter. No significant change from the previous study. Procedure: A two-dimensional transthoracic echocardiogram with color flow and Doppler was performed. The study quality was technically adequate. Comparison is made with the echocardiogram of 02/14/2023. The patient was in sinus bradycardia with heart rates between 57-62 bpm during the exam. Intermittent ventricular pacing. The patient had a bundle branch block rhythm during the exam. Left Ventricle: The left ventricle is normal in size. Left ventricular wall thickness is at the upper limits of normal. There is no thrombus. The ejection fraction is estimated to be 45-50%. There has been no significant change since the previous exam. Baseline inferior wall and basal inferoseptal hypokinesis. Overall global hypokinesis improved. Diastolic parameters suggest a relaxation abnormality of the left ventricle, consistent with probable normal filling pressures. Right Ventricle: There is a pacemaker lead in the right ventricle. The right ventricle is normal in size and function. Atria: The left atrial size is normal. Both atria have significantly decreased in size since the prior echo exam. There is a catheter/pacemaker lead seen in the right atrium. Right atrial size is normal. The atrial septum is aneurysmal. Mitral Valve: The mitral valve leaflets appear mildly thickened, but open well. The mitral valve leaflets are mildly calcified. There is mild to moderate mitral regurgitation. Aortic Valve: The aortic valve is trileaflet. The aortic valve is slightly calcified. There is no aortic valve stenosis. There is mild aortic regurgitation. Compared to the prior echo study, there has been no change in the severity of aortic regurgitation. Tricuspid Valve: The tricuspid valve is normal. There is mild to moderate tricuspid regurgitation. The right ventricular systolic pressure is estimated to be at least 26 mmHg based on an estimated right atrial pressure of 3 mm Hg. Pulmonic Valve: The pulmonic valve leaflets are thin and pliable; valve motion is normal. There is no pulmonic valvular regurgitation. Great Vessels: The aortic root is normal size. The ascending aorta is mild- moderately enlarged. The IVC is of normal diameter and collapses greater than 50% with a sniff. This suggests a low right atrial pressure of 3 mm Hg. Pericardium/ Pleura There is no pericardial effusion. There is no pleural effusion. MMode/2D Measurements & Calculations LVIDd: 5.1 cm LVOT diam: 2.1 cm LVIDs: 4.0 cm Ao root diam: 4.2 cm FS: 21.6 % asc Aorta Diam: 4.2 cm EPSS: 1.8 cm Ao Arch Diam (Prox Trans): 3.5 cm IVSd: 1.0 cm LVPWd: 1.1 cm LV thompson. diameter/BSA (cm/m^2): 2.7 LV sys. diameter/BSA (cm/m^2): 2.1 LA A2 area: 19.3 cm2 RA long axis: 5.2 cm LA A4 area: 17.3 cm2 RA area: 14.7 cm2 LA length (vol): 5.1 cm RA vol: 35.3 ml LA vol: 56.2 ml RA : 18.9 ml/m2 LA vol index: 30.1 ml/m2 IVC diam: 1.7 cm RVD1 (basal): 4.1 cm RVD2 (mid): 3.2 cm TAPSE: 2.3 cm Doppler Measurements & Calculations Ao V2 max: 115.9 cm/sec LVOT Max Ozzie: 60.0 cm/sec Ao V2 mean: 88.2 cm/sec LV V1 max P.4 mmHg Ao max P.4 mmHg LV V1 VTI: 14.1 cm Ao mean P.3 mmHg ADAM(I,D): 2.0 cm2 Ao V2 VTI: 24.2 cm ADAM(V,D): 1.8 cm2 sev ratio: 0.58 ADAM indexed to BSA (cm^2/m^2): 1.1 MV E max ozzie: 49.8 cm/sec TR max ozzie: 240.7 cm/sec MV A max ozzie: 61.7 cm/sec TR max P.2 mmHg MV E/A: 0.81 PA V2 max: 83.3 cm/sec Med Peak E' Ozzie: 3.9 cm/sec PA V2 mean: 58.5 cm/sec E/E' med: 12.9 PA mean P.5 mmHg Lat Peak E' Ozzie: 5.1 cm/sec PA pr(Accel): 44.7 mmHg E/E' lat: 9.7 E/e' average: 11.3 MV dec time: 0.31 sec SV(LVOT): 48.6 ml Reading Physician:04:11 PM
== END ==
PROVIDERS: PCP Internal Medicine; Referring Provider Nurse Practitioner Acute Care; Visit Provider Nurse Practitioner Acute Care
DX: I08.3 Combined rheumatic disorders of mitral, aortic and tricuspid valves (principal); R07.89 Other chest pain; I42.8 Other cardiomyopathies; I77.89 Other specified disorders of arteries and arterioles
CPT/HCPCS: 93306

== ENCOUNTER → 2024-03-04 08:26 | Outpatient (CLI) | payer MEDICARE, SELFPAY ==
[2023-09-17 09:38] VITALS: PULSE 55; RESP 16; O2SAT 100
[2024-02-06 01:54] VITALS: BMI 25.9
[2024-03-04 10:06] LABS: Add Manual Diff / Slide Review NO; Basophils Absolute Auto 0 /uL (0-100); Basophils Percent Auto 0.3 % (0-2); Eosinophils Absolute Auto 200 /uL (0-450); Eosinophils Percent Auto 4.1 % (2-4); Hematocrit 38.5 % (41-53); Hemoglobin 13.3 g/dL (13.5-17.5); Lymphocytes Absolute Auto 1600 /uL (1100-4500); Lymphocytes Percent Auto 36.6 % (25-40); Mean Corpuscular HGB Conc 34.5 % (30-36); Mean Corpuscular Volume 92.6 fL (80-100); Monocytes Absolute Auto 400 /uL (0-900); Monocytes Percent Auto 8.1 % (3-14); Neutrophils Absolute Auto 2300 /uL (1500-7000); Neutrophils Percent Auto 50.9 % (50-75); Platelet Count 101 X10^3/uL (150-400); Red Blood Cell Count 4.15 X10^6/uL (4.5-5.9); Red Cell Distribution Width 14.9 % (11.6-14.8); White Blood Cell Count 4.4 X10^3/uL (4.5-11.0)
[2024-03-04 10:20] LABS: Hemoglobin A1C% w Est Avg Glu 11.3 % (4.0-6.0)
[2024-03-04 13:03] LABS: Alanine Aminotransferase 19 IU/L (<50); Albumin 4.4 g/dL (3.5-5.0); Albumin Globulin Ratio 1.5 (1.0-2.8); Alkaline Phosphatase 67 U/L (38-126); Aspartate Aminotransferase 28 IU/L (17-59); Bilirubin Total 1.1 mg/dL (0.2-1.3); Blood Urea Nitrogen 14 mg/dL (9-20); Carbon Dioxide 24 mmol/L (22-32); Chloride 106 mmol/L (98-107); Cholesterol 115 mg/dL (140-199); Estimated Glomerular Filt Rate > 60 mL/min (>60); Glucose 97 mg/dL (80-110); HDL Cholesterol 41 mg/dL (40-60); HEMOLYSIS < 15 (0-50); LDL Cholesterol Calculated 43 mg/dL (<100); Potassium 3.6 mmol/L (3.4-5.1); Sodium 140 mmol/L (137-145); Total Protein 7.4 g/dL (6.3-8.2); Triglycerides 155 mg/dL (35-150)
[2024-03-04 21:44] LABS: Creatinine Urine Random 106.6 mg/dL; Microalbumi Creatinin Ratio Ur 698.8 ug/mg CR (<30); Microalbumin Urine Random 74.5 mg/dL (0-1.6)
== END ==
PROVIDERS: PCP Internal Medicine; Referring Provider Internal Medicine; Visit Provider Internal Medicine
DX: R73.9 Hyperglycemia, unspecified (principal); I10 Essential (primary) hypertension; E78.2 Mixed hyperlipidemia
CPT/HCPCS: 36415; 80053; 80061; 82043; 82570; 83036; 83735; 85025

== ENCOUNTER → 2024-04-02 08:35 | Outpatient (CLI) | payer MEDICARE, SELFPAY ==
[2023-09-17 09:38] VITALS: PULSE 55; RESP 16; O2SAT 100
[2024-02-06 01:54] VITALS: BMI 25.9
--- NOTE | 2024-04-02 22:18 | DI.NM.S_ITS ---
DATE OF SERVICE: 04/02/2024 NUCLEAR CARDIOLOGY MYOCARDIAL PERFUSION STUDY PROCEDURE: Exercise treadmill, converted to pharmacologic vasodilator stress and rest myocardial perfusion imaging with gating to assess ejection fraction and regional wall motion. ORDERING PROVIDER: FLORIDA Grande INDICATIONS: The patient is a 73-year-old male with a known nonischemic cardiomyopathy with ICD who now presents with atypical chest tightness. CARDIAC STRESS: The patient was initially stressed by treadmill but was able to exercise for less than 3 minutes and unable to achieve an adequate heart rate response and therefore was converted to a pharmacologic study by the injection of 0.4 mg of regadenoson. He had a normal heart rate and blood pressure response and had minimal dyspnea without any chest discomfort. His resting ECG shows sinus rhythm with an incomplete left bundle-branch block. There are no significant ST-segment shifts or arrhythmias with exercise nor pharmacologic stress. Per protocol, 25.6 millicuries of technetium-99m Myoview was injected and he was imaged 15 minutes later using a gated SPECT acquisition protocol. Earlier in the day, while at rest, he had been injected with 11.6 millicuries of technetium-99m Myoview was imaged 15 minutes later, again using a gated SPECT acquisition protocol. FINDINGS: 1. Raw data. There is fair myocardial tracer uptake although slight motion noted on the resting images. The lung/heart ratio is normal at 0.36 with a normal TID ratio of 0.95. 2. Quantitated gated SPECT: Post-stress ejection fraction is estimated at 50% with mild global hypokinesis, more notable at the base, especially in the basal inferior wall but no other focal abnormality. The resting ejection fraction is estimated at 60% although visually appears similar to that of the post-stress ejection fraction, again with possible hypokinesis at the base of the inferior wall although image quality is suboptimal. Resting end-diastolic volume is moderately increased at 146 mL. 3. Myocardial perfusion imaging: Post-stress supine images show a fairly normal myocardial perfusion pattern but with reduced tracer activity at the base of the inferior wall, extending slightly into the mid inferior wall but in a pattern that would be consistent with diaphragmatic attenuation. Unfortunately, the patient was unable to lie prone to assess for this. There were no other perfusion defects. The resting images show an identical perfusion pattern without any areas of improvement. IMPRESSIONS: 1. Probable normal myocardial perfusion study for ischemia. 2. Subtle, fixed proximal inferior perfusion defect, likely reflecting diaphragmatic attenuation although a prior nontransmural infarction cannot be entirely excluded. There is no evidence for any myocardial ischemia. 3. Mildly reduced left ventricular systolic function with moderately increased left ventricular volumes. The proximal inferior wall may be hypokinetic but is not well visualized. 4. No angina or ECG evidence of ischemia with pharmacologic vasodilator stress, augmented with exercise. There were no arrhythmias. 5. Compared to the previous myocardial perfusion study of 10/04/2016, a similar perfusion pattern was seen with mildly reduced tracer activity in the base of the inferior wall that was fixed, and improved on prone imaging. The previous ejection fraction was 37% to 38% with an end-diastolic volume of 162 mL suggesting improvement in the left ventricular size and systolic function since the previous study. Randolph Cisneros - HEVER/melba/DANIELA doc#: [id number]/job#: [id number] dd: 04/02/2024 16:28:00 dt: 04/02/2024 21:34:00 DICTATING /COPIES TO: Edwin Aleman MD; FLORIDA Grande COPIES MNE: ZAC;
== END ==
PROVIDERS: PCP Internal Medicine; Referring Provider Nurse Practitioner Acute Care; Visit Provider Nurse Practitioner Acute Care
DX: I42.8 Other cardiomyopathies (principal); R07.89 Other chest pain; Z95.810 Presence of automatic (implantable) cardiac defibrillator; E11.65 Type 2 diabetes mellitus with hyperglycemia; Z79.4 Long term (current) use of insulin; Z68.25 Body mass index [BMI] 25.0-25.9, adult; Z71.3 Dietary counseling and surveillance
CPT/HCPCS: 78452; 93017; 97802; A9502; J2785

== ENCOUNTER → 2024-04-02 08:37 | Outpatient (CLI) | payer MEDICARE, SELFPAY ==
[2023-09-17 09:38] VITALS: PULSE 55; RESP 16; O2SAT 100
[2024-02-06 01:54] VITALS: BMI 25.9
--- NOTE | 2024-04-14 17:09 | DIAB.MNT ---
Initial Diabetes Medical Nutrition Therapy Assessment Name: Randolph Cisneros (Elpidio) Date: 04/02/24 Time: 1050a-12p Dx: Type II Diabetes Preferred Learning Style: watching/reading Elpidio presents for DM visit. DM PMH x 20-25 years. Took classes previously here at . [facility] Dm with father. Reports improved evening freq urination, though still 2x per night. Interested in CGM. Reports some recent diarrhea and constipation. Sleepy after breakfast, likely r/t hyperglycemia. Diet Recall: 7-8a: banana, 2 waffles, 8oz juice 12-130p: sandwich with bread or 1-2 eng muffins and 2c grapes or 1 can mandarin oranges sn: nothing or chips or veggie chips 5-6p: frozen meal +/- cottage cheese 9p: veggie chips x2c or 4-5 cookies 16.9oz water, 2x 16.9oz sf beverage Anthropometrics: Ht: 67 Wt: 169# 03/2024 at PCP Physical Activity: walking 2-3x per week x 20 mins Self-Monitoring Blood Glucose: has new meter. Does not know how to change lancet. reports non fasting BG of 212, 255, 265, 265 (after breakfast). All reported BG elevated. Diabetes Medications: 25u BID NPH 70/30 1000mg BID Metformin Pertinent Labs: HgA1c: 8.6% 12/2023 11.3% 03/2024 Past Medical History: (Last Reviewed 02/06/24 @ 04:40 by Stephanie Eden DO) Acute GI bleeding neg EGD/C-Scope, but dark stool at IC valve, UGI source Automatic implantable cardiac defibrillator in situ (~07/2019) Jul 19 2019 Benign prostatic hyperplasia Bladder outlet obstruction Cerebrovascular accident Degeneration of intervertebral disc of cervical region Diabetic peripheral neuropathy (07/25/15) Essential hypertension History of depression History of pacemaker Hx of congestive heart failure Hx of skin cancer, basal cell Incomplete emptying of bladder assisted current use of insulin (08/20/16) Lower urinary tract symptoms Mixed hyperlipidemia Nonischemic cardiomyopathy (09/09/16) Type 2 diabetes mellitus with hyperglycemia, with long-term current use of insulin Type 2 diabetes mellitus without complication Nutrition Rx: Carbohydrates: Meal:30-45g Snack:15-30g; Na: 2000-2300mg/day Nutrition Diagnosis: - Excessive CHO intake r/t nutrition knowledge deficit aeb diet recall - Food and nutrition related knowledge deficit r/t needing review of label reading etc aeb diet recall and pt report - Inadequate fluid intake r/t stage of change contemplative aeb pt report and diet recall Intervention: This participant was very receptive. Provided appropriate educational handouts. Discussed the following topics: Completed intake assessment. Discussed barriers to care. Importance of self-monitoring, how often, and when to check. Suggested checking at different times to evaluate meals, how to change lancet and benefits of doing so Plate Method, impact of macronutrients on blood sugar, meal timing, carbohydrate counting, pairing macronutrients and spreading out carbohydrates for better blood glucose management Recommended servings for carbohydrates at meals and snacks [facility] nutrition Brainstormed appropriate meal plan based on food preferences Role of physical activity and following provider guidelines for safety Label reading for Na and CHO Impact of juice on BG Fluids impact on BG and encouraged hydration with unsweetened beverages CGM options and benefits, directed him on self placement of starter kit sensor, discussed precautions, when to check BG with finger stick, and basics of CGM therapy Created SMART goals for patient self-care and success. Goals: Choose lower CHO frozen meals Avoid juice Add PB to breakfast Follow-up: ANASTACIO MEIER follow-up in 2-3 weeks Jhoana Knight RDN, [facility] Certified Diabetes Care and [employer]seed Oil Temperer P: [phone] Thank you for this referral
== END ==
PROVIDERS: PCP Internal Medicine; Referring Provider Internal Medicine
DX: E11.65 Type 2 diabetes mellitus with hyperglycemia (principal); Z79.4 Long term (current) use of insulin; Z68.25 Body mass index [BMI] 25.0-25.9, adult; Z71.3 Dietary counseling and surveillance
CPT/HCPCS: 97802

== ENCOUNTER → 2024-04-15 16:18 | Outpatient (CLI) | payer MEDICARE, SELFPAY ==
[2023-09-17 09:38] VITALS: PULSE 55; RESP 16; O2SAT 100
[2024-02-06 01:54] VITALS: BMI 25.9
--- NOTE | 2024-04-20 13:23 | DIAB.FU ---
Follow-up Diabetes Education Assessment Name: Randolph Cisneros (Elpidio) Date: 04/15/24 Time: 440-530p Dx: Type II Diabetes Elpidio presents for DM follow-up. 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 Would like to move forward with personal CGM. States he is trying to be more aware of food intake, especially with CGM feedback. Went for a walk when BG were elevated and noticed they came down with movement. Reduced sweets and increased veggies lately. Some high CHO intake with eating out pizza. Limited protein some meals. Low symptoms: mental fog. States he sometimes feels hungry with lower CHO portions. Physical Activity: Walking 2-3x per week. Self-Monitoring Blood Glucose: BG pretty consistently >200mg/dl. Wakes with elevations, indicating need for insulin titration. TIR: 60% very high 35% high 5% in range 0% low av mg/DL 46mg/dl std deviation 17.6% variation Diabetes Medications: 25u BID NPH 70/30 1000mg BID Metformin Pertinent Labs: HgA1c: 8.6% 12/2023 11.3% 03/2024 Past Medical History: (Last Reviewed 02/06/24 @ 04:40 by Stephanie Eden DO) Acute GI bleeding neg EGD/C-Scope, but dark stool at IC valve, UGI source Automatic implantable cardiac defibrillator in situ (~07/2019) Jul 19 2019 Benign prostatic hyperplasia Bladder outlet obstruction Cerebrovascular accident Degeneration of intervertebral disc of cervical region Diabetic peripheral neuropathy (07/25/15) Essential hypertension History of depression History of pacemaker Hx of congestive heart failure Hx of skin cancer, basal cell Incomplete emptying of bladder manager terminal current use of insulin (08/20/16) Lower urinary tract symptoms Mixed hyperlipidemia Nonischemic cardiomyopathy (09/09/16) Type 2 diabetes mellitus with hyperglycemia, with long-term current use of insulin Type 2 diabetes mellitus without complication Intervention: This participant was very receptive. Provided appropriate educational handouts. Discussed the following topics: Recent blood sugar results and trends Medication management: titration of NPH until FBG <150mg/dl Review of general nutrition recommendations and current intake, including eating out strategies and protein and veggies for satiety Physical activity plan and impact on blood sugars Next steps for CGM rx Created SMART goals for patient self-care and success. Goals: Choose lower CHO frozen meals- in progress Avoid juice- met Add PB to breakfast- met Check FBG and HS- new Every 2-3 days increase by 2-3 u (tonight by 5u) until FBG <150mg/dl- new Add cottage cheese to sandwich- new Call [facility] about CGM rx next week- new Follow-up: ANASTACIO MEIER follow-up in 3-[address] provided paperwork to PCP staff for [facility] for Dexcom G7 rx. Jhoana Knight, [facility], [facility] Certified Diabetes Care and Pin Inserter Regulator P: [phone] Thank you for this referral
== END ==
PROVIDERS: PCP Internal Medicine; Referring Provider Internal Medicine
DX: E11.9 Type 2 diabetes mellitus without complications (principal); Z79.4 Long term (current) use of insulin; Z79.84 Long term (current) use of oral hypoglycemic drugs; Z71.3 Dietary counseling and surveillance
CPT/HCPCS: G0108

== ENCOUNTER → 2024-05-10 06:51 | Outpatient (CLI) | payer MEDICARE, SELFPAY ==
[2023-09-17 09:38] VITALS: PULSE 55; RESP 16; O2SAT 100
[2024-02-06 01:54] VITALS: BMI 25.9
[2024-05-10 08:29] LABS: Hemoglobin A1C% w Est Avg Glu 8.4 % (4.0-6.0)
[2024-05-10 08:30] LABS: BUN Creatinine Ratio 23.8 (6-22); Blood Urea Nitrogen 15 mg/dL (9-20); Calcium 8.8 mg/dL (8.4-10.2); Carbon Dioxide 23 mmol/L (22-32); Chloride 106 mmol/L (98-107); Estimated Glomerular Filt Rate > 60 mL/min (>60); Glucose 121 mg/dL (80-110); HEMOLYSIS < 15 (0-50); Sodium 137 mmol/L (137-145)
== END ==
PROVIDERS: PCP Internal Medicine; Referring Provider Internal Medicine; Visit Provider Internal Medicine
DX: E11.65 Type 2 diabetes mellitus with hyperglycemia (principal); Z79.4 Long term (current) use of insulin
CPT/HCPCS: 36415; 80048; 83036

== ENCOUNTER → 2024-05-13 09:42 | Outpatient (CLI) | payer MEDICARE, SELFPAY ==
[2023-09-17 09:38] VITALS: PULSE 55; RESP 16; O2SAT 100
[2024-02-06 01:54] VITALS: BMI 25.9
--- NOTE | 2024-05-13 10:27 | DIAB.FU ---
Follow-up Diabetes Education: Personal CGM Placement Name: Randolph Cisneros (Elpidio) Date: 05/13/24 Time: Dx: Type II Diabetes Elpidio presents for DM follow-up. Brought personal CGM supplies for help with placement. Improved HgA1c. Titrated insulin up from 25u to 38u with much improved BG and denies lows. Self-Monitoring Blood Glucose: Reports FBG mostly under 150mg/dl with a few in the 170s. Much improved from last visit. Last Visit with Sample CGM: TIR: 60% very high 35% high 5% in range 0% low av mg/DL 46mg/dl std deviation 17.6% variation Diabetes Medications: 38u BID NPH 70/30 1000mg BID Metformin Pertinent Labs: HgA1c: 8.6% 12/2023 11.3% 03/2024 8.4% 05/2024 Past Medical History: (Last Reviewed 02/06/24 @ 04:40 by Stephanie Eden DO) Acute GI bleeding neg EGD/C-Scope, but dark stool at IC valve, UGI source Automatic implantable cardiac defibrillator in situ (~07/2019) Jul 19 2019 Benign prostatic hyperplasia Bladder outlet obstruction Cerebrovascular accident Degeneration of intervertebral disc of cervical region Diabetic peripheral neuropathy (07/25/15) Essential hypertension History of depression History of pacemaker Hx of congestive heart failure Hx of skin cancer, basal cell Incomplete emptying of bladder snf current use of insulin (08/20/16) Lower urinary tract symptoms Mixed hyperlipidemia Nonischemic cardiomyopathy (09/09/16) Type 2 diabetes mellitus with hyperglycemia, with long-term current use of insulin Type 2 diabetes mellitus without complication Intervention: This participant was very receptive. Provided appropriate educational handouts. Discussed the following topics: Reviewed CGM use and equipment Provided education for self-administration of CGM placement Educated patient on alarm settings Discussed when to replace equipment and disposal Reviewed Dexcom resources Reviewed potential for using phone vs power line lineman if desires Goals: Check FBG and HS- met Every 2-3 days increase by 2-3 u (tonight by 5u) until FBG <150mg/dl- met Add cottage cheese to sandwich- not discussed Call [facility] about CGM rx next week- met Wear CGM- new Call Dexcom if any sensor malfunction- new Follow-up: ANASTACIO MEIER follow-up in 4-6 weeks Jhoana Knight RDN, [facility] Certified Diabetes Care and Armored Cable Machine Operator P: [phone] Thank you for this referral
== END ==
PROVIDERS: PCP Internal Medicine; Referring Provider Internal Medicine
DX: E11.9 Type 2 diabetes mellitus without complications (principal); Z79.4 Long term (current) use of insulin; Z79.84 Long term (current) use of oral hypoglycemic drugs; Z71.3 Dietary counseling and surveillance
CPT/HCPCS: 95249

== ENCOUNTER → 2024-08-11 10:57 | Outpatient (CLI) | payer MEDICARE, SELFPAY ==
[2023-09-17 09:38] VITALS: PULSE 55; RESP 16; O2SAT 100
[2024-02-06 01:54] VITALS: BMI 25.9
[2024-08-11 13:45] LABS: Alanine Aminotransferase 30 IU/L (<50); Albumin 4.2 g/dL (3.5-5.0); Albumin Globulin Ratio 1.5 (1.0-2.8); Alkaline Phosphatase 69 U/L (38-126); Aspartate Aminotransferase 29 IU/L (17-59); Bilirubin Total 0.9 mg/dL (0.2-1.3); Blood Urea Nitrogen 20 mg/dL (9-20); Calcium 9.4 mg/dL (8.4-10.2); Carbon Dioxide 27 mmol/L (22-32); Chloride 102 mmol/L (98-107); Estimated Glomerular Filt Rate > 60 mL/min (>60); Globulin 2.8 g/dL (1.7-4.1); Glucose 208 mg/dL (80-110); HEMOLYSIS < 15 (0-50); Potassium 4.5 mmol/L (3.4-5.1); Sodium 135 mmol/L (137-145)
[2024-08-11 16:07] LABS: Hemoglobin A1C% w Est Avg Glu 6.9 % (4.0-6.0)
== END ==
PROVIDERS: PCP Internal Medicine; Referring Provider Internal Medicine; Visit Provider Internal Medicine
DX: E11.65 Type 2 diabetes mellitus with hyperglycemia (principal); Z79.4 Long term (current) use of insulin
CPT/HCPCS: 36415; 80053; 83036

== ENCOUNTER → 2024-11-02 10:30 | Outpatient (CLI) | payer MEDICARE, SELFPAY ==
[2024-08-16 11:40] VITALS: PULSE 55; RESP 16; O2SAT 100; BMI 25.9
[2024-11-02 11:35] LABS: Hemoglobin A1C% w Est Avg Glu 7.3 % (4.0-6.0)
[2024-11-02 11:45] LABS: BUN Creatinine Ratio 30.1 (6-22); Blood Urea Nitrogen 28 mg/dL (9-20); Calcium 9.5 mg/dL (8.4-10.2); Carbon Dioxide 23 mmol/L (22-32); Chloride 106 mmol/L (98-107); Estimated Glomerular Filt Rate > 60 mL/min (>60); Glucose 187 mg/dL (80-110); HEMOLYSIS < 15 (0-50); Potassium 4.7 mmol/L (3.4-5.1); Sodium 134 mmol/L (137-145)
== END ==
PROVIDERS: PCP Internal Medicine; Referring Provider Internal Medicine; Visit Provider Internal Medicine
DX: E11.9 Type 2 diabetes mellitus without complications (principal); I10 Essential (primary) hypertension; E78.2 Mixed hyperlipidemia
CPT/HCPCS: 36415; 80048; 83036

== ENCOUNTER → 2025-01-26 07:49 | Outpatient (CLI) | payer MEDICARE, SELFPAY ==
[2024-08-16 11:40] VITALS: PULSE 55; RESP 16; O2SAT 100; BMI 25.9
[2025-01-26 09:12] LABS: Hemoglobin A1C% w Est Avg Glu 6.9 % (4.0-6.0)
[2025-01-26 09:36] LABS: BUN Creatinine Ratio 19.7 (6-22); Blood Urea Nitrogen 14 mg/dL (9-20); Calcium 9.1 mg/dL (8.4-10.2); Carbon Dioxide 20 mmol/L (22-32); Chloride 105 mmol/L (98-107); Estimated Glomerular Filt Rate > 60 mL/min (>60); Glucose 177 mg/dL (80-110); HEMOLYSIS < 15 (0-50); Potassium 3.8 mmol/L (3.4-5.1); Sodium 138 mmol/L (137-145)
== END ==
PROVIDERS: PCP Internal Medicine; Referring Provider Internal Medicine; Visit Provider Internal Medicine
DX: E11.65 Type 2 diabetes mellitus with hyperglycemia (principal); Z79.4 Long term (current) use of insulin
CPT/HCPCS: 36415; 80048; 83036

== ENCOUNTER → 2025-03-29 15:42 | Outpatient (ROUT) | payer MEDICARE, SELFPAY ==
[2024-08-16 11:40] VITALS: PULSE 55; RESP 16; O2SAT 100; BMI 25.9
== END ==
PROVIDERS: PCP Internal Medicine
DX: Z48.817 Encounter for surgical aftercare following surgery on the skin and subcutaneous tissue (principal)
CPT/HCPCS: 87070; 87075; 87205

== ENCOUNTER → 2025-04-28 08:22 | Outpatient (CLI) | payer MEDICARE, SELFPAY ==
[2024-08-16 11:40] VITALS: PULSE 55; RESP 16; O2SAT 100; BMI 25.9
[2025-04-28 09:31] LABS: Alanine Aminotransferase 29 IU/L (<50); Albumin 4.5 g/dL (3.5-5.0); Albumin Globulin Ratio 1.7 (1.0-2.8); Alkaline Phosphatase 88 U/L (38-126); Aspartate Aminotransferase 31 IU/L (17-59); BUN Creatinine Ratio 17.1 (6-22); Bilirubin Total 0.9 mg/dL (0.2-1.3); Blood Urea Nitrogen 13 mg/dL (9-20); Calcium 9.9 mg/dL (8.4-10.2); Carbon Dioxide 22 mmol/L (22-32); Chloride 104 mmol/L (98-107); Estimated Glomerular Filt Rate > 60 mL/min (>60); Globulin 2.7 g/dL (1.7-4.1); Glucose 173 mg/dL (70-99); HEMOLYSIS < 15 (0-50); Potassium 4.1 mmol/L (3.4-5.1); Sodium 136 mmol/L (137-145); Total Protein 7.2 g/dL (6.3-8.2)
== END ==
PROVIDERS: PCP Internal Medicine; Referring Provider Internal Medicine; Visit Provider Internal Medicine
DX: E11.9 Type 2 diabetes mellitus without complications (principal); I10 Essential (primary) hypertension
CPT/HCPCS: 36415; 80053; 83036

== ENCOUNTER → 2025-05-17 08:03 | Outpatient (CLI) | payer MEDICARE, SELFPAY ==
[2024-08-16 11:40] VITALS: PULSE 55; RESP 16; O2SAT 100; BMI 25.9
--- NOTE | 2025-05-17 08:04 | DI.RAD.S_ITS ---
PROCEDURE: XR LUMBAR SPINE MIN 4V INDICATIONS: BACK PAIN TECHNIQUE: 5 views of the lumbar spine were acquired, including bilateral oblique views. COMPARISON: [facility], , XR LUMBAR SPINE 2-3V, 07/03/2023, 15:55. FINDINGS: Bones: 5 nonrib-bearing vertebrae are present. There is normal bony alignment. No vertebral body compression fractures. No suspicious bony lesions. Posterior and interbody surgical fusion of L4-5, without hardware complication. Mild, multilevel degenerative disc disease. Soft tissues: Overlying bowel gas pattern is normal. No suspicious soft tissue calcifications. Oblique images: No pars defects. IMPRESSION: Posterior and interbody surgical fusion of L4-5, without hardware complication. Mild, multilevel degenerative disc disease, unchanged from prior. Dictated by: Panda Moreira M.D. on 05/17/2025 at 8:56 Approved by: Panda Moreira M.D. on 05/17/2025 at 8:56
== END ==
PROVIDERS: PCP Internal Medicine; Referring Provider Orthopaedic Surgery; Visit Provider Orthopaedic Surgery
DX: M51.369 Other intervertebral disc degeneration, lumbar region without mention of lumbar back pain or lower extremity pain (principal); Z98.1 Arthrodesis status; M54.9 Dorsalgia, unspecified
CPT/HCPCS: 72110

== ENCOUNTER → 2025-05-20 08:56 | Outpatient (CLI) | payer MEDICARE, SELFPAY ==
[2024-08-16 11:40] VITALS: PULSE 55; RESP 16; O2SAT 100; BMI 25.9
--- NOTE | 2025-05-20 08:58 | DI.RAD.S_ITS ---
PROCEDURE: XR HIP W PEL IF DONE LT 2V INDICATIONS: LEFT HIP JOINT INJECTION WITH FL TECHNIQUE: AP pelvis with lateral view(s) of the left hip(s). COMPARISON: None. FINDINGS: Bones: No fractures or dislocations. Pelvic ring appears intact. No suspicious bony lesions. Mild degenerative changes of the left hip joint. Lower lumbar spondylosis. Partially imaged surgical fusion hardware of the lumbar spine. Soft tissues: The visualized bowel gas pattern is normal. No suspicious soft tissue calcifications. IMPRESSION: Left hip without acute osseous abnormalities. Mild left hip osteoarthrosis. Dictated by: Shashank Becerril M.D. on 05/20/2025 at 15:03 Approved by: Shashank Becerril M.D. on 05/20/2025 at 15:05
== END ==
PROVIDERS: PCP Internal Medicine; Referring Provider Physical Medicine & Rehabilitation; Visit Provider Physical Medicine & Rehabilitation
DX: M16.12 Unilateral primary osteoarthritis, left hip (principal); M25.552 Pain in left hip
CPT/HCPCS: 73502

== ENCOUNTER → 2025-07-20 11:15 | Outpatient (CLI) | payer MEDICARE, SELFPAY ==
[2024-08-16 11:40] VITALS: PULSE 55; RESP 16; O2SAT 100; BMI 25.9
[2025-07-20 12:10] LABS: Hemoglobin A1C% w Est Avg Glu 7.2 % (4.0-6.0)
[2025-07-20 12:30] LABS: Blood Urea Nitrogen 10 mg/dL (9-20); Calcium 10.0 mg/dL (8.4-10.2); Carbon Dioxide 23 mmol/L (22-32); Chloride 104 mmol/L (98-107); Estimated Glomerular Filt Rate > 60 mL/min (>60); Glucose 165 mg/dL (70-99); HEMOLYSIS < 15 (0-50); Potassium 4.2 mmol/L (3.4-5.1); Sodium 137 mmol/L (137-145)
[2025-07-28 23:36] LABS: Percent Free Testosterone 2.91 % (1.50-4.20)
== END ==
PROVIDERS: PCP Internal Medicine; Referring Provider Internal Medicine; Visit Provider Internal Medicine
DX: E11.42 Type 2 diabetes mellitus with diabetic polyneuropathy (principal); Z79.4 Long term (current) use of insulin; I10 Essential (primary) hypertension
CPT/HCPCS: 36415; 80048; 83036; 84402; 84403